=== PATIENT | female | born 1945 | race Caucasian/White ===

== ENCOUNTER 2016-04-02 16:22 | Observation (INO) | payer MEDICARE, OTHER ==
[~2016-04-02] VITALS: Ht 154.9 cm; Wt 44.5 kg
[~2016-04-02 16:22] MED LIST: AMOX1TAB11 PO; CALC600T4 PO; CHOL10003 PO; CHOL400T2 PO; EZET10TA3 PO; FOLI1TAB16 PO; MULT-460 PO; NADO40TA PO; OMEG100020 PO; OMEG500C3 PO; PANT40TA5 PO; POTA10TA31 PO; RIFA550T PO; SIMV40TA3 PO; UBID100C PO; [UNRECOGNIZED DRUG - CODE] PO
[2016-04-02 16:59] LABS: BILIRUBIN,URINE NEGATIVE (NEG); GLUCOSE,URINE NEGATIVE (NEG); NITRITE,URINE NEGATIVE (NEG); PH,URINE 7.5; PROTEIN,URINE NEGATIVE (NEG-TRACE); UROBILINOGEN,URINE 0.2 mg/dL (0.2 mg/dL)
[2016-04-02 17:17] LABS: BACTERIA,URINE 0 /HPF (0-FEW); RBC,URINE 0 /HPF (0-2); SQUAMOUS EPITHELIAL CELL,UR FEW /LPF; WBC,URINE 0 /HPF (0-4)
[2016-04-02 18:03] LABS: CALCIUM 9.1 mg/dL (8.5-10.1); CREATININE 0.8 mg/dL (0.6-1.0); GFR 70.5; POTASSIUM 5.2 mmol/L (3.5-5.1)
[2016-04-02 18:06] LABS: ALBUMIN 2.4 g/dL (3.4-5.0); DIRECT BILIRUBIN 0.8 mg/dL (0.0-0.2); TOTAL BILIRUBIN 2.2 mg/dL (0.2-1.0); TOTAL PROTEIN 8.1 g/dL (6.4-8.2)
[2016-04-02] MEDS ORDERED: ONDANSETRON PF 4 MG/2 ML VIAL. IV PRN (19:15)
[2016-04-02] MEDS ORDERED: MORPHINE SULFATE 2 MG/ML DISP.SYRIN. IV PRN (19:15)
--- NOTE | 2016-04-02 19:22 | PHYS DOC ---
Past Medical History Past Medical History: Alcoholism, COPD, High Cholesterol Additional Past Medical Histor: cirrhosis of liver Past Surgical History: Cholecystectomy, Other Additional Past Surgical Histo: ABD SURGERY, back surgery Alcohol Use: Heavy Drug Use: None Adult General Chief Complaint Chief Complaint: WEAKNESS/GENERALIZED HPI HPI 71-year-old female presenting to the emergency department today with generalized weakness vomiting and diarrhea this started around 10:30 today. She also reports general numbness in her fingertips of both hands. He also complains of pain in her thighs. The pain in her thighs is sharp mild intermittent and without alleviating factors. Review of Systems Review of Systems ROS negative for chest pain shortness of breath fevers chills. She denies abdominal pain. All other review of systems is negative unless otherwise noted in history of present illness. Current Medications Current Medications Current Medications Medications (Trade) Dose Ordered Sig/Sherri Start Time Stop Time Status Last Admin Dose Admin Morphine Sulfate 2 mg PRN Q2HR PRN 04/02/16 19:15 04/03/16 19:14 Ondansetron HCl (Zofran) 4 mg PRN Q8HRS PRN 04/02/16 19:15 04/03/16 19:14 Allergies Allergies Allergies Coded Allergies Type Severity Reaction Last Updated Verified No Known Drug Allergies 03/13/13 No Physical Exam Physical Exam Constitutional: Well developed, well nourished, no acute distress, non-toxic appearance. HENT: Normocephalic, atraumatic, bilateral external ears normal, oropharynx moist, no oral exudates, nose normal. Eyes: PERRLA, EOMI, conjunctiva normal, no discharge. [] Neck: Normal range of motion, no tenderness, supple, no stridor. Cardiovascular:Heart rate regular rhythm, no murmur [] Lungs & Thorax: Bilateral breath sounds clear to auscultation Abdomen: Soft nontender abdomen without rebound tenderness or guarding present. Negative McBurneys point. Negative Rincon sign. No ecchymosis present. Skin: Warm, dry, no erythema, no rash. [] Back: No tenderness, no CVA tenderness. Extremities: No tenderness, no cyanosis, no clubbing, ROM intact, no edema. [] Neurologic: Mental status: Awake oriented and alert x3 Cranial nerves: Extraocular movements intact, eyebrows anita bilaterally smile symmetric, uvula elevation, shoulder shrug intact, tongue protrusion normal DTRs: 2+ Sensation: equal and normal in all extremities Strength: 5/5 in upper and lower extremities bilaterally Psychologic: Affect normal, judgement normal, mood normal. Current Patient Data Vital Signs Vital Signs Date Time Temp Pulse Resp B/P Pulse Ox O2 Delivery O2 Flow Rate FiO2 04/02/16 17:30 56 20 134/65 97 04/02/16 17:01 97.7 Room Air 97.7 Lab Values Laboratory Tests Test 04/02/16 16:50 04/02/16 17:25 04/02/16 18:20 Urine Collection Type Unknown Urine Color Irma Urine Clarity Cloudy Urine pH 7.5 Urine Specific Posey 1.015 Urine Protein Negativemg/dL (NEG-TRACE) Urine Glucose (UA) Negativemg/dL (NEG) Urine Ketones (Stick) Negativemg/dL (NEG) Urine Blood Negative (NEG) Urine Nitrite Negative (NEG) Urine Bilirubin Negative (NEG) Urine Urobilinogen Dipstick 0.2mg/dL (0.2 mg/dL) Urine Leukocyte Esterase Negative (NEG) Urine RBC 0/HPF (0-2) Urine WBC 0/HPF (0-4) Urine Squamous Epithelial Cells Few/LPF Urine Renal Epithelial Cells Occ/LPF Urine Bacteria 0/HPF (0-FEW) Urine Hyaline Casts Many/HPF Urine Granular Casts Few/HPF Urine Mucus Mod/LPF Prothrombin Time 17.0SEC (11.7-14.0) H Prothrombin Time INR 1.5 (0.8-1.1) H PTT 48SEC (24-38) H Sodium Level 134mmol/L (136-145) L Potassium Level 5.2mmol/L (3.5-5.1) H Chloride Level 100mmol/L (98-107) Carbon Dioxide Level 21mmol/L (21-32) Anion Gap 13 (6-14) Blood Urea Nitrogen 11mg/dL (7-20) Creatinine 0.8mg/dL (0.6-1.0) Estimated GFR (Cockcroft-Gault) 70.5 Glucose Level 102mg/dL (70-99) H Calcium Level 9.1mg/dL (8.5-10.1) Total Bilirubin 2.2mg/dL (0.2-1.0) H Direct Bilirubin 0.8mg/dL (0.0-0.2) H Aspartate Amino Transferase (AST) 170U/L (15-37) H Alanine Aminotransferase (ALT) 35U/L (14-59) Alkaline Phosphatase 232U/L (46-116) H Troponin I Quantitative < 0.017ng/mL (0.000-0.055) BJ-Yly-J-Type Natriuretic Peptide 298pg/mL (0-124) H Total Protein 8.1g/dL (6.4-8.2) Albumin 2.4g/dL (3.4-5.0) L Lipase 76U/L (73-393) White Blood Count 6.7x10^3/uL (4.0-11.0) Red Blood Count 2.83x10^6/uL (3.50-5.40) L Hemoglobin 9.9g/dL (12.0-15.5) L Hematocrit 28.1% (36.0-47.0) L Mean Corpuscular Volume 99fL (79-100) Mean Corpuscular Hemoglobin 35pg (25-35) Mean Corpuscular Hemoglobin Concent 35g/dL (31-37) Red Cell Distribution Width 19.0% (11.5-14.5) H Platelet Count 63x10^3/uL (140-400) L Neutrophils (%) (Auto) 66% (31-73) Lymphocytes (%) (Auto) 21% (24-48) L Monocytes (%) (Auto) 11% (0-9) H Eosinophils (%) (Auto) 2% (0-3) Basophils (%) (Auto) 1% (0-3) Neutrophils # (Auto) 4.4x10^3uL (1.8-7.7) Lymphocytes # (Auto) 1.4x10^3/uL (1.0-4.8) Monocytes # (Auto) 0.7x10^3/uL (0.0-1.1) Eosinophils # (Auto) 0.1x10^3/uL (0.0-0.7) Basophils # (Auto) 0.1x10^3/uL (0.0-0.2) Laboratory Tests 04/02/16 18:20 Laboratory Tests 04/02/16 17:25 EKG EKG [] EKG shows sinus rhythm with a regular rate. [place] is leftward. Intervals are within normal limits. ST segments are congruent. Patient has increased amplitude in the T waves in lead 1 and aVL. Course & Med Decision Making Course & Med Decision Making Pertinent Labs and Imaging studies reviewed. (See chart for details) 71 yo F presenting to the ED with generalized weakness today. Vital signs were unremarkable. Physical exam showed 5/5 strength in upper and lower extremities with a nonfocal neuro exam. labs obtained which showed elevated bili and transaminases with prolonged INR suggestive of liver disease. Pt reports hx of liver biopsy that was "unremarkable." CBC sent but lab had to run multiple times for unknown reason. Blood smear sent. Pt was then admitted to her PCP for further evaluation workup and care. GI consult placed. Dragon Disclaimer Dragon Disclaimer This electronic medical record was generated, in whole or in part, using a voice recognition dictation system. Departure Departure Impression: Primary Impression: Generalized weakness Disposition: ADMITTED INPATIENT Admitting Physician: Micaela Crow Condition: STABLE Referrals: JEMIMA EMERY MD (PCP) BRITTNEY TATUM MD Apr 02, 2016 19:22
[2016-04-02 19:57] LABS: INR 1.5 (0.8-1.1)
[2016-04-02 21:12] LABS: BASO # 0.1 x10^3/uL (0.0-0.2); BASO % 1 % (0-3); EOS % 2 % (0-3); HEMATOCRIT 28.1 % (36.0-47.0); HEMOGLOBIN 9.9 g/dL (12.0-15.5); LYMPH # 1.4 x10^3/uL (1.0-4.8); LYMPH % 21 % (24-48); MEAN CORPUSCULAR HEMOGLOBIN 35 pg (25-35); MEAN CORPUSCULAR HGB CONC 35 g/dL (31-37); MEAN CORPUSCULAR VOLUME 99 fL (79-100); MONO % 11 % (0-9); NEUT % 66 % (31-73); PLATELET COUNT 63 x10^3/uL (140-400); RED BLOOD COUNT 2.83 x10^6/uL (3.50-5.40); WHITE BLOOD COUNT 6.7 x10^3/uL (4.0-11.0)
--- NOTE | 2016-04-02 21:28 | EKG ---
[facility] [address] [place] [address] Test Date: 2016-04-02 Test Time: 17:15:09 Pat Name: JAMES BARR Department: Room: 508 1 Gender: Female Cargo Mate: : [id number] Requested By: BRITTNEY TATUM Order Number: [id number] Reading MD: Josselyn Mancini Measurements Intervals [place] Rate: 60 P: -90 MS: 166 QRS: -15 QRSD: 80 T: 2 QT: 418 QTc: 418 Interpretive Statements SINUS RHYTHM LEFTWARD AXIS QRS(T) CONTOUR ABNORMALITY CONSISTENT WITH INFERIOR INFARCT AGE UNDETERMINED T ABNORMALITY IN ANTEROSEPTAL LEADS ABNORMAL ECG Electronically Signed On 04-05-2016 23:27:25 [employer] TEAM MEMBER by Josselyn Mancini
[2016-04-02 21:45] VITALS: BP 124/69
--- NOTE | 2016-04-02 22:37 | ACF ---
Admission Forms Criteria GENERAL ADMISSION CRITERIA (Place 'X' for any and all applicable criteria): Admission is indicated for ANY ONE of the following: [ ]I. Hemodynamic instability as indicated by ANY ONE of the following(1)(2) (3)(4)(5): [ ]a) Vital sign abnormality not readily corrected by appropriate treatment within 12 to 24 hours indicated by ANY ONE of the following: [ ]i) Hypotension [ ]ii) Symptomatic Tachycardia unresponsive to treatment (eg , analgesia, fluids, sedation as indicated) [ ]iii) Orthostatic vital sign changes unresponsive to treatment (eg, fluids) [ ]b) Vital sign abnormality that is severe indicated by ANY ONE of the following: [ ]i) Inadequate perfusion indicated by ANY ONE of the following: [ ]1) Lactic acidosis (greater than 2 mmol/L) [ ]2) New abnormal capillary refill (greater than 3 seconds) [ ]3) Other metabolic acidosis (arterial pH less than 7.35) not otherwise explained [ ]4) Reduced urine output [ ]5) Altered mental status [ ]6) Myocardial Ischemia [ ]v) Mean arterial pressure[A] less than 60 mm Hg [ ]vi) Mean arterial pressure[A] less than 70 mm Hg after 30 minutes of appropriate treatment (eg, fluid resuscitation) [ ]vii) IV inotropic or vasopressor medication required to maintain adequate blood pressure or perfusion [ ]viii) Sustained heart rate greater than 120 beats per minute in adult or child 6 years or older[B]] [ ]II. Hypertension requiring inpatient treatment as indicated by ANY ONE of the following(6)(7)(8): [ ]a) SBP greater than 220 mm Hg or DBP greater than 120 mm Hg despite treatment [ ]b) SBP greater than 140 mm Hg or DBP greater than 100 mm Hg with evidence of acute end organ damage as indicated by ANY ONE of the following: [ ]i) Encephalopathy [ ]ii) Acute renal failure as indicated by new onset of ANY ONE of the following(9)(10)(11)(12)(13): [ ]1) A 3-fold rise in serum creatinine from baseline [ ]2) Serum creatinine greater than 4 mg/dL ( 354 micromoles/L) with acute rise greater than 0.5 mg/dL (44.2 micromoles/L) [ ]3) Reduction of more than 75% in estimated glomerular filtration rate from baseline [ ]4) Estimated glomerular filtration rate less than 35 mL/min/1.73m2 (0.59 mL/sec/1.73m2) in child up to 18 years of age [ ]5) Cessation of urine output indicated by ALL of the following: [ ]A. Adequate volume status [ ]B. Inadequate urine output as indicated by ANY ONE of the following: [ ]a. Urine output less than 0.3 mL/kg/hr for 24 hours [ ]b. Anuria (urine output less than 0.1 mL/kg/hr) for 12 hours [ ]iii) Aortic dissection [ ]iv) Myocardial ischemia [ ]v) Left ventricular heart failure [ ]vi) Retinal hemorrhage [ ]vii) Other significant finding [ ]c) Hypertension in child requiring inpatient treatment as indicated by ALL of the following(14)(15)(16): [ ]i) Outpatient treatment not effective, not available, or not appropriate [ ]ii) SBP or DBP greater than 95th percentile for age [ ]iii) Evidence of acute end organ damage as indicated by ANY ONE of the following: [ ]1) Altered mental status [ ]2) Acute renal failure as indicated by new onset of ANY ONE of the following(9)(10)(11)(12)(13): [ ]A. A 3-fold rise in serum creatinine from baseline [ ]B. Serum creatinine greater than 4 mg/dL (354 micromoles/L) with acute rise greater than 0.5 mg/dL (44.2 micromoles/L) [ ]C. Reduction of more than 75% in estimated glomerular filtration rate from baseline [ ]D. Estimated glomerular filtration rate less than 35 mL/min/1.73m2 (0.59 mL/sec/1.73m2)in child up to 18 years of age [ ]E. Cessation of urine output indicated by ALL of the following: [ ]a. Adequate volume status [ ]b. Inadequate urine output as indicated by ANY ONE of the following: [ ]1) Urine output less than 0.3 mL/kg/hr for 24 hours [ ]2) Anuria (urine output less than 0.1 mL/kg/hr) for 12 hours [ ]3) Severe headache [ ]4) Visual disturbance [ ]5) Retinal hemorrhage [ ]6) Other significant finding [ ]III. Acute cardiac or peripheral ischemia as indicated by ANY ONE of the following: [ ]a) Acute coronary syndrome(17)(18) [ ]b) Acute peripheral ischemia (eg, pulseless, cool, mottled, or cyanotic extremity)(19) [ ]IV. Cardiac arrhythmias or findings of immediate concern indicated by ANY ONE of the following(20)(21): [ ]a) Heart rhythms that are inherently dangerous or unstable indicated by ANY ONE of the following(22)(23)(24): [ ]i) Resuscitated ventricular fibrillation or cardiac arrest [ ]ii) Ventricular escape rhythm [ ]iii) Sustained ventricular tachycardia (30 seconds or more of ventricular rhythm at greater than 100 beats per minute) [ ]iv) Nonsustained ventricular tachycardia and ANY ONE of the following: [ ]1) Suspected cardiac ischemia as cause or consequence of ventricular tachycardia [ ]2) In setting of acute myocarditis [ ]b) Unstable cardiac conduction defects indicated by ANY ONE of the following(24)(25)(26): [ ]i) Type II second-degree atrioventricular block [ ]ii) Third-degree atrioventricular block [ ]iii) New-onset left bundle branch block with suspected myocardial ischemia [ ]c) Any heart rhythm and ANY ONE of the following(22)(23)(27)(28)( 29): [ ] i) Continuous long-term ECG monitoring needed (eg, initiation of drug requiring monitoring for more than 24 hours) [ ] ii) Patient has automatic implanted cardioverter defibrillator that is repeatedly firing, malfunctioning, or in need of immediate adjustment of settings beyond the scope of ambulatory or observation care. [ ]d) Heart rhythms of concern due to ANY ONE of the following: [ ]i) Hypotension [ ]ii) Respiratory distress [ ]iii) Association with other significant symptoms (eg, bradycardia with syncope or ongoing dizziness, supraventricular tachycardia with chest pain) (27)(28) (30) [ ] V. Severe heart failure as indicated by ANY ONE of the following ( 31)(32): [ ]a) Respiratory distress [ ]b) Hypotension [ ]c) Anasarca (refractory to outpatient therapy) [ ]d) Cardiac arrhythmias of immediate concern [ ]e) Myocardial ischemia [ ]. Respiratory abnormalities, including ANY ONE of the following(33)(34) (35)(36): [ ]a) Respiratory rate greater than 30 breaths per minute unresponsive to treatment [A] [ ]b) New saturation of arterial oxygen less than 90% [ ]c) New partial pressure of carbon dioxide greater than 44 mm Hg ( 5.9 kPa) [ ]d) Supplemental oxygen or respiratory treatments needed that are new or not performable at other levels of care [ ]e) New-onset cyanosis [ ]f) Inability to protect airway [ ]g) Chronic lung disease with severe deterioration (not responsive to emergency and observation care treatment as appropriate) as indicated by ANY ONE of the following(34)(36 ): [ ]i) SaO2 5% below baseline in patient with chronic hypoxemia [ ]ii) New requirement for supplemental oxygen to keep SaO2 at baseline or acceptable level [ ]iii) Required supplemental oxygen performable only in acute inpatient setting [ ]iv) Severe airflow or ventilation abnormalities [ ]v) Previously mobile patient unable to walk between rooms [ ]vi Inability to eat or sleep due to dyspnea [ ]vii) Rapid rate of exacerbation onset [ ]viii) Altered mental status ]VII. Severe airflow or ventilation abnormalities (not responsive to emergency and observation care treatment as appropriate) as indicated by ANY ONE of the following(33)(34)(35)(37): [ ]a) PCO2 greater than 42 mm Hg (5.6 kPa) and pH less than 7.35 (new ) [ ]b) Documented PCO2 increased more than 5 mm Hg (0.7 kPa) from disease baseline [ ]c) Airflow measurements [B] less than 60% of previous best or predicted (eg, peak expiratory flow rate less than 300 L/minute) despite intensive emergent treatment [C] [ ]d) Required respiratory treatments that are performable only in acute inpatient setting [ ]VIII. Impending or actual respiratory arrest ( Also use Respiratory Failure GRG for severe respiratory disease and long-term mechanical ventilation patients) [ ]IX. Neurologic abnormalities, including ANY ONE of the following: [ ]a) New findings that suggest ANY ONE of the following: [ ]i) [employer] infection(38) [ ]ii) Cerebral bleeding, ischemia, or vasospasm(39)(40) [ ]iii) Increased intracranial pressure, hydrocephalus, or cerebral edema(41)(42)(43) [ ]iv) Spinal cord injury(44) [ ]b) Uncontrolled seizures(45) [ ]c) New-onset coma (eg, Meyers Chuck coma scale score less than 9) or unexplained abnormal mental status (eg, Juliana coma scale score less than 14) [D](41)(46)(47) [ ]X. New-onset severe neurologic findings requiring inpatient care; examples include(42)(48)(49): [ ]a) Papilledema [ ]b) Cerebral edema [ ]c) Mass effect on CT scan [ ]XI. Suspected acute intra-abdominal process with peritoneal signs, abdominal mass, or similar findings (50)(51)(52) [ ]XII. Severe physiologic disorder remaining after emergency or observation level care (as appropriate) as indicated by ANY ONE of the following (53): [ ]a) Significant dehydration [ ]b) Diabetic ketoacidosis [ ]c) Hyperglycemic hyperosmolar state (eg, osmolality greater than 320 mOsm/kg (mmol/kg) [ ]d) Hypoglycemia [ ]e) Other (new) acid-base disorder with pH less than 7.35 or greater than 7.5(54) [ ]f) Thyroid storm (55) [ ]g) Myxedema coma (55) [ ]XIII. Abdominal abnormalities with ANY ONE of the following(56)(57): [ ]a) Absent bowel sounds with complete ileus [ ]b) Signs of intestinal obstruction or peritonitis [E] [ ]c) Nausea and vomiting that cannot be controlled with outpatient or observation care [ ]XIV. Acute renal failure as indicated by new onset of ANY ONE of the following(9)(10)(11)(12)(13): [ ]a) A 3-fold rise in serum creatinine from baseline [ ]b) Serum creatinine greater than 4 mg/dL (354 micromoles/L) with acute rise greater than 0.5 mg/dL (44.2 micromoles/L) [ ]c) Reduction of more than 75% in estimated glomerular filtration rate from baseline [ ]d) Estimated glomerular filtration rate less than 35 mL/min/ 1.73m2 (0.59 mL/sec/1.73m2) in child up to 18 years of age [ ]e) Cessation of urine output indicated by ALL of the following: [ ]i) Adequate volume status [ ]ii) Inadequate urine output as indicated by ANY ONE of the following: [ ]1) Urine output less than 0.3 mL/kg/hr for 24 hours [ ]2) Anuria (urine output less than 0.1 mL/kg/hr) for 12 hours [ ]XV. Significant uremic complications as indicated by ANY ONE of the following(58)(59)(60): [ ]a) Outpatient therapy is ineffective or not feasible for ANY ONE of the following: [ ]i) Severe heart failure [ ]ii) Severehypertension [ ]iii) Pleural effusion [ ]iv) Pericarditis or pericardial effusion [ ]b) Cardiac arrhythmias of immediate concern [ ]c) Intractable nausea or vomiting [ ]d) Recurrent seizures [ ]e) Encephalopathy [ ]f) Bleeding abnormalities (eg, platelet dysfunction) with active (eg, gastrointestinal) bleeding [ ]g) Dialysis indicated before long-term access or ambulatory arrangements can be made [ ]h) Significant metabolic or electrolyte abnormalities (eg, severe acidosis or hyperkalemia) [ ]XVI. High fever or other high-risk infection situation as indicated by ANY ONE of the following(61)(62)(63)(64): [ ]a) Outpatient and observation care antimicrobial treatment unavailable, not effective, or not appropriate [ ]b) Documented bacteremia [ ]c) Temperature greater than 40.5 degrees C (104.9 degrees F) ( oral) [ ]d) Temperature greater than 39.5 degrees C (103.1 degrees F) ( oral) or less than 36 degrees C (96.8 degrees F) (rectal) that does not respond to e treatment and observation care [ ] XVII. Temperature less than 95 degrees F (35 degrees C)(rectal)(65) [ ] XVIII. Severe nutritional abnormalities as indicated by ALL of the following (66)(67): [ ]a) Inability to tolerate or establish sufficient oral or other enteral nutrition in outpatient setting [ ]b) Parenteral nutrition regimen need that must be implemented on inpatient basis [X ] XIX. Severe electrolyte abnormalities indicated by ALL of the following(68 )(69)(70): [X ]a) Electrolytes and associated findings are not as expected for patient baseline or acceptable treatment effects. [X ]b) Severe abnormalities indicated by ANY ONE of the following: [ ]i) Sodium less than 130 mEq/L (mmol/L) (new) [ ]ii)Sodium less than 135 mEq/L (mmol/L) with ANY ONE of the following: [ ]1) Uncorrectable (to near normal or chronic baseline) after trial of outpatient and emergency treatment [ ]2) Altered mental status [ ]3) Seizures [ ]4) Severe medical etiology requiring inpatient management (eg, heart failure, hypovolemia) [ ]iii) Sodium greater than 155 mEq/L (mmol/L) [ ]iv) Sodium greater than 150 mEq/L (mmol/L) with ANY ONE of the following: [ ]1) Uncorrectable (to near normal or chronic baseline) with outpatient and emergency treatment [ ]2) Altered mental status [ ]3) Seizures [ ]4) Severe medical etiology (eg, hypovolemia, diabetes insipidus) [ ]v) Potassium less than 2.5 mEq/L (mmol/L) despite outpatient and emergency treatment [ ]vi) Potassium less than 3 mEq/L (mmol/L) with ANY ONE of the following: [ ]1) Weakness [ ]2) Cardiac abnormality (eg, arrhythmia, conduction disturbance) [ ]3) Cardiac ischemia [ ]4) Ileus [ ]5) Ongoing medical cause requiring inpatient management (eg, acute renal wasting or SIADH) [ ]6) Other severe symptoms [ ]vii) Potassium greater than 6.5 mEq/L (mmol/L) [ X]viii) Potassium greater than 5 mEq/L (mmol/L) with ANY ONE of the following: [ ]1) Uncorrectable (to near normal or chronic baseline) with outpatient and emergency treatment [ ]2) Severe ECG findings [F] [ ]3) Acute worsening of renal failure (creatinine greater than 2.5 mg/dL (221 micromoles/L) or significant elevation for age and size) [X ]4) Severe weakness [ ]5) Severe medical etiology (eg, hemolysis, infection, drug overdose) [ ]ix) Calcium less than 7 mg/dL (1.75 mmol/L) despite outpatient and emergency treatment (72) [ ]x) Calcium less than 8 mg/dL (2 mmol/L) with significant symptoms or findings; examples include(72): [ ]1) Altered mental status [ ]2) Muscle spasms [ ]3) Seizures [ ]4) Breathing difficulty [ ]5) Cardiac abnormality (eg, arrhythmia or conduction disturbance) [ ]xi) Calcium greater than 14 mg/dL (3.5 mmol/L)(72) [ ]xii) Calcium greater than 12 mg/dL (3 mmol/L) with ANY ONE of the following(72): [ ]1) Uncorrectable (to near normal or chronic baseline) with outpatient and emergency treatment [ ]2) Significant dehydration or hypovolemia as indicated by ALL of the following(70)(73)(74): [ ]A. Not resolved with initial treatments [ ]B. Clinically significant dehydration as indicated by ANY ONE of the following: [ ]a. Vomiting refractory to outpatient treatment (ie, precluding oral rehydration) [ ]b. Inability to drink [ ]c. Hypernatremia or other electrolyte abnormality unable to be corrected with outpatient and emergency treatment [ ]d. Failure to remain hydrated with outpatient therapy [ ]e. Reduced urine output [ ]f. Hypotension [ ]g. Serious cause for dehydration requiring acute hospitalization (eg, bowel obstruction, increased intracranial pressure, infectious cause) [ ]h. Child with ANY ONE of the following(75): [ ]1) Severe abdominal tenderness [ ]2) Adequate care not available at home [ ]3) Severe dehydration ( greater than 9% loss of body weight) [ ]4) Significant symptoms or findings; examples include: [ ]A. Altered mental status [ ]B. Cardiac abnormality (eg, arrhythmia, conduction disturbance) [ ]C. Malignant etiology requiring inpatient treatment [ ]xiii) Phosphorus less than 1 mg/dL (0.32 mmol/L) [ ]xiv) Phosphorus less than 1.5 mg/dL (0.48 mmol/L) with ANY ONE of the following: [ ]1) Patient unresponsive to outpatient and emergency treatment [ ]2) Significant symptoms or findings; examples include: [ ]A. Weakness [ ]B. Altered mental status [ ]C. Breathing difficulty [ ]D. Seizures [ ]E. Rhabdomyolysis [ ]xv) Phosphorus greater than 10 mg/dL (3.2 mmol/L) [ ]xvi) Phosphorus greater than 4.5 mg/dL (1.45 mmol/L) (new) with ANY ONE of the following: [ ]1) Severe medical etiology (eg, crush injury, acute renal failure) [ ]2) Associated hypocalcemia with significant findings; examples include: [ ]A. Neurologic symptoms [ ]B. Altered mental status [ ]C. Muscle spasms [ ]D. Seizures [ ]E. Breathing difficulty [ ]F. Cardiac abnormality (eg, arrhythmia, conduction disturbance) [ ]xvii) Magnesium less than 1 mg/dL (0.41 mmol/L) [ ]xviii) Magnesium less than 1.5 mg/dL (0.62 mmol/L) with ANY ONE of the following: [ ]1) Patient unresponsive to outpatient and emergency treatment [ ]2) Associated hypocalcemia with significant findings; examples include: [ ]A. Altered mental status [ ]B. Muscle spasms [ ]C. Seizures [ ]D. Breathing difficulty [ ]E. Cardiac abnormality (eg, arrhythmia , conduction disturbance) [ ]3) Associated hypokalemia (potassium less than 3 mEq/L (mmol/L)) with risk of arrhythmia [ ]xix) Magnesium greater than 4 mEq/L (2 mmol/L) [ ]xx) Magnesium greater than 2.5 mEq/L (1.25 mmol/L) with significant symptoms or findings; examples include: [ ]1) Weakness [ ]2) Altered mental status [ ]3) Cardiac abnormality (eg, arrhythmia, conduction disturbance) [ ]4) Breathing difficulty [ ]5) Severe medical etiology (eg, renal failure, hypovolemia) [ ]xxi) Uric acid greater than 20 mg/dL (1190 micromoles/L)(76) [ ]xxii) Uric acid greater than 8 mg/dL (476 micromoles/L) with significant symptoms or findings of tumor lysis syndrome; examples include(76): [ ]1) Creatinine greater than 1.5 times upper limit of normal [ ]2) Cardiac abnormality (eg, arrhythmia, conduction disturbance) [ ]3) Seizure [ ]XX. Acute blood loss causing significant abnormality as indicated by ANY ONE of the following(77)(78): [ ]a) Hemoglobin less than 10 g/dL (100 g/L) (not baseline) [ ]b) Hematocrit less than 30% (0.30) (not baseline) [ ]c) Repeat hematocrit decreased more than 2% (0.02) [ ]d) Uncontrolled bleeding [ ]XXI. Severe anemia indicated by ANY ONE of the following(78)(79): [ ]a) Altered mental status [ ]b) Chest pain [ ]c) Exertional dyspnea [ ]d) Syncope [ ]e) Other findings suggesting inadequate perfusion [ ]f) Treatment with transfusion or volume replacement is ineffective at resolving ANY ONE of the following [G]: [ ]i) Tachycardia for age [ ]ii) Orthostatic vital sign changes as indicated by ANY ONE of the following(80): [ ]1) Fall in SBP of 20 mm Hg or more 1 to 3 minutes after patient sits or stands from recumbent position [ ]2) Fall in DBP of 10 mm Hg or more 1 to 3 minutes after patient sits or stands from recumbent position [ ]XXII. High-risk low platelet count as indicated by ANY ONE of the following( 81)(82): [ ]a) Severe or life-threatening bleeding (eg, intracranial, major gastrointestinal, or extensive mucosal bleeding), with any reduced platelet count [ ]b) Platelet count less than 20,000/mm3 (20 x109/L) with any active bleeding [ ]c) Platelet count less than 10,000/mm3 (10 x109/L) with minor purpura or petechiae [ ]d) Platelet count less than 5000/mm3 (5 x109/L) [ ]e) Low platelet count with hemolytic anemia [ ]XXIII. Disseminated intravascular coagulation(77)(83) [ ]XXIV. Severe adverse drug or systemic toxin reaction requiring inpatient treatment; examples include(84)(85): [ ]a) Serotonin syndrome(86) [ ]b) Neuroleptic malignant syndrome(86) [ ]c) Cholinergic syndrome with severe symptoms (eg, bronchorrhea, weakness, mental status changes, seizures) [ ]d) Sympathetic syndrome with severe symptoms (eg, seizures, mental status changes, cardiac dysrhythmias) [ ]e) Anticholinergic syndrome [ ]XXV. Severe pain requiring acute inpatient management as indicated by ALL of the following (87)(88)(89): [ ]a) Continuous or frequent (eg, every 2 to 4 hours) parenteral analgesics required [H] [ ]b) Rapid improvement expected from treatment or acute intervention (eg, surgery, anesthesia procedure) [ ]XXVI.Severe behavioral health issues judged unmanageable at a lower level of care (eg, residential) in a patient who is ANY ONE of the following(91) [ ]a) Acutely suicidal [ ]b) A danger to self (eg, self-mutilating or suicidal behavior) [ ]c) A danger to others (eg, assaultive or homicidal behavior) [ ]d) Incapacitated because of grave disability (eg, inability to provide for self at lower level of care) (92) [ ]XXVII. Inpatient monitoring needed; examples include(1)(3)(87)(93)(94)(95)(96 ): [ ]a) Vital signs, neurologic signs, or vascular checks more frequently than every 4 hours [ ]b) Cardiac or respiratory monitoring beyond the scope (eg, over 24 hours) of observation care [ ]c) Pulmonary artery catheter monitoring [ ]d) Suspected compartment syndrome(97) (98) [ ]e) Cerebral bleeding, hydrocephalus, or vasospasm monitoring [ ]f) Increased intracranial pressure or cerebral edema monitoring [ ]g) monitoring [ ]XXVIII. Treatment requiring inpatient care; examples include: [ ]a) IV fluid to replace significant ongoing losses (greater than 3 L/m2 per day)(53) [ ]b) High concentration oxygen (greater than 40%)(33)(99)(100) [ ]c) Frequent respiratory therapy (more frequently than every 4 hours) to maintain airflow rates greater than 60% of baseline(33)(99)(100) [ ]d) Epidural analgesia(87) [ ]e) IV anticoagulation, vasoactive, or antiarrhythmic medication(19 )(23) [ ]f) Acute thrombolytics (generally require 24 hours of observation )(101)(102) [ ]XXIX. Emergency procedures needed; examples include: [ ]a) Emergency inpatient surgery [ ]b) Temporary pacemaker placement(103) [ ]c) Chest tube placement with active evacuation (eg, suction, drainage)(104) [ ]d) Emergent cardioversion(105) [ ]e) Emergent cardiac or vascular procedures (eg, cardiac catheterization, angioplasty) (17)(18) [ ]f) Emergent dialysis access placement and institution(10)(106) [ ]g) Emergent pericardiocentesis(107) [ ]h) Emergent plasmapheresis or leukapheresis(83) [ ]i) Emergent tracheostomy The original [employer] content created by [employer] has been revised. The portions of the content which have been revised are identified through the use of italic text or in bold, and [employer] has neither reviewed nor approved the modified material. All other unmodified content is copyright [employer]. Please see references footnoted in the original [employer] edition 2016 Admission Criteria Met?: Yes WINTER ANGUIANO Apr 02, 2016 22:37
[2016-04-02 23:00] VITALS: BP 124/69
[2016-04-02] MEDS ORDERED: MAGN400T22 PO (23:28)
[2016-04-02] MEDS ORDERED: SPIR50TA2 PO (23:30)
[2016-04-02] MEDS ORDERED: NEOM500T PO (23:30)
[2016-04-03 02:57] VITALS: BP 102/59
[2016-04-03 05:45] LABS: CALCIUM 8.7 mg/dL (8.5-10.1); CREATININE 0.8 mg/dL (0.6-1.0); GFR 70.5; POTASSIUM 4.4 mmol/L (3.5-5.1)
[2016-04-03 05:47] LABS: BASO # 0.1 x10^3/uL (0.0-0.2); BASO % 1 % (0-3); EOS % 4 % (0-3); HEMATOCRIT 28.3 % (36.0-47.0); HEMOGLOBIN 9.8 g/dL (12.0-15.5); LYMPH # 1.6 x10^3/uL (1.0-4.8); LYMPH % 22 % (24-48); MEAN CORPUSCULAR HEMOGLOBIN 35 pg (25-35); MEAN CORPUSCULAR HGB CONC 35 g/dL (31-37); MEAN CORPUSCULAR VOLUME 102 fL (79-100); MONO % 13 % (0-9); NEUT % 61 % (31-73); PLATELET COUNT 58 x10^3/uL (140-400); RED BLOOD COUNT 2.78 x10^6/uL (3.50-5.40); RED CELL DISTRIBUTION WIDTH 18.5 % (11.5-14.5); WHITE BLOOD COUNT 7.2 x10^3/uL (4.0-11.0)
[2016-04-03 07:00] VITALS: BP 96/55
--- NOTE | 2016-04-03 08:41 | RAD ---
Indication fatigue. Shortness of breath. A single view of the chest was obtained. Note is made of a previous examination just over 2 months earlier. The heart and pulmonary vessels are within normal limits. A focal infiltrate is not seen. Volume loss seen previously at the left lung base has cleared. IMPRESSION: No acute finding apparent in the chest
--- NOTE | 2016-04-03 09:37 | PDOC2 ---
GI CONSULT Reason For Consult: Cirrhosis HPI: HPI: 71 y/o female previously evaluation by GI/Dr. Jackson in Dec-Jan 2016. 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 She says she has been sober since 01/19/16. EGD for ?GI bleed in 12/2015 showed Billroth II anatomy, normal esophagus, and nonerosive gastritis. CT in 01/2016 showed nodular liver c/w cirrhosis. She reports having a previous liver biopsy (unsure where). She is on PPI and spironolactone at home. On this occasion, she was admitted through the ER overnight; she was evaluated for weakness ("I felt shaky, unsteady, and anxious"), vomiting, and diarrhea which apparently began yesterday w/o precipitating events. ER note also mentions numbness in her fingertips and thigh pain. She hasn't had much of an appetite lately and might have lost about 5 pounds or so. She drinks Boost at home. She denies heartburn, abdominal pain, hematemesis, hematochezia, and melena. No NSAID use. She lives alone; her daughter lives in the area but is sick with a cold. Labs show WBC 7.2, Hgb 9.8 (was 8.4 in 01/2016), plt 58 (was 137 in 01/2016), MCV 102, INR 1.5, INR 1.5, bili 2.2, AST 170, ALT 35, Alk Phos 232. C Diff and ammonia have been ordered. This morning, she feels okay GI-lopez except she barely touched her breakfast. No recurrence of vomiting or diarrhea since admission. She says she is too weak to get to the commode. PMH: PMH: alcoholic cirrhosis, HTN, HLD, COPD, pancreatitis, GERD, cholecystectomy, appendectomy, back surgery, liver biopsy, Billroth II FH: Family History: No pertinent hx Social History: Smoke: <1 pack per day ALCOHOL: heavy (says sober since 01/19/16) Drugs: None ROS: GEN: Denies fevers, chills, sweats HEENT: Denies blurred vision, sore throat CV: Denies chest pain RESP: Denies shortness of air, cough GI: Per HPI : Denies hematuria, dysuria ENDO: weight loss NEURO/PSYCH: anxiety MSK: weakness SKIN: Denies jaundice, pruritus VItals: Vitals: Vital Signs Date Time Temp Pulse Resp B/P Pulse Ox O2 Delivery O2 Flow Rate FiO2 04/03/16 07:00 97.9 62 18 96/55 96 Room Air 97.9 Labs: Labs: Laboratory Tests Test 04/02/16 16:50 04/02/16 17:25 04/02/16 18:20 04/03/16 05:00 Urine Collection Type Unknown Urine Color Irma Urine Clarity Cloudy Urine pH 7.5 Urine Specific [place] 1.015 Urine Protein Negativemg/dL (NEG-TRACE) Urine Glucose (UA) Negativemg/dL (NEG) Urine Ketones (Stick) Negativemg/dL (NEG) Urine Blood Negative (NEG) Urine Nitrite Negative (NEG) Urine Bilirubin Negative (NEG) Urine Urobilinogen Dipstick 0.2mg/dL (0.2 mg/dL) Urine Leukocyte Esterase Negative (NEG) Urine RBC 0/HPF (0-2) Urine WBC 0/HPF (0-4) Urine Squamous Epithelial Cells Few/LPF Urine Renal Epithelial Cells Occ/LPF Urine Bacteria 0/HPF (0-FEW) Urine Hyaline Casts Many/HPF Urine Granular Casts Few/HPF Urine Mucus Mod/LPF Prothrombin Time 17.0SEC (11.7-14.0) Prothromb Time International Ratio 1.5 (0.8-1.1) Activated Partial Thromboplast Time 48SEC (24-38) Sodium Level 134mmol/L (136-145) 136mmol/L (136-145) Potassium Level 5.2mmol/L (3.5-5.1) 4.4mmol/L (3.5-5.1) Chloride Level 100mmol/L (98-107) 100mmol/L (98-107) Carbon Dioxide Level 21mmol/L (21-32) 21mmol/L (21-32) Anion Gap 13 (6-14) 15 (6-14) Blood Urea Nitrogen 11mg/dL (7-20) 13mg/dL (7-20) Creatinine 0.8mg/dL (0.6-1.0) 0.8mg/dL (0.6-1.0) Estimated GFR (Cockcroft-Gault) 70.5 70.5 Glucose Level 102mg/dL (70-99) 62mg/dL (70-99) Calcium Level 9.1mg/dL (8.5-10.1) 8.7mg/dL (8.5-10.1) Total Bilirubin 2.2mg/dL (0.2-1.0) Direct Bilirubin 0.8mg/dL (0.0-0.2) Aspartate Amino Transf (AST/SGOT) 170U/L (15-37) Alanine Aminotransferase (ALT/SGPT) 35U/L (14-59) Alkaline Phosphatase 232U/L (46-116) Troponin I Quantitative < 0.017ng/mL (0.000-0.055) JR-Dmb-C-Type Natriuretic Peptide 298pg/mL (0-124) Total Protein 8.1g/dL (6.4-8.2) Albumin 2.4g/dL (3.4-5.0) Lipase 76U/L (73-393) White Blood Count 6.7x10^3/uL (4.0-11.0) 7.2x10^3/uL (4.0-11.0) Red Blood Count 2.83x10^6/uL (3.50-5.40) 2.78x10^6/uL (3.50-5.40) Hemoglobin 9.9g/dL (12.0-15.5) 9.8g/dL (12.0-15.5) Hematocrit 28.1% (36.0-47.0) 28.3% (36.0-47.0) Mean Corpuscular Volume 99fL (79-100) 102fL (79-100) Mean Corpuscular Hemoglobin 35pg (25-35) 35pg (25-35) Mean Corpuscular Hemoglobin Concent 35g/dL (31-37) 35g/dL (31-37) Red Cell Distribution Width 19.0% (11.5-14.5) 18.5% (11.5-14.5) Platelet Count 63x10^3/uL (140-400) 58x10^3/uL (140-400) Neutrophils (%) (Auto) 66% (31-73) 61% (31-73) Lymphocytes (%) (Auto) 21% (24-48) 22% (24-48) Monocytes (%) (Auto) 11% (0-9) 13% (0-9) Eosinophils (%) (Auto) 2% (0-3) 4% (0-3) Basophils (%) (Auto) 1% (0-3) 1% (0-3) Neutrophils # (Auto) 4.4x10^3uL (1.8-7.7) 4.4x10^3uL (1.8-7.7) Lymphocytes # (Auto) 1.4x10^3/uL (1.0-4.8) 1.6x10^3/uL (1.0-4.8) Monocytes # (Auto) 0.7x10^3/uL (0.0-1.1) 0.9x10^3/uL (0.0-1.1) Eosinophils # (Auto) 0.1x10^3/uL (0.0-0.7) 0.3x10^3/uL (0.0-0.7) Basophils # (Auto) 0.1x10^3/uL (0.0-0.2) 0.1x10^3/uL (0.0-0.2) Allergies: Coded Allergies: No Known Drug Allergies (Unverified , 03/13/13) Medications: Please see EMR. Imaging: Imaging: CXR 04/03/16 IMPRESSION: No acute finding apparent in the chest. PE: GEN: NAD HEENT: Atraumatic, PERRL LUNGS: CTAB HEART: RRR +murm ABD: NABS, S/ND/NT EXTREMITY: No edema SKIN: No rashes, no jaundice NEURO/PSYCH: A & O 3, rather flat A/P: A/P: Alcoholic cirrhosis -says sober since 01/19/16 -CT in 01/2016 showed nodular liver (cirrhosis) -on spironolactone at home Anorexia - ongoing Vomiting, diarrhea - improved Weakness Elevated LFTs H/o Billroth II -last EGD 12/2015 GERD -on PPI -- ?still drinking Will review w/ Dr. Wynne, but seems vomiting and diarrhea are improved for now. IVY BETH Apr 03, 2016 09:37
[2016-04-03] MEDS: PANTOPRAZOLE 40 MG TABLET. PO SCH (10:00)
[2016-04-03 11:00] VITALS: BP 110/61
[2016-04-03] MEDS: NEOMYCIN SULFATE 500 MG TABLET PO SCH ×2 (11:17→21:47)
[2016-04-03] MEDS: SPIRONOLACTONE 25 MG TABLET PO SCH (11:17)
[2016-04-03] MEDS ORDERED: PHYTONADIONE 5 MG TABLET PO ONE (11:30)
[2016-04-03] MEDS ORDERED: PANTOPRAZOLE 40 MG TABLET. PO SCH (11:30)
[2016-04-03 15:28] VITALS: BP 121/62
--- NOTE | 2016-04-03 17:52 | PDOC ---
OBJECTIVE Vital Signs Vital Signs Date Time Temp Pulse Resp B/P Pulse Ox O2 Delivery O2 Flow Rate FiO2 04/03/16 15:28 98.1 64 18 121/62 98 Room Air 98.1 04/03/16 11:00 98.0 64 19 110/61 96 Room Air 98.0 04/03/16 07:00 97.9 62 18 96/55 96 Room Air 97.9 04/03/16 02:57 98.2 66 18 102/59 94 Room Air 98.2 04/02/16 23:00 98.1 65 18 124/69 95 Room Air 98.1 04/02/16 21:45 98.1 65 18 124/69 95 Room Air 98.1 04/02/16 21:00 61 18 122/62 97 I & O Intake and Output 04/03/16 07:00 Intake Total 200 ml Output Total 0 ml Balance 200 ml Intake Oral 200 ml Output Urine Total 0 ml ASSESSMENT/PLAN Assessment/Plan [id number] H&P dictated Problems: COMMENT Lab Laboratory Tests Test 04/02/16 18:20 04/03/16 05:00 04/03/16 09:30 White Blood Count 6.7x10^3/uL (4.0-11.0) 7.2x10^3/uL (4.0-11.0) Red Blood Count 2.83x10^6/uL (3.50-5.40) 2.78x10^6/uL (3.50-5.40) Hemoglobin 9.9g/dL (12.0-15.5) 9.8g/dL (12.0-15.5) Hematocrit 28.1% (36.0-47.0) 28.3% (36.0-47.0) Mean Corpuscular Volume 99fL (79-100) 102fL (79-100) Mean Corpuscular Hemoglobin 35pg (25-35) 35pg (25-35) Mean Corpuscular Hemoglobin Concent 35g/dL (31-37) 35g/dL (31-37) Red Cell Distribution Width 19.0% (11.5-14.5) 18.5% (11.5-14.5) Platelet Count 63x10^3/uL (140-400) 58x10^3/uL (140-400) Neutrophils (%) (Auto) 66% (31-73) 61% (31-73) Lymphocytes (%) (Auto) 21% (24-48) 22% (24-48) Monocytes (%) (Auto) 11% (0-9) 13% (0-9) Eosinophils (%) (Auto) 2% (0-3) 4% (0-3) Basophils (%) (Auto) 1% (0-3) 1% (0-3) Neutrophils # (Auto) 4.4x10^3uL (1.8-7.7) 4.4x10^3uL (1.8-7.7) Lymphocytes # (Auto) 1.4x10^3/uL (1.0-4.8) 1.6x10^3/uL (1.0-4.8) Monocytes # (Auto) 0.7x10^3/uL (0.0-1.1) 0.9x10^3/uL (0.0-1.1) Eosinophils # (Auto) 0.1x10^3/uL (0.0-0.7) 0.3x10^3/uL (0.0-0.7) Basophils # (Auto) 0.1x10^3/uL (0.0-0.2) 0.1x10^3/uL (0.0-0.2) Sodium Level 136mmol/L (136-145) Potassium Level 4.4mmol/L (3.5-5.1) Chloride Level 100mmol/L (98-107) Carbon Dioxide Level 21mmol/L (21-32) Anion Gap 15 (6-14) Blood Urea Nitrogen 13mg/dL (7-20) Creatinine 0.8mg/dL (0.6-1.0) Estimated GFR (Cockcroft-Gault) 70.5 Glucose Level 62mg/dL (70-99) Calcium Level 8.7mg/dL (8.5-10.1) Ammonia 40mcmol/L (11-34) JENSEN OSBORN MD Apr 03, 2016 17:52
[2016-04-03 19:02] LABS: % SAT IRON 46 % (15-34); IRON,SERUM 196 ug/dL (50-170)
--- NOTE | 2016-04-03 19:33 | PREOP HP ---
DATE OF SERVICE: HISTORY OF PRESENT ILLNESS: The patient is a 71-year-old lady who presented to the Emergency Room complaining of fatigue and generalized weakness. She also was having decrease in her appetite, nausea, mild vomiting and had diarrhea starting the morning of her presentation. She reported numbness in her fingers and pain in her thighs, feeling weak and fatigued and not feeling good in general. She is known to have history of alcoholic liver cirrhosis. She does state that she has been sober since December, which is a couple of months ago. She had an EGD in December 2015 showed Billroth II anatomy, a normal esophagus and nonerosive gastritis. She stated that she has been taking her medications regularly and denies drinking alcohol over the holidays. She denies hematemesis, hematochezia, or melena. She does live alone. PAST MEDICAL HISTORY: Significant for COPD, hypertension, hyperlipidemia, previous history of pancreatitis, Billroth II surgery, history of appendectomy, cholecystectomy, osteoarthritis, alcoholic liver cirrhosis, and borderline diabetes. FAMILY HISTORY: Positive for hypertension and coronary artery disease. SOCIAL HISTORY: She does smoke, but she smoked moderately less than a pack per day. Alcohol, she used to be a heavy alcoholic, but has been sober since 01/19/2016. Denies use of drugs. REVIEW OF SYSTEMS: GENERAL: Denies fever, chills, or sweats. Denies weight loss except that she has lost about 5 pounds over the last month or so due to decreased appetite. HEENT: Denies blurry vision, sore throat. CARDIOVASCULAR: Denies chest pain. RESPIRATORY: Denies shortness of breath. GASTROINTESTINAL: See HPI. GENITOURINARY: Denies hematuria or dysuria. NEUROLOGY: She does report anxiety. Denies focal weakness or headache. MUSCULOSKELETAL: She does have general weakness. SKIN: Denies jaundice, pruritus or rashes. PHYSICAL EXAMINATION: GENERAL: She is alert at the time I saw her, oriented and cooperative. HEENT: Her tympanic membranes clear. Pharynx clear. Mucous membranes clear. NECK: Supple. LUNGS: Fairly clear to auscultation. HEART: Regular rate and rhythm. ABDOMEN: Soft, nontender. No organomegaly, no masses, no bruits, no ascites. EXTREMITIES: No edema, clubbing, or cyanosis. IMPRESSION: 1. Generalized weakness. 2. Alcoholic cirrhosis. 3. Anorexia. 4. Vomiting and diarrhea, improved. 5. Elevated LFTs due to cirrhosis. 6. History of Billroth II, last EGD is December 2015. 7. Gastroesophageal reflux disease, on PPI. JENSEN OSBORN MD DR: JESS/egrda JOB#: [id number] / [id number]
[2016-04-03 19:57] VITALS: BP 126/69
[2016-04-03] MEDS: MAGNESIUM OXIDE 400 MG TABLET PO SCH (21:47)
[2016-04-03 23:30] VITALS: BP 99/56
[2016-04-04 02:33] VITALS: BP 134/75
[2016-04-04] MEDS: PANTOPRAZOLE 40 MG TABLET. PO SCH (06:41)
[2016-04-04 07:00] VITALS: BP 128/71
[2016-04-04] MEDS: SPIRONOLACTONE 25 MG TABLET PO SCH (08:29)
[2016-04-04] MEDS: MAGNESIUM OXIDE 400 MG TABLET PO SCH (08:29)
[2016-04-04] MEDS: NEOMYCIN SULFATE 500 MG TABLET PO SCH (08:29)
--- NOTE | 2016-04-04 09:36 | PDOC ---
G I PROGRESS NOTE Subjective Asleep. Did not awaken. Physical Exam No PE. Review of Relevant I have reviewed the following items amy (where applicable) has been applied. Labs Laboratory Tests Test 04/02/16 16:50 04/02/16 17:25 04/02/16 18:20 04/03/16 05:00 Urine Collection Type Unknown Urine Color Irma Urine Clarity Cloudy Urine pH 7.5 Urine Specific [place] 1.015 Urine Protein Negativemg/dL (NEG-TRACE) Urine Glucose (UA) Negativemg/dL (NEG) Urine Ketones (Stick) Negativemg/dL (NEG) Urine Blood Negative (NEG) Urine Nitrite Negative (NEG) Urine Bilirubin Negative (NEG) Urine Urobilinogen Dipstick 0.2mg/dL (0.2 mg/dL) Urine Leukocyte Esterase Negative (NEG) Urine RBC 0/HPF (0-2) Urine WBC 0/HPF (0-4) Urine Squamous Epithelial Cells Few/LPF Urine Renal Epithelial Cells Occ/LPF Urine Bacteria 0/HPF (0-FEW) Urine Hyaline Casts Many/HPF Urine Granular Casts Few/HPF Urine Mucus Mod/LPF Prothrombin Time 17.0SEC (11.7-14.0) Prothromb Time International Ratio 1.5 (0.8-1.1) Activated Partial Thromboplast Time 48SEC (24-38) Sodium Level 134mmol/L (136-145) 136mmol/L (136-145) Potassium Level 5.2mmol/L (3.5-5.1) 4.4mmol/L (3.5-5.1) Chloride Level 100mmol/L (98-107) 100mmol/L (98-107) Carbon Dioxide Level 21mmol/L (21-32) 21mmol/L (21-32) Anion Gap 13 (6-14) 15 (6-14) Blood Urea Nitrogen 11mg/dL (7-20) 13mg/dL (7-20) Creatinine 0.8mg/dL (0.6-1.0) 0.8mg/dL (0.6-1.0) Estimated GFR (Cockcroft-Gault) 70.5 70.5 Glucose Level 102mg/dL (70-99) 62mg/dL (70-99) Calcium Level 9.1mg/dL (8.5-10.1) 8.7mg/dL (8.5-10.1) Total Bilirubin 2.2mg/dL (0.2-1.0) Direct Bilirubin 0.8mg/dL (0.0-0.2) Aspartate Amino Transf (AST/SGOT) 170U/L (15-37) Alanine Aminotransferase (ALT/SGPT) 35U/L (14-59) Alkaline Phosphatase 232U/L (46-116) Troponin I Quantitative < 0.017ng/mL (0.000-0.055) CX-Ald-T-Type Natriuretic Peptide 298pg/mL (0-124) Total Protein 8.1g/dL (6.4-8.2) Albumin 2.4g/dL (3.4-5.0) Lipase 76U/L (73-393) White Blood Count 6.7x10^3/uL (4.0-11.0) 7.2x10^3/uL (4.0-11.0) Red Blood Count 2.83x10^6/uL (3.50-5.40) 2.78x10^6/uL (3.50-5.40) Hemoglobin 9.9g/dL (12.0-15.5) 9.8g/dL (12.0-15.5) Hematocrit 28.1% (36.0-47.0) 28.3% (36.0-47.0) Mean Corpuscular Volume 99fL (79-100) 102fL (79-100) Mean Corpuscular Hemoglobin 35pg (25-35) 35pg (25-35) Mean Corpuscular Hemoglobin Concent 35g/dL (31-37) 35g/dL (31-37) Red Cell Distribution Width 19.0% (11.5-14.5) 18.5% (11.5-14.5) Platelet Count 63x10^3/uL (140-400) 58x10^3/uL (140-400) Neutrophils (%) (Auto) 66% (31-73) 61% (31-73) Lymphocytes (%) (Auto) 21% (24-48) 22% (24-48) Monocytes (%) (Auto) 11% (0-9) 13% (0-9) Eosinophils (%) (Auto) 2% (0-3) 4% (0-3) Basophils (%) (Auto) 1% (0-3) 1% (0-3) Neutrophils # (Auto) 4.4x10^3uL (1.8-7.7) 4.4x10^3uL (1.8-7.7) Lymphocytes # (Auto) 1.4x10^3/uL (1.0-4.8) 1.6x10^3/uL (1.0-4.8) Monocytes # (Auto) 0.7x10^3/uL (0.0-1.1) 0.9x10^3/uL (0.0-1.1) Eosinophils # (Auto) 0.1x10^3/uL (0.0-0.7) 0.3x10^3/uL (0.0-0.7) Basophils # (Auto) 0.1x10^3/uL (0.0-0.2) 0.1x10^3/uL (0.0-0.2) Test 04/03/16 09:30 04/03/16 18:00 Ammonia 40mcmol/L (11-34) Iron Level 196ug/dL (50-170) Total Iron Binding Capacity 430ug/dL (250-450) Iron Saturation 46% (15-34) Laboratory Tests Test 04/03/16 18:00 Iron Level 196ug/dL (50-170) Total Iron Binding Capacity 430ug/dL (250-450) Iron Saturation 46% (15-34) Iron studies normal. Medications Current Medications Ondansetron HCl (Zofran) 4 mg PRN Q8HRS PRN IV NAUSEA/VOMITING; Start 04/02/16 at 19:15; Stop 04/03/16 at 19:14; Status DC Morphine Sulfate 2 mg PRN Q2HR PRN IV PAIN; Start 04/02/16 at 19:15; Stop at 19:14; Status DC Pantoprazole Sodium (Protonix) 40 mg DAILYAC PO Last administered on 04/04/16 06:41; Start 04/03/16 at 10:00 Magnesium Oxide (Magnesium Oxide) 400 mg BID PO Last administered on 1/7/17at 08:29; Start 04/03/16 at 21:00 Neomycin Sulfate (Neomycin Sulfate) 500 mg BID PO Last administered on 08:29; Start 04/03/16 at 11:30 Pantoprazole Sodium (Protonix) 40 mg DAILYAC PO ; Start 04/03/16 at 11:30; Status UNV Spironolactone (Aldactone) 50 mg DAILY PO Last administered on 04/04/16 08:29; Start 04/03/16 at 11:30 Phytonadione (Mephyton) 10 mg 1X ONCE PO Last administered on 04/03/16 11:17; Start 04/03/16 at 11:30; Stop 04/03/16 at 11:31; Status DC Active Scripts Active Pantoprazole Sodium 40 Mg Tablet.dr 40 Mg PO DAILYAC 30 Days Reported Neomycin Sulfate 500 Mg Tablet 1 Tab PO BID Spironolactone 50 Mg Tablet 1 Tab PO DAILY Mag-Oxide (Magnesium Oxide) 400 Mg Tablet 2 Tab PO BID Vitamin D3 (Cholecalciferol (Vitamin D3)) 400 Unit Tablet 400 Unit PO BID Fish Oil Conc 1,000 mg Softgel ([place]-3/Dha/Epa/Fish Oil) 1,000 Mg Capsule 3, 000 Mg PO DAILY Multiple Vitamin (Multivitamin With Minerals) 1 Each Tablet 1 Each PO Corzide 40-5 Tablet (Nadolol/Bendroflumethiazide) 1 Each Tablet 0.5 Tab PO DAILY Coenzyme Q10 (Ubidecarenone) 100 Mg Capsule 100 Mg PO DAILY Calcium (Calcium Carbonate) 600 Mg Tablet 600 Mg PO BID Vitals/I & O Vital Sign - Last 24 Hours 04/03/16 04/03/16 04/03/16 04/03/16 11:00 15:28 19:57 23:30 Temp 98.0 98.1 97.8 98.2 98.0 98.1 97.8 98.2 Pulse 64 64 60 67 Resp 19 18 16 16 B/P 110/61 121/62 126/69 99/56 Pulse Ox 96 98 98 94 O2 Delivery Room Air Room Air Room Air Room Air 04/04/16 02:33 Temp 98.0 98.0 Pulse 67 Resp 16 B/P 134/75 Pulse Ox 94 O2 Delivery Room Air Intake and Output 1/6/17 1/6/17 1/7/17 15:00 23:00 07:00 Intake Total 300 ml Output Total 1 ml Balance -1 ml 300 ml Problem List Problems Medical Problems: (1) Generalized weakness Status: Acute (2) Weakness generalized Status: Acute Assessment Cirrhosis, likely superimposed alcoholic hepatitis--may still be residual from before as takes some time to resolve. Plan of Care: Continue current Tx, Mgmt ISH PACKER MD Apr 04, 2016 09:36
[2016-04-04 11:00] VITALS: BP 107/68
--- NOTE | 2016-04-04 11:50 | PDOC ---
SUBJECTIVE Subjective feels ok , reports no problem , state feels stronger, RN reports diarrhea, stool sent for c. diff OBJECTIVE Vital Signs Vital Signs Date Time Temp Pulse Resp B/P Pulse Ox O2 Delivery O2 Flow Rate FiO2 04/04/16 08:15 Room Air 04/04/16 02:33 98.0 67 16 134/75 94 Room Air 98.0 04/03/16 23:30 98.2 67 16 99/56 94 Room Air 98.2 04/03/16 19:57 97.8 60 16 126/69 98 Room Air 97.8 04/03/16 15:28 98.1 64 18 121/62 98 Room Air 98.1 I & O Intake and Output 04/04/16 07:00 Intake Total 300 ml Output Total 1 ml Balance 299 ml Intake Oral 300 ml Urine/Stool Mix 1 ml # Voids 2 PHYSICAL EXAM Physical Exam lungs clear heart RRR abd soft ext no edema ASSESSMENT/PLAN Assessment/Plan feels better but diarrhea reprted by RN, if C.Diff neg plan to discharge home later today Problems: COMMENT Lab Laboratory Tests Test 04/03/16 18:00 Iron Level 196ug/dL (50-170) Total Iron Binding Capacity 430ug/dL (250-450) Iron Saturation 46% (15-34) JENSEN OSBORN MD Apr 04, 2016 11:49
--- NOTE | 2016-04-04 11:55 | PDOC3 ---
Discharge Summary* Date of Admission: Apr 02, 2016 Date of Discharge: Apr 04, 2016 Admitting Diagnosis Problems Medical Problems: (1) Generalized weakness Status: Acute (2) Weakness generalized Status: Acute Final Diagnosis 1. Generalized weakness. 2. Alcoholic cirrhosis. 3. Anorexia. 4. Vomiting and diarrhea, improved. 5. Elevated LFTs due to cirrhosis. 6. History of Billroth II, last EGD is December 2015. 7. Gastroesophageal reflux disease, on PPI. Problems Medical Problems: (1) Generalized weakness Status: Acute (2) Weakness generalized Status: Acute CONSULTS GI Dr. Wynne Brief Hospital Course Ms. Hernández is a 71 old [sex] who presented with [ ] Disposition/Orders: D/C to Home CONDITION AT DISCHARGE: Improved Diet: 2 gr sodium, Cardiac Scheduled Calcium Carbonate (Calcium) 600 MG PO BID (Reported) Cholecalciferol (Vitamin D3) (Vitamin D3) 400 UNIT PO BID (Reported) Magnesium Oxide (Mag-Oxide) 2 TAB PO BID (Reported) Nadolol/Bendroflumethiazide (Corzide 40-5 Tablet) 0.5 TAB PO DAILY (Reported) Neomycin Sulfate (Neomycin Sulfate) 1 TAB PO BID (Reported) [place]-3/Dha/Epa/Fish Oil (Fish Oil Conc 1,000 mg Softgel) 3,000 MG PO DAILY ( Reported) Pantoprazole Sodium (Pantoprazole Sodium) 40 MG PO DAILYAC Spironolactone (Spironolactone) 1 TAB PO DAILY (Reported) Ubidecarenone (Coenzyme Q10) 100 MG PO DAILY (Reported) Miscellaneous Medications Multivitamin With Minerals (Multiple Vitamin) 1 EACH PO (Reported) FOLLOW UP APPOINTMENT: [address] Richardson Time Spent Total time spent with patient [] minutes for coordination of care, counseling, and education. JENSEN OSBORN MD Apr 04, 2016 11:55
== END 2016-04-04 16:04 | disposition home or self-care (01) ==
LOC: ER 16:22 → 5 NORTH 19:19
PROVIDERS: ADMIT Family Medicine; ATTEND Family Medicine
DX: R53.1 Weakness (principal); K70.30 Alcoholic cirrhosis of liver without ascites; R63.0 Anorexia; R11.11 Vomiting without nausea; R19.7 Diarrhea, unspecified; K21.9 Gastro-esophageal reflux disease without esophagitis
CPT/HCPCS: 36415; 71010; 80048; 80076; 81001; 82140; 83540; 83550; 83690; 83880; 84484; 85027; 85610; 85730; 93005; 97116; 97162; 97166; 99285; G0378; G0379

== ENCOUNTER 2016-05-28 14:16 | Inpatient (IN) | payer MEDICARE, OTHER ==
[~2016-05-28] VITALS: Ht 152.4 cm; Wt 56.3 kg
[~2016-05-28 14:16] MED LIST changes: +MAGN400T22 PO; +NEOM500T PO; +SPIR50TA2 PO
--- NOTE | 2016-05-28 15:18 | EKG ---
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
[2016-05-28] MEDS ORDERED: IV NORMAL SALINE 1000ML BAG 1,000 ML IV ONE (15:45)
[2016-05-28 15:58] LABS: CALCIUM 9.6 mg/dL (8.5-10.1); CREATININE 4.3 mg/dL (0.6-1.0); GFR 10.1; POTASSIUM 4.1 mmol/L (3.5-5.1)
[2016-05-28 16:04] LABS: ALBUMIN 2.5 g/dL (3.4-5.0); ALBUMIN/GLOBULIN RATIO 0.4 (1.0-1.7); TOTAL BILIRUBIN 2.2 mg/dL (0.2-1.0); TOTAL PROTEIN 8.4 g/dL (6.4-8.2)
--- NOTE | 2016-05-28 16:05 | RAD ---
CT of the head without contrast, 05/28/2016: History: Altered mental status Comparison is made to a study from 01/19/2016. There is moderate cerebral atrophy. The ventricles are within normal limits in size. There is no shift of the midline structures. There is no evidence of acute intracranial hemorrhage or mass effect. IMPRESSION: No acute intracranial abnormality is detected. PQRS Compliance Statement: One or more of the following individualized dose reduction techniques were utilized for this examination: 1. Automated exposure control 2. Adjustment of the mA and/or kV according to patient size 3. Use of iterative reconstruction technique
--- NOTE | 2016-05-28 16:19 | RAD ---
Portable chest, 05/28/2016: History: Chest pain and weakness Comparison is made to a study from 04/02/2016. The heart size and pulmonary vascularity are normal. No pulmonary infiltrate is seen. There is no evidence of pleural fluid. There is a mild thoracic scoliosis with associated degenerative change. IMPRESSION: No acute cardiopulmonary abnormality is detected.
[2016-05-28 16:33] LABS: BASO # 0.1 x10^3/uL (0.0-0.2); BASO % 1 % (0-3); EOS % 1 % (0-3); HEMATOCRIT 27.5 % (36.0-47.0); HEMOGLOBIN 9.7 g/dL (12.0-15.5); LYMPH # 0.9 x10^3/uL (1.0-4.8); LYMPH % 13 % (24-48); MEAN CORPUSCULAR HEMOGLOBIN 37 pg (25-35); MEAN CORPUSCULAR HGB CONC 35 g/dL (31-37); MEAN CORPUSCULAR VOLUME 103 fL (79-100); MONO % 18 % (0-9); NEUT % 67 % (31-73); PLATELET COUNT 105 x10^3/uL (140-400); RED BLOOD COUNT 2.66 x10^6/uL (3.50-5.40)
[2016-05-28] MEDS ORDERED: IV NORMAL SALINE 1000ML BAG 1,000 ML IV SCH (17:07)
[2016-05-28] MEDS ORDERED: ONDANSETRON PF 4 MG/2 ML VIAL. IV PRN ×2 (17:15→19:00)
[2016-05-28 17:33] LABS: BILIRUBIN,URINE NEGATIVE (NEG); GLUCOSE,URINE NEGATIVE (NEG); NITRITE,URINE NEGATIVE (NEG); PROTEIN,URINE 30 mg/dL (NEG-TRACE); UROBILINOGEN,URINE 0.2 mg/dL (0.2 mg/dL)
[2016-05-28 17:42] LABS: BACTERIA,URINE 0 /HPF (0-FEW); SQUAMOUS EPITHELIAL CELL,UR OCC /LPF; WBC,URINE OCC /HPF (0-4)
--- NOTE | 2016-05-28 18:35 | PHYS DOC ---
Past Medical History Past Medical History: Alcoholism, Anxiety, COPD, GERD, High Cholesterol Additional Past Medical Histor: cirrhosis of liver Past Surgical History: Cholecystectomy, Other Additional Past Surgical Histo: ABD SURGERY, back surgery Alcohol Use: Heavy Additional Information: ems found cup of etoh next to pt. Drug Use: None Adult General Chief Complaint Chief Complaint: ALTERED MENTAL STATUS HPI HPI 71-year-old female who has known history of alcoholic cirrhosis as well as mild COPD who presents with acute altered mental status. Per daughter at bedside the patient lives alone and usually has a home health nurse that comes and that she was not making her appointments today for rehabilitation. She was not answering phone calls. When EMS arrived the patient was negative and acutely confused in her home. There are no obvious signs of trauma. Patient is able to answer my questions but appears confused on my exam. She can follow basic commands. The daughter at bedside states this is not her normal self. The patient is without any specific complaints. She denies any abdominal pain or chest pain. She denies any trouble breathing. The daughter stated her concern that the patient is abusing alcohol at home. Review of Systems Review of Systems Constitutional: Denies fever or chills [] Eyes: Denies change in visual acuity, redness, or eye pain [] HENT: Denies nasal congestion or sore throat [] Respiratory: Denies cough or shortness of breath [] Cardiovascular: No additional information not addressed in HPI [] GI: Denies abdominal pain, nausea, vomiting, bloody stools or diarrhea [] : Denies dysuria or hematuria [] Musculoskeletal: Denies back pain or joint pain [] Integument: Denies rash or skin lesions [] Neurologic: Denies headache, focal weakness or sensory changes [] Endocrine: Denies polyuria or polydipsia [] Current Medications Current Medications Current Medications Medications (Trade) Dose Ordered Sig/Sherri Start Time Stop Time Status Last Admin Dose Admin Sodium Chloride (Iv Sodium Chloride 0.9% 1000ml Bag) 1,000 ml @ 1,000 mls/hr 1X ONCE 05/28/16 15:45 05/28/16 16:44 DC 05/28/16 16:07 1,000 MLS/HR Allergies Allergies Allergies Coded Allergies Type Severity Reaction Last Updated Verified No Known Drug Allergies 03/13/13 No Physical Exam Physical Exam Constitutional: Well developed, well nourished, no acute distress, non-toxic appearance. [] HENT: Normocephalic, atraumatic, bilateral external ears normal, oropharynx moist, no oral exudates, nose normal. [] Eyes: PERRLA, EOMI, conjunctiva normal, no discharge. [] Neck: Normal range of motion, no tenderness, supple, no stridor. [] Cardiovascular:Heart rate regular rhythm, no murmur [] Lungs & Thorax: Bilateral breath sounds clear to auscultation [] Abdomen: Bowel sounds normal, soft, no tenderness, no masses, no pulsatile masses. [] Skin: Warm, dry, no erythema, no rash. [] Back: No tenderness, no CVA tenderness. [] Extremities: No tenderness, no cyanosis, no clubbing, ROM intact, no edema. [] Neurologic: Alert and oriented X 2, normal motor function, normal sensory function, no focal deficits noted. [] Psychologic: Affect normal, judgement normal, mood normal. [] Current Patient Data Vital Signs Vital Signs Date Time Temp Pulse Resp B/P Pulse Ox O2 Delivery O2 Flow Rate FiO2 05/28/16 16:00 78 144/77 Room Air 05/28/16 14:16 97.8 14 98 97.8 Lab Values Laboratory Tests Test 05/28/16 14:35 05/28/16 16:20 White Blood Count 7.0x10^3/uL (4.0-11.0) Red Blood Count 2.66x10^6/uL (3.50-5.40) L Hemoglobin 9.7g/dL (12.0-15.5) L Hematocrit 27.5% (36.0-47.0) L Mean Corpuscular Volume 103fL (79-100) H Mean Corpuscular Hemoglobin 37pg (25-35) H Mean Corpuscular Hemoglobin Concent 35g/dL (31-37) Red Cell Distribution Width 19.0% (11.5-14.5) H Platelet Count 105x10^3/uL (140-400) L Neutrophils (%) (Auto) 67% (31-73) Lymphocytes (%) (Auto) 13% (24-48) L Monocytes (%) (Auto) 18% (0-9) H Eosinophils (%) (Auto) 1% (0-3) Basophils (%) (Auto) 1% (0-3) Neutrophils # (Auto) 4.7x10^3uL (1.8-7.7) Lymphocytes # (Auto) 0.9x10^3/uL (1.0-4.8) L Monocytes # (Auto) 1.2x10^3/uL (0.0-1.1) H Eosinophils # (Auto) 0.1x10^3/uL (0.0-0.7) Basophils # (Auto) 0.1x10^3/uL (0.0-0.2) Sodium Level 144mmol/L (136-145) Potassium Level 4.1mmol/L (3.5-5.1) Chloride Level 106mmol/L (98-107) Carbon Dioxide Level 20mmol/L (21-32) L Anion Gap 18 (6-14) H Blood Urea Nitrogen 40mg/dL (7-20) H Creatinine 4.3mg/dL (0.6-1.0) H Estimated GFR (Cockcroft-Gault) 10.1 BUN/Creatinine Ratio 9 (6-20) Glucose Level 130mg/dL (70-99) H Calcium Level 9.6mg/dL (8.5-10.1) Total Bilirubin 2.2mg/dL (0.2-1.0) H Aspartate Amino Transferase (AST) 73U/L (15-37) H Alanine Aminotransferase (ALT) 20U/L (14-59) Alkaline Phosphatase 189U/L (46-116) H Troponin I Quantitative < 0.017ng/mL (0.000-0.055) Total Protein 8.4g/dL (6.4-8.2) H Albumin 2.5g/dL (3.4-5.0) L Albumin/Globulin Ratio 0.4 (1.0-1.7) L Ammonia 81mcmol/L (11-34) H Laboratory Tests 05/28/16 14:35 Laboratory Tests 05/28/16 14:35 EKG EKG EKG as internal by me demonstrates a sinus rhythm with a rate of 84 bpm. There is a leftward axis. QTc is slightly prolonged at 474 ms. I do not see any obvious ischemic findings. Radiology/Procedures Radiology/Procedures CT of her head did not reveal any acute intracranial process. One view of her chest did not demonstrate any acute abnormalities Course & Med Decision Making Course & Med Decision Making Pertinent Labs and Imaging studies reviewed. (See chart for details) 71-year-old female who has likely a metabolic acidosis as well as mild hepatic encephalopathy secondary to an elevated ammonia likely due to her ongoing alcoholic cirrhosis. CT of her head was negative. A urinalysis was unable to be obtained while the department. There does not appear to be any focal infection at this time. I discussed the need to admit the patient with the hospitalist, Dr. Huddleston, who agreed to admit with GI consult. EKG and chest x-ray were unremarkable. She was admitted without incident. Dragon Disclaimer Dragon Disclaimer This electronic medical record was generated, in whole or in part, using a voice recognition dictation system. Departure Departure Impression: Primary Impression: Altered mental status Additional Impression: Hyperammonemia Disposition: ADMITTED INPATIENT Admitting Physician: Christiano Huddleston Condition: STABLE Referrals: JEMIMA EMERY MD (PCP) Problem Qualifiers DANELLE BERRY DO May 28, 2016 18:35
--- NOTE | 2016-05-28 18:43 | PDOC1 ---
History and Physical Past Medical History Cardiovascular: HTN, Hyperlipidemia Past Surgical History Past Surgical History: Appendectomy, Cholecystectomy Family History Family History: Other Social History ALCOHOL: heavy Drugs: None Current Problem List Problem List Problems Medical Problems: (1) Altered mental status Status: Acute (2) Hyperammonemia Status: Acute Current Medications Current Medications Current Medications Medications (Trade) Dose Ordered Sig/Sherri Start Time Stop Time Status Last Admin Dose Admin Lactulose 20 gm 20 gm PRN BID PRN 05/28/16 18:45 Ondansetron HCl (Zofran) 4 mg PRN Q8HRS PRN 05/28/16 17:15 05/29/16 17:14 Sodium Chloride (Iv Sodium Chloride 0.9% 1000ml Bag) 1,000 ml @ 75 mls/hr [id number] 05/28/16 19:00 Allergies Allergies Allergies Coded Allergies Type Severity Reaction Last Updated Verified No Known Drug Allergies 03/13/13 No ROS Review of System CONFUSED, NOT ABLE TO GET HX, DAUGHTER AT BEDSIDE PROVIDED HX. Physical Exam Physical Exam GEN.: confused, HEENT: Head is normocephalic, atraumatic NECK: Supple. No JVD LUNGS: Decreased bilateral BS HEART: RRR, S1, S2 present. Peripheral pulses intact ABDOMEN: Soft, nontender. Positive bowel sounds. mild distention EXTREMITIES: Without any cyanosis. NEUROLOGIC: Normal speech, per daughter PSYCHIATRIC: confused. SKIN: dry Vitals Vitals Vital Signs Date Time Temp Pulse Resp B/P Pulse Ox O2 Delivery O2 Flow Rate FiO2 05/28/16 14:16 97.8 84 14 148/62 98 Room Air 97.8 Labs Labs Laboratory Tests Test 05/28/16 14:35 05/28/16 16:20 05/28/16 17:20 White Blood Count 7.0x10^3/uL (4.0-11.0) Red Blood Count 2.66x10^6/uL (3.50-5.40) Hemoglobin 9.7g/dL (12.0-15.5) Hematocrit 27.5% (36.0-47.0) Mean Corpuscular Volume 103fL (79-100) Mean Corpuscular Hemoglobin 37pg (25-35) Mean Corpuscular Hemoglobin Concent 35g/dL (31-37) Red Cell Distribution Width 19.0% (11.5-14.5) Platelet Count 105x10^3/uL (140-400) Neutrophils (%) (Auto) 67% (31-73) Lymphocytes (%) (Auto) 13% (24-48) Monocytes (%) (Auto) 18% (0-9) Eosinophils (%) (Auto) 1% (0-3) Basophils (%) (Auto) 1% (0-3) Neutrophils # (Auto) 4.7x10^3uL (1.8-7.7) Lymphocytes # (Auto) 0.9x10^3/uL (1.0-4.8) Monocytes # (Auto) 1.2x10^3/uL (0.0-1.1) Eosinophils # (Auto) 0.1x10^3/uL (0.0-0.7) Basophils # (Auto) 0.1x10^3/uL (0.0-0.2) Sodium Level 144mmol/L (136-145) Potassium Level 4.1mmol/L (3.5-5.1) Chloride Level 106mmol/L (98-107) Carbon Dioxide Level 20mmol/L (21-32) Anion Gap 18 (6-14) Blood Urea Nitrogen 40mg/dL (7-20) Creatinine 4.3mg/dL (0.6-1.0) Estimated GFR (Cockcroft-Gault) 10.1 BUN/Creatinine Ratio 9 (6-20) Glucose Level 130mg/dL (70-99) Calcium Level 9.6mg/dL (8.5-10.1) Total Bilirubin 2.2mg/dL (0.2-1.0) Aspartate Amino Transf (AST/SGOT) 73U/L (15-37) Alanine Aminotransferase (ALT/SGPT) 20U/L (14-59) Alkaline Phosphatase 189U/L (46-116) Troponin I Quantitative < 0.017ng/mL (0.000-0.055) Total Protein 8.4g/dL (6.4-8.2) Albumin 2.5g/dL (3.4-5.0) Albumin/Globulin Ratio 0.4 (1.0-1.7) Ammonia 81mcmol/L (11-34) Urine Collection Type U cath Urine Color Yellow Urine Clarity Clear Urine pH 6.0 Urine Specific [place] 1.015 Urine Protein 30mg/dL (NEG-TRACE) Urine Glucose (UA) Negativemg/dL (NEG) Urine Ketones (Stick) Negativemg/dL (NEG) Urine Blood Small (NEG) Urine Nitrite Negative (NEG) Urine Bilirubin Negative (NEG) Urine Urobilinogen Dipstick 0.2mg/dL (0.2 mg/dL) Urine Leukocyte Esterase Negative (NEG) Urine RBC 3-5/HPF (0-2) Urine WBC Occ/HPF (0-4) Urine Squamous Epithelial Cells Occ/LPF Urine Amorphous Sediment Present/HPF Urine Bacteria 0/HPF (0-FEW) Urine Granular Casts Few/HPF Laboratory Tests Test 05/28/16 14:35 05/28/16 16:20 05/28/16 17:20 White Blood Count 7.0x10^3/uL (4.0-11.0) Red Blood Count 2.66x10^6/uL (3.50-5.40) Hemoglobin 9.7g/dL (12.0-15.5) Hematocrit 27.5% (36.0-47.0) Mean Corpuscular Volume 103fL (79-100) Mean Corpuscular Hemoglobin 37pg (25-35) Mean Corpuscular Hemoglobin Concent 35g/dL (31-37) Red Cell Distribution Width 19.0% (11.5-14.5) Platelet Count 105x10^3/uL (140-400) Neutrophils (%) (Auto) 67% (31-73) Lymphocytes (%) (Auto) 13% (24-48) Monocytes (%) (Auto) 18% (0-9) Eosinophils (%) (Auto) 1% (0-3) Basophils (%) (Auto) 1% (0-3) Neutrophils # (Auto) 4.7x10^3uL (1.8-7.7) Lymphocytes # (Auto) 0.9x10^3/uL (1.0-4.8) Monocytes # (Auto) 1.2x10^3/uL (0.0-1.1) Eosinophils # (Auto) 0.1x10^3/uL (0.0-0.7) Basophils # (Auto) 0.1x10^3/uL (0.0-0.2) Sodium Level 144mmol/L (136-145) Potassium Level 4.1mmol/L (3.5-5.1) Chloride Level 106mmol/L (98-107) Carbon Dioxide Level 20mmol/L (21-32) Anion Gap 18 (6-14) Blood Urea Nitrogen 40mg/dL (7-20) Creatinine 4.3mg/dL (0.6-1.0) Estimated GFR (Cockcroft-Gault) 10.1 BUN/Creatinine Ratio 9 (6-20) Glucose Level 130mg/dL (70-99) Calcium Level 9.6mg/dL (8.5-10.1) Total Bilirubin 2.2mg/dL (0.2-1.0) Aspartate Amino Transf (AST/SGOT) 73U/L (15-37) Alanine Aminotransferase (ALT/SGPT) 20U/L (14-59) Alkaline Phosphatase 189U/L (46-116) Troponin I Quantitative < 0.017ng/mL (0.000-0.055) Total Protein 8.4g/dL (6.4-8.2) Albumin 2.5g/dL (3.4-5.0) Albumin/Globulin Ratio 0.4 (1.0-1.7) Ammonia 81mcmol/L (11-34) Urine Collection Type U cath Urine Color Yellow Urine Clarity Clear Urine pH 6.0 Urine Specific [place] 1.015 Urine Protein 30mg/dL (NEG-TRACE) Urine Glucose (UA) Negativemg/dL (NEG) Urine Ketones (Stick) Negativemg/dL (NEG) Urine Blood Small (NEG) Urine Nitrite Negative (NEG) Urine Bilirubin Negative (NEG) Urine Urobilinogen Dipstick 0.2mg/dL (0.2 mg/dL) Urine Leukocyte Esterase Negative (NEG) Urine RBC 3-5/HPF (0-2) Urine WBC Occ/HPF (0-4) Urine Squamous Epithelial Cells Occ/LPF Urine Amorphous Sediment Present/HPF Urine Bacteria 0/HPF (0-FEW) Urine Granular Casts Few/HPF VTE Prophylaxis Ordered VTE Prophylaxis Devices: Contraindicated VTE Pharmacological Prophylaxi: Contraindicated KATY CARREON MD May 28, 2016 18:43
[2016-05-28] MEDS ORDERED: LACTULOSE 20 GM/30 ML SOLUTION. PO PRN (18:45)
[2016-05-28] MEDS ORDERED: ALBUTEROL SULFATE 2.5 MG/3 ML NEBU. NEB PRN (19:00)
[2016-05-28] MEDS ORDERED: hydrALAZINE 20 MG/ML VIAL. IVP PRN (19:00)
[2016-05-28] MEDS: IV NORMAL SALINE 1000ML BAG 1,000 ML IV SCH (19:48)
[2016-05-28] MEDS: HYDROCODONE/APAP 5/325MG TABLET. PO PRN (19:50)
[2016-05-28 19:59] VITALS: BP 138/76
[2016-05-28 21:05] LABS: INR 1.6 (0.8-1.1)
--- NOTE | 2016-05-28 22:10 | ACF ---
Admission Forms Criteria MENTAL STATUS CHANGE Clinical Indications for Inpatient Care (Place 'X' for any and all applicable criteria): Ongoing inpatient care may be needed for ANY ONE of the following(1)(2)(3)(5)(6) : [X]I. Suspected serious etiology (eg, medical disorder, HEALTH SCIENCES MANAGER event) of mental status change [ ]II. Danger to self or others not manageable at lower level of care [ ]III. Grave disability (eg, inability to perform self care necessary at lower level of care) [ ]IV. Agitation or inappropriate behavior interfering with care for primary condition (eg, attempting to discontinue lines or drains prematurely, unable to cooperate with respiratory care) [ ]V. Delirium [A] [D][E] as described by ANY ONE of the following(26): [ ]a) Delirium due to alcohol or sedative [F] withdrawal [ ]b) Delirium of uncertain etiology that has not responded to appropriate empiric treatment [ ]c) Delirium that prevents performance of a life-sustaining function (eg, feeding or hydrating oneself) [ ]. General contraindications and/or Inappropriate clinical situations for Observational Care in patients with Mental Status Change, when ANY ONE of the following is required: [ ]a) Prediction of prolongation of LOS based on ANY ONE of the following may be considered as a contraindication for observational care 2, 3, 4, 5, 6, 7, 8, 9, 10, 11 [ ]i) Age > 65 yrs. [ ]ii) Patient arriving by ambulance [ ]iii) Patient with high acuity [ ]iv) Patient requiring vital sign monitoring [ ]v) Patient on IV medication [ ]b) Systolic blood pressures 180mmHg 3,12 [ ]c) Patient with altered mental status including delirium and other alteration of consciousness, (3) [ ]d) Patient whose discharge disposition will be to a snf home or rehabilitation home should not be managed in Emergency Department Observation Unit. CMS rule requires 3 days hospital stay before such placement.3,13 [ ]e) Patient with failure to thrive due to broad array of etiologies 3,16,17 [ ]f) Inability to ambulate 3,14 Extended stay beyond goal length of stay for the primary condition may be needed until ALL of the following are present(3)(5): [ ]a) Underlying medical etiology of mental status change is absent, or has been established and adequately treated [ ]b) Danger to self or others is absent or manageable at lower level of care. [ ]c) Behavior crisis management, including physical or chemical restraints, is not required or available at lower level of car [ ]d) Substance or alcohol withdrawal is absent or manageable at lower level of care. [ ]e) Behavioral symptoms (eg, agitation, somnolence, inappropriate behavior) are absent, or are manageable at lower level of care. The [facility] content created by [facility] has been revised. The portions of the content which have been revised are identified through the use of italic text or in bold, and [facility] has neither reviewed nor approved the modified material. All other unmodified content is copyright [facility]. Please see references footnoted in the original [facility] edition 2016 Admission Criteria Met?: Yes PA MOY May 28, 2016 22:10
[2016-05-28 23:05] VITALS: BP 113/67
[2016-05-29 03:21] VITALS: BP 120/75
--- NOTE | 2016-05-29 05:05 | HP ---
ADMIT DATE: 05/28/2016 CHIEF COMPLAINT: Altered mental status. HISTORY OF PRESENT ILLNESS: A 71-year-old female patient with history of COPD and cirrhosis, alcoholic, brought to the ER with altered mental status. Most of the history obtained from the notes and daughter at bedside. Reportedly, the patient was found to be naked and without any cloths, confused, which is not her baseline and as per the EMS report, they found some alcohol next to her. She had history of alcoholic hepatic encephalopathy and at the time of admission, her ammonia levels were elevated to 81. As per the daughter, she was looking okay 2 days ago; however, at this time, she is completely confused, able to answer questions, but which are not appropriate. Daughter denies any fever, chills or trauma. She lives independently, but her labs showed severe dehydration and encephalopathy. PAST MEDICAL HISTORY: COPD, alcoholic hepatic encephalopathy, hypertension, hyperlipidemia, pancreatitis, appendectomy, cholecystectomy. FAMILY HISTORY: Possible hypertension. PERSONAL HISTORY: Nicotine use present and heavy alcoholic, diagnosed with hepatic encephalopathy. ALLERGIES: NKDA. REVIEW OF SYSTEMS: Please see my electronic H and P. PHYSICAL EXAMINATION: Please see my electronic H and P. LABORATORY DATA: WBC 7000, hemoglobin 9.7, MCV is 103 and platelets 105. Chemistry: Sodium is 144, potassium is 4.1, chloride is 106, anion gap is 18, carbon dioxide is 20. Creatinine is 4.3, GFR is 10.1, total bilirubin is 2.2. Ammonia is 81. Urine specific gravity 1.015, glucose is negative, ketones negative, nitrites negative, bilirubin negative. IMAGING STUDIES: Chest x-ray: No acute cardiopulmonary process seen. Head CT: No acute intracranial process seen. ASSESSMENT AND PLAN: 1. Encephalopathy, possible metabolic, hepatic. 2. Acute kidney injury. 3. Metabolic acidosis. 4. Thrombocytopenia. 5. Anemia, chronic. 6. Hyperbilirubinemia. 7. Alcoholism. PLAN: 1. The patient has been admitted to the step-down unit. I will administer lactulose p.r.n. Monitor her ammonia. 2. We will consult Gastroenterology. 3. Continue IV hydration at least 125 mL per hour and I will repeat ABGs. 4. Her baseline creatinine is less than 1. 5. One-to-one sitter as patient is confused and moving all around the bed. 6. Home medications. I will review and reconcile. 7. Overall prognosis guarded. 8. Plan explained to the patient's daughter at bedside. Monitor her platelets. KATY CARREON MD DR: NASREEN/gerda JOB#: [id number] / [id number]
[2016-05-29 05:55] LABS: CALCIUM 8.9 mg/dL (8.5-10.1); CREATININE 4.2 mg/dL (0.6-1.0); GFR 10.4; POTASSIUM 3.9 mmol/L (3.5-5.1)
[2016-05-29 07:17] VITALS: BP 117/65
[2016-05-29 09:18] LABS: BASO # 0.1 x10^3/uL (0.0-0.2); BASO % 2 % (0-3); EOS % 2 % (0-3); HEMATOCRIT 22.5 % (36.0-47.0); HEMOGLOBIN 7.8 g/dL (12.0-15.5); LYMPH % 15 % (24-48); MEAN CORPUSCULAR HEMOGLOBIN 35 pg (25-35); MEAN CORPUSCULAR HGB CONC 35 g/dL (31-37); MEAN CORPUSCULAR VOLUME 101 fL (79-100); MONO % 20 % (0-9); NEUT % 61 % (31-73); PLATELET COUNT 81 x10^3/uL (140-400); RED BLOOD COUNT 2.23 x10^6/uL (3.50-5.40); RED CELL DISTRIBUTION WIDTH 19.2 % (11.5-14.5); WHITE BLOOD COUNT 6.6 x10^3/uL (4.0-11.0)
--- NOTE | 2016-05-29 09:22 | PDOC2 ---
GI CONSULT Reason For Consult: Hyperammonemia HPI: HPI: 71 y/o female known to GI w/ significant history for alcoholic cirrhosis and Billroth II surgery. Recent workup: EGD for ?GI bleed in 12/2015 showed Billroth II anatomy, normal esophagus, and nonerosive gastritis. CT in 01/2016 showed nodular liver c/w cirrhosis. On pantoprazole and spironolactone at home. Evaluated in ER for AMS, pt says she's been feeling weak. No specific GI complaints although not much of an appetite (which is not new for her). Perhaps had some vomiting last week. Denies bleeding, abd pain, nausea, diarrhea, constipation. GI consult on this occasion for elevated ammonia (81). Additional labs: Hgb 9.7 (stable from last admission in 03/2016), plt 105, INR 1.6, bili 2.2, Alk Phos 189. Also note BUN 41, Cr 4.2. In 03/2015, iron and TIBC were elevated. PMH: PMH: alcoholic cirrhosis, HTN, HLD, COPD, pancreatitis, GERD, cholecystectomy, appendectomy, back surgery, Billroth II FH: Family History: No pertinent hx Social History: ALCOHOL: other (previous heavy use, sober since late 2015) Drugs: None ROS: GEN: Denies fevers, chills, sweats HEENT: Denies blurred vision, sore throat CV: Denies chest pain RESP: Denies shortness of air, cough GI: Per HPI : Denies hematuria, dysuria ENDO: Denies weight changes NEURO: +confusion MSK: +weakness SKIN: Denies jaundice, pruritus VItals: Vitals: Vital Signs Date Time Temp Pulse Resp B/P Pulse Ox O2 Delivery O2 Flow Rate FiO2 05/29/16 07:40 Room Air 05/29/16 07:17 97.6 79 18 117/65 94 97.6 Labs: Labs: Laboratory Tests Test 05/28/16 14:35 05/28/16 16:20 05/28/16 17:20 05/28/16 20:40 White Blood Count 7.0x10^3/uL (4.0-11.0) Red Blood Count 2.66x10^6/uL (3.50-5.40) Hemoglobin 9.7g/dL (12.0-15.5) Hematocrit 27.5% (36.0-47.0) Mean Corpuscular Volume 103fL (79-100) Mean Corpuscular Hemoglobin 37pg (25-35) Mean Corpuscular Hemoglobin Concent 35g/dL (31-37) Red Cell Distribution Width 19.0% (11.5-14.5) Platelet Count 105x10^3/uL (140-400) Neutrophils (%) (Auto) 67% (31-73) Lymphocytes (%) (Auto) 13% (24-48) Monocytes (%) (Auto) 18% (0-9) Eosinophils (%) (Auto) 1% (0-3) Basophils (%) (Auto) 1% (0-3) Neutrophils # (Auto) 4.7x10^3uL (1.8-7.7) Lymphocytes # (Auto) 0.9x10^3/uL (1.0-4.8) Monocytes # (Auto) 1.2x10^3/uL (0.0-1.1) Eosinophils # (Auto) 0.1x10^3/uL (0.0-0.7) Basophils # (Auto) 0.1x10^3/uL (0.0-0.2) Sodium Level 144mmol/L (136-145) Potassium Level 4.1mmol/L (3.5-5.1) Chloride Level 106mmol/L (98-107) Carbon Dioxide Level 20mmol/L (21-32) Anion Gap 18 (6-14) Blood Urea Nitrogen 40mg/dL (7-20) Creatinine 4.3mg/dL (0.6-1.0) Estimated GFR (Cockcroft-Gault) 10.1 BUN/Creatinine Ratio 9 (6-20) Glucose Level 130mg/dL (70-99) Calcium Level 9.6mg/dL (8.5-10.1) Total Bilirubin 2.2mg/dL (0.2-1.0) Aspartate Amino Transf (AST/SGOT) 73U/L (15-37) Alanine Aminotransferase (ALT/SGPT) 20U/L (14-59) Alkaline Phosphatase 189U/L (46-116) Troponin I Quantitative < 0.017ng/mL (0.000-0.055) Total Protein 8.4g/dL (6.4-8.2) Albumin 2.5g/dL (3.4-5.0) Albumin/Globulin Ratio 0.4 (1.0-1.7) Ammonia 81mcmol/L (11-34) Urine Collection Type U cath Urine Color Yellow Urine Clarity Clear Urine pH 6.0 Urine Specific [place] 1.015 Urine Protein 30mg/dL (NEG-TRACE) Urine Glucose (UA) Negativemg/dL (NEG) Urine Ketones (Stick) Negativemg/dL (NEG) Urine Blood Small (NEG) Urine Nitrite Negative (NEG) Urine Bilirubin Negative (NEG) Urine Urobilinogen Dipstick 0.2mg/dL (0.2 mg/dL) Urine Leukocyte Esterase Negative (NEG) Urine RBC 3-5/HPF (0-2) Urine WBC Occ/HPF (0-4) Urine Squamous Epithelial Cells Occ/LPF Urine Amorphous Sediment Present/HPF Urine Bacteria 0/HPF (0-FEW) Urine Granular Casts Few/HPF Prothrombin Time 18.0SEC (11.7-14.0) Prothromb Time International Ratio 1.6 (0.8-1.1) Test 05/29/16 02:30 Sodium Level 147mmol/L (136-145) Potassium Level 3.9mmol/L (3.5-5.1) Chloride Level 112mmol/L (98-107) Carbon Dioxide Level 18mmol/L (21-32) Anion Gap 17 (6-14) Blood Urea Nitrogen 41mg/dL (7-20) Creatinine 4.2mg/dL (0.6-1.0) Estimated GFR (Cockcroft-Gault) 10.4 Glucose Level 88mg/dL (70-99) Calcium Level 8.9mg/dL (8.5-10.1) Allergies: Coded Allergies: No Known Drug Allergies (Unverified , 03/13/13) Medications: Current Medications Medications (Trade) Dose Ordered Sig/Sherri Route PRN Reason Start Time Stop Time Status Last Admin Dose Admin Sodium Chloride 1,000 ml @ 1,000 mls/hr 1X ONCE IV 05/28/16 15:45 05/28/16 16:44 DC 05/28/16 16:07 Sodium Chloride (Iv Sodium Chloride 0.9% 1000ml Bag) 1,000 ml @ 75 mls/hr [id number] IV 05/28/16 19:00 05/28/16 19:48 Acetaminophen/ Hydrocodone Bitart (Lortab 5/325) 1 tab PRN Q6HRS PRN PO MODERATE TO SEVERE PAIN 05/28/16 19:00 05/28/16 19:50 Imaging: Imaging: CXR 05/28/16 IMPRESSION: No acute cardiopulmonary abnormality is detected. CT Head 05/28/16 IMPRESSION: No acute intracranial abnormality is detected. PE: GEN: NAD HEENT: Atraumatic, PERRL LUNGS: clear anteriorly HEART: S1S2 ABD: NABS, S/ND/NT EXTREMITY: No edema SKIN: No rashes, no jaundice NEURO/PSYCH: able to tell me her birthday, where she is, and the month - cannot recall the year or who's president A/P: A/P: Alcoholic cirrhosis, hyperammonemia, confusion -says sober since 01/19/16, CT in 01/2016 showed nodular liver (cirrhosis) -on spironolactone at home Anorexia - ongoing H/o Billroth II, GERD -last EGD 12/2015, on PPI at home Elevated Cr -- Note lactulose ordered but not given as listed PRN. Will start BID scheduled and also add PPI for her GERD. ?renal consult IVY BETH May 29, 2016 09:22
[2016-05-29] MEDS: IV NORMAL SALINE 1000ML BAG 1,000 ML IV SCH ×2 (09:33→23:59)
[2016-05-29] MEDS: PANTOPRAZOLE 40 MG TABLET. PO SCH (09:33)
[2016-05-29] MEDS: LACTULOSE 20 GM/30 ML SOLUTION. PO SCH ×2 (09:33→20:55)
[2016-05-29 11:14] VITALS: BP 138/67
--- NOTE | 2016-05-29 11:16 | PDOC ---
PROGRESS NOTES Chief Complaint Chief Complaint Altered mental status, hyperammonemia 1. Encephalopathy, possible metabolic, hepatic. 2. Acute kidney injury. 3. Metabolic acidosis. 4. Thrombocytopenia. 5. Anemia, chronic. 6. Hyperbilirubinemia. 7. Alcoholism. History of Present Illness History of Present Illness Patient lying in bed when evaluated this AM. 1:1 sitter at bedside as pt has been confused and a danger to self when attempting to move around. Pt confused at the present, and thus a poor historian. Pt states that she has had alcohol issues in the past, but claims to have not had a drink in 2 months. Vitals Vitals Vital Signs Date Time Temp Pulse Resp B/P Pulse Ox O2 Delivery O2 Flow Rate FiO2 05/29/16 09:59 96 Room Air 05/29/16 07:17 97.6 79 18 117/65 97.6 Physical Exam General: No acute distress, Other (confused, not oriented to time) Heart: Regular rate, Normal S1, No murmurs Lungs: Clear Abdomen: Soft, No tenderness, Other (no ascites) Extremities: No edema Skin: No significant lesion Labs LABS Laboratory Tests Test 05/28/16 14:35 05/28/16 16:20 05/28/16 17:20 05/28/16 20:40 White Blood Count 7.0x10^3/uL (4.0-11.0) Red Blood Count 2.66x10^6/uL (3.50-5.40) Hemoglobin 9.7g/dL (12.0-15.5) Hematocrit 27.5% (36.0-47.0) Mean Corpuscular Volume 103fL (79-100) Mean Corpuscular Hemoglobin 37pg (25-35) Mean Corpuscular Hemoglobin Concent 35g/dL (31-37) Red Cell Distribution Width 19.0% (11.5-14.5) Platelet Count 105x10^3/uL (140-400) Neutrophils (%) (Auto) 67% (31-73) Lymphocytes (%) (Auto) 13% (24-48) Monocytes (%) (Auto) 18% (0-9) Eosinophils (%) (Auto) 1% (0-3) Basophils (%) (Auto) 1% (0-3) Neutrophils # (Auto) 4.7x10^3uL (1.8-7.7) Lymphocytes # (Auto) 0.9x10^3/uL (1.0-4.8) Monocytes # (Auto) 1.2x10^3/uL (0.0-1.1) Eosinophils # (Auto) 0.1x10^3/uL (0.0-0.7) Basophils # (Auto) 0.1x10^3/uL (0.0-0.2) Sodium Level 144mmol/L (136-145) Potassium Level 4.1mmol/L (3.5-5.1) Chloride Level 106mmol/L (98-107) Carbon Dioxide Level 20mmol/L (21-32) Anion Gap 18 (6-14) Blood Urea Nitrogen 40mg/dL (7-20) Creatinine 4.3mg/dL (0.6-1.0) Estimated GFR (Cockcroft-Gault) 10.1 BUN/Creatinine Ratio 9 (6-20) Glucose Level 130mg/dL (70-99) Calcium Level 9.6mg/dL (8.5-10.1) Total Bilirubin 2.2mg/dL (0.2-1.0) Aspartate Amino Transf (AST/SGOT) 73U/L (15-37) Alanine Aminotransferase (ALT/SGPT) 20U/L (14-59) Alkaline Phosphatase 189U/L (46-116) Troponin I Quantitative < 0.017ng/mL (0.000-0.055) Total Protein 8.4g/dL (6.4-8.2) Albumin 2.5g/dL (3.4-5.0) Albumin/Globulin Ratio 0.4 (1.0-1.7) Ammonia 81mcmol/L (11-34) Urine Collection Type U cath Urine Color Yellow Urine Clarity Clear Urine pH 6.0 Urine Specific [place] 1.015 Urine Protein 30mg/dL (NEG-TRACE) Urine Glucose (UA) Negativemg/dL (NEG) Urine Ketones (Stick) Negativemg/dL (NEG) Urine Blood Small (NEG) Urine Nitrite Negative (NEG) Urine Bilirubin Negative (NEG) Urine Urobilinogen Dipstick 0.2mg/dL (0.2 mg/dL) Urine Leukocyte Esterase Negative (NEG) Urine RBC 3-5/HPF (0-2) Urine WBC Occ/HPF (0-4) Urine Squamous Epithelial Cells Occ/LPF Urine Amorphous Sediment Present/HPF Urine Bacteria 0/HPF (0-FEW) Urine Granular Casts Few/HPF Prothrombin Time 18.0SEC (11.7-14.0) Prothromb Time International Ratio 1.6 (0.8-1.1) Test 05/29/16 02:30 White Blood Count 6.6x10^3/uL (4.0-11.0) Red Blood Count 2.23x10^6/uL (3.50-5.40) Hemoglobin 7.8g/dL (12.0-15.5) Hematocrit 22.5% (36.0-47.0) Mean Corpuscular Volume 101fL (79-100) Mean Corpuscular Hemoglobin 35pg (25-35) Mean Corpuscular Hemoglobin Concent 35g/dL (31-37) Red Cell Distribution Width 19.2% (11.5-14.5) Platelet Count 81x10^3/uL (140-400) Neutrophils (%) (Auto) 61% (31-73) Lymphocytes (%) (Auto) 15% (24-48) Monocytes (%) (Auto) 20% (0-9) Eosinophils (%) (Auto) 2% (0-3) Basophils (%) (Auto) 2% (0-3) Neutrophils # (Auto) 4.1x10^3uL (1.8-7.7) Lymphocytes # (Auto) 1.0x10^3/uL (1.0-4.8) Monocytes # (Auto) 1.4x10^3/uL (0.0-1.1) Eosinophils # (Auto) 0.1x10^3/uL (0.0-0.7) Basophils # (Auto) 0.1x10^3/uL (0.0-0.2) Sodium Level 147mmol/L (136-145) Potassium Level 3.9mmol/L (3.5-5.1) Chloride Level 112mmol/L (98-107) Carbon Dioxide Level 18mmol/L (21-32) Anion Gap 17 (6-14) Blood Urea Nitrogen 41mg/dL (7-20) Creatinine 4.2mg/dL (0.6-1.0) Estimated GFR (Cockcroft-Gault) 10.4 Glucose Level 88mg/dL (70-99) Calcium Level 8.9mg/dL (8.5-10.1) Review of Systems Review of Systems confused, poor historian- limits ROS denies fever, chills Assessment and Plan Assessmemt and Plan ASSESSMENT: - Altered mental status, hyperammonemia - Encephalopathy, possible metabolic, hepatic. - Acute kidney injury. - Metabolic acidosis. - Thrombocytopenia. - Anemia, chronic. - Hyperbilirubinemia. - Alcoholism. PLAN: - consult delinquency prevention social worker for SNU eval - cont prn lactulose - cont to monitor ammonia. - appreciate GI input - cont 1:1 observation for confusion Problems: Comment Review of Relevant I have reviewed the following items amy (where applicable) has been applied. Labs Laboratory Tests Test 05/28/16 14:35 05/28/16 16:20 05/28/16 17:20 05/28/16 20:40 White Blood Count 7.0x10^3/uL (4.0-11.0) Red Blood Count 2.66x10^6/uL (3.50-5.40) Hemoglobin 9.7g/dL (12.0-15.5) Hematocrit 27.5% (36.0-47.0) Mean Corpuscular Volume 103fL (79-100) Mean Corpuscular Hemoglobin 37pg (25-35) Mean Corpuscular Hemoglobin Concent 35g/dL (31-37) Red Cell Distribution Width 19.0% (11.5-14.5) Platelet Count 105x10^3/uL (140-400) Neutrophils (%) (Auto) 67% (31-73) Lymphocytes (%) (Auto) 13% (24-48) Monocytes (%) (Auto) 18% (0-9) Eosinophils (%) (Auto) 1% (0-3) Basophils (%) (Auto) 1% (0-3) Neutrophils # (Auto) 4.7x10^3uL (1.8-7.7) Lymphocytes # (Auto) 0.9x10^3/uL (1.0-4.8) Monocytes # (Auto) 1.2x10^3/uL (0.0-1.1) Eosinophils # (Auto) 0.1x10^3/uL (0.0-0.7) Basophils # (Auto) 0.1x10^3/uL (0.0-0.2) Sodium Level 144mmol/L (136-145) Potassium Level 4.1mmol/L (3.5-5.1) Chloride Level 106mmol/L (98-107) Carbon Dioxide Level 20mmol/L (21-32) Anion Gap 18 (6-14) Blood Urea Nitrogen 40mg/dL (7-20) Creatinine 4.3mg/dL (0.6-1.0) Estimated GFR (Cockcroft-Gault) 10.1 BUN/Creatinine Ratio 9 (6-20) Glucose Level 130mg/dL (70-99) Calcium Level 9.6mg/dL (8.5-10.1) Total Bilirubin 2.2mg/dL (0.2-1.0) Aspartate Amino Transf (AST/SGOT) 73U/L (15-37) Alanine Aminotransferase (ALT/SGPT) 20U/L (14-59) Alkaline Phosphatase 189U/L (46-116) Troponin I Quantitative < 0.017ng/mL (0.000-0.055) Total Protein 8.4g/dL (6.4-8.2) Albumin 2.5g/dL (3.4-5.0) Albumin/Globulin Ratio 0.4 (1.0-1.7) Ammonia 81mcmol/L (11-34) Urine Collection Type U cath Urine Color Yellow Urine Clarity Clear Urine pH 6.0 Urine Specific [place] 1.015 Urine Protein 30mg/dL (NEG-TRACE) Urine Glucose (UA) Negativemg/dL (NEG) Urine Ketones (Stick) Negativemg/dL (NEG) Urine Blood Small (NEG) Urine Nitrite Negative (NEG) Urine Bilirubin Negative (NEG) Urine Urobilinogen Dipstick 0.2mg/dL (0.2 mg/dL) Urine Leukocyte Esterase Negative (NEG) Urine RBC 3-5/HPF (0-2) Urine WBC Occ/HPF (0-4) Urine Squamous Epithelial Cells Occ/LPF Urine Amorphous Sediment Present/HPF Urine Bacteria 0/HPF (0-FEW) Urine Granular Casts Few/HPF Prothrombin Time 18.0SEC (11.7-14.0) Prothromb Time International Ratio 1.6 (0.8-1.1) Test 05/29/16 02:30 White Blood Count 6.6x10^3/uL (4.0-11.0) Red Blood Count 2.23x10^6/uL (3.50-5.40) Hemoglobin 7.8g/dL (12.0-15.5) Hematocrit 22.5% (36.0-47.0) Mean Corpuscular Volume 101fL (79-100) Mean Corpuscular Hemoglobin 35pg (25-35) Mean Corpuscular Hemoglobin Concent 35g/dL (31-37) Red Cell Distribution Width 19.2% (11.5-14.5) Platelet Count 81x10^3/uL (140-400) Neutrophils (%) (Auto) 61% (31-73) Lymphocytes (%) (Auto) 15% (24-48) Monocytes (%) (Auto) 20% (0-9) Eosinophils (%) (Auto) 2% (0-3) Basophils (%) (Auto) 2% (0-3) Neutrophils # (Auto) 4.1x10^3uL (1.8-7.7) Lymphocytes # (Auto) 1.0x10^3/uL (1.0-4.8) Monocytes # (Auto) 1.4x10^3/uL (0.0-1.1) Eosinophils # (Auto) 0.1x10^3/uL (0.0-0.7) Basophils # (Auto) 0.1x10^3/uL (0.0-0.2) Sodium Level 147mmol/L (136-145) Potassium Level 3.9mmol/L (3.5-5.1) Chloride Level 112mmol/L (98-107) Carbon Dioxide Level 18mmol/L (21-32) Anion Gap 17 (6-14) Blood Urea Nitrogen 41mg/dL (7-20) Creatinine 4.2mg/dL (0.6-1.0) Estimated GFR (Cockcroft-Gault) 10.4 Glucose Level 88mg/dL (70-99) Calcium Level 8.9mg/dL (8.5-10.1) Laboratory Tests Test 05/28/16 14:35 05/28/16 16:20 05/28/16 17:20 05/28/16 20:40 White Blood Count 7.0x10^3/uL (4.0-11.0) Red Blood Count 2.66x10^6/uL (3.50-5.40) Hemoglobin 9.7g/dL (12.0-15.5) Hematocrit 27.5% (36.0-47.0) Mean Corpuscular Volume 103fL (79-100) Mean Corpuscular Hemoglobin 37pg (25-35) Mean Corpuscular Hemoglobin Concent 35g/dL (31-37) Red Cell Distribution Width 19.0% (11.5-14.5) Platelet Count 105x10^3/uL (140-400) Neutrophils (%) (Auto) 67% (31-73) Lymphocytes (%) (Auto) 13% (24-48) Monocytes (%) (Auto) 18% (0-9) Eosinophils (%) (Auto) 1% (0-3) Basophils (%) (Auto) 1% (0-3) Neutrophils # (Auto) 4.7x10^3uL (1.8-7.7) Lymphocytes # (Auto) 0.9x10^3/uL (1.0-4.8) Monocytes # (Auto) 1.2x10^3/uL (0.0-1.1) Eosinophils # (Auto) 0.1x10^3/uL (0.0-0.7) Basophils # (Auto) 0.1x10^3/uL (0.0-0.2) Sodium Level 144mmol/L (136-145) Potassium Level 4.1mmol/L (3.5-5.1) Chloride Level 106mmol/L (98-107) Carbon Dioxide Level 20mmol/L (21-32) Anion Gap 18 (6-14) Blood Urea Nitrogen 40mg/dL (7-20) Creatinine 4.3mg/dL (0.6-1.0) Estimated GFR (Cockcroft-Gault) 10.1 BUN/Creatinine Ratio 9 (6-20) Glucose Level 130mg/dL (70-99) Calcium Level 9.6mg/dL (8.5-10.1) Total Bilirubin 2.2mg/dL (0.2-1.0) Aspartate Amino Transf (AST/SGOT) 73U/L (15-37) Alanine Aminotransferase (ALT/SGPT) 20U/L (14-59) Alkaline Phosphatase 189U/L (46-116) Troponin I Quantitative < 0.017ng/mL (0.000-0.055) Total Protein 8.4g/dL (6.4-8.2) Albumin 2.5g/dL (3.4-5.0) Albumin/Globulin Ratio 0.4 (1.0-1.7) Ammonia 81mcmol/L (11-34) Urine Collection Type U cath Urine Color Yellow Urine Clarity Clear Urine pH 6.0 Urine Specific [place] 1.015 Urine Protein 30mg/dL (NEG-TRACE) Urine Glucose (UA) Negativemg/dL (NEG) Urine Ketones (Stick) Negativemg/dL (NEG) Urine Blood Small (NEG) Urine Nitrite Negative (NEG) Urine Bilirubin Negative (NEG) Urine Urobilinogen Dipstick 0.2mg/dL (0.2 mg/dL) Urine Leukocyte Esterase Negative (NEG) Urine RBC 3-5/HPF (0-2) Urine WBC Occ/HPF (0-4) Urine Squamous Epithelial Cells Occ/LPF Urine Amorphous Sediment Present/HPF Urine Bacteria 0/HPF (0-FEW) Urine Granular Casts Few/HPF Prothrombin Time 18.0SEC (11.7-14.0) Prothromb Time International Ratio 1.6 (0.8-1.1) Test 05/29/16 02:30 White Blood Count 6.6x10^3/uL (4.0-11.0) Red Blood Count 2.23x10^6/uL (3.50-5.40) Hemoglobin 7.8g/dL (12.0-15.5) Hematocrit 22.5% (36.0-47.0) Mean Corpuscular Volume 101fL (79-100) Mean Corpuscular Hemoglobin 35pg (25-35) Mean Corpuscular Hemoglobin Concent 35g/dL (31-37) Red Cell Distribution Width 19.2% (11.5-14.5) Platelet Count 81x10^3/uL (140-400) Neutrophils (%) (Auto) 61% (31-73) Lymphocytes (%) (Auto) 15% (24-48) Monocytes (%) (Auto) 20% (0-9) Eosinophils (%) (Auto) 2% (0-3) Basophils (%) (Auto) 2% (0-3) Neutrophils # (Auto) 4.1x10^3uL (1.8-7.7) Lymphocytes # (Auto) 1.0x10^3/uL (1.0-4.8) Monocytes # (Auto) 1.4x10^3/uL (0.0-1.1) Eosinophils # (Auto) 0.1x10^3/uL (0.0-0.7) Basophils # (Auto) 0.1x10^3/uL (0.0-0.2) Sodium Level 147mmol/L (136-145) Potassium Level 3.9mmol/L (3.5-5.1) Chloride Level 112mmol/L (98-107) Carbon Dioxide Level 18mmol/L (21-32) Anion Gap 17 (6-14) Blood Urea Nitrogen 41mg/dL (7-20) Creatinine 4.2mg/dL (0.6-1.0) Estimated GFR (Cockcroft-Gault) 10.4 Glucose Level 88mg/dL (70-99) Calcium Level 8.9mg/dL (8.5-10.1) Medications Current Medications Sodium Chloride (Iv Sodium Chloride 0.9% 1000ml Bag) 1,000 ml @ 1,000 mls/hr 1X ONCE IV Last administered on 05/28/16t 16:07; Start 05/28/16 at 15:45; Stop 05/28/16 at 16:44; Status DC Ondansetron HCl 4 mg 4 mg PRN Q8HRS PRN IV NAUSEA/VOMITING; Start 05/28/16 at 17 :15; Stop 05/29/16 at 09:22; Status DC Sodium Chloride (Iv Sodium Chloride 0.9% 1000ml Bag) 1,000 ml @ 125 mls/hr Q8H IV ; Start 05/28/16 at 17:07; Stop 05/28/16 at 18:38; Status DC Lactulose 20 gm 20 gm PRN BID PRN PO CONSTIPATION; Start 05/28/16 at 18:45; Stop 05/29/16 at 10:00; Status DC Sodium Chloride (Iv Sodium Chloride 0.9% 1000ml Bag) 1,000 ml @ 75 mls/hr [id number] IV Last administered on 05/29/16 09:33; Start 05/28/16 at 19:00 Acetaminophen (Tylenol) 325 mg PRN Q6HRS PRN PO MILD PAIN / TEMP; Start at 19:00 Acetaminophen/ Hydrocodone Bitart (Lortab 5/325) 1 tab PRN Q6HRS PRN PO MODERATE TO SEVERE PAIN Last administered on 05/28/16 19:50; Start 05/28/16 at 19 :00 Hydralazine HCl (Apresoline) 10 mg PRN Q4HRS PRN IVP ELEVATED BP, SEE COMMENTS ; Start 05/28/16 at 19:00 Ondansetron HCl (Zofran) 4 mg PRN Q8HRS PRN IV NAUSEA/VOMITING; Start 05/28/16 at 19:00 Albuterol Sulfate (Ventolin Neb Soln) 2.5 mg PRN Q4HRS PRN NEB SHORTNESS OF BREATH; Start 05/28/16 at 19:00 Lactulose 20 gm BID PO Last administered on 05/29/16 09:33; Start 05/29/16 at 10 :00 Pantoprazole Sodium (Protonix) 40 mg DAILYAC PO Last administered on 05/29/16 09:33; Start 05/29/16 at 10:00 Active Scripts Active Pantoprazole Sodium 40 Mg Tablet.dr 40 Mg PO DAILYAC 30 Days Reported Neomycin Sulfate 500 Mg Tablet 1 Tab PO BID Spironolactone 50 Mg Tablet 1 Tab PO DAILY Mag-Oxide (Magnesium Oxide) 400 Mg Tablet 2 Tab PO BID Vitamin D3 (Cholecalciferol (Vitamin D3)) 400 Unit Tablet 400 Unit PO BID Fish Oil Conc 1,000 mg Softgel ([place]-3/Dha/Epa/Fish Oil) 1,000 Mg Capsule 3, 000 Mg PO DAILY Multiple Vitamin (Multivitamin With Minerals) 1 Each Tablet 1 Each PO Corzide 40-5 Tablet (Nadolol/Bendroflumethiazide) 1 Each Tablet 0.5 Tab PO DAILY Coenzyme Q10 (Ubidecarenone) 100 Mg Capsule 100 Mg PO DAILY Calcium (Calcium Carbonate) 600 Mg Tablet 600 Mg PO BID Vitals/I & O Vital Sign - Last 24 Hours 3/205/28/16 05/28/16 05/28/16 14:16 15:00 16:00 17:00 Temp 97.8 97.8 Pulse 84 77 78 70 Resp 14 B/P 148/62 130/75 144/77 130/70 Pulse Ox 98 O2 Delivery Room Air Room Air Room Air Room Air 05/28/16 05/28/16 05/28/16 05/28/16 18:00 19:24 19:32 19:50 Pulse 62 Resp 15 B/P 133/82 Pulse Ox 99 O2 Delivery Room Air Room Air Room Air Room Air 05/28/16 05/28/16 05/29/16 05/29/16 19:59 23:05 03:21 07:17 Temp 97.9 98.0 98.2 97.6 97.9 98.0 98.2 97.6 Pulse 89 80 85 79 Resp 15 16 16 18 B/P 138/76 113/67 120/75 117/65 Pulse Ox 99 90 97 94 O2 Delivery Room Air Room Air Room Air Room Air 05/29/16 05/29/16 07:40 09:59 Pulse Ox 96 O2 Delivery Room Air Room Air Intake and Output 05/28/16 05/28/16 05/29/16 15:00 23:00 07:00 Intake Total 200 ml Output Total 500 ml Balance -300 ml MARCEL ENGLISH III DO May 29, 2016 11:16
[2016-05-29 13:36] LABS: % BASOS 1 % (0-3); % EOS 2 % (0-5); ANISOCYTOSIS SLIGHT; PLT ESTIMATE DECREASED (ADEQUATE)
[2016-05-29 13:40] LABS: ROULEAUX PRESENT
[2016-05-29] MEDS: HYDROCODONE/APAP 5/325MG TABLET. PO PRN ×2 (14:26→20:56)
[2016-05-29 15:09] VITALS: BP 145/65
--- NOTE | 2016-05-29 15:23 | RAD ---
Deep Doppler hepatic ultrasound, 05/29/2016: History: Cirrhosis, portal hypertension The portal vein is patent and demonstrates a normal direction of flow. Patent hepatic veins are evident. Hepatic arterial blood flow is evident. Incidental note is made of a small volume of ascites. IMPRESSION: The hepatic vasculature is unremarkable.
[2016-05-29 19:00] VITALS: BP 134/76
[2016-05-29 23:01] VITALS: BP 104/76
[2016-05-30 03:00] VITALS: BP 133/94
[2016-05-30 05:46] LABS: CALCIUM 8.8 mg/dL (8.5-10.1); CREATININE 4.1 mg/dL (0.6-1.0); GFR 10.7; POTASSIUM 3.9 mmol/L (3.5-5.1)
[2016-05-30 06:24] LABS: BASO # 0.1 x10^3/uL (0.0-0.2); BASO % 1 % (0-3); EOS % 5 % (0-3); HEMATOCRIT 23.4 % (36.0-47.0); HEMOGLOBIN 7.8 g/dL (12.0-15.5); LYMPH # 1.3 x10^3/uL (1.0-4.8); LYMPH % 20 % (24-48); MEAN CORPUSCULAR HEMOGLOBIN 33 pg (25-35); MEAN CORPUSCULAR HGB CONC 33 g/dL (31-37); MEAN CORPUSCULAR VOLUME 98 fL (79-100); MONO % 19 % (0-9); NEUT % 55 % (31-73); PLATELET COUNT 83 x10^3/uL (140-400); RED BLOOD COUNT 2.39 x10^6/uL (3.50-5.40); RED CELL DISTRIBUTION WIDTH 18.9 % (11.5-14.5); WHITE BLOOD COUNT 6.6 x10^3/uL (4.0-11.0)
[2016-05-30 07:11] VITALS: BP 150/81
[2016-05-30] MEDS: PANTOPRAZOLE 40 MG TABLET. PO SCH (08:29)
[2016-05-30] MEDS: LACTULOSE 20 GM/30 ML SOLUTION. PO SCH ×3 (08:29→20:32)
[2016-05-30 11:06] VITALS: BP 137/82
[2016-05-30] MEDS: IV NORMAL SALINE 1000ML BAG 1,000 ML IV SCH ×2 (12:31→23:58)
--- NOTE | 2016-05-30 12:59 | PDOC ---
PROGRESS NOTES Chief Complaint Chief Complaint Altered mental status, hyperammonemia 1. Encephalopathy, possible metabolic, hepatic. 2. Acute kidney injury. 3. Metabolic acidosis. 4. Thrombocytopenia. 5. Anemia, chronic. 6. Hyperbilirubinemia. 7. Alcoholism. History of Present Illness History of Present Illness Patient lying in bed when evaluated this AM. 1:1 sitter at bedside as pt continues to be confused and a danger to self when attempting to move around. SW reporting that pt is followed by [facility] and will resume upon discharge. 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 Colunga, hematology/oncology, will be consulted. Ammonia is improving. Hepatic US showed unremarkable hepatic vasculature. Vitals Vitals Vital Signs Date Time Temp Pulse Resp B/P Pulse Ox O2 Delivery O2 Flow Rate FiO2 05/30/16 11:06 97.1 89 20 137/82 97 Room Air 97.1 Physical Exam General: No acute distress, Other (confused, not oriented to time) Heart: Regular rate, Normal S1, No murmurs Lungs: Clear Abdomen: Soft, No tenderness, Other (no ascites) Extremities: No edema Skin: No significant lesion Labs LABS Laboratory Tests Test 05/30/16 04:50 05/30/16 11:15 White Blood Count 6.6x10^3/uL (4.0-11.0) Red Blood Count 2.39x10^6/uL (3.50-5.40) Hemoglobin 7.8g/dL (12.0-15.5) Hematocrit 23.4% (36.0-47.0) Mean Corpuscular Volume 98fL (79-100) Mean Corpuscular Hemoglobin 33pg (25-35) Mean Corpuscular Hemoglobin Concent 33g/dL (31-37) Red Cell Distribution Width 18.9% (11.5-14.5) Platelet Count 83x10^3/uL (140-400) Neutrophils (%) (Auto) 55% (31-73) Lymphocytes (%) (Auto) 20% (24-48) Monocytes (%) (Auto) 19% (0-9) Eosinophils (%) (Auto) 5% (0-3) Basophils (%) (Auto) 1% (0-3) Neutrophils # (Auto) 3.6x10^3uL (1.8-7.7) Lymphocytes # (Auto) 1.3x10^3/uL (1.0-4.8) Monocytes # (Auto) 1.2x10^3/uL (0.0-1.1) Eosinophils # (Auto) 0.4x10^3/uL (0.0-0.7) Basophils # (Auto) 0.1x10^3/uL (0.0-0.2) Sodium Level 141mmol/L (136-145) Potassium Level 3.9mmol/L (3.5-5.1) Chloride Level 109mmol/L (98-107) Carbon Dioxide Level 16mmol/L (21-32) Anion Gap 16 (6-14) Blood Urea Nitrogen 36mg/dL (7-20) Creatinine 4.1mg/dL (0.6-1.0) Estimated GFR (Cockcroft-Gault) 10.7 Glucose Level 103mg/dL (70-99) Calcium Level 8.8mg/dL (8.5-10.1) Ammonia 112mcmol/L (11-34) Review of Systems Review of Systems confused, poor historian- limits ROS denies fever, chills Assessment and Plan Assessmemt and Plan ASSESSMENT: - Altered mental status, hyperammonemia - Encephalopathy, possible metabolic, hepatic. - Acute kidney injury. - Metabolic acidosis. - Thrombocytopenia. - Anemia, chronic. - Hyperbilirubinemia. - Alcoholism - Abnormal peripheral smear PLAN: - reporting that pt will resume [facility] when discharged. - consulting hematology/oncology for abnormal peripheral smear and anemia (+ rouleaux formations, anisocytosis; Hgb 7.8) - cont prn lactulose - cont to monitor ammonia. (60 improved from 81) - appreciate subspecialty input - cont 1:1 observation for confusion/ OOB injury risk - discharge disposition pending. Problems: Comment Review of Relevant I have reviewed the following items amy (where applicable) has been applied. Labs Laboratory Tests Test 05/28/16 14:35 05/28/16 16:20 05/28/16 17:20 05/28/16 20:40 White Blood Count 7.0x10^3/uL (4.0-11.0) Red Blood Count 2.66x10^6/uL (3.50-5.40) Hemoglobin 9.7g/dL (12.0-15.5) Hematocrit 27.5% (36.0-47.0) Mean Corpuscular Volume 103fL (79-100) Mean Corpuscular Hemoglobin 37pg (25-35) Mean Corpuscular Hemoglobin Concent 35g/dL (31-37) Red Cell Distribution Width 19.0% (11.5-14.5) Platelet Count 105x10^3/uL (140-400) Neutrophils (%) (Auto) 67% (31-73) Lymphocytes (%) (Auto) 13% (24-48) Monocytes (%) (Auto) 18% (0-9) Eosinophils (%) (Auto) 1% (0-3) Basophils (%) (Auto) 1% (0-3) Neutrophils # (Auto) 4.7x10^3uL (1.8-7.7) Lymphocytes # (Auto) 0.9x10^3/uL (1.0-4.8) Monocytes # (Auto) 1.2x10^3/uL (0.0-1.1) Eosinophils # (Auto) 0.1x10^3/uL (0.0-0.7) Basophils # (Auto) 0.1x10^3/uL (0.0-0.2) Sodium Level 144mmol/L (136-145) Potassium Level 4.1mmol/L (3.5-5.1) Chloride Level 106mmol/L (98-107) Carbon Dioxide Level 20mmol/L (21-32) Anion Gap 18 (6-14) Blood Urea Nitrogen 40mg/dL (7-20) Creatinine 4.3mg/dL (0.6-1.0) Estimated GFR (Cockcroft-Gault) 10.1 BUN/Creatinine Ratio 9 (6-20) Glucose Level 130mg/dL (70-99) Calcium Level 9.6mg/dL (8.5-10.1) Total Bilirubin 2.2mg/dL (0.2-1.0) Aspartate Amino Transf (AST/SGOT) 73U/L (15-37) Alanine Aminotransferase (ALT/SGPT) 20U/L (14-59) Alkaline Phosphatase 189U/L (46-116) Troponin I Quantitative < 0.017ng/mL (0.000-0.055) Total Protein 8.4g/dL (6.4-8.2) Albumin 2.5g/dL (3.4-5.0) Albumin/Globulin Ratio 0.4 (1.0-1.7) Ammonia 81mcmol/L (11-34) Urine Collection Type U cath Urine Color Yellow Urine Clarity Clear Urine pH 6.0 Urine Specific [place] 1.015 Urine Protein 30mg/dL (NEG-TRACE) Urine Glucose (UA) Negativemg/dL (NEG) Urine Ketones (Stick) Negativemg/dL (NEG) Urine Blood Small (NEG) Urine Nitrite Negative (NEG) Urine Bilirubin Negative (NEG) Urine Urobilinogen Dipstick 0.2mg/dL (0.2 mg/dL) Urine Leukocyte Esterase Negative (NEG) Urine RBC 3-5/HPF (0-2) Urine WBC Occ/HPF (0-4) Urine Squamous Epithelial Cells Occ/LPF Urine Amorphous Sediment Present/HPF Urine Bacteria 0/HPF (0-FEW) Urine Granular Casts Few/HPF Prothrombin Time 18.0SEC (11.7-14.0) Prothromb Time International Ratio 1.6 (0.8-1.1) Test 05/29/16 02:30 05/29/16 12:08 05/30/16 04:50 05/30/16 11:15 White Blood Count 6.6x10^3/uL (4.0-11.0) 6.6x10^3/uL (4.0-11.0) Red Blood Count 2.23x10^6/uL (3.50-5.40) 2.39x10^6/uL (3.50-5.40) Hemoglobin 7.8g/dL (12.0-15.5) 7.8g/dL (12.0-15.5) Hematocrit 22.5% (36.0-47.0) 23.4% (36.0-47.0) Mean Corpuscular Volume 101fL (79-100) 98fL (79-100) Mean Corpuscular Hemoglobin 35pg (25-35) 33pg (25-35) Mean Corpuscular Hemoglobin Concent 35g/dL (31-37) 33g/dL (31-37) Red Cell Distribution Width 19.2% (11.5-14.5) 18.9% (11.5-14.5) Platelet Count 81x10^3/uL (140-400) 83x10^3/uL (140-400) Neutrophils (%) (Auto) 61% (31-73) 55% (31-73) Lymphocytes (%) (Auto) 15% (24-48) 20% (24-48) Monocytes (%) (Auto) 20% (0-9) 19% (0-9) Eosinophils (%) (Auto) 2% (0-3) 5% (0-3) Basophils (%) (Auto) 2% (0-3) 1% (0-3) Neutrophils # (Auto) 4.1x10^3uL (1.8-7.7) 3.6x10^3uL (1.8-7.7) Lymphocytes # (Auto) 1.0x10^3/uL (1.0-4.8) 1.3x10^3/uL (1.0-4.8) Monocytes # (Auto) 1.4x10^3/uL (0.0-1.1) 1.2x10^3/uL (0.0-1.1) Eosinophils # (Auto) 0.1x10^3/uL (0.0-0.7) 0.4x10^3/uL (0.0-0.7) Basophils # (Auto) 0.1x10^3/uL (0.0-0.2) 0.1x10^3/uL (0.0-0.2) Segmented Neutrophils % 55% (35-66) Lymphocytes % 21% (24-48) Monocytes % 21% (0-10) Eosinophils % 2% (0-5) Basophils % 1% (0-3) Platelet Estimate Decreased (ADEQUATE) Anisocytosis Slight Rouleau Present Sodium Level 147mmol/L (136-145) 141mmol/L (136-145) Potassium Level 3.9mmol/L (3.5-5.1) 3.9mmol/L (3.5-5.1) Chloride Level 112mmol/L (98-107) 109mmol/L (98-107) Carbon Dioxide Level 18mmol/L (21-32) 16mmol/L (21-32) Anion Gap 17 (6-14) 16 (6-14) Blood Urea Nitrogen 41mg/dL (7-20) 36mg/dL (7-20) Creatinine 4.2mg/dL (0.6-1.0) 4.1mg/dL (0.6-1.0) Estimated GFR (Cockcroft-Gault) 10.4 10.7 Glucose Level 88mg/dL (70-99) 103mg/dL (70-99) Calcium Level 8.9mg/dL (8.5-10.1) 8.8mg/dL (8.5-10.1) Ammonia 60mcmol/L (11-34) 112mcmol/L (11-34) Tumor Marker Alpha Fetoprotein 3.2ng/mL (0.0-8.3) Laboratory Tests Test 05/30/16 04:50 05/30/16 11:15 White Blood Count 6.6x10^3/uL (4.0-11.0) Red Blood Count 2.39x10^6/uL (3.50-5.40) Hemoglobin 7.8g/dL (12.0-15.5) Hematocrit 23.4% (36.0-47.0) Mean Corpuscular Volume 98fL (79-100) Mean Corpuscular Hemoglobin 33pg (25-35) Mean Corpuscular Hemoglobin Concent 33g/dL (31-37) Red Cell Distribution Width 18.9% (11.5-14.5) Platelet Count 83x10^3/uL (140-400) Neutrophils (%) (Auto) 55% (31-73) Lymphocytes (%) (Auto) 20% (24-48) Monocytes (%) (Auto) 19% (0-9) Eosinophils (%) (Auto) 5% (0-3) Basophils (%) (Auto) 1% (0-3) Neutrophils # (Auto) 3.6x10^3uL (1.8-7.7) Lymphocytes # (Auto) 1.3x10^3/uL (1.0-4.8) Monocytes # (Auto) 1.2x10^3/uL (0.0-1.1) Eosinophils # (Auto) 0.4x10^3/uL (0.0-0.7) Basophils # (Auto) 0.1x10^3/uL (0.0-0.2) Sodium Level 141mmol/L (136-145) Potassium Level 3.9mmol/L (3.5-5.1) Chloride Level 109mmol/L (98-107) Carbon Dioxide Level 16mmol/L (21-32) Anion Gap 16 (6-14) Blood Urea Nitrogen 36mg/dL (7-20) Creatinine 4.1mg/dL (0.6-1.0) Estimated GFR (Cockcroft-Gault) 10.7 Glucose Level 103mg/dL (70-99) Calcium Level 8.8mg/dL (8.5-10.1) Ammonia 112mcmol/L (11-34) Microbiology 05/28/16 Blood Culture - Preliminary, Resulted NO GROWTH AFTER 1 DAY Medications Current Medications Sodium Chloride (Iv Sodium Chloride 0.9% 1000ml Bag) 1,000 ml @ 1,000 mls/hr 1X ONCE IV Last administered on 05/28/16 16:07; Start 05/28/16 at 15:45; Stop 05/28/16 at 16:44; Status DC Ondansetron HCl 4 mg 4 mg PRN Q8HRS PRN IV NAUSEA/VOMITING; Start 05/28/16 at 17 :15; Stop 05/29/16 at 09:22; Status DC Sodium Chloride (Iv Sodium Chloride 0.9% 1000ml Bag) 1,000 ml @ 125 mls/hr Q8H IV ; Start 05/28/16 at 17:07; Stop 05/28/16 at 18:38; Status DC Lactulose 20 gm 20 gm PRN BID PRN PO CONSTIPATION; Start 05/28/16 at 18:45; Stop 05/29/16 at 10:00; Status DC Sodium Chloride (Iv Sodium Chloride 0.9% 1000ml Bag) 1,000 ml @ 75 mls/hr [id number] IV Last administered on 05/30/16 12:31; Start 05/28/16 at 19:00 Acetaminophen (Tylenol) 325 mg PRN Q6HRS PRN PO MILD PAIN / TEMP; Start at 19:00 Acetaminophen/ Hydrocodone Bitart (Lortab 5/325) 1 tab PRN Q6HRS PRN PO MODERATE TO SEVERE PAIN Last administered on 05/29/16 20:56; Start 05/28/16 at 19 :00 Hydralazine HCl (Apresoline) 10 mg PRN Q4HRS PRN IVP ELEVATED BP, SEE COMMENTS ; Start 05/28/16 at 19:00 Ondansetron HCl (Zofran) 4 mg PRN Q8HRS PRN IV NAUSEA/VOMITING Last administered on 05/30/16 03:36; Start 05/28/16 at 19:00 Albuterol Sulfate (Ventolin Neb Soln) 2.5 mg PRN Q4HRS PRN NEB SHORTNESS OF BREATH; Start 05/28/16 at 19:00 Lactulose 20 gm BID PO Last administered on 05/30/16 08:29; Start 05/29/16 at 10 :00 Pantoprazole Sodium (Protonix) 40 mg DAILYAC PO Last administered on 05/30/16 08:29; Start 05/29/16 at 10:00 Active Scripts Active Pantoprazole Sodium 40 Mg Tablet.dr 40 Mg PO DAILYAC 30 Days Reported Neomycin Sulfate 500 Mg Tablet 1 Tab PO BID Spironolactone 50 Mg Tablet 1 Tab PO DAILY Mag-Oxide (Magnesium Oxide) 400 Mg Tablet 2 Tab PO BID Vitamin D3 (Cholecalciferol (Vitamin D3)) 400 Unit Tablet 400 Unit PO BID Fish Oil Conc 1,000 mg Softgel ([place]-3/Dha/Epa/Fish Oil) 1,000 Mg Capsule 3, 000 Mg PO DAILY Multiple Vitamin (Multivitamin With Minerals) 1 Each Tablet 1 Each PO Corzide 40-5 Tablet (Nadolol/Bendroflumethiazide) 1 Each Tablet 0.5 Tab PO DAILY Coenzyme Q10 (Ubidecarenone) 100 Mg Capsule 100 Mg PO DAILY Calcium (Calcium Carbonate) 600 Mg Tablet 600 Mg PO BID Vitals/I & O Vital Sign - Last 24 Hours 05/29/16 05/29/16 05/29/16 05/29/16 14:26 15:09 19:00 20:56 Temp 97.5 98.3 97.5 98.3 Pulse 84 87 Resp 18 20 20 B/P 145/65 134/76 Pulse Ox 97 94 O2 Delivery Room Air Room Air Room Air Room Air 05/29/16 05/29/16 05/29/16 05/30/16 20:56 22:00 23:01 03:00 Temp 98.1 97.8 98.1 97.8 Pulse 84 80 Resp 20 18 20 B/P 104/76 133/94 Pulse Ox 94 93 O2 Delivery Room Air Room Air Room Air Room Air 05/30/16 05/30/16 05/30/16 07:11 08:00 11:06 Temp 97.3 97.1 97.3 97.1 Pulse 99 89 Resp 21 20 B/P 150/81 137/82 Pulse Ox 94 97 O2 Delivery Room Air Room Air Room Air Intake and Output 05/29/16 05/29/16 05/30/16 15:00 23:00 07:00 Intake Total 600 ml 740 ml 3196 ml Balance 600 ml 740 ml 3196 ml MARCEL ENGLISH III DO May 30, 2016 12:59
[2016-05-30 15:00] VITALS: BP 140/76
[2016-05-30] MEDS: RIFAXIMIN 550 MG TABLET PO SCH ×2 (15:16→20:32)
[2016-05-30] MEDS: HYDROCODONE/APAP 5/325MG TABLET. PO PRN (16:17)
[2016-05-30 19:00] VITALS: BP 151/85
[2016-05-30 23:00] VITALS: BP 148/81
[2016-05-31 03:00] VITALS: BP 145/82
[2016-05-31 05:15] LABS: POTASSIUM 3.5 mmol/L (3.5-5.1)
[2016-05-31 05:28] LABS: BASO # 0.1 x10^3/uL (0.0-0.2); BASO % 1 % (0-3); EOS % 7 % (0-3); HEMATOCRIT 23.8 % (36.0-47.0); HEMOGLOBIN 8.1 g/dL (12.0-15.5); LYMPH # 1.4 x10^3/uL (1.0-4.8); LYMPH % 20 % (24-48); MEAN CORPUSCULAR HEMOGLOBIN 33 pg (25-35); MEAN CORPUSCULAR HGB CONC 34 g/dL (31-37); MEAN CORPUSCULAR VOLUME 98 fL (79-100); MONO % 19 % (0-9); NEUT % 54 % (31-73); PLATELET COUNT 92 x10^3/uL (140-400); RED BLOOD COUNT 2.44 x10^6/uL (3.50-5.40)
[2016-05-31] MEDS: PANTOPRAZOLE 40 MG TABLET. PO SCH (06:14)
[2016-05-31 07:00] VITALS: BP 147/86
[2016-05-31] MEDS: LACTULOSE 20 GM/30 ML SOLUTION. PO SCH ×2 (08:33→14:59)
[2016-05-31] MEDS: RIFAXIMIN 550 MG TABLET PO SCH ×2 (08:33→20:32)
[2016-05-31] MEDS ORDERED: LACTULOSE 20 GM/30 ML SOLUTION. PO SCH (09:00)
--- NOTE | 2016-05-31 09:43 | PDOC ---
G I PROGRESS NOTE Subjective Called yesterday re: dramatic "bump" in ammonia level. Lactulose increased to TID and added Xifaxan BID. Multiple stools overnight. I don't know baseline, but fairly oriented this AM. Says not daytime sleepiness, though slept poorly last noc. Physical Exam Lungs clear. RRR Abdomen soft, not tender nor distended. DTR's maybe slightly increased; faint asterixis. Review of Relevant I have reviewed the following items amy (where applicable) has been applied. Labs Laboratory Tests Test 05/29/16 12:08 05/30/16 04:50 05/30/16 11:15 05/31/16 04:10 Ammonia 60mcmol/L (11-34) 112mcmol/L (11-34) Tumor Marker Alpha Fetoprotein 3.2ng/mL (0.0-8.3) White Blood Count 6.6x10^3/uL (4.0-11.0) 7.0x10^3/uL (4.0-11.0) Red Blood Count 2.39x10^6/uL (3.50-5.40) 2.44x10^6/uL (3.50-5.40) Hemoglobin 7.8g/dL (12.0-15.5) 8.1g/dL (12.0-15.5) Hematocrit 23.4% (36.0-47.0) 23.8% (36.0-47.0) Mean Corpuscular Volume 98fL (79-100) 98fL (79-100) Mean Corpuscular Hemoglobin 33pg (25-35) 33pg (25-35) Mean Corpuscular Hemoglobin Concent 33g/dL (31-37) 34g/dL (31-37) Red Cell Distribution Width 18.9% (11.5-14.5) 19.0% (11.5-14.5) Platelet Count 83x10^3/uL (140-400) 92x10^3/uL (140-400) Neutrophils (%) (Auto) 55% (31-73) 54% (31-73) Lymphocytes (%) (Auto) 20% (24-48) 20% (24-48) Monocytes (%) (Auto) 19% (0-9) 19% (0-9) Eosinophils (%) (Auto) 5% (0-3) 7% (0-3) Basophils (%) (Auto) 1% (0-3) 1% (0-3) Neutrophils # (Auto) 3.6x10^3uL (1.8-7.7) 3.8x10^3uL (1.8-7.7) Lymphocytes # (Auto) 1.3x10^3/uL (1.0-4.8) 1.4x10^3/uL (1.0-4.8) Monocytes # (Auto) 1.2x10^3/uL (0.0-1.1) 1.3x10^3/uL (0.0-1.1) Eosinophils # (Auto) 0.4x10^3/uL (0.0-0.7) 0.5x10^3/uL (0.0-0.7) Basophils # (Auto) 0.1x10^3/uL (0.0-0.2) 0.1x10^3/uL (0.0-0.2) Sodium Level 141mmol/L (136-145) 142mmol/L (136-145) Potassium Level 3.9mmol/L (3.5-5.1) 3.5mmol/L (3.5-5.1) Chloride Level 109mmol/L (98-107) 110mmol/L (98-107) Carbon Dioxide Level 16mmol/L (21-32) 16mmol/L (21-32) Anion Gap 16 (6-14) 16 (6-14) Blood Urea Nitrogen 36mg/dL (7-20) 30mg/dL (7-20) Creatinine 4.1mg/dL (0.6-1.0) 4.0mg/dL (0.6-1.0) Estimated GFR (Cockcroft-Gault) 10.7 11.0 Glucose Level 103mg/dL (70-99) 90mg/dL (70-99) Calcium Level 8.8mg/dL (8.5-10.1) 9.0mg/dL (8.5-10.1) Test 05/31/16 08:00 Ammonia 51mcmol/L (11-34) Laboratory Tests Test 3/4/17 11:15 05/31/16 04:10 05/31/16 08:00 Ammonia 112mcmol/L (11-34) 51mcmol/L (11-34) White Blood Count 7.0x10^3/uL (4.0-11.0) Red Blood Count 2.44x10^6/uL (3.50-5.40) Hemoglobin 8.1g/dL (12.0-15.5) Hematocrit 23.8% (36.0-47.0) Mean Corpuscular Volume 98fL (79-100) Mean Corpuscular Hemoglobin 33pg (25-35) Mean Corpuscular Hemoglobin Concent 34g/dL (31-37) Red Cell Distribution Width 19.0% (11.5-14.5) Platelet Count 92x10^3/uL (140-400) Neutrophils (%) (Auto) 54% (31-73) Lymphocytes (%) (Auto) 20% (24-48) Monocytes (%) (Auto) 19% (0-9) Eosinophils (%) (Auto) 7% (0-3) Basophils (%) (Auto) 1% (0-3) Neutrophils # (Auto) 3.8x10^3uL (1.8-7.7) Lymphocytes # (Auto) 1.4x10^3/uL (1.0-4.8) Monocytes # (Auto) 1.3x10^3/uL (0.0-1.1) Eosinophils # (Auto) 0.5x10^3/uL (0.0-0.7) Basophils # (Auto) 0.1x10^3/uL (0.0-0.2) Sodium Level 142mmol/L (136-145) Potassium Level 3.5mmol/L (3.5-5.1) Chloride Level 110mmol/L (98-107) Carbon Dioxide Level 16mmol/L (21-32) Anion Gap 16 (6-14) Blood Urea Nitrogen 30mg/dL (7-20) Creatinine 4.0mg/dL (0.6-1.0) Estimated GFR (Cockcroft-Gault) 11.0 Glucose Level 90mg/dL (70-99) Calcium Level 9.0mg/dL (8.5-10.1) Microbiology 05/28/16 Blood Culture - Preliminary, Resulted NO GROWTH AFTER 2 DAYS --ammonia down this am. Medications Current Medications Sodium Chloride (Iv Sodium Chloride 0.9% 1000ml Bag) 1,000 ml @ 1,000 mls/hr 1X ONCE IV Last administered on 05/28/16 16:07; Start 05/28/16 at 15:45; Stop 05/28/16 at 16:44; Status DC Ondansetron HCl 4 mg 4 mg PRN Q8HRS PRN IV NAUSEA/VOMITING; Start 05/28/16 at 17 :15; Stop 05/29/16 at 09:22; Status DC Sodium Chloride (Iv Sodium Chloride 0.9% 1000ml Bag) 1,000 ml @ 125 mls/hr Q8H IV ; Start 05/28/16 at 17:07; Stop 05/28/16 at 18:38; Status DC Lactulose 20 gm 20 gm PRN BID PRN PO CONSTIPATION; Start 05/28/16 at 18:45; Stop 05/29/16 at 10:00; Status DC Sodium Chloride (Iv Sodium Chloride 0.9% 1000ml Bag) 1,000 ml @ 75 mls/hr [id number] IV Last administered on 05/30/16 23:58; Start 05/28/16 at 19:00 Acetaminophen (Tylenol) 325 mg PRN Q6HRS PRN PO MILD PAIN / TEMP; Start at 19:00 Acetaminophen/ Hydrocodone Bitart (Lortab 5/325) 1 tab PRN Q6HRS PRN PO MODERATE TO SEVERE PAIN Last administered on 05/30/16 16:17; Start 05/28/16 at 19 :00 Hydralazine HCl (Apresoline) 10 mg PRN Q4HRS PRN IVP ELEVATED BP, SEE COMMENTS ; Start 05/28/16 at 19:00 Ondansetron HCl (Zofran) 4 mg PRN Q8HRS PRN IV NAUSEA/VOMITING Last administered on 05/30/16 03:36; Start 05/28/16 at 19:00 Albuterol Sulfate (Ventolin Neb Soln) 2.5 mg PRN Q4HRS PRN NEB SHORTNESS OF BREATH; Start 05/28/16 at 19:00 Lactulose 20 gm BID PO Last administered on 05/30/16 08:29; Start 05/29/16 at 10 :00; Stop 05/30/16 at 14:43; Status DC Pantoprazole Sodium (Protonix) 40 mg DAILYAC PO Last administered on 05/31/16 06:14; Start 05/29/16 at 10:00 Lactulose 20 gm TID PO ; Start 05/31/16 at 09:00; Stop 05/31/16 at 09:00; Status DC Lactulose 20 gm TID PO Last administered on 05/31/16 08:33; Start 05/30/16 at 14 :45 Rifaximin (Xifaxan) 550 mg Q12HR PO Last administered on 05/31/16 08:33; Start 05/30/16 at 15:00 Active Scripts Active Pantoprazole Sodium 40 Mg Tablet.dr 40 Mg PO DAILYAC 30 Days Reported Neomycin Sulfate 500 Mg Tablet 1 Tab PO BID Spironolactone 50 Mg Tablet 1 Tab PO DAILY Mag-Oxide (Magnesium Oxide) 400 Mg Tablet 2 Tab PO BID Vitamin D3 (Cholecalciferol (Vitamin D3)) 400 Unit Tablet 400 Unit PO BID Fish Oil Conc 1,000 mg Softgel ([place]-3/Dha/Epa/Fish Oil) 1,000 Mg Capsule 3, 000 Mg PO DAILY Multiple Vitamin (Multivitamin With Minerals) 1 Each Tablet 1 Each PO Corzide 40-5 Tablet (Nadolol/Bendroflumethiazide) 1 Each Tablet 0.5 Tab PO DAILY Coenzyme Q10 (Ubidecarenone) 100 Mg Capsule 100 Mg PO DAILY Calcium (Calcium Carbonate) 600 Mg Tablet 600 Mg PO BID Vitals/I & O Vital Sign - Last 24 Hours 05/30/16 05/30/16 05/30/16 05/30/16 11:06 15:00 16:17 17:17 Temp 97.1 97.9 97.1 97.9 Pulse 89 82 Resp 20 18 B/P 137/82 140/76 Pulse Ox 97 98 98 98 O2 Delivery Room Air Room Air Room Air Room Air 05/30/16 05/30/16 05/30/16 05/31/16 19:00 20:00 23:00 03:00 Temp 98.1 97.9 97.5 98.1 97.9 97.5 Pulse 104 93 92 Resp 18 18 18 B/P 151/85 148/81 145/82 Pulse Ox 95 96 97 O2 Delivery Room Air Room Air Room Air Room Air 05/31/16 07:00 Temp 97.7 97.7 Pulse 78 B/P 147/86 Pulse Ox 98 O2 Delivery Room Air Intake and Output 05/30/16 05/30/16 05/31/16 15:00 23:00 07:00 Intake Total 360 ml 360 ml 1180 ml Output Total 400 ml 700 ml 600 ml Balance -40 ml -340 ml 580 ml Problem List Problems Medical Problems: (1) Altered mental status Status: Acute (2) Hyperammonemia Status: Acute Assessment PSE, baseline unclear to me but not flagrant today. Diarrhea from lactulose. Plan of Care Note Continue Xifaxan; note Neomycin listed as home med. If effective, this would be cheaper alternative. Decrease lactulose. ISH PACKER MD May 31, 2016 09:43
--- NOTE | 2016-05-31 10:13 | PDOC2 ---
Consultation Consultation Date and Time DATE: 05/31/16 TIME: 10:02 Consulting Physician: INGRID CONNER MD Speciality: Hematology Comments: for abnormal peripheral smear and anemia Date of Admission Date of Admission: May 28, 2016 at 16:51 Reason for Visit: altered mental status Source: patient Age Age: 71 Sex: Female History of Present Illness HPI 71 yo F c presumed EtOH cirrhosis who presented with altered mental status on 05/28/16. She was noted to be confused, with bili 2.2, albumin 2.5, hyperammonemia, new onset renal failure and stable anemia. GI was consulted 05/29/16 and recommended lactulose/rifaximin for hepatic encephalopathy We were asked to see her due to anemia with abnormal peripheral smear (rouleaux noted on CBC 05/30/16) . She states she is using the bathroom frequently due to the aforementioned meds. Vitals Vital Signs Vital Signs Date Time Temp Pulse Resp B/P Pulse Ox O2 Delivery O2 Flow Rate FiO2 05/31/16 08:00 Room Air 05/31/16 07:00 97.7 78 147/86 98 97.7 05/31/16 03:00 18 Past Medical History Cardiovascular: HTN, Hyperlipidemia GI: GERD, Other (pancreatitis, cirrhoses) Hepatobiliary: Cirrhosis Renal/: Acute renal failure Past Surgical History Past Surgical History: Appendectomy, Cholecystectomy Family History Family History: No pertinent hx Social History ALCOHOL: other (previous heavy use, sober since late 2015) Drugs: None Medicacation Home Meds Active Scripts Pantoprazole Sodium 40 Mg Tablet.dr40 Mg PO DAILYAC 30 Days Prov:ALOK JACKMAN MD 01/23/16 Reported Medications Neomycin Sulfate 500 Mg Tablet1 Tab PO BID #28 TAB 04/02/16 Spironolactone 50 Mg Tablet1 Tab PO DAILY #30 TAB Ref 5 04/02/16 Magnesium Oxide (Mag-Oxide)400 Mg Tablet2 Tab PO BID #60 TAB Ref 5 04/02/16 Cholecalciferol (Vitamin D3) (Vitamin D3)400 Unit [id number] Unit PO BID 09/04/15 [place]uddy-3/Dha/Epa/Fish Oil (Fish Oil Conc 1,000 mg Softgel)1,000 Mg Capsule3,000 Mg PO DAILY 09/04/15 Multivitamin With Minerals (Multiple Vitamin)1 Each Tablet1 Each PO 09/04/15 Nadolol/Bendroflumethiazide (Corzide 40-5 Tablet)1 Each Tablet0.5 Tab PO DAILY 09/04/15 Ubidecarenone (Coenzyme Q10)100 Mg [id number] Mg PO DAILY 03/13/13 Calcium Carbonate (Calcium)600 Mg [id number] Mg PO BID 03/13/13 Allergies Allergies: Coded Allergies: No Known Drug Allergies (Unverified , 03/13/13) Radiology Ultra-Sound 05/28/16 abdominal US shows no acute issue. no portal vein thrombus Laboratory Lab Results Sarabjit noted on CBC from 05/30/16 Review of LFTs from 05/28/16 (admit) show bili 2.2, albumin 2.5 with t prot 8.4, ast 73, alt 20, alk phos 189, INR 1.6 Laboratory Tests Test 05/30/16 11:15 05/31/16 04:10 05/31/16 08:00 Ammonia 112mcmol/L 51mcmol/L White Blood Count 7.0x10^3/uL Red Blood Count 2.44x10^6/uL Hemoglobin 8.1g/dL Hematocrit 23.8% Mean Corpuscular Volume 98fL Mean Corpuscular Hemoglobin 33pg Mean Corpuscular Hemoglobin Concent 34g/dL Red Cell Distribution Width 19.0% Platelet Count 92x10^3/uL Neutrophils (%) (Auto) 54% Lymphocytes (%) (Auto) 20% Monocytes (%) (Auto) 19% Eosinophils (%) (Auto) 7% Basophils (%) (Auto) 1% Neutrophils # (Auto) 3.8x10^3uL Lymphocytes # (Auto) 1.4x10^3/uL Monocytes # (Auto) 1.3x10^3/uL Eosinophils # (Auto) 0.5x10^3/uL Basophils # (Auto) 0.1x10^3/uL Sodium Level 142mmol/L Potassium Level 3.5mmol/L Chloride Level 110mmol/L Carbon Dioxide Level 16mmol/L Anion Gap 16 Blood Urea Nitrogen 30mg/dL Creatinine 4.0mg/dL Estimated GFR (Cockcroft-Gault) 11.0 Glucose Level 90mg/dL Calcium Level 9.0mg/dL Current Medications Medications (Trade) Dose Ordered Sig/Sherri Route PRN Reason Start Time Stop Time Status Last Admin Dose Admin Sodium Chloride (Iv Sodium Chloride 0.9% 1000ml Bag) 1,000 ml @ 1,000 mls/hr 1X ONCE IV 05/28/16 15:45 05/28/16 16:44 DC 05/28/16 16:07 Ondansetron HCl 4 mg 4 mg PRN Q8HRS PRN IV NAUSEA/VOMITING 05/28/16 17:15 05/29/16 09:22 DC Sodium Chloride (Iv Sodium Chloride 0.9% 1000ml Bag) 1,000 ml @ 125 mls/hr Q8H IV 05/28/16 17:07 05/28/16 18:38 DC Lactulose 20 gm 20 gm PRN BID PRN PO CONSTIPATION 05/28/16 18:45 05/29/16 10:00 DC Sodium Chloride (Iv Sodium Chloride 0.9% 1000ml Bag) 1,000 ml @ 75 mls/hr [id number] IV 05/28/16 19:00 05/30/16 23:58 Acetaminophen (Tylenol) 325 mg PRN Q6HRS PRN PO MILD PAIN / TEMP 05/28/16 19:00 Acetaminophen/ Hydrocodone Bitart (Lortab 5/325) 1 tab PRN Q6HRS PRN PO MODERATE TO SEVERE PAIN 05/28/16 19:00 05/30/16 16:17 Hydralazine HCl (Apresoline) 10 mg PRN Q4HRS PRN IVP ELEVATED BP, SEE COMMENTS 05/28/16 19:00 Ondansetron HCl (Zofran) 4 mg PRN Q8HRS PRN IV NAUSEA/VOMITING 05/28/16 19:00 05/30/16 03:36 Albuterol Sulfate (Ventolin Neb Soln) 2.5 mg PRN Q4HRS PRN NEB SHORTNESS OF BREATH 05/28/16 19:00 Lactulose 20 gm BID PO 05/29/16 10:00 05/30/16 14:43 DC 05/30/16 08:29 Pantoprazole Sodium (Protonix) 40 mg DAILYAC PO 05/29/16 10:00 05/31/16 06:14 Lactulose 20 gm TID PO 05/31/16 09:00 05/31/16 09:00 DC Lactulose 20 gm TID PO 05/30/16 14:45 05/31/16 09:45 DC 05/31/16 08:33 Rifaximin (Xifaxan) 550 mg Q12HR PO 05/30/16 15:00 05/31/16 08:33 Lactulose 20 gm BID92 PO 05/31/16 14:00 Laboratory Tests Test 05/30/16 11:15 05/31/16 04:10 05/31/16 08:00 Ammonia 112mcmol/L (11-34) 51mcmol/L (11-34) White Blood Count 7.0x10^3/uL (4.0-11.0) Red Blood Count 2.44x10^6/uL (3.50-5.40) Hemoglobin 8.1g/dL (12.0-15.5) Hematocrit 23.8% (36.0-47.0) Mean Corpuscular Volume 98fL (79-100) Mean Corpuscular Hemoglobin 33pg (25-35) Mean Corpuscular Hemoglobin Concent 34g/dL (31-37) Red Cell Distribution Width 19.0% (11.5-14.5) Platelet Count 92x10^3/uL (140-400) Neutrophils (%) (Auto) 54% (31-73) Lymphocytes (%) (Auto) 20% (24-48) Monocytes (%) (Auto) 19% (0-9) Eosinophils (%) (Auto) 7% (0-3) Basophils (%) (Auto) 1% (0-3) Neutrophils # (Auto) 3.8x10^3uL (1.8-7.7) Lymphocytes # (Auto) 1.4x10^3/uL (1.0-4.8) Monocytes # (Auto) 1.3x10^3/uL (0.0-1.1) Eosinophils # (Auto) 0.5x10^3/uL (0.0-0.7) Basophils # (Auto) 0.1x10^3/uL (0.0-0.2) Sodium Level 142mmol/L (136-145) Potassium Level 3.5mmol/L (3.5-5.1) Chloride Level 110mmol/L (98-107) Carbon Dioxide Level 16mmol/L (21-32) Anion Gap 16 (6-14) Blood Urea Nitrogen 30mg/dL (7-20) Creatinine 4.0mg/dL (0.6-1.0) Estimated GFR (Cockcroft-Gault) 11.0 Glucose Level 90mg/dL (70-99) Calcium Level 9.0mg/dL (8.5-10.1) Microbiology 05/28/16 Blood Culture - Preliminary, Resulted NO GROWTH AFTER 2 DAYS Review of Systems Constitutional: YES Weakness Gastrointestinal: Yes Diarrhea Neurological: Yes Confusion Physical Exams General Appearance: no apparent distress, thin, other (disoriented to date, place and year) Head: normal inspection Neck Exam: normal inspection Respiratory: normal inspection, normal breath sounds Cardiovascular/Chest: normal inspection, regular rate, rhythm Abdominal Exam: normal inspection, non tender, soft Motor/Sensory: normal sensory function, other (no asterixis) Mental Status: alert, disoriented Appearance: appropriate appearance Eye contact: cooperative Skin Exam: normal inspection Assessment Comments 71 yo F c cirrhosis, acute renal failure with proteinuria, anemia and thrombocytopenia with Rouleaux noted on CBC yesterday, protein gap, metabolic acidosis, confusion (waxing and waning per nurse). Plan Comments Although I suspect this to be related to underlying liver disease (hepatorenal syndrome?), recommend checking myeloma and hemolysis lab work-up. I have ordered the following: spep, upep, kappa/lambda light chains, ig g, ig a, ig m, ldh, hapto, fibrinogen , repeat coags. I think it would be lopez to get nephrology team involved too, as her renal function is not improving, despite fluids. If this is underlying myeloma, not sure how much we would be able to offer her in her current state, due to altered mental health and deconditioning. INGRID CONNER MD May 31, 2016 10:13
[2016-05-31 11:00] VITALS: BP 141/87
[2016-05-31 11:10] LABS: INR 1.8 (0.8-1.1); PROTHROMBIN TIME PATIENT 19.7 SEC (11.7-14.0)
[2016-05-31] MEDS: IV NORMAL SALINE 1000ML BAG 1,000 ML IV SCH (13:40)
--- NOTE | 2016-05-31 13:58 | PDOC ---
PROGRESS NOTES Chief Complaint Chief Complaint Altered mental status, hyperammonemia 1. Encephalopathy, possible metabolic, hepatic. 2. Acute kidney injury. 3. Metabolic acidosis. 4. Thrombocytopenia. 5. Anemia, chronic. 6. Hyperbilirubinemia. 7. Alcoholism. History of Present Illness History of Present Illness Patient lying in bed when evaluated this AM. No longer assigned a 1:1 sitter, as pt has showed less restlessness. Had a spike in ammonia level yesterday 112. Lactulose was increased and ammonia level has come back down. Pt reported diarrhea 2/2 to lactulose increase. Per oncology note- pt's daughter confirms that patient has been drinking up until admission. Pt had previously claimed to having been a couple months sober. Vitals Vitals Vital Signs Date Time Temp Pulse Resp B/P Pulse Ox O2 Delivery O2 Flow Rate FiO2 05/31/16 11:00 97.4 90 20 141/87 96 Room Air 97.4 Physical Exam General: No acute distress, Other (confused, not oriented to time) Heart: Regular rate, Normal S1, No murmurs Lungs: Clear Abdomen: Soft, No tenderness, Other (no ascites) Extremities: No edema Skin: No significant lesion Labs LABS Laboratory Tests Test 05/31/16 04:10 05/31/16 08:00 05/31/16 10:50 White Blood Count 7.0x10^3/uL (4.0-11.0) Red Blood Count 2.44x10^6/uL (3.50-5.40) Hemoglobin 8.1g/dL (12.0-15.5) Hematocrit 23.8% (36.0-47.0) Mean Corpuscular Volume 98fL (79-100) Mean Corpuscular Hemoglobin 33pg (25-35) Mean Corpuscular Hemoglobin Concent 34g/dL (31-37) Red Cell Distribution Width 19.0% (11.5-14.5) Platelet Count 92x10^3/uL (140-400) Neutrophils (%) (Auto) 54% (31-73) Lymphocytes (%) (Auto) 20% (24-48) Monocytes (%) (Auto) 19% (0-9) Eosinophils (%) (Auto) 7% (0-3) Basophils (%) (Auto) 1% (0-3) Neutrophils # (Auto) 3.8x10^3uL (1.8-7.7) Lymphocytes # (Auto) 1.4x10^3/uL (1.0-4.8) Monocytes # (Auto) 1.3x10^3/uL (0.0-1.1) Eosinophils # (Auto) 0.5x10^3/uL (0.0-0.7) Basophils # (Auto) 0.1x10^3/uL (0.0-0.2) Sodium Level 142mmol/L (136-145) Potassium Level 3.5mmol/L (3.5-5.1) Chloride Level 110mmol/L (98-107) Carbon Dioxide Level 16mmol/L (21-32) Anion Gap 16 (6-14) Blood Urea Nitrogen 30mg/dL (7-20) Creatinine 4.0mg/dL (0.6-1.0) Estimated GFR (Cockcroft-Gault) 11.0 Glucose Level 90mg/dL (70-99) Calcium Level 9.0mg/dL (8.5-10.1) Ammonia 51mcmol/L (11-34) Prothrombin Time 19.7SEC (11.7-14.0) Prothromb Time International Ratio 1.8 (0.8-1.1) Activated Partial Thromboplast Time 50SEC (24-38) Fibrinogen 160mg/dL (200-440) Lactate Dehydrogenase 266U/L (81-234) Review of Systems Review of Systems confusion, intermittent; poor historian- limits ROS denies fever, chills Assessment and Plan Assessmemt and Plan ASSESSMENT: - Altered mental status, hyperammonemia - Encephalopathy, possible metabolic, hepatic. - Acute kidney injury. - Metabolic acidosis. - Thrombocytopenia. - Anemia, chronic. - Hyperbilirubinemia. - Alcoholism - Abnormal peripheral smear, ?Myeloma PLAN: - consulting Nephrology for acute renal failure - Hem/Onc workup in progress for abnormal peripheral smear and anemia (+ rouleaux formations, Hgb 8.1), appreciate input - GI following, appreciate input - SW reporting that pt will resume [facility] when discharged. - cont prn lactulose - cont to monitor ammonia. (51 improved from 112, with increase in lactulose dosing) - discontinued 1:1 observation - PTOT - cont IVF - discharge disposition pending. Problems: Comment Review of Relevant I have reviewed the following items amy (where applicable) has been applied. Labs Laboratory Tests Test 05/30/16 04:50 05/30/16 11:15 05/31/16 04:10 05/31/16 08:00 White Blood Count 6.6x10^3/uL (4.0-11.0) 7.0x10^3/uL (4.0-11.0) Red Blood Count 2.39x10^6/uL (3.50-5.40) 2.44x10^6/uL (3.50-5.40) Hemoglobin 7.8g/dL (12.0-15.5) 8.1g/dL (12.0-15.5) Hematocrit 23.4% (36.0-47.0) 23.8% (36.0-47.0) Mean Corpuscular Volume 98fL (79-100) 98fL (79-100) Mean Corpuscular Hemoglobin 33pg (25-35) 33pg (25-35) Mean Corpuscular Hemoglobin Concent 33g/dL (31-37) 34g/dL (31-37) Red Cell Distribution Width 18.9% (11.5-14.5) 19.0% (11.5-14.5) Platelet Count 83x10^3/uL (140-400) 92x10^3/uL (140-400) Neutrophils (%) (Auto) 55% (31-73) 54% (31-73) Lymphocytes (%) (Auto) 20% (24-48) 20% (24-48) Monocytes (%) (Auto) 19% (0-9) 19% (0-9) Eosinophils (%) (Auto) 5% (0-3) 7% (0-3) Basophils (%) (Auto) 1% (0-3) 1% (0-3) Neutrophils # (Auto) 3.6x10^3uL (1.8-7.7) 3.8x10^3uL (1.8-7.7) Lymphocytes # (Auto) 1.3x10^3/uL (1.0-4.8) 1.4x10^3/uL (1.0-4.8) Monocytes # (Auto) 1.2x10^3/uL (0.0-1.1) 1.3x10^3/uL (0.0-1.1) Eosinophils # (Auto) 0.4x10^3/uL (0.0-0.7) 0.5x10^3/uL (0.0-0.7) Basophils # (Auto) 0.1x10^3/uL (0.0-0.2) 0.1x10^3/uL (0.0-0.2) Sodium Level 141mmol/L (136-145) 142mmol/L (136-145) Potassium Level 3.9mmol/L (3.5-5.1) 3.5mmol/L (3.5-5.1) Chloride Level 109mmol/L (98-107) 110mmol/L (98-107) Carbon Dioxide Level 16mmol/L (21-32) 16mmol/L (21-32) Anion Gap 16 (6-14) 16 (6-14) Blood Urea Nitrogen 36mg/dL (7-20) 30mg/dL (7-20) Creatinine 4.1mg/dL (0.6-1.0) 4.0mg/dL (0.6-1.0) Estimated GFR (Cockcroft-Gault) 10.7 11.0 Glucose Level 103mg/dL (70-99) 90mg/dL (70-99) Calcium Level 8.8mg/dL (8.5-10.1) 9.0mg/dL (8.5-10.1) Ammonia 112mcmol/L (11-34) 51mcmol/L (11-34) Test 05/31/16 10:50 Prothrombin Time 19.7SEC (11.7-14.0) Prothromb Time International Ratio 1.8 (0.8-1.1) Activated Partial Thromboplast Time 50SEC (24-38) Fibrinogen 160mg/dL (200-440) Lactate Dehydrogenase 266U/L (81-234) Laboratory Tests Test 05/31/16 04:10 05/31/16 08:00 05/31/16 10:50 White Blood Count 7.0x10^3/uL (4.0-11.0) Red Blood Count 2.44x10^6/uL (3.50-5.40) Hemoglobin 8.1g/dL (12.0-15.5) Hematocrit 23.8% (36.0-47.0) Mean Corpuscular Volume 98fL (79-100) Mean Corpuscular Hemoglobin 33pg (25-35) Mean Corpuscular Hemoglobin Concent 34g/dL (31-37) Red Cell Distribution Width 19.0% (11.5-14.5) Platelet Count 92x10^3/uL (140-400) Neutrophils (%) (Auto) 54% (31-73) Lymphocytes (%) (Auto) 20% (24-48) Monocytes (%) (Auto) 19% (0-9) Eosinophils (%) (Auto) 7% (0-3) Basophils (%) (Auto) 1% (0-3) Neutrophils # (Auto) 3.8x10^3uL (1.8-7.7) Lymphocytes # (Auto) 1.4x10^3/uL (1.0-4.8) Monocytes # (Auto) 1.3x10^3/uL (0.0-1.1) Eosinophils # (Auto) 0.5x10^3/uL (0.0-0.7) Basophils # (Auto) 0.1x10^3/uL (0.0-0.2) Sodium Level 142mmol/L (136-145) Potassium Level 3.5mmol/L (3.5-5.1) Chloride Level 110mmol/L (98-107) Carbon Dioxide Level 16mmol/L (21-32) Anion Gap 16 (6-14) Blood Urea Nitrogen 30mg/dL (7-20) Creatinine 4.0mg/dL (0.6-1.0) Estimated GFR (Cockcroft-Gault) 11.0 Glucose Level 90mg/dL (70-99) Calcium Level 9.0mg/dL (8.5-10.1) Ammonia 51mcmol/L (11-34) Prothrombin Time 19.7SEC (11.7-14.0) Prothromb Time International Ratio 1.8 (0.8-1.1) Activated Partial Thromboplast Time 50SEC (24-38) Fibrinogen 160mg/dL (200-440) Lactate Dehydrogenase 266U/L (81-234) Microbiology 05/28/16 Blood Culture - Preliminary, Resulted NO GROWTH AFTER 2 DAYS Medications Current Medications Sodium Chloride (Iv Sodium Chloride 0.9% 1000ml Bag) 1,000 ml @ 1,000 mls/hr 1X ONCE IV Last administered on 05/28/16 16:07; Start 05/28/16 at 15:45; Stop 05/28/16 at 16:44; Status DC Ondansetron HCl 4 mg 4 mg PRN Q8HRS PRN IV NAUSEA/VOMITING; Start 05/28/16 at 17 :15; Stop 05/29/16 at 09:22; Status DC Sodium Chloride (Iv Sodium Chloride 0.9% 1000ml Bag) 1,000 ml @ 125 mls/hr Q8H IV ; Start 05/28/16 at 17:07; Stop 05/28/16 at 18:38; Status DC Lactulose 20 gm 20 gm PRN BID PRN PO CONSTIPATION; Start 05/28/16 at 18:45; Stop 05/29/16 at 10:00; Status DC Sodium Chloride (Iv Sodium Chloride 0.9% 1000ml Bag) 1,000 ml @ 75 mls/hr [id number] IV Last administered on 05/30/16 23:58; Start 05/28/16 at 19:00 Acetaminophen (Tylenol) 325 mg PRN Q6HRS PRN PO MILD PAIN / TEMP; Start at 19:00 Acetaminophen/ Hydrocodone Bitart (Lortab 5/325) 1 tab PRN Q6HRS PRN PO MODERATE TO SEVERE PAIN Last administered on 05/30/16 16:17; Start 05/28/16 at 19 :00 Hydralazine HCl (Apresoline) 10 mg PRN Q4HRS PRN IVP ELEVATED BP, SEE COMMENTS ; Start 05/28/16 at 19:00 Ondansetron HCl (Zofran) 4 mg PRN Q8HRS PRN IV NAUSEA/VOMITING Last administered on 05/30/16 03:36; Start 05/28/16 at 19:00 Albuterol Sulfate (Ventolin Neb Soln) 2.5 mg PRN Q4HRS PRN NEB SHORTNESS OF BREATH; Start 05/28/16 at 19:00 Lactulose 20 gm BID PO Last administered on 05/30/16 08:29; Start 05/29/16 at 10 :00; Stop 05/30/16 at 14:43; Status DC Pantoprazole Sodium (Protonix) 40 mg DAILYAC PO Last administered on 05/31/16 06:14; Start 05/29/16 at 10:00 Lactulose 20 gm TID PO ; Start 05/31/16 at 09:00; Stop 05/31/16 at 09:00; Status DC Lactulose 20 gm TID PO Last administered on 05/31/16 08:33; Start 05/30/16 at 14 :45; Stop 05/31/16 at 09:45; Status DC Rifaximin (Xifaxan) 550 mg Q12HR PO Last administered on 05/31/16 08:33; Start 05/30/16 at 15:00 Lactulose 20 gm BID92 PO ; Start 05/31/16 at 14:00 Active Scripts Active Pantoprazole Sodium 40 Mg Tablet.dr 40 Mg PO DAILYAC 30 Days Reported Neomycin Sulfate 500 Mg Tablet 1 Tab PO BID Spironolactone 50 Mg Tablet 1 Tab PO DAILY Mag-Oxide (Magnesium Oxide) 400 Mg Tablet 2 Tab PO BID Vitamin D3 (Cholecalciferol (Vitamin D3)) 400 Unit Tablet 400 Unit PO BID Fish Oil Conc 1,000 mg Softgel ([place]-3/Dha/Epa/Fish Oil) 1,000 Mg Capsule 3, 000 Mg PO DAILY Multiple Vitamin (Multivitamin With Minerals) 1 Each Tablet 1 Each PO Corzide 40-5 Tablet (Nadolol/Bendroflumethiazide) 1 Each Tablet 0.5 Tab PO DAILY Coenzyme Q10 (Ubidecarenone) 100 Mg Capsule 100 Mg PO DAILY Calcium (Calcium Carbonate) 600 Mg Tablet 600 Mg PO BID Vitals/I & O Vital Sign - Last 24 Hours 05/30/16 05/30/16 05/30/16 05/30/16 15:00 16:17 17:17 19:00 Temp 97.9 98.1 97.9 98.1 Pulse 82 104 Resp 18 18 B/P 140/76 151/85 Pulse Ox 98 98 98 95 O2 Delivery Room Air Room Air Room Air Room Air 05/30/16 05/30/16 05/31/16 05/31/16 20:00 23:00 03:00 07:00 Temp 97.9 97.5 97.7 97.9 97.5 97.7 Pulse 93 92 78 Resp 18 18 B/P 148/81 145/82 147/86 Pulse Ox 96 97 98 O2 Delivery Room Air Room Air Room Air Room Air 05/31/16 05/31/16 08:00 11:00 Temp 97.4 97.4 Pulse 90 Resp 20 B/P 141/87 Pulse Ox 96 O2 Delivery Room Air Room Air Intake and Output 05/30/16 05/30/16 05/31/16 15:00 23:00 07:00 Intake Total 360 ml 360 ml 1180 ml Output Total 400 ml 700 ml 600 ml Balance -40 ml -340 ml 580 ml MARCEL ENGLISH III DO May 31, 2016 13:58
[2016-05-31] MEDS: HYDROCODONE/APAP 5/325MG TABLET. PO PRN ×2 (14:59→20:32)
[2016-05-31 15:00] VITALS: BP 136/89
[2016-05-31 19:00] VITALS: BP 143/80
[2016-05-31 23:00] VITALS: BP 148/78
[2016-05-31 23:13] LABS: HAPTOGLOBIN 29 mg/dL (34-200)
[2016-06-01] MEDS: IV NORMAL SALINE 1000ML BAG 1,000 ML IV SCH (01:26)
[2016-06-01 03:00] VITALS: BP 123/72
[2016-06-01 06:35] LABS: CALCIUM 8.7 mg/dL (8.5-10.1); CREATININE 3.9 mg/dL (0.6-1.0); GFR 11.3; POTASSIUM 3.5 mmol/L (3.5-5.1)
[2016-06-01 06:41] LABS: BASO # 0.1 x10^3/uL (0.0-0.2); BASO % 1 % (0-3); EOS % 5 % (0-3); HEMATOCRIT 22.7 % (36.0-47.0); HEMOGLOBIN 7.8 g/dL (12.0-15.5); LYMPH # 1.4 x10^3/uL (1.0-4.8); LYMPH % 18 % (24-48); MEAN CORPUSCULAR HEMOGLOBIN 33 pg (25-35); MEAN CORPUSCULAR HGB CONC 34 g/dL (31-37); MEAN CORPUSCULAR VOLUME 97 fL (79-100); MONO % 15 % (0-9); NEUT % 62 % (31-73); PLATELET COUNT 93 x10^3/uL (140-400); RED BLOOD COUNT 2.33 x10^6/uL (3.50-5.40); WHITE BLOOD COUNT 8.1 x10^3/uL (4.0-11.0)
[2016-06-01 07:00] VITALS: BP 137/87
[2016-06-01 07:27] LABS: % SAT IRON 60 % (15-34); IRON,SERUM 81 ug/dL (50-170)
--- NOTE | 2016-06-01 07:34 | CONS ---
DATE OF CONSULTATION: REQUESTING PHYSICIAN: Hospitalist. REASON FOR CONSULTATION: Renal failure. HISTORY OF PRESENT ILLNESS: This is a 71-year-old female with history of alcoholic cirrhosis. She is currently admitted with progressive hepatic dysfunction with elevated ammonia level. She also was found to have renal failure. The patient has apparently been sober since late 2015. The patient denies difficulty urination, nephrolithiasis or gross hematuria. She rarely uses NSEDs prior to admission. She has no diabetes mellitus. She does have history of hypertension. PAST MEDICAL HISTORY: Alcoholism, pancreatitis, alcoholic cirrhosis, hypertension, hyperlipidemia, COPD, pancreatitis, gastroesophageal reflux disease, cholecystectomy, appendectomy, Billroth-II, back surgery. ALLERGIES: None. MEDICATIONS: Noted. FAMILY HISTORY: Noncontributory. SOCIAL HISTORY: The patient has attending family at the bedside. REVIEW OF SYSTEMS: No headaches, sinus problem, nasal drainage, epistaxis, change in vision or hearing, no difficulty swallowing. No fever, chills, cough, sputum production, or hemoptysis. No chest pain, shortness of breath, PND, orthopnea or dyspnea on exertion. No abdominal pain or upper or lower gastrointestinal blood loss. No nausea, vomiting, diarrhea, seizures or malignancies. She has weakness. PHYSICAL EXAMINATION: GENERAL: The patient awake, conversant. HEENT: Bitemporal wasting ____. NECK: No increased JVD. No thyromegaly or mass. LUNGS: Clear. CARDIAC: Without S3 or rub. ABDOMEN: Flat. Nontender. No ascites present. EXTREMITIES: Without edema. Diffuse muscle wasting. NEUROLOGIC: Nonfocal, no localizing. PSYCHIATRIC: Good attention to detail, appropriate affect. LABORATORY DATA: Hemoglobin 8.1, hematocrit 23.8, white count 7, platelets are 92. Sodium 142, potassium 3.5, chloride 110, CO2 of 16, BUN 30, creatinine 4, ____ 11, calcium 9, INR 1.8, PTT is 50, fibrinogen 160. IMPRESSION: 1. Renal failure -- acute versus chronic. ____ likely prerenal state with dehydration. We will need to follow urine output. If she is anuric, would be concern for hepatorenal syndrome 2. Metabolic acidosis. RECOMMENDATIONS: IV fluid administration, follow response as you are doing, further diagnostic studies. Pending results of the same. ISH SHAFFER MD DR: ARIN/gerda JOB#: [id number] / [id number]
[2016-06-01 07:45] LABS: DIRECT BILIRUBIN 0.8 mg/dL (0.0-0.2); TOTAL BILIRUBIN 1.8 mg/dL (0.2-1.0); TOTAL PROTEIN 6.2 g/dL (6.4-8.2)
[2016-06-01] MEDS: HYDROCODONE/APAP 5/325MG TABLET. PO PRN ×3 (08:26→21:01)
[2016-06-01] MEDS: PANTOPRAZOLE 40 MG TABLET. PO SCH (08:27)
[2016-06-01] MEDS: RIFAXIMIN 550 MG TABLET PO SCH ×3 (08:28→21:02)
[2016-06-01] MEDS: LACTULOSE 20 GM/30 ML SOLUTION. PO SCH ×2 (09:00→14:00)
--- NOTE | 2016-06-01 09:31 | PDOC ---
Subjective: Subjective: Onc f/u- Anemia, thrombocytopenia Pt states again to me this AM that she has not had any EtOH for years. No abd pain, SOB, chest pain. No new changes. Seems alert this AM. Objective: Vital Signs: Vital Signs Date Time Temp Pulse Resp B/P Pulse Ox O2 Delivery O2 Flow Rate FiO2 06/01/16 08:26 94 Room Air 06/01/16 07:00 96.6 103 19 137/87 96.6 Physical Exam: Heart: Regular rate Extremities: No edema General: Alert, Oriented X3, Cooperative, No acute distress Lungs: Clear to auscultation, Normal air movement Psych/Mental Status: Mental status NL, Mood NL Skin: Other (no bruising) Labs/Imaging: CBC stable hapto 29 SPEP, SIFE, SLFC ratio pending Iron labs ordered- WNL B12, folate, hepatitis pending Assessment/Plan A/P: 71 yo F with: 1. Anemia, initial macrocytic now normocytic- Stable. Rouleaux formation initially on smear. 2. Thrombocytopenia, plt ~ 90- stable 3. Mildly low haptoglobin- Likely due to liver d/f from alcohol. No evidence of hemolysis. 4. Acute vs chronic kidney disease 5. Ho alcohol abuse up to admission per daughter; pt denies 6. Initial altered mental status with increased ammonia level- Improved Plan: - F/u renal recs - F/u pending SPEP, SIFE, SFLC ratio - F/u B12, folate, hepatitis panel, Epo - Suspect cytopenias related to alcohol abuse; continue to monitor and hold on further eval unless counts continue to drop. NAVEED SEPULVEDA DO Jun 01, 2016 09:31
[2016-06-01 10:24] LABS: FOLATE 13.22 ng/ml (3.2-20.0)
[2016-06-01 10:45] VITALS: BP 139/80
--- NOTE | 2016-06-01 11:34 | PDOC ---
Subjective: Subjective: No GI complaints other than "too many stools." Objective: Objective: Per RN - refused lactulose this morning. Leakage of stool. Vital Signs: Vital Signs Date Time Temp Pulse Resp B/P Pulse Ox O2 Delivery O2 Flow Rate FiO2 06/01/16 10:45 97.7 82 19 139/80 95 Room Air 97.7 Labs: Laboratory Tests Test 05/31/16 17:12 06/01/16 05:20 Glucose (Fingerstick) 107mg/dL White Blood Count 8.1x10^3/uL Red Blood Count 2.33x10^6/uL Hemoglobin 7.8g/dL Hematocrit 22.7% Mean Corpuscular Volume 97fL Mean Corpuscular Hemoglobin 33pg Mean Corpuscular Hemoglobin Concent 34g/dL Red Cell Distribution Width 19.0% Platelet Count 93x10^3/uL Neutrophils (%) (Auto) 62% Lymphocytes (%) (Auto) 18% Monocytes (%) (Auto) 15% Eosinophils (%) (Auto) 5% Basophils (%) (Auto) 1% Neutrophils # (Auto) 5.0x10^3uL Lymphocytes # (Auto) 1.4x10^3/uL Monocytes # (Auto) 1.2x10^3/uL Eosinophils # (Auto) 0.4x10^3/uL Basophils # (Auto) 0.1x10^3/uL Sodium Level 141mmol/L Potassium Level 3.5mmol/L Chloride Level 110mmol/L Carbon Dioxide Level 16mmol/L Anion Gap 15 Blood Urea Nitrogen 29mg/dL Creatinine 3.9mg/dL Estimated GFR (Cockcroft-Gault) 11.3 Glucose Level 88mg/dL Calcium Level 8.7mg/dL Iron Level 81ug/dL Total Iron Binding Capacity 136ug/dL Iron Saturation 60% Ferritin 303ng/mL Total Bilirubin 1.8mg/dL Direct Bilirubin 0.8mg/dL Aspartate Amino Transf (AST/SGOT) 63U/L Alanine Aminotransferase (ALT/SGPT) 20U/L Alkaline Phosphatase 146U/L Total Protein 6.2g/dL Albumin 2.0g/dL Vitamin B12 Level 1273pg/mL Serum Folate 13.22ng/ml Imaging: Doppler US 05/29/16 IMPRESSION: The hepatic vasculature is unremarkable. PE: GEN: NAD LUNGS: CTAB HEART: RRR ABD: NABS, S/ND/NT NEURO/PSYCH: tells me correct month, incorrect year, still can't recall President A/P: Hyperammonemia - improved -alcoholic cirrhosis - pt reports sobriety, family apparently says otherwise -CT in 01/2016 showed nodular liver (cirrhosis), Doppler 05/2016 unrevealing, AFP WNL -on lactulose and Xifaxin BID, multiple loose stools -still confused H/o Billroth II, GERD -last EGD 12/2015, on PPI Anemia/thrombocytopenia -Dr. Lindsey following -no obvious bleeding -- Continue same per GI. IVY BETH Jun 01, 2016 11:34
--- NOTE | 2016-06-01 13:15 | PDOC ---
PROGRESS NOTES Chief Complaint Chief Complaint Altered mental status, hyperammonemia 1. Encephalopathy, possible metabolic, hepatic. 2. Acute kidney injury. 3. Metabolic acidosis. 4. Thrombocytopenia 2/2 cirrhosis likely 5. Anemia, chronic. 6. Hyperbilirubinemia. 7. Alcoholism. 8. high INR 2/2 CIrrohsis likely plan 1. fu with renal, onco 2. fu with labs ordered for onco 3. ivf 4. monitor Cr PTOT SW, may need snf cont rifaxin, cont lactulose to keep BM 2-3 times a day History of Present Illness History of Present Illness Patient lying in bed when evaluated this AM. No longer assigned a 1:1 sitter, as pt has showed less restlessness. Had a spike in ammonia level yesterday 112. Lactulose was increased and ammonia level has come back down. Pt reported diarrhea 2/2 to lactulose increase. Per oncology note- pt's daughter confirms that patient has been drinking up until admission. Pt had previously claimed to having been a couple months sober. Vitals Vitals Vital Signs Date Time Temp Pulse Resp B/P Pulse Ox O2 Delivery O2 Flow Rate FiO2 06/01/16 10:45 97.7 82 19 139/80 95 Room Air 97.7 Physical Exam General: Alert, Oriented X3, Cooperative, No acute distress Heart: Regular rate Lungs: Clear Abdomen: Soft, No tenderness, Other (no ascites) Extremities: No edema Skin: Other (no bruising) Labs LABS Laboratory Tests Test 05/31/16 17:12 06/01/16 05:20 Glucose (Fingerstick) 107mg/dL (70-99) White Blood Count 8.1x10^3/uL (4.0-11.0) Red Blood Count 2.33x10^6/uL (3.50-5.40) Hemoglobin 7.8g/dL (12.0-15.5) Hematocrit 22.7% (36.0-47.0) Mean Corpuscular Volume 97fL (79-100) Mean Corpuscular Hemoglobin 33pg (25-35) Mean Corpuscular Hemoglobin Concent 34g/dL (31-37) Red Cell Distribution Width 19.0% (11.5-14.5) Platelet Count 93x10^3/uL (140-400) Neutrophils (%) (Auto) 62% (31-73) Lymphocytes (%) (Auto) 18% (24-48) Monocytes (%) (Auto) 15% (0-9) Eosinophils (%) (Auto) 5% (0-3) Basophils (%) (Auto) 1% (0-3) Neutrophils # (Auto) 5.0x10^3uL (1.8-7.7) Lymphocytes # (Auto) 1.4x10^3/uL (1.0-4.8) Monocytes # (Auto) 1.2x10^3/uL (0.0-1.1) Eosinophils # (Auto) 0.4x10^3/uL (0.0-0.7) Basophils # (Auto) 0.1x10^3/uL (0.0-0.2) Sodium Level 141mmol/L (136-145) Potassium Level 3.5mmol/L (3.5-5.1) Chloride Level 110mmol/L (98-107) Carbon Dioxide Level 16mmol/L (21-32) Anion Gap 15 (6-14) Blood Urea Nitrogen 29mg/dL (7-20) Creatinine 3.9mg/dL (0.6-1.0) Estimated GFR (Cockcroft-Gault) 11.3 Glucose Level 88mg/dL (70-99) Calcium Level 8.7mg/dL (8.5-10.1) Iron Level 81ug/dL (50-170) Total Iron Binding Capacity 136ug/dL (250-450) Iron Saturation 60% (15-34) Ferritin 303ng/mL (8-252) Total Bilirubin 1.8mg/dL (0.2-1.0) Direct Bilirubin 0.8mg/dL (0.0-0.2) Aspartate Amino Transf (AST/SGOT) 63U/L (15-37) Alanine Aminotransferase (ALT/SGPT) 20U/L (14-59) Alkaline Phosphatase 146U/L (46-116) Total Protein 6.2g/dL (6.4-8.2) Albumin 2.0g/dL (3.4-5.0) Vitamin B12 Level 1273pg/mL (247-911) Serum Folate 13.22ng/ml (3.2-20.0) Review of Systems Review of Systems no fever, chills, sob or chest pain Assessment and Plan Assessmemt and Plan Problems Medical Problems: (1) Altered mental status Status: Acute (2) Hyperammonemia Status: Acute Problems: Comment Review of Relevant I have reviewed the following items amy (where applicable) has been applied. Labs Laboratory Tests Test 05/31/16 04:10 05/31/16 08:00 05/31/16 10:50 05/31/16 17:12 White Blood Count 7.0x10^3/uL (4.0-11.0) Red Blood Count 2.44x10^6/uL (3.50-5.40) Hemoglobin 8.1g/dL (12.0-15.5) Hematocrit 23.8% (36.0-47.0) Mean Corpuscular Volume 98fL (79-100) Mean Corpuscular Hemoglobin 33pg (25-35) Mean Corpuscular Hemoglobin Concent 34g/dL (31-37) Red Cell Distribution Width 19.0% (11.5-14.5) Platelet Count 92x10^3/uL (140-400) Neutrophils (%) (Auto) 54% (31-73) Lymphocytes (%) (Auto) 20% (24-48) Monocytes (%) (Auto) 19% (0-9) Eosinophils (%) (Auto) 7% (0-3) Basophils (%) (Auto) 1% (0-3) Neutrophils # (Auto) 3.8x10^3uL (1.8-7.7) Lymphocytes # (Auto) 1.4x10^3/uL (1.0-4.8) Monocytes # (Auto) 1.3x10^3/uL (0.0-1.1) Eosinophils # (Auto) 0.5x10^3/uL (0.0-0.7) Basophils # (Auto) 0.1x10^3/uL (0.0-0.2) Sodium Level 142mmol/L (136-145) Potassium Level 3.5mmol/L (3.5-5.1) Chloride Level 110mmol/L (98-107) Carbon Dioxide Level 16mmol/L (21-32) Anion Gap 16 (6-14) Blood Urea Nitrogen 30mg/dL (7-20) Creatinine 4.0mg/dL (0.6-1.0) Estimated GFR (Cockcroft-Gault) 11.0 Glucose Level 90mg/dL (70-99) Calcium Level 9.0mg/dL (8.5-10.1) Ammonia 51mcmol/L (11-34) Haptoglobin 29mg/dL (34-200) Prothrombin Time 19.7SEC (11.7-14.0) Prothromb Time International Ratio 1.8 (0.8-1.1) Activated Partial Thromboplast Time 50SEC (24-38) Fibrinogen 160mg/dL (200-440) Lactate Dehydrogenase 266U/L (81-234) Glucose (Fingerstick) 107mg/dL (70-99) Test 06/01/16 05:20 White Blood Count 8.1x10^3/uL (4.0-11.0) Red Blood Count 2.33x10^6/uL (3.50-5.40) Hemoglobin 7.8g/dL (12.0-15.5) Hematocrit 22.7% (36.0-47.0) Mean Corpuscular Volume 97fL (79-100) Mean Corpuscular Hemoglobin 33pg (25-35) Mean Corpuscular Hemoglobin Concent 34g/dL (31-37) Red Cell Distribution Width 19.0% (11.5-14.5) Platelet Count 93x10^3/uL (140-400) Neutrophils (%) (Auto) 62% (31-73) Lymphocytes (%) (Auto) 18% (24-48) Monocytes (%) (Auto) 15% (0-9) Eosinophils (%) (Auto) 5% (0-3) Basophils (%) (Auto) 1% (0-3) Neutrophils # (Auto) 5.0x10^3uL (1.8-7.7) Lymphocytes # (Auto) 1.4x10^3/uL (1.0-4.8) Monocytes # (Auto) 1.2x10^3/uL (0.0-1.1) Eosinophils # (Auto) 0.4x10^3/uL (0.0-0.7) Basophils # (Auto) 0.1x10^3/uL (0.0-0.2) Sodium Level 141mmol/L (136-145) Potassium Level 3.5mmol/L (3.5-5.1) Chloride Level 110mmol/L (98-107) Carbon Dioxide Level 16mmol/L (21-32) Anion Gap 15 (6-14) Blood Urea Nitrogen 29mg/dL (7-20) Creatinine 3.9mg/dL (0.6-1.0) Estimated GFR (Cockcroft-Gault) 11.3 Glucose Level 88mg/dL (70-99) Calcium Level 8.7mg/dL (8.5-10.1) Iron Level 81ug/dL (50-170) Total Iron Binding Capacity 136ug/dL (250-450) Iron Saturation 60% (15-34) Ferritin 303ng/mL (8-252) Total Bilirubin 1.8mg/dL (0.2-1.0) Direct Bilirubin 0.8mg/dL (0.0-0.2) Aspartate Amino Transf (AST/SGOT) 63U/L (15-37) Alanine Aminotransferase (ALT/SGPT) 20U/L (14-59) Alkaline Phosphatase 146U/L (46-116) Total Protein 6.2g/dL (6.4-8.2) Albumin 2.0g/dL (3.4-5.0) Vitamin B12 Level 1273pg/mL (247-911) Serum Folate 13.22ng/ml (3.2-20.0) Laboratory Tests Test 05/31/16 17:12 06/01/16 05:20 Glucose (Fingerstick) 107mg/dL (70-99) White Blood Count 8.1x10^3/uL (4.0-11.0) Red Blood Count 2.33x10^6/uL (3.50-5.40) Hemoglobin 7.8g/dL (12.0-15.5) Hematocrit 22.7% (36.0-47.0) Mean Corpuscular Volume 97fL (79-100) Mean Corpuscular Hemoglobin 33pg (25-35) Mean Corpuscular Hemoglobin Concent 34g/dL (31-37) Red Cell Distribution Width 19.0% (11.5-14.5) Platelet Count 93x10^3/uL (140-400) Neutrophils (%) (Auto) 62% (31-73) Lymphocytes (%) (Auto) 18% (24-48) Monocytes (%) (Auto) 15% (0-9) Eosinophils (%) (Auto) 5% (0-3) Basophils (%) (Auto) 1% (0-3) Neutrophils # (Auto) 5.0x10^3uL (1.8-7.7) Lymphocytes # (Auto) 1.4x10^3/uL (1.0-4.8) Monocytes # (Auto) 1.2x10^3/uL (0.0-1.1) Eosinophils # (Auto) 0.4x10^3/uL (0.0-0.7) Basophils # (Auto) 0.1x10^3/uL (0.0-0.2) Sodium Level 141mmol/L (136-145) Potassium Level 3.5mmol/L (3.5-5.1) Chloride Level 110mmol/L (98-107) Carbon Dioxide Level 16mmol/L (21-32) Anion Gap 15 (6-14) Blood Urea Nitrogen 29mg/dL (7-20) Creatinine 3.9mg/dL (0.6-1.0) Estimated GFR (Cockcroft-Gault) 11.3 Glucose Level 88mg/dL (70-99) Calcium Level 8.7mg/dL (8.5-10.1) Iron Level 81ug/dL (50-170) Total Iron Binding Capacity 136ug/dL (250-450) Iron Saturation 60% (15-34) Ferritin 303ng/mL (8-252) Total Bilirubin 1.8mg/dL (0.2-1.0) Direct Bilirubin 0.8mg/dL (0.0-0.2) Aspartate Amino Transf (AST/SGOT) 63U/L (15-37) Alanine Aminotransferase (ALT/SGPT) 20U/L (14-59) Alkaline Phosphatase 146U/L (46-116) Total Protein 6.2g/dL (6.4-8.2) Albumin 2.0g/dL (3.4-5.0) Vitamin B12 Level 1273pg/mL (247-911) Serum Folate 13.22ng/ml (3.2-20.0) Microbiology 05/28/16 Blood Culture - Preliminary, Resulted NO GROWTH AFTER 3 DAYS Medications Current Medications Sodium Chloride (Iv Sodium Chloride 0.9% 1000ml Bag) 1,000 ml @ 1,000 mls/hr 1X ONCE IV Last administered on 05/28/16 16:07; Start 05/28/16 at 15:45; Stop 05/28/16 at 16:44; Status DC Ondansetron HCl 4 mg 4 mg PRN Q8HRS PRN IV NAUSEA/VOMITING; Start 05/28/16 at 17 :15; Stop 05/29/16 at 09:22; Status DC Sodium Chloride (Iv Sodium Chloride 0.9% 1000ml Bag) 1,000 ml @ 125 mls/hr Q8H IV ; Start 05/28/16 at 17:07; Stop 05/28/16 at 18:38; Status DC Lactulose 20 gm 20 gm PRN BID PRN PO CONSTIPATION; Start 05/28/16 at 18:45; Stop 05/29/16 at 10:00; Status DC Sodium Chloride (Iv Sodium Chloride 0.9% 1000ml Bag) 1,000 ml @ 75 mls/hr [id number] IV Last administered on 06/01/16 01:26; Start 05/28/16 at 19:00 Acetaminophen (Tylenol) 325 mg PRN Q6HRS PRN PO MILD PAIN / TEMP; Start at 19:00 Acetaminophen/ Hydrocodone Bitart (Lortab 5/325) 1 tab PRN Q6HRS PRN PO MODERATE TO SEVERE PAIN Last administered on 06/01/16 08:26; Start 05/28/16 at 19 :00 Hydralazine HCl (Apresoline) 10 mg PRN Q4HRS PRN IVP ELEVATED BP, SEE COMMENTS ; Start 05/28/16 at 19:00 Ondansetron HCl (Zofran) 4 mg PRN Q8HRS PRN IV NAUSEA/VOMITING Last administered on 05/30/16 03:36; Start 05/28/16 at 19:00 Albuterol Sulfate (Ventolin Neb Soln) 2.5 mg PRN Q4HRS PRN NEB SHORTNESS OF BREATH; Start 05/28/16 at 19:00 Lactulose 20 gm BID PO Last administered on 05/30/16 08:29; Start 05/29/16 at 10 :00; Stop 05/30/16 at 14:43; Status DC Pantoprazole Sodium (Protonix) 40 mg DAILYAC PO Last administered on 06/01/16 08:27; Start 05/29/16 at 10:00 Lactulose 20 gm TID PO ; Start 05/31/16 at 09:00; Stop 05/31/16 at 09:00; Status DC Lactulose 20 gm TID PO Last administered on 05/31/16 08:33; Start 05/30/16 at 14 :45; Stop 05/31/16 at 09:45; Status DC Rifaximin (Xifaxan) 550 mg Q12HR PO Last administered on 06/01/16 08:28; Start 05/30/16 at 15:00 Lactulose 20 gm [id number] PO Last administered on 05/31/16 14:59; Start 05/31/16 at 14:00 Active Scripts Active Pantoprazole Sodium 40 Mg Tablet.dr 40 Mg PO DAILYAC 30 Days Reported Neomycin Sulfate 500 Mg Tablet 1 Tab PO BID Spironolactone 50 Mg Tablet 1 Tab PO DAILY Mag-Oxide (Magnesium Oxide) 400 Mg Tablet 2 Tab PO BID Vitamin D3 (Cholecalciferol (Vitamin D3)) 400 Unit Tablet 400 Unit PO BID Fish Oil Conc 1,000 mg Softgel ([place]-3/Dha/Epa/Fish Oil) 1,000 Mg Capsule 3, 000 Mg PO DAILY Multiple Vitamin (Multivitamin With Minerals) 1 Each Tablet 1 Each PO Corzide 40-5 Tablet (Nadolol/Bendroflumethiazide) 1 Each Tablet 0.5 Tab PO DAILY Coenzyme Q10 (Ubidecarenone) 100 Mg Capsule 100 Mg PO DAILY Calcium (Calcium Carbonate) 600 Mg Tablet 600 Mg PO BID Vitals/I & O Vital Sign - Last 24 Hours 05/31/16 05/31/16 05/31/16 05/31/16 14:59 15:00 19:00 20:32 Temp 98.0 98.6 98.0 98.6 Pulse 89 83 Resp 22 20 20 B/P 136/89 143/80 Pulse Ox 96 98 97 O2 Delivery Room Air Room Air Room Air Room Air 05/31/16 05/31/16 05/31/16 06/01/16 20:36 21:40 23:00 03:00 Temp 97.9 97.9 97.9 97.9 Pulse 82 90 Resp 20 20 20 B/P 148/78 123/72 Pulse Ox 96 94 O2 Delivery Room Air Room Air Room Air 06/01/16 06/01/16 06/01/16 06/01/16 07:00 08:00 08:26 09:26 Temp 96.6 96.6 Pulse 103 Resp 19 B/P 137/87 Pulse Ox 95 94 94 O2 Delivery Room Air Room Air Room Air Room Air 06/01/16 10:45 Temp 97.7 97.7 Pulse 82 Resp 19 B/P 139/80 Pulse Ox 95 O2 Delivery Room Air Intake and Output 05/31/16 05/31/16 06/01/16 15:00 23:00 07:00 Intake Total 360 ml 1667 ml Output Total 500 ml Balance 360 ml 1167 ml ALOK JACKMAN MD Jun 01, 2016 13:15
[2016-06-01 15:00] VITALS: BP 146/87
[2016-06-01 15:23] LABS: KAPPA LAMBDA RATIO 1.55 (0.26-1.65)
[2016-06-01] MEDS ORDERED: MAGNESIUM SULFATE 2GM 50 ML IV PRN (15:30)
--- NOTE | 2016-06-01 15:44 | PDOC ---
SUBJECTIVE ROS KVNG/ ATN ? Doing and feeling well CVS: no Orthopnea, no CP RESP: no SOB, no SALINAS GI: no Nausea, no Vomiting : no Dysuria, no Urgency OBJECTIVE Vital Signs Vital Signs Date Time Temp Pulse Resp B/P Pulse Ox O2 Delivery O2 Flow Rate FiO2 06/01/16 10:45 97.7 82 19 139/80 95 Room Air 97.7 I & 0 Intake and Output 06/01/16 07:00 Intake Total 2027 ml Output Total 500 ml Balance 1527 ml Intake Oral 360 ml IV Total 1667 ml Output Urine Total 500 ml # Bowel Movements 2 PHYSICAL EXAM Physical Exam GEN: Awake, Oriented x 2, In no distress EYES: Vision Unchanged, Conjunctiva Normal EN: No EN Drainage, Mucous Membranes moist NECK: no JVD, min JVP, Supple, no Thyromegaly CVS: S1S2, + Murmur, No Gallop, No Rub,no Edema RESP: no Rales, no Rhonchi,no Acc. Muscle Use GI: BS + ve, NO Bruit, Non Tender, Non Distended : no CVA tenderness, no Suprapubic Tenderness DIAGNOSIS/ASSESSMENT Assessment & Plan KVNG/ ATN - ? HRS - check [place]. Current fluid and E-lyte status does not necessitate emergent need for dialysis. Will re-evaluate for dialysis in the am. ? R/o paraproteinemia too; Renal US ordered Met Acidosis - IVF with Bicarb ANEMIA; defer WQ/up and Mx to Heme/ onc; ^ed Fe Sats noted HTN: Current BP meds as reviewed. See orders for changes. Discussed Plan of Care with family (daughter) at bedside Problems: COMMENT/RELEVANT DATA Meds Current Medications Medications (Trade) Dose Ordered Sig/Sherri Start Time Stop Time Status Last Admin Dose Admin Acetaminophen (Tylenol) 325 mg PRN Q6HRS PRN 05/28/16 19:00 Acetaminophen/ Hydrocodone Bitart (Lortab 5/325) 1 tab PRN Q6HRS PRN 05/28/16 19:00 06/01/16 08:26 1 TAB Albuterol Sulfate (Ventolin Neb Soln) 2.5 mg PRN Q4HRS PRN 05/28/16 19:00 Hydralazine HCl (Apresoline) 10 mg PRN Q4HRS PRN 05/28/16 19:00 Lactulose 20 gm [id number] 05/31/16 14:00 05/31/16 14:59 20 GM Lactulose 20 gm 20 gm PRN BID PRN 05/28/16 18:45 05/29/16 10:00 DC Ondansetron HCl (Zofran) 4 mg PRN Q8HRS PRN 05/28/16 19:00 05/30/16 03:36 4 MG Pantoprazole Sodium (Protonix) 40 mg DAILYAC 05/29/16 10:00 06/01/16 08:27 40 MG Rifaximin (Xifaxan) 550 mg Q12HR 05/30/16 15:00 06/01/16 08:28 550 MG Sodium Chloride (Iv Sodium Chloride 0.9% 1000ml Bag) 1,000 ml @ 100 mls/hr Q10H 05/28/16 19:00 06/01/16 01:26 75 MLS/HR Lab Laboratory Tests Test 05/31/16 17:12 06/01/16 05:20 Glucose (Fingerstick) 107mg/dL (70-99) White Blood Count 8.1x10^3/uL (4.0-11.0) Red Blood Count 2.33x10^6/uL (3.50-5.40) Hemoglobin 7.8g/dL (12.0-15.5) Hematocrit 22.7% (36.0-47.0) Mean Corpuscular Volume 97fL (79-100) Mean Corpuscular Hemoglobin 33pg (25-35) Mean Corpuscular Hemoglobin Concent 34g/dL (31-37) Red Cell Distribution Width 19.0% (11.5-14.5) Platelet Count 93x10^3/uL (140-400) Neutrophils (%) (Auto) 62% (31-73) Lymphocytes (%) (Auto) 18% (24-48) Monocytes (%) (Auto) 15% (0-9) Eosinophils (%) (Auto) 5% (0-3) Basophils (%) (Auto) 1% (0-3) Neutrophils # (Auto) 5.0x10^3uL (1.8-7.7) Lymphocytes # (Auto) 1.4x10^3/uL (1.0-4.8) Monocytes # (Auto) 1.2x10^3/uL (0.0-1.1) Eosinophils # (Auto) 0.4x10^3/uL (0.0-0.7) Basophils # (Auto) 0.1x10^3/uL (0.0-0.2) Sodium Level 141mmol/L (136-145) Potassium Level 3.5mmol/L (3.5-5.1) Chloride Level 110mmol/L (98-107) Carbon Dioxide Level 16mmol/L (21-32) Anion Gap 15 (6-14) Blood Urea Nitrogen 29mg/dL (7-20) Creatinine 3.9mg/dL (0.6-1.0) Estimated GFR (Cockcroft-Gault) 11.3 Glucose Level 88mg/dL (70-99) Calcium Level 8.7mg/dL (8.5-10.1) Iron Level 81ug/dL (50-170) Total Iron Binding Capacity 136ug/dL (250-450) Iron Saturation 60% (15-34) Ferritin 303ng/mL (8-252) Total Bilirubin 1.8mg/dL (0.2-1.0) Direct Bilirubin 0.8mg/dL (0.0-0.2) Aspartate Amino Transf (AST/SGOT) 63U/L (15-37) Alanine Aminotransferase (ALT/SGPT) 20U/L (14-59) Alkaline Phosphatase 146U/L (46-116) Total Protein 6.2g/dL (6.4-8.2) Albumin 2.0g/dL (3.4-5.0) Vitamin B12 Level 1273pg/mL (247-911) Serum Folate 13.22ng/ml (3.2-20.0) WIL GRANDE MD Jun 01, 2016 15:44
[2016-06-01] MEDS: SODIUM BICARBONATE VIAL 75 MEQ in IV 1/2 NORMAL SALINE 1,000 ML IV SCH (16:06)
[2016-06-01 19:00] VITALS: BP 145/85
[2016-06-01 23:00] VITALS: BP 141/72
[2016-06-02] MEDS: SODIUM BICARBONATE VIAL 75 MEQ in IV 1/2 NORMAL SALINE 1,000 ML IV SCH ×2 (02:51→11:51)
[2016-06-02 03:00] VITALS: BP 123/70
[2016-06-02 03:24] LABS: ALBUMIN 1.9 g/dL (3.4-5.0); CALCIUM 8.3 mg/dL (8.5-10.1); CREATININE 3.6 mg/dL (0.6-1.0); GFR 12.4; PHOSPHORUS 3.8 mg/dL (2.6-4.7); POTASSIUM 3.3 mmol/L (3.5-5.1)
[2016-06-02 03:51] LABS: BASO # 0.1 x10^3/uL (0.0-0.2); BASO % 1 % (0-3); EOS % 7 % (0-3); HEMATOCRIT 22.5 % (36.0-47.0); HEMOGLOBIN 7.8 g/dL (12.0-15.5); LYMPH # 1.4 x10^3/uL (1.0-4.8); LYMPH % 20 % (24-48); MEAN CORPUSCULAR HEMOGLOBIN 35 pg (25-35); MEAN CORPUSCULAR HGB CONC 35 g/dL (31-37); MEAN CORPUSCULAR VOLUME 100 fL (79-100); MONO % 18 % (0-9); NEUT % 55 % (31-73); PLATELET COUNT 90 x10^3/uL (140-400); RED BLOOD COUNT 2.24 x10^6/uL (3.50-5.40); RED CELL DISTRIBUTION WIDTH 18.6 % (11.5-14.5); WHITE BLOOD COUNT 7.3 x10^3/uL (4.0-11.0)
--- NOTE | 2016-06-02 07:24 | RAD ---
EXAM: Renal/retroperitonal ultrasound HISTORY: Acute renal injury. COMPARISON: 01/28/2016. FINDINGS: Ultrasound of the kidneys, bladder and retroperitoneum was performed. The right kidney measures 8.8 cm. Cortical thickness is preserved but echogenicity is increased. There is no hydronephrosis. The left kidney measures 9.1 cm. Cortical thickness is preserved. Echogenicity is not clearly increased on the left. There is no hydronephrosis. The bladder is partially decompressed but demonstrates wall thickening. Hepatic surface nodularity indicate cirrhotic change. There is moderate ascites in the upper abdomen. IMPRESSION: 1. At least mild bilateral renal atrophy. Increased renal cortical echogenicity is consistent with intrinsic renal disease. 2. Hepatic surface nodularity is consistent with cirrhotic change. 3. Moderate ascites. 4. Diffuse bladder wall thickening indicates chronic outlet obstruction or inflammation. Correlate with urinalysis.
[2016-06-02 07:25] VITALS: BP 124/72
[2016-06-02] MEDS: RIFAXIMIN 550 MG TABLET PO SCH ×2 (08:36→21:04)
[2016-06-02] MEDS: PANTOPRAZOLE 40 MG TABLET. PO SCH (08:36)
[2016-06-02] MEDS: LACTULOSE 20 GM/30 ML SOLUTION. PO SCH ×3 (08:36→21:00)
[2016-06-02] MEDS ORDERED: POTASSIUM CHLORIDE 20 MEQ TABLET.ER. PO ONE (09:00)
--- NOTE | 2016-06-02 09:09 | PDOC ---
Subjective: Subjective: Onc f/u- Anemia, thrombocytopenia, likely due to EtOH Pt with no changes. No SOB, CP, Abd pain. Eating well. Objective: Vital Signs: Vital Signs Date Time Temp Pulse Resp B/P Pulse Ox O2 Delivery O2 Flow Rate FiO2 06/02/16 03:00 97.5 96 20 123/70 93 Room Air 97.5 Physical Exam: Heart: Regular rate Extremities: No edema General: Alert, Oriented X3, Cooperative, No acute distress Lungs: Other (no resp distress) Psych/Mental Status: Mental status NL, Mood NL Labs/Imaging: CBC stable SFLC ratio normal Iron, b12, folate WNL SPEP, hepatitis panel pending Renal, GI notes reviewed Assessment/Plan A/P: 71 yo F with: 1. Anemia, initial macrocytic now normocytic- Stable. Rouleaux formation initially on smear. Serum free light chain ratio WNL, SPEP pending. Doubt MM. 2. Thrombocytopenia, plt ~ 90- stable 3. Mildly low haptoglobin- Likely due to liver d/f from alcohol. No evidence of hemolysis. 4. Acute vs chronic kidney disease 5. Ho alcohol abuse up to admission per daughter; pt denies. Plan: - F/u pending SPEP, SIFE - F/u hepatitis panel, Epo - Suspect cytopenias related to alcohol abuse; continue to monitor and hold on further eval unless counts continue to drop. Alcohol cessation again encouraged with pt. NAVEED SEPULVEDA DO Jun 02, 2016 09:08
[2016-06-02 10:30] VITALS: BP 124/73
--- NOTE | 2016-06-02 11:28 | PDOC ---
Subjective: Subjective: Doing better. No stools today. Objective: Objective: Per RN - refusing lactulose, A & O x 4 today. Vital Signs: Vital Signs Date Time Temp Pulse Resp B/P Pulse Ox O2 Delivery O2 Flow Rate FiO2 06/02/16 10:30 96.8 93 18 124/73 92 Room Air 96.8 Labs: Laboratory Tests Test 06/02/16 02:53 White Blood Count 7.3x10^3/uL Red Blood Count 2.24x10^6/uL Hemoglobin 7.8g/dL Hematocrit 22.5% Mean Corpuscular Volume 100fL Mean Corpuscular Hemoglobin 35pg Mean Corpuscular Hemoglobin Concent 35g/dL Red Cell Distribution Width 18.6% Platelet Count 90x10^3/uL Neutrophils (%) (Auto) 55% Lymphocytes (%) (Auto) 20% Monocytes (%) (Auto) 18% Eosinophils (%) (Auto) 7% Basophils (%) (Auto) 1% Neutrophils # (Auto) 4.1x10^3uL Lymphocytes # (Auto) 1.4x10^3/uL Monocytes # (Auto) 1.3x10^3/uL Eosinophils # (Auto) 0.5x10^3/uL Basophils # (Auto) 0.1x10^3/uL Sodium Level 141mmol/L Potassium Level 3.3mmol/L Chloride Level 109mmol/L Carbon Dioxide Level 19mmol/L Anion Gap 13 Blood Urea Nitrogen 25mg/dL Creatinine 3.6mg/dL Estimated GFR (Cockcroft-Gault) 12.4 Glucose Level 97mg/dL Calcium Level 8.3mg/dL Phosphorus Level 3.8mg/dL Magnesium Level 1.0mg/dL Ammonia 116mcmol/L Albumin 1.9g/dL Imaging: Renal US 06/01/16 IMPRESSION: 1. At least mild bilateral renal atrophy. Increased renal cortical echogenicity is consistent with intrinsic renal disease. 2. Hepatic surface nodularity is consistent with cirrhotic change. 3. Moderate ascites. 4. Diffuse bladder wall thickening indicates chronic outlet obstruction or inflammation. Correlate with urinalysis. PE: GEN: NAD OTHER: up w/ PT, walker, in restroom sponging neck NEURO/PSYCH: A & O 3 A/P: Hyperammonemia -alcoholic cirrhosis - apparently was still drinking prior to this admission -CT in 01/2016 showed nodular liver (cirrhosis), Doppler 05/2016 unrevealing, AFP WNL -on Xifaxin BID, refusing lactulose w/ loose stools H/o Billroth II, GERD -last EGD 12/2015, on PPI Anemia/thrombocytopenia KVNG -- Ammonia increased again today - encouraged/explained need for lactulose. Again changed from PRN to scheduled. IVY BETH Jun 02, 2016 11:28
[2016-06-02] MEDS: HYDROCODONE/APAP 5/325MG TABLET. PO PRN (11:50)
--- NOTE | 2016-06-02 11:53 | PDOC ---
PROGRESS NOTES Chief Complaint Chief Complaint Altered mental status, hyperammonemia 1. Encephalopathy, possible metabolic, hepatic. 2. Acute kidney injury, ATN 3. Metabolic acidosis. 4. Thrombocytopenia 2/2 cirrhosis likely 5. Anemia, chronic. 6. Hyperbilirubinemia. 7. Alcoholism. 8. high INR 2/2 CIrrhosis likely 9, LEFT thigh pain, 2/2 OA? plan 1. fu with renal, onco 2. fu with labs ordered for onco 3. ivf with bicarb 4. monitor Cr PTOT SW, will do HH cont rifaxin, cont lactulose to keep BM 2-3 times a day check left hip xr, dr. James consult History of Present Illness History of Present Illness Patient lying in bed when evaluated this AM. No longer assigned a 1:1 sitter, as pt has showed less restlessness. Had a spike in ammonia level yesterday 112. Lactulose was increased and ammonia level has come back down. Pt reported diarrhea 2/2 to lactulose increase. Per oncology note- pt's daughter confirms that patient has been drinking up until admission. Pt had previously claimed to having been a couple months sober. pt refused lactulose yesterday, ammonia level high again today. altho i explained to her many times has to keep BM 2-3 times perday, only one time BM yesterday and today Cr better with ivf , still high left hip pain for a couple of weeks, ok to ambulate Vitals Vitals Vital Signs Date Time Temp Pulse Resp B/P Pulse Ox O2 Delivery O2 Flow Rate FiO2 06/02/16 10:30 96.8 93 18 124/73 92 Room Air 96.8 Physical Exam General: Alert, Oriented X3, Cooperative, No acute distress Heart: Regular rate Lungs: Clear Abdomen: Soft, No tenderness, Other (no ascites) Extremities: No edema Skin: Other (no bruising) Labs LABS Laboratory Tests Test 06/02/16 02:53 White Blood Count 7.3x10^3/uL (4.0-11.0) Red Blood Count 2.24x10^6/uL (3.50-5.40) Hemoglobin 7.8g/dL (12.0-15.5) Hematocrit 22.5% (36.0-47.0) Mean Corpuscular Volume 100fL (79-100) Mean Corpuscular Hemoglobin 35pg (25-35) Mean Corpuscular Hemoglobin Concent 35g/dL (31-37) Red Cell Distribution Width 18.6% (11.5-14.5) Platelet Count 90x10^3/uL (140-400) Neutrophils (%) (Auto) 55% (31-73) Lymphocytes (%) (Auto) 20% (24-48) Monocytes (%) (Auto) 18% (0-9) Eosinophils (%) (Auto) 7% (0-3) Basophils (%) (Auto) 1% (0-3) Neutrophils # (Auto) 4.1x10^3uL (1.8-7.7) Lymphocytes # (Auto) 1.4x10^3/uL (1.0-4.8) Monocytes # (Auto) 1.3x10^3/uL (0.0-1.1) Eosinophils # (Auto) 0.5x10^3/uL (0.0-0.7) Basophils # (Auto) 0.1x10^3/uL (0.0-0.2) Sodium Level 141mmol/L (136-145) Potassium Level 3.3mmol/L (3.5-5.1) Chloride Level 109mmol/L (98-107) Carbon Dioxide Level 19mmol/L (21-32) Anion Gap 13 (6-14) Blood Urea Nitrogen 25mg/dL (7-20) Creatinine 3.6mg/dL (0.6-1.0) Estimated GFR (Cockcroft-Gault) 12.4 Glucose Level 97mg/dL (70-99) Calcium Level 8.3mg/dL (8.5-10.1) Phosphorus Level 3.8mg/dL (2.6-4.7) Magnesium Level 1.0mg/dL (1.8-2.4) Ammonia 116mcmol/L (11-34) Albumin 1.9g/dL (3.4-5.0) Review of Systems Review of Systems no fever, chills, sob or chest pain Assessment and Plan Assessmemt and Plan Problems Medical Problems: (1) Altered mental status Status: Acute (2) Hyperammonemia Status: Acute Problems: Comment Review of Relevant I have reviewed the following items amy (where applicable) has been applied. Labs Laboratory Tests Test 05/31/16 17:12 3/6/17 05:20 06/02/16 02:53 Glucose (Fingerstick) 107mg/dL (70-99) White Blood Count 8.1x10^3/uL (4.0-11.0) 7.3x10^3/uL (4.0-11.0) Red Blood Count 2.33x10^6/uL (3.50-5.40) 2.24x10^6/uL (3.50-5.40) Hemoglobin 7.8g/dL (12.0-15.5) 7.8g/dL (12.0-15.5) Hematocrit 22.7% (36.0-47.0) 22.5% (36.0-47.0) Mean Corpuscular Volume 97fL (79-100) 100fL (79-100) Mean Corpuscular Hemoglobin 33pg (25-35) 35pg (25-35) Mean Corpuscular Hemoglobin Concent 34g/dL (31-37) 35g/dL (31-37) Red Cell Distribution Width 19.0% (11.5-14.5) 18.6% (11.5-14.5) Platelet Count 93x10^3/uL (140-400) 90x10^3/uL (140-400) Neutrophils (%) (Auto) 62% (31-73) 55% (31-73) Lymphocytes (%) (Auto) 18% (24-48) 20% (24-48) Monocytes (%) (Auto) 15% (0-9) 18% (0-9) Eosinophils (%) (Auto) 5% (0-3) 7% (0-3) Basophils (%) (Auto) 1% (0-3) 1% (0-3) Neutrophils # (Auto) 5.0x10^3uL (1.8-7.7) 4.1x10^3uL (1.8-7.7) Lymphocytes # (Auto) 1.4x10^3/uL (1.0-4.8) 1.4x10^3/uL (1.0-4.8) Monocytes # (Auto) 1.2x10^3/uL (0.0-1.1) 1.3x10^3/uL (0.0-1.1) Eosinophils # (Auto) 0.4x10^3/uL (0.0-0.7) 0.5x10^3/uL (0.0-0.7) Basophils # (Auto) 0.1x10^3/uL (0.0-0.2) 0.1x10^3/uL (0.0-0.2) Sodium Level 141mmol/L (136-145) 141mmol/L (136-145) Potassium Level 3.5mmol/L (3.5-5.1) 3.3mmol/L (3.5-5.1) Chloride Level 110mmol/L (98-107) 109mmol/L (98-107) Carbon Dioxide Level 16mmol/L (21-32) 19mmol/L (21-32) Anion Gap 15 (6-14) 13 (6-14) Blood Urea Nitrogen 29mg/dL (7-20) 25mg/dL (7-20) Creatinine 3.9mg/dL (0.6-1.0) 3.6mg/dL (0.6-1.0) Estimated GFR (Cockcroft-Gault) 11.3 12.4 Glucose Level 88mg/dL (70-99) 97mg/dL (70-99) Calcium Level 8.7mg/dL (8.5-10.1) 8.3mg/dL (8.5-10.1) Iron Level 81ug/dL (50-170) Total Iron Binding Capacity 136ug/dL (250-450) Iron Saturation 60% (15-34) Ferritin 303ng/mL (8-252) Total Bilirubin 1.8mg/dL (0.2-1.0) Direct Bilirubin 0.8mg/dL (0.0-0.2) Aspartate Amino Transf (AST/SGOT) 63U/L (15-37) Alanine Aminotransferase (ALT/SGPT) 20U/L (14-59) Alkaline Phosphatase 146U/L (46-116) Total Protein 6.2g/dL (6.4-8.2) Albumin 2.0g/dL (3.4-5.0) 1.9g/dL (3.4-5.0) Vitamin B12 Level 1273pg/mL (247-911) Serum Folate 13.22ng/ml (3.2-20.0) Phosphorus Level 3.8mg/dL (2.6-4.7) Magnesium Level 1.0mg/dL (1.8-2.4) Ammonia 116mcmol/L (11-34) Laboratory Tests Test 06/02/16 02:53 White Blood Count 7.3x10^3/uL (4.0-11.0) Red Blood Count 2.24x10^6/uL (3.50-5.40) Hemoglobin 7.8g/dL (12.0-15.5) Hematocrit 22.5% (36.0-47.0) Mean Corpuscular Volume 100fL (79-100) Mean Corpuscular Hemoglobin 35pg (25-35) Mean Corpuscular Hemoglobin Concent 35g/dL (31-37) Red Cell Distribution Width 18.6% (11.5-14.5) Platelet Count 90x10^3/uL (140-400) Neutrophils (%) (Auto) 55% (31-73) Lymphocytes (%) (Auto) 20% (24-48) Monocytes (%) (Auto) 18% (0-9) Eosinophils (%) (Auto) 7% (0-3) Basophils (%) (Auto) 1% (0-3) Neutrophils # (Auto) 4.1x10^3uL (1.8-7.7) Lymphocytes # (Auto) 1.4x10^3/uL (1.0-4.8) Monocytes # (Auto) 1.3x10^3/uL (0.0-1.1) Eosinophils # (Auto) 0.5x10^3/uL (0.0-0.7) Basophils # (Auto) 0.1x10^3/uL (0.0-0.2) Sodium Level 141mmol/L (136-145) Potassium Level 3.3mmol/L (3.5-5.1) Chloride Level 109mmol/L (98-107) Carbon Dioxide Level 19mmol/L (21-32) Anion Gap 13 (6-14) Blood Urea Nitrogen 25mg/dL (7-20) Creatinine 3.6mg/dL (0.6-1.0) Estimated GFR (Cockcroft-Gault) 12.4 Glucose Level 97mg/dL (70-99) Calcium Level 8.3mg/dL (8.5-10.1) Phosphorus Level 3.8mg/dL (2.6-4.7) Magnesium Level 1.0mg/dL (1.8-2.4) Ammonia 116mcmol/L (11-34) Albumin 1.9g/dL (3.4-5.0) Microbiology 05/28/16 Blood Culture - Preliminary, Resulted NO GROWTH AFTER 4 DAYS Medications Current Medications Sodium Chloride (Iv Sodium Chloride 0.9% 1000ml Bag) 1,000 ml @ 1,000 mls/hr 1X ONCE IV Last administered on 05/28/16 16:07; Start 05/28/16 at 15:45; Stop 05/28/16 at 16:44; Status DC Ondansetron HCl 4 mg 4 mg PRN Q8HRS PRN IV NAUSEA/VOMITING; Start 05/28/16 at 17 :15; Stop 05/29/16 at 09:22; Status DC Sodium Chloride (Iv Sodium Chloride 0.9% 1000ml Bag) 1,000 ml @ 125 mls/hr Q8H IV ; Start 05/28/16 at 17:07; Stop 05/28/16 at 18:38; Status DC Lactulose 20 gm 20 gm PRN BID PRN PO CONSTIPATION; Start 05/28/16 at 18:45; Stop 05/29/16 at 10:00; Status DC Sodium Chloride (Iv Sodium Chloride 0.9% 1000ml Bag) 1,000 ml @ 100 mls/hr Q10H IV Last administered on 06/01/16 01:26; Start 05/28/16 at 19:00; Stop at 15:33; Status DC Acetaminophen (Tylenol) 325 mg PRN Q6HRS PRN PO MILD PAIN / TEMP; Start at 19:00 Acetaminophen/ Hydrocodone Bitart (Lortab 5/325) 1 tab PRN Q6HRS PRN PO MODERATE TO SEVERE PAIN Last administered on 06/01/16 21:01; Start 05/28/16 at 19 :00 Hydralazine HCl (Apresoline) 10 mg PRN Q4HRS PRN IVP ELEVATED BP, SEE COMMENTS ; Start 05/28/16 at 19:00 Ondansetron HCl (Zofran) 4 mg PRN Q8HRS PRN IV NAUSEA/VOMITING Last administered on 05/30/16 03:36; Start 05/28/16 at 19:00 Albuterol Sulfate (Ventolin Neb Soln) 2.5 mg PRN Q4HRS PRN NEB SHORTNESS OF BREATH; Start 05/28/16 at 19:00 Lactulose 20 gm BID PO Last administered on 05/30/16 08:29; Start 05/29/16 at 10 :00; Stop 05/30/16 at 14:43; Status DC Pantoprazole Sodium (Protonix) 40 mg DAILYAC PO Last administered on 06/02/16 08:36; Start 05/29/16 at 10:00 Lactulose 20 gm TID PO ; Start 05/31/16 at 09:00; Stop 05/31/16 at 09:00; Status DC Lactulose 20 gm TID PO Last administered on 05/31/16 08:33; Start 05/30/16 at 14 :45; Stop 05/31/16 at 09:45; Status DC Rifaximin (Xifaxan) 550 mg Q12HR PO Last administered on 06/02/16 08:36; Start 05/30/16 at 15:00 Lactulose 20 gm 20 gm [id number] PO Last administered on 05/31/16 14:59; Start at 14:00; Stop 06/02/16 at 10:11; Status DC Magnesium Sulfate/ Dextrose 50 ml @ 25 mls/hr PRN DAILY PRN IV for Mag < 1.7 on am labs; Start 06/01/16 at 15:30 Sodium Bicarbonate/ Sodium Chloride (Iv Sodium Chloride 0.45%) 1,075 ml @ 100 mls/hr [id number] IV Last administered on 06/02/16 02:51; Start 06/01/16 at 15:45 Potassium Chloride (Klor-Con) 40 meq 1X ONCE PO Last administered on 06/02/16 08:39; Start 06/02/16 at 09:00; Stop 06/02/16 at 09:01; Status DC Lactulose 20 gm PRN BID PRN PO CONSTIPATION; Start 06/03/16 at 09:00; Stop at 12:00 Lactulose 20 gm BID PO ; Start 06/02/16 at 12:00 Active Scripts Active Pantoprazole Sodium 40 Mg Tablet.dr 40 Mg PO DAILYAC 30 Days Reported Neomycin Sulfate 500 Mg Tablet 1 Tab PO BID Spironolactone 50 Mg Tablet 1 Tab PO DAILY Mag-Oxide (Magnesium Oxide) 400 Mg Tablet 2 Tab PO BID Vitamin D3 (Cholecalciferol (Vitamin D3)) 400 Unit Tablet 400 Unit PO BID Fish Oil Conc 1,000 mg Softgel ([place]-3/Dha/Epa/Fish Oil) 1,000 Mg Capsule 3, 000 Mg PO DAILY Multiple Vitamin (Multivitamin With Minerals) 1 Each Tablet 1 Each PO Corzide 40-5 Tablet (Nadolol/Bendroflumethiazide) 1 Each Tablet 0.5 Tab PO DAILY Coenzyme Q10 (Ubidecarenone) 100 Mg Capsule 100 Mg PO DAILY Calcium (Calcium Carbonate) 600 Mg Tablet 600 Mg PO BID Vitals/I & O Vital Sign - Last 24 Hours 06/01/16 06/01/16 06/01/16 06/01/16 15:00 19:00 20:00 21:01 Temp 97.9 98.1 97.9 98.1 Pulse 95 89 Resp 19 20 B/P 146/87 145/85 Pulse Ox 98 94 O2 Delivery Room Air Room Air Room Air Room Air 06/01/16 06/01/16 06/02/16 06/02/16 22:01 23:00 03:00 07:25 Temp 98.1 97.5 97.9 98.1 97.5 97.9 Pulse 97 96 89 Resp 20 20 18 B/P 141/72 123/70 124/72 Pulse Ox 93 93 93 O2 Delivery Room Air Room Air Room Air Room Air 06/02/16 06/02/16 08:00 10:30 Temp 96.8 96.8 Pulse 93 Resp 18 B/P 124/73 Pulse Ox 92 O2 Delivery Room Air Room Air Intake and Output 06/01/16 06/01/16 06/02/16 15:00 23:00 07:00 Intake Total 250 ml 800 ml 950 ml Output Total 650 ml Balance 250 ml 150 ml 950 ml ALOK JACKMAN MD Jun 02, 2016 11:53
[2016-06-02 14:35] VITALS: BP 124/80
[2016-06-02 16:20] LABS: ALPHA 1 0.2 g/dL (0.0-0.4); ALPHA 2 0.4 g/dL (0.4-1.0); BETA 0.8 g/dL (0.7-1.3); GAMMA 2.2 g/dL (0.4-1.8); M-SPIKE Note: g/dL (Not Observed); PROTEIN TOTAL 5.9 g/dL (6.0-8.5)
--- NOTE | 2016-06-02 16:22 | RAD ---
EXAM: Left hip 2 views. HISTORY: Left hip pain. COMPARISON: None. FINDINGS: Osteopenia is moderate to severe. Sensitivity for nondisplaced fractures is decreased in this setting, but none are seen. The joint spaces and alignment of the left hip are maintained. There are moderate degenerative changes of the pubic symphysis. 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 IMPRESSION: 1. Moderate to severe osteopenia limits sensitivity. MRI could further assess for nondisplaced fracture or stress/insufficiency lesions if there is persistent concern.
[2016-06-02] MEDS ORDERED: BUPIVACAINE MPF 0.25% 10 ML VIAL. IJ ONE (16:30)
[2016-06-02] MEDS ORDERED: methylPREDNISolone ACETATE 40 MG/ML VIAL. IM ONE ×2 (16:30→16:45)
--- NOTE | 2016-06-02 18:12 | PDOC ---
SUBJECTIVE ROS CVS: [] Orthopnea, [] CP RESP: [] SOB, [] SALINAS GI: [] Nausea, [] Vomiting : [] Dysuria, [] Urgency OBJECTIVE Vital Signs Vital Signs Date Time Temp Pulse Resp B/P Pulse Ox O2 Delivery O2 Flow Rate FiO2 06/02/16 12:38 16 Room Air 06/02/16 10:30 96.8 93 124/73 92 96.8 I & 0 Intake and Output 06/02/16 07:00 Intake Total 2000 ml Output Total 650 ml Balance 1350 ml Intake Oral 1050 ml IV Total 950 ml Output Urine Total 650 ml # Voids 2 PHYSICAL EXAM Physical Exam GEN: Awake, Oriented x [], In [] distress EYES: Vision Unchanged, Conjunctiva Normal EN: No EN Drainage, Mucous Membranes [] NECK: [] JVD, [] JVP, Supple, [] Thyromegaly CVS: S1S2, [] Murmur, No Gallop, No Rub,[] Edema RESP: [] Rales, [] Rhonchi,[] Acc. Muscle Use GI: BS + ve, NO Bruit, Non Tender, Non Distended : [] CVA tenderness, [] Suprapubic Tenderness DIAGNOSIS/ASSESSMENT Assessment & Plan ESRD/ARF: Current fluid and E-lyte status does not necessitate emergent need for dialysis. Will re-evaluate for dialysis in the am and continue on [] schedule. ANEMIA; [] Aranap as ordered, [] Transfuse [] with next HD as needed HTN: Current BP meds as reviewed. See orders for changes. BONE & MINERAL: [] Discussed Plan of Care with family [] at bedside [] over the phone Problems: COMMENT/RELEVANT DATA Meds Current Medications Medications (Trade) Dose Ordered Sig/Sherri Start Time Stop Time Status Last Admin Dose Admin Acetaminophen (Tylenol) 325 mg PRN Q6HRS PRN 05/28/16 19:00 Acetaminophen/ Hydrocodone Bitart (Lortab 5/325) 1 tab PRN Q6HRS PRN 05/28/16 19:00 06/02/16 11:50 1 TAB Albuterol Sulfate (Ventolin Neb Soln) 2.5 mg PRN Q4HRS PRN 05/28/16 19:00 Bupivacaine HCl (Sensorcaine-Mpf 0.25%) 10 ml 1X ONCE 06/02/16 16:30 06/02/16 16:31 DC 06/02/16 16:46 10 ML Hydralazine HCl (Apresoline) 10 mg PRN Q4HRS PRN 05/28/16 19:00 Lactulose 20 gm BID 06/02/16 12:00 06/02/16 11:49 20 GM Lactulose 20 gm 20 gm [id number] 05/31/16 14:00 06/02/16 10:11 DC 05/31/16 14:59 20 GM Magnesium Sulfate/ Dextrose 50 ml @ 25 mls/hr PRN DAILY PRN 06/01/16 15:30 Methylprednisolone Acetate (Depo-Medrol 40mg Vial) 40 mg 1X ONCE 06/02/16 16:45 06/02/16 16:46 DC 06/02/16 16:45 40 MG Ondansetron HCl (Zofran) 4 mg PRN Q8HRS PRN 05/28/16 19:00 05/30/16 03:36 4 MG Ondansetron HCl 4 mg 4 mg PRN Q8HRS PRN 05/28/16 17:15 05/29/16 09:22 DC Pantoprazole Sodium (Protonix) 40 mg DAILYAC 05/29/16 10:00 06/02/16 08:36 40 MG Potassium Chloride (Klor-Con) 40 meq 1X ONCE 06/02/16 09:00 06/02/16 09:01 DC 06/02/16 08:39 40 MEQ Rifaximin (Xifaxan) 550 mg Q12HR 05/30/16 15:00 06/02/16 08:36 550 MG Sodium Bicarbonate/ Sodium Chloride (Iv Sodium Chloride 0.45%) 1,075 ml @ 100 mls/hr [id number] 06/01/16 15:45 06/02/16 11:51 100 MLS/HR Sodium Chloride (Iv Sodium Chloride 0.9% 1000ml Bag) 1,000 ml @ 100 mls/hr Q10H 05/28/16 19:00 06/01/16 15:33 DC 06/01/16 01:26 75 MLS/HR Lab Laboratory Tests Test 06/01/16 19:55 06/02/16 02:53 Urine Random Sodium 102mmol/L (Not Estab.) White Blood Count 7.3x10^3/uL (4.0-11.0) Red Blood Count 2.24x10^6/uL (3.50-5.40) Hemoglobin 7.8g/dL (12.0-15.5) Hematocrit 22.5% (36.0-47.0) Mean Corpuscular Volume 100fL (79-100) Mean Corpuscular Hemoglobin 35pg (25-35) Mean Corpuscular Hemoglobin Concent 35g/dL (31-37) Red Cell Distribution Width 18.6% (11.5-14.5) Platelet Count 90x10^3/uL (140-400) Neutrophils (%) (Auto) 55% (31-73) Lymphocytes (%) (Auto) 20% (24-48) Monocytes (%) (Auto) 18% (0-9) Eosinophils (%) (Auto) 7% (0-3) Basophils (%) (Auto) 1% (0-3) Neutrophils # (Auto) 4.1x10^3uL (1.8-7.7) Lymphocytes # (Auto) 1.4x10^3/uL (1.0-4.8) Monocytes # (Auto) 1.3x10^3/uL (0.0-1.1) Eosinophils # (Auto) 0.5x10^3/uL (0.0-0.7) Basophils # (Auto) 0.1x10^3/uL (0.0-0.2) Sodium Level 141mmol/L (136-145) Potassium Level 3.3mmol/L (3.5-5.1) Chloride Level 109mmol/L (98-107) Carbon Dioxide Level 19mmol/L (21-32) Anion Gap 13 (6-14) Blood Urea Nitrogen 25mg/dL (7-20) Creatinine 3.6mg/dL (0.6-1.0) Estimated GFR (Cockcroft-Gault) 12.4 Glucose Level 97mg/dL (70-99) Calcium Level 8.3mg/dL (8.5-10.1) Phosphorus Level 3.8mg/dL (2.6-4.7) Magnesium Level 1.0mg/dL (1.8-2.4) Ammonia 116mcmol/L (11-34) Albumin 1.9g/dL (3.4-5.0) Other IMPRESSION: 1. At least mild bilateral renal atrophy. Increased renal cortical echogenicity is consistent with intrinsic renal disease. 2. Hepatic surface nodularity is consistent with cirrhotic change. 3. Moderate ascites. 4. Diffuse bladder wall thickening indicates chronic outlet obstruction or inflammation. Correlate with urinalysis. WIL GRANDE MD Jun 02, 2016 18:12
[2016-06-02 18:13] LABS: IMMUNOGLOBULIN A 632 mg/dL (64-422); IMMUNOGLOBULIN G 1503 mg/dL (700-1600); IMMUNOGLOBULIN M 1083 mg/dL (26-217)
[2016-06-02] MEDS ORDERED: POTASSIUM CHLORIDE 20 MEQ TABLET.ER. PO PRN (18:15)
--- NOTE | 2016-06-02 18:16 | PDOC ---
SUBJECTIVE ROS KVNG Doing OK overall CVS: no Orthopnea, no CP RESP: no SOB, no SALINAS GI: no Nausea, no Vomiting : no Dysuria, no Urgency OBJECTIVE Vital Signs Vital Signs Date Time Temp Pulse Resp B/P Pulse Ox O2 Delivery O2 Flow Rate FiO2 06/02/16 12:38 16 Room Air 06/02/16 10:30 96.8 93 124/73 92 96.8 I & 0 Intake and Output 06/02/16 07:00 Intake Total 2000 ml Output Total 650 ml Balance 1350 ml Intake Oral 1050 ml IV Total 950 ml Output Urine Total 650 ml # Voids 2 PHYSICAL EXAM Physical Exam GEN: Awake, Oriented x 2, In no distress EYES: Vision Unchanged, Conjunctiva Normal EN: No EN Drainage, Mucous Membranes moist NECK: no JVD, min JVP, Supple, no Thyromegaly CVS: S1S2, + Murmur, No Gallop, No Rub,no Edema RESP: no Rales, no Rhonchi,no Acc. Muscle Use GI: BS + ve, NO Bruit, Non Tender, Non Distended : no CVA tenderness, no Suprapubic Tenderness DIAGNOSIS/ASSESSMENT Assessment & Plan KVNG/ ATN - ? HRS - check [place]. Current fluid and E-lyte status does not necessitate emergent need for dialysis. Will re-evaluate for dialysis in the am. ? R/o paraproteinemia too; Renal US ordered Met Acidosis - IVF with Bicarb ANEMIA; defer WQ/up and Mx to Heme/ onc; ^ed Fe Sats noted HTN: Current BP meds as reviewed. See orders for changes. 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 - will ct IVf for now and defer further eval mangement to Hematology Discussed Plan of Care with family (daughter) at bedside COMMENT/RELEVANT DATA Meds Current Medications Medications (Trade) Dose Ordered Sig/Sherri Start Time Stop Time Status Last Admin Dose Admin Acetaminophen (Tylenol) 325 mg PRN Q6HRS PRN 05/28/16 19:00 Acetaminophen/ Hydrocodone Bitart (Lortab 5/325) 1 tab PRN Q6HRS PRN 05/28/16 19:00 06/02/16 11:50 1 TAB Albuterol Sulfate (Ventolin Neb Soln) 2.5 mg PRN Q4HRS PRN 05/28/16 19:00 Bupivacaine HCl (Sensorcaine-Mpf 0.25%) 10 ml 1X ONCE 06/02/16 16:30 06/02/16 16:31 DC 06/02/16 16:46 10 ML Hydralazine HCl (Apresoline) 10 mg PRN Q4HRS PRN 05/28/16 19:00 Lactulose 20 gm BID 06/02/16 12:00 06/02/16 11:49 20 GM Lactulose 20 gm 20 gm [id number] 05/31/16 14:00 06/02/16 10:11 DC 05/31/16 14:59 20 GM Magnesium Sulfate/ Dextrose 50 ml @ 25 mls/hr PRN DAILY PRN 06/01/16 15:30 Methylprednisolone Acetate (Depo-Medrol 40mg Vial) 40 mg 1X ONCE 06/02/16 16:45 06/02/16 16:46 DC 06/02/16 16:45 40 MG Ondansetron HCl (Zofran) 4 mg PRN Q8HRS PRN 05/28/16 19:00 05/30/16 03:36 4 MG Ondansetron HCl 4 mg 4 mg PRN Q8HRS PRN 05/28/16 17:15 05/29/16 09:22 DC Pantoprazole Sodium (Protonix) 40 mg DAILYAC 05/29/16 10:00 06/02/16 08:36 40 MG Potassium Chloride (Klor-Con) 40 meq 1X ONCE 06/02/16 09:00 06/02/16 09:01 DC 06/02/16 08:39 40 MEQ Rifaximin (Xifaxan) 550 mg Q12HR 05/30/16 15:00 06/02/16 08:36 550 MG Sodium Bicarbonate/ Sodium Chloride (Iv Sodium Chloride 0.45%) 1,075 ml @ 100 mls/hr [id number] 06/01/16 15:45 06/02/16 11:51 100 MLS/HR Sodium Chloride (Iv Sodium Chloride 0.9% 1000ml Bag) 1,000 ml @ 100 mls/hr Q10H 05/28/16 19:00 06/01/16 15:33 DC 06/01/16 01:26 75 MLS/HR Lab Laboratory Tests Test 06/01/16 19:55 06/02/16 02:53 Urine Random Sodium 102mmol/L (Not Estab.) White Blood Count 7.3x10^3/uL (4.0-11.0) Red Blood Count 2.24x10^6/uL (3.50-5.40) Hemoglobin 7.8g/dL (12.0-15.5) Hematocrit 22.5% (36.0-47.0) Mean Corpuscular Volume 100fL (79-100) Mean Corpuscular Hemoglobin 35pg (25-35) Mean Corpuscular Hemoglobin Concent 35g/dL (31-37) Red Cell Distribution Width 18.6% (11.5-14.5) Platelet Count 90x10^3/uL (140-400) Neutrophils (%) (Auto) 55% (31-73) Lymphocytes (%) (Auto) 20% (24-48) Monocytes (%) (Auto) 18% (0-9) Eosinophils (%) (Auto) 7% (0-3) Basophils (%) (Auto) 1% (0-3) Neutrophils # (Auto) 4.1x10^3uL (1.8-7.7) Lymphocytes # (Auto) 1.4x10^3/uL (1.0-4.8) Monocytes # (Auto) 1.3x10^3/uL (0.0-1.1) Eosinophils # (Auto) 0.5x10^3/uL (0.0-0.7) Basophils # (Auto) 0.1x10^3/uL (0.0-0.2) Sodium Level 141mmol/L (136-145) Potassium Level 3.3mmol/L (3.5-5.1) Chloride Level 109mmol/L (98-107) Carbon Dioxide Level 19mmol/L (21-32) Anion Gap 13 (6-14) Blood Urea Nitrogen 25mg/dL (7-20) Creatinine 3.6mg/dL (0.6-1.0) Estimated GFR (Cockcroft-Gault) 12.4 Glucose Level 97mg/dL (70-99) Calcium Level 8.3mg/dL (8.5-10.1) Phosphorus Level 3.8mg/dL (2.6-4.7) Magnesium Level 1.0mg/dL (1.8-2.4) Ammonia 116mcmol/L (11-34) Albumin 1.9g/dL (3.4-5.0) WIL GRANDE MD Jun 02, 2016 18:16
[2016-06-02] MEDS ORDERED: POTASSIUM CHLORIDE IV SCH (18:30)
[2016-06-02] MEDS ORDERED: SODIUM BICARBONATE IV SCH (18:30)
[2016-06-02] MEDS ORDERED: [UNRECOGNIZED DRUG - OTHER] IV SCH (18:30)
[2016-06-02 19:00] VITALS: BP 132/74
[2016-06-02 23:00] VITALS: BP 123/70
[2016-06-03] VITALS (16 sets, daily range): BP systolic 111–149; BP diastolic 71–85
[2016-06-03 04:03] LABS: CALCIUM 8.5 mg/dL (8.5-10.1); CREATININE 3.6 mg/dL (0.6-1.0); GFR 12.4
[2016-06-03 04:33] LABS: BASO % 0 % (0-3); EOS % 0 % (0-3); HEMATOCRIT 23.6 % (36.0-47.0); HEMOGLOBIN 8.4 g/dL (12.0-15.5); LYMPH # 0.6 x10^3/uL (1.0-4.8); LYMPH % 12 % (24-48); MEAN CORPUSCULAR HEMOGLOBIN 35 pg (25-35); MEAN CORPUSCULAR HGB CONC 36 g/dL (31-37); MEAN CORPUSCULAR VOLUME 98 fL (79-100); MONO % 2 % (0-9); NEUT % 86 % (31-73); PLATELET COUNT 91 x10^3/uL (140-400); WHITE BLOOD COUNT 5.2 x10^3/uL (4.0-11.0)
--- NOTE | 2016-06-03 08:49 | PDOC ---
Subjective: Subjective: Onc f/u- Anemia, thrombocytopenia Pt with no change. No confusion. Objective: Vital Signs: Vital Signs Date Time Temp Pulse Resp B/P Pulse Ox O2 Delivery O2 Flow Rate FiO2 06/03/16 07:20 99.0 103 18 132/76 93 Room Air 99.0 Physical Exam: Extremities: No edema General: Alert, Oriented X3, Cooperative, No acute distress Psych/Mental Status: Mental status NL, Mood NL Labs/Imaging: CBC unchanged Immunofixation- IgG lambda monoclonal protein However, SPEP with 2 spikes, not monoclonal, and IgG levels not elevated while IgM and IgA are elevated. Cr 3.6 down from 4.3 Assessment/Plan A/P: 71 yo F with: 1. Anemia, Rouleaux formation initially on smear. 2. Thrombocytopenia, plt ~ 90- stable 3. Mildly low haptoglobin- Likely due to liver d/f from alcohol. No evidence of hemolysis. 4. Acute vs chronic kidney disease 5. Ho alcohol abuse up to admission per daughter; pt denies. Myeloma w/u with conflicting results. Immunofixation revealed an IgG lambda monoclonal protein but SPEP had 2 spikes, not monoclonal. Furthermore confusing is that IgG levels not elevated while IgM and IgA are elevated. Both kappa and lambda chains are elevated causing a very near normal ratio, which generally indicates an origin outside of the bone marrow, not Myeloma. Plan: - Bone marrow biopsy - Skeletal survey - Suspect cytopenias related to alcohol abuse; continue to monitor and hold on further eval unless counts continue to drop. Alcohol cessation again encouraged with pt. - Will set up f/u late next week to review path results. Ok to DC from onc standpoint. D/W Daughter and Dr. Rivas. NAVEED SEPULVEDA DO Jun 03, 2016 08:49
[2016-06-03] MEDS: LACTULOSE 20 GM/30 ML SOLUTION. PO SCH (09:00)
[2016-06-03] MEDS: MAGNESIUM OXIDE 400 MG TABLET PO SCH (09:00)
[2016-06-03] MEDS ORDERED: MAGNESIUM SULFATE 4GM 100 ML IV ONE (09:00)
[2016-06-03] MEDS ORDERED: LACTULOSE 20 GM/30 ML SOLUTION. PO PRN (09:00)
--- NOTE | 2016-06-03 09:04 | RAD ---
EXAM: Knees bilateral standing. HISTORY: Bilateral knee pain. COMPARISON: 09/21/2010. FINDINGS: There is chondrocalcinosis of the menisci bilaterally, worse on the left than right. Joint spaces are maintained bilaterally. There are tiny osteophytes along the medial and lateral compartments on the left greater than right. Alignment is maintained. Osteopenia is at least mild. No fractures are identified. IMPRESSION: 1. 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 2. Chondrocalcinosis of the menisci is usually a senescent finding, but also correlate to exclude deposition diseases such as CPPD.
[2016-06-03] MEDS: ACETAMINOPHEN 325 MG TABLET. PO PRN ×2 (10:10→20:18)
[2016-06-03] MEDS: RIFAXIMIN 550 MG TABLET PO SCH ×2 (10:10→20:18)
[2016-06-03] MEDS: PANTOPRAZOLE 40 MG TABLET. PO SCH (10:10)
[2016-06-03] MEDS: SODIUM BICARBONATE VIAL 75 MEQ in IV 1/2 NORMAL SALINE 1,000 ML IV SCH ×2 (10:11→16:28)
[2016-06-03] MEDS ORDERED: LIDOCAINE 1% / SOD BICARB 8.4% 20 ML VIAL. IJ ONE ×2 (10:23→10:45)
[2016-06-03] MEDS ORDERED: FENTANYL PF 250 MCG/5 ML VIAL. ONE (10:24)
[2016-06-03] MEDS ORDERED: MIDAZOLAM HCL/PF 5 MG/5 ML VIAL ONE (10:24)
--- NOTE | 2016-06-03 10:26 | PDOC ---
PROGRESS NOTES Subjective Subjective She denies any knee or hip pain. Objective Objective Vital Signs Date Time Temp Pulse Resp B/P Pulse Ox O2 Delivery O2 Flow Rate FiO2 06/03/16 07:20 99.0 103 18 132/76 93 Room Air 99.0 Intake and Output 06/03/16 07:00 Intake Total 1824 ml Output Total 550 ml Balance 1274 ml Intake Oral 320 ml IV Total 1504 ml Output Urine Total 550 ml # Voids 2 # Bowel Movements 6 Physical Exam Physical Exam She is alert and comfortable and x-rays revealed DJD and chondrocalcinosis of menisci. Assessment Assessment Problems Medical Problems: (1) Altered mental status Status: Acute (2) Hyperammonemia Status: Acute Plan Plan of Care To home with family when medically stable. Comment Review of Relevant I have reviewed the following items amy (where applicable) has been applied. Labs Laboratory Tests Test 06/01/16 19:55 06/02/16 02:53 06/02/16 18:35 06/03/16 02:55 Urine Random Sodium 102mmol/L (Not Estab.) White Blood Count 7.3x10^3/uL (4.0-11.0) 5.2x10^3/uL (4.0-11.0) Red Blood Count 2.24x10^6/uL (3.50-5.40) 2.40x10^6/uL (3.50-5.40) Hemoglobin 7.8g/dL (12.0-15.5) 8.4g/dL (12.0-15.5) Hematocrit 22.5% (36.0-47.0) 23.6% (36.0-47.0) Mean Corpuscular Volume 100fL (79-100) 98fL (79-100) Mean Corpuscular Hemoglobin 35pg (25-35) 35pg (25-35) Mean Corpuscular Hemoglobin Concent 35g/dL (31-37) 36g/dL (31-37) Red Cell Distribution Width 18.6% (11.5-14.5) 19.0% (11.5-14.5) Platelet Count 90x10^3/uL (140-400) 91x10^3/uL (140-400) Neutrophils (%) (Auto) 55% (31-73) 86% (31-73) Lymphocytes (%) (Auto) 20% (24-48) 12% (24-48) Monocytes (%) (Auto) 18% (0-9) 2% (0-9) Eosinophils (%) (Auto) 7% (0-3) 0% (0-3) Basophils (%) (Auto) 1% (0-3) 0% (0-3) Neutrophils # (Auto) 4.1x10^3uL (1.8-7.7) 4.5x10^3uL (1.8-7.7) Lymphocytes # (Auto) 1.4x10^3/uL (1.0-4.8) 0.6x10^3/uL (1.0-4.8) Monocytes # (Auto) 1.3x10^3/uL (0.0-1.1) 0.1x10^3/uL (0.0-1.1) Eosinophils # (Auto) 0.5x10^3/uL (0.0-0.7) 0.0x10^3/uL (0.0-0.7) Basophils # (Auto) 0.1x10^3/uL (0.0-0.2) 0.0x10^3/uL (0.0-0.2) Sodium Level 141mmol/L (136-145) 139mmol/L (136-145) Potassium Level 3.3mmol/L (3.5-5.1) 4.0mmol/L (3.5-5.1) 5.0mmol/L (3.5-5.1) Chloride Level 109mmol/L (98-107) 107mmol/L (98-107) Carbon Dioxide Level 19mmol/L (21-32) 20mmol/L (21-32) Anion Gap 13 (6-14) 12 (6-14) Blood Urea Nitrogen 25mg/dL (7-20) 27mg/dL (7-20) Creatinine 3.6mg/dL (0.6-1.0) 3.6mg/dL (0.6-1.0) Estimated GFR (Cockcroft-Gault) 12.4 12.4 Glucose Level 97mg/dL (70-99) 153mg/dL (70-99) Calcium Level 8.3mg/dL (8.5-10.1) 8.5mg/dL (8.5-10.1) Phosphorus Level 3.8mg/dL (2.6-4.7) 4.0mg/dL (2.6-4.7) Magnesium Level 1.0mg/dL (1.8-2.4) 1.1mg/dL (1.8-2.4) Ammonia 116mcmol/L (11-34) Albumin 1.9g/dL (3.4-5.0) 2.0g/dL (3.4-5.0) Laboratory Tests Test 06/02/16 18:35 06/03/16 02:55 Potassium Level 4.0mmol/L (3.5-5.1) 5.0mmol/L (3.5-5.1) White Blood Count 5.2x10^3/uL (4.0-11.0) Red Blood Count 2.40x10^6/uL (3.50-5.40) Hemoglobin 8.4g/dL (12.0-15.5) Hematocrit 23.6% (36.0-47.0) Mean Corpuscular Volume 98fL (79-100) Mean Corpuscular Hemoglobin 35pg (25-35) Mean Corpuscular Hemoglobin Concent 36g/dL (31-37) Red Cell Distribution Width 19.0% (11.5-14.5) Platelet Count 91x10^3/uL (140-400) Neutrophils (%) (Auto) 86% (31-73) Lymphocytes (%) (Auto) 12% (24-48) Monocytes (%) (Auto) 2% (0-9) Eosinophils (%) (Auto) 0% (0-3) Basophils (%) (Auto) 0% (0-3) Neutrophils # (Auto) 4.5x10^3uL (1.8-7.7) Lymphocytes # (Auto) 0.6x10^3/uL (1.0-4.8) Monocytes # (Auto) 0.1x10^3/uL (0.0-1.1) Eosinophils # (Auto) 0.0x10^3/uL (0.0-0.7) Basophils # (Auto) 0.0x10^3/uL (0.0-0.2) Sodium Level 139mmol/L (136-145) Chloride Level 107mmol/L (98-107) Carbon Dioxide Level 20mmol/L (21-32) Anion Gap 12 (6-14) Blood Urea Nitrogen 27mg/dL (7-20) Creatinine 3.6mg/dL (0.6-1.0) Estimated GFR (Cockcroft-Gault) 12.4 Glucose Level 153mg/dL (70-99) Calcium Level 8.5mg/dL (8.5-10.1) Phosphorus Level 4.0mg/dL (2.6-4.7) Magnesium Level 1.1mg/dL (1.8-2.4) Albumin 2.0g/dL (3.4-5.0) Microbiology 05/28/16 Blood Culture - Final, Complete NO GROWTH AFTER 5 DAYS Medications Current Medications Sodium Chloride (Iv Sodium Chloride 0.9% 1000ml Bag) 1,000 ml @ 1,000 mls/hr 1X ONCE IV Last administered on 05/28/16 16:07; Start 05/28/16 at 15:45; Stop 05/28/16 at 16:44; Status DC Ondansetron HCl 4 mg 4 mg PRN Q8HRS PRN IV NAUSEA/VOMITING; Start 05/28/16 at 17 :15; Stop 05/29/16 at 09:22; Status DC Sodium Chloride (Iv Sodium Chloride 0.9% 1000ml Bag) 1,000 ml @ 125 mls/hr Q8H IV ; Start 05/28/16 at 17:07; Stop 05/28/16 at 18:38; Status DC Lactulose 20 gm 20 gm PRN BID PRN PO CONSTIPATION; Start 05/28/16 at 18:45; Stop 05/29/16 at 10:00; Status DC Sodium Chloride (Iv Sodium Chloride 0.9% 1000ml Bag) 1,000 ml @ 100 mls/hr Q10H IV Last administered on 06/01/16 01:26; Start 05/28/16 at 19:00; Stop at 15:33; Status DC Acetaminophen (Tylenol) 325 mg PRN Q6HRS PRN PO MILD PAIN / TEMP Last administered on 06/03/16 10:10; Start 05/28/16 at 19:00 Acetaminophen/ Hydrocodone Bitart (Lortab 5/325) 1 tab PRN Q6HRS PRN PO MODERATE TO SEVERE PAIN Last administered on 06/02/16 11:50; Start 05/28/16 at 19 :00 Hydralazine HCl (Apresoline) 10 mg PRN Q4HRS PRN IVP ELEVATED BP, SEE COMMENTS ; Start 05/28/16 at 19:00 Ondansetron HCl (Zofran) 4 mg PRN Q8HRS PRN IV NAUSEA/VOMITING Last administered on 05/30/16 03:36; Start 05/28/16 at 19:00 Albuterol Sulfate (Ventolin Neb Soln) 2.5 mg PRN Q4HRS PRN NEB SHORTNESS OF BREATH; Start 05/28/16 at 19:00 Lactulose 20 gm BID PO Last administered on 05/30/16 08:29; Start 05/29/16 at 10 :00; Stop 05/30/16 at 14:43; Status DC Pantoprazole Sodium (Protonix) 40 mg DAILYAC PO Last administered on 06/03/16 10:10; Start 05/29/16 at 10:00 Lactulose 20 gm TID PO ; Start 05/31/16 at 09:00; Stop 05/31/16 at 09:00; Status DC Lactulose 20 gm TID PO Last administered on 05/31/16 08:33; Start 05/30/16 at 14 :45; Stop 05/31/16 at 09:45; Status DC Rifaximin (Xifaxan) 550 mg Q12HR PO Last administered on 06/03/16 10:10; Start 05/30/16 at 15:00 Lactulose 20 gm 20 gm [id number] PO Last administered on 05/31/16 14:59; Start at 14:00; Stop 06/02/16 at 10:11; Status DC Magnesium Sulfate/ Dextrose 50 ml @ 25 mls/hr PRN DAILY PRN IV for Mag < 1.7 on am labs; Start 06/01/16 at 15:30 Sodium Bicarbonate/ Sodium Chloride (Iv Sodium Chloride 0.45%) 1,075 ml @ 100 mls/hr [id number] IV Last administered on 06/02/16 11:51; Start 06/01/16 at 15:45; Stop 06/02/16 at 18:18; Status DC Potassium Chloride (Klor-Con) 40 meq 1X ONCE PO Last administered on 06/02/16 08:39; Start 06/02/16 at 09:00; Stop 06/02/16 at 09:01; Status DC Lactulose 20 gm PRN BID PRN PO CONSTIPATION; Start 06/03/16 at 09:00; Stop at 12:00 Lactulose 20 gm BID PO Last administered on 06/02/16 11:49; Start 06/02/16 at 12 :00 Methylprednisolone Acetate (Depo-Medrol 40mg Vial) 40 mg 1X ONCE IM Last administered on 06/02/16 16:46; Start 06/02/16 at 16:30; Stop 06/02/16 at 16:31; Status DC Bupivacaine HCl (Sensorcaine-Mpf 0.25%) 10 ml 1X ONCE IJ Last administered on 06/02/16 16:46; Start 06/02/16 at 16:30; Stop 06/02/16 at 16:31; Status DC Methylprednisolone Acetate 40 mg 40 mg 1X ONCE IM Last administered on 16:45; Start 06/02/16 at 16:45; Stop 06/02/16 at 16:46; Status DC Sodium Bicarbonate/ Potassium Chloride/Sodium Chloride (Iv Sodium Chloride 0.45% ) 1,095 ml @ 100 mls/hr [id number] IV Last administered on 06/02/16 21:05; Start 06/02/16 at 18:30; Stop 06/03/16 at 05:26; Status DC Potassium Chloride 40 meq 40 meq 1X PRN PRN PO if repeat K < 3.7; Start at 18:15; Stop 06/03/16 at 05:00; Status DC Sodium Bicarbonate 75 meq/Sodium Chloride 1,075 ml @ 100 mls/hr [id number] IV Last administered on 06/03/16 10:11; Start 06/03/16 at 06:00 Magnesium Sulfate/ Dextrose (Magnesium Sulfate PREMIX 4GM) 100 ml @ 25 mls/hr 1X ONCE IV Last administered on 3/8/17at 10:10; Start 06/03/16 at 09:00; Stop 06/03/16 at 12:59 Magnesium Oxide (Magnesium Oxide) 400 mg DAILY PO ; Start 06/03/16 at 09:00 Active Scripts Active Pantoprazole Sodium 40 Mg Tablet.dr 40 Mg PO DAILYAC 30 Days Reported Neomycin Sulfate 500 Mg Tablet 1 Tab PO BID Spironolactone 50 Mg Tablet 1 Tab PO DAILY Mag-Oxide (Magnesium Oxide) 400 Mg Tablet 2 Tab PO BID Vitamin D3 (Cholecalciferol (Vitamin D3)) 400 Unit Tablet 400 Unit PO BID Fish Oil Conc 1,000 mg Softgel ([place]-3/Dha/Epa/Fish Oil) 1,000 Mg Capsule 3, 000 Mg PO DAILY Multiple Vitamin (Multivitamin With Minerals) 1 Each Tablet 1 Each PO Corzide 40-5 Tablet (Nadolol/Bendroflumethiazide) 1 Each Tablet 0.5 Tab PO DAILY Coenzyme Q10 (Ubidecarenone) 100 Mg Capsule 100 Mg PO DAILY Calcium (Calcium Carbonate) 600 Mg Tablet 600 Mg PO BID Vitals/I & O Vital Sign - Last 24 Hours 06/02/16 06/02/16 06/02/16 06/02/16 10:30 11:50 12:38 14:35 Temp 96.8 97.0 96.8 97.0 Pulse 93 89 Resp 18 16 16 18 B/P 124/73 124/80 Pulse Ox 92 92 O2 Delivery Room Air Room Air Room Air Room Air 06/02/16 06/02/16 06/02/16 06/03/16 19:00 20:00 23:00 03:00 Temp 97.6 98.6 97.9 97.6 98.6 97.9 Pulse 90 99 90 Resp 18 18 18 B/P 132/74 123/70 130/75 Pulse Ox 92 91 94 O2 Delivery Room Air Room Air Room Air Room Air 06/03/16 07:20 Temp 99.0 99.0 Pulse 103 Resp 18 B/P 132/76 Pulse Ox 93 O2 Delivery Room Air Intake and Output 06/02/16 06/02/16 06/03/16 15:00 23:00 07:00 Intake Total 230 ml 499 ml 1095 ml Output Total 300 ml 250 ml Balance -70 ml 249 ml 1095 ml CESARIO ABARCA MD Jun 03, 2016 10:26
[2016-06-03] MEDS ORDERED: MIDAZOLAM HCL/PF 5 MG/5 ML VIAL IV ONE (10:45)
[2016-06-03] MEDS ORDERED: FENTANYL PF 250 MCG/5 ML VIAL. IV ONE (10:45)
--- NOTE | 2016-06-03 11:01 | PDOC ---
Subjective: Subjective: Out for bone marrow biopsy. Objective: Objective: Per RN - still confused, refusing lactulose. Vital Signs: Vital Signs Date Time Temp Pulse Resp B/P Pulse Ox O2 Delivery O2 Flow Rate FiO2 06/03/16 10:54 113 14 99 Nasal Cannula 2.0 06/03/16 07:20 99.0 132/76 99.0 Labs: Laboratory Tests Test 06/02/16 18:35 06/03/16 02:55 Potassium Level 4.0mmol/L 5.0mmol/L White Blood Count 5.2x10^3/uL Red Blood Count 2.40x10^6/uL Hemoglobin 8.4g/dL Hematocrit 23.6% Mean Corpuscular Volume 98fL Mean Corpuscular Hemoglobin 35pg Mean Corpuscular Hemoglobin Concent 36g/dL Red Cell Distribution Width 19.0% Platelet Count 91x10^3/uL Neutrophils (%) (Auto) 86% Lymphocytes (%) (Auto) 12% Monocytes (%) (Auto) 2% Eosinophils (%) (Auto) 0% Basophils (%) (Auto) 0% Neutrophils # (Auto) 4.5x10^3uL Lymphocytes # (Auto) 0.6x10^3/uL Monocytes # (Auto) 0.1x10^3/uL Eosinophils # (Auto) 0.0x10^3/uL Basophils # (Auto) 0.0x10^3/uL Sodium Level 139mmol/L Chloride Level 107mmol/L Carbon Dioxide Level 20mmol/L Anion Gap 12 Blood Urea Nitrogen 27mg/dL Creatinine 3.6mg/dL Estimated GFR (Cockcroft-Gault) 12.4 Glucose Level 153mg/dL Calcium Level 8.5mg/dL Phosphorus Level 4.0mg/dL Magnesium Level 1.1mg/dL Albumin 2.0g/dL PE: no exam A/P: Alcoholic cirrhosis, hyperammonemia -CT in 01/2016 showed nodular liver (cirrhosis), Doppler 05/2016 unrevealing, AFP WNL -on Xifaxin BID, refuses lactulose, 6 stools charted / H/o Billroth II, GERD -last EGD 12/2015, on PPI Anemia/thrombocytopenia -heme/onc following KVNG -renal following -- Bone marrow biopsy today. Ammonia to be rechecked. IVY BETH Jun 03, 2016 11:01
--- NOTE | 2016-06-03 11:12 | PDOC ---
MODERATE SEDATION ASSESSMENT RISKS/ALTERNATIVES Risks/Alternatives Risks and alternatives of this type of sedation and procedure discussed with: RISK/ALTERNATIVES: Patient H & P ON CHART H & P H & P on chart and reviewed for co-morbid conditions and appropriate labs. H&P ON CHART: Yes STATUS PREG STATUS ASSESSED: N/A MEDS/ALLERGIES REVIEWED Meds/Allergies Reviewed Medications and Allergies including time and route of recently administered narcotics and sedatives. MEDS/ALLERGIES REVIEWED: Yes ASA RATING ASA RATING: II AIRWAY ASSESSMENT Airway Assessment Airway patency, oral function limitations, presence of caps, crowns, dentures, partials, and ability to extend neck assessed. AIRWAY ASSESSMENT: Yes MALLAMPATI SCORE MALLAMPATI SCORE: II PRE-SEDATION ASSESSMENT PRE-SEDATION ASSESSMENT: Yes SHILA FLORES MD Jun 03, 2016 11:12
--- NOTE | 2016-06-03 11:17 | PDOC ---
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 No apparent complication. Disposition Disposition From IR/CT return to [facility] for recovery. F/u with Dr Lindsey. Full report to follow. SHILA FLORES MD Jun 03, 2016 11:17
--- NOTE | 2016-06-03 11:59 | PDOC ---
SUBJECTIVE ROS KVNG/ ? CKD III DOing OK overall CVS: no Orthopnea, no CP RESP: no SOB, no SALINAS GI: no Nausea, no Vomiting : no Dysuria, no Urgency OBJECTIVE Vital Signs Vital Signs Date Time Temp Pulse Resp B/P Pulse Ox O2 Delivery O2 Flow Rate FiO2 06/03/16 10:58 14 99 Nasal Cannula 2.0 06/03/16 10:54 113 06/03/16 07:20 99.0 132/76 99.0 I & 0 Intake and Output 06/03/16 07:00 Intake Total 1824 ml Output Total 550 ml Balance 1274 ml Intake Oral 320 ml IV Total 1504 ml Output Urine Total 550 ml # Voids 2 # Bowel Movements 6 PHYSICAL EXAM Physical Exam GEN: Awake, Oriented x 2, In no distress EYES: Vision Unchanged, Conjunctiva Normal EN: No EN Drainage, Mucous Membranes moist NECK: no JVD, min JVP, Supple, no Thyromegaly CVS: S1S2, + Murmur, No Gallop, No Rub,no Edema RESP: no Rales, no Rhonchi,no Acc. 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 Current fluid and E-lyte status does not necessitate emergent need for dialysis. Will re-evaluate for dialysis in the am. Met Acidosis - Ct IVF with Bicarb ANEMIA; defer WQ/up and Mx to Heme/ onc; ^ed Fe Sats noted HTN: Current BP meds as reviewed. See orders for changes. 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 - will ct IVf for now and defer further eval mangement to Hematology (once BMBx is avail) Low Mag - IV Mag as ordered COMMENT/RELEVANT DATA Meds Current Medications Medications (Trade) Dose Ordered Sig/Sherri Start Time Stop Time Status Last Admin Dose Admin Acetaminophen (Tylenol) 325 mg PRN Q6HRS PRN 05/28/16 19:00 06/03/16 10:10 325 MG Acetaminophen/ Hydrocodone Bitart (Lortab 5/325) 1 tab PRN Q6HRS PRN 05/28/16 19:00 06/02/16 11:50 1 TAB Albuterol Sulfate (Ventolin Neb Soln) 2.5 mg PRN Q4HRS PRN 05/28/16 19:00 Bupivacaine HCl (Sensorcaine-Mpf 0.25%) 10 ml 1X ONCE 06/02/16 16:30 06/02/16 16:31 DC 06/02/16 16:46 10 ML Fentanyl Citrate (Fentanyl 5ml Vial) 150 mcg 1X ONCE 06/03/16 10:45 06/03/16 10:46 DC 06/03/16 10:58 125 MCG Hydralazine HCl (Apresoline) 10 mg PRN Q4HRS PRN 05/28/16 19:00 Lactulose 20 gm DAILY 06/04/16 09:00 Lactulose 20 gm 20 gm [id number] 05/31/16 14:00 06/02/16 10:11 DC 05/31/16 14:59 20 GM Lidocaine/Sodium Bicarbonate (Buffered Lidocaine 1%) 20 ml 1X ONCE 06/03/16 10:45 06/03/16 10:46 DC 06/03/16 10:57 7 ML Magnesium Oxide (Magnesium Oxide) 400 mg DAILY 06/03/16 09:00 Magnesium Sulfate/ Dextrose (Magnesium Sulfate PREMIX 4GM) 100 ml @ 25 mls/hr 1X ONCE 06/03/16 09:00 06/03/16 12:59 06/03/16 10:10 25 MLS/HR Methylprednisolone Acetate (Depo-Medrol 40mg Vial) 40 mg 1X ONCE 06/02/16 16:30 06/02/16 16:31 DC 06/02/16 16:46 40 MG Methylprednisolone Acetate 40 mg 40 mg 1X ONCE 06/02/16 16:45 06/02/16 16:46 DC 06/02/16 16:45 40 MG Midazolam HCl (Versed) 3 mg 1X ONCE 06/03/16 10:45 06/03/16 10:46 DC 06/03/16 10:58 2.5 MG Ondansetron HCl (Zofran) 4 mg PRN Q8HRS PRN 05/28/16 19:00 05/30/16 03:36 4 MG Ondansetron HCl 4 mg 4 mg PRN Q8HRS PRN 05/28/16 17:15 05/29/16 09:22 DC Pantoprazole Sodium (Protonix) 40 mg DAILYAC 05/29/16 10:00 06/03/16 10:10 40 MG Potassium Chloride 40 meq 40 meq 1X PRN PRN 06/02/16 18:15 06/03/16 05:00 DC Potassium Chloride (Klor-Con) 40 meq 1X ONCE 06/02/16 09:00 06/02/16 09:01 DC 06/02/16 08:39 40 MEQ Rifaximin (Xifaxan) 550 mg Q12HR 05/30/16 15:00 06/03/16 10:10 550 MG Sodium Bicarbonate 75 meq/Sodium Chloride 1,075 ml @ 100 mls/hr [id number] 06/03/16 06:00 06/03/16 10:11 100 MLS/HR Sodium Bicarbonate/ Potassium Chloride/Sodium Chloride (Iv Sodium Chloride 0.45%) 1,095 ml @ 100 mls/hr [id number] 06/02/16 18:30 06/03/16 05:26 DC 06/02/16 21:05 100 MLS/HR Sodium Bicarbonate/ Sodium Chloride (Iv Sodium Chloride 0.45%) 1,075 ml @ 100 mls/hr [id number] 06/01/16 15:45 06/02/16 18:18 DC 06/02/16 11:51 100 MLS/HR Sodium Chloride (Iv Sodium Chloride 0.9% 1000ml Bag) 1,000 ml @ 100 mls/hr Q10H 05/28/16 19:00 06/01/16 15:33 DC 06/01/16 01:26 75 MLS/HR Lab Laboratory Tests Test 06/02/16 18:35 06/03/16 02:55 Potassium Level 4.0mmol/L (3.5-5.1) 5.0mmol/L (3.5-5.1) White Blood Count 5.2x10^3/uL (4.0-11.0) Red Blood Count 2.40x10^6/uL (3.50-5.40) Hemoglobin 8.4g/dL (12.0-15.5) Hematocrit 23.6% (36.0-47.0) Mean Corpuscular Volume 98fL (79-100) Mean Corpuscular Hemoglobin 35pg (25-35) Mean Corpuscular Hemoglobin Concent 36g/dL (31-37) Red Cell Distribution Width 19.0% (11.5-14.5) Platelet Count 91x10^3/uL (140-400) Neutrophils (%) (Auto) 86% (31-73) Lymphocytes (%) (Auto) 12% (24-48) Monocytes (%) (Auto) 2% (0-9) Eosinophils (%) (Auto) 0% (0-3) Basophils (%) (Auto) 0% (0-3) Neutrophils # (Auto) 4.5x10^3uL (1.8-7.7) Lymphocytes # (Auto) 0.6x10^3/uL (1.0-4.8) Monocytes # (Auto) 0.1x10^3/uL (0.0-1.1) Eosinophils # (Auto) 0.0x10^3/uL (0.0-0.7) Basophils # (Auto) 0.0x10^3/uL (0.0-0.2) Sodium Level 139mmol/L (136-145) Chloride Level 107mmol/L (98-107) Carbon Dioxide Level 20mmol/L (21-32) Anion Gap 12 (6-14) Blood Urea Nitrogen 27mg/dL (7-20) Creatinine 3.6mg/dL (0.6-1.0) Estimated GFR (Cockcroft-Gault) 12.4 Glucose Level 153mg/dL (70-99) Calcium Level 8.5mg/dL (8.5-10.1) Phosphorus Level 4.0mg/dL (2.6-4.7) Magnesium Level 1.1mg/dL (1.8-2.4) Albumin 2.0g/dL (3.4-5.0) WIL GRANDE MD Jun 03, 2016 11:59
--- NOTE | 2016-06-03 13:55 | PDOC ---
PROGRESS NOTES Chief Complaint Chief Complaint Altered mental status, hyperammonemia 1. Encephalopathy, possible metabolic, hepatic. 2. Acute kidney injury, ATN 3. Metabolic acidosis. 4. Thrombocytopenia 2/2 cirrhosis likely 5. Anemia, chronic. 6. Hyperbilirubinemia. 7. Alcoholism. 8. high INR 2/2 CIrrhosis likely 9, LEFT thigh pain, 2/2 OA? 10. hypomagnesemia plan 1. fu with renal, onco 2. fu with labs ordered for onco 3. ivf with bicarb 4. monitor Cr PTOT SW, will do HH cont rifaxin, cont lactulose to keep BM 2-3 times a day check left hip xr, dr. James consulted, got left knee steroid injection, better now BM bx today as per onco replete Mag 4g History of Present Illness History of Present Illness Patient lying in bed when evaluated this AM. No longer assigned a 1:1 sitter, as pt has showed less restlessness. Had a spike in ammonia level yesterday 112. Lactulose was increased and ammonia level has come back down. Pt reported diarrhea 2/2 to lactulose increase. Per oncology note- pt's daughter confirms that patient has been drinking up until admission. Pt had previously claimed to having been a couple months sober. pt refused lactulose yesterday, ammonia level high again today. altho i explained to her many times has to keep BM 2-3 times perday, only one time BM yesterday and today Cr better with ivf , still high left hip pain for a couple of weeks, ok to ambulate 6 BM yesterday, today ammonia is normal Vitals Vitals Vital Signs Date Time Temp Pulse Resp B/P Pulse Ox O2 Delivery O2 Flow Rate FiO2 06/03/16 10:58 14 99 Nasal Cannula 2.0 06/03/16 10:54 113 06/03/16 07:20 99.0 132/76 99.0 Physical Exam General: Alert, Oriented X3, Cooperative, No acute distress Heart: Regular rate Lungs: Clear Abdomen: Soft, No tenderness, Other (no ascites) Extremities: No edema Skin: Other (no bruising) Labs LABS Laboratory Tests Test 06/02/16 18:35 06/03/16 02:55 06/03/16 12:30 Potassium Level 4.0mmol/L (3.5-5.1) 5.0mmol/L (3.5-5.1) White Blood Count 5.2x10^3/uL (4.0-11.0) Red Blood Count 2.40x10^6/uL (3.50-5.40) Hemoglobin 8.4g/dL (12.0-15.5) Hematocrit 23.6% (36.0-47.0) Mean Corpuscular Volume 98fL (79-100) Mean Corpuscular Hemoglobin 35pg (25-35) Mean Corpuscular Hemoglobin Concent 36g/dL (31-37) Red Cell Distribution Width 19.0% (11.5-14.5) Platelet Count 91x10^3/uL (140-400) Neutrophils (%) (Auto) 86% (31-73) Lymphocytes (%) (Auto) 12% (24-48) Monocytes (%) (Auto) 2% (0-9) Eosinophils (%) (Auto) 0% (0-3) Basophils (%) (Auto) 0% (0-3) Neutrophils # (Auto) 4.5x10^3uL (1.8-7.7) Lymphocytes # (Auto) 0.6x10^3/uL (1.0-4.8) Monocytes # (Auto) 0.1x10^3/uL (0.0-1.1) Eosinophils # (Auto) 0.0x10^3/uL (0.0-0.7) Basophils # (Auto) 0.0x10^3/uL (0.0-0.2) Sodium Level 139mmol/L (136-145) Chloride Level 107mmol/L (98-107) Carbon Dioxide Level 20mmol/L (21-32) Anion Gap 12 (6-14) Blood Urea Nitrogen 27mg/dL (7-20) Creatinine 3.6mg/dL (0.6-1.0) Estimated GFR (Cockcroft-Gault) 12.4 Glucose Level 153mg/dL (70-99) Calcium Level 8.5mg/dL (8.5-10.1) Phosphorus Level 4.0mg/dL (2.6-4.7) Magnesium Level 1.1mg/dL (1.8-2.4) Albumin 2.0g/dL (3.4-5.0) Ammonia 29mcmol/L (11-34) Review of Systems Review of Systems no fever, chills, sob or chest pain Assessment and Plan Assessmemt and Plan Problems Medical Problems: (1) Altered mental status Status: Acute (2) Hyperammonemia Status: Acute Problems: Comment Review of Relevant I have reviewed the following items amy (where applicable) has been applied. Labs Laboratory Tests Test 06/01/16 19:55 06/02/16 02:53 06/02/16 18:35 06/03/16 02:55 Urine Random Sodium 102mmol/L (Not Estab.) White Blood Count 7.3x10^3/uL (4.0-11.0) 5.2x10^3/uL (4.0-11.0) Red Blood Count 2.24x10^6/uL (3.50-5.40) 2.40x10^6/uL (3.50-5.40) Hemoglobin 7.8g/dL (12.0-15.5) 8.4g/dL (12.0-15.5) Hematocrit 22.5% (36.0-47.0) 23.6% (36.0-47.0) Mean Corpuscular Volume 100fL (79-100) 98fL (79-100) Mean Corpuscular Hemoglobin 35pg (25-35) 35pg (25-35) Mean Corpuscular Hemoglobin Concent 35g/dL (31-37) 36g/dL (31-37) Red Cell Distribution Width 18.6% (11.5-14.5) 19.0% (11.5-14.5) Platelet Count 90x10^3/uL (140-400) 91x10^3/uL (140-400) Neutrophils (%) (Auto) 55% (31-73) 86% (31-73) Lymphocytes (%) (Auto) 20% (24-48) 12% (24-48) Monocytes (%) (Auto) 18% (0-9) 2% (0-9) Eosinophils (%) (Auto) 7% (0-3) 0% (0-3) Basophils (%) (Auto) 1% (0-3) 0% (0-3) Neutrophils # (Auto) 4.1x10^3uL (1.8-7.7) 4.5x10^3uL (1.8-7.7) Lymphocytes # (Auto) 1.4x10^3/uL (1.0-4.8) 0.6x10^3/uL (1.0-4.8) Monocytes # (Auto) 1.3x10^3/uL (0.0-1.1) 0.1x10^3/uL (0.0-1.1) Eosinophils # (Auto) 0.5x10^3/uL (0.0-0.7) 0.0x10^3/uL (0.0-0.7) Basophils # (Auto) 0.1x10^3/uL (0.0-0.2) 0.0x10^3/uL (0.0-0.2) Sodium Level 141mmol/L (136-145) 139mmol/L (136-145) Potassium Level 3.3mmol/L (3.5-5.1) 4.0mmol/L (3.5-5.1) 5.0mmol/L (3.5-5.1) Chloride Level 109mmol/L (98-107) 107mmol/L (98-107) Carbon Dioxide Level 19mmol/L (21-32) 20mmol/L (21-32) Anion Gap 13 (6-14) 12 (6-14) Blood Urea Nitrogen 25mg/dL (7-20) 27mg/dL (7-20) Creatinine 3.6mg/dL (0.6-1.0) 3.6mg/dL (0.6-1.0) Estimated GFR (Cockcroft-Gault) 12.4 12.4 Glucose Level 97mg/dL (70-99) 153mg/dL (70-99) Calcium Level 8.3mg/dL (8.5-10.1) 8.5mg/dL (8.5-10.1) Phosphorus Level 3.8mg/dL (2.6-4.7) 4.0mg/dL (2.6-4.7) Magnesium Level 1.0mg/dL (1.8-2.4) 1.1mg/dL (1.8-2.4) Ammonia 116mcmol/L (11-34) Albumin 1.9g/dL (3.4-5.0) 2.0g/dL (3.4-5.0) Test 06/03/16 12:30 Ammonia 29mcmol/L (11-34) Laboratory Tests Test 06/02/16 18:35 06/03/16 02:55 06/03/16 12:30 Potassium Level 4.0mmol/L (3.5-5.1) 5.0mmol/L (3.5-5.1) White Blood Count 5.2x10^3/uL (4.0-11.0) Red Blood Count 2.40x10^6/uL (3.50-5.40) Hemoglobin 8.4g/dL (12.0-15.5) Hematocrit 23.6% (36.0-47.0) Mean Corpuscular Volume 98fL (79-100) Mean Corpuscular Hemoglobin 35pg (25-35) Mean Corpuscular Hemoglobin Concent 36g/dL (31-37) Red Cell Distribution Width 19.0% (11.5-14.5) Platelet Count 91x10^3/uL (140-400) Neutrophils (%) (Auto) 86% (31-73) Lymphocytes (%) (Auto) 12% (24-48) Monocytes (%) (Auto) 2% (0-9) Eosinophils (%) (Auto) 0% (0-3) Basophils (%) (Auto) 0% (0-3) Neutrophils # (Auto) 4.5x10^3uL (1.8-7.7) Lymphocytes # (Auto) 0.6x10^3/uL (1.0-4.8) Monocytes # (Auto) 0.1x10^3/uL (0.0-1.1) Eosinophils # (Auto) 0.0x10^3/uL (0.0-0.7) Basophils # (Auto) 0.0x10^3/uL (0.0-0.2) Sodium Level 139mmol/L (136-145) Chloride Level 107mmol/L (98-107) Carbon Dioxide Level 20mmol/L (21-32) Anion Gap 12 (6-14) Blood Urea Nitrogen 27mg/dL (7-20) Creatinine 3.6mg/dL (0.6-1.0) Estimated GFR (Cockcroft-Gault) 12.4 Glucose Level 153mg/dL (70-99) Calcium Level 8.5mg/dL (8.5-10.1) Phosphorus Level 4.0mg/dL (2.6-4.7) Magnesium Level 1.1mg/dL (1.8-2.4) Albumin 2.0g/dL (3.4-5.0) Ammonia 29mcmol/L (11-34) Microbiology 05/28/16 Blood Culture - Final, Complete NO GROWTH AFTER 5 DAYS Medications Current Medications Sodium Chloride (Iv Sodium Chloride 0.9% 1000ml Bag) 1,000 ml @ 1,000 mls/hr 1X ONCE IV Last administered on 05/28/16 16:07; Start 05/28/16 at 15:45; Stop 05/28/16 at 16:44; Status DC Ondansetron HCl 4 mg 4 mg PRN Q8HRS PRN IV NAUSEA/VOMITING; Start 05/28/16 at 17 :15; Stop 05/29/16 at 09:22; Status DC Sodium Chloride (Iv Sodium Chloride 0.9% 1000ml Bag) 1,000 ml @ 125 mls/hr Q8H IV ; Start 05/28/16 at 17:07; Stop 05/28/16 at 18:38; Status DC Lactulose 20 gm 20 gm PRN BID PRN PO CONSTIPATION; Start 05/28/16 at 18:45; Stop 05/29/16 at 10:00; Status DC Sodium Chloride (Iv Sodium Chloride 0.9% 1000ml Bag) 1,000 ml @ 100 mls/hr Q10H IV Last administered on 06/01/16 01:26; Start 05/28/16 at 19:00; Stop at 15:33; Status DC Acetaminophen (Tylenol) 325 mg PRN Q6HRS PRN PO MILD PAIN / TEMP Last administered on 06/03/16 10:10; Start 05/28/16 at 19:00 Acetaminophen/ Hydrocodone Bitart (Lortab 5/325) 1 tab PRN Q6HRS PRN PO MODERATE TO SEVERE PAIN Last administered on 06/02/16 11:50; Start 05/28/16 at 19 :00 Hydralazine HCl (Apresoline) 10 mg PRN Q4HRS PRN IVP ELEVATED BP, SEE COMMENTS ; Start 05/28/16 at 19:00 Ondansetron HCl (Zofran) 4 mg PRN Q8HRS PRN IV NAUSEA/VOMITING Last administered on 05/30/16 03:36; Start 05/28/16 at 19:00 Albuterol Sulfate (Ventolin Neb Soln) 2.5 mg PRN Q4HRS PRN NEB SHORTNESS OF BREATH; Start 05/28/16 at 19:00 Lactulose 20 gm BID PO Last administered on 05/30/16 08:29; Start 05/29/16 at 10 :00; Stop 05/30/16 at 14:43; Status DC Pantoprazole Sodium (Protonix) 40 mg DAILYAC PO Last administered on 06/03/16 10:10; Start 05/29/16 at 10:00 Lactulose 20 gm TID PO ; Start 05/31/16 at 09:00; Stop 05/31/16 at 09:00; Status DC Lactulose 20 gm TID PO Last administered on 05/31/16 08:33; Start 05/30/16 at 14 :45; Stop 05/31/16 at 09:45; Status DC Rifaximin (Xifaxan) 550 mg Q12HR PO Last administered on 06/03/16 10:10; Start 05/30/16 at 15:00 Lactulose 20 gm 20 gm [id number] PO Last administered on 05/31/16 14:59; Start at 14:00; Stop 06/02/16 at 10:11; Status DC Magnesium Sulfate/ Dextrose 50 ml @ 25 mls/hr PRN DAILY PRN IV for Mag < 1.7 on am labs; Start 06/01/16 at 15:30 Sodium Bicarbonate/ Sodium Chloride (Iv Sodium Chloride 0.45%) 1,075 ml @ 100 mls/hr [id number] IV Last administered on 06/02/16 11:51; Start 06/01/16 at 15:45; Stop 06/02/16 at 18:18; Status DC Potassium Chloride (Klor-Con) 40 meq 1X ONCE PO Last administered on 06/02/16 08:39; Start 06/02/16 at 09:00; Stop 06/02/16 at 09:01; Status DC Lactulose 20 gm PRN BID PRN PO CONSTIPATION; Start 06/03/16 at 09:00; Stop at 12:00; Status DC Lactulose 20 gm BID PO Last administered on 06/02/16 11:49; Start 06/02/16 at 12 :00; Stop 06/03/16 at 10:38; Status DC Methylprednisolone Acetate (Depo-Medrol 40mg Vial) 40 mg 1X ONCE IM Last administered on 06/02/16 16:46; Start 06/02/16 at 16:30; Stop 06/02/16 at 16:31; Status DC Bupivacaine HCl (Sensorcaine-Mpf 0.25%) 10 ml 1X ONCE IJ Last administered on 06/02/16 16:46; Start 06/02/16 at 16:30; Stop 06/02/16 at 16:31; Status DC Methylprednisolone Acetate 40 mg 40 mg 1X ONCE IM Last administered on 16:45; Start 06/02/16 at 16:45; Stop 06/02/16 at 16:46; Status DC Sodium Bicarbonate/ Potassium Chloride/Sodium Chloride (Iv Sodium Chloride 0.45% ) 1,095 ml @ 100 mls/hr [id number] IV Last administered on 06/02/16 21:05; Start 06/02/16 at 18:30; Stop 06/03/16 at 05:26; Status DC Potassium Chloride 40 meq 40 meq 1X PRN PRN PO if repeat K < 3.7; Start at 18:15; Stop 06/03/16 at 05:00; Status DC Sodium Bicarbonate 75 meq/Sodium Chloride 1,075 ml @ 100 mls/hr [id number] IV Last administered on 06/03/16 10:11; Start 06/03/16 at 06:00 Magnesium Sulfate/ Dextrose (Magnesium Sulfate PREMIX 4GM) 100 ml @ 25 mls/hr 1X ONCE IV Last administered on 06/03/16 10:10; Start 06/03/16 at 09:00; Stop 06/03/16 at 12:59; Status DC Magnesium Oxide (Magnesium Oxide) 400 mg DAILY PO Last administered on 09:00; Start 06/03/16 at 09:00 Lidocaine/Sodium Bicarbonate (Buffered Lidocaine 1%) 20 ml STK-MED ONCE IJ ; Start 06/03/16 at 10:23; Stop 06/03/16 at 10:24; Status DC Midazolam HCl (Versed) 5 mg STK-MED ONCE .ROUTE ; Start 06/03/16 at 10:24; Stop 06/03/16 at 10:25; Status DC Fentanyl Citrate (Fentanyl 5ml Vial) 250 mcg STK-MED ONCE .ROUTE ; Start at 10:24; Stop 06/03/16 at 10:25; Status DC Lidocaine/Sodium Bicarbonate (Buffered Lidocaine 1%) 20 ml 1X ONCE IJ Last administered on 06/03/16 10:57; Start 06/03/16 at 10:45; Stop 06/03/16 at 10:46; Status DC Midazolam HCl (Versed) 3 mg 1X ONCE IV Last administered on 06/03/16 10:58; Start 06/03/16 at 10:45; Stop 06/03/16 at 10:46; Status DC Fentanyl Citrate (Fentanyl 5ml Vial) 150 mcg 1X ONCE IV Last administered on 10:58; Start 06/03/16 at 10:45; Stop 06/03/16 at 10:46; Status DC Lactulose 20 gm DAILY PO ; Start 06/04/16 at 09:00 Active Scripts Active Pantoprazole Sodium 40 Mg Tablet.dr 40 Mg PO DAILYAC 30 Days Reported Neomycin Sulfate 500 Mg Tablet 1 Tab PO BID Spironolactone 50 Mg Tablet 1 Tab PO DAILY Mag-Oxide (Magnesium Oxide) 400 Mg Tablet 2 Tab PO BID Vitamin D3 (Cholecalciferol (Vitamin D3)) 400 Unit Tablet 400 Unit PO BID Fish Oil Conc 1,000 mg Softgel ([place]-3/Dha/Epa/Fish Oil) 1,000 Mg Capsule 3, 000 Mg PO DAILY Multiple Vitamin (Multivitamin With Minerals) 1 Each Tablet 1 Each PO Corzide 40-5 Tablet (Nadolol/Bendroflumethiazide) 1 Each Tablet 0.5 Tab PO DAILY Coenzyme Q10 (Ubidecarenone) 100 Mg Capsule 100 Mg PO DAILY Calcium (Calcium Carbonate) 600 Mg Tablet 600 Mg PO BID Vitals/I & O Vital Sign - Last 24 Hours 06/02/16 06/02/16 06/02/16 06/02/16 14:35 19:00 20:00 23:00 Temp 97.0 97.6 98.6 97.0 97.6 98.6 Pulse 89 90 99 Resp 18 B/P 124/80 132/74 123/70 Pulse Ox 92 92 91 O2 Delivery Room Air Room Air Room Air Room Air 06/03/16 06/03/16 06/03/16 06/03/16 03:00 07:20 08:00 10:44 Temp 97.9 99.0 97.9 99.0 Pulse 90 103 103 Resp 22 B/P 130/75 132/76 Pulse Ox 94 93 99 O2 Delivery Room Air Room Air Room Air Nasal Cannula O2 Flow Rate 2.0 06/03/16 06/03/16 06/03/16 06/03/16 10:47 10:50 10:54 10:58 Pulse 103 105 113 Resp 21 21 14 14 Pulse Ox 98 98 99 99 O2 Delivery Nasal Cannula Nasal Cannula Nasal Cannula Nasal Cannula O2 Flow Rate 2.0 2.0 2.0 2.0 Intake and Output 06/02/16 06/02/16 06/03/16 15:00 23:00 07:00 Intake Total 230 ml 499 ml 1095 ml Output Total 300 ml 250 ml Balance -70 ml 249 ml 1095 ml ALOK JACKMAN MD Jun 03, 2016 13:55
--- NOTE | 2016-06-03 15:26 | RAD ---
EXAM: Complete osseous survey. HISTORY: Multiple myeloma. COMPARISON: 01/28/2016. FINDINGS: A frontal view of the chest is obtained. There are small pleural effusions on the left greater than right with associated atelectasis. There is no pneumothorax. The heart is not enlarged. There are surgical clips in the upper abdomen. There are no clear lytic lesions. Frontal and lateral views of the cervical, thoracic and lumbar spine are obtained. Degenerative disc disease is moderate to severe from C3 through C7. There is mild cervical dextrocurvature. No clear lytic lesions are seen. Carotid atherosclerotic calcifications are noted. Degenerative disc disease is moderate to severe in the mid thoracic spine. There are no clear fractures or lytic lesions. There is a mild to moderate upper thoracic levocurvature with a mild lower thoracic dextrocurvature. There is slight grade 1 anterolisthesis at L4-5. Degenerative disc disease is moderate to severe at L2-3, moderate at L3-4 and mild elsewhere. There are no clear lytic lesions. Calcifications in the left upper quadrant correspond with splenic granulomas on prior CT. A lateral view of the skull is obtained. There are no clear lytic lesions. Frontal views of both arms and forearms are obtained. There are no clear lytic lesions. There is mild glenohumeral osteoarthritis on the right. A frontal view of the pelvis is obtained. There are no clear lytic lesions. Frontal views of the femurs and legs are obtained. There are no clear lytic lesions. Chondrocalcinosis of the menisci is noted at both knees. There is mild medial compartmental osteoarthritis on the right. IMPRESSION: 1. No clear lytic lesions by radiographs. 2. Small bilateral pleural effusions. 3. Degenerative changes as above.
[2016-06-03] MEDS: HYDROCODONE/APAP 5/325MG TABLET. PO PRN (15:53)
--- NOTE | 2016-06-03 16:13 | RAD ---
CT-guided power drill assisted bone marrow aspiration and biopsy Indication: 71-year-old female with anemia, thrombocytopenia, and abnormal serum protein electrophoresis. Image guided bone marrow evaluation has been requested by hematology-oncology. Anesthesia: 19 minutes moderate sedation was provided utilizing a total of 2.5 mg Versed and 125 mcg been no, IV. The patient was appropriately monitored by a qualified independent observer throughout the time of moderate sedation. Procedure: Informed consent was obtained from the patient. She was placed prone on the CT scanner. Preliminary noncontrast CT images were obtained through pelvis. A right posterior skin site suitable for CT-guided bone marrow aspirate/biopsy from posterior right iliac bone was selected and marked. That area was prepped and draped in the usual sterile fashion. Conscious sedation was provided with IV Versed and fentanyl. Using aseptic technique, local anesthesia, and CT guidance, and the [employer] power mixer driver, successful percutaneous entry was achieved through posterior cortex of right iliac bone. Approximately 6 cc of bone marrow was promptly aspirated, and was submitted to hematology personnel in the CT suite. Using CT guidance, the [employer] power mixer driver was then utilized to obtain a single, 11-gauge core biopsy sample from marrow cavity of right iliac bone. The biopsy sample was submitted to pathology in formalin. A sterile dressing was applied over the biopsy skin puncture site. Patient tolerated the procedure well without apparent complication. Impression: Successful, uneventful CT-guided bone marrow aspirate and biopsy, utilizing the [employer] power mixer driver biopsy system, as described. PQRS compliance statement: One or more of the following individualized dose reduction techniques were utilized for this CT procedure: 1. Automated exposure control. 2. Adjustment of MA and/or KV according to patient size. 3. Iterative reconstruction technique.
[2016-06-03] MEDS: IPRATRPIUM/ALBUTEROL 0.5/2.5MG 3 ML NEBU. NEB SCH (20:43)
[2016-06-04] VITALS (7 sets, daily range): BP systolic 114–148; BP diastolic 66–75
[2016-06-04] MEDS: SODIUM BICARBONATE VIAL 75 MEQ in IV 1/2 NORMAL SALINE 1,000 ML IV SCH (03:30)
[2016-06-04 04:06] LABS: ALBUMIN 2.2 g/dL (3.4-5.0); CALCIUM 8.8 mg/dL (8.5-10.1); CREATININE 3.8 mg/dL (0.6-1.0); GFR 11.7; PHOSPHORUS 4.2 mg/dL (2.6-4.7); POTASSIUM 4.7 mmol/L (3.5-5.1)
[2016-06-04 04:36] LABS: BASO % 0 % (0-3); EOS % 0 % (0-3); HEMATOCRIT 21.8 % (36.0-47.0); HEMOGLOBIN 7.7 g/dL (12.0-15.5); LYMPH # 1.5 x10^3/uL (1.0-4.8); LYMPH % 12 % (24-48); MEAN CORPUSCULAR HEMOGLOBIN 35 pg (25-35); MEAN CORPUSCULAR HGB CONC 35 g/dL (31-37); MEAN CORPUSCULAR VOLUME 100 fL (79-100); MONO % 11 % (0-9); NEUT % 77 % (31-73); PLATELET COUNT 123 x10^3/uL (140-400); RED BLOOD COUNT 2.19 x10^6/uL (3.50-5.40); RED CELL DISTRIBUTION WIDTH 19.8 % (11.5-14.5); WHITE BLOOD COUNT 12.9 x10^3/uL (4.0-11.0)
--- NOTE | 2016-06-04 07:20 | RAD ---
Portable chest, 06/03/2016, 7:20 PM: History: Cough and fever Comparison is made to a study from earlier the same day. The heart size and pulmonary vascularity are within normal limits. There is a persistent left basilar opacity compatible with pleural fluid and underlying atelectasis. There is a suggestion of a small amount of right-sided pleural fluid. The findings are unchanged since earlier in the day. The upper lung painter are clear. There is a mild thoracic scoliosis with moderate multilevel degenerative change. IMPRESSION: Unchanged small pleural effusions, left greater than right.
[2016-06-04] MEDS: IPRATRPIUM/ALBUTEROL 0.5/2.5MG 3 ML NEBU. NEB SCH ×4 (07:40→19:23)
[2016-06-04] MEDS ORDERED: LACTULOSE 20 GM/30 ML SOLUTION. PO SCH (09:00)
[2016-06-04] MEDS: PANTOPRAZOLE 40 MG TABLET. PO SCH (09:02)
[2016-06-04] MEDS: RIFAXIMIN 550 MG TABLET PO SCH ×2 (09:03→21:05)
[2016-06-04] MEDS: MAGNESIUM OXIDE 400 MG TABLET PO SCH (09:03)
--- NOTE | 2016-06-04 09:33 | CONS ---
DATE OF CONSULTATION: 06/02/2016 REQUESTING PHYSICIAN: ____. 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 The patient lives alone, had a few steps to manage and she is with known chronic obstructive pulmonary disease, alcoholic, hepatitic encephalopathy, hypertension, hyperlipidemia, pancreatitis, appendectomy, cholecystectomy and family history of hypertension. She still uses nicotine and alcohol. The patient is not known to be allergic to any medication. The patient was admitted through the Emergency Room on 05/28/2016, after she was found with altered mental status. She was noted by her family, naked without any clothes, confused, which is not her baseline and she was found with alcohol next to her. She was noted with serum ammonia level of 81 at the time of admission. She is apparently doing alright about 2 days prior when her family saw her. She lives alone and uses a quad cane or roller walker to get around. She was found at the time of admission with severe dehydration and encephalopathy. Since admission, the patient was evaluated for the above problem. The patient was noted with acute versus chronic renal failure, probably from dehydration, also with metabolic acidosis. ____ noted her with alcoholic cirrhosis, hyperammonemia, and confusion. The patient apparently states that she had been sober since 01/18/2017. CT scan of the abdomen in 01/2016 revealed nodular liver compatible with cirrhosis, anorexia and also she had history of Billroth II stomach surgery. Last EGD done on 12/2015 showed gastroesophageal reflux disease. ALLERGIES: She has no known allergies to any medication. She complains of pain in her knees, left side more than the right side. She had x-rays of her left hip which failed to reveal any acute abnormalities, maybe minimal degenerative changes. Physical therapy noted her walking with a roller walker without any difficulty and she is not steady without the walker and they are concerned about her living by herself secondary to her confusion. PHYSICAL EXAMINATION: Today revealed an elderly female, she is alert, oriented to place and person, follows commands appropriately, moves all 4 extremities voluntarily where she had 4+/5 grade muscle strength. Deep tendon reflexes are decreased overall and she had equal perception of touch and pinprick sensation bilaterally. She had a crepitus on range of motion of both knee joints with mild knee joint effusion. She had pain free range of motion of her lumbar spine and both hips. She has some edema of her feet and legs. The patient had maybe about 5 degrees short of full extension in both knees. She seemed to have equal perception of touch and pinprick sensation bilaterally. I have not tested her ambulation skills at this time. ASSESSMENT: An elderly female with history of alcoholic cirrhosis of liver, acute renal failure with proteinuria, anemia, thrombocytopenia, metabolic acidosis and degenerative joint disease of both knees with pain. RECOMMENDATION: To obtain x-rays of her knees and to inject her knees with a Depo-Medrol to help ease her pain and to consider knee bracing if the pain persists. . ____, I appreciate asking me to participate in care of this interesting patient. I will be glad to follow her with you as needed for her rehabilitation. CESARIO ABARCA MD DR: DIAZ/gerad JOB#: [id number] / [id number]
[2016-06-04] MEDS: HYDROCODONE/APAP 5/325MG TABLET. PO PRN (10:06)
[2016-06-04] MEDS ORDERED: HALOPERIDOL LACT 5 MG/ML VIAL. IVP PRN (10:15)
[2016-06-04] MEDS: ALPRAZOLAM 0.25 MG TABLET PO PRN ×2 (10:35→21:05)
--- NOTE | 2016-06-04 11:38 | PDOC ---
SUBJECTIVE ROS KVNG Daughter reports that she is really confused today Pt says she is OK OBJECTIVE Vital Signs Vital Signs Date Time Temp Pulse Resp B/P Pulse Ox O2 Delivery O2 Flow Rate FiO2 06/04/16 10:06 20 92 Room Air 06/04/16 03:20 97.7 99 114/66 97.7 06/03/16 20:00 2.0 I & 0 Intake and Output 06/04/16 07:00 Intake Total 1530 ml Output Total 50 ml Balance 1480 ml Intake Oral 530 ml IV Total 1000 ml Output Urine Total 50 ml # Voids 6 # Bowel Movements 1 PHYSICAL EXAM Physical Exam GEN: Awake, Oriented x 1, In no distress; Reportedly confused EYES: Vision Unchanged as best assessible with AMS. Conjunctiva Normal EN: No EN Drainage, Mucous Membranes moist NECK: no JVD, min JVP, Supple, no Thyromegaly CVS: S1S2, + Murmur, No Gallop, No Rub,+ Edema RESP: no Rales, no Rhonchi,no Acc. Muscle Use GI: BS + ve, NO Bruit, Non Tender, ? 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 Given AMS we will proceed with HD later today or in am. Not sure if AMS is due to ^ NH3 or Uremia. Daughter at bedside reports that pt was somewhat confused yest after noon too and NH3 was 29 ARF: (Cannot R/o ESRD pending Myeloma eval and Rx) Dialysis as below F 180 NR 3.0 Hrs 3 K 2.5 Ca 140 Na 35 HC03 Qb 350 + Qd 500+ Heparin 0 Units Uf 1-2 Kgs or to dry weight as tolerated May give 25-50 gms of 25% Albumin if needed to maintain Hemodynamic stability Treatment plan reviewed and discussed with floor hand Met Acidosis - Correct with HD later today; ? 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 See orders for changes. 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 Low Mag - better now COMMENT/RELEVANT DATA Meds Current Medications Medications (Trade) Dose Ordered Sig/Sherri Start Time Stop Time Status Last Admin Dose Admin Acetaminophen (Tylenol) 325 mg PRN Q6HRS PRN 05/28/16 19:00 06/03/16 20:18 325 MG Acetaminophen/ Hydrocodone Bitart (Lortab 5/325) 1 tab PRN Q6HRS PRN 05/28/16 19:00 06/04/16 10:06 1 TAB Albuterol Sulfate (Ventolin Neb Soln) 2.5 mg PRN Q4HRS PRN 05/28/16 19:00 Albuterol/ Ipratropium (Duoneb) 3 ml RTQID 06/03/16 20:00 06/04/16 07:40 3 ML Alprazolam (Xanax) 0.25 mg PRN Q8HRS PRN 06/04/16 10:15 06/04/16 10:35 0.25 MG Bupivacaine HCl (Sensorcaine-Mpf 0.25%) 10 ml 1X ONCE 06/02/16 16:30 06/02/16 16:31 DC 06/02/16 16:46 10 ML Fentanyl Citrate (Fentanyl 5ml Vial) 150 mcg 1X ONCE 06/03/16 10:45 06/03/16 10:46 DC 06/03/16 10:58 125 MCG Haloperidol Lactate (Haldol) 0.5 mg PRN Q6HRS PRN 06/04/16 10:15 Hydralazine HCl (Apresoline) 10 mg PRN Q4HRS PRN 05/28/16 19:00 Lactulose 20 gm DAILY 06/04/16 09:00 06/04/16 09:02 20 GM Lactulose 20 gm 20 gm [id number] 05/31/16 14:00 06/02/16 10:11 DC 05/31/16 14:59 20 GM Lidocaine/Sodium Bicarbonate (Buffered Lidocaine 1%) 20 ml 1X ONCE 06/03/16 10:45 06/03/16 10:46 DC 06/03/16 10:57 7 ML Magnesium Oxide (Magnesium Oxide) 400 mg DAILY 06/03/16 09:00 06/04/16 09:03 400 MG Magnesium Sulfate/ Dextrose (Magnesium Sulfate PREMIX 4GM) 100 ml @ 25 mls/hr 1X ONCE 06/03/16 09:00 06/03/16 12:59 DC 06/03/16 10:10 25 MLS/HR Methylprednisolone Acetate (Depo-Medrol 40mg Vial) 40 mg 1X ONCE 06/02/16 16:30 06/02/16 16:31 DC 06/02/16 16:46 40 MG Methylprednisolone Acetate 40 mg 40 mg 1X ONCE 06/02/16 16:45 06/02/16 16:46 DC 06/02/16 16:45 40 MG Midazolam HCl (Versed) 3 mg 1X ONCE 06/03/16 10:45 06/03/16 10:46 DC 06/03/16 10:58 2.5 MG Ondansetron HCl (Zofran) 4 mg PRN Q8HRS PRN 05/28/16 19:00 05/30/16 03:36 4 MG Ondansetron HCl 4 mg 4 mg PRN Q8HRS PRN 05/28/16 17:15 05/29/16 09:22 DC Pantoprazole Sodium (Protonix) 40 mg DAILYAC 05/29/16 10:00 06/04/16 09:02 40 MG Potassium Chloride 40 meq 40 meq 1X PRN PRN 06/02/16 18:15 06/03/16 05:00 DC Potassium Chloride (Klor-Con) 40 meq 1X ONCE 06/02/16 09:00 06/02/16 09:01 DC 06/02/16 08:39 40 MEQ Rifaximin (Xifaxan) 550 mg Q12HR 05/30/16 15:00 06/04/16 09:03 550 MG Sodium Bicarbonate 75 meq/Sodium Chloride 1,075 ml @ 100 mls/hr [id number] 06/03/16 06:00 06/04/16 03:30 100 MLS/HR Sodium Bicarbonate/ Potassium Chloride/Sodium Chloride (Iv Sodium Chloride 0.45%) 1,095 ml @ 100 mls/hr [id number] 06/02/16 18:30 06/03/16 05:26 DC 06/02/16 21:05 100 MLS/HR Sodium Bicarbonate/ Sodium Chloride (Iv Sodium Chloride 0.45%) 1,075 ml @ 100 mls/hr [id number] 06/01/16 15:45 06/02/16 18:18 DC 06/02/16 11:51 100 MLS/HR Sodium Chloride (Iv Sodium Chloride 0.9% 1000ml Bag) 1,000 ml @ 100 mls/hr Q10H 05/28/16 19:00 06/01/16 15:33 DC 06/01/16 01:26 75 MLS/HR Lab Laboratory Tests Test 06/03/16 12:30 06/04/16 03:27 Ammonia 29mcmol/L (11-34) 186mcmol/L (11-34) White Blood Count 12.9x10^3/uL (4.0-11.0) Red Blood Count 2.19x10^6/uL (3.50-5.40) Hemoglobin 7.7g/dL (12.0-15.5) Hematocrit 21.8% (36.0-47.0) Mean Corpuscular Volume 100fL (79-100) Mean Corpuscular Hemoglobin 35pg (25-35) Mean Corpuscular Hemoglobin Concent 35g/dL (31-37) Red Cell Distribution Width 19.8% (11.5-14.5) Platelet Count 123x10^3/uL (140-400) Neutrophils (%) (Auto) 77% (31-73) Lymphocytes (%) (Auto) 12% (24-48) Monocytes (%) (Auto) 11% (0-9) Eosinophils (%) (Auto) 0% (0-3) Basophils (%) (Auto) 0% (0-3) Neutrophils # (Auto) 10.0x10^3uL (1.8-7.7) Lymphocytes # (Auto) 1.5x10^3/uL (1.0-4.8) Monocytes # (Auto) 1.4x10^3/uL (0.0-1.1) Eosinophils # (Auto) 0.0x10^3/uL (0.0-0.7) Basophils # (Auto) 0.0x10^3/uL (0.0-0.2) Sodium Level 136mmol/L (136-145) Potassium Level 4.7mmol/L (3.5-5.1) Chloride Level 103mmol/L (98-107) Carbon Dioxide Level 20mmol/L (21-32) Anion Gap 13 (6-14) Blood Urea Nitrogen 33mg/dL (7-20) Creatinine 3.8mg/dL (0.6-1.0) Estimated GFR (Cockcroft-Gault) 11.7 Glucose Level 145mg/dL (70-99) Calcium Level 8.8mg/dL (8.5-10.1) Phosphorus Level 4.2mg/dL (2.6-4.7) Magnesium Level 2.6mg/dL (1.8-2.4) Albumin 2.2g/dL (3.4-5.0) WIL GRANDE MD Jun 04, 2016 11:38
--- NOTE | 2016-06-04 11:52 | PDOC ---
Subjective: Subjective: Not much from pt. Objective: Objective: Per RN - didn't eat much breakfast, getting dialysis cath today, refused lactulose yesterday. Vital Signs: Vital Signs Date Time Temp Pulse Resp B/P Pulse Ox O2 Delivery O2 Flow Rate FiO2 06/04/16 11:06 20 92 Room Air 06/04/16 03:20 97.7 99 114/66 97.7 06/03/16 20:00 2.0 Labs: Laboratory Tests Test 06/03/16 12:30 06/04/16 03:27 Ammonia 29mcmol/L 186mcmol/L White Blood Count 12.9x10^3/uL Red Blood Count 2.19x10^6/uL Hemoglobin 7.7g/dL Hematocrit 21.8% Mean Corpuscular Volume 100fL Mean Corpuscular Hemoglobin 35pg Mean Corpuscular Hemoglobin Concent 35g/dL Red Cell Distribution Width 19.8% Platelet Count 123x10^3/uL Neutrophils (%) (Auto) 77% Lymphocytes (%) (Auto) 12% Monocytes (%) (Auto) 11% Eosinophils (%) (Auto) 0% Basophils (%) (Auto) 0% Neutrophils # (Auto) 10.0x10^3uL Lymphocytes # (Auto) 1.5x10^3/uL Monocytes # (Auto) 1.4x10^3/uL Eosinophils # (Auto) 0.0x10^3/uL Basophils # (Auto) 0.0x10^3/uL Sodium Level 136mmol/L Potassium Level 4.7mmol/L Chloride Level 103mmol/L Carbon Dioxide Level 20mmol/L Anion Gap 13 Blood Urea Nitrogen 33mg/dL Creatinine 3.8mg/dL Estimated GFR (Cockcroft-Gault) 11.7 Glucose Level 145mg/dL Calcium Level 8.8mg/dL Phosphorus Level 4.2mg/dL Magnesium Level 2.6mg/dL Albumin 2.2g/dL PE: GEN: NAD, sitting on edge of bed LUNGS: CTAB HEART: RRR ABD: S/ND/NT NEURO/PSYCH: confused A/P: Alcoholic cirrhosis, hyperammonemia, encephalopathy -CT in 01/2016 showed nodular liver (cirrhosis), Doppler 05/2016 unrevealing, AFP WNL -on Xifaxin BID, lactulose dosing has varied - has tried BID, QD, PRN - refused again yesterday but took this a.m. -ammonia from 29 to 186 Anemia/thrombocytopenia -heme/onc following, bone marrow bx 06/03 KVNG -renal following, dialysis catheter to be placed today -- Ammonia and confusion worse today. Discussed lactulose w/ pt, RN, daughter, Nathalie - will adjust orders. IVY BETH Jun 04, 2016 11:52
--- NOTE | 2016-06-04 11:53 | PDOC ---
PROGRESS NOTES Chief Complaint Chief Complaint Altered mental status, hyperammonemia 1. Encephalopathy, possible metabolic, hepatic. 2. Acute kidney injury, ATN,myeloma? 3. Metabolic acidosis. 4. Thrombocytopenia 2/2 cirrhosis likely 5. Anemia, chronic. 6. Hyperbilirubinemia. 7. Alcoholism. 8. high INR 2/2 CIrrhosis likely 9, LEFT thigh pain, 2/2 OA? 10. hypomagnesemia plan 1. fu with renal, onco 2. fu with labs ordered for onco 3. ivf with bicarb 4. monitor Cr PTOT SW, will do HH as per PT, but SNF is better cont rifaxin, cont lactulose to keep BM 2-3 times a day. UNFOrtunately, pt always refuse sometimes. check left hip xr, dr. James consulted, got left knee steroid injection, better now BM bx 06/03 as per onco replete Mag 4g HD start 06/04 as per renal haldol, xanax prn History of Present Illness History of Present Illness t refused lactulose yesterday, ammonia level high again today. altho i explained to her many times has to keep BM 2-3 times perday, only one time BM yesterday and today Cr still high left hip pain for a couple of weeks, ok to ambulate 6 BM yesterday, today ammonia is high again more confusion 06/04 Vitals Vitals Vital Signs Date Time Temp Pulse Resp B/P Pulse Ox O2 Delivery O2 Flow Rate FiO2 06/04/16 11:06 20 92 Room Air 06/04/16 03:20 97.7 99 114/66 97.7 06/03/16 20:00 2.0 Physical Exam Physical Exam aaox1 to person only General: Alert, Cooperative, No acute distress Heart: Regular rate Lungs: Clear Abdomen: Soft, No tenderness, Other (no ascites) Extremities: No edema Skin: Other (no bruising) Labs LABS Laboratory Tests Test 06/03/16 12:30 06/04/16 03:27 Ammonia 29mcmol/L (11-34) 186mcmol/L (11-34) White Blood Count 12.9x10^3/uL (4.0-11.0) Red Blood Count 2.19x10^6/uL (3.50-5.40) Hemoglobin 7.7g/dL (12.0-15.5) Hematocrit 21.8% (36.0-47.0) Mean Corpuscular Volume 100fL (79-100) Mean Corpuscular Hemoglobin 35pg (25-35) Mean Corpuscular Hemoglobin Concent 35g/dL (31-37) Red Cell Distribution Width 19.8% (11.5-14.5) Platelet Count 123x10^3/uL (140-400) Neutrophils (%) (Auto) 77% (31-73) Lymphocytes (%) (Auto) 12% (24-48) Monocytes (%) (Auto) 11% (0-9) Eosinophils (%) (Auto) 0% (0-3) Basophils (%) (Auto) 0% (0-3) Neutrophils # (Auto) 10.0x10^3uL (1.8-7.7) Lymphocytes # (Auto) 1.5x10^3/uL (1.0-4.8) Monocytes # (Auto) 1.4x10^3/uL (0.0-1.1) Eosinophils # (Auto) 0.0x10^3/uL (0.0-0.7) Basophils # (Auto) 0.0x10^3/uL (0.0-0.2) Sodium Level 136mmol/L (136-145) Potassium Level 4.7mmol/L (3.5-5.1) Chloride Level 103mmol/L (98-107) Carbon Dioxide Level 20mmol/L (21-32) Anion Gap 13 (6-14) Blood Urea Nitrogen 33mg/dL (7-20) Creatinine 3.8mg/dL (0.6-1.0) Estimated GFR (Cockcroft-Gault) 11.7 Glucose Level 145mg/dL (70-99) Calcium Level 8.8mg/dL (8.5-10.1) Phosphorus Level 4.2mg/dL (2.6-4.7) Magnesium Level 2.6mg/dL (1.8-2.4) Albumin 2.2g/dL (3.4-5.0) Review of Systems Review of Systems no fever, chills, sob or chest pain Assessment and Plan Assessmemt and Plan Problems Medical Problems: (1) Altered mental status Status: Acute (2) Hyperammonemia Status: Acute Problems: Comment Review of Relevant I have reviewed the following items amy (where applicable) has been applied. Labs Laboratory Tests Test 06/02/16 18:35 06/03/16 02:55 06/03/16 12:30 06/04/16 03:27 Potassium Level 4.0mmol/L (3.5-5.1) 5.0mmol/L (3.5-5.1) 4.7mmol/L (3.5-5.1) White Blood Count 5.2x10^3/uL (4.0-11.0) 12.9x10^3/uL (4.0-11.0) Red Blood Count 2.40x10^6/uL (3.50-5.40) 2.19x10^6/uL (3.50-5.40) Hemoglobin 8.4g/dL (12.0-15.5) 7.7g/dL (12.0-15.5) Hematocrit 23.6% (36.0-47.0) 21.8% (36.0-47.0) Mean Corpuscular Volume 98fL (79-100) 100fL (79-100) Mean Corpuscular Hemoglobin 35pg (25-35) 35pg (25-35) Mean Corpuscular Hemoglobin Concent 36g/dL (31-37) 35g/dL (31-37) Red Cell Distribution Width 19.0% (11.5-14.5) 19.8% (11.5-14.5) Platelet Count 91x10^3/uL (140-400) 123x10^3/uL (140-400) Neutrophils (%) (Auto) 86% (31-73) 77% (31-73) Lymphocytes (%) (Auto) 12% (24-48) 12% (24-48) Monocytes (%) (Auto) 2% (0-9) 11% (0-9) Eosinophils (%) (Auto) 0% (0-3) 0% (0-3) Basophils (%) (Auto) 0% (0-3) 0% (0-3) Neutrophils # (Auto) 4.5x10^3uL (1.8-7.7) 10.0x10^3uL (1.8-7.7) Lymphocytes # (Auto) 0.6x10^3/uL (1.0-4.8) 1.5x10^3/uL (1.0-4.8) Monocytes # (Auto) 0.1x10^3/uL (0.0-1.1) 1.4x10^3/uL (0.0-1.1) Eosinophils # (Auto) 0.0x10^3/uL (0.0-0.7) 0.0x10^3/uL (0.0-0.7) Basophils # (Auto) 0.0x10^3/uL (0.0-0.2) 0.0x10^3/uL (0.0-0.2) Sodium Level 139mmol/L (136-145) 136mmol/L (136-145) Chloride Level 107mmol/L (98-107) 103mmol/L (98-107) Carbon Dioxide Level 20mmol/L (21-32) 20mmol/L (21-32) Anion Gap 12 (6-14) 13 (6-14) Blood Urea Nitrogen 27mg/dL (7-20) 33mg/dL (7-20) Creatinine 3.6mg/dL (0.6-1.0) 3.8mg/dL (0.6-1.0) Estimated GFR (Cockcroft-Gault) 12.4 11.7 Glucose Level 153mg/dL (70-99) 145mg/dL (70-99) Calcium Level 8.5mg/dL (8.5-10.1) 8.8mg/dL (8.5-10.1) Phosphorus Level 4.0mg/dL (2.6-4.7) 4.2mg/dL (2.6-4.7) Magnesium Level 1.1mg/dL (1.8-2.4) 2.6mg/dL (1.8-2.4) Albumin 2.0g/dL (3.4-5.0) 2.2g/dL (3.4-5.0) Ammonia 29mcmol/L (11-34) 186mcmol/L (11-34) Laboratory Tests Test 06/03/16 12:30 06/04/16 03:27 Ammonia 29mcmol/L (11-34) 186mcmol/L (11-34) White Blood Count 12.9x10^3/uL (4.0-11.0) Red Blood Count 2.19x10^6/uL (3.50-5.40) Hemoglobin 7.7g/dL (12.0-15.5) Hematocrit 21.8% (36.0-47.0) Mean Corpuscular Volume 100fL (79-100) Mean Corpuscular Hemoglobin 35pg (25-35) Mean Corpuscular Hemoglobin Concent 35g/dL (31-37) Red Cell Distribution Width 19.8% (11.5-14.5) Platelet Count 123x10^3/uL (140-400) Neutrophils (%) (Auto) 77% (31-73) Lymphocytes (%) (Auto) 12% (24-48) Monocytes (%) (Auto) 11% (0-9) Eosinophils (%) (Auto) 0% (0-3) Basophils (%) (Auto) 0% (0-3) Neutrophils # (Auto) 10.0x10^3uL (1.8-7.7) Lymphocytes # (Auto) 1.5x10^3/uL (1.0-4.8) Monocytes # (Auto) 1.4x10^3/uL (0.0-1.1) Eosinophils # (Auto) 0.0x10^3/uL (0.0-0.7) Basophils # (Auto) 0.0x10^3/uL (0.0-0.2) Sodium Level 136mmol/L (136-145) Potassium Level 4.7mmol/L (3.5-5.1) Chloride Level 103mmol/L (98-107) Carbon Dioxide Level 20mmol/L (21-32) Anion Gap 13 (6-14) Blood Urea Nitrogen 33mg/dL (7-20) Creatinine 3.8mg/dL (0.6-1.0) Estimated GFR (Cockcroft-Gault) 11.7 Glucose Level 145mg/dL (70-99) Calcium Level 8.8mg/dL (8.5-10.1) Phosphorus Level 4.2mg/dL (2.6-4.7) Magnesium Level 2.6mg/dL (1.8-2.4) Albumin 2.2g/dL (3.4-5.0) Microbiology 05/28/16 Blood Culture - Final, Complete NO GROWTH AFTER 5 DAYS Medications Current Medications Sodium Chloride (Iv Sodium Chloride 0.9% 1000ml Bag) 1,000 ml @ 1,000 mls/hr 1X ONCE IV Last administered on 05/28/16 16:07; Start 05/28/16 at 15:45; Stop 05/28/16 at 16:44; Status DC Ondansetron HCl 4 mg 4 mg PRN Q8HRS PRN IV NAUSEA/VOMITING; Start 05/28/16 at 17 :15; Stop 05/29/16 at 09:22; Status DC Sodium Chloride (Iv Sodium Chloride 0.9% 1000ml Bag) 1,000 ml @ 125 mls/hr Q8H IV ; Start 05/28/16 at 17:07; Stop 05/28/16 at 18:38; Status DC Lactulose 20 gm 20 gm PRN BID PRN PO CONSTIPATION; Start 05/28/16 at 18:45; Stop 05/29/16 at 10:00; Status DC Sodium Chloride (Iv Sodium Chloride 0.9% 1000ml Bag) 1,000 ml @ 100 mls/hr Q10H IV Last administered on 06/01/16 01:26; Start 05/28/16 at 19:00; Stop at 15:33; Status DC Acetaminophen (Tylenol) 325 mg PRN Q6HRS PRN PO MILD PAIN / TEMP Last administered on 06/03/16 20:18; Start 05/28/16 at 19:00 Acetaminophen/ Hydrocodone Bitart (Lortab 5/325) 1 tab PRN Q6HRS PRN PO MODERATE TO SEVERE PAIN Last administered on 06/04/16 10:06; Start 05/28/16 at 19 :00 Hydralazine HCl (Apresoline) 10 mg PRN Q4HRS PRN IVP ELEVATED BP, SEE COMMENTS ; Start 05/28/16 at 19:00 Ondansetron HCl (Zofran) 4 mg PRN Q8HRS PRN IV NAUSEA/VOMITING Last administered on 05/30/16 03:36; Start 05/28/16 at 19:00 Albuterol Sulfate (Ventolin Neb Soln) 2.5 mg PRN Q4HRS PRN NEB SHORTNESS OF BREATH; Start 05/28/16 at 19:00 Lactulose 20 gm BID PO Last administered on 05/30/16 08:29; Start 05/29/16 at 10 :00; Stop 05/30/16 at 14:43; Status DC Pantoprazole Sodium (Protonix) 40 mg DAILYAC PO Last administered on 06/04/16 09:02; Start 05/29/16 at 10:00 Lactulose 20 gm TID PO ; Start 05/31/16 at 09:00; Stop 05/31/16 at 09:00; Status DC Lactulose 20 gm TID PO Last administered on 05/31/16 08:33; Start 05/30/16 at 14 :45; Stop 05/31/16 at 09:45; Status DC Rifaximin (Xifaxan) 550 mg Q12HR PO Last administered on 06/04/16 09:03; Start 05/30/16 at 15:00 Lactulose 20 gm 20 gm [id number] PO Last administered on 05/31/16 14:59; Start at 14:00; Stop 06/02/16 at 10:11; Status DC Magnesium Sulfate/ Dextrose 50 ml @ 25 mls/hr PRN DAILY PRN IV for Mag < 1.7 on am labs; Start 06/01/16 at 15:30 Sodium Bicarbonate/ Sodium Chloride (Iv Sodium Chloride 0.45%) 1,075 ml @ 100 mls/hr [id number] IV Last administered on 06/02/16 11:51; Start 06/01/16 at 15:45; Stop 06/02/16 at 18:18; Status DC Potassium Chloride (Klor-Con) 40 meq 1X ONCE PO Last administered on 06/02/16 08:39; Start 06/02/16 at 09:00; Stop 06/02/16 at 09:01; Status DC Lactulose 20 gm PRN BID PRN PO CONSTIPATION; Start 06/03/16 at 09:00; Stop at 12:00; Status DC Lactulose 20 gm BID PO Last administered on 06/02/16 11:49; Start 06/02/16 at 12 :00; Stop 06/03/16 at 10:38; Status DC Methylprednisolone Acetate (Depo-Medrol 40mg Vial) 40 mg 1X ONCE IM Last administered on 06/02/16 16:46; Start 06/02/16 at 16:30; Stop 06/02/16 at 16:31; Status DC Bupivacaine HCl (Sensorcaine-Mpf 0.25%) 10 ml 1X ONCE IJ Last administered on 06/02/16 16:46; Start 06/02/16 at 16:30; Stop 06/02/16 at 16:31; Status DC Methylprednisolone Acetate 40 mg 40 mg 1X ONCE IM Last administered on 16:45; Start 06/02/16 at 16:45; Stop 06/02/16 at 16:46; Status DC Sodium Bicarbonate/ Potassium Chloride/Sodium Chloride (Iv Sodium Chloride 0.45% ) 1,095 ml @ 100 mls/hr [id number] IV Last administered on 06/02/16 21:05; Start 06/02/16 at 18:30; Stop 06/03/16 at 05:26; Status DC Potassium Chloride 40 meq 40 meq 1X PRN PRN PO if repeat K < 3.7; Start at 18:15; Stop 06/03/16 at 05:00; Status DC Sodium Bicarbonate 75 meq/Sodium Chloride 1,075 ml @ 100 mls/hr [id number] IV Last administered on 06/04/16 03:30; Start 06/03/16 at 06:00; Stop 06/04/16 at 11: 39; Status DC Magnesium Sulfate/ Dextrose (Magnesium Sulfate PREMIX 4GM) 100 ml @ 25 mls/hr 1X ONCE IV Last administered on 06/03/16 10:10; Start 06/03/16 at 09:00; Stop 06/03/16 at 12:59; Status DC Magnesium Oxide (Magnesium Oxide) 400 mg DAILY PO Last administered on 09:03; Start 06/03/16 at 09:00 Lidocaine/Sodium Bicarbonate (Buffered Lidocaine 1%) 20 ml STK-MED ONCE IJ ; Start 06/03/16 at 10:23; Stop 06/03/16 at 10:24; Status DC Midazolam HCl (Versed) 5 mg STK-MED ONCE .ROUTE ; Start 06/03/16 at 10:24; Stop 06/03/16 at 10:25; Status DC Fentanyl Citrate (Fentanyl 5ml Vial) 250 mcg STK-MED ONCE .ROUTE ; Start at 10:24; Stop 06/03/16 at 10:25; Status DC Lidocaine/Sodium Bicarbonate (Buffered Lidocaine 1%) 20 ml 1X ONCE IJ Last administered on 06/03/16 10:57; Start 06/03/16 at 10:45; Stop 06/03/16 at 10:46; Status DC Midazolam HCl (Versed) 3 mg 1X ONCE IV Last administered on 06/03/16 10:58; Start 06/03/16 at 10:45; Stop 06/03/16 at 10:46; Status DC Fentanyl Citrate (Fentanyl 5ml Vial) 150 mcg 1X ONCE IV Last administered on 10:58; Start 06/03/16 at 10:45; Stop 06/03/16 at 10:46; Status DC Lactulose 20 gm DAILY PO Last administered on 06/04/16 09:02; Start 06/04/16 at 09:00 Albuterol/ Ipratropium (Duoneb) 3 ml RTQID NEB Last administered on 06/04/16 07 :40; Start 06/03/16 at 20:00 Alprazolam (Xanax) 0.25 mg PRN Q8HRS PRN PO ANXIETY / AGITATION Last administered on 06/04/16 10:35; Start 06/04/16 at 10:15 Haloperidol Lactate (Haldol) 0.5 mg PRN Q6HRS PRN IVP AGITATION, 2ND CHOICE; Start 06/04/16 at 10:15 Active Scripts Active Pantoprazole Sodium 40 Mg Tablet.dr 40 Mg PO DAILYAC 30 Days Reported Neomycin Sulfate 500 Mg Tablet 1 Tab PO BID Spironolactone 50 Mg Tablet 1 Tab PO DAILY Mag-Oxide (Magnesium Oxide) 400 Mg Tablet 2 Tab PO BID Vitamin D3 (Cholecalciferol (Vitamin D3)) 400 Unit Tablet 400 Unit PO BID Fish Oil Conc 1,000 mg Softgel ([place]-3/Dha/Epa/Fish Oil) 1,000 Mg Capsule 3, 000 Mg PO DAILY Multiple Vitamin (Multivitamin With Minerals) 1 Each Tablet 1 Each PO Corzide 40-5 Tablet (Nadolol/Bendroflumethiazide) 1 Each Tablet 0.5 Tab PO DAILY Coenzyme Q10 (Ubidecarenone) 100 Mg Capsule 100 Mg PO DAILY Calcium (Calcium Carbonate) 600 Mg Tablet 600 Mg PO BID Vitals/I & O Vital Sign - Last 24 Hours 06/03/16 06/03/16 06/03/16 06/03/16 11:55 12:25 12:55 13:55 Pulse 92 95 91 88 B/P 132/80 133/73 131/73 126/80 06/03/16 06/03/16 06/03/16 06/03/16 14:55 15:53 16:53 19:00 Temp 96.7 96.9 96.7 96.9 Pulse 89 66 Resp 18 18 20 B/P 141/84 140/79 Pulse Ox 96 96 95 O2 Delivery Room Air Room Air Room Air O2 Flow Rate 2.0 2.0 06/03/16 06/03/16 06/03/16 06/04/16 20:00 20:43 23:00 03:20 Temp 95.7 97.7 95.7 97.7 Pulse 101 99 Resp 20 20 B/P 149/85 114/66 Pulse Ox 97 93 92 O2 Delivery Room Air Room Air Room Air Room Air O2 Flow Rate 2.0 06/04/16 06/04/16 06/04/16 07:41 10:06 11:06 Resp 20 20 Pulse Ox 95 92 92 O2 Delivery Room Air Room Air Room Air Intake and Output 06/03/16 06/03/16 06/04/16 15:00 23:00 07:00 Intake Total 180 ml 350 ml 1000 ml Output Total 50 ml Balance 130 ml 350 ml 1000 ml ALOK JACKMAN MD Jun 04, 2016 11:53
[2016-06-04] MEDS ORDERED: CEFAZOLIN 1GM IVPB FOR OMNI 50 ML IV ONE ×2 (12:35→13:15)
[2016-06-04] MEDS ORDERED: FENTANYL PF 100 MCG/2 ML VIAL. ONE (12:35)
[2016-06-04] MEDS ORDERED: MIDAZOLAM HCL 2 MG/2 ML VIAL. ONE (12:35)
[2016-06-04] MEDS ORDERED: LIDOCAINE 1%/EPI 1:100,000 20 ML VIAL. ONE (12:37)
[2016-06-04] MEDS ORDERED: HEPARIN for IV BOLUS 10,000 UNIT/10 ML VIAL. ONE (12:37)
[2016-06-04] MEDS ORDERED: FENTANYL PF 100 MCG/2 ML VIAL. IV ONE (13:15)
[2016-06-04] MEDS ORDERED: LIDOCAINE 1%/EPI 1:100,000 20 ML VIAL. IJ ONE (13:15)
[2016-06-04] MEDS ORDERED: MIDAZOLAM HCL 2 MG/2 ML VIAL. IV ONE (13:15)
--- NOTE | 2016-06-04 13:21 | PDOC ---
MODERATE SEDATION ASSESSMENT RISKS/ALTERNATIVES Risks/Alternatives Risks and alternatives of this type of sedation and procedure discussed with: RISK/ALTERNATIVES: Patient H & P ON CHART H & P H & P on chart and reviewed for co-morbid conditions and appropriate labs. H&P ON CHART: Yes STATUS PREG STATUS ASSESSED: N/A MEDS/ALLERGIES REVIEWED Meds/Allergies Reviewed Medications and Allergies including time and route of recently administered narcotics and sedatives. MEDS/ALLERGIES REVIEWED: Yes ASA RATING ASA RATING: III AIRWAY ASSESSMENT Airway Assessment Airway patency, oral function limitations, presence of caps, crowns, dentures, partials, and ability to extend neck assessed. AIRWAY ASSESSMENT: Yes MALLAMPATI SCORE MALLAMPATI SCORE: II PRE-SEDATION ASSESSMENT PRE-SEDATION ASSESSMENT: Yes SHILA FLORES MD Jun 04, 2016 13:21
--- NOTE | 2016-06-04 13:26 | PDOC ---
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 No apparent complication. Disposition Disposition From IR to 506 for recovery. F/u with Renal. OK to use tunneled HDC. Full report to follow. SHILA FLORES MD Jun 04, 2016 13:26
[2016-06-04] MEDS ORDERED: IV NORMAL SALINE 1000ML BAG 1,000 ML IV PRN (18:12)
[2016-06-04] MEDS ORDERED: DIALYSIS PATIENT. MC PRN ×2 (18:15)
[2016-06-04] MEDS ORDERED: 0.9 % SODIUM CHLORIDE 10 ML DISP.SYRIN. IV PRN ×2 (18:15)
[2016-06-04 19:14] LABS: GAMMA UR 32.2 % (.); M-SPIKE, % Not Observed % (Not Observed); PROTEIN 24 UR 125.3 mg/24 hr (30.0-150.0); PROTEIN UR 17.9 mg/dL (Not Estab.)
[2016-06-04] MEDS: LACTULOSE 20 GM/30 ML SOLUTION. PO SCH (21:05)
[2016-06-05] VITALS (7 sets, daily range): BP systolic 122–140; BP diastolic 71–82
[2016-06-05] MEDS ORDERED: IPRATRPIUM/ALBUTEROL 0.5/2.5MG 3 ML NEBU. NEB ONE (00:15)
[2016-06-05 05:31] LABS: CALCIUM 8.6 mg/dL (8.5-10.1); CREATININE 2.1 mg/dL (0.6-1.0); GFR 23.2; POTASSIUM 3.6 mmol/L (3.5-5.1)
[2016-06-05 05:44] LABS: ALBUMIN 2.1 g/dL (3.4-5.0); PHOSPHORUS 3.1 mg/dL (2.6-4.7)
[2016-06-05 06:34] LABS: BASO % 0 % (0-3); EOS % 1 % (0-3); LYMPH # 1.5 x10^3/uL (1.0-4.8); LYMPH % 19 % (24-48); MEAN CORPUSCULAR HEMOGLOBIN 36 pg (25-35); MEAN CORPUSCULAR HGB CONC 35 g/dL (31-37); MEAN CORPUSCULAR VOLUME 103 fL (79-100); MONO % 13 % (0-9); NEUT % 67 % (31-73); PLATELET COUNT 88 x10^3/uL (140-400); RED BLOOD COUNT 1.88 x10^6/uL (3.50-5.40); RED CELL DISTRIBUTION WIDTH 19.6 % (11.5-14.5)
[2016-06-05 06:38] LABS: HEMOGLOBIN 6.8 g/dL (12.0-15.5)
[2016-06-05 06:39] LABS: HEMATOCRIT 19.3 % (36.0-47.0)
[2016-06-05] MEDS: IPRATRPIUM/ALBUTEROL 0.5/2.5MG 3 ML NEBU. NEB SCH ×4 (07:47→19:28)
--- NOTE | 2016-06-05 07:55 | RAD ---
Ultrasound and fluoro guided placement of right IJ tunneled hemodialysis catheter Indication: 71-year-old female with acute kidney injury and metabolic acidosis. Tunneled dialysis catheter insertion has been requested by renal. Fluoro time: 1.1 minutes Kerma-Area Product: 2 Gycm2 Moderate sedation: 22 minutes moderate sedation was provided utilizing a total of 2 mg Versed and 100 mcg fentanyl, IV. The patient was appropriately monitored by a qualified independent observer throughout the time of moderate sedation. Antibiotic: A single dose of Ancef was administered within 1 hour of the procedure start time. Sterility: All elements of maximal sterile barrier technique, including the use of a cap, mask, sterile gown, sterile gloves, large sterile sheet, appropriate hand hygiene, and 2% chlorhexidine for cutaneous antisepsis (or acceptable alternative antiseptic per current guidelines) were utilized. Procedure: Informed consent was obtained from the patient's power of attorney at law. She was placed supine on the angiography table. Preliminary ultrasound examination of right neck revealed wide patency of right internal jugular vein, which was documented with a hard copy ultrasound image. Right neck and upper chest were then prepped and draped in the usual sterile fashion, utilizing all elements of maximal sterile barrier technique, as described above. Moderate sedation was provided with IV Versed and Fentanyl. 1 gram Ancef was given IV, prophylactically. Using aseptic technique and local anesthesia, a small skin incision was made lateral to right internal jugular vein, just above clavicle. Using aseptic technique, local anesthesia, and direct ultrasound guidance, a micropuncture needle was successfully introduced into right internal jugular vein. The micropuncture needle was then exchanged over a microguidewire for a micropuncture sheath, through which an Amplatz wire was advanced into IVC, under fluoroscopic control. A second small skin incision was then made along upper anterior aspect of right chest. A subcutaneous tunnel was then fashioned between the right chest and supraclavicular incisions. A 15.5 F 24 cm Dura Max dialysis catheter was pulled through the subcutaneous tunnel from inferior to superior, utilizing the tunneling device provided. The right IJ venostomy tract was then sequentially dilated and the 15.5 Dominican dialysis catheter was easily advanced centrally through a 16 Dominican peel-away sheath, and was positioned with its tip at the level of upper right atrium utilizing fluoroscopic guidance. This catheter was demonstrated to flush and aspirate normally, was packed, and was secured at the right chest exit site utilizing 2-0 Prolene and sterile dressing. The small supraclavicular incision was closed with 4-0 Vicryl, Steri-Strips, and sterile dressing. Patient tolerated the procedure well without apparent complication. Satisfactory position of the dialysis catheter was confirmed with a single fluoroscopic spot image. Impression: Successful, uneventful ultrasound and fluoro guided placement of right IJ 15.5 F 24 cm Dura Max tunneled hemodialysis catheter, as described.
--- NOTE | 2016-06-05 08:59 | PDOC ---
Subjective: Subjective: Onc f/u- Anemia, thrombocytopenia Pt started HD yesterday with increased confusion, ammonia level rising. No new changes today, no complaints. Objective: Vital Signs: Vital Signs Date Time Temp Pulse Resp B/P Pulse Ox O2 Delivery O2 Flow Rate FiO2 06/05/16 07:48 94 Room Air 06/04/16 23:00 97.3 83 18 148/75 97.3 06/04/16 20:00 2.0 Physical Exam: Heart: Regular rate General: Alert, Other Lungs: Other (no resp distress) Psych/Mental Status: Other (mild confusion, memory difficulty this AM) Labs/Imaging: Bmbx pending Skeletal survey neg Assessment/Plan A/P: 71 yo F with: 1. Anemia- stable 2. Thrombocytopenia, plt ~ 90- stable 3. Acute vs chronic kidney disease- renal following 4. Ho alcohol abuse up to admission per daughter; pt denies. 5. Elevated ammonia, refuses meds at times, confusion- GI following Myeloma w/u with conflicting results. Serum immunofixation revealed an IgG lambda monoclonal protein but SPEP had 2 spikes, not monoclonal. Furthermore confusing is that IgG levels not elevated while IgM and IgA are elevated. Both kappa and lambda chains are elevated causing a very near normal ratio, which generally indicates an origin outside of the bone marrow, not Myeloma. Skeletal survey negative Plan: - Await path from Bone marrow biopsy 06/03 - Likely remaining admitted with potential need for HD; I will return Wednesday if path results return, otherwise can f/u as outpt on path results. Dr. Rivera is covering this weekend if any acute issues arise. D/W Dr. Zelaya. NAVEED SEPULVEDA DO Jun 05, 2016 08:59
[2016-06-05] MEDS: PANTOPRAZOLE 40 MG TABLET. PO SCH (09:09)
[2016-06-05] MEDS: RIFAXIMIN 550 MG TABLET PO SCH ×2 (09:10→20:39)
[2016-06-05] MEDS: LACTULOSE 20 GM/30 ML SOLUTION. PO SCH ×2 (09:10→20:40)
[2016-06-05] MEDS: MAGNESIUM OXIDE 400 MG TABLET PO SCH (09:10)
--- NOTE | 2016-06-05 09:24 | PDOC ---
Subjective: Subjective: Feeling okay, no specific complaints. Says took lactulose and had 2-3 stools. Doesn't like lactulose. Objective: Objective: 3 stools charted. Vital Signs: Vital Signs Date Time Temp Pulse Resp B/P Pulse Ox O2 Delivery O2 Flow Rate FiO2 06/05/16 07:48 94 Room Air 06/05/16 07:00 96.9 100 18 131/81 96.9 06/04/16 20:00 2.0 Labs: Laboratory Tests Test 06/05/16 04:05 White Blood Count 8.0x10^3/uL Red Blood Count 1.88x10^6/uL Hemoglobin 6.8g/dL Hematocrit 19.3% Mean Corpuscular Volume 103fL Mean Corpuscular Hemoglobin 36pg Mean Corpuscular Hemoglobin Concent 35g/dL Red Cell Distribution Width 19.6% Platelet Count 88x10^3/uL Neutrophils (%) (Auto) 67% Lymphocytes (%) (Auto) 19% Monocytes (%) (Auto) 13% Eosinophils (%) (Auto) 1% Basophils (%) (Auto) 0% Neutrophils # (Auto) 5.4x10^3uL Lymphocytes # (Auto) 1.5x10^3/uL Monocytes # (Auto) 1.1x10^3/uL Eosinophils # (Auto) 0.1x10^3/uL Basophils # (Auto) 0.0x10^3/uL Sodium Level 140mmol/L Potassium Level 3.6mmol/L Chloride Level 103mmol/L Carbon Dioxide Level 27mmol/L Anion Gap 10 Blood Urea Nitrogen 20mg/dL Creatinine 2.1mg/dL Estimated GFR (Cockcroft-Gault) 23.2 Glucose Level 105mg/dL Calcium Level 8.6mg/dL Phosphorus Level 3.1mg/dL Magnesium Level 2.0mg/dL Albumin 2.1g/dL PE: GEN: NAD, sitting up in bed w/ breakfast tray LUNGS: CTAB HEART: RRR ABD: S/ND/NT NEURO/PSYCH: probably confused, talks some - better than yesterday A/P: Alcoholic cirrhosis, hyperammonemia, encephalopathy -CT in 01/2016 showed nodular liver (cirrhosis), Doppler 05/2016 unrevealing, AFP WNL -on Xifaxin BID, lactulose dosing has varied - has tried BID, QD, PRN - sometimes pt refuses -ammonia from 29 to 186 yesterday - repeat pending this morning Anemia/thrombocytopenia -heme/onc following, bone marrow bx 06/03 w/ pending results -Hgb from 7.7 to 6.8, transfusion planned (during dialysis today) - no obvious bleeding -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 Confirmed w/ RN - no obvious bleeding w/ drop in Hgb. Continue lactulose for 2-3 BMs daily, continue Xifaxan. IVY BETH Jun 05, 2016 09:24
--- NOTE | 2016-06-05 10:24 | PDOC ---
PROGRESS NOTES Subjective Subjective No new complaints. Objective Objective Vital Signs Date Time Temp Pulse Resp B/P Pulse Ox O2 Delivery O2 Flow Rate FiO2 06/05/16 07:48 94 Room Air 06/05/16 07:00 96.9 100 18 131/81 96.9 06/04/16 20:00 2.0 Intake and Output 06/05/16 07:00 Intake Total 0 ml Output Total 300 ml Balance -300 ml Intake Oral 0 ml Output Urine Total 300 ml # Voids 4 # Bowel Movements 3 Physical Exam Physical Exam She is awake and talking,supine in bed and does not seem to be in any distress. Assessment Assessment Problems Medical Problems: (1) Altered mental status Status: Acute (2) Hyperammonemia Status: Acute Plan Plan of Care To SNF when medically stable. Comment Review of Relevant I have reviewed the following items amy (where applicable) has been applied. Labs Laboratory Tests Test 06/03/16 12:30 06/04/16 03:27 06/05/16 04:05 Ammonia 29mcmol/L (11-34) 186mcmol/L (11-34) White Blood Count 12.9x10^3/uL (4.0-11.0) 8.0x10^3/uL (4.0-11.0) Red Blood Count 2.19x10^6/uL (3.50-5.40) 1.88x10^6/uL (3.50-5.40) Hemoglobin 7.7g/dL (12.0-15.5) 6.8g/dL (12.0-15.5) Hematocrit 21.8% (36.0-47.0) 19.3% (36.0-47.0) Mean Corpuscular Volume 100fL (79-100) 103fL (79-100) Mean Corpuscular Hemoglobin 35pg (25-35) 36pg (25-35) Mean Corpuscular Hemoglobin Concent 35g/dL (31-37) 35g/dL (31-37) Red Cell Distribution Width 19.8% (11.5-14.5) 19.6% (11.5-14.5) Platelet Count 123x10^3/uL (140-400) 88x10^3/uL (140-400) Neutrophils (%) (Auto) 77% (31-73) 67% (31-73) Lymphocytes (%) (Auto) 12% (24-48) 19% (24-48) Monocytes (%) (Auto) 11% (0-9) 13% (0-9) Eosinophils (%) (Auto) 0% (0-3) 1% (0-3) Basophils (%) (Auto) 0% (0-3) 0% (0-3) Neutrophils # (Auto) 10.0x10^3uL (1.8-7.7) 5.4x10^3uL (1.8-7.7) Lymphocytes # (Auto) 1.5x10^3/uL (1.0-4.8) 1.5x10^3/uL (1.0-4.8) Monocytes # (Auto) 1.4x10^3/uL (0.0-1.1) 1.1x10^3/uL (0.0-1.1) Eosinophils # (Auto) 0.0x10^3/uL (0.0-0.7) 0.1x10^3/uL (0.0-0.7) Basophils # (Auto) 0.0x10^3/uL (0.0-0.2) 0.0x10^3/uL (0.0-0.2) Sodium Level 136mmol/L (136-145) 140mmol/L (136-145) Potassium Level 4.7mmol/L (3.5-5.1) 3.6mmol/L (3.5-5.1) Chloride Level 103mmol/L (98-107) 103mmol/L (98-107) Carbon Dioxide Level 20mmol/L (21-32) 27mmol/L (21-32) Anion Gap 13 (6-14) 10 (6-14) Blood Urea Nitrogen 33mg/dL (7-20) 20mg/dL (7-20) Creatinine 3.8mg/dL (0.6-1.0) 2.1mg/dL (0.6-1.0) Estimated GFR (Cockcroft-Gault) 11.7 23.2 Glucose Level 145mg/dL (70-99) 105mg/dL (70-99) Calcium Level 8.8mg/dL (8.5-10.1) 8.6mg/dL (8.5-10.1) Phosphorus Level 4.2mg/dL (2.6-4.7) 3.1mg/dL (2.6-4.7) Magnesium Level 2.6mg/dL (1.8-2.4) 2.0mg/dL (1.8-2.4) Albumin 2.2g/dL (3.4-5.0) 2.1g/dL (3.4-5.0) Laboratory Tests Test 06/05/16 04:05 White Blood Count 8.0x10^3/uL (4.0-11.0) Red Blood Count 1.88x10^6/uL (3.50-5.40) Hemoglobin 6.8g/dL (12.0-15.5) Hematocrit 19.3% (36.0-47.0) Mean Corpuscular Volume 103fL (79-100) Mean Corpuscular Hemoglobin 36pg (25-35) Mean Corpuscular Hemoglobin Concent 35g/dL (31-37) Red Cell Distribution Width 19.6% (11.5-14.5) Platelet Count 88x10^3/uL (140-400) Neutrophils (%) (Auto) 67% (31-73) Lymphocytes (%) (Auto) 19% (24-48) Monocytes (%) (Auto) 13% (0-9) Eosinophils (%) (Auto) 1% (0-3) Basophils (%) (Auto) 0% (0-3) Neutrophils # (Auto) 5.4x10^3uL (1.8-7.7) Lymphocytes # (Auto) 1.5x10^3/uL (1.0-4.8) Monocytes # (Auto) 1.1x10^3/uL (0.0-1.1) Eosinophils # (Auto) 0.1x10^3/uL (0.0-0.7) Basophils # (Auto) 0.0x10^3/uL (0.0-0.2) Sodium Level 140mmol/L (136-145) Potassium Level 3.6mmol/L (3.5-5.1) Chloride Level 103mmol/L (98-107) Carbon Dioxide Level 27mmol/L (21-32) Anion Gap 10 (6-14) Blood Urea Nitrogen 20mg/dL (7-20) Creatinine 2.1mg/dL (0.6-1.0) Estimated GFR (Cockcroft-Gault) 23.2 Glucose Level 105mg/dL (70-99) Calcium Level 8.6mg/dL (8.5-10.1) Phosphorus Level 3.1mg/dL (2.6-4.7) Magnesium Level 2.0mg/dL (1.8-2.4) Albumin 2.1g/dL (3.4-5.0) Microbiology 05/28/16 Blood Culture - Final, Complete NO GROWTH AFTER 5 DAYS Medications Current Medications Sodium Chloride (Iv Sodium Chloride 0.9% 1000ml Bag) 1,000 ml @ 1,000 mls/hr 1X ONCE IV Last administered on 05/28/16 16:07; Start 05/28/16 at 15:45; Stop 05/28/16 at 16:44; Status DC Ondansetron HCl 4 mg 4 mg PRN Q8HRS PRN IV NAUSEA/VOMITING; Start 05/28/16 at 17 :15; Stop 05/29/16 at 09:22; Status DC Sodium Chloride (Iv Sodium Chloride 0.9% 1000ml Bag) 1,000 ml @ 125 mls/hr Q8H IV ; Start 05/28/16 at 17:07; Stop 05/28/16 at 18:38; Status DC Lactulose 20 gm 20 gm PRN BID PRN PO CONSTIPATION; Start 05/28/16 at 18:45; Stop 05/29/16 at 10:00; Status DC Sodium Chloride (Iv Sodium Chloride 0.9% 1000ml Bag) 1,000 ml @ 100 mls/hr Q10H IV Last administered on 06/01/16 01:26; Start 05/28/16 at 19:00; Stop at 15:33; Status DC Acetaminophen (Tylenol) 325 mg PRN Q6HRS PRN PO MILD PAIN / TEMP Last administered on 06/03/16 20:18; Start 05/28/16 at 19:00 Acetaminophen/ Hydrocodone Bitart (Lortab 5/325) 1 tab PRN Q6HRS PRN PO MODERATE TO SEVERE PAIN Last administered on 06/04/16 10:06; Start 05/28/16 at 19 :00 Hydralazine HCl (Apresoline) 10 mg PRN Q4HRS PRN IVP ELEVATED BP, SEE COMMENTS ; Start 05/28/16 at 19:00 Ondansetron HCl (Zofran) 4 mg PRN Q8HRS PRN IV NAUSEA/VOMITING Last administered on 05/30/16 03:36; Start 05/28/16 at 19:00 Albuterol Sulfate (Ventolin Neb Soln) 2.5 mg PRN Q4HRS PRN NEB SHORTNESS OF BREATH; Start 05/28/16 at 19:00 Lactulose 20 gm BID PO Last administered on 05/30/16 08:29; Start 05/29/16 at 10 :00; Stop 05/30/16 at 14:43; Status DC Pantoprazole Sodium (Protonix) 40 mg DAILYAC PO Last administered on 06/05/16 09:09; Start 05/29/16 at 10:00 Lactulose 20 gm TID PO ; Start 05/31/16 at 09:00; Stop 05/31/16 at 09:00; Status DC Lactulose 20 gm TID PO Last administered on 05/31/16 08:33; Start 05/30/16 at 14 :45; Stop 05/31/16 at 09:45; Status DC Rifaximin (Xifaxan) 550 mg Q12HR PO Last administered on 06/05/16 09:10; Start 05/30/16 at 15:00 Lactulose 20 gm 20 gm [id number] PO Last administered on 05/31/16 14:59; Start at 14:00; Stop 06/02/16 at 10:11; Status DC Magnesium Sulfate/ Dextrose 50 ml @ 25 mls/hr PRN DAILY PRN IV for Mag < 1.7 on am labs; Start 06/01/16 at 15:30 Sodium Bicarbonate/ Sodium Chloride (Iv Sodium Chloride 0.45%) 1,075 ml @ 100 mls/hr [id number] IV Last administered on 06/02/16 11:51; Start 06/01/16 at 15:45; Stop 06/02/16 at 18:18; Status DC Potassium Chloride (Klor-Con) 40 meq 1X ONCE PO Last administered on 06/02/16 08:39; Start 06/02/16 at 09:00; Stop 06/02/16 at 09:01; Status DC Lactulose 20 gm PRN BID PRN PO CONSTIPATION; Start 06/03/16 at 09:00; Stop at 12:00; Status DC Lactulose 20 gm BID PO Last administered on 06/02/16 11:49; Start 06/02/16 at 12 :00; Stop 06/03/16 at 10:38; Status DC Methylprednisolone Acetate (Depo-Medrol 40mg Vial) 40 mg 1X ONCE IM Last administered on 06/02/16 16:46; Start 06/02/16 at 16:30; Stop 06/02/16 at 16:31; Status DC Bupivacaine HCl (Sensorcaine-Mpf 0.25%) 10 ml 1X ONCE IJ Last administered on 06/02/16 16:46; Start 06/02/16 at 16:30; Stop 06/02/16 at 16:31; Status DC Methylprednisolone Acetate 40 mg 40 mg 1X ONCE IM Last administered on 16:45; Start 06/02/16 at 16:45; Stop 06/02/16 at 16:46; Status DC Sodium Bicarbonate/ Potassium Chloride/Sodium Chloride (Iv Sodium Chloride 0.45% ) 1,095 ml @ 100 mls/hr [id number] IV Last administered on 06/02/16 21:05; Start 06/02/16 at 18:30; Stop 06/03/16 at 05:26; Status DC Potassium Chloride 40 meq 40 meq 1X PRN PRN PO if repeat K < 3.7; Start at 18:15; Stop 06/03/16 at 05:00; Status DC Sodium Bicarbonate 75 meq/Sodium Chloride 1,075 ml @ 100 mls/hr [id number] IV Last administered on 06/04/16 03:30; Start 06/03/16 at 06:00; Stop 06/04/16 at 11: 39; Status DC Magnesium Sulfate/ Dextrose (Magnesium Sulfate PREMIX 4GM) 100 ml @ 25 mls/hr 1X ONCE IV Last administered on 06/03/16 10:10; Start 06/03/16 at 09:00; Stop 06/03/16 at 12:59; Status DC Magnesium Oxide (Magnesium Oxide) 400 mg DAILY PO Last administered on 09:10; Start 06/03/16 at 09:00 Lidocaine/Sodium Bicarbonate (Buffered Lidocaine 1%) 20 ml STK-MED ONCE IJ ; Start 06/03/16 at 10:23; Stop 06/03/16 at 10:24; Status DC Midazolam HCl (Versed) 5 mg STK-MED ONCE .ROUTE ; Start 06/03/16 at 10:24; Stop 06/03/16 at 10:25; Status DC Fentanyl Citrate (Fentanyl 5ml Vial) 250 mcg STK-MED ONCE .ROUTE ; Start at 10:24; Stop 06/03/16 at 10:25; Status DC Lidocaine/Sodium Bicarbonate (Buffered Lidocaine 1%) 20 ml 1X ONCE IJ Last administered on 06/03/16 10:57; Start 06/03/16 at 10:45; Stop 06/03/16 at 10:46; Status DC Midazolam HCl (Versed) 3 mg 1X ONCE IV Last administered on 06/03/16 10:58; Start 06/03/16 at 10:45; Stop 06/03/16 at 10:46; Status DC Fentanyl Citrate (Fentanyl 5ml Vial) 150 mcg 1X ONCE IV Last administered on 10:58; Start 06/03/16 at 10:45; Stop 06/03/16 at 10:46; Status DC Lactulose 20 gm DAILY PO Last administered on 06/04/16 09:02; Start 06/04/16 at 09:00; Stop 06/04/16 at 12:32; Status DC Albuterol/ Ipratropium (Duoneb) 3 ml RTQID NEB Last administered on 06/05/16 07:47; Start 06/03/16 at 20:00 Alprazolam (Xanax) 0.25 mg PRN Q8HRS PRN PO ANXIETY / AGITATION Last administered on 06/04/16 21:05; Start 06/04/16 at 10:15 Haloperidol Lactate (Haldol) 0.5 mg PRN Q6HRS PRN IVP AGITATION, 2ND CHOICE; Start 06/04/16 at 10:15 Lactulose 20 gm BID PO Last administered on 06/05/16 09:10; Start 06/04/16 at 21:00 Midazolam HCl (Versed) 2 mg STK-MED ONCE .ROUTE ; Start 06/04/16 at 12:35; Stop 06/04/16 at 12:36; Status DC Fentanyl Citrate 100 mcg 100 mcg STK-MED ONCE .ROUTE ; Start 06/04/16 at 12:35; Stop 06/04/16 at 12:36; Status DC Cefazolin Sodium (Ancef 1gm Ivpb For Omni) 50 ml @ As Directed STK-MED ONCE IV ; Start 06/04/16 at 12:35; Stop 06/04/16 at 12:36; Status DC Heparin Sodium (Porcine) 10,000 unit STK-MED ONCE .ROUTE ; Start 06/04/16 at 12: 37; Stop 06/04/16 at 12:38; Status DC Lidocaine/ Epinephrine 20 ml 20 ml STK-MED ONCE .ROUTE ; Start 06/04/16 at 12:37 ; Stop 06/04/16 at 12:38; Status DC Heparin Sodium/ Sodium Chloride 500 ml @ As Directed STK-MED ONCE .ROUTE ; Start 06/04/16 at 12:37; Stop 06/04/16 at 12:38; Status DC Heparin Sodium/ Sodium Chloride 1,000 unit 1X ONCE IART Last administered on 13:09; Start 06/04/16 at 13:15; Stop 06/04/16 at 13:16; Status DC Midazolam HCl (Versed) 2 mg 1X ONCE IV Last administered on 06/04/16 13:12; Start 06/04/16 at 13:15; Stop 06/04/16 at 13:16; Status DC Fentanyl Citrate 100 mcg 100 mcg 1X ONCE IV Last administered on 06/04/16 13: 12; Start 06/04/16 at 13:15; Stop 06/04/16 at 13:16; Status DC Cefazolin Sodium (Ancef 1gm Ivpb For Omni) 50 ml @ 100 mls/hr 1X ONCE IV Last administered on 06/04/16 13:13; Start 06/04/16 at 13:15; Stop 06/04/16 at 13: 44; Status DC Heparin Sodium (Porcine) 2,600 unit 1X ONCE INT CAT Last administered on 13:10; Start 06/04/16 at 13:15; Stop 06/04/16 at 13:16; Status DC Lidocaine/ Epinephrine 20 ml 20 ml 1X ONCE IJ Last administered on 06/04/16 13 :11; Start 06/04/16 at 13:15; Stop 06/04/16 at 13:16; Status DC Sodium Chloride (Iv Sodium Chloride 0.9% 1000ml Bag) 1,000 ml @ 1,000 mls/hr Q1H PRN IV hypotension; Start 06/04/16 at 18:12; Stop 06/05/16 at 00:11; Status DC Sodium Chloride (Normal Saline Flush) 10 ml 1X PRN PRN IV AP catheter pack; Start 06/04/16 at 18:15; Stop 06/05/16 at 18:14 Sodium Chloride (Normal Saline Flush) 10 ml 1X PRN PRN IV STAFF ASSISTANT catheter pack; Start 06/04/16 at 18:15; Stop 06/05/16 at 18:14 Info (PHARMACY MONITORING -- do not chart) 1 each PRN DAILY PRN MC SEE COMMENTS ; Start 06/04/16 at 18:15; Status UNV Info (PHARMACY MONITORING -- do not chart) 1 each PRN DAILY PRN MC SEE COMMENTS ; Start 06/04/16 at 18:15 Albuterol/ Ipratropium (Duoneb) 3 ml 1X ONCE NEB Last administered on 00:29; Start 06/05/16 at 00:15; Stop 06/05/16 at 00:16; Status DC Active Scripts Active Pantoprazole Sodium 40 Mg Tablet.dr 40 Mg PO DAILYAC 30 Days Reported Neomycin Sulfate 500 Mg Tablet 1 Tab PO BID Spironolactone 50 Mg Tablet 1 Tab PO DAILY Mag-Oxide (Magnesium Oxide) 400 Mg Tablet 2 Tab PO BID Vitamin D3 (Cholecalciferol (Vitamin D3)) 400 Unit Tablet 400 Unit PO BID Fish Oil Conc 1,000 mg Softgel ([place]-3/Dha/Epa/Fish Oil) 1,000 Mg Capsule 3, 000 Mg PO DAILY Multiple Vitamin (Multivitamin With Minerals) 1 Each Tablet 1 Each PO Corzide 40-5 Tablet (Nadolol/Bendroflumethiazide) 1 Each Tablet 0.5 Tab PO DAILY Coenzyme Q10 (Ubidecarenone) 100 Mg Capsule 100 Mg PO DAILY Calcium (Calcium Carbonate) 600 Mg Tablet 600 Mg PO BID Vitals/I & O Vital Sign - Last 24 Hours 06/04/16 06/04/16 06/04/16 06/04/16 11:00 11:06 12:38 13:12 Temp 97.9 97.9 Pulse 70 Resp 17 20 16 B/P 123/66 Pulse Ox 95 92 95 O2 Delivery Room Air Room Air Room Air Nasal Cannula O2 Flow Rate 2.0 06/04/16 06/04/16 06/04/16 06/04/16 13:16 13:44 15:36 19:00 Temp 97.3 95.7 97.3 95.7 Pulse 79 75 102 Resp 16 20 B/P 125/70 125/72 Pulse Ox 98 93 90 O2 Delivery Nasal Cannula Room Air Room Air Room Air O2 Flow Rate 2.0 06/04/16 06/04/16 06/04/16 06/05/16 19:25 20:00 23:00 00:31 Temp 97.3 97.3 Pulse 83 Resp 18 B/P 148/75 Pulse Ox 97 92 95 O2 Delivery Room Air Room Air Room Air Room Air O2 Flow Rate 2.0 06/05/16 06/05/16 07:00 07:48 Temp 96.9 96.9 Pulse 100 Resp 18 B/P 131/81 Pulse Ox 93 94 O2 Delivery Room Air Room Air Intake and Output 06/04/16 06/04/16 06/05/16 15:00 23:00 07:00 Intake Total 0 ml Output Total 300 ml Balance 0 ml -300 ml CESARIO ABARCA MD Jun 05, 2016 10:24
--- NOTE | 2016-06-05 11:08 | PDOC ---
SUBJECTIVE ROS KVNG doing and looking much better today CVS: no Orthopnea, no CP RESP: no SOB, no SALINAS GI: no Nausea, no Vomiting : no Dysuria, no Urgency OBJECTIVE Vital Signs Vital Signs Date Time Temp Pulse Resp B/P Pulse Ox O2 Delivery O2 Flow Rate FiO2 06/05/16 07:48 94 Room Air 06/05/16 07:00 96.9 100 18 131/81 96.9 06/04/16 20:00 2.0 I & 0 Intake and Output 06/05/16 07:00 Intake Total 0 ml Output Total 300 ml Balance -300 ml Intake Oral 0 ml Output Urine Total 300 ml # Voids 4 # Bowel Movements 3 PHYSICAL EXAM Physical Exam GEN: Awake, Oriented x 1, In no distress; Reportedly and appears more alert and oriented EYES: Vision Unchanged as best assessable with AMS. Conjunctiva Normal EN: No EN Drainage, Mucous Membranes moist NECK: no JVD, min JVP, Supple, no Thyromegaly CVS: S1S2, + Murmur, No Gallop, No Rub,+ Edema RESP: no Rales, no Rhonchi,no Acc. Muscle Use GI: BS + ve, NO Bruit, Non Tender, ? min Distended : no CVA tenderness, no Suprapubic Tenderness DIAGNOSIS/ASSESSMENT ARF: (Cannot R/o ESRD pending Myeloma eval and Rx) Dialysis as below F 180 NR 3.0 Hrs 3 K 2.5 Ca 140 Na 35 HC03 Qb 350 + Qd 500+ Heparin 0 Units Uf 1-2 Kgs or to dry weight as tolerated May give 25-50 gms of 25% Albumin if needed to maintain Hemodynamic stability Treatment plan reviewed and discussed with iuss analyst Met Acidosis - better after HD x 1; ? RTA from paraprotein ANEMIA; defer WQ/up and Mx to Heme/ onc; Pans for BT onted HTN: Current BP meds as reviewed. See orders for changes. Paraproteinemia - s/p BmBx await Path. If -ve for mul. 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 Low Mag - better now COMMENT/RELEVANT DATA Meds Current Medications Medications (Trade) Dose Ordered Sig/Sherri Start Time Stop Time Status Last Admin Dose Admin Acetaminophen (Tylenol) 325 mg PRN Q6HRS PRN 05/28/16 19:00 06/03/16 20:18 325 MG Acetaminophen/ Hydrocodone Bitart (Lortab 5/325) 1 tab PRN Q6HRS PRN 05/28/16 19:00 06/04/16 10:06 1 TAB Albuterol Sulfate (Ventolin Neb Soln) 2.5 mg PRN Q4HRS PRN 05/28/16 19:00 Albuterol/ Ipratropium (Duoneb) 3 ml 1X ONCE 06/05/16 00:15 06/05/16 00:16 DC 06/05/16 00:29 3 ML Alprazolam (Xanax) 0.25 mg PRN Q8HRS PRN 06/04/16 10:15 06/04/16 21:05 0.25 MG Bupivacaine HCl (Sensorcaine-Mpf 0.25%) 10 ml 1X ONCE 06/02/16 16:30 06/02/16 16:31 DC 06/02/16 16:46 10 ML Cefazolin Sodium (Ancef 1gm Ivpb For Omni) 50 ml @ 100 mls/hr 1X ONCE 06/04/16 13:15 06/04/16 13:44 DC 06/04/16 13:13 100 MLS/HR Fentanyl Citrate (Fentanyl 2ml Vial) 100 mcg STK-MED ONCE 06/04/16 12:35 06/04/16 12:36 DC Fentanyl Citrate (Fentanyl 5ml Vial) 150 mcg 1X ONCE 06/03/16 10:45 06/03/16 10:46 DC 06/03/16 10:58 125 MCG Fentanyl Citrate 100 mcg 100 mcg 1X ONCE 06/04/16 13:15 06/04/16 13:16 DC 06/04/16 13:12 100 MCG Haloperidol Lactate (Haldol) 0.5 mg PRN Q6HRS PRN 06/04/16 10:15 Heparin Sodium (Porcine) 2,600 unit 1X ONCE 06/04/16 13:15 06/04/16 13:16 DC 06/04/16 13:10 4,000 UNIT Heparin Sodium/ Sodium Chloride 1,000 unit 1X ONCE 06/04/16 13:15 06/04/16 13:16 DC 06/04/16 13:09 1,000 UNIT Hydralazine HCl (Apresoline) 10 mg PRN Q4HRS PRN 05/28/16 19:00 Info (PHARMACY MONITORING -- do not chart) 1 each PRN DAILY PRN 06/04/16 18:15 Lactulose 20 gm BID 06/04/16 21:00 06/05/16 09:10 20 GM Lactulose 20 gm 20 gm [id number] 05/31/16 14:00 06/02/16 10:11 DC 05/31/16 14:59 20 GM Lidocaine/ Epinephrine (Xylocaine 1%-Epi 1:100,000) 20 ml STK-MED ONCE 06/04/16 12:37 06/04/16 12:38 DC Lidocaine/ Epinephrine 20 ml 20 ml 1X ONCE 06/04/16 13:15 06/04/16 13:16 DC 06/04/16 13:11 6 ML Lidocaine/Sodium Bicarbonate (Buffered Lidocaine 1%) 20 ml 1X ONCE 06/03/16 10:45 06/03/16 10:46 DC 06/03/16 10:57 7 ML Magnesium Oxide (Magnesium Oxide) 400 mg DAILY 06/03/16 09:00 06/05/16 09:10 400 MG Magnesium Sulfate/ Dextrose (Magnesium Sulfate PREMIX 4GM) 100 ml @ 25 mls/hr 1X ONCE 06/03/16 09:00 06/03/16 12:59 DC 06/03/16 10:10 25 MLS/HR Methylprednisolone Acetate (Depo-Medrol 40mg Vial) 40 mg 1X ONCE 06/02/16 16:30 06/02/16 16:31 DC 06/02/16 16:46 40 MG Methylprednisolone Acetate 40 mg 40 mg 1X ONCE 06/02/16 16:45 06/02/16 16:46 DC 06/02/16 16:45 40 MG Midazolam HCl (Versed) 2 mg 1X ONCE 06/04/16 13:15 06/04/16 13:16 DC 06/04/16 13:12 2 MG Ondansetron HCl (Zofran) 4 mg PRN Q8HRS PRN 05/28/16 19:00 05/30/16 03:36 4 MG Pantoprazole Sodium (Protonix) 40 mg DAILYAC 05/29/16 10:00 06/05/16 09:09 40 MG Potassium Chloride 40 meq 40 meq 1X PRN PRN 06/02/16 18:15 06/03/16 05:00 DC Potassium Chloride (Klor-Con) 40 meq 1X ONCE 06/02/16 09:00 06/02/16 09:01 DC 06/02/16 08:39 40 MEQ Rifaximin (Xifaxan) 550 mg Q12HR 05/30/16 15:00 06/05/16 09:10 550 MG Sodium Bicarbonate 75 meq/Sodium Chloride 1,075 ml @ 100 mls/hr [id number] 06/03/16 06:00 06/04/16 11:39 DC 06/04/16 03:30 100 MLS/HR Sodium Bicarbonate/ Potassium Chloride/Sodium Chloride (Iv Sodium Chloride 0.45%) 1,095 ml @ 100 mls/hr [id number] 06/02/16 18:30 06/03/16 05:26 DC 06/02/16 21:05 100 MLS/HR Sodium Bicarbonate/ Sodium Chloride (Iv Sodium Chloride 0.45%) 1,075 ml @ 100 mls/hr [id number] 06/01/16 15:45 06/02/16 18:18 DC 06/02/16 11:51 100 MLS/HR Sodium Chloride (Iv Sodium Chloride 0.9% 1000ml Bag) 1,000 ml @ 1,000 mls/hr Q1H PRN 06/04/16 18:12 06/05/16 00:11 DC Sodium Chloride (Normal Saline Flush) 10 ml 1X PRN PRN 06/04/16 18:15 06/05/16 18:14 Lab Laboratory Tests Test 06/05/16 04:05 White Blood Count 8.0x10^3/uL (4.0-11.0) Red Blood Count 1.88x10^6/uL (3.50-5.40) Hemoglobin 6.8g/dL (12.0-15.5) Hematocrit 19.3% (36.0-47.0) Mean Corpuscular Volume 103fL (79-100) Mean Corpuscular Hemoglobin 36pg (25-35) Mean Corpuscular Hemoglobin Concent 35g/dL (31-37) Red Cell Distribution Width 19.6% (11.5-14.5) Platelet Count 88x10^3/uL (140-400) Neutrophils (%) (Auto) 67% (31-73) Lymphocytes (%) (Auto) 19% (24-48) Monocytes (%) (Auto) 13% (0-9) Eosinophils (%) (Auto) 1% (0-3) Basophils (%) (Auto) 0% (0-3) Neutrophils # (Auto) 5.4x10^3uL (1.8-7.7) Lymphocytes # (Auto) 1.5x10^3/uL (1.0-4.8) Monocytes # (Auto) 1.1x10^3/uL (0.0-1.1) Eosinophils # (Auto) 0.1x10^3/uL (0.0-0.7) Basophils # (Auto) 0.0x10^3/uL (0.0-0.2) Sodium Level 140mmol/L (136-145) Potassium Level 3.6mmol/L (3.5-5.1) Chloride Level 103mmol/L (98-107) Carbon Dioxide Level 27mmol/L (21-32) Anion Gap 10 (6-14) Blood Urea Nitrogen 20mg/dL (7-20) Creatinine 2.1mg/dL (0.6-1.0) Estimated GFR (Cockcroft-Gault) 23.2 Glucose Level 105mg/dL (70-99) Calcium Level 8.6mg/dL (8.5-10.1) Phosphorus Level 3.1mg/dL (2.6-4.7) Magnesium Level 2.0mg/dL (1.8-2.4) Albumin 2.1g/dL (3.4-5.0) WIL GRANDE MD Jun 05, 2016 11:08
[2016-06-05] MEDS ORDERED: IV NORMAL SALINE 1000ML BAG 1,000 ML IV PRN (11:56)
[2016-06-05] MEDS ORDERED: 0.9 % SODIUM CHLORIDE 10 ML DISP.SYRIN. IV PRN ×2 (12:00)
[2016-06-05] MEDS ORDERED: DIALYSIS PATIENT. MC PRN (12:00)
[2016-06-05] MEDS ORDERED: ALBUMIN HUMAN 25% 200 ML IV PRN (12:00)
[2016-06-05] MEDS ORDERED: ACETAMINOPHEN 500 MG TABLET PO PRN (12:00)
[2016-06-05] MEDS ORDERED: DIPHENHYDRAMINE 50 MG/ML VIAL IV PRN ×2 (12:00)
--- NOTE | 2016-06-05 13:33 | PDOC ---
PROGRESS NOTES Chief Complaint Chief Complaint Altered mental status, hyperammonemia 1. Encephalopathy, possible metabolic, hepatic. 2. Acute kidney injury, ATN,myeloma? 3. Metabolic acidosis. 4. Thrombocytopenia 2/2 cirrhosis likely 5. Anemia, chronic. 6. Hyperbilirubinemia. 7. Alcoholism. 8. high INR 2/2 CIrrhosis likely 9, LEFT thigh pain, 2/2 OA? 10. hypomagnesemia plan 1. fu with renal, onco 2. fu with labs ordered for onco 3. ivf with bicarb 4. monitor Cr PTOT SW, will do HH as per PT, but SNF is better cont rifaxin, cont lactulose to keep BM 2-3 times a day. UNFOrtunately, pt always refuse sometimes. check left hip xr, dr. James consulted, got left knee steroid injection, better now BM bx 06/03 as per onco, result pending replete Mag 4g HD start 06/04 as per renal haldol, xanax prn 1u PRBC 06/05 History of Present Illness History of Present Illness t refused lactulose from time to time. ammonia level up and down related to BM or now. altho i explained to her many times has to keep BM 2-3 times perday Cr better with HD from 06/04 knee pain better post steroid injection more confusion 06/04, better 06/05 Vitals Vitals Vital Signs Date Time Temp Pulse Resp B/P Pulse Ox O2 Delivery O2 Flow Rate FiO2 06/05/16 11:53 Room Air 06/05/16 11:00 95.9 98 18 127/72 91 95.9 06/04/16 20:00 2.0 Physical Exam Physical Exam aaox2 to person and place only General: Alert, Other Heart: Regular rate Lungs: Clear Abdomen: Soft, No tenderness, Other (no ascites) Extremities: No edema Skin: Other (no bruising) Labs LABS Laboratory Tests Test 06/05/16 04:05 06/05/16 10:05 White Blood Count 8.0x10^3/uL (4.0-11.0) Red Blood Count 1.88x10^6/uL (3.50-5.40) Hemoglobin 6.8g/dL (12.0-15.5) Hematocrit 19.3% (36.0-47.0) Mean Corpuscular Volume 103fL (79-100) Mean Corpuscular Hemoglobin 36pg (25-35) Mean Corpuscular Hemoglobin Concent 35g/dL (31-37) Red Cell Distribution Width 19.6% (11.5-14.5) Platelet Count 88x10^3/uL (140-400) Neutrophils (%) (Auto) 67% (31-73) Lymphocytes (%) (Auto) 19% (24-48) Monocytes (%) (Auto) 13% (0-9) Eosinophils (%) (Auto) 1% (0-3) Basophils (%) (Auto) 0% (0-3) Neutrophils # (Auto) 5.4x10^3uL (1.8-7.7) Lymphocytes # (Auto) 1.5x10^3/uL (1.0-4.8) Monocytes # (Auto) 1.1x10^3/uL (0.0-1.1) Eosinophils # (Auto) 0.1x10^3/uL (0.0-0.7) Basophils # (Auto) 0.0x10^3/uL (0.0-0.2) Sodium Level 140mmol/L (136-145) Potassium Level 3.6mmol/L (3.5-5.1) Chloride Level 103mmol/L (98-107) Carbon Dioxide Level 27mmol/L (21-32) Anion Gap 10 (6-14) Blood Urea Nitrogen 20mg/dL (7-20) Creatinine 2.1mg/dL (0.6-1.0) Estimated GFR (Cockcroft-Gault) 23.2 Glucose Level 105mg/dL (70-99) Calcium Level 8.6mg/dL (8.5-10.1) Phosphorus Level 3.1mg/dL (2.6-4.7) Magnesium Level 2.0mg/dL (1.8-2.4) Albumin 2.1g/dL (3.4-5.0) Ammonia 33mcmol/L (11-34) Review of Systems Review of Systems no fever, chills, sob or chest pain Assessment and Plan Assessmemt and Plan Problems Medical Problems: (1) Altered mental status Status: Acute (2) Hyperammonemia Status: Acute Problems: Comment Review of Relevant I have reviewed the following items amy (where applicable) has been applied. Labs Laboratory Tests Test 06/04/16 03:27 06/05/16 04:05 06/05/16 10:05 White Blood Count 12.9x10^3/uL (4.0-11.0) 8.0x10^3/uL (4.0-11.0) Red Blood Count 2.19x10^6/uL (3.50-5.40) 1.88x10^6/uL (3.50-5.40) Hemoglobin 7.7g/dL (12.0-15.5) 6.8g/dL (12.0-15.5) Hematocrit 21.8% (36.0-47.0) 19.3% (36.0-47.0) Mean Corpuscular Volume 100fL (79-100) 103fL (79-100) Mean Corpuscular Hemoglobin 35pg (25-35) 36pg (25-35) Mean Corpuscular Hemoglobin Concent 35g/dL (31-37) 35g/dL (31-37) Red Cell Distribution Width 19.8% (11.5-14.5) 19.6% (11.5-14.5) Platelet Count 123x10^3/uL (140-400) 88x10^3/uL (140-400) Neutrophils (%) (Auto) 77% (31-73) 67% (31-73) Lymphocytes (%) (Auto) 12% (24-48) 19% (24-48) Monocytes (%) (Auto) 11% (0-9) 13% (0-9) Eosinophils (%) (Auto) 0% (0-3) 1% (0-3) Basophils (%) (Auto) 0% (0-3) 0% (0-3) Neutrophils # (Auto) 10.0x10^3uL (1.8-7.7) 5.4x10^3uL (1.8-7.7) Lymphocytes # (Auto) 1.5x10^3/uL (1.0-4.8) 1.5x10^3/uL (1.0-4.8) Monocytes # (Auto) 1.4x10^3/uL (0.0-1.1) 1.1x10^3/uL (0.0-1.1) Eosinophils # (Auto) 0.0x10^3/uL (0.0-0.7) 0.1x10^3/uL (0.0-0.7) Basophils # (Auto) 0.0x10^3/uL (0.0-0.2) 0.0x10^3/uL (0.0-0.2) Sodium Level 136mmol/L (136-145) 140mmol/L (136-145) Potassium Level 4.7mmol/L (3.5-5.1) 3.6mmol/L (3.5-5.1) Chloride Level 103mmol/L (98-107) 103mmol/L (98-107) Carbon Dioxide Level 20mmol/L (21-32) 27mmol/L (21-32) Anion Gap 13 (6-14) 10 (6-14) Blood Urea Nitrogen 33mg/dL (7-20) 20mg/dL (7-20) Creatinine 3.8mg/dL (0.6-1.0) 2.1mg/dL (0.6-1.0) Estimated GFR (Cockcroft-Gault) 11.7 23.2 Glucose Level 145mg/dL (70-99) 105mg/dL (70-99) Calcium Level 8.8mg/dL (8.5-10.1) 8.6mg/dL (8.5-10.1) Phosphorus Level 4.2mg/dL (2.6-4.7) 3.1mg/dL (2.6-4.7) Magnesium Level 2.6mg/dL (1.8-2.4) 2.0mg/dL (1.8-2.4) Ammonia 186mcmol/L (11-34) 33mcmol/L (11-34) Albumin 2.2g/dL (3.4-5.0) 2.1g/dL (3.4-5.0) Laboratory Tests Test 06/05/16 04:05 06/05/16 10:05 White Blood Count 8.0x10^3/uL (4.0-11.0) Red Blood Count 1.88x10^6/uL (3.50-5.40) Hemoglobin 6.8g/dL (12.0-15.5) Hematocrit 19.3% (36.0-47.0) Mean Corpuscular Volume 103fL (79-100) Mean Corpuscular Hemoglobin 36pg (25-35) Mean Corpuscular Hemoglobin Concent 35g/dL (31-37) Red Cell Distribution Width 19.6% (11.5-14.5) Platelet Count 88x10^3/uL (140-400) Neutrophils (%) (Auto) 67% (31-73) Lymphocytes (%) (Auto) 19% (24-48) Monocytes (%) (Auto) 13% (0-9) Eosinophils (%) (Auto) 1% (0-3) Basophils (%) (Auto) 0% (0-3) Neutrophils # (Auto) 5.4x10^3uL (1.8-7.7) Lymphocytes # (Auto) 1.5x10^3/uL (1.0-4.8) Monocytes # (Auto) 1.1x10^3/uL (0.0-1.1) Eosinophils # (Auto) 0.1x10^3/uL (0.0-0.7) Basophils # (Auto) 0.0x10^3/uL (0.0-0.2) Sodium Level 140mmol/L (136-145) Potassium Level 3.6mmol/L (3.5-5.1) Chloride Level 103mmol/L (98-107) Carbon Dioxide Level 27mmol/L (21-32) Anion Gap 10 (6-14) Blood Urea Nitrogen 20mg/dL (7-20) Creatinine 2.1mg/dL (0.6-1.0) Estimated GFR (Cockcroft-Gault) 23.2 Glucose Level 105mg/dL (70-99) Calcium Level 8.6mg/dL (8.5-10.1) Phosphorus Level 3.1mg/dL (2.6-4.7) Magnesium Level 2.0mg/dL (1.8-2.4) Albumin 2.1g/dL (3.4-5.0) Ammonia 33mcmol/L (11-34) Microbiology 05/28/16 Blood Culture - Final, Complete NO GROWTH AFTER 5 DAYS Medications Current Medications Sodium Chloride (Iv Sodium Chloride 0.9% 1000ml Bag) 1,000 ml @ 1,000 mls/hr 1X ONCE IV Last administered on 05/28/16 16:07; Start 05/28/16 at 15:45; Stop 05/28/16 at 16:44; Status DC Ondansetron HCl 4 mg 4 mg PRN Q8HRS PRN IV NAUSEA/VOMITING; Start 05/28/16 at 17 :15; Stop 05/29/16 at 09:22; Status DC Sodium Chloride (Iv Sodium Chloride 0.9% 1000ml Bag) 1,000 ml @ 125 mls/hr Q8H IV ; Start 05/28/16 at 17:07; Stop 05/28/16 at 18:38; Status DC Lactulose 20 gm 20 gm PRN BID PRN PO CONSTIPATION; Start 05/28/16 at 18:45; Stop 05/29/16 at 10:00; Status DC Sodium Chloride (Iv Sodium Chloride 0.9% 1000ml Bag) 1,000 ml @ 100 mls/hr Q10H IV Last administered on 06/01/16 01:26; Start 05/28/16 at 19:00; Stop at 15:33; Status DC Acetaminophen (Tylenol) 325 mg PRN Q6HRS PRN PO MILD PAIN / TEMP Last administered on 06/03/16 20:18; Start 05/28/16 at 19:00 Acetaminophen/ Hydrocodone Bitart (Lortab 5/325) 1 tab PRN Q6HRS PRN PO MODERATE TO SEVERE PAIN Last administered on 06/04/16 10:06; Start 05/28/16 at 19 :00 Hydralazine HCl (Apresoline) 10 mg PRN Q4HRS PRN IVP ELEVATED BP, SEE COMMENTS ; Start 05/28/16 at 19:00 Ondansetron HCl (Zofran) 4 mg PRN Q8HRS PRN IV NAUSEA/VOMITING Last administered on 05/30/16 03:36; Start 05/28/16 at 19:00 Albuterol Sulfate (Ventolin Neb Soln) 2.5 mg PRN Q4HRS PRN NEB SHORTNESS OF BREATH; Start 05/28/16 at 19:00 Lactulose 20 gm BID PO Last administered on 05/30/16 08:29; Start 05/29/16 at 10 :00; Stop 05/30/16 at 14:43; Status DC Pantoprazole Sodium (Protonix) 40 mg DAILYAC PO Last administered on 06/05/16 09:09; Start 05/29/16 at 10:00 Lactulose 20 gm TID PO ; Start 05/31/16 at 09:00; Stop 05/31/16 at 09:00; Status DC Lactulose 20 gm TID PO Last administered on 05/31/16 08:33; Start 05/30/16 at 14 :45; Stop 05/31/16 at 09:45; Status DC Rifaximin (Xifaxan) 550 mg Q12HR PO Last administered on 06/05/16 09:10; Start 05/30/16 at 15:00 Lactulose 20 gm 20 gm [id number] PO Last administered on 05/31/16 14:59; Start at 14:00; Stop 06/02/16 at 10:11; Status DC Magnesium Sulfate/ Dextrose 50 ml @ 25 mls/hr PRN DAILY PRN IV for Mag < 1.7 on am labs; Start 06/01/16 at 15:30 Sodium Bicarbonate/ Sodium Chloride (Iv Sodium Chloride 0.45%) 1,075 ml @ 100 mls/hr [id number] IV Last administered on 06/02/16 11:51; Start 06/01/16 at 15:45; Stop 06/02/16 at 18:18; Status DC Potassium Chloride (Klor-Con) 40 meq 1X ONCE PO Last administered on 06/02/16 08:39; Start 06/02/16 at 09:00; Stop 06/02/16 at 09:01; Status DC Lactulose 20 gm PRN BID PRN PO CONSTIPATION; Start 06/03/16 at 09:00; Stop at 12:00; Status DC Lactulose 20 gm BID PO Last administered on 06/02/16 11:49; Start 06/02/16 at 12 :00; Stop 06/03/16 at 10:38; Status DC Methylprednisolone Acetate (Depo-Medrol 40mg Vial) 40 mg 1X ONCE IM Last administered on 06/02/16 16:46; Start 06/02/16 at 16:30; Stop 06/02/16 at 16:31; Status DC Bupivacaine HCl (Sensorcaine-Mpf 0.25%) 10 ml 1X ONCE IJ Last administered on 06/02/16 16:46; Start 06/02/16 at 16:30; Stop 06/02/16 at 16:31; Status DC Methylprednisolone Acetate 40 mg 40 mg 1X ONCE IM Last administered on 16:45; Start 06/02/16 at 16:45; Stop 06/02/16 at 16:46; Status DC Sodium Bicarbonate/ Potassium Chloride/Sodium Chloride (Iv Sodium Chloride 0.45% ) 1,095 ml @ 100 mls/hr [id number] IV Last administered on 06/02/16 21:05; Start 06/02/16 at 18:30; Stop 06/03/16 at 05:26; Status DC Potassium Chloride 40 meq 40 meq 1X PRN PRN PO if repeat K < 3.7; Start at 18:15; Stop 06/03/16 at 05:00; Status DC Sodium Bicarbonate 75 meq/Sodium Chloride 1,075 ml @ 100 mls/hr [id number] IV Last administered on 06/04/16 03:30; Start 06/03/16 at 06:00; Stop 06/04/16 at 11: 39; Status DC Magnesium Sulfate/ Dextrose (Magnesium Sulfate PREMIX 4GM) 100 ml @ 25 mls/hr 1X ONCE IV Last administered on 06/03/16 10:10; Start 06/03/16 at 09:00; Stop 06/03/16 at 12:59; Status DC Magnesium Oxide (Magnesium Oxide) 400 mg DAILY PO Last administered on 09:10; Start 06/03/16 at 09:00 Lidocaine/Sodium Bicarbonate (Buffered Lidocaine 1%) 20 ml STK-MED ONCE IJ ; Start 06/03/16 at 10:23; Stop 06/03/16 at 10:24; Status DC Midazolam HCl (Versed) 5 mg STK-MED ONCE .ROUTE ; Start 06/03/16 at 10:24; Stop 06/03/16 at 10:25; Status DC Fentanyl Citrate (Fentanyl 5ml Vial) 250 mcg STK-MED ONCE .ROUTE ; Start at 10:24; Stop 06/03/16 at 10:25; Status DC Lidocaine/Sodium Bicarbonate (Buffered Lidocaine 1%) 20 ml 1X ONCE IJ Last administered on 06/03/16 10:57; Start 06/03/16 at 10:45; Stop 06/03/16 at 10:46; Status DC Midazolam HCl (Versed) 3 mg 1X ONCE IV Last administered on 06/03/16 10:58; Start 06/03/16 at 10:45; Stop 06/03/16 at 10:46; Status DC Fentanyl Citrate (Fentanyl 5ml Vial) 150 mcg 1X ONCE IV Last administered on 10:58; Start 06/03/16 at 10:45; Stop 06/03/16 at 10:46; Status DC Lactulose 20 gm DAILY PO Last administered on 06/04/16 09:02; Start 06/04/16 at 09:00; Stop 06/04/16 at 12:32; Status DC Albuterol/ Ipratropium (Duoneb) 3 ml RTQID NEB Last administered on 06/05/16 11:52; Start 06/03/16 at 20:00 Alprazolam (Xanax) 0.25 mg PRN Q8HRS PRN PO ANXIETY / AGITATION Last administered on 06/04/16 21:05; Start 06/04/16 at 10:15 Haloperidol Lactate (Haldol) 0.5 mg PRN Q6HRS PRN IVP AGITATION, 2ND CHOICE; Start 06/04/16 at 10:15 Lactulose 20 gm BID PO Last administered on 06/05/16 09:10; Start 06/04/16 at 21:00 Midazolam HCl (Versed) 2 mg STK-MED ONCE .ROUTE ; Start 06/04/16 at 12:35; Stop 06/04/16 at 12:36; Status DC Fentanyl Citrate 100 mcg 100 mcg STK-MED ONCE .ROUTE ; Start 06/04/16 at 12:35; Stop 06/04/16 at 12:36; Status DC Cefazolin Sodium (Ancef 1gm Ivpb For Omni) 50 ml @ As Directed STK-MED ONCE IV ; Start 06/04/16 at 12:35; Stop 06/04/16 at 12:36; Status DC Heparin Sodium (Porcine) 10,000 unit STK-MED ONCE .ROUTE ; Start 06/04/16 at 12: 37; Stop 06/04/16 at 12:38; Status DC Lidocaine/ Epinephrine 20 ml 20 ml STK-MED ONCE .ROUTE ; Start 06/04/16 at 12:37 ; Stop 06/04/16 at 12:38; Status DC Heparin Sodium/ Sodium Chloride 500 ml @ As Directed STK-MED ONCE .ROUTE ; Start 06/04/16 at 12:37; Stop 06/04/16 at 12:38; Status DC Heparin Sodium/ Sodium Chloride 1,000 unit 1X ONCE IART Last administered on 13:09; Start 06/04/16 at 13:15; Stop 06/04/16 at 13:16; Status DC Midazolam HCl (Versed) 2 mg 1X ONCE IV Last administered on 06/04/16 13:12; Start 06/04/16 at 13:15; Stop 06/04/16 at 13:16; Status DC Fentanyl Citrate 100 mcg 100 mcg 1X ONCE IV Last administered on 06/04/16 13: 12; Start 06/04/16 at 13:15; Stop 06/04/16 at 13:16; Status DC Cefazolin Sodium (Ancef 1gm Ivpb For Omni) 50 ml @ 100 mls/hr 1X ONCE IV Last administered on 06/04/16 13:13; Start 06/04/16 at 13:15; Stop 06/04/16 at 13: 44; Status DC Heparin Sodium (Porcine) 2,600 unit 1X ONCE INT CAT Last administered on 13:10; Start 06/04/16 at 13:15; Stop 06/04/16 at 13:16; Status DC Lidocaine/ Epinephrine 20 ml 20 ml 1X ONCE IJ Last administered on 06/04/16 13 :11; Start 06/04/16 at 13:15; Stop 06/04/16 at 13:16; Status DC Sodium Chloride (Iv Sodium Chloride 0.9% 1000ml Bag) 1,000 ml @ 1,000 mls/hr Q1H PRN IV hypotension; Start 06/04/16 at 18:12; Stop 06/05/16 at 00:11; Status DC Sodium Chloride (Normal Saline Flush) 10 ml 1X PRN PRN IV AP catheter pack; Start 06/04/16 at 18:15; Stop 06/05/16 at 18:14 Sodium Chloride (Normal Saline Flush) 10 ml 1X PRN PRN IV CIRCUS ARTIST catheter pack; Start 06/04/16 at 18:15; Stop 06/05/16 at 18:14 Info (PHARMACY MONITORING -- do not chart) 1 each PRN DAILY PRN MC SEE COMMENTS ; Start 06/04/16 at 18:15; Status UNV Info (PHARMACY MONITORING -- do not chart) 1 each PRN DAILY PRN MC SEE COMMENTS ; Start 06/04/16 at 18:15 Albuterol/ Ipratropium 3 ml 3 ml 1X ONCE NEB Last administered on 06/05/16t 00 :29; Start 06/05/16 at 00:15; Stop 06/05/16 at 00:16; Status DC Sodium Chloride 1,000 ml @ 1,000 mls/hr Q1H PRN IV hypotension; Start 06/05/16 at 11:56; Stop 06/05/16 at 17:55 Albumin Human (Albuminar) 200 ml @ 200 mls/hr 1X PRN PRN IV Hypotension; Start 06/05/16 at 12:00; Stop 06/05/16 at 17:59 Acetaminophen (Tylenol) 500 mg 1X PRN PRN PO MILD PAIN / TEMP; Start 06/05/16 at 12:00; Stop 06/06/16 at 11:59 Diphenhydramine HCl (Benadryl) 25 mg 1X PRN PRN IV ITCHING; Start 06/05/16 at 12:00; Stop 06/06/16 at 11:59 Diphenhydramine HCl (Benadryl) 25 mg 1X PRN PRN IV ITCHING; Start 06/05/16 at 12:00; Stop 06/06/16 at 11:59 Sodium Chloride (Normal Saline Flush) 10 ml 1X PRN PRN IV AP catheter pack; Start 06/05/16 at 12:00; Stop 06/06/16 at 11:59 Sodium Chloride (Normal Saline Flush) 10 ml 1X PRN PRN IV CIRCUS ARTIST catheter pack; Start 06/05/16 at 12:00; Stop 06/06/16 at 11:59 Info (PHARMACY MONITORING -- do not chart) 1 each PRN DAILY PRN MC SEE COMMENTS ; Start 06/05/16 at 12:00; Status UNV Active Scripts Active Pantoprazole Sodium 40 Mg Tablet.dr 40 Mg PO DAILYAC 30 Days Reported Neomycin Sulfate 500 Mg Tablet 1 Tab PO BID Spironolactone 50 Mg Tablet 1 Tab PO DAILY Mag-Oxide (Magnesium Oxide) 400 Mg Tablet 2 Tab PO BID Vitamin D3 (Cholecalciferol (Vitamin D3)) 400 Unit Tablet 400 Unit PO BID Fish Oil Conc 1,000 mg Softgel ([place]-3/Dha/Epa/Fish Oil) 1,000 Mg Capsule 3, 000 Mg PO DAILY Multiple Vitamin (Multivitamin With Minerals) 1 Each Tablet 1 Each PO Corzide 40-5 Tablet (Nadolol/Bendroflumethiazide) 1 Each Tablet 0.5 Tab PO DAILY Coenzyme Q10 (Ubidecarenone) 100 Mg Capsule 100 Mg PO DAILY Calcium (Calcium Carbonate) 600 Mg Tablet 600 Mg PO BID Vitals/I & O Vital Sign - Last 24 Hours 06/04/16 06/04/16 06/04/16 06/04/16 13:44 15:36 19:00 19:25 Temp 97.3 95.7 97.3 95.7 Pulse 75 102 Resp 16 20 B/P 125/70 125/72 Pulse Ox 93 90 97 O2 Delivery Room Air Room Air Room Air Room Air 06/04/16 06/04/16 06/05/16 06/05/16 20:00 23:00 00:31 07:00 Temp 97.3 96.9 97.3 96.9 Pulse 83 100 Resp 18 18 B/P 148/75 131/81 Pulse Ox 92 95 93 O2 Delivery Room Air Room Air Room Air Room Air O2 Flow Rate 2.0 06/05/16 06/05/16 06/05/16 07:48 11:00 11:53 Temp 95.9 95.9 Pulse 98 Resp 18 B/P 127/72 Pulse Ox 94 91 O2 Delivery Room Air Room Air Room Air Intake and Output 06/04/16 06/04/16 06/05/16 15:00 23:00 07:00 Intake Total 0 ml Output Total 300 ml Balance 0 ml -300 ml ALOK JACKMAN MD Jun 05, 2016 13:33
[2016-06-05] MEDS: ACETAMINOPHEN 325 MG TABLET. PO PRN (17:40)
[2016-06-05 19:17] LABS: HEP B SURFACE ABDY Non Reactive (.)
[2016-06-05] MEDS: HYDROCODONE/APAP 5/325MG TABLET. PO PRN (20:39)
[2016-06-06 03:00] VITALS: BP 144/82
[2016-06-06 05:53] LABS: ALBUMIN 1.9 g/dL (3.4-5.0); CALCIUM 8.2 mg/dL (8.5-10.1); CREATININE 1.7 mg/dL (0.6-1.0); GFR 29.5; PHOSPHORUS 2.2 mg/dL (2.6-4.7); POTASSIUM 3.5 mmol/L (3.5-5.1)
[2016-06-06] MEDS ORDERED: MAGNESIUM SULFATE 2GM 50 ML IV ONE (06:45)
[2016-06-06 06:53] LABS: BASO % 0 % (0-3); EOS % 3 % (0-3); HEMATOCRIT 23.4 % (36.0-47.0); LYMPH # 1.4 x10^3/uL (1.0-4.8); LYMPH % 21 % (24-48); MEAN CORPUSCULAR HEMOGLOBIN 32 pg (25-35); MEAN CORPUSCULAR HGB CONC 34 g/dL (31-37); MEAN CORPUSCULAR VOLUME 95 fL (79-100); MONO % 15 % (0-9); NEUT % 60 % (31-73); PLATELET COUNT 46 x10^3/uL (140-400); RED BLOOD COUNT 2.46 x10^6/uL (3.50-5.40); RED CELL DISTRIBUTION WIDTH 19.4 % (11.5-14.5); WHITE BLOOD COUNT 6.8 x10^3/uL (4.0-11.0)
[2016-06-06] MEDS: IPRATRPIUM/ALBUTEROL 0.5/2.5MG 3 ML NEBU. NEB SCH ×4 (07:16→20:13)
[2016-06-06 07:20] VITALS: BP 147/72
[2016-06-06] MEDS: PANTOPRAZOLE 40 MG TABLET. PO SCH (07:56)
[2016-06-06] MEDS: LACTULOSE 20 GM/30 ML SOLUTION. PO SCH ×2 (08:58→20:34)
[2016-06-06] MEDS: RIFAXIMIN 550 MG TABLET PO SCH ×2 (08:58→20:34)
[2016-06-06] MEDS: MAGNESIUM OXIDE 400 MG TABLET PO SCH (08:58)
[2016-06-06 10:25] VITALS: BP 118/71
--- NOTE | 2016-06-06 12:30 | PDOC ---
PROGRESS NOTES Subjective Subjective No new complaints. Objective Objective Vital Signs Date Time Temp Pulse Resp B/P Pulse Ox O2 Delivery O2 Flow Rate FiO2 06/06/16 10:55 91 Room Air 06/06/16 10:25 96.4 95 18 118/71 96.4 06/04/16 20:00 2.0 Intake and Output 06/06/16 07:00 Intake Total 1290 ml Output Total 1003 ml Balance 287 ml Intake Oral 940 ml Blood Product IV Normal Saline Flush 350 ml Output Urine Total 1000 ml Stool Total 3 ml # Voids 3 Physical Exam Physical Exam She is supine in bed and seems to be comfortable. Assessment Assessment Problems Medical Problems: (1) Altered mental status Status: Acute (2) Hyperammonemia Status: Acute Plan Plan of Care To get her up as tolerated and to SNF when medically stable. Comment Review of Relevant I have reviewed the following items amy (where applicable) has been applied. Labs Laboratory Tests Test 06/04/16 18:00 06/05/16 04:05 06/05/16 10:05 06/06/16 05:00 Hepatitis B Surface Antigen Negative (Negative) Hepatitis B Surface Antibody Non reactive (.) Hepatitis B Core IgM Antibody Negative (Negative) White Blood Count 8.0x10^3/uL (4.0-11.0) 6.8x10^3/uL (4.0-11.0) Red Blood Count 1.88x10^6/uL (3.50-5.40) 2.46x10^6/uL (3.50-5.40) Hemoglobin 6.8g/dL (12.0-15.5) 8.0g/dL (12.0-15.5) Hematocrit 19.3% (36.0-47.0) 23.4% (36.0-47.0) Mean Corpuscular Volume 103fL (79-100) 95fL (79-100) Mean Corpuscular Hemoglobin 36pg (25-35) 32pg (25-35) Mean Corpuscular Hemoglobin Concent 35g/dL (31-37) 34g/dL (31-37) Red Cell Distribution Width 19.6% (11.5-14.5) 19.4% (11.5-14.5) Platelet Count 88x10^3/uL (140-400) 46x10^3/uL (140-400) Neutrophils (%) (Auto) 67% (31-73) 60% (31-73) Lymphocytes (%) (Auto) 19% (24-48) 21% (24-48) Monocytes (%) (Auto) 13% (0-9) 15% (0-9) Eosinophils (%) (Auto) 1% (0-3) 3% (0-3) Basophils (%) (Auto) 0% (0-3) 0% (0-3) Neutrophils # (Auto) 5.4x10^3uL (1.8-7.7) 4.1x10^3uL (1.8-7.7) Lymphocytes # (Auto) 1.5x10^3/uL (1.0-4.8) 1.4x10^3/uL (1.0-4.8) Monocytes # (Auto) 1.1x10^3/uL (0.0-1.1) 1.0x10^3/uL (0.0-1.1) Eosinophils # (Auto) 0.1x10^3/uL (0.0-0.7) 0.2x10^3/uL (0.0-0.7) Basophils # (Auto) 0.0x10^3/uL (0.0-0.2) 0.0x10^3/uL (0.0-0.2) Sodium Level 140mmol/L (136-145) 139mmol/L (136-145) Potassium Level 3.6mmol/L (3.5-5.1) 3.5mmol/L (3.5-5.1) Chloride Level 103mmol/L (98-107) 101mmol/L (98-107) Carbon Dioxide Level 27mmol/L (21-32) 30mmol/L (21-32) Anion Gap 10 (6-14) 8 (6-14) Blood Urea Nitrogen 20mg/dL (7-20) 10mg/dL (7-20) Creatinine 2.1mg/dL (0.6-1.0) 1.7mg/dL (0.6-1.0) Estimated GFR (Cockcroft-Gault) 23.2 29.5 Glucose Level 105mg/dL (70-99) 90mg/dL (70-99) Calcium Level 8.6mg/dL (8.5-10.1) 8.2mg/dL (8.5-10.1) Phosphorus Level 3.1mg/dL (2.6-4.7) 2.2mg/dL (2.6-4.7) Magnesium Level 2.0mg/dL (1.8-2.4) 1.4mg/dL (1.8-2.4) Albumin 2.1g/dL (3.4-5.0) 1.9g/dL (3.4-5.0) Ammonia 33mcmol/L (11-34) Laboratory Tests Test 06/06/16 05:00 White Blood Count 6.8x10^3/uL (4.0-11.0) Red Blood Count 2.46x10^6/uL (3.50-5.40) Hemoglobin 8.0g/dL (12.0-15.5) Hematocrit 23.4% (36.0-47.0) Mean Corpuscular Volume 95fL (79-100) Mean Corpuscular Hemoglobin 32pg (25-35) Mean Corpuscular Hemoglobin Concent 34g/dL (31-37) Red Cell Distribution Width 19.4% (11.5-14.5) Platelet Count 46x10^3/uL (140-400) Neutrophils (%) (Auto) 60% (31-73) Lymphocytes (%) (Auto) 21% (24-48) Monocytes (%) (Auto) 15% (0-9) Eosinophils (%) (Auto) 3% (0-3) Basophils (%) (Auto) 0% (0-3) Neutrophils # (Auto) 4.1x10^3uL (1.8-7.7) Lymphocytes # (Auto) 1.4x10^3/uL (1.0-4.8) Monocytes # (Auto) 1.0x10^3/uL (0.0-1.1) Eosinophils # (Auto) 0.2x10^3/uL (0.0-0.7) Basophils # (Auto) 0.0x10^3/uL (0.0-0.2) Sodium Level 139mmol/L (136-145) Potassium Level 3.5mmol/L (3.5-5.1) Chloride Level 101mmol/L (98-107) Carbon Dioxide Level 30mmol/L (21-32) Anion Gap 8 (6-14) Blood Urea Nitrogen 10mg/dL (7-20) Creatinine 1.7mg/dL (0.6-1.0) Estimated GFR (Cockcroft-Gault) 29.5 Glucose Level 90mg/dL (70-99) Calcium Level 8.2mg/dL (8.5-10.1) Phosphorus Level 2.2mg/dL (2.6-4.7) Magnesium Level 1.4mg/dL (1.8-2.4) Albumin 1.9g/dL (3.4-5.0) Microbiology 05/28/16 Blood Culture - Final, Complete NO GROWTH AFTER 5 DAYS Medications Current Medications Sodium Chloride (Iv Sodium Chloride 0.9% 1000ml Bag) 1,000 ml @ 1,000 mls/hr 1X ONCE IV Last administered on 05/28/16 16:07; Start 05/28/16 at 15:45; Stop 05/28/16 at 16:44; Status DC Ondansetron HCl 4 mg 4 mg PRN Q8HRS PRN IV NAUSEA/VOMITING; Start 05/28/16 at 17 :15; Stop 05/29/16 at 09:22; Status DC Sodium Chloride (Iv Sodium Chloride 0.9% 1000ml Bag) 1,000 ml @ 125 mls/hr Q8H IV ; Start 05/28/16 at 17:07; Stop 05/28/16 at 18:38; Status DC Lactulose 20 gm 20 gm PRN BID PRN PO CONSTIPATION; Start 05/28/16 at 18:45; Stop 05/29/16 at 10:00; Status DC Sodium Chloride (Iv Sodium Chloride 0.9% 1000ml Bag) 1,000 ml @ 100 mls/hr Q10H IV Last administered on 06/01/16 01:26; Start 05/28/16 at 19:00; Stop at 15:33; Status DC Acetaminophen (Tylenol) 325 mg PRN Q6HRS PRN PO MILD PAIN / TEMP Last administered on 06/05/16 17:40; Start 05/28/16 at 19:00 Acetaminophen/ Hydrocodone Bitart (Lortab 5/325) 1 tab PRN Q6HRS PRN PO MODERATE TO SEVERE PAIN Last administered on 06/05/16 20:39; Start 05/28/16 at 19:00 Hydralazine HCl (Apresoline) 10 mg PRN Q4HRS PRN IVP ELEVATED BP, SEE COMMENTS ; Start 05/28/16 at 19:00 Ondansetron HCl (Zofran) 4 mg PRN Q8HRS PRN IV NAUSEA/VOMITING Last administered on 05/30/16 03:36; Start 05/28/16 at 19:00 Albuterol Sulfate (Ventolin Neb Soln) 2.5 mg PRN Q4HRS PRN NEB SHORTNESS OF BREATH; Start 05/28/16 at 19:00 Lactulose 20 gm BID PO Last administered on 05/30/16 08:29; Start 05/29/16 at 10 :00; Stop 05/30/16 at 14:43; Status DC Pantoprazole Sodium (Protonix) 40 mg DAILYAC PO Last administered on 06/06/16 07:56; Start 05/29/16 at 10:00 Lactulose 20 gm TID PO ; Start 05/31/16 at 09:00; Stop 05/31/16 at 09:00; Status DC Lactulose 20 gm TID PO Last administered on 05/31/16 08:33; Start 05/30/16 at 14 :45; Stop 05/31/16 at 09:45; Status DC Rifaximin (Xifaxan) 550 mg Q12HR PO Last administered on 06/06/16 08:58; Start 05/30/16 at 15:00 Lactulose 20 gm 20 gm [id number] PO Last administered on 05/31/16 14:59; Start at 14:00; Stop 06/02/16 at 10:11; Status DC Magnesium Sulfate/ Dextrose 50 ml @ 25 mls/hr PRN DAILY PRN IV for Mag < 1.7 on am labs; Start 06/01/16 at 15:30 Sodium Bicarbonate/ Sodium Chloride (Iv Sodium Chloride 0.45%) 1,075 ml @ 100 mls/hr [id number] IV Last administered on 06/02/16 11:51; Start 06/01/16 at 15:45; Stop 06/02/16 at 18:18; Status DC Potassium Chloride (Klor-Con) 40 meq 1X ONCE PO Last administered on 06/02/16 08:39; Start 06/02/16 at 09:00; Stop 06/02/16 at 09:01; Status DC Lactulose 20 gm PRN BID PRN PO CONSTIPATION; Start 06/03/16 at 09:00; Stop at 12:00; Status DC Lactulose 20 gm BID PO Last administered on 06/02/16 11:49; Start 06/02/16 at 12 :00; Stop 06/03/16 at 10:38; Status DC Methylprednisolone Acetate (Depo-Medrol 40mg Vial) 40 mg 1X ONCE IM Last administered on 06/02/16 16:46; Start 06/02/16 at 16:30; Stop 06/02/16 at 16:31; Status DC Bupivacaine HCl (Sensorcaine-Mpf 0.25%) 10 ml 1X ONCE IJ Last administered on 06/02/16 16:46; Start 06/02/16 at 16:30; Stop 06/02/16 at 16:31; Status DC Methylprednisolone Acetate 40 mg 40 mg 1X ONCE IM Last administered on 16:45; Start 06/02/16 at 16:45; Stop 06/02/16 at 16:46; Status DC Sodium Bicarbonate/ Potassium Chloride/Sodium Chloride (Iv Sodium Chloride 0.45% ) 1,095 ml @ 100 mls/hr [id number] IV Last administered on 06/02/16 21:05; Start 06/02/16 at 18:30; Stop 06/03/16 at 05:26; Status DC Potassium Chloride 40 meq 40 meq 1X PRN PRN PO if repeat K < 3.7; Start at 18:15; Stop 06/03/16 at 05:00; Status DC Sodium Bicarbonate 75 meq/Sodium Chloride 1,075 ml @ 100 mls/hr [id number] IV Last administered on 06/04/16 03:30; Start 06/03/16 at 06:00; Stop 06/04/16 at 11: 39; Status DC Magnesium Sulfate/ Dextrose (Magnesium Sulfate PREMIX 4GM) 100 ml @ 25 mls/hr 1X ONCE IV Last administered on 06/03/16 10:10; Start 06/03/16 at 09:00; Stop 06/03/16 at 12:59; Status DC Magnesium Oxide (Magnesium Oxide) 400 mg DAILY PO Last administered on 08:58; Start 06/03/16 at 09:00 Lidocaine/Sodium Bicarbonate (Buffered Lidocaine 1%) 20 ml STK-MED ONCE IJ ; Start 06/03/16 at 10:23; Stop 06/03/16 at 10:24; Status DC Midazolam HCl (Versed) 5 mg STK-MED ONCE .ROUTE ; Start 06/03/16 at 10:24; Stop 06/03/16 at 10:25; Status DC Fentanyl Citrate (Fentanyl 5ml Vial) 250 mcg STK-MED ONCE .ROUTE ; Start at 10:24; Stop 06/03/16 at 10:25; Status DC Lidocaine/Sodium Bicarbonate (Buffered Lidocaine 1%) 20 ml 1X ONCE IJ Last administered on 06/03/16 10:57; Start 06/03/16 at 10:45; Stop 06/03/16 at 10:46; Status DC Midazolam HCl (Versed) 3 mg 1X ONCE IV Last administered on 06/03/16 10:58; Start 06/03/16 at 10:45; Stop 06/03/16 at 10:46; Status DC Fentanyl Citrate (Fentanyl 5ml Vial) 150 mcg 1X ONCE IV Last administered on 10:58; Start 06/03/16 at 10:45; Stop 06/03/16 at 10:46; Status DC Lactulose 20 gm DAILY PO Last administered on 06/04/16 09:02; Start 06/04/16 at 09:00; Stop 06/04/16 at 12:32; Status DC Albuterol/ Ipratropium (Duoneb) 3 ml RTQID NEB Last administered on 06/06/16 10:55; Start 06/03/16 at 20:00 Alprazolam (Xanax) 0.25 mg PRN Q8HRS PRN PO ANXIETY / AGITATION Last administered on 06/04/16 21:05; Start 06/04/16 at 10:15 Haloperidol Lactate (Haldol) 0.5 mg PRN Q6HRS PRN IVP AGITATION, 2ND CHOICE; Start 06/04/16 at 10:15 Lactulose 20 gm BID PO Last administered on 06/06/16 08:58; Start 06/04/16 at 21:00 Midazolam HCl (Versed) 2 mg STK-MED ONCE .ROUTE ; Start 06/04/16 at 12:35; Stop 06/04/16 at 12:36; Status DC Fentanyl Citrate 100 mcg 100 mcg STK-MED ONCE .ROUTE ; Start 06/04/16 at 12:35; Stop 06/04/16 at 12:36; Status DC Cefazolin Sodium (Ancef 1gm Ivpb For Omni) 50 ml @ As Directed STK-MED ONCE IV ; Start 06/04/16 at 12:35; Stop 06/04/16 at 12:36; Status DC Heparin Sodium (Porcine) 10,000 unit STK-MED ONCE .ROUTE ; Start 06/04/16 at 12: 37; Stop 06/04/16 at 12:38; Status DC Lidocaine/ Epinephrine 20 ml 20 ml STK-MED ONCE .ROUTE ; Start 06/04/16 at 12:37 ; Stop 06/04/16 at 12:38; Status DC Heparin Sodium/ Sodium Chloride 500 ml @ As Directed STK-MED ONCE .ROUTE ; Start 06/04/16 at 12:37; Stop 06/04/16 at 12:38; Status DC Heparin Sodium/ Sodium Chloride 1,000 unit 1X ONCE IART Last administered on 13:09; Start 06/04/16 at 13:15; Stop 06/04/16 at 13:16; Status DC Midazolam HCl (Versed) 2 mg 1X ONCE IV Last administered on 06/04/16 13:12; Start 06/04/16 at 13:15; Stop 06/04/16 at 13:16; Status DC Fentanyl Citrate 100 mcg 100 mcg 1X ONCE IV Last administered on 06/04/16 13: 12; Start 06/04/16 at 13:15; Stop 06/04/16 at 13:16; Status DC Cefazolin Sodium (Ancef 1gm Ivpb For Omni) 50 ml @ 100 mls/hr 1X ONCE IV Last administered on 06/04/16 13:13; Start 06/04/16 at 13:15; Stop 06/04/16 at 13: 44; Status DC Heparin Sodium (Porcine) 2,600 unit 1X ONCE INT CAT Last administered on 13:10; Start 06/04/16 at 13:15; Stop 06/04/16 at 13:16; Status DC Lidocaine/ Epinephrine 20 ml 20 ml 1X ONCE IJ Last administered on 06/04/16 13 :11; Start 06/04/16 at 13:15; Stop 06/04/16 at 13:16; Status DC Sodium Chloride (Iv Sodium Chloride 0.9% 1000ml Bag) 1,000 ml @ 1,000 mls/hr Q1H PRN IV hypotension; Start 06/04/16 at 18:12; Stop 06/05/16 at 00:11; Status DC Sodium Chloride (Normal Saline Flush) 10 ml 1X PRN PRN IV AP catheter pack; Start 06/04/16 at 18:15; Stop 06/05/16 at 18:14; Status Cancel Sodium Chloride (Normal Saline Flush) 10 ml 1X PRN PRN IV JAVA LEAD catheter pack; Start 06/04/16 at 18:15; Stop 06/05/16 at 18:14; Status Cancel Info (PHARMACY MONITORING -- do not chart) 1 each PRN DAILY PRN MC SEE COMMENTS ; Start 06/04/16 at 18:15; Status UNV Info (PHARMACY MONITORING -- do not chart) 1 each PRN DAILY PRN MC SEE COMMENTS ; Start 06/04/16 at 18:15 Albuterol/ Ipratropium 3 ml 3 ml 1X ONCE NEB Last administered on 06/05/16 00 :29; Start 06/05/16 at 00:15; Stop 06/05/16 at 00:16; Status DC Sodium Chloride 1,000 ml @ 1,000 mls/hr Q1H PRN IV hypotension; Start 06/05/16 at 11:56; Stop 06/05/16 at 17:55; Status DC Albumin Human (Albuminar) 200 ml @ 200 mls/hr 1X PRN PRN IV Hypotension; Start 06/05/16 at 12:00; Stop 06/05/16 at 17:59; Status DC Acetaminophen (Tylenol) 500 mg 1X PRN PRN PO MILD PAIN / TEMP; Start 06/05/16 at 12:00; Stop 06/06/16 at 11:59; Status DC Diphenhydramine HCl (Benadryl) 25 mg 1X PRN PRN IV ITCHING; Start 06/05/16 at 12:00; Stop 06/06/16 at 11:59; Status DC Diphenhydramine HCl (Benadryl) 25 mg 1X PRN PRN IV ITCHING; Start 06/05/16 at 12:00; Stop 06/06/16 at 11:59; Status DC Sodium Chloride (Normal Saline Flush) 10 ml 1X PRN PRN IV AP catheter pack; Start 06/05/16 at 12:00; Stop 06/06/16 at 11:59; Status DC Sodium Chloride (Normal Saline Flush) 10 ml 1X PRN PRN IV JAVA LEAD catheter pack; Start 06/05/16 at 12:00; Stop 06/06/16 at 11:59; Status DC Info 1 each 1 each PRN DAILY PRN MC SEE COMMENTS; Start 06/05/16 at 12:00; Status UNV Magnesium Sulfate/ Dextrose (Magnesium Sulfate PREMIX 2GM) 50 ml @ 25 mls/hr 1X ONCE IV Last administered on 06/06/16t 07:56; Start 06/06/16 at 06:45; Stop 06/06/16 at 08:44; Status DC Active Scripts Active Pantoprazole Sodium 40 Mg Tablet.dr 40 Mg PO DAILYAC 30 Days Reported Neomycin Sulfate 500 Mg Tablet 1 Tab PO BID Spironolactone 50 Mg Tablet 1 Tab PO DAILY Mag-Oxide (Magnesium Oxide) 400 Mg Tablet 2 Tab PO BID Vitamin D3 (Cholecalciferol (Vitamin D3)) 400 Unit Tablet 400 Unit PO BID Fish Oil Conc 1,000 mg Softgel ([place]-3/Dha/Epa/Fish Oil) 1,000 Mg Capsule 3, 000 Mg PO DAILY Multiple Vitamin (Multivitamin With Minerals) 1 Each Tablet 1 Each PO Corzide 40-5 Tablet (Nadolol/Bendroflumethiazide) 1 Each Tablet 0.5 Tab PO DAILY Coenzyme Q10 (Ubidecarenone) 100 Mg Capsule 100 Mg PO DAILY Calcium (Calcium Carbonate) 600 Mg Tablet 600 Mg PO BID Vitals/I & O Vital Sign - Last 24 Hours 06/05/16 06/05/16 06/05/16 06/05/16 13:29 13:44 13:50 15:00 Temp 97.1 96.7 96.9 97.1 96.7 96.9 Pulse 99 85 85 Resp 20 16 16 B/P 122/76 128/80 129/82 O2 Delivery Off Unit 06/05/16 06/05/16 06/05/16 06/05/16 19:00 19:28 20:39 20:48 Temp 97.5 97.5 Pulse 89 Resp 18 18 B/P 140/71 Pulse Ox 95 97 O2 Delivery Room Air Room Air Room Air Room Air 06/05/16 06/05/16 06/06/16 06/06/16 21:40 23:00 03:00 07:17 Temp 98.0 98.2 98.0 98.2 Pulse 94 92 Resp 18 18 18 B/P 130/76 144/82 Pulse Ox 99 93 91 O2 Delivery Room Air Room Air Room Air Room Air 06/06/16 06/06/16 06/06/16 06/06/16 07:20 07:45 10:25 10:55 Temp 97.5 96.4 97.5 96.4 Pulse 95 95 Resp 18 18 B/P 147/72 118/71 Pulse Ox 94 93 91 O2 Delivery Room Air Room Air Room Air Room Air Intake and Output 06/05/16 06/05/16 06/06/16 15:00 23:00 07:00 Intake Total 720 ml 470 ml 100 ml Output Total 3 ml 1000 ml Balance 720 ml 467 ml -900 ml CESARIO ABARCA MD Jun 06, 2016 12:30
--- NOTE | 2016-06-06 13:37 | PDOC ---
PROGRESS NOTES Chief Complaint Chief Complaint Altered mental status, hyperammonemia 1. Encephalopathy, possible metabolic, hepatic. 2. Acute kidney injury, ATN,myeloma? 3. Metabolic acidosis. 4. Thrombocytopenia 2/2 cirrhosis likely 5. Anemia, chronic. 6. Hyperbilirubinemia. 7. Alcoholism. 8. high INR 2/2 CIrrhosis likely 9, LEFT thigh pain, 2/2 OA? 10. hypomagnesemia plan 1. fu with renal, onco 2. fu with labs ordered for onco 3. dced bicarb 4. PTOT SW, will do HH as per PT, but SNF is better cont rifaxin, cont lactulose to keep BM 2-3 times a day. UNFOrtunately, pt always refuse sometimes. check left hip xr, dr. James consulted, got left knee steroid injection, better now BM bx 06/03 as per onco, result pending replete Mag HD start 06/04 as per renal haldol, xanax prn 1u PRBC 06/05 History of Present Illness History of Present Illness t refused lactulose from time to time. ammonia level up and down related to BM or now. altho i explained to her many times has to keep BM 2-3 times perday Cr better with HD from 06/04, 06/05 knee pain better post steroid injection more confusion 06/04, better 06/05 STILL moderate confusion, aaox2 to person and place only, calm Vitals Vitals Vital Signs Date Time Temp Pulse Resp B/P Pulse Ox O2 Delivery O2 Flow Rate FiO2 06/06/16 10:55 91 Room Air 06/06/16 10:25 96.4 95 18 118/71 96.4 Physical Exam Physical Exam aaox2 to person and place only General: Alert, Other Heart: Regular rate Lungs: Clear Abdomen: Soft, No tenderness, Other (no ascites) Extremities: No edema Skin: Other (no bruising) Labs LABS Laboratory Tests Test 06/06/16 05:00 White Blood Count 6.8x10^3/uL (4.0-11.0) Red Blood Count 2.46x10^6/uL (3.50-5.40) Hemoglobin 8.0g/dL (12.0-15.5) Hematocrit 23.4% (36.0-47.0) Mean Corpuscular Volume 95fL (79-100) Mean Corpuscular Hemoglobin 32pg (25-35) Mean Corpuscular Hemoglobin Concent 34g/dL (31-37) Red Cell Distribution Width 19.4% (11.5-14.5) Platelet Count 46x10^3/uL (140-400) Neutrophils (%) (Auto) 60% (31-73) Lymphocytes (%) (Auto) 21% (24-48) Monocytes (%) (Auto) 15% (0-9) Eosinophils (%) (Auto) 3% (0-3) Basophils (%) (Auto) 0% (0-3) Neutrophils # (Auto) 4.1x10^3uL (1.8-7.7) Lymphocytes # (Auto) 1.4x10^3/uL (1.0-4.8) Monocytes # (Auto) 1.0x10^3/uL (0.0-1.1) Eosinophils # (Auto) 0.2x10^3/uL (0.0-0.7) Basophils # (Auto) 0.0x10^3/uL (0.0-0.2) Sodium Level 139mmol/L (136-145) Potassium Level 3.5mmol/L (3.5-5.1) Chloride Level 101mmol/L (98-107) Carbon Dioxide Level 30mmol/L (21-32) Anion Gap 8 (6-14) Blood Urea Nitrogen 10mg/dL (7-20) Creatinine 1.7mg/dL (0.6-1.0) Estimated GFR (Cockcroft-Gault) 29.5 Glucose Level 90mg/dL (70-99) Calcium Level 8.2mg/dL (8.5-10.1) Phosphorus Level 2.2mg/dL (2.6-4.7) Magnesium Level 1.4mg/dL (1.8-2.4) Albumin 1.9g/dL (3.4-5.0) Review of Systems Review of Systems no fever, chills, sob or chest pain Assessment and Plan Assessmemt and Plan Problems Medical Problems: (1) Altered mental status Status: Acute (2) Hyperammonemia Status: Acute Problems: Comment Review of Relevant I have reviewed the following items amy (where applicable) has been applied. Labs Laboratory Tests Test 06/04/16 18:00 06/05/16 04:05 06/05/16 10:05 06/06/16 05:00 Hepatitis B Surface Antigen Negative (Negative) Hepatitis B Surface Antibody Non reactive (.) Hepatitis B Core IgM Antibody Negative (Negative) White Blood Count 8.0x10^3/uL (4.0-11.0) 6.8x10^3/uL (4.0-11.0) Red Blood Count 1.88x10^6/uL (3.50-5.40) 2.46x10^6/uL (3.50-5.40) Hemoglobin 6.8g/dL (12.0-15.5) 8.0g/dL (12.0-15.5) Hematocrit 19.3% (36.0-47.0) 23.4% (36.0-47.0) Mean Corpuscular Volume 103fL (79-100) 95fL (79-100) Mean Corpuscular Hemoglobin 36pg (25-35) 32pg (25-35) Mean Corpuscular Hemoglobin Concent 35g/dL (31-37) 34g/dL (31-37) Red Cell Distribution Width 19.6% (11.5-14.5) 19.4% (11.5-14.5) Platelet Count 88x10^3/uL (140-400) 46x10^3/uL (140-400) Neutrophils (%) (Auto) 67% (31-73) 60% (31-73) Lymphocytes (%) (Auto) 19% (24-48) 21% (24-48) Monocytes (%) (Auto) 13% (0-9) 15% (0-9) Eosinophils (%) (Auto) 1% (0-3) 3% (0-3) Basophils (%) (Auto) 0% (0-3) 0% (0-3) Neutrophils # (Auto) 5.4x10^3uL (1.8-7.7) 4.1x10^3uL (1.8-7.7) Lymphocytes # (Auto) 1.5x10^3/uL (1.0-4.8) 1.4x10^3/uL (1.0-4.8) Monocytes # (Auto) 1.1x10^3/uL (0.0-1.1) 1.0x10^3/uL (0.0-1.1) Eosinophils # (Auto) 0.1x10^3/uL (0.0-0.7) 0.2x10^3/uL (0.0-0.7) Basophils # (Auto) 0.0x10^3/uL (0.0-0.2) 0.0x10^3/uL (0.0-0.2) Sodium Level 140mmol/L (136-145) 139mmol/L (136-145) Potassium Level 3.6mmol/L (3.5-5.1) 3.5mmol/L (3.5-5.1) Chloride Level 103mmol/L (98-107) 101mmol/L (98-107) Carbon Dioxide Level 27mmol/L (21-32) 30mmol/L (21-32) Anion Gap 10 (6-14) 8 (6-14) Blood Urea Nitrogen 20mg/dL (7-20) 10mg/dL (7-20) Creatinine 2.1mg/dL (0.6-1.0) 1.7mg/dL (0.6-1.0) Estimated GFR (Cockcroft-Gault) 23.2 29.5 Glucose Level 105mg/dL (70-99) 90mg/dL (70-99) Calcium Level 8.6mg/dL (8.5-10.1) 8.2mg/dL (8.5-10.1) Phosphorus Level 3.1mg/dL (2.6-4.7) 2.2mg/dL (2.6-4.7) Magnesium Level 2.0mg/dL (1.8-2.4) 1.4mg/dL (1.8-2.4) Albumin 2.1g/dL (3.4-5.0) 1.9g/dL (3.4-5.0) Ammonia 33mcmol/L (11-34) Laboratory Tests Test 06/06/16 05:00 White Blood Count 6.8x10^3/uL (4.0-11.0) Red Blood Count 2.46x10^6/uL (3.50-5.40) Hemoglobin 8.0g/dL (12.0-15.5) Hematocrit 23.4% (36.0-47.0) Mean Corpuscular Volume 95fL (79-100) Mean Corpuscular Hemoglobin 32pg (25-35) Mean Corpuscular Hemoglobin Concent 34g/dL (31-37) Red Cell Distribution Width 19.4% (11.5-14.5) Platelet Count 46x10^3/uL (140-400) Neutrophils (%) (Auto) 60% (31-73) Lymphocytes (%) (Auto) 21% (24-48) Monocytes (%) (Auto) 15% (0-9) Eosinophils (%) (Auto) 3% (0-3) Basophils (%) (Auto) 0% (0-3) Neutrophils # (Auto) 4.1x10^3uL (1.8-7.7) Lymphocytes # (Auto) 1.4x10^3/uL (1.0-4.8) Monocytes # (Auto) 1.0x10^3/uL (0.0-1.1) Eosinophils # (Auto) 0.2x10^3/uL (0.0-0.7) Basophils # (Auto) 0.0x10^3/uL (0.0-0.2) Sodium Level 139mmol/L (136-145) Potassium Level 3.5mmol/L (3.5-5.1) Chloride Level 101mmol/L (98-107) Carbon Dioxide Level 30mmol/L (21-32) Anion Gap 8 (6-14) Blood Urea Nitrogen 10mg/dL (7-20) Creatinine 1.7mg/dL (0.6-1.0) Estimated GFR (Cockcroft-Gault) 29.5 Glucose Level 90mg/dL (70-99) Calcium Level 8.2mg/dL (8.5-10.1) Phosphorus Level 2.2mg/dL (2.6-4.7) Magnesium Level 1.4mg/dL (1.8-2.4) Albumin 1.9g/dL (3.4-5.0) Microbiology 05/28/16 Blood Culture - Final, Complete NO GROWTH AFTER 5 DAYS Medications Current Medications Sodium Chloride (Iv Sodium Chloride 0.9% 1000ml Bag) 1,000 ml @ 1,000 mls/hr 1X ONCE IV Last administered on 05/28/16 16:07; Start 05/28/16 at 15:45; Stop 05/28/16 at 16:44; Status DC Ondansetron HCl 4 mg 4 mg PRN Q8HRS PRN IV NAUSEA/VOMITING; Start 05/28/16 at 17 :15; Stop 05/29/16 at 09:22; Status DC Sodium Chloride (Iv Sodium Chloride 0.9% 1000ml Bag) 1,000 ml @ 125 mls/hr Q8H IV ; Start 05/28/16 at 17:07; Stop 05/28/16 at 18:38; Status DC Lactulose 20 gm 20 gm PRN BID PRN PO CONSTIPATION; Start 05/28/16 at 18:45; Stop 05/29/16 at 10:00; Status DC Sodium Chloride (Iv Sodium Chloride 0.9% 1000ml Bag) 1,000 ml @ 100 mls/hr Q10H IV Last administered on 06/01/16 01:26; Start 05/28/16 at 19:00; Stop at 15:33; Status DC Acetaminophen (Tylenol) 325 mg PRN Q6HRS PRN PO MILD PAIN / TEMP Last administered on 06/05/16 17:40; Start 05/28/16 at 19:00 Acetaminophen/ Hydrocodone Bitart (Lortab 5/325) 1 tab PRN Q6HRS PRN PO MODERATE TO SEVERE PAIN Last administered on 06/05/16 20:39; Start 05/28/16 at 19:00 Hydralazine HCl (Apresoline) 10 mg PRN Q4HRS PRN IVP ELEVATED BP, SEE COMMENTS ; Start 05/28/16 at 19:00 Ondansetron HCl (Zofran) 4 mg PRN Q8HRS PRN IV NAUSEA/VOMITING Last administered on 05/30/16 03:36; Start 05/28/16 at 19:00 Albuterol Sulfate (Ventolin Neb Soln) 2.5 mg PRN Q4HRS PRN NEB SHORTNESS OF BREATH; Start 05/28/16 at 19:00 Lactulose 20 gm BID PO Last administered on 05/30/16 08:29; Start 05/29/16 at 10 :00; Stop 05/30/16 at 14:43; Status DC Pantoprazole Sodium (Protonix) 40 mg DAILYAC PO Last administered on 06/06/16 07:56; Start 05/29/16 at 10:00 Lactulose 20 gm TID PO ; Start 05/31/16 at 09:00; Stop 05/31/16 at 09:00; Status DC Lactulose 20 gm TID PO Last administered on 05/31/16 08:33; Start 05/30/16 at 14 :45; Stop 05/31/16 at 09:45; Status DC Rifaximin (Xifaxan) 550 mg Q12HR PO Last administered on 06/06/16 08:58; Start 05/30/16 at 15:00 Lactulose 20 gm 20 gm [id number] PO Last administered on 05/31/16 14:59; Start at 14:00; Stop 06/02/16 at 10:11; Status DC Magnesium Sulfate/ Dextrose 50 ml @ 25 mls/hr PRN DAILY PRN IV for Mag < 1.7 on am labs; Start 06/01/16 at 15:30 Sodium Bicarbonate/ Sodium Chloride (Iv Sodium Chloride 0.45%) 1,075 ml @ 100 mls/hr [id number] IV Last administered on 06/02/16 11:51; Start 06/01/16 at 15:45; Stop 06/02/16 at 18:18; Status DC Potassium Chloride (Klor-Con) 40 meq 1X ONCE PO Last administered on 06/02/16 08:39; Start 06/02/16 at 09:00; Stop 06/02/16 at 09:01; Status DC Lactulose 20 gm PRN BID PRN PO CONSTIPATION; Start 06/03/16 at 09:00; Stop at 12:00; Status DC Lactulose 20 gm BID PO Last administered on 06/02/16 11:49; Start 06/02/16 at 12 :00; Stop 06/03/16 at 10:38; Status DC Methylprednisolone Acetate (Depo-Medrol 40mg Vial) 40 mg 1X ONCE IM Last administered on 06/02/16 16:46; Start 06/02/16 at 16:30; Stop 06/02/16 at 16:31; Status DC Bupivacaine HCl (Sensorcaine-Mpf 0.25%) 10 ml 1X ONCE IJ Last administered on 06/02/16 16:46; Start 06/02/16 at 16:30; Stop 06/02/16 at 16:31; Status DC Methylprednisolone Acetate 40 mg 40 mg 1X ONCE IM Last administered on 16:45; Start 06/02/16 at 16:45; Stop 06/02/16 at 16:46; Status DC Sodium Bicarbonate/ Potassium Chloride/Sodium Chloride (Iv Sodium Chloride 0.45% ) 1,095 ml @ 100 mls/hr [id number] IV Last administered on 06/02/16 21:05; Start 06/02/16 at 18:30; Stop 06/03/16 at 05:26; Status DC Potassium Chloride 40 meq 40 meq 1X PRN PRN PO if repeat K < 3.7; Start at 18:15; Stop 06/03/16 at 05:00; Status DC Sodium Bicarbonate 75 meq/Sodium Chloride 1,075 ml @ 100 mls/hr [id number] IV Last administered on 06/04/16 03:30; Start 06/03/16 at 06:00; Stop 06/04/16 at 11: 39; Status DC Magnesium Sulfate/ Dextrose (Magnesium Sulfate PREMIX 4GM) 100 ml @ 25 mls/hr 1X ONCE IV Last administered on 06/03/16 10:10; Start 06/03/16 at 09:00; Stop 06/03/16 at 12:59; Status DC Magnesium Oxide (Magnesium Oxide) 400 mg DAILY PO Last administered on 08:58; Start 06/03/16 at 09:00 Lidocaine/Sodium Bicarbonate (Buffered Lidocaine 1%) 20 ml STK-MED ONCE IJ ; Start 06/03/16 at 10:23; Stop 06/03/16 at 10:24; Status DC Midazolam HCl (Versed) 5 mg STK-MED ONCE .ROUTE ; Start 06/03/16 at 10:24; Stop 06/03/16 at 10:25; Status DC Fentanyl Citrate (Fentanyl 5ml Vial) 250 mcg STK-MED ONCE .ROUTE ; Start at 10:24; Stop 06/03/16 at 10:25; Status DC Lidocaine/Sodium Bicarbonate (Buffered Lidocaine 1%) 20 ml 1X ONCE IJ Last administered on 06/03/16 10:57; Start 06/03/16 at 10:45; Stop 06/03/16 at 10:46; Status DC Midazolam HCl (Versed) 3 mg 1X ONCE IV Last administered on 06/03/16 10:58; Start 06/03/16 at 10:45; Stop 06/03/16 at 10:46; Status DC Fentanyl Citrate (Fentanyl 5ml Vial) 150 mcg 1X ONCE IV Last administered on 10:58; Start 06/03/16 at 10:45; Stop 06/03/16 at 10:46; Status DC Lactulose 20 gm DAILY PO Last administered on 06/04/16 09:02; Start 06/04/16 at 09:00; Stop 06/04/16 at 12:32; Status DC Albuterol/ Ipratropium (Duoneb) 3 ml RTQID NEB Last administered on 06/06/16 10:55; Start 06/03/16 at 20:00 Alprazolam (Xanax) 0.25 mg PRN Q8HRS PRN PO ANXIETY / AGITATION Last administered on 06/04/16 21:05; Start 06/04/16 at 10:15 Haloperidol Lactate (Haldol) 0.5 mg PRN Q6HRS PRN IVP AGITATION, 2ND CHOICE; Start 06/04/16 at 10:15 Lactulose 20 gm BID PO Last administered on 06/06/16 08:58; Start 06/04/16 at 21:00 Midazolam HCl (Versed) 2 mg STK-MED ONCE .ROUTE ; Start 06/04/16 at 12:35; Stop 06/04/16 at 12:36; Status DC Fentanyl Citrate 100 mcg 100 mcg STK-MED ONCE .ROUTE ; Start 06/04/16 at 12:35; Stop 06/04/16 at 12:36; Status DC Cefazolin Sodium (Ancef 1gm Ivpb For Omni) 50 ml @ As Directed STK-MED ONCE IV ; Start 06/04/16 at 12:35; Stop 06/04/16 at 12:36; Status DC Heparin Sodium (Porcine) 10,000 unit STK-MED ONCE .ROUTE ; Start 06/04/16 at 12: 37; Stop 06/04/16 at 12:38; Status DC Lidocaine/ Epinephrine 20 ml 20 ml STK-MED ONCE .ROUTE ; Start 06/04/16 at 12:37 ; Stop 06/04/16 at 12:38; Status DC Heparin Sodium/ Sodium Chloride 500 ml @ As Directed STK-MED ONCE .ROUTE ; Start 06/04/16 at 12:37; Stop 06/04/16 at 12:38; Status DC Heparin Sodium/ Sodium Chloride 1,000 unit 1X ONCE IART Last administered on 13:09; Start 06/04/16 at 13:15; Stop 06/04/16 at 13:16; Status DC Midazolam HCl (Versed) 2 mg 1X ONCE IV Last administered on 06/04/16 13:12; Start 06/04/16 at 13:15; Stop 06/04/16 at 13:16; Status DC Fentanyl Citrate 100 mcg 100 mcg 1X ONCE IV Last administered on 06/04/16 13: 12; Start 06/04/16 at 13:15; Stop 06/04/16 at 13:16; Status DC Cefazolin Sodium (Ancef 1gm Ivpb For Omni) 50 ml @ 100 mls/hr 1X ONCE IV Last administered on 06/04/16 13:13; Start 06/04/16 at 13:15; Stop 06/04/16 at 13: 44; Status DC Heparin Sodium (Porcine) 2,600 unit 1X ONCE INT CAT Last administered on 13:10; Start 06/04/16 at 13:15; Stop 06/04/16 at 13:16; Status DC Lidocaine/ Epinephrine 20 ml 20 ml 1X ONCE IJ Last administered on 06/04/16 13 :11; Start 06/04/16 at 13:15; Stop 06/04/16 at 13:16; Status DC Sodium Chloride (Iv Sodium Chloride 0.9% 1000ml Bag) 1,000 ml @ 1,000 mls/hr Q1H PRN IV hypotension; Start 06/04/16 at 18:12; Stop 06/05/16 at 00:11; Status DC Sodium Chloride (Normal Saline Flush) 10 ml 1X PRN PRN IV AP catheter pack; Start 06/04/16 at 18:15; Stop 06/05/16 at 18:14; Status Cancel Sodium Chloride (Normal Saline Flush) 10 ml 1X PRN PRN IV CHARRER catheter pack; Start 06/04/16 at 18:15; Stop 06/05/16 at 18:14; Status Cancel Info (PHARMACY MONITORING -- do not chart) 1 each PRN DAILY PRN MC SEE COMMENTS ; Start 06/04/16 at 18:15; Status UNV Info (PHARMACY MONITORING -- do not chart) 1 each PRN DAILY PRN MC SEE COMMENTS ; Start 06/04/16 at 18:15 Albuterol/ Ipratropium 3 ml 3 ml 1X ONCE NEB Last administered on 06/05/16t 00 :29; Start 06/05/16 at 00:15; Stop 06/05/16 at 00:16; Status DC Sodium Chloride 1,000 ml @ 1,000 mls/hr Q1H PRN IV hypotension; Start 06/05/16 at 11:56; Stop 06/05/16 at 17:55; Status DC Albumin Human (Albuminar) 200 ml @ 200 mls/hr 1X PRN PRN IV Hypotension; Start 06/05/16 at 12:00; Stop 06/05/16 at 17:59; Status DC Acetaminophen (Tylenol) 500 mg 1X PRN PRN PO MILD PAIN / TEMP; Start 06/05/16 at 12:00; Stop 06/06/16 at 11:59; Status DC Diphenhydramine HCl (Benadryl) 25 mg 1X PRN PRN IV ITCHING; Start 06/05/16 at 12:00; Stop 06/06/16 at 11:59; Status DC Diphenhydramine HCl (Benadryl) 25 mg 1X PRN PRN IV ITCHING; Start 06/05/16 at 12:00; Stop 06/06/16 at 11:59; Status DC Sodium Chloride (Normal Saline Flush) 10 ml 1X PRN PRN IV AP catheter pack; Start 06/05/16 at 12:00; Stop 06/06/16 at 11:59; Status DC Sodium Chloride (Normal Saline Flush) 10 ml 1X PRN PRN IV CHARRER catheter pack; Start 06/05/16 at 12:00; Stop 06/06/16 at 11:59; Status DC Info 1 each 1 each PRN DAILY PRN MC SEE COMMENTS; Start 06/05/16 at 12:00; Status UNV Magnesium Sulfate/ Dextrose (Magnesium Sulfate PREMIX 2GM) 50 ml @ 25 mls/hr 1X ONCE IV Last administered on 06/06/16t 07:56; Start 06/06/16 at 06:45; Stop 06/06/16 at 08:44; Status DC Active Scripts Active Pantoprazole Sodium 40 Mg Tablet.dr 40 Mg PO DAILYAC 30 Days Reported Neomycin Sulfate 500 Mg Tablet 1 Tab PO BID Spironolactone 50 Mg Tablet 1 Tab PO DAILY Mag-Oxide (Magnesium Oxide) 400 Mg Tablet 2 Tab PO BID Vitamin D3 (Cholecalciferol (Vitamin D3)) 400 Unit Tablet 400 Unit PO BID Fish Oil Conc 1,000 mg Softgel (Bison-3/Dha/Epa/Fish Oil) 1,000 Mg Capsule 3, 000 Mg PO DAILY Multiple Vitamin (Multivitamin With Minerals) 1 Each Tablet 1 Each PO Corzide 40-5 Tablet (Nadolol/Bendroflumethiazide) 1 Each Tablet 0.5 Tab PO DAILY Coenzyme Q10 (Ubidecarenone) 100 Mg Capsule 100 Mg PO DAILY Calcium (Calcium Carbonate) 600 Mg Tablet 600 Mg PO BID Vitals/I & O Vital Sign - Last 24 Hours 06/05/16 06/05/16 06/05/16 06/05/16 13:44 13:50 15:00 19:00 Temp 96.7 96.9 97.5 96.7 96.9 97.5 Pulse 85 85 89 Resp 16 16 18 B/P 128/80 129/82 140/71 Pulse Ox 95 O2 Delivery Off Unit Room Air 06/05/16 06/05/16 06/05/16 06/05/16 19:28 20:39 20:48 21:40 Resp 18 18 Pulse Ox 97 O2 Delivery Room Air Room Air Room Air Room Air 06/05/16 06/06/16 06/06/16 06/06/16 23:00 03:00 07:17 07:20 Temp 98.0 98.2 97.5 98.0 98.2 97.5 Pulse 94 92 95 Resp 18 18 18 B/P 130/76 144/82 147/72 Pulse Ox 99 93 91 94 O2 Delivery Room Air Room Air Room Air Room Air 06/06/16 06/06/16 06/06/16 07:45 10:25 10:55 Temp 96.4 96.4 Pulse 95 Resp 18 B/P 118/71 Pulse Ox 93 91 O2 Delivery Room Air Room Air Room Air Intake and Output 06/05/16 06/05/16 06/06/16 15:00 23:00 07:00 Intake Total 720 ml 470 ml 100 ml Output Total 3 ml 1000 ml Balance 720 ml 467 ml -900 ml ALOK JACKMAN MD Jun 06, 2016 13:36
[2016-06-06 14:40] VITALS: BP 133/77
[2016-06-06] MEDS: HYDROCODONE/APAP 5/325MG TABLET. PO PRN (16:04)
[2016-06-06 19:00] VITALS: BP 130/80
--- NOTE | 2016-06-06 22:54 | PDOC ---
Provider Note Provider Note RENAL F/U : SENAIT S : Doing better. Weak and frail. No active CP. O : VSS Afebrile. Alert. Neck : Supple Lungs : Non labored. Decreased bases. CVS : RRR Abd : Benign appearance. Ext : No CCE 1 + edema. Neuro : Grossly intact. Labs reviewed. ARF/ATN CKD PROTEINURIA ANEMIA Doing OK refuded HD Awaits myeloma w.u. Follow I/Os Supportive care. Pina Sapp M.D. PINA SAPP MD Jun 06, 2016 22:54
[2016-06-06 23:00] VITALS: BP 128/80
[2016-06-07 03:30] VITALS: BP 146/84
[2016-06-07 05:14] LABS: ALBUMIN 2.1 g/dL (3.4-5.0); CALCIUM 8.9 mg/dL (8.5-10.1); CREATININE 2.4 mg/dL (0.6-1.0); GFR 19.8; PHOSPHORUS 2.9 mg/dL (2.6-4.7); POTASSIUM 3.3 mmol/L (3.5-5.1)
[2016-06-07 07:15] VITALS: BP 131/77
[2016-06-07] MEDS: IPRATRPIUM/ALBUTEROL 0.5/2.5MG 3 ML NEBU. NEB SCH ×4 (07:44→19:35)
[2016-06-07] MEDS ORDERED: POTASSIUM CHLORIDE 20 MEQ TABLET.ER. PO ONE (08:45)
[2016-06-07] MEDS: LACTULOSE 20 GM/30 ML SOLUTION. PO SCH ×2 (09:00→20:29)
[2016-06-07 09:01] LABS: BASO % 0 % (0-3); EOS % 5 % (0-3); HEMATOCRIT 24.7 % (36.0-47.0); HEMOGLOBIN 8.2 g/dL (12.0-15.5); LYMPH # 1.7 x10^3/uL (1.0-4.8); LYMPH % 23 % (24-48); MEAN CORPUSCULAR HEMOGLOBIN 32 pg (25-35); MEAN CORPUSCULAR HGB CONC 33 g/dL (31-37); MEAN CORPUSCULAR VOLUME 97 fL (79-100); MONO % 14 % (0-9); NEUT % 58 % (31-73); PLATELET COUNT 45 x10^3/uL (140-400); RED BLOOD COUNT 2.55 x10^6/uL (3.50-5.40); RED CELL DISTRIBUTION WIDTH 19.6 % (11.5-14.5); WHITE BLOOD COUNT 7.2 x10^3/uL (4.0-11.0)
[2016-06-07] MEDS: MAGNESIUM OXIDE 400 MG TABLET PO SCH (09:30)
[2016-06-07] MEDS: PANTOPRAZOLE 40 MG TABLET. PO SCH (09:30)
[2016-06-07] MEDS: RIFAXIMIN 550 MG TABLET PO SCH ×2 (09:30→20:29)
[2016-06-07 10:30] VITALS: BP 144/80
--- NOTE | 2016-06-07 12:35 | PDOC ---
PROGRESS NOTES Chief Complaint Chief Complaint Altered mental status, hyperammonemia 1. Encephalopathy, possible metabolic, hepatic. 2. Acute kidney injury, ATN,myeloma? 3. Metabolic acidosis. 4. Thrombocytopenia 2/2 cirrhosis likely 5. Anemia, chronic. 6. Hyperbilirubinemia. 7. Alcoholism. 8. high INR 2/2 CIrrhosis likely 9, LEFT thigh pain, 2/2 OA? 10. hypomagnesemia plan 1. fu with renal, onco 2. fu with labs ordered for onco 3. dced bicarb 4. PTOT SW, will do HH as per PT, but SNF is better cont rifaxin, cont lactulose to keep BM 2-3 times a day. UNFOrtunately, pt always refuse sometimes. check left hip xr, dr. James consulted, got left knee steroid injection, better now BM bx 06/03 as per onco, result pending replete Mag , K HD start 06/04 as per renal haldol, xanax prn 1u PRBC 06/05 fu with onco for bone marrow bx, fu with renal for HD. need to take lactulose, monitor ammonia. need SNF for encephalopathy. History of Present Illness History of Present Illness t refused lactulose from time to time. ammonia level up and down related to BM or now. altho i explained to her many times has to keep BM 2-3 times perday Cr better with HD from 06/04, 06/05 knee pain better post steroid injection more confusion 06/04, better 06/05 STILL moderate confusion, aaox2 to person and place only, calm Vitals Vitals Vital Signs Date Time Temp Pulse Resp B/P Pulse Ox O2 Delivery O2 Flow Rate FiO2 06/07/16 11:26 Room Air 06/07/16 10:30 97.5 94 18 144/80 92 97.5 Physical Exam Physical Exam aaox2 to person and place only General: Alert, Other Heart: Regular rate Lungs: Clear Abdomen: Soft, No tenderness, Other (no ascites) Extremities: No edema Skin: Other (no bruising) Labs LABS Laboratory Tests Test 06/07/16 04:13 06/07/16 09:10 White Blood Count 7.2x10^3/uL (4.0-11.0) Red Blood Count 2.55x10^6/uL (3.50-5.40) Hemoglobin 8.2g/dL (12.0-15.5) Hematocrit 24.7% (36.0-47.0) Mean Corpuscular Volume 97fL (79-100) Mean Corpuscular Hemoglobin 32pg (25-35) Mean Corpuscular Hemoglobin Concent 33g/dL (31-37) Red Cell Distribution Width 19.6% (11.5-14.5) Platelet Count 45x10^3/uL (140-400) Neutrophils (%) (Auto) 58% (31-73) Lymphocytes (%) (Auto) 23% (24-48) Monocytes (%) (Auto) 14% (0-9) Eosinophils (%) (Auto) 5% (0-3) Basophils (%) (Auto) 0% (0-3) Neutrophils # (Auto) 4.2x10^3uL (1.8-7.7) Lymphocytes # (Auto) 1.7x10^3/uL (1.0-4.8) Monocytes # (Auto) 1.0x10^3/uL (0.0-1.1) Eosinophils # (Auto) 0.3x10^3/uL (0.0-0.7) Basophils # (Auto) 0.0x10^3/uL (0.0-0.2) Sodium Level 136mmol/L (136-145) Potassium Level 3.3mmol/L (3.5-5.1) Chloride Level 100mmol/L (98-107) Carbon Dioxide Level 27mmol/L (21-32) Anion Gap 9 (6-14) Blood Urea Nitrogen 13mg/dL (7-20) Creatinine 2.4mg/dL (0.6-1.0) Estimated GFR (Cockcroft-Gault) 19.8 Glucose Level 93mg/dL (70-99) Calcium Level 8.9mg/dL (8.5-10.1) Phosphorus Level 2.9mg/dL (2.6-4.7) Magnesium Level 2.3mg/dL (1.8-2.4) Albumin 2.1g/dL (3.4-5.0) Ammonia 53mcmol/L (11-34) Review of Systems Review of Systems no fever, chills, sob or chest pain Assessment and Plan Assessmemt and Plan Problems Medical Problems: (1) Altered mental status Status: Acute (2) Hyperammonemia Status: Acute Problems: Comment Review of Relevant I have reviewed the following items amy (where applicable) has been applied. Labs Laboratory Tests Test 06/06/16 05:00 06/07/16 04:13 06/07/16 09:10 White Blood Count 6.8x10^3/uL (4.0-11.0) 7.2x10^3/uL (4.0-11.0) Red Blood Count 2.46x10^6/uL (3.50-5.40) 2.55x10^6/uL (3.50-5.40) Hemoglobin 8.0g/dL (12.0-15.5) 8.2g/dL (12.0-15.5) Hematocrit 23.4% (36.0-47.0) 24.7% (36.0-47.0) Mean Corpuscular Volume 95fL (79-100) 97fL (79-100) Mean Corpuscular Hemoglobin 32pg (25-35) 32pg (25-35) Mean Corpuscular Hemoglobin Concent 34g/dL (31-37) 33g/dL (31-37) Red Cell Distribution Width 19.4% (11.5-14.5) 19.6% (11.5-14.5) Platelet Count 46x10^3/uL (140-400) 45x10^3/uL (140-400) Neutrophils (%) (Auto) 60% (31-73) 58% (31-73) Lymphocytes (%) (Auto) 21% (24-48) 23% (24-48) Monocytes (%) (Auto) 15% (0-9) 14% (0-9) Eosinophils (%) (Auto) 3% (0-3) 5% (0-3) Basophils (%) (Auto) 0% (0-3) 0% (0-3) Neutrophils # (Auto) 4.1x10^3uL (1.8-7.7) 4.2x10^3uL (1.8-7.7) Lymphocytes # (Auto) 1.4x10^3/uL (1.0-4.8) 1.7x10^3/uL (1.0-4.8) Monocytes # (Auto) 1.0x10^3/uL (0.0-1.1) 1.0x10^3/uL (0.0-1.1) Eosinophils # (Auto) 0.2x10^3/uL (0.0-0.7) 0.3x10^3/uL (0.0-0.7) Basophils # (Auto) 0.0x10^3/uL (0.0-0.2) 0.0x10^3/uL (0.0-0.2) Sodium Level 139mmol/L (136-145) 136mmol/L (136-145) Potassium Level 3.5mmol/L (3.5-5.1) 3.3mmol/L (3.5-5.1) Chloride Level 101mmol/L (98-107) 100mmol/L (98-107) Carbon Dioxide Level 30mmol/L (21-32) 27mmol/L (21-32) Anion Gap 8 (6-14) 9 (6-14) Blood Urea Nitrogen 10mg/dL (7-20) 13mg/dL (7-20) Creatinine 1.7mg/dL (0.6-1.0) 2.4mg/dL (0.6-1.0) Estimated GFR (Cockcroft-Gault) 29.5 19.8 Glucose Level 90mg/dL (70-99) 93mg/dL (70-99) Calcium Level 8.2mg/dL (8.5-10.1) 8.9mg/dL (8.5-10.1) Phosphorus Level 2.2mg/dL (2.6-4.7) 2.9mg/dL (2.6-4.7) Magnesium Level 1.4mg/dL (1.8-2.4) 2.3mg/dL (1.8-2.4) Albumin 1.9g/dL (3.4-5.0) 2.1g/dL (3.4-5.0) Ammonia 53mcmol/L (11-34) Laboratory Tests Test 06/07/16 04:13 06/07/16 09:10 White Blood Count 7.2x10^3/uL (4.0-11.0) Red Blood Count 2.55x10^6/uL (3.50-5.40) Hemoglobin 8.2g/dL (12.0-15.5) Hematocrit 24.7% (36.0-47.0) Mean Corpuscular Volume 97fL (79-100) Mean Corpuscular Hemoglobin 32pg (25-35) Mean Corpuscular Hemoglobin Concent 33g/dL (31-37) Red Cell Distribution Width 19.6% (11.5-14.5) Platelet Count 45x10^3/uL (140-400) Neutrophils (%) (Auto) 58% (31-73) Lymphocytes (%) (Auto) 23% (24-48) Monocytes (%) (Auto) 14% (0-9) Eosinophils (%) (Auto) 5% (0-3) Basophils (%) (Auto) 0% (0-3) Neutrophils # (Auto) 4.2x10^3uL (1.8-7.7) Lymphocytes # (Auto) 1.7x10^3/uL (1.0-4.8) Monocytes # (Auto) 1.0x10^3/uL (0.0-1.1) Eosinophils # (Auto) 0.3x10^3/uL (0.0-0.7) Basophils # (Auto) 0.0x10^3/uL (0.0-0.2) Sodium Level 136mmol/L (136-145) Potassium Level 3.3mmol/L (3.5-5.1) Chloride Level 100mmol/L (98-107) Carbon Dioxide Level 27mmol/L (21-32) Anion Gap 9 (6-14) Blood Urea Nitrogen 13mg/dL (7-20) Creatinine 2.4mg/dL (0.6-1.0) Estimated GFR (Cockcroft-Gault) 19.8 Glucose Level 93mg/dL (70-99) Calcium Level 8.9mg/dL (8.5-10.1) Phosphorus Level 2.9mg/dL (2.6-4.7) Magnesium Level 2.3mg/dL (1.8-2.4) Albumin 2.1g/dL (3.4-5.0) Ammonia 53mcmol/L (11-34) Microbiology 05/28/16 Blood Culture - Final, Complete NO GROWTH AFTER 5 DAYS Medications Current Medications Sodium Chloride (Iv Sodium Chloride 0.9% 1000ml Bag) 1,000 ml @ 1,000 mls/hr 1X ONCE IV Last administered on 05/28/16 16:07; Start 05/28/16 at 15:45; Stop 05/28/16 at 16:44; Status DC Ondansetron HCl 4 mg 4 mg PRN Q8HRS PRN IV NAUSEA/VOMITING; Start 05/28/16 at 17 :15; Stop 05/29/16 at 09:22; Status DC Sodium Chloride (Iv Sodium Chloride 0.9% 1000ml Bag) 1,000 ml @ 125 mls/hr Q8H IV ; Start 05/28/16 at 17:07; Stop 05/28/16 at 18:38; Status DC Lactulose 20 gm 20 gm PRN BID PRN PO CONSTIPATION; Start 05/28/16 at 18:45; Stop 05/29/16 at 10:00; Status DC Sodium Chloride (Iv Sodium Chloride 0.9% 1000ml Bag) 1,000 ml @ 100 mls/hr Q10H IV Last administered on 06/01/16 01:26; Start 05/28/16 at 19:00; Stop at 15:33; Status DC Acetaminophen (Tylenol) 325 mg PRN Q6HRS PRN PO MILD PAIN / TEMP Last administered on 06/05/16 17:40; Start 05/28/16 at 19:00 Acetaminophen/ Hydrocodone Bitart (Lortab 5/325) 1 tab PRN Q6HRS PRN PO MODERATE TO SEVERE PAIN Last administered on 06/06/16 16:04; Start 05/28/16 at 19:00 Hydralazine HCl (Apresoline) 10 mg PRN Q4HRS PRN IVP ELEVATED BP, SEE COMMENTS ; Start 05/28/16 at 19:00 Ondansetron HCl (Zofran) 4 mg PRN Q8HRS PRN IV NAUSEA/VOMITING Last administered on 05/30/16 03:36; Start 05/28/16 at 19:00 Albuterol Sulfate (Ventolin Neb Soln) 2.5 mg PRN Q4HRS PRN NEB SHORTNESS OF BREATH; Start 05/28/16 at 19:00 Lactulose 20 gm BID PO Last administered on 05/30/16 08:29; Start 05/29/16 at 10 :00; Stop 05/30/16 at 14:43; Status DC Pantoprazole Sodium (Protonix) 40 mg DAILYAC PO Last administered on 06/07/16 09:30; Start 05/29/16 at 10:00 Lactulose 20 gm TID PO ; Start 05/31/16 at 09:00; Stop 05/31/16 at 09:00; Status DC Lactulose 20 gm TID PO Last administered on 05/31/16 08:33; Start 05/30/16 at 14 :45; Stop 05/31/16 at 09:45; Status DC Rifaximin (Xifaxan) 550 mg Q12HR PO Last administered on 06/07/16 09:30; Start 05/30/16 at 15:00 Lactulose 20 gm 20 gm [id number] PO Last administered on 05/31/16 14:59; Start at 14:00; Stop 06/02/16 at 10:11; Status DC Magnesium Sulfate/ Dextrose 50 ml @ 25 mls/hr PRN DAILY PRN IV for Mag < 1.7 on am labs; Start 06/01/16 at 15:30 Sodium Bicarbonate/ Sodium Chloride (Iv Sodium Chloride 0.45%) 1,075 ml @ 100 mls/hr [id number] IV Last administered on 06/02/16 11:51; Start 06/01/16 at 15:45; Stop 06/02/16 at 18:18; Status DC Potassium Chloride (Klor-Con) 40 meq 1X ONCE PO Last administered on 06/02/16 08:39; Start 06/02/16 at 09:00; Stop 06/02/16 at 09:01; Status DC Lactulose 20 gm PRN BID PRN PO CONSTIPATION; Start 06/03/16 at 09:00; Stop at 12:00; Status DC Lactulose 20 gm BID PO Last administered on 06/02/16 11:49; Start 06/02/16 at 12 :00; Stop 06/03/16 at 10:38; Status DC Methylprednisolone Acetate (Depo-Medrol 40mg Vial) 40 mg 1X ONCE IM Last administered on 06/02/16 16:46; Start 06/02/16 at 16:30; Stop 06/02/16 at 16:31; Status DC Bupivacaine HCl (Sensorcaine-Mpf 0.25%) 10 ml 1X ONCE IJ Last administered on 06/02/16 16:46; Start 06/02/16 at 16:30; Stop 06/02/16 at 16:31; Status DC Methylprednisolone Acetate 40 mg 40 mg 1X ONCE IM Last administered on 16:45; Start 06/02/16 at 16:45; Stop 06/02/16 at 16:46; Status DC Sodium Bicarbonate/ Potassium Chloride/Sodium Chloride (Iv Sodium Chloride 0.45% ) 1,095 ml @ 100 mls/hr [id number] IV Last administered on 06/02/16 21:05; Start 06/02/16 at 18:30; Stop 06/03/16 at 05:26; Status DC Potassium Chloride 40 meq 40 meq 1X PRN PRN PO if repeat K < 3.7; Start at 18:15; Stop 06/03/16 at 05:00; Status DC Sodium Bicarbonate 75 meq/Sodium Chloride 1,075 ml @ 100 mls/hr [id number] IV Last administered on 06/04/16 03:30; Start 06/03/16 at 06:00; Stop 06/04/16 at 11: 39; Status DC Magnesium Sulfate/ Dextrose (Magnesium Sulfate PREMIX 4GM) 100 ml @ 25 mls/hr 1X ONCE IV Last administered on 06/03/16 10:10; Start 06/03/16 at 09:00; Stop 06/03/16 at 12:59; Status DC Magnesium Oxide (Magnesium Oxide) 400 mg DAILY PO Last administered on 09:30; Start 06/03/16 at 09:00 Lidocaine/Sodium Bicarbonate (Buffered Lidocaine 1%) 20 ml STK-MED ONCE IJ ; Start 06/03/16 at 10:23; Stop 06/03/16 at 10:24; Status DC Midazolam HCl (Versed) 5 mg STK-MED ONCE .ROUTE ; Start 06/03/16 at 10:24; Stop 06/03/16 at 10:25; Status DC Fentanyl Citrate (Fentanyl 5ml Vial) 250 mcg STK-MED ONCE .ROUTE ; Start at 10:24; Stop 06/03/16 at 10:25; Status DC Lidocaine/Sodium Bicarbonate (Buffered Lidocaine 1%) 20 ml 1X ONCE IJ Last administered on 06/03/16 10:57; Start 06/03/16 at 10:45; Stop 06/03/16 at 10:46; Status DC Midazolam HCl (Versed) 3 mg 1X ONCE IV Last administered on 06/03/16 10:58; Start 06/03/16 at 10:45; Stop 06/03/16 at 10:46; Status DC Fentanyl Citrate (Fentanyl 5ml Vial) 150 mcg 1X ONCE IV Last administered on 10:58; Start 06/03/16 at 10:45; Stop 06/03/16 at 10:46; Status DC Lactulose 20 gm DAILY PO Last administered on 06/04/16 09:02; Start 06/04/16 at 09:00; Stop 06/04/16 at 12:32; Status DC Albuterol/ Ipratropium (Duoneb) 3 ml RTQID NEB Last administered on 06/07/16 11:26; Start 06/03/16 at 20:00 Alprazolam (Xanax) 0.25 mg PRN Q8HRS PRN PO ANXIETY / AGITATION Last administered on 06/04/16 21:05; Start 06/04/16 at 10:15 Haloperidol Lactate (Haldol) 0.5 mg PRN Q6HRS PRN IVP AGITATION, 2ND CHOICE; Start 06/04/16 at 10:15 Lactulose 20 gm BID PO Last administered on 06/06/16 20:34; Start 06/04/16 at 21:00 Midazolam HCl (Versed) 2 mg STK-MED ONCE .ROUTE ; Start 06/04/16 at 12:35; Stop 06/04/16 at 12:36; Status DC Fentanyl Citrate 100 mcg 100 mcg STK-MED ONCE .ROUTE ; Start 06/04/16 at 12:35; Stop 06/04/16 at 12:36; Status DC Cefazolin Sodium (Ancef 1gm Ivpb For Omni) 50 ml @ As Directed STK-MED ONCE IV ; Start 06/04/16 at 12:35; Stop 06/04/16 at 12:36; Status DC Heparin Sodium (Porcine) 10,000 unit STK-MED ONCE .ROUTE ; Start 06/04/16 at 12: 37; Stop 06/04/16 at 12:38; Status DC Lidocaine/ Epinephrine 20 ml 20 ml STK-MED ONCE .ROUTE ; Start 06/04/16 at 12:37 ; Stop 06/04/16 at 12:38; Status DC Heparin Sodium/ Sodium Chloride 500 ml @ As Directed STK-MED ONCE .ROUTE ; Start 06/04/16 at 12:37; Stop 06/04/16 at 12:38; Status DC Heparin Sodium/ Sodium Chloride 1,000 unit 1X ONCE IART Last administered on 13:09; Start 06/04/16 at 13:15; Stop 06/04/16 at 13:16; Status DC Midazolam HCl (Versed) 2 mg 1X ONCE IV Last administered on 06/04/16 13:12; Start 06/04/16 at 13:15; Stop 06/04/16 at 13:16; Status DC Fentanyl Citrate 100 mcg 100 mcg 1X ONCE IV Last administered on 06/04/16 13: 12; Start 06/04/16 at 13:15; Stop 06/04/16 at 13:16; Status DC Cefazolin Sodium (Ancef 1gm Ivpb For Omni) 50 ml @ 100 mls/hr 1X ONCE IV Last administered on 06/04/16 13:13; Start 06/04/16 at 13:15; Stop 06/04/16 at 13: 44; Status DC Heparin Sodium (Porcine) 2,600 unit 1X ONCE INT CAT Last administered on 13:10; Start 06/04/16 at 13:15; Stop 06/04/16 at 13:16; Status DC Lidocaine/ Epinephrine 20 ml 20 ml 1X ONCE IJ Last administered on 06/04/16 13 :11; Start 06/04/16 at 13:15; Stop 06/04/16 at 13:16; Status DC Sodium Chloride (Iv Sodium Chloride 0.9% 1000ml Bag) 1,000 ml @ 1,000 mls/hr Q1H PRN IV hypotension; Start 06/04/16 at 18:12; Stop 06/05/16 at 00:11; Status DC Sodium Chloride (Normal Saline Flush) 10 ml 1X PRN PRN IV AP catheter pack; Start 06/04/16 at 18:15; Stop 06/05/16 at 18:14; Status Cancel Sodium Chloride (Normal Saline Flush) 10 ml 1X PRN PRN IV [employer]IST catheter pack; Start 06/04/16 at 18:15; Stop 06/05/16 at 18:14; Status Cancel Info (PHARMACY MONITORING -- do not chart) 1 each PRN DAILY PRN MC SEE COMMENTS ; Start 06/04/16 at 18:15; Status UNV Info (PHARMACY MONITORING -- do not chart) 1 each PRN DAILY PRN MC SEE COMMENTS ; Start 06/04/16 at 18:15 Albuterol/ Ipratropium 3 ml 3 ml 1X ONCE NEB Last administered on 06/05/16t 00 :29; Start 06/05/16 at 00:15; Stop 06/05/16 at 00:16; Status DC Sodium Chloride 1,000 ml @ 1,000 mls/hr Q1H PRN IV hypotension; Start 06/05/16 at 11:56; Stop 06/05/16 at 17:55; Status DC Albumin Human (Albuminar) 200 ml @ 200 mls/hr 1X PRN PRN IV Hypotension; Start 06/05/16 at 12:00; Stop 06/05/16 at 17:59; Status DC Acetaminophen (Tylenol) 500 mg 1X PRN PRN PO MILD PAIN / TEMP; Start 06/05/16 at 12:00; Stop 06/06/16 at 11:59; Status DC Diphenhydramine HCl (Benadryl) 25 mg 1X PRN PRN IV ITCHING; Start 06/05/16 at 12:00; Stop 06/06/16 at 11:59; Status DC Diphenhydramine HCl (Benadryl) 25 mg 1X PRN PRN IV ITCHING; Start 06/05/16 at 12:00; Stop 06/06/16 at 11:59; Status DC Sodium Chloride (Normal Saline Flush) 10 ml 1X PRN PRN IV AP catheter pack; Start 06/05/16 at 12:00; Stop 06/06/16 at 11:59; Status DC Sodium Chloride (Normal Saline Flush) 10 ml 1X PRN PRN IV WOOD TECHNOLOGIST catheter pack; Start 06/05/16 at 12:00; Stop 06/06/16 at 11:59; Status DC Info 1 each 1 each PRN DAILY PRN MC SEE COMMENTS; Start 06/05/16 at 12:00; Status UNV Magnesium Sulfate/ Dextrose (Magnesium Sulfate PREMIX 2GM) 50 ml @ 25 mls/hr 1X ONCE IV Last administered on 06/06/16 07:56; Start 06/06/16 at 06:45; Stop 06/06/16 at 08:44; Status DC Potassium Chloride (Klor-Con) 40 meq 1X ONCE PO Last administered on 09:31; Start 06/07/16 at 08:45; Stop 06/07/16 at 08:46; Status DC Active Scripts Active Pantoprazole Sodium 40 Mg Tablet.dr 40 Mg PO DAILYAC 30 Days Reported Neomycin Sulfate 500 Mg Tablet 1 Tab PO BID Spironolactone 50 Mg Tablet 1 Tab PO DAILY Mag-Oxide (Magnesium Oxide) 400 Mg Tablet 2 Tab PO BID Vitamin D3 (Cholecalciferol (Vitamin D3)) 400 Unit Tablet 400 Unit PO BID Fish Oil Conc 1,000 mg Softgel ([place]-3/Dha/Epa/Fish Oil) 1,000 Mg Capsule 3, 000 Mg PO DAILY Multiple Vitamin (Multivitamin With Minerals) 1 Each Tablet 1 Each PO Corzide 40-5 Tablet (Nadolol/Bendroflumethiazide) 1 Each Tablet 0.5 Tab PO DAILY Coenzyme Q10 (Ubidecarenone) 100 Mg Capsule 100 Mg PO DAILY Calcium (Calcium Carbonate) 600 Mg Tablet 600 Mg PO BID Vitals/I & O Vital Sign - Last 24 Hours 06/06/16 06/06/16 06/06/16 06/06/16 14:40 15:28 16:04 17:30 Temp 97.5 97.5 Pulse 91 Resp 18 B/P 133/77 Pulse Ox 93 93 O2 Delivery Room Air Room Air Room Air Room Air 06/06/16 06/06/16 06/06/16 06/06/16 19:00 19:10 20:13 23:00 Temp 97.7 97.6 97.7 97.6 Pulse 104 103 Resp 20 20 B/P 130/80 128/80 Pulse Ox 91 92 91 O2 Delivery Room Air Room Air Room Air Room Air 06/07/16 06/07/16 06/07/16/12/17 03:30 07:15 07:44 08:01 Temp 98.1 97.9 98.1 97.9 Pulse 99 88 Resp 20 18 B/P 146/84 131/77 Pulse Ox 91 92 94 O2 Delivery Room Air Room Air Room Air Room Air 06/07/16 06/07/16 10:30 11:26 Temp 97.5 97.5 Pulse 94 Resp 18 B/P 144/80 Pulse Ox 92 O2 Delivery Room Air Room Air Intake and Output 06/06/16 06/06/16 06/07/16 15:00 23:00 07:00 Intake Total 480 ml 300 ml 720 ml Output Total 100 ml Balance 380 ml 300 ml 720 ml ALOK JACKMAN MD Jun 07, 2016 12:35
[2016-06-07 14:35] VITALS: BP 126/81
--- NOTE | 2016-06-07 17:18 | PDOC ---
Provider Note Provider Note RENAL F/U : SENAIT S : Doing better. Weak and frail. No active CP. O : VSS Afebrile. Alert. Neck : Supple Lungs : Non labored. Decreased bases. CVS : RRR Abd : Benign appearance. Ext : No CCE 1 + edema. Neuro : Grossly intact. Labs reviewed. ARF/ATN HYPOKALMIA : Replace Po PROTEINURIA ANEMIA Doing OK HD in am? May need renal biopsy Follow I/Os Supportive care. PINA SAPP MD Jun 07, 2016 17:18
[2016-06-07 19:00] VITALS: BP 147/83
[2016-06-07] MEDS: HYDROCODONE/APAP 5/325MG TABLET. PO PRN (20:30)
[2016-06-07 22:58] VITALS: BP 136/84
[2016-06-08 02:34] VITALS: BP 131/79
[2016-06-08 04:47] LABS: INR 1.4 (0.8-1.1); PROTHROMBIN TIME PATIENT 16.4 SEC (11.7-14.0)
[2016-06-08 05:05] LABS: ALBUMIN 2.1 g/dL (3.4-5.0); CALCIUM 8.9 mg/dL (8.5-10.1); CREATININE 2.9 mg/dL (0.6-1.0); PHOSPHORUS 3.2 mg/dL (2.6-4.7); POTASSIUM 4.1 mmol/L (3.5-5.1)
[2016-06-08 05:39] LABS: BASO % 1 % (0-3); EOS % 5 % (0-3); HEMOGLOBIN 8.4 g/dL (12.0-15.5); LYMPH # 1.3 x10^3/uL (1.0-4.8); LYMPH % 19 % (24-48); MEAN CORPUSCULAR HEMOGLOBIN 32 pg (25-35); MEAN CORPUSCULAR HGB CONC 34 g/dL (31-37); MEAN CORPUSCULAR VOLUME 96 fL (79-100); MONO % 17 % (0-9); NEUT % 59 % (31-73); PLATELET COUNT 50 x10^3/uL (140-400); RED CELL DISTRIBUTION WIDTH 19.2 % (11.5-14.5)
[2016-06-08 07:00] VITALS: BP 145/81
[2016-06-08] MEDS: MAGNESIUM OXIDE 400 MG TABLET PO SCH (07:26)
[2016-06-08] MEDS: RIFAXIMIN 550 MG TABLET PO SCH ×2 (07:26→20:37)
[2016-06-08] MEDS: PANTOPRAZOLE 40 MG TABLET. PO SCH (07:26)
[2016-06-08] MEDS: IPRATRPIUM/ALBUTEROL 0.5/2.5MG 3 ML NEBU. NEB SCH ×4 (07:49→20:27)
[2016-06-08] MEDS: LACTULOSE 20 GM/30 ML SOLUTION. PO SCH ×2 (08:19→19:04)
--- NOTE | 2016-06-08 09:43 | PDOC ---
Subjective: Subjective: Onc f/u- Cytopenias, cold agglutinins Pt eager to DC, frustrated she is still here. Mentation ok. Denies pain, SOB, CP , abd pain. Objective: Vital Signs: Vital Signs Date Time Temp Pulse Resp B/P Pulse Ox O2 Delivery O2 Flow Rate FiO2 06/08/16 08:00 Room Air 2.0 06/08/16 07:52 97 06/08/16 07:00 98.4 88 145/81 98.4 06/08/16 02:34 19 Physical Exam: Extremities: No edema General: Alert, Oriented X3, Cooperative, No acute distress Lungs: Other (no resp distress) Psych/Mental Status: Mental status NL, Mood NL Skin: No rashes Labs/Imaging: Plt dropped rom 90- 123- 50's now Hgb stable s/p transfusion 06/05 Renal stable D/w Dr. Arias bmbx- no increased plasma cells but cold agglutinins everywhere, no acute leuk Assessment/Plan A/P: 71 yo F with: 1. Anemia- stable s/p transfusion 06/05. Bmbx neg for increase plasma cells, acute leuk, but lots of agglutinins. 2. Thrombocytopenia, plt now near 50 from 90 on admit 3. Acute vs chronic kidney disease- renal following. Renal bx today. 4. Ho alcohol abuse up to admission per daughter; pt denies. Alcohol found on table prior to admit. 5. 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 Steroids not particularly helpful with cold agglutination. - Pt eager to DC. I can f/u as outpt as well but daughter states pt unlikely to come. D/W Dr. Ortiz, [place], and her daughter/ DPOA. NAVEED SEPULVEDA DO Jun 08, 2016 09:43
--- NOTE | 2016-06-08 09:50 | PDOC ---
Subjective: Subjective: Doing okay. Stooling w/ lactulose. Objective: Objective: Per RN - still confused, 1 BM today so far, has taken last two doses of lactulose. Renal biopsy today. Vital Signs: Vital Signs Date Time Temp Pulse Resp B/P Pulse Ox O2 Delivery O2 Flow Rate FiO2 06/08/16 08:00 Room Air 2.0 06/08/16 07:52 97 06/08/16 07:00 98.4 88 145/81 98.4 06/08/16 02:34 19 Labs: Laboratory Tests Test 06/08/16 04:05 White Blood Count 7.0x10^3/uL Red Blood Count 2.60x10^6/uL Hemoglobin 8.4g/dL Hematocrit 25.0% Mean Corpuscular Volume 96fL Mean Corpuscular Hemoglobin 32pg Mean Corpuscular Hemoglobin Concent 34g/dL Red Cell Distribution Width 19.2% Platelet Count 50x10^3/uL Neutrophils (%) (Auto) 59% Lymphocytes (%) (Auto) 19% Monocytes (%) (Auto) 17% Eosinophils (%) (Auto) 5% Basophils (%) (Auto) 1% Neutrophils # (Auto) 4.2x10^3uL Lymphocytes # (Auto) 1.3x10^3/uL Monocytes # (Auto) 1.2x10^3/uL Eosinophils # (Auto) 0.3x10^3/uL Basophils # (Auto) 0.0x10^3/uL Prothrombin Time 16.4SEC Prothromb Time International Ratio 1.4 Sodium Level 135mmol/L Potassium Level 4.1mmol/L Chloride Level 100mmol/L Carbon Dioxide Level 25mmol/L Anion Gap 10 Blood Urea Nitrogen 15mg/dL Creatinine 2.9mg/dL Estimated GFR (Cockcroft-Gault) 16.0 Glucose Level 107mg/dL Calcium Level 8.9mg/dL Phosphorus Level 3.2mg/dL Ammonia 36mcmol/L Albumin 2.1g/dL PE: GEN: NAD LUNGS: CTAB HEART: RRR ABD: NABS, S/ND/NT NEURO/PSYCH: probably a little confused A/P: Alcoholic cirrhosis -hyperammonemia, encephalopathy -CT in 01/2016 showed nodular liver (cirrhosis), Doppler 05/2016 unrevealing, AFP WNL -on Xifaxin BID, lactulose dosing varies (sometimes refuses) as do ammonia levels (36 today) Anemia/thrombocytopenia -heme/onc following, s/p bone marrow bx 06/03, to have renal bx today, additional labs ordered (Mycoplasma, [place]) along w/ chest CT (screen for lymphoma) -Hgb stable -EGD 12/2015: [place] II anatomy, normal esophagus, and nonerosive gastritis - on PO PPI QD KVNG/CKD -has been dialyzed this admission -- Continue lactulose for 2-3 BMs daily, continue Xifaxan. IVY BETH Jun 08, 2016 09:50
--- NOTE | 2016-06-08 10:35 | PDOC ---
PROGRESS NOTES Subjective Subjective She had no new complaints. Objective Objective Vital Signs Date Time Temp Pulse Resp B/P Pulse Ox O2 Delivery O2 Flow Rate FiO2 06/08/16 08:00 Room Air 2.0 06/08/16 07:52 97 06/08/16 07:00 98.4 88 145/81 98.4 06/08/16 02:34 19 Intake and Output 06/08/16 07:00 Intake Total 930 ml Balance 930 ml Intake Oral 930 ml # Voids 4 # Bowel Movements 4 Physical Exam Physical Exam She is supine in bed and awake and getting up with roller walker under supervision. Assessment Assessment Problems Medical Problems: (1) Altered mental status Status: Acute (2) Hyperammonemia Status: Acute Plan Plan of Care To SNF or assisted living facility when medically stable. Comment Review of Relevant I have reviewed the following items amy (where applicable) has been applied. Labs Laboratory Tests Test 06/07/16 04:13 06/07/16 09:10 06/08/16 04:05 White Blood Count 7.2x10^3/uL (4.0-11.0) 7.0x10^3/uL (4.0-11.0) Red Blood Count 2.55x10^6/uL (3.50-5.40) 2.60x10^6/uL (3.50-5.40) Hemoglobin 8.2g/dL (12.0-15.5) 8.4g/dL (12.0-15.5) Hematocrit 24.7% (36.0-47.0) 25.0% (36.0-47.0) Mean Corpuscular Volume 97fL (79-100) 96fL (79-100) Mean Corpuscular Hemoglobin 32pg (25-35) 32pg (25-35) Mean Corpuscular Hemoglobin Concent 33g/dL (31-37) 34g/dL (31-37) Red Cell Distribution Width 19.6% (11.5-14.5) 19.2% (11.5-14.5) Platelet Count 45x10^3/uL (140-400) 50x10^3/uL (140-400) Neutrophils (%) (Auto) 58% (31-73) 59% (31-73) Lymphocytes (%) (Auto) 23% (24-48) 19% (24-48) Monocytes (%) (Auto) 14% (0-9) 17% (0-9) Eosinophils (%) (Auto) 5% (0-3) 5% (0-3) Basophils (%) (Auto) 0% (0-3) 1% (0-3) Neutrophils # (Auto) 4.2x10^3uL (1.8-7.7) 4.2x10^3uL (1.8-7.7) Lymphocytes # (Auto) 1.7x10^3/uL (1.0-4.8) 1.3x10^3/uL (1.0-4.8) Monocytes # (Auto) 1.0x10^3/uL (0.0-1.1) 1.2x10^3/uL (0.0-1.1) Eosinophils # (Auto) 0.3x10^3/uL (0.0-0.7) 0.3x10^3/uL (0.0-0.7) Basophils # (Auto) 0.0x10^3/uL (0.0-0.2) 0.0x10^3/uL (0.0-0.2) Sodium Level 136mmol/L (136-145) 135mmol/L (136-145) Potassium Level 3.3mmol/L (3.5-5.1) 4.1mmol/L (3.5-5.1) Chloride Level 100mmol/L (98-107) 100mmol/L (98-107) Carbon Dioxide Level 27mmol/L (21-32) 25mmol/L (21-32) Anion Gap 9 (6-14) 10 (6-14) Blood Urea Nitrogen 13mg/dL (7-20) 15mg/dL (7-20) Creatinine 2.4mg/dL (0.6-1.0) 2.9mg/dL (0.6-1.0) Estimated GFR (Cockcroft-Gault) 19.8 16.0 Glucose Level 93mg/dL (70-99) 107mg/dL (70-99) Calcium Level 8.9mg/dL (8.5-10.1) 8.9mg/dL (8.5-10.1) Phosphorus Level 2.9mg/dL (2.6-4.7) 3.2mg/dL (2.6-4.7) Magnesium Level 2.3mg/dL (1.8-2.4) Albumin 2.1g/dL (3.4-5.0) 2.1g/dL (3.4-5.0) Ammonia 53mcmol/L (11-34) 36mcmol/L (11-34) Prothrombin Time 16.4SEC (11.7-14.0) Prothromb Time International Ratio 1.4 (0.8-1.1) Laboratory Tests Test 06/08/16 04:05 White Blood Count 7.0x10^3/uL (4.0-11.0) Red Blood Count 2.60x10^6/uL (3.50-5.40) Hemoglobin 8.4g/dL (12.0-15.5) Hematocrit 25.0% (36.0-47.0) Mean Corpuscular Volume 96fL (79-100) Mean Corpuscular Hemoglobin 32pg (25-35) Mean Corpuscular Hemoglobin Concent 34g/dL (31-37) Red Cell Distribution Width 19.2% (11.5-14.5) Platelet Count 50x10^3/uL (140-400) Neutrophils (%) (Auto) 59% (31-73) Lymphocytes (%) (Auto) 19% (24-48) Monocytes (%) (Auto) 17% (0-9) Eosinophils (%) (Auto) 5% (0-3) Basophils (%) (Auto) 1% (0-3) Neutrophils # (Auto) 4.2x10^3uL (1.8-7.7) Lymphocytes # (Auto) 1.3x10^3/uL (1.0-4.8) Monocytes # (Auto) 1.2x10^3/uL (0.0-1.1) Eosinophils # (Auto) 0.3x10^3/uL (0.0-0.7) Basophils # (Auto) 0.0x10^3/uL (0.0-0.2) Prothrombin Time 16.4SEC (11.7-14.0) Prothromb Time International Ratio 1.4 (0.8-1.1) Sodium Level 135mmol/L (136-145) Potassium Level 4.1mmol/L (3.5-5.1) Chloride Level 100mmol/L (98-107) Carbon Dioxide Level 25mmol/L (21-32) Anion Gap 10 (6-14) Blood Urea Nitrogen 15mg/dL (7-20) Creatinine 2.9mg/dL (0.6-1.0) Estimated GFR (Cockcroft-Gault) 16.0 Glucose Level 107mg/dL (70-99) Calcium Level 8.9mg/dL (8.5-10.1) Phosphorus Level 3.2mg/dL (2.6-4.7) Ammonia 36mcmol/L (11-34) Albumin 2.1g/dL (3.4-5.0) Microbiology 05/28/16 Blood Culture - Final, Complete NO GROWTH AFTER 5 DAYS Medications Current Medications Sodium Chloride (Iv Sodium Chloride 0.9% 1000ml Bag) 1,000 ml @ 1,000 mls/hr 1X ONCE IV Last administered on 05/28/16 16:07; Start 05/28/16 at 15:45; Stop 05/28/16 at 16:44; Status DC Ondansetron HCl 4 mg 4 mg PRN Q8HRS PRN IV NAUSEA/VOMITING; Start 05/28/16 at 17 :15; Stop 05/29/16 at 09:22; Status DC Sodium Chloride (Iv Sodium Chloride 0.9% 1000ml Bag) 1,000 ml @ 125 mls/hr Q8H IV ; Start 05/28/16 at 17:07; Stop 05/28/16 at 18:38; Status DC Lactulose 20 gm 20 gm PRN BID PRN PO CONSTIPATION; Start 05/28/16 at 18:45; Stop 05/29/16 at 10:00; Status DC Sodium Chloride (Iv Sodium Chloride 0.9% 1000ml Bag) 1,000 ml @ 100 mls/hr Q10H IV Last administered on 06/01/16 01:26; Start 05/28/16 at 19:00; Stop at 15:33; Status DC Acetaminophen (Tylenol) 325 mg PRN Q6HRS PRN PO MILD PAIN / TEMP Last administered on 06/05/16 17:40; Start 05/28/16 at 19:00 Acetaminophen/ Hydrocodone Bitart (Lortab 5/325) 1 tab PRN Q6HRS PRN PO MODERATE TO SEVERE PAIN Last administered on 06/07/16 20:30; Start 05/28/16 at 19:00 Hydralazine HCl (Apresoline) 10 mg PRN Q4HRS PRN IVP ELEVATED BP, SEE COMMENTS ; Start 05/28/16 at 19:00 Ondansetron HCl (Zofran) 4 mg PRN Q8HRS PRN IV NAUSEA/VOMITING Last administered on 05/30/16 03:36; Start 05/28/16 at 19:00 Albuterol Sulfate (Ventolin Neb Soln) 2.5 mg PRN Q4HRS PRN NEB SHORTNESS OF BREATH; Start 05/28/16 at 19:00 Lactulose 20 gm BID PO Last administered on 05/30/16 08:29; Start 05/29/16 at 10 :00; Stop 05/30/16 at 14:43; Status DC Pantoprazole Sodium (Protonix) 40 mg DAILYAC PO Last administered on 06/07/16 09:30; Start 05/29/16 at 10:00 Lactulose 20 gm TID PO ; Start 05/31/16 at 09:00; Stop 05/31/16 at 09:00; Status DC Lactulose 20 gm TID PO Last administered on 05/31/16 08:33; Start 05/30/16 at 14 :45; Stop 05/31/16 at 09:45; Status DC Rifaximin (Xifaxan) 550 mg Q12HR PO Last administered on 06/07/16 20:29; Start 05/30/16 at 15:00 Lactulose 20 gm 20 gm [id number] PO Last administered on 05/31/16 14:59; Start at 14:00; Stop 06/02/16 at 10:11; Status DC Magnesium Sulfate/ Dextrose 50 ml @ 25 mls/hr PRN DAILY PRN IV for Mag < 1.7 on am labs; Start 06/01/16 at 15:30 Sodium Bicarbonate/ Sodium Chloride (Iv Sodium Chloride 0.45%) 1,075 ml @ 100 mls/hr [id number] IV Last administered on 06/02/16 11:51; Start 06/01/16 at 15:45; Stop 06/02/16 at 18:18; Status DC Potassium Chloride (Klor-Con) 40 meq 1X ONCE PO Last administered on 06/02/16 08:39; Start 06/02/16 at 09:00; Stop 06/02/16 at 09:01; Status DC Lactulose 20 gm PRN BID PRN PO CONSTIPATION; Start 06/03/16 at 09:00; Stop at 12:00; Status DC Lactulose 20 gm BID PO Last administered on 06/02/16 11:49; Start 06/02/16 at 12 :00; Stop 06/03/16 at 10:38; Status DC Methylprednisolone Acetate (Depo-Medrol 40mg Vial) 40 mg 1X ONCE IM Last administered on 06/02/16 16:46; Start 06/02/16 at 16:30; Stop 06/02/16 at 16:31; Status DC Bupivacaine HCl (Sensorcaine-Mpf 0.25%) 10 ml 1X ONCE IJ Last administered on 06/02/16 16:46; Start 06/02/16 at 16:30; Stop 06/02/16 at 16:31; Status DC Methylprednisolone Acetate 40 mg 40 mg 1X ONCE IM Last administered on 16:45; Start 06/02/16 at 16:45; Stop 06/02/16 at 16:46; Status DC Sodium Bicarbonate/ Potassium Chloride/Sodium Chloride (Iv Sodium Chloride 0.45% ) 1,095 ml @ 100 mls/hr [id number] IV Last administered on 06/02/16 21:05; Start 06/02/16 at 18:30; Stop 06/03/16 at 05:26; Status DC Potassium Chloride 40 meq 40 meq 1X PRN PRN PO if repeat K < 3.7; Start at 18:15; Stop 06/03/16 at 05:00; Status DC Sodium Bicarbonate 75 meq/Sodium Chloride 1,075 ml @ 100 mls/hr [id number] IV Last administered on 06/04/16 03:30; Start 06/03/16 at 06:00; Stop 06/04/16 at 11: 39; Status DC Magnesium Sulfate/ Dextrose (Magnesium Sulfate PREMIX 4GM) 100 ml @ 25 mls/hr 1X ONCE IV Last administered on 06/03/16 10:10; Start 06/03/16 at 09:00; Stop 06/03/16 at 12:59; Status DC Magnesium Oxide (Magnesium Oxide) 400 mg DAILY PO Last administered on 09:30; Start 06/03/16 at 09:00 Lidocaine/Sodium Bicarbonate (Buffered Lidocaine 1%) 20 ml STK-MED ONCE IJ ; Start 06/03/16 at 10:23; Stop 06/03/16 at 10:24; Status DC Midazolam HCl (Versed) 5 mg STK-MED ONCE .ROUTE ; Start 06/03/16 at 10:24; Stop 06/03/16 at 10:25; Status DC Fentanyl Citrate (Fentanyl 5ml Vial) 250 mcg STK-MED ONCE .ROUTE ; Start at 10:24; Stop 06/03/16 at 10:25; Status DC Lidocaine/Sodium Bicarbonate (Buffered Lidocaine 1%) 20 ml 1X ONCE IJ Last administered on 06/03/16 10:57; Start 06/03/16 at 10:45; Stop 06/03/16 at 10:46; Status DC Midazolam HCl (Versed) 3 mg 1X ONCE IV Last administered on 06/03/16 10:58; Start 06/03/16 at 10:45; Stop 06/03/16 at 10:46; Status DC Fentanyl Citrate (Fentanyl 5ml Vial) 150 mcg 1X ONCE IV Last administered on 10:58; Start 06/03/16 at 10:45; Stop 06/03/16 at 10:46; Status DC Lactulose 20 gm DAILY PO Last administered on 06/04/16 09:02; Start 06/04/16 at 09:00; Stop 06/04/16 at 12:32; Status DC Albuterol/ Ipratropium (Duoneb) 3 ml RTQID NEB Last administered on 06/08/16 07:49; Start 06/03/16 at 20:00 Alprazolam (Xanax) 0.25 mg PRN Q8HRS PRN PO ANXIETY / AGITATION Last administered on 06/04/16 21:05; Start 06/04/16 at 10:15 Haloperidol Lactate (Haldol) 0.5 mg PRN Q6HRS PRN IVP AGITATION, 2ND CHOICE; Start 06/04/16 at 10:15 Lactulose 20 gm BID PO Last administered on 06/08/16 08:19; Start 06/04/16 at 21:00 Midazolam HCl (Versed) 2 mg STK-MED ONCE .ROUTE ; Start 06/04/16 at 12:35; Stop 06/04/16 at 12:36; Status DC Fentanyl Citrate 100 mcg 100 mcg STK-MED ONCE .ROUTE ; Start 06/04/16 at 12:35; Stop 06/04/16 at 12:36; Status DC Cefazolin Sodium (Ancef 1gm Ivpb For Omni) 50 ml @ As Directed STK-MED ONCE IV ; Start 06/04/16 at 12:35; Stop 06/04/16 at 12:36; Status DC Heparin Sodium (Porcine) 10,000 unit STK-MED ONCE .ROUTE ; Start 06/04/16 at 12: 37; Stop 06/04/16 at 12:38; Status DC Lidocaine/ Epinephrine 20 ml 20 ml STK-MED ONCE .ROUTE ; Start 06/04/16 at 12:37 ; Stop 06/04/16 at 12:38; Status DC Heparin Sodium/ Sodium Chloride 500 ml @ As Directed STK-MED ONCE .ROUTE ; Start 06/04/16 at 12:37; Stop 06/04/16 at 12:38; Status DC Heparin Sodium/ Sodium Chloride 1,000 unit 1X ONCE IART Last administered on 13:09; Start 06/04/16 at 13:15; Stop 06/04/16 at 13:16; Status DC Midazolam HCl (Versed) 2 mg 1X ONCE IV Last administered on 06/04/16 13:12; Start 06/04/16 at 13:15; Stop 06/04/16 at 13:16; Status DC Fentanyl Citrate 100 mcg 100 mcg 1X ONCE IV Last administered on 06/04/16 13: 12; Start 06/04/16 at 13:15; Stop 06/04/16 at 13:16; Status DC Cefazolin Sodium (Ancef 1gm Ivpb For Omni) 50 ml @ 100 mls/hr 1X ONCE IV Last administered on 06/04/16 13:13; Start 06/04/16 at 13:15; Stop 06/04/16 at 13: 44; Status DC Heparin Sodium (Porcine) 2,600 unit 1X ONCE INT CAT Last administered on 13:10; Start 06/04/16 at 13:15; Stop 06/04/16 at 13:16; Status DC Lidocaine/ Epinephrine 20 ml 20 ml 1X ONCE IJ Last administered on 06/04/16 13 :11; Start 06/04/16 at 13:15; Stop 06/04/16 at 13:16; Status DC Sodium Chloride (Iv Sodium Chloride 0.9% 1000ml Bag) 1,000 ml @ 1,000 mls/hr Q1H PRN IV hypotension; Start 06/04/16 at 18:12; Stop 06/05/16 at 00:11; Status DC Sodium Chloride (Normal Saline Flush) 10 ml 1X PRN PRN IV AP catheter pack; Start 06/04/16 at 18:15; Stop 06/05/16 at 18:14; Status Cancel Sodium Chloride (Normal Saline Flush) 10 ml 1X PRN PRN IV 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; Start 06/04/16 at 18:15; Stop 06/05/16 at 18:14; Status Cancel Info (PHARMACY MONITORING -- do not chart) 1 each PRN DAILY PRN MC SEE COMMENTS ; Start 06/04/16 at 18:15; Status UNV Info (PHARMACY MONITORING -- do not chart) 1 each PRN DAILY PRN MC SEE COMMENTS ; Start 06/04/16 at 18:15 Albuterol/ Ipratropium 3 ml 3 ml 1X ONCE NEB Last administered on 06/05/16 00 :29; Start 06/05/16 at 00:15; Stop 06/05/16 at 00:16; Status DC Sodium Chloride 1,000 ml @ 1,000 mls/hr Q1H PRN IV hypotension; Start 06/05/16 at 11:56; Stop 06/05/16 at 17:55; Status DC Albumin Human (Albuminar) 200 ml @ 200 mls/hr 1X PRN PRN IV Hypotension; Start 06/05/16 at 12:00; Stop 06/05/16 at 17:59; Status DC Acetaminophen (Tylenol) 500 mg 1X PRN PRN PO MILD PAIN / TEMP; Start 06/05/16 at 12:00; Stop 06/06/16 at 11:59; Status DC Diphenhydramine HCl (Benadryl) 25 mg 1X PRN PRN IV ITCHING; Start 06/05/16 at 12:00; Stop 06/06/16 at 11:59; Status DC Diphenhydramine HCl (Benadryl) 25 mg 1X PRN PRN IV ITCHING; Start 06/05/16 at 12:00; Stop 06/06/16 at 11:59; Status DC Sodium Chloride (Normal Saline Flush) 10 ml 1X PRN PRN IV AP catheter pack; Start 06/05/16 at 12:00; Stop 06/06/16 at 11:59; Status DC Sodium Chloride (Normal Saline Flush) 10 ml 1X PRN PRN IV 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; Start 06/05/16 at 12:00; Stop 06/06/16 at 11:59; Status DC Info 1 each 1 each PRN DAILY PRN MC SEE COMMENTS; Start 06/05/16 at 12:00; Status UNV Magnesium Sulfate/ Dextrose (Magnesium Sulfate PREMIX 2GM) 50 ml @ 25 mls/hr 1X ONCE IV Last administered on 06/06/16 07:56; Start 06/06/16 at 06:45; Stop 06/06/16 at 08:44; Status DC Potassium Chloride (Klor-Con) 40 meq 1X ONCE PO Last administered on 09:31; Start 06/07/16 at 08:45; Stop 06/07/16 at 08:46; Status DC Active Scripts Active Pantoprazole Sodium 40 Mg Tablet.dr 40 Mg PO DAILYAC 30 Days Reported Neomycin Sulfate 500 Mg Tablet 1 Tab PO BID Spironolactone 50 Mg Tablet 1 Tab PO DAILY Mag-Oxide (Magnesium Oxide) 400 Mg Tablet 2 Tab PO BID Vitamin D3 (Cholecalciferol (Vitamin D3)) 400 Unit Tablet 400 Unit PO BID Fish Oil Conc 1,000 mg Softgel (Holmen-3/Dha/Epa/Fish Oil) 1,000 Mg Capsule 3, 000 Mg PO DAILY Multiple Vitamin (Multivitamin With Minerals) 1 Each Tablet 1 Each PO Corzide 40-5 Tablet (Nadolol/Bendroflumethiazide) 1 Each Tablet 0.5 Tab PO DAILY Coenzyme Q10 (Ubidecarenone) 100 Mg Capsule 100 Mg PO DAILY Calcium (Calcium Carbonate) 600 Mg Tablet 600 Mg PO BID Vitals/I & O Vital Sign - Last 24 Hours 06/07/16 06/07/16 06/07/16 06/07/16 11:26 14:35 15:17 19:00 Temp 97.7 98.0 97.7 98.0 Pulse 102 99 Resp 18 16 B/P 126/81 147/83 Pulse Ox 92 93 O2 Delivery Room Air Room Air Room Air Room Air 06/07/16 06/07/16 06/07/16 06/07/16 19:05 19:36 20:30 21:28 Resp 16 Pulse Ox 95 95 95 O2 Delivery Room Air Room Air Room Air Room Air 06/07/16 06/08/16 06/08/16 06/08/16 22:58 02:34 07:00 07:52 Temp 98.2 97.6 98.4 98.2 97.6 98.4 Pulse 109 98 88 Resp 16 19 B/P 136/84 131/79 145/81 Pulse Ox 94 93 97 97 O2 Delivery Room Air Room Air Room Air Room Air 06/08/16 08:00 O2 Delivery Room Air O2 Flow Rate 2.0 Intake and Output 06/07/16 06/07/16 06/08/16 15:00 23:00 07:00 Intake Total 390 ml 180 ml 360 ml Balance 390 ml 180 ml 360 ml CESARIO ABARCA MD Jun 08, 2016 10:35
[2016-06-08] MEDS ORDERED: IV NORMAL SALINE 1000ML BAG 1,000 ML IV PRN ×2 (10:39)
[2016-06-08] MEDS ORDERED: DIALYSIS PATIENT. MC PRN (10:45)
[2016-06-08 11:00] VITALS: BP 130/77
[2016-06-08 11:05] LABS: NEGATIVE OBC MONO NEG; POSITIVE OBC MONO POS
[2016-06-08 11:14] LABS: NEGATIVE OBC MYCO NEG; POSITIVE OBC MYCO POS
--- NOTE | 2016-06-08 11:35 | PDOC ---
Renal-Progress Notes Subjective Notes Notes NO COMPLAINTS History of Present Illness Hx of present illness STABLE Vitals Vitals Vital Signs Date Time Temp Pulse Resp B/P Pulse Ox O2 Delivery O2 Flow Rate FiO2 06/08/16 08:00 Room Air 2.0 06/08/16 07:52 97 06/08/16 07:00 98.4 88 145/81 98.4 06/08/16 02:34 19 Weight Weight [ ] I.O. Intake and Output Intake and Output 06/08/16 07:00 Intake Total 930 ml Balance 930 ml Intake Oral 930 ml # Voids 4 # Bowel Movements 4 Labs Labs Laboratory Tests Test 06/08/16 04:05 White Blood Count 7.0x10^3/uL (4.0-11.0) Red Blood Count 2.60x10^6/uL (3.50-5.40) Hemoglobin 8.4g/dL (12.0-15.5) Hematocrit 25.0% (36.0-47.0) Mean Corpuscular Volume 96fL (79-100) Mean Corpuscular Hemoglobin 32pg (25-35) Mean Corpuscular Hemoglobin Concent 34g/dL (31-37) Red Cell Distribution Width 19.2% (11.5-14.5) Platelet Count 50x10^3/uL (140-400) Neutrophils (%) (Auto) 59% (31-73) Lymphocytes (%) (Auto) 19% (24-48) Monocytes (%) (Auto) 17% (0-9) Eosinophils (%) (Auto) 5% (0-3) Basophils (%) (Auto) 1% (0-3) Neutrophils # (Auto) 4.2x10^3uL (1.8-7.7) Lymphocytes # (Auto) 1.3x10^3/uL (1.0-4.8) Monocytes # (Auto) 1.2x10^3/uL (0.0-1.1) Eosinophils # (Auto) 0.3x10^3/uL (0.0-0.7) Basophils # (Auto) 0.0x10^3/uL (0.0-0.2) Prothrombin Time 16.4SEC (11.7-14.0) Prothromb Time International Ratio 1.4 (0.8-1.1) Sodium Level 135mmol/L (136-145) Potassium Level 4.1mmol/L (3.5-5.1) Chloride Level 100mmol/L (98-107) Carbon Dioxide Level 25mmol/L (21-32) Anion Gap 10 (6-14) Blood Urea Nitrogen 15mg/dL (7-20) Creatinine 2.9mg/dL (0.6-1.0) Estimated GFR (Cockcroft-Gault) 16.0 Glucose Level 107mg/dL (70-99) Calcium Level 8.9mg/dL (8.5-10.1) Phosphorus Level 3.2mg/dL (2.6-4.7) Ammonia 36mcmol/L (11-34) Albumin 2.1g/dL (3.4-5.0) Heterophil Agglutinins Negative (NEGATIVE) Mycoplasma Serology (LAB) Negative (NEGATIVE) Micro Micro Microbiology 05/28/16 Blood Culture - Final, Complete NO GROWTH AFTER 5 DAYS Review of Systems Constitutional: yes: alert, weakness Physical Exam General Appearance: no apparent distress, thin, other Respiratory: bilateral CTA Heart: S1S2 Abdomen: soft, bowel sounds present Neurology: alert Assessment Assessment IMP KVNG-OLIGURIC MET ENCEPHALOPATHY-BETTER CYTOPENIA PLAN RENAL BX TOMORROW D/W IR HD TODAY UF MINIMAL IVF'S WILL FOLLOW WILLIAM JORGE MD Jun 08, 2016 11:35
[2016-06-08] MEDS: IV NORMAL SALINE 1000ML BAG 1,000 ML IV SCH (11:45)
--- NOTE | 2016-06-08 11:46 | PDOC ---
PROGRESS NOTES Chief Complaint Chief Complaint CC- Altered mental status, hyperammonemia 1. Encephalopathy, possible metabolic, hepatic. 2. Acute kidney injury, ATN,myeloma? 3. Metabolic acidosis. 4. Thrombocytopenia 2/2 cirrhosis likely 5. Anemia, chronic. 6. Hyperbilirubinemia. 7. Alcoholism. 8. high INR 2/2 CIrrhosis likely 9, LEFT thigh pain, 2/2 OA? 10. hypomagnesemia History of Present Illness History of Present Illness Patient was awake, alert and discussing about her discharge plan, she is still on lactulose, confusion is on and off, knee pain better after steroid injection by Dr. James, plan of care discussed with pt. and RN. Vitals Vitals Vital Signs Date Time Temp Pulse Resp B/P Pulse Ox O2 Delivery O2 Flow Rate FiO2 06/08/16 08:00 Room Air 2.0 06/08/16 07:52 97 06/08/16 07:00 98.4 88 145/81 98.4 06/08/16 02:34 19 Physical Exam Physical Exam aaox2 to person and place only General: Alert, Cooperative, No acute distress Heart: Regular rate Lungs: Clear Abdomen: Soft, No tenderness, Other (no ascites) Extremities: No edema Skin: No rashes Labs LABS Laboratory Tests Test 06/08/16 04:05 White Blood Count 7.0x10^3/uL (4.0-11.0) Red Blood Count 2.60x10^6/uL (3.50-5.40) Hemoglobin 8.4g/dL (12.0-15.5) Hematocrit 25.0% (36.0-47.0) Mean Corpuscular Volume 96fL (79-100) Mean Corpuscular Hemoglobin 32pg (25-35) Mean Corpuscular Hemoglobin Concent 34g/dL (31-37) Red Cell Distribution Width 19.2% (11.5-14.5) Platelet Count 50x10^3/uL (140-400) Neutrophils (%) (Auto) 59% (31-73) Lymphocytes (%) (Auto) 19% (24-48) Monocytes (%) (Auto) 17% (0-9) Eosinophils (%) (Auto) 5% (0-3) Basophils (%) (Auto) 1% (0-3) Neutrophils # (Auto) 4.2x10^3uL (1.8-7.7) Lymphocytes # (Auto) 1.3x10^3/uL (1.0-4.8) Monocytes # (Auto) 1.2x10^3/uL (0.0-1.1) Eosinophils # (Auto) 0.3x10^3/uL (0.0-0.7) Basophils # (Auto) 0.0x10^3/uL (0.0-0.2) Prothrombin Time 16.4SEC (11.7-14.0) Prothromb Time International Ratio 1.4 (0.8-1.1) Sodium Level 135mmol/L (136-145) Potassium Level 4.1mmol/L (3.5-5.1) Chloride Level 100mmol/L (98-107) Carbon Dioxide Level 25mmol/L (21-32) Anion Gap 10 (6-14) Blood Urea Nitrogen 15mg/dL (7-20) Creatinine 2.9mg/dL (0.6-1.0) Estimated GFR (Cockcroft-Gault) 16.0 Glucose Level 107mg/dL (70-99) Calcium Level 8.9mg/dL (8.5-10.1) Phosphorus Level 3.2mg/dL (2.6-4.7) Ammonia 36mcmol/L (11-34) Albumin 2.1g/dL (3.4-5.0) Heterophil Agglutinins Negative (NEGATIVE) Mycoplasma Serology (LAB) Negative (NEGATIVE) Review of Systems Review of Systems No ascites, no cough, no SOB, no CP, awake, alert, not confused at the time of evaluation but has intermittent confusion episodes, Assessment and Plan Assessmemt and Plan Assessment: 1. Encephalopathy, possible metabolic, hepatic. 2. Acute kidney injury, ATN,myeloma? 3. Metabolic acidosis. 4. Thrombocytopenia 2/2 cirrhosis likely 5. Anemia, chronic. 6. Hyperbilirubinemia. 7. Alcoholism. 8. high INR 2/2 CIrrhosis likely 9, LEFT thigh pain, 2/2 OA? 10. 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 - Recheck routine labs and ammonia level in AM - PT/OT - Discussed with RN and pt. - Appreciate subspecialities inputs and recommendation - Need SNF discharge for encephalopathy Problems: Comment Review of Relevant I have reviewed the following items amy (where applicable) has been applied. Labs Laboratory Tests Test 06/07/16 04:13 06/07/16 09:10 06/08/16 04:05 White Blood Count 7.2x10^3/uL (4.0-11.0) 7.0x10^3/uL (4.0-11.0) Red Blood Count 2.55x10^6/uL (3.50-5.40) 2.60x10^6/uL (3.50-5.40) Hemoglobin 8.2g/dL (12.0-15.5) 8.4g/dL (12.0-15.5) Hematocrit 24.7% (36.0-47.0) 25.0% (36.0-47.0) Mean Corpuscular Volume 97fL (79-100) 96fL (79-100) Mean Corpuscular Hemoglobin 32pg (25-35) 32pg (25-35) Mean Corpuscular Hemoglobin Concent 33g/dL (31-37) 34g/dL (31-37) Red Cell Distribution Width 19.6% (11.5-14.5) 19.2% (11.5-14.5) Platelet Count 45x10^3/uL (140-400) 50x10^3/uL (140-400) Neutrophils (%) (Auto) 58% (31-73) 59% (31-73) Lymphocytes (%) (Auto) 23% (24-48) 19% (24-48) Monocytes (%) (Auto) 14% (0-9) 17% (0-9) Eosinophils (%) (Auto) 5% (0-3) 5% (0-3) Basophils (%) (Auto) 0% (0-3) 1% (0-3) Neutrophils # (Auto) 4.2x10^3uL (1.8-7.7) 4.2x10^3uL (1.8-7.7) Lymphocytes # (Auto) 1.7x10^3/uL (1.0-4.8) 1.3x10^3/uL (1.0-4.8) Monocytes # (Auto) 1.0x10^3/uL (0.0-1.1) 1.2x10^3/uL (0.0-1.1) Eosinophils # (Auto) 0.3x10^3/uL (0.0-0.7) 0.3x10^3/uL (0.0-0.7) Basophils # (Auto) 0.0x10^3/uL (0.0-0.2) 0.0x10^3/uL (0.0-0.2) Sodium Level 136mmol/L (136-145) 135mmol/L (136-145) Potassium Level 3.3mmol/L (3.5-5.1) 4.1mmol/L (3.5-5.1) Chloride Level 100mmol/L (98-107) 100mmol/L (98-107) Carbon Dioxide Level 27mmol/L (21-32) 25mmol/L (21-32) Anion Gap 9 (6-14) 10 (6-14) Blood Urea Nitrogen 13mg/dL (7-20) 15mg/dL (7-20) Creatinine 2.4mg/dL (0.6-1.0) 2.9mg/dL (0.6-1.0) Estimated GFR (Cockcroft-Gault) 19.8 16.0 Glucose Level 93mg/dL (70-99) 107mg/dL (70-99) Calcium Level 8.9mg/dL (8.5-10.1) 8.9mg/dL (8.5-10.1) Phosphorus Level 2.9mg/dL (2.6-4.7) 3.2mg/dL (2.6-4.7) Magnesium Level 2.3mg/dL (1.8-2.4) Albumin 2.1g/dL (3.4-5.0) 2.1g/dL (3.4-5.0) Ammonia 53mcmol/L (11-34) 36mcmol/L (11-34) Prothrombin Time 16.4SEC (11.7-14.0) Prothromb Time International Ratio 1.4 (0.8-1.1) Heterophil Agglutinins Negative (NEGATIVE) Mycoplasma Serology (LAB) Negative (NEGATIVE) Laboratory Tests Test 06/08/16 04:05 White Blood Count 7.0x10^3/uL (4.0-11.0) Red Blood Count 2.60x10^6/uL (3.50-5.40) Hemoglobin 8.4g/dL (12.0-15.5) Hematocrit 25.0% (36.0-47.0) Mean Corpuscular Volume 96fL (79-100) Mean Corpuscular Hemoglobin 32pg (25-35) Mean Corpuscular Hemoglobin Concent 34g/dL (31-37) Red Cell Distribution Width 19.2% (11.5-14.5) Platelet Count 50x10^3/uL (140-400) Neutrophils (%) (Auto) 59% (31-73) Lymphocytes (%) (Auto) 19% (24-48) Monocytes (%) (Auto) 17% (0-9) Eosinophils (%) (Auto) 5% (0-3) Basophils (%) (Auto) 1% (0-3) Neutrophils # (Auto) 4.2x10^3uL (1.8-7.7) Lymphocytes # (Auto) 1.3x10^3/uL (1.0-4.8) Monocytes # (Auto) 1.2x10^3/uL (0.0-1.1) Eosinophils # (Auto) 0.3x10^3/uL (0.0-0.7) Basophils # (Auto) 0.0x10^3/uL (0.0-0.2) Prothrombin Time 16.4SEC (11.7-14.0) Prothromb Time International Ratio 1.4 (0.8-1.1) Sodium Level 135mmol/L (136-145) Potassium Level 4.1mmol/L (3.5-5.1) Chloride Level 100mmol/L (98-107) Carbon Dioxide Level 25mmol/L (21-32) Anion Gap 10 (6-14) Blood Urea Nitrogen 15mg/dL (7-20) Creatinine 2.9mg/dL (0.6-1.0) Estimated GFR (Cockcroft-Gault) 16.0 Glucose Level 107mg/dL (70-99) Calcium Level 8.9mg/dL (8.5-10.1) Phosphorus Level 3.2mg/dL (2.6-4.7) Ammonia 36mcmol/L (11-34) Albumin 2.1g/dL (3.4-5.0) Heterophil Agglutinins Negative (NEGATIVE) Mycoplasma Serology (LAB) Negative (NEGATIVE) Microbiology 05/28/16 Blood Culture - Final, Complete NO GROWTH AFTER 5 DAYS Medications Current Medications Sodium Chloride (Iv Sodium Chloride 0.9% 1000ml Bag) 1,000 ml @ 1,000 mls/hr 1X ONCE IV Last administered on 05/28/16 16:07; Start 05/28/16 at 15:45; Stop 05/28/16 at 16:44; Status DC Ondansetron HCl 4 mg 4 mg PRN Q8HRS PRN IV NAUSEA/VOMITING; Start 05/28/16 at 17 :15; Stop 05/29/16 at 09:22; Status DC Sodium Chloride (Iv Sodium Chloride 0.9% 1000ml Bag) 1,000 ml @ 125 mls/hr Q8H IV ; Start 05/28/16 at 17:07; Stop 05/28/16 at 18:38; Status DC Lactulose 20 gm 20 gm PRN BID PRN PO CONSTIPATION; Start 05/28/16 at 18:45; Stop 05/29/16 at 10:00; Status DC Sodium Chloride (Iv Sodium Chloride 0.9% 1000ml Bag) 1,000 ml @ 100 mls/hr Q10H IV Last administered on 06/01/16 01:26; Start 05/28/16 at 19:00; Stop at 15:33; Status DC Acetaminophen (Tylenol) 325 mg PRN Q6HRS PRN PO MILD PAIN / TEMP Last administered on 06/05/16 17:40; Start 05/28/16 at 19:00 Acetaminophen/ Hydrocodone Bitart (Lortab 5/325) 1 tab PRN Q6HRS PRN PO MODERATE TO SEVERE PAIN Last administered on 06/07/16 20:30; Start 05/28/16 at 19:00 Hydralazine HCl (Apresoline) 10 mg PRN Q4HRS PRN IVP ELEVATED BP, SEE COMMENTS ; Start 05/28/16 at 19:00 Ondansetron HCl (Zofran) 4 mg PRN Q8HRS PRN IV NAUSEA/VOMITING Last administered on 05/30/16 03:36; Start 05/28/16 at 19:00 Albuterol Sulfate (Ventolin Neb Soln) 2.5 mg PRN Q4HRS PRN NEB SHORTNESS OF BREATH; Start 05/28/16 at 19:00 Lactulose 20 gm BID PO Last administered on 05/30/16 08:29; Start 05/29/16 at 10 :00; Stop 05/30/16 at 14:43; Status DC Pantoprazole Sodium (Protonix) 40 mg DAILYAC PO Last administered on 06/07/16 09:30; Start 05/29/16 at 10:00 Lactulose 20 gm TID PO ; Start 05/31/16 at 09:00; Stop 05/31/16 at 09:00; Status DC Lactulose 20 gm TID PO Last administered on 05/31/16 08:33; Start 05/30/16 at 14 :45; Stop 05/31/16 at 09:45; Status DC Rifaximin (Xifaxan) 550 mg Q12HR PO Last administered on 06/07/16 20:29; Start 05/30/16 at 15:00 Lactulose 20 gm 20 gm [id number] PO Last administered on 05/31/16 14:59; Start at 14:00; Stop 06/02/16 at 10:11; Status DC Magnesium Sulfate/ Dextrose 50 ml @ 25 mls/hr PRN DAILY PRN IV for Mag < 1.7 on am labs; Start 06/01/16 at 15:30 Sodium Bicarbonate/ Sodium Chloride (Iv Sodium Chloride 0.45%) 1,075 ml @ 100 mls/hr [id number] IV Last administered on 06/02/16 11:51; Start 06/01/16 at 15:45; Stop 06/02/16 at 18:18; Status DC Potassium Chloride (Klor-Con) 40 meq 1X ONCE PO Last administered on 06/02/16 08:39; Start 06/02/16 at 09:00; Stop 06/02/16 at 09:01; Status DC Lactulose 20 gm PRN BID PRN PO CONSTIPATION; Start 06/03/16 at 09:00; Stop at 12:00; Status DC Lactulose 20 gm BID PO Last administered on 06/02/16 11:49; Start 06/02/16 at 12 :00; Stop 06/03/16 at 10:38; Status DC Methylprednisolone Acetate (Depo-Medrol 40mg Vial) 40 mg 1X ONCE IM Last administered on 06/02/16 16:46; Start 06/02/16 at 16:30; Stop 06/02/16 at 16:31; Status DC Bupivacaine HCl (Sensorcaine-Mpf 0.25%) 10 ml 1X ONCE IJ Last administered on 06/02/16 16:46; Start 06/02/16 at 16:30; Stop 06/02/16 at 16:31; Status DC Methylprednisolone Acetate 40 mg 40 mg 1X ONCE IM Last administered on 16:45; Start 06/02/16 at 16:45; Stop 06/02/16 at 16:46; Status DC Sodium Bicarbonate/ Potassium Chloride/Sodium Chloride (Iv Sodium Chloride 0.45% ) 1,095 ml @ 100 mls/hr [id number] IV Last administered on 06/02/16 21:05; Start 06/02/16 at 18:30; Stop 06/03/16 at 05:26; Status DC Potassium Chloride 40 meq 40 meq 1X PRN PRN PO if repeat K < 3.7; Start at 18:15; Stop 06/03/16 at 05:00; Status DC Sodium Bicarbonate 75 meq/Sodium Chloride 1,075 ml @ 100 mls/hr [id number] IV Last administered on 06/04/16 03:30; Start 06/03/16 at 06:00; Stop 06/04/16 at 11: 39; Status DC Magnesium Sulfate/ Dextrose (Magnesium Sulfate PREMIX 4GM) 100 ml @ 25 mls/hr 1X ONCE IV Last administered on 06/03/16 10:10; Start 06/03/16 at 09:00; Stop 06/03/16 at 12:59; Status DC Magnesium Oxide (Magnesium Oxide) 400 mg DAILY PO Last administered on 09:30; Start 06/03/16 at 09:00 Lidocaine/Sodium Bicarbonate (Buffered Lidocaine 1%) 20 ml [place]-MED ONCE IJ ; Start 06/03/16 at 10:23; Stop 06/03/16 at 10:24; Status DC Midazolam HCl (Versed) 5 mg STK-MED ONCE .ROUTE ; Start 06/03/16 at 10:24; Stop 06/03/16 at 10:25; Status DC Fentanyl Citrate (Fentanyl 5ml Vial) 250 mcg STK-MED ONCE .ROUTE ; Start at 10:24; Stop 06/03/16 at 10:25; Status DC Lidocaine/Sodium Bicarbonate (Buffered Lidocaine 1%) 20 ml 1X ONCE IJ Last administered on 06/03/16 10:57; Start 06/03/16 at 10:45; Stop 06/03/16 at 10:46; Status DC Midazolam HCl (Versed) 3 mg 1X ONCE IV Last administered on 06/03/16 10:58; Start 06/03/16 at 10:45; Stop 06/03/16 at 10:46; Status DC Fentanyl Citrate (Fentanyl 5ml Vial) 150 mcg 1X ONCE IV Last administered on 10:58; Start 06/03/16 at 10:45; Stop 06/03/16 at 10:46; Status DC Lactulose 20 gm DAILY PO Last administered on 06/04/16 09:02; Start 06/04/16 at 09:00; Stop 06/04/16 at 12:32; Status DC Albuterol/ Ipratropium (Duoneb) 3 ml RTQID NEB Last administered on 06/08/16 07:49; Start 06/03/16 at 20:00 Alprazolam (Xanax) 0.25 mg PRN Q8HRS PRN PO ANXIETY / AGITATION Last administered on 06/04/16 21:05; Start 06/04/16 at 10:15 Haloperidol Lactate (Haldol) 0.5 mg PRN Q6HRS PRN IVP AGITATION, 2ND CHOICE; Start 06/04/16 at 10:15 Lactulose 20 gm BID PO Last administered on 06/08/16 08:19; Start 06/04/16 at 21:00 Midazolam HCl (Versed) 2 mg STK-MED ONCE .ROUTE ; Start 06/04/16 at 12:35; Stop 06/04/16 at 12:36; Status DC Fentanyl Citrate 100 mcg 100 mcg STK-MED ONCE .ROUTE ; Start 06/04/16 at 12:35; Stop 06/04/16 at 12:36; Status DC Cefazolin Sodium (Ancef 1gm Ivpb For Omni) 50 ml @ As Directed STK-MED ONCE IV ; Start 06/04/16 at 12:35; Stop 06/04/16 at 12:36; Status DC Heparin Sodium (Porcine) 10,000 unit STK-MED ONCE .ROUTE ; Start 06/04/16 at 12: 37; Stop 06/04/16 at 12:38; Status DC Lidocaine/ Epinephrine 20 ml 20 ml STK-MED ONCE .ROUTE ; Start 06/04/16 at 12:37 ; Stop 06/04/16 at 12:38; Status DC Heparin Sodium/ Sodium Chloride 500 ml @ As Directed STK-MED ONCE .ROUTE ; Start 06/04/16 at 12:37; Stop 06/04/16 at 12:38; Status DC Heparin Sodium/ Sodium Chloride 1,000 unit 1X ONCE IART Last administered on 13:09; Start 06/04/16 at 13:15; Stop 06/04/16 at 13:16; Status DC Midazolam HCl (Versed) 2 mg 1X ONCE IV Last administered on 06/04/16 13:12; Start 06/04/16 at 13:15; Stop 06/04/16 at 13:16; Status DC Fentanyl Citrate 100 mcg 100 mcg 1X ONCE IV Last administered on 06/04/16 13: 12; Start 06/04/16 at 13:15; Stop 06/04/16 at 13:16; Status DC Cefazolin Sodium (Ancef 1gm Ivpb For Omni) 50 ml @ 100 mls/hr 1X ONCE IV Last administered on 06/04/16 13:13; Start 06/04/16 at 13:15; Stop 06/04/16 at 13: 44; Status DC Heparin Sodium (Porcine) 2,600 unit 1X ONCE INT CAT Last administered on 13:10; Start 06/04/16 at 13:15; Stop 06/04/16 at 13:16; Status DC Lidocaine/ Epinephrine 20 ml 20 ml 1X ONCE IJ Last administered on 06/04/16 13 :11; Start 06/04/16 at 13:15; Stop 06/04/16 at 13:16; Status DC Sodium Chloride (Iv Sodium Chloride 0.9% 1000ml Bag) 1,000 ml @ 1,000 mls/hr Q1H PRN IV hypotension; Start 06/04/16 at 18:12; Stop 06/05/16 at 00:11; Status DC Sodium Chloride (Normal Saline Flush) 10 ml 1X PRN PRN IV AP catheter pack; Start 06/04/16 at 18:15; Stop 06/05/16 at 18:14; Status Cancel Sodium Chloride (Normal Saline Flush) 10 ml 1X PRN PRN IV [employer] catheter pack; Start 06/04/16 at 18:15; Stop 06/05/16 at 18:14; Status Cancel Info (PHARMACY MONITORING -- do not chart) 1 each PRN DAILY PRN MC SEE COMMENTS ; Start 06/04/16 at 18:15; Status UNV Info (PHARMACY MONITORING -- do not chart) 1 each PRN DAILY PRN MC SEE COMMENTS ; Start 06/04/16 at 18:15 Albuterol/ Ipratropium 3 ml 3 ml 1X ONCE NEB Last administered on 06/05/16t 00 :29; Start 06/05/16 at 00:15; Stop 06/05/16 at 00:16; Status DC Sodium Chloride 1,000 ml @ 1,000 mls/hr Q1H PRN IV hypotension; Start 06/05/16 at 11:56; Stop 06/05/16 at 17:55; Status DC Albumin Human (Albuminar) 200 ml @ 200 mls/hr 1X PRN PRN IV Hypotension; Start 06/05/16 at 12:00; Stop 06/05/16 at 17:59; Status DC Acetaminophen (Tylenol) 500 mg 1X PRN PRN PO MILD PAIN / TEMP; Start 06/05/16 at 12:00; Stop 06/06/16 at 11:59; Status DC Diphenhydramine HCl (Benadryl) 25 mg 1X PRN PRN IV ITCHING; Start 06/05/16 at 12:00; Stop 06/06/16 at 11:59; Status DC Diphenhydramine HCl (Benadryl) 25 mg 1X PRN PRN IV ITCHING; Start 06/05/16 at 12:00; Stop 06/06/16 at 11:59; Status DC Sodium Chloride (Normal Saline Flush) 10 ml 1X PRN PRN IV AP catheter pack; Start 06/05/16 at 12:00; Stop 06/06/16 at 11:59; Status DC Sodium Chloride (Normal Saline Flush) 10 ml 1X PRN PRN IV [employer] catheter pack; Start 06/05/16 at 12:00; Stop 06/06/16 at 11:59; Status DC Info 1 each 1 each PRN DAILY PRN MC SEE COMMENTS; Start 06/05/16 at 12:00; Status UNV Magnesium Sulfate/ Dextrose (Magnesium Sulfate PREMIX 2GM) 50 ml @ 25 mls/hr 1X ONCE IV Last administered on 06/06/16t 07:56; Start 06/06/16 at 06:45; Stop 06/06/16 at 08:44; Status DC Potassium Chloride 40 meq 40 meq 1X ONCE PO Last administered on 06/07/16 09: 31; Start 06/07/16 at 08:45; Stop 06/07/16 at 08:46; Status DC Sodium Chloride 1,000 ml @ 1,000 mls/hr Q1H PRN IV hypotension; Start 06/08/16 at 10:39; Stop 06/08/16 at 16:38 Sodium Chloride (Iv Sodium Chloride 0.9% 1000ml Bag) 1,000 ml @ 400 mls/hr Q2H30M PRN IV PATENCY; Start 06/08/16 at 10:39; Stop 06/08/16 at 22:38 Info (PHARMACY MONITORING -- do not chart) 1 each PRN DAILY PRN MC SEE COMMENTS ; Start 06/08/16 at 10:45 Active Scripts Active Pantoprazole Sodium 40 Mg Tablet.dr 40 Mg PO DAILYAC 30 Days Reported Neomycin Sulfate 500 Mg Tablet 1 Tab PO BID Spironolactone 50 Mg Tablet 1 Tab PO DAILY Mag-Oxide (Magnesium Oxide) 400 Mg Tablet 2 Tab PO BID Vitamin D3 (Cholecalciferol (Vitamin D3)) 400 Unit Tablet 400 Unit PO BID Fish Oil Conc 1,000 mg Softgel (Mcdonough-3/Dha/Epa/Fish Oil) 1,000 Mg Capsule 3, 000 Mg PO DAILY Multiple Vitamin (Multivitamin With Minerals) 1 Each Tablet 1 Each PO Corzide 40-5 Tablet (Nadolol/Bendroflumethiazide) 1 Each Tablet 0.5 Tab PO DAILY Coenzyme Q10 (Ubidecarenone) 100 Mg Capsule 100 Mg PO DAILY Calcium (Calcium Carbonate) 600 Mg Tablet 600 Mg PO BID Vitals/I & O Vital Sign - Last 24 Hours 06/07/16 06/07/16 06/07/16 06/07/16 14:35 15:17 19:00 19:05 Temp 97.7 98.0 97.7 98.0 Pulse 102 99 Resp 18 16 B/P 126/81 147/83 Pulse Ox 92 93 O2 Delivery Room Air Room Air Room Air Room Air 06/07/16 06/07/16 06/07/16 06/07/16 19:36 20:30 21:28 22:58 Temp 98.2 98.2 Pulse 109 Resp 16 B/P 136/84 Pulse Ox 95 95 95 94 O2 Delivery Room Air Room Air Room Air Room Air 06/08/16 06/08/16 06/08/16 06/08/16 02:34 07:00 07:52 08:00 Temp 97.6 98.4 97.6 98.4 Pulse 98 88 Resp 19 B/P 131/79 145/81 Pulse Ox 93 97 97 O2 Delivery Room Air Room Air Room Air Room Air O2 Flow Rate 2.0 Intake and Output 06/07/16 06/07/16 06/08/16 15:00 23:00 07:00 Intake Total 390 ml 180 ml 360 ml Balance 390 ml 180 ml 360 ml MARCEL ENGLISH III DO Jun 08, 2016 11:46
[2016-06-08 15:00] VITALS: BP 107/72
[2016-06-08] MEDS ORDERED: IOHEXOL 240 MG/ML 50ML VIAL. PO ONE (15:15)
[2016-06-08] MEDS: HYDROCODONE/APAP 5/325MG TABLET. PO PRN (17:27)
[2016-06-08 19:00] VITALS: BP 126/79
[2016-06-08 23:00] VITALS: BP 123/79
[2016-06-09] VITALS (20 sets, daily range): BP systolic 104–143; BP diastolic 58–85
[2016-06-09] MEDS: IV NORMAL SALINE 1000ML BAG 1,000 ML IV SCH ×2 (01:05→20:11)
[2016-06-09 04:52] LABS: CALCIUM 8.4 mg/dL (8.5-10.1); CREATININE 1.9 mg/dL (0.6-1.0); POTASSIUM 3.5 mmol/L (3.5-5.1)
[2016-06-09 05:51] LABS: BASO # 0.1 x10^3/uL (0.0-0.2); BASO % 1 % (0-3); EOS % 4 % (0-3); HEMATOCRIT 23.8 % (36.0-47.0); HEMOGLOBIN 8.1 g/dL (12.0-15.5); LYMPH # 1.6 x10^3/uL (1.0-4.8); LYMPH % 18 % (24-48); MEAN CORPUSCULAR HEMOGLOBIN 32 pg (25-35); MEAN CORPUSCULAR HGB CONC 34 g/dL (31-37); MEAN CORPUSCULAR VOLUME 95 fL (79-100); MONO % 21 % (0-9); NEUT % 57 % (31-73); PLATELET COUNT 50 x10^3/uL (140-400); RED CELL DISTRIBUTION WIDTH 19.5 % (11.5-14.5); WHITE BLOOD COUNT 8.9 x10^3/uL (4.0-11.0)
[2016-06-09] MEDS: IPRATRPIUM/ALBUTEROL 0.5/2.5MG 3 ML NEBU. NEB SCH ×4 (07:12→21:10)
[2016-06-09] MEDS: PANTOPRAZOLE 40 MG TABLET. PO SCH (07:30)
--- NOTE | 2016-06-09 08:54 | RAD ---
CT of the chest, abdomen and pelvis without contrast, 06/08/2016: History: Possible lymphoma, cytopenia, renal failure Multidetector CT imaging was performed without IV contrast in this patient with known renal insufficiency. Oral contrast material was given for GI tract opacification. There is moderate calcific plaquing of the thoracic aorta without evidence of aneurysm. Coronary artery calcifications are present. The heart is not enlarged. No mediastinal adenopathy is seen. There is a small left pleural effusion with moderate atelectasis in the left base. There is a tiny right pleural effusion with minimal right basilar atelectasis. There are linear infiltrate patchy groundglass opacities in the periphery of both lungs suggesting mild fibrosis. In the lateral lingular region on the left there is a cluster of small nodular opacities the largest of which measures approximately 6 mm. The hepatic contour is irregular compatible with the history of cirrhosis. No hepatic mass is evident. The gallbladder is surgically absent. There is a moderate volume of ascites in the abdomen and pelvis. There is generalized streaky edema/congestion in the mesentery. No pancreatic abnormality is detected. The spleen is not enlarged. The kidneys show no evidence of obstruction. Moderate aortoiliac calcific plaquing is present without evidence of aneurysm. No abdominal or pelvic adenopathy is seen. The uterus is unremarkable. The bowel loops are not dilated. No free air is evident in the abdomen or pelvis. There is moderate streaky increased density in the subcutaneous soft tissues, most severe in the flank and hip regions. Moderate scattered multilevel hypertrophic degenerative changes are present in the spine. IMPRESSION: 1. Hepatic cirrhosis with mesenteric congestion and a moderate volume of ascites. Similar findings were present on the study of 01/28/2016. 2. Small bilateral pleural effusions and basilar atelectasis, left greater than right. 3. Mild peripheral opacities in the lungs, probably due to fibrosis. 4. Tiny nodular opacities in the lateral lingular region on the left may be due to active inflammation or scarring. A neoplastic etiology cannot be excluded. 5. Coronary artery disease. 6. Anasarca PQRS Compliance Statement: One or more of the following individualized dose reduction techniques were utilized for this examination: 1. Automated exposure control 2. Adjustment of the mA and/or kV according to patient size 3. Use of iterative reconstruction technique
[2016-06-09] MEDS: RIFAXIMIN 550 MG TABLET PO SCH ×2 (09:00→20:08)
[2016-06-09] MEDS: LACTULOSE 20 GM/30 ML SOLUTION. PO SCH ×2 (09:00→20:09)
[2016-06-09] MEDS: MAGNESIUM OXIDE 400 MG TABLET PO SCH (09:00)
[2016-06-09] MEDS ORDERED: LIDOCAINE 1% / SOD BICARB 8.4% 20 ML VIAL. IJ ONE ×2 (09:54→15:15)
--- NOTE | 2016-06-09 10:11 | PDOC ---
Subjective: Subjective: Onc f/u- Cold agglutinins, anemia, thrombocytopenia Pt has noted bruising over her left abdomen. No pain. Bruising over port as well. No SOB, CP, abd pain. Objective: Vital Signs: Vital Signs Date Time Temp Pulse Resp B/P Pulse Ox O2 Delivery O2 Flow Rate FiO2 06/09/16 07:12 Room Air 06/09/16 07:00 97.9 98 19 118/76 94 97.9 06/08/16 18:13 2.0 Physical Exam: Heart: Regular rate Extremities: No edema General: Alert, Oriented X3, Cooperative, No acute distress Lungs: Other (no resp distress) Psych/Mental Status: Mental status NL, Mood NL Skin: Other (bruising on left flank, over HD catheter) Labs/Imaging: CBC stable Hapto now < 10 Heterophile and mycoplasma neg Daren + Assessment/Plan A/P: 71 yo F with: 1. 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 Bmbx neg for increase plasma cells, acute leuk, but lots of agglutinins. 2. Thrombocytopenia, plt now near 50 from 90 on admit with bruising on abdomen/ HD catheter site 3. Acute vs chronic kidney disease- renal following. Renal bx today. 4. Ho alcohol abuse up to admission per daughter; pt denies. Alcohol found on table prior to admit. 5. 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 Cirrhosis Cirrhosis certainly contributing to some cytopenias. CT scans neg for obvious malinancy/ lymphoma. Other infectious etiologies such as Mycoplasma and Mononucleosis neg. Consider underlying undiagnosed autoimmune disease as cause such as SLE. Steroids usually not helpful for cold agglutinin disease, immunosuppressants such as Rituxan/ cyclosporine sometimes used. Plan: - F/u pending final path from bmbx - F/u renal bx planned today - As clinically stable prefer to hold off on tx (Rituxan) for cold agglutination until official dx can be obtained, unless further worsening of anemia develops. NAVEED SEPULVEDA DO Jun 09, 2016 10:11
--- NOTE | 2016-06-09 10:28 | PDOC ---
PROGRESS NOTES Subjective Subjective No new complaints. Objective Objective Vital Signs Date Time Temp Pulse Resp B/P Pulse Ox O2 Delivery O2 Flow Rate FiO2 06/09/16 07:12 Room Air 06/09/16 07:00 97.9 98 19 118/76 94 97.9 06/08/16 18:13 2.0 Intake and Output 06/09/16 07:00 Intake Total 1440 ml Balance 1440 ml Intake Oral 480 ml IV Total 960 ml # Voids 8 # Bowel Movements 8 Physical Exam Physical Exam She is awake and she is getting up and walking with roller walker under supervision. Assessment Assessment Problems Medical Problems: (1) Altered mental status Status: Acute (2) Hyperammonemia Status: Acute Plan Plan of Care To SNF or assisted living facility when medically stable. Comment Review of Relevant I have reviewed the following items amy (where applicable) has been applied. Labs Laboratory Tests Test 06/08/16 04:05 06/09/16 04:05 White Blood Count 7.0x10^3/uL (4.0-11.0) 8.9x10^3/uL (4.0-11.0) Red Blood Count 2.60x10^6/uL (3.50-5.40) 2.50x10^6/uL (3.50-5.40) Hemoglobin 8.4g/dL (12.0-15.5) 8.1g/dL (12.0-15.5) Hematocrit 25.0% (36.0-47.0) 23.8% (36.0-47.0) Mean Corpuscular Volume 96fL (79-100) 95fL (79-100) Mean Corpuscular Hemoglobin 32pg (25-35) 32pg (25-35) Mean Corpuscular Hemoglobin Concent 34g/dL (31-37) 34g/dL (31-37) Red Cell Distribution Width 19.2% (11.5-14.5) 19.5% (11.5-14.5) Platelet Count 50x10^3/uL (140-400) 50x10^3/uL (140-400) Neutrophils (%) (Auto) 59% (31-73) 57% (31-73) Lymphocytes (%) (Auto) 19% (24-48) 18% (24-48) Monocytes (%) (Auto) 17% (0-9) 21% (0-9) Eosinophils (%) (Auto) 5% (0-3) 4% (0-3) Basophils (%) (Auto) 1% (0-3) 1% (0-3) Neutrophils # (Auto) 4.2x10^3uL (1.8-7.7) 5.1x10^3uL (1.8-7.7) Lymphocytes # (Auto) 1.3x10^3/uL (1.0-4.8) 1.6x10^3/uL (1.0-4.8) Monocytes # (Auto) 1.2x10^3/uL (0.0-1.1) 1.9x10^3/uL (0.0-1.1) Eosinophils # (Auto) 0.3x10^3/uL (0.0-0.7) 0.4x10^3/uL (0.0-0.7) Basophils # (Auto) 0.0x10^3/uL (0.0-0.2) 0.1x10^3/uL (0.0-0.2) Haptoglobin <10mg/dL (34-200) Prothrombin Time 16.4SEC (11.7-14.0) Prothromb Time International Ratio 1.4 (0.8-1.1) Sodium Level 135mmol/L (136-145) 137mmol/L (136-145) Potassium Level 4.1mmol/L (3.5-5.1) 3.5mmol/L (3.5-5.1) Chloride Level 100mmol/L (98-107) 101mmol/L (98-107) Carbon Dioxide Level 25mmol/L (21-32) 28mmol/L (21-32) Anion Gap 10 (6-14) 8 (6-14) Blood Urea Nitrogen 15mg/dL (7-20) 6mg/dL (7-20) Creatinine 2.9mg/dL (0.6-1.0) 1.9mg/dL (0.6-1.0) Estimated GFR (Cockcroft-Gault) 16.0 26.0 Glucose Level 107mg/dL (70-99) 98mg/dL (70-99) Calcium Level 8.9mg/dL (8.5-10.1) 8.4mg/dL (8.5-10.1) Phosphorus Level 3.2mg/dL (2.6-4.7) Ammonia 36mcmol/L (11-34) 55mcmol/L (11-34) Albumin 2.1g/dL (3.4-5.0) Heterophil Agglutinins Negative (NEGATIVE) Mycoplasma Serology (LAB) Negative (NEGATIVE) Laboratory Tests Test 06/09/16 04:05 White Blood Count 8.9x10^3/uL (4.0-11.0) Red Blood Count 2.50x10^6/uL (3.50-5.40) Hemoglobin 8.1g/dL (12.0-15.5) Hematocrit 23.8% (36.0-47.0) Mean Corpuscular Volume 95fL (79-100) Mean Corpuscular Hemoglobin 32pg (25-35) Mean Corpuscular Hemoglobin Concent 34g/dL (31-37) Red Cell Distribution Width 19.5% (11.5-14.5) Platelet Count 50x10^3/uL (140-400) Neutrophils (%) (Auto) 57% (31-73) Lymphocytes (%) (Auto) 18% (24-48) Monocytes (%) (Auto) 21% (0-9) Eosinophils (%) (Auto) 4% (0-3) Basophils (%) (Auto) 1% (0-3) Neutrophils # (Auto) 5.1x10^3uL (1.8-7.7) Lymphocytes # (Auto) 1.6x10^3/uL (1.0-4.8) Monocytes # (Auto) 1.9x10^3/uL (0.0-1.1) Eosinophils # (Auto) 0.4x10^3/uL (0.0-0.7) Basophils # (Auto) 0.1x10^3/uL (0.0-0.2) Sodium Level 137mmol/L (136-145) Potassium Level 3.5mmol/L (3.5-5.1) Chloride Level 101mmol/L (98-107) Carbon Dioxide Level 28mmol/L (21-32) Anion Gap 8 (6-14) Blood Urea Nitrogen 6mg/dL (7-20) Creatinine 1.9mg/dL (0.6-1.0) Estimated GFR (Cockcroft-Gault) 26.0 Glucose Level 98mg/dL (70-99) Calcium Level 8.4mg/dL (8.5-10.1) Ammonia 55mcmol/L (11-34) Microbiology 05/28/16 Blood Culture - Final, Complete NO GROWTH AFTER 5 DAYS Medications Current Medications Sodium Chloride (Iv Sodium Chloride 0.9% 1000ml Bag) 1,000 ml @ 1,000 mls/hr 1X ONCE IV Last administered on 05/28/16 16:07; Start 05/28/16 at 15:45; Stop 05/28/16 at 16:44; Status DC Ondansetron HCl 4 mg 4 mg PRN Q8HRS PRN IV NAUSEA/VOMITING; Start 05/28/16 at 17 :15; Stop 05/29/16 at 09:22; Status DC Sodium Chloride (Iv Sodium Chloride 0.9% 1000ml Bag) 1,000 ml @ 125 mls/hr Q8H IV ; Start 05/28/16 at 17:07; Stop 05/28/16 at 18:38; Status DC Lactulose 20 gm 20 gm PRN BID PRN PO CONSTIPATION; Start 05/28/16 at 18:45; Stop 05/29/16 at 10:00; Status DC Sodium Chloride (Iv Sodium Chloride 0.9% 1000ml Bag) 1,000 ml @ 100 mls/hr Q10H IV Last administered on 06/01/16 01:26; Start 05/28/16 at 19:00; Stop at 15:33; Status DC Acetaminophen (Tylenol) 325 mg PRN Q6HRS PRN PO MILD PAIN / TEMP Last administered on 06/05/16 17:40; Start 05/28/16 at 19:00 Acetaminophen/ Hydrocodone Bitart (Lortab 5/325) 1 tab PRN Q6HRS PRN PO MODERATE TO SEVERE PAIN Last administered on 06/08/16 17:27; Start 05/28/16 at 19:00 Hydralazine HCl (Apresoline) 10 mg PRN Q4HRS PRN IVP ELEVATED BP, SEE COMMENTS ; Start 05/28/16 at 19:00 Ondansetron HCl (Zofran) 4 mg PRN Q8HRS PRN IV NAUSEA/VOMITING Last administered on 05/30/16 03:36; Start 05/28/16 at 19:00 Albuterol Sulfate (Ventolin Neb Soln) 2.5 mg PRN Q4HRS PRN NEB SHORTNESS OF BREATH; Start 05/28/16 at 19:00 Lactulose 20 gm BID PO Last administered on 05/30/16 08:29; Start 05/29/16 at 10 :00; Stop 05/30/16 at 14:43; Status DC Pantoprazole Sodium (Protonix) 40 mg DAILYAC PO Last administered on 06/07/16 09:30; Start 05/29/16 at 10:00 Lactulose 20 gm TID PO ; Start 05/31/16 at 09:00; Stop 05/31/16 at 09:00; Status DC Lactulose 20 gm TID PO Last administered on 05/31/16 08:33; Start 05/30/16 at 14 :45; Stop 05/31/16 at 09:45; Status DC Rifaximin (Xifaxan) 550 mg Q12HR PO Last administered on 06/08/16 20:37; Start 05/30/16 at 15:00 Lactulose 20 gm 20 gm [id number] PO Last administered on 05/31/16 14:59; Start at 14:00; Stop 06/02/16 at 10:11; Status DC Magnesium Sulfate/ Dextrose 50 ml @ 25 mls/hr PRN DAILY PRN IV for Mag < 1.7 on am labs; Start 06/01/16 at 15:30 Sodium Bicarbonate/ Sodium Chloride (Iv Sodium Chloride 0.45%) 1,075 ml @ 100 mls/hr [id number] IV Last administered on 06/02/16 11:51; Start 06/01/16 at 15:45; Stop 06/02/16 at 18:18; Status DC Potassium Chloride (Klor-Con) 40 meq 1X ONCE PO Last administered on 06/02/16 08:39; Start 06/02/16 at 09:00; Stop 06/02/16 at 09:01; Status DC Lactulose 20 gm PRN BID PRN PO CONSTIPATION; Start 06/03/16 at 09:00; Stop at 12:00; Status DC Lactulose 20 gm BID PO Last administered on 06/02/16 11:49; Start 06/02/16 at 12 :00; Stop 06/03/16 at 10:38; Status DC Methylprednisolone Acetate (Depo-Medrol 40mg Vial) 40 mg 1X ONCE IM Last administered on 06/02/16 16:46; Start 06/02/16 at 16:30; Stop 06/02/16 at 16:31; Status DC Bupivacaine HCl (Sensorcaine-Mpf 0.25%) 10 ml 1X ONCE IJ Last administered on 06/02/16 16:46; Start 06/02/16 at 16:30; Stop 06/02/16 at 16:31; Status DC Methylprednisolone Acetate 40 mg 40 mg 1X ONCE IM Last administered on 16:45; Start 06/02/16 at 16:45; Stop 06/02/16 at 16:46; Status DC Sodium Bicarbonate/ Potassium Chloride/Sodium Chloride (Iv Sodium Chloride 0.45% ) 1,095 ml @ 100 mls/hr [id number] IV Last administered on 06/02/16 21:05; Start 06/02/16 at 18:30; Stop 06/03/16 at 05:26; Status DC Potassium Chloride 40 meq 40 meq 1X PRN PRN PO if repeat K < 3.7; Start at 18:15; Stop 06/03/16 at 05:00; Status DC Sodium Bicarbonate 75 meq/Sodium Chloride 1,075 ml @ 100 mls/hr [id number] IV Last administered on 06/04/16 03:30; Start 06/03/16 at 06:00; Stop 06/04/16 at 11: 39; Status DC Magnesium Sulfate/ Dextrose (Magnesium Sulfate PREMIX 4GM) 100 ml @ 25 mls/hr 1X ONCE IV Last administered on 06/03/16 10:10; Start 06/03/16 at 09:00; Stop 06/03/16 at 12:59; Status DC Magnesium Oxide (Magnesium Oxide) 400 mg DAILY PO Last administered on 09:30; Start 06/03/16 at 09:00 Lidocaine/Sodium Bicarbonate (Buffered Lidocaine 1%) 20 ml STK-MED ONCE IJ ; Start 06/03/16 at 10:23; Stop 06/03/16 at 10:24; Status DC Midazolam HCl (Versed) 5 mg STK-MED ONCE .ROUTE ; Start 06/03/16 at 10:24; Stop 06/03/16 at 10:25; Status DC Fentanyl Citrate (Fentanyl 5ml Vial) 250 mcg STK-MED ONCE .ROUTE ; Start at 10:24; Stop 06/03/16 at 10:25; Status DC Lidocaine/Sodium Bicarbonate (Buffered Lidocaine 1%) 20 ml 1X ONCE IJ Last administered on 06/03/16 10:57; Start 06/03/16 at 10:45; Stop 06/03/16 at 10:46; Status DC Midazolam HCl (Versed) 3 mg 1X ONCE IV Last administered on 06/03/16 10:58; Start 06/03/16 at 10:45; Stop 06/03/16 at 10:46; Status DC Fentanyl Citrate (Fentanyl 5ml Vial) 150 mcg 1X ONCE IV Last administered on 10:58; Start 06/03/16 at 10:45; Stop 06/03/16 at 10:46; Status DC Lactulose 20 gm DAILY PO Last administered on 06/04/16 09:02; Start 06/04/16 at 09:00; Stop 06/04/16 at 12:32; Status DC Albuterol/ Ipratropium (Duoneb) 3 ml RTQID NEB Last administered on 06/09/16 07:12; Start 06/03/16 at 20:00 Alprazolam (Xanax) 0.25 mg PRN Q8HRS PRN PO ANXIETY / AGITATION Last administered on 06/04/16 21:05; Start 06/04/16 at 10:15 Haloperidol Lactate (Haldol) 0.5 mg PRN Q6HRS PRN IVP AGITATION, 2ND CHOICE; Start 06/04/16 at 10:15 Lactulose 20 gm BID PO Last administered on 06/08/16 08:19; Start 06/04/16 at 21:00 Midazolam HCl (Versed) 2 mg STK-MED ONCE .ROUTE ; Start 06/04/16 at 12:35; Stop 06/04/16 at 12:36; Status DC Fentanyl Citrate 100 mcg 100 mcg STK-MED ONCE .ROUTE ; Start 06/04/16 at 12:35; Stop 06/04/16 at 12:36; Status DC Cefazolin Sodium (Ancef 1gm Ivpb For Omni) 50 ml @ As Directed STK-MED ONCE IV ; Start 06/04/16 at 12:35; Stop 06/04/16 at 12:36; Status DC Heparin Sodium (Porcine) 10,000 unit STK-MED ONCE .ROUTE ; Start 06/04/16 at 12: 37; Stop 06/04/16 at 12:38; Status DC Lidocaine/ Epinephrine 20 ml 20 ml STK-MED ONCE .ROUTE ; Start 06/04/16 at 12:37 ; Stop 06/04/16 at 12:38; Status DC Heparin Sodium/ Sodium Chloride 500 ml @ As Directed STK-MED ONCE .ROUTE ; Start 06/04/16 at 12:37; Stop 06/04/16 at 12:38; Status DC Heparin Sodium/ Sodium Chloride 1,000 unit 1X ONCE IART Last administered on 13:09; Start 06/04/16 at 13:15; Stop 06/04/16 at 13:16; Status DC Midazolam HCl (Versed) 2 mg 1X ONCE IV Last administered on 06/04/16 13:12; Start 06/04/16 at 13:15; Stop 06/04/16 at 13:16; Status DC Fentanyl Citrate 100 mcg 100 mcg 1X ONCE IV Last administered on 06/04/16 13: 12; Start 06/04/16 at 13:15; Stop 06/04/16 at 13:16; Status DC Cefazolin Sodium (Ancef 1gm Ivpb For Omni) 50 ml @ 100 mls/hr 1X ONCE IV Last administered on 06/04/16 13:13; Start 06/04/16 at 13:15; Stop 06/04/16 at 13: 44; Status DC Heparin Sodium (Porcine) 2,600 unit 1X ONCE INT CAT Last administered on 13:10; Start 06/04/16 at 13:15; Stop 06/04/16 at 13:16; Status DC Lidocaine/ Epinephrine 20 ml 20 ml 1X ONCE IJ Last administered on 3/9/17at 13 :11; Start 06/04/16 at 13:15; Stop 06/04/16 at 13:16; Status DC Sodium Chloride (Iv Sodium Chloride 0.9% 1000ml Bag) 1,000 ml @ 1,000 mls/hr Q1H PRN IV hypotension; Start 06/04/16 at 18:12; Stop 06/05/16 at 00:11; Status DC Sodium Chloride (Normal Saline Flush) 10 ml 1X PRN PRN IV AP catheter pack; Start 06/04/16 at 18:15; Stop 06/05/16 at 18:14; Status Cancel Sodium Chloride (Normal Saline Flush) 10 ml 1X PRN PRN IV [employer] catheter pack; Start 06/04/16 at 18:15; Stop 06/05/16 at 18:14; Status Cancel Info (PHARMACY MONITORING -- do not chart) 1 each PRN DAILY PRN MC SEE COMMENTS ; Start 06/04/16 at 18:15; Status UNV Info (PHARMACY MONITORING -- do not chart) 1 each PRN DAILY PRN MC SEE COMMENTS ; Start 06/04/16 at 18:15; Stop 06/08/16 at 17:45; Status DC Albuterol/ Ipratropium 3 ml 3 ml 1X ONCE NEB Last administered on 06/05/16 00 :29; Start 06/05/16 at 00:15; Stop 06/05/16 at 00:16; Status DC Sodium Chloride 1,000 ml @ 1,000 mls/hr Q1H PRN IV hypotension; Start 06/05/16 at 11:56; Stop 06/05/16 at 17:55; Status DC Albumin Human (Albuminar) 200 ml @ 200 mls/hr 1X PRN PRN IV Hypotension; Start 06/05/16 at 12:00; Stop 06/05/16 at 17:59; Status DC Acetaminophen (Tylenol) 500 mg 1X PRN PRN PO MILD PAIN / TEMP; Start 06/05/16 at 12:00; Stop 06/06/16 at 11:59; Status DC Diphenhydramine HCl (Benadryl) 25 mg 1X PRN PRN IV ITCHING; Start 06/05/16 at 12:00; Stop 06/06/16 at 11:59; Status DC Diphenhydramine HCl (Benadryl) 25 mg 1X PRN PRN IV ITCHING; Start 06/05/16 at 12:00; Stop 06/06/16 at 11:59; Status DC Sodium Chloride (Normal Saline Flush) 10 ml 1X PRN PRN IV AP catheter pack; Start 06/05/16 at 12:00; Stop 06/06/16 at 11:59; Status DC Sodium Chloride (Normal Saline Flush) 10 ml 1X PRN PRN IV [employer] catheter pack; Start 06/05/16 at 12:00; Stop 06/06/16 at 11:59; Status DC Info 1 each 1 each PRN DAILY PRN MC SEE COMMENTS; Start 06/05/16 at 12:00; Status UNV Magnesium Sulfate/ Dextrose (Magnesium Sulfate PREMIX 2GM) 50 ml @ 25 mls/hr 1X ONCE IV Last administered on 06/06/16 07:56; Start 06/06/16 at 06:45; Stop 06/06/16 at 08:44; Status DC Potassium Chloride 40 meq 40 meq 1X ONCE PO Last administered on 06/07/16 09: 31; Start 06/07/16 at 08:45; Stop 06/07/16 at 08:46; Status DC Sodium Chloride 1,000 ml @ 1,000 mls/hr Q1H PRN IV hypotension; Start 06/08/16 at 10:39; Stop 06/08/16 at 16:38; Status DC Sodium Chloride (Iv Sodium Chloride 0.9% 1000ml Bag) 1,000 ml @ 400 mls/hr Q2H30M PRN IV PATENCY; Start 06/08/16 at 10:39; Stop 06/08/16 at 22:38; Status DC Info 1 each 1 each PRN DAILY PRN MC SEE COMMENTS; Start 06/08/16 at 10:45 Sodium Chloride (Iv Sodium Chloride 0.9% 1000ml Bag) 1,000 ml @ 75 mls/hr [id number] IV Last administered on 06/09/16 01:05; Start 06/08/16 at 11:45 Iohexol (Omnipaque 240 Mg/ml) 50 ml 1X ONCE PO Last administered on 06/08/16 15:15; Start 06/08/16 at 15:15; Stop 06/08/16 at 15:16; Status DC Lidocaine/Sodium Bicarbonate (Buffered Lidocaine 1%) 20 ml [facility] ONCE IJ ; Start 06/09/16 at 09:54; Stop 06/09/16 at 09:55; Status DC Active Scripts Active Pantoprazole Sodium 40 Mg Tablet.dr 40 Mg PO DAILYAC 30 Days Reported Neomycin Sulfate 500 Mg Tablet 1 Tab PO BID Spironolactone 50 Mg Tablet 1 Tab PO DAILY Mag-Oxide (Magnesium Oxide) 400 Mg Tablet 2 Tab PO BID Vitamin D3 (Cholecalciferol (Vitamin D3)) 400 Unit Tablet 400 Unit PO BID Fish Oil Conc 1,000 mg Softgel (Gary-3/Dha/Epa/Fish Oil) 1,000 Mg Capsule 3, 000 Mg PO DAILY Multiple Vitamin (Multivitamin With Minerals) 1 Each Tablet 1 Each PO Corzide 40-5 Tablet (Nadolol/Bendroflumethiazide) 1 Each Tablet 0.5 Tab PO DAILY Coenzyme Q10 (Ubidecarenone) 100 Mg Capsule 100 Mg PO DAILY Calcium (Calcium Carbonate) 600 Mg Tablet 600 Mg PO BID Vitals/I & O Vital Sign - Last 24 Hours 06/08/16 06/08/16 06/08/16 06/08/16 11:00 12:10 15:00 15:14 Temp 97.3 98.0 97.3 98.0 Pulse 84 92 Resp 16 16 B/P 130/77 107/72 Pulse Ox 93 92 O2 Delivery Room Air Room Air Room Air Room Air 06/08/16 06/08/16 06/08/16 06/08/16 17:27 18:13 19:00 19:00 Temp 98.2 98.2 Pulse 103 Resp 18 20 20 B/P 126/79 Pulse Ox 92 92 92 O2 Delivery Room Air Room Air Room Air Room Air O2 Flow Rate 2.0 2.0 06/08/16 06/08/16 06/09/16 06/09/16 20:28 23:00 03:21 07:00 Temp 98.5 98.4 97.9 98.5 98.4 97.9 Pulse 106 97 98 Resp 20 20 19 B/P 123/79 125/82 118/76 Pulse Ox 93 91 92 94 O2 Delivery Room Air Room Air Room Air Room Air 06/09/16 07:12 O2 Delivery Room Air Intake and Output 06/08/16 06/08/16 06/09/16 15:00 23:00 07:00 Intake Total 360 ml 1080 ml Balance 360 ml 1080 ml CESARIO ABARCA MD Jun 09, 2016 10:28
--- NOTE | 2016-06-09 11:20 | PDOC ---
Renal-Progress Notes Subjective Notes Notes NONE History of Present Illness Hx of present illness STABLE Vitals Vitals Vital Signs Date Time Temp Pulse Resp B/P Pulse Ox O2 Delivery O2 Flow Rate FiO2 06/09/16 11:05 Room Air 06/09/16 07:00 97.9 98 19 118/76 94 97.9 06/08/16 18:13 2.0 Weight Weight [ ] I.O. Intake and Output Intake and Output 06/09/16 07:00 Intake Total 1440 ml Balance 1440 ml Intake Oral 480 ml IV Total 960 ml # Voids 8 # Bowel Movements 8 Labs Labs Laboratory Tests Test 06/09/16 04:05 White Blood Count 8.9x10^3/uL (4.0-11.0) Red Blood Count 2.50x10^6/uL (3.50-5.40) Hemoglobin 8.1g/dL (12.0-15.5) Hematocrit 23.8% (36.0-47.0) Mean Corpuscular Volume 95fL (79-100) Mean Corpuscular Hemoglobin 32pg (25-35) Mean Corpuscular Hemoglobin Concent 34g/dL (31-37) Red Cell Distribution Width 19.5% (11.5-14.5) Platelet Count 50x10^3/uL (140-400) Neutrophils (%) (Auto) 57% (31-73) Lymphocytes (%) (Auto) 18% (24-48) Monocytes (%) (Auto) 21% (0-9) Eosinophils (%) (Auto) 4% (0-3) Basophils (%) (Auto) 1% (0-3) Neutrophils # (Auto) 5.1x10^3uL (1.8-7.7) Lymphocytes # (Auto) 1.6x10^3/uL (1.0-4.8) Monocytes # (Auto) 1.9x10^3/uL (0.0-1.1) Eosinophils # (Auto) 0.4x10^3/uL (0.0-0.7) Basophils # (Auto) 0.1x10^3/uL (0.0-0.2) Sodium Level 137mmol/L (136-145) Potassium Level 3.5mmol/L (3.5-5.1) Chloride Level 101mmol/L (98-107) Carbon Dioxide Level 28mmol/L (21-32) Anion Gap 8 (6-14) Blood Urea Nitrogen 6mg/dL (7-20) Creatinine 1.9mg/dL (0.6-1.0) Estimated GFR (Cockcroft-Gault) 26.0 Glucose Level 98mg/dL (70-99) Calcium Level 8.4mg/dL (8.5-10.1) Ammonia 55mcmol/L (11-34) Micro Micro Microbiology 05/28/16 Blood Culture - Final, Complete NO GROWTH AFTER 5 DAYS Review of Systems Constitutional: yes: alert, weakness Physical Exam General Appearance: no apparent distress, thin, other Respiratory: bilateral CTA Heart: S1S2 Abdomen: soft, bowel sounds present Neurology: alert Assessment Assessment IMP [id number] ATN RATHER THAN ANY NEPHRITIS MET ENCEPHALOPATHY-BETTER CYTOPENIA COLD AGGLUTININS PLAN RENAL BX TODAY D/W IR HD TOMORROW IVF'S WILL FOLLOW D/W ATTENDING WILLIAM JORGE MD Jun 09, 2016 11:20
--- NOTE | 2016-06-09 11:23 | PDOC ---
PROGRESS NOTES Chief Complaint Chief Complaint CC- Altered mental status, hyperammonemia 1. Encephalopathy, possible metabolic, hepatic. 2. Acute kidney injury, ATN,myeloma? 3. Metabolic acidosis. 4. Thrombocytopenia 2/2 cirrhosis likely 5. Anemia, chronic. 6. Hyperbilirubinemia. 7. Alcoholism. 8. high INR 2/2 CIrrhosis likely 9, LEFT thigh pain, 2/2 OA? 10. hypomagnesemia History of Present Illness History of Present Illness Patient was awake, alert and in the bed, she is still on lactulose, confusion is on and off, no knee pain complains, waiting for her renal biopsy procedure, Dr. Ortiz was in the room and plan of care discussed with him along with pt. Vitals Vitals Vital Signs Date Time Temp Pulse Resp B/P Pulse Ox O2 Delivery O2 Flow Rate FiO2 06/09/16 11:05 Room Air 06/09/16 07:00 97.9 98 19 118/76 94 97.9 06/08/16 18:13 2.0 Physical Exam Physical Exam aaox2 to person and place only General: Alert, Cooperative, No acute distress Heart: Regular rate Lungs: Clear Abdomen: Soft, No tenderness, Other (no ascites) Extremities: No edema Skin: Other (bruising on left flank, over HD catheter) Labs LABS Laboratory Tests Test 06/09/16 04:05 White Blood Count 8.9x10^3/uL (4.0-11.0) Red Blood Count 2.50x10^6/uL (3.50-5.40) Hemoglobin 8.1g/dL (12.0-15.5) Hematocrit 23.8% (36.0-47.0) Mean Corpuscular Volume 95fL (79-100) Mean Corpuscular Hemoglobin 32pg (25-35) Mean Corpuscular Hemoglobin Concent 34g/dL (31-37) Red Cell Distribution Width 19.5% (11.5-14.5) Platelet Count 50x10^3/uL (140-400) Neutrophils (%) (Auto) 57% (31-73) Lymphocytes (%) (Auto) 18% (24-48) Monocytes (%) (Auto) 21% (0-9) Eosinophils (%) (Auto) 4% (0-3) Basophils (%) (Auto) 1% (0-3) Neutrophils # (Auto) 5.1x10^3uL (1.8-7.7) Lymphocytes # (Auto) 1.6x10^3/uL (1.0-4.8) Monocytes # (Auto) 1.9x10^3/uL (0.0-1.1) Eosinophils # (Auto) 0.4x10^3/uL (0.0-0.7) Basophils # (Auto) 0.1x10^3/uL (0.0-0.2) Sodium Level 137mmol/L (136-145) Potassium Level 3.5mmol/L (3.5-5.1) Chloride Level 101mmol/L (98-107) Carbon Dioxide Level 28mmol/L (21-32) Anion Gap 8 (6-14) Blood Urea Nitrogen 6mg/dL (7-20) Creatinine 1.9mg/dL (0.6-1.0) Estimated GFR (Cockcroft-Gault) 26.0 Glucose Level 98mg/dL (70-99) Calcium Level 8.4mg/dL (8.5-10.1) Ammonia 55mcmol/L (11-34) Review of Systems Review of Systems Alert, awake, no SOB, no CP, no ascites, breathing at room air. Assessment and Plan Assessmemt and Plan Assessment: 1. Encephalopathy, possible metabolic, hepatic. 2. Acute kidney injury, ATN,myeloma? 3. Metabolic acidosis. 4. Thrombocytopenia 2/2 cirrhosis likely 5. Anemia, chronic. 6. Hyperbilirubinemia. 7. Alcoholism. 8. high INR 2/2 CIrrhosis likely 9, LEFT thigh pain, 2/2 OA? 10. hypomagnesemia Plan: - Agree with Renal and Heme onc plan of care - Renal biopsy probably today - Probable discharge home tomorrow after renal biopsy - Continue Rifaxin and lactulose to keep BM 2-3 times per day. - Recheck routine labs in AM - PT/OT - D/w Dr. Ortiz - Appreciate subspecialities inputs and recommendation Problems Medical Problems: (1) Altered mental status Status: Acute (2) Hyperammonemia Status: Acute Problems: Comment Review of Relevant I have reviewed the following items amy (where applicable) has been applied. Labs Laboratory Tests Test 06/08/16 04:05 06/09/16 04:05 White Blood Count 7.0x10^3/uL (4.0-11.0) 8.9x10^3/uL (4.0-11.0) Red Blood Count 2.60x10^6/uL (3.50-5.40) 2.50x10^6/uL (3.50-5.40) Hemoglobin 8.4g/dL (12.0-15.5) 8.1g/dL (12.0-15.5) Hematocrit 25.0% (36.0-47.0) 23.8% (36.0-47.0) Mean Corpuscular Volume 96fL (79-100) 95fL (79-100) Mean Corpuscular Hemoglobin 32pg (25-35) 32pg (25-35) Mean Corpuscular Hemoglobin Concent 34g/dL (31-37) 34g/dL (31-37) Red Cell Distribution Width 19.2% (11.5-14.5) 19.5% (11.5-14.5) Platelet Count 50x10^3/uL (140-400) 50x10^3/uL (140-400) Neutrophils (%) (Auto) 59% (31-73) 57% (31-73) Lymphocytes (%) (Auto) 19% (24-48) 18% (24-48) Monocytes (%) (Auto) 17% (0-9) 21% (0-9) Eosinophils (%) (Auto) 5% (0-3) 4% (0-3) Basophils (%) (Auto) 1% (0-3) 1% (0-3) Neutrophils # (Auto) 4.2x10^3uL (1.8-7.7) 5.1x10^3uL (1.8-7.7) Lymphocytes # (Auto) 1.3x10^3/uL (1.0-4.8) 1.6x10^3/uL (1.0-4.8) Monocytes # (Auto) 1.2x10^3/uL (0.0-1.1) 1.9x10^3/uL (0.0-1.1) Eosinophils # (Auto) 0.3x10^3/uL (0.0-0.7) 0.4x10^3/uL (0.0-0.7) Basophils # (Auto) 0.0x10^3/uL (0.0-0.2) 0.1x10^3/uL (0.0-0.2) Haptoglobin <10mg/dL (34-200) Prothrombin Time 16.4SEC (11.7-14.0) Prothromb Time International Ratio 1.4 (0.8-1.1) Sodium Level 135mmol/L (136-145) 137mmol/L (136-145) Potassium Level 4.1mmol/L (3.5-5.1) 3.5mmol/L (3.5-5.1) Chloride Level 100mmol/L (98-107) 101mmol/L (98-107) Carbon Dioxide Level 25mmol/L (21-32) 28mmol/L (21-32) Anion Gap 10 (6-14) 8 (6-14) Blood Urea Nitrogen 15mg/dL (7-20) 6mg/dL (7-20) Creatinine 2.9mg/dL (0.6-1.0) 1.9mg/dL (0.6-1.0) Estimated GFR (Cockcroft-Gault) 16.0 26.0 Glucose Level 107mg/dL (70-99) 98mg/dL (70-99) Calcium Level 8.9mg/dL (8.5-10.1) 8.4mg/dL (8.5-10.1) Phosphorus Level 3.2mg/dL (2.6-4.7) Ammonia 36mcmol/L (11-34) 55mcmol/L (11-34) Albumin 2.1g/dL (3.4-5.0) Heterophil Agglutinins Negative (NEGATIVE) Mycoplasma Serology (LAB) Negative (NEGATIVE) Laboratory Tests Test 06/09/16 04:05 White Blood Count 8.9x10^3/uL (4.0-11.0) Red Blood Count 2.50x10^6/uL (3.50-5.40) Hemoglobin 8.1g/dL (12.0-15.5) Hematocrit 23.8% (36.0-47.0) Mean Corpuscular Volume 95fL (79-100) Mean Corpuscular Hemoglobin 32pg (25-35) Mean Corpuscular Hemoglobin Concent 34g/dL (31-37) Red Cell Distribution Width 19.5% (11.5-14.5) Platelet Count 50x10^3/uL (140-400) Neutrophils (%) (Auto) 57% (31-73) Lymphocytes (%) (Auto) 18% (24-48) Monocytes (%) (Auto) 21% (0-9) Eosinophils (%) (Auto) 4% (0-3) Basophils (%) (Auto) 1% (0-3) Neutrophils # (Auto) 5.1x10^3uL (1.8-7.7) Lymphocytes # (Auto) 1.6x10^3/uL (1.0-4.8) Monocytes # (Auto) 1.9x10^3/uL (0.0-1.1) Eosinophils # (Auto) 0.4x10^3/uL (0.0-0.7) Basophils # (Auto) 0.1x10^3/uL (0.0-0.2) Sodium Level 137mmol/L (136-145) Potassium Level 3.5mmol/L (3.5-5.1) Chloride Level 101mmol/L (98-107) Carbon Dioxide Level 28mmol/L (21-32) Anion Gap 8 (6-14) Blood Urea Nitrogen 6mg/dL (7-20) Creatinine 1.9mg/dL (0.6-1.0) Estimated GFR (Cockcroft-Gault) 26.0 Glucose Level 98mg/dL (70-99) Calcium Level 8.4mg/dL (8.5-10.1) Ammonia 55mcmol/L (11-34) Microbiology 05/28/16 Blood Culture - Final, Complete NO GROWTH AFTER 5 DAYS Medications Current Medications Sodium Chloride (Iv Sodium Chloride 0.9% 1000ml Bag) 1,000 ml @ 1,000 mls/hr 1X ONCE IV Last administered on 05/28/16t 16:07; Start 05/28/16 at 15:45; Stop 05/28/16 at 16:44; Status DC Ondansetron HCl 4 mg 4 mg PRN Q8HRS PRN IV NAUSEA/VOMITING; Start 05/28/16 at 17 :15; Stop 05/29/16 at 09:22; Status DC Sodium Chloride (Iv Sodium Chloride 0.9% 1000ml Bag) 1,000 ml @ 125 mls/hr Q8H IV ; Start 05/28/16 at 17:07; Stop 05/28/16 at 18:38; Status DC Lactulose 20 gm 20 gm PRN BID PRN PO CONSTIPATION; Start 05/28/16 at 18:45; Stop 05/29/16 at 10:00; Status DC Sodium Chloride (Iv Sodium Chloride 0.9% 1000ml Bag) 1,000 ml @ 100 mls/hr Q10H IV Last administered on 06/01/16 01:26; Start 05/28/16 at 19:00; Stop at 15:33; Status DC Acetaminophen (Tylenol) 325 mg PRN Q6HRS PRN PO MILD PAIN / TEMP Last administered on 06/05/16 17:40; Start 05/28/16 at 19:00 Acetaminophen/ Hydrocodone Bitart (Lortab 5/325) 1 tab PRN Q6HRS PRN PO MODERATE TO SEVERE PAIN Last administered on 06/08/16 17:27; Start 05/28/16 at 19:00 Hydralazine HCl (Apresoline) 10 mg PRN Q4HRS PRN IVP ELEVATED BP, SEE COMMENTS ; Start 05/28/16 at 19:00 Ondansetron HCl (Zofran) 4 mg PRN Q8HRS PRN IV NAUSEA/VOMITING Last administered on 05/30/16 03:36; Start 05/28/16 at 19:00 Albuterol Sulfate (Ventolin Neb Soln) 2.5 mg PRN Q4HRS PRN NEB SHORTNESS OF BREATH; Start 05/28/16 at 19:00 Lactulose 20 gm BID PO Last administered on 05/30/16 08:29; Start 05/29/16 at 10 :00; Stop 05/30/16 at 14:43; Status DC Pantoprazole Sodium (Protonix) 40 mg DAILYAC PO Last administered on 06/07/16 09:30; Start 05/29/16 at 10:00 Lactulose 20 gm TID PO ; Start 05/31/16 at 09:00; Stop 05/31/16 at 09:00; Status DC Lactulose 20 gm TID PO Last administered on 05/31/16 08:33; Start 05/30/16 at 14 :45; Stop 05/31/16 at 09:45; Status DC Rifaximin (Xifaxan) 550 mg Q12HR PO Last administered on 06/08/16 20:37; Start 05/30/16 at 15:00 Lactulose 20 gm 20 gm [id number] PO Last administered on 05/31/16 14:59; Start at 14:00; Stop 06/02/16 at 10:11; Status DC Magnesium Sulfate/ Dextrose 50 ml @ 25 mls/hr PRN DAILY PRN IV for Mag < 1.7 on am labs; Start 06/01/16 at 15:30 Sodium Bicarbonate/ Sodium Chloride (Iv Sodium Chloride 0.45%) 1,075 ml @ 100 mls/hr [id number] IV Last administered on 06/02/16 11:51; Start 06/01/16 at 15:45; Stop 06/02/16 at 18:18; Status DC Potassium Chloride (Klor-Con) 40 meq 1X ONCE PO Last administered on 06/02/16 08:39; Start 06/02/16 at 09:00; Stop 06/02/16 at 09:01; Status DC Lactulose 20 gm PRN BID PRN PO CONSTIPATION; Start 06/03/16 at 09:00; Stop at 12:00; Status DC Lactulose 20 gm BID PO Last administered on 06/02/16 11:49; Start 06/02/16 at 12 :00; Stop 06/03/16 at 10:38; Status DC Methylprednisolone Acetate (Depo-Medrol 40mg Vial) 40 mg 1X ONCE IM Last administered on 06/02/16 16:46; Start 06/02/16 at 16:30; Stop 06/02/16 at 16:31; Status DC Bupivacaine HCl (Sensorcaine-Mpf 0.25%) 10 ml 1X ONCE IJ Last administered on 06/02/16 16:46; Start 06/02/16 at 16:30; Stop 06/02/16 at 16:31; Status DC Methylprednisolone Acetate 40 mg 40 mg 1X ONCE IM Last administered on 16:45; Start 06/02/16 at 16:45; Stop 06/02/16 at 16:46; Status DC Sodium Bicarbonate/ Potassium Chloride/Sodium Chloride (Iv Sodium Chloride 0.45% ) 1,095 ml @ 100 mls/hr [id number] IV Last administered on 06/02/16 21:05; Start 06/02/16 at 18:30; Stop 06/03/16 at 05:26; Status DC Potassium Chloride 40 meq 40 meq 1X PRN PRN PO if repeat K < 3.7; Start at 18:15; Stop 06/03/16 at 05:00; Status DC Sodium Bicarbonate 75 meq/Sodium Chloride 1,075 ml @ 100 mls/hr [id number] IV Last administered on 06/04/16 03:30; Start 06/03/16 at 06:00; Stop 06/04/16 at 11: 39; Status DC Magnesium Sulfate/ Dextrose (Magnesium Sulfate PREMIX 4GM) 100 ml @ 25 mls/hr 1X ONCE IV Last administered on 06/03/16 10:10; Start 06/03/16 at 09:00; Stop 06/03/16 at 12:59; Status DC Magnesium Oxide (Magnesium Oxide) 400 mg DAILY PO Last administered on 09:30; Start 06/03/16 at 09:00 Lidocaine/Sodium Bicarbonate (Buffered Lidocaine 1%) 20 ml STK-MED ONCE IJ ; Start 06/03/16 at 10:23; Stop 06/03/16 at 10:24; Status DC Midazolam HCl (Versed) 5 mg STK-MED ONCE .ROUTE ; Start 06/03/16 at 10:24; Stop 06/03/16 at 10:25; Status DC Fentanyl Citrate (Fentanyl 5ml Vial) 250 mcg STK-MED ONCE .ROUTE ; Start at 10:24; Stop 06/03/16 at 10:25; Status DC Lidocaine/Sodium Bicarbonate (Buffered Lidocaine 1%) 20 ml 1X ONCE IJ Last administered on 06/03/16 10:57; Start 06/03/16 at 10:45; Stop 06/03/16 at 10:46; Status DC Midazolam HCl (Versed) 3 mg 1X ONCE IV Last administered on 3/8/17at 10:58; Start 06/03/16 at 10:45; Stop 06/03/16 at 10:46; Status DC Fentanyl Citrate (Fentanyl 5ml Vial) 150 mcg 1X ONCE IV Last administered on 10:58; Start 06/03/16 at 10:45; Stop 06/03/16 at 10:46; Status DC Lactulose 20 gm DAILY PO Last administered on 06/04/16 09:02; Start 06/04/16 at 09:00; Stop 06/04/16 at 12:32; Status DC Albuterol/ Ipratropium (Duoneb) 3 ml RTQID NEB Last administered on 06/09/16 11:04; Start 06/03/16 at 20:00 Alprazolam (Xanax) 0.25 mg PRN Q8HRS PRN PO ANXIETY / AGITATION Last administered on 06/04/16 21:05; Start 06/04/16 at 10:15 Haloperidol Lactate (Haldol) 0.5 mg PRN Q6HRS PRN IVP AGITATION, 2ND CHOICE; Start 06/04/16 at 10:15 Lactulose 20 gm BID PO Last administered on 06/08/16 08:19; Start 06/04/16 at 21:00 Midazolam HCl (Versed) 2 mg STK-MED ONCE .ROUTE ; Start 06/04/16 at 12:35; Stop 06/04/16 at 12:36; Status DC Fentanyl Citrate 100 mcg 100 mcg STK-MED ONCE .ROUTE ; Start 06/04/16 at 12:35; Stop 06/04/16 at 12:36; Status DC Cefazolin Sodium (Ancef 1gm Ivpb For Omni) 50 ml @ As Directed STK-MED ONCE IV ; Start 06/04/16 at 12:35; Stop 06/04/16 at 12:36; Status DC Heparin Sodium (Porcine) 10,000 unit STK-MED ONCE .ROUTE ; Start 06/04/16 at 12: 37; Stop 06/04/16 at 12:38; Status DC Lidocaine/ Epinephrine 20 ml 20 ml STK-MED ONCE .ROUTE ; Start 06/04/16 at 12:37 ; Stop 06/04/16 at 12:38; Status DC Heparin Sodium/ Sodium Chloride 500 ml @ As Directed STK-MED ONCE .ROUTE ; Start 06/04/16 at 12:37; Stop 06/04/16 at 12:38; Status DC Heparin Sodium/ Sodium Chloride 1,000 unit 1X ONCE IART Last administered on 13:09; Start 06/04/16 at 13:15; Stop 06/04/16 at 13:16; Status DC Midazolam HCl (Versed) 2 mg 1X ONCE IV Last administered on 06/04/16 13:12; Start 06/04/16 at 13:15; Stop 06/04/16 at 13:16; Status DC Fentanyl Citrate 100 mcg 100 mcg 1X ONCE IV Last administered on 06/04/16 13: 12; Start 06/04/16 at 13:15; Stop 06/04/16 at 13:16; Status DC Cefazolin Sodium (Ancef 1gm Ivpb For Omni) 50 ml @ 100 mls/hr 1X ONCE IV Last administered on 06/04/16 13:13; Start 06/04/16 at 13:15; Stop 06/04/16 at 13: 44; Status DC Heparin Sodium (Porcine) 2,600 unit 1X ONCE INT CAT Last administered on 13:10; Start 06/04/16 at 13:15; Stop 06/04/16 at 13:16; Status DC Lidocaine/ Epinephrine 20 ml 20 ml 1X ONCE IJ Last administered on 06/04/16 13 :11; Start 06/04/16 at 13:15; Stop 06/04/16 at 13:16; Status DC Sodium Chloride (Iv Sodium Chloride 0.9% 1000ml Bag) 1,000 ml @ 1,000 mls/hr Q1H PRN IV hypotension; Start 06/04/16 at 18:12; Stop 06/05/16 at 00:11; Status DC Sodium Chloride (Normal Saline Flush) 10 ml 1X PRN PRN IV AP catheter pack; Start 06/04/16 at 18:15; Stop 06/05/16 at 18:14; Status Cancel Sodium Chloride (Normal Saline Flush) 10 ml 1X PRN PRN IV JOINT FILLER catheter pack; Start 06/04/16 at 18:15; Stop 06/05/16 at 18:14; Status Cancel Info (PHARMACY MONITORING -- do not chart) 1 each PRN DAILY PRN MC SEE COMMENTS ; Start 06/04/16 at 18:15; Status UNV Info (PHARMACY MONITORING -- do not chart) 1 each PRN DAILY PRN MC SEE COMMENTS ; Start 06/04/16 at 18:15; Stop 06/08/16 at 17:45; Status DC Albuterol/ Ipratropium 3 ml 3 ml 1X ONCE NEB Last administered on 06/05/16 00 :29; Start 06/05/16 at 00:15; Stop 06/05/16 at 00:16; Status DC Sodium Chloride 1,000 ml @ 1,000 mls/hr Q1H PRN IV hypotension; Start 06/05/16 at 11:56; Stop 06/05/16 at 17:55; Status DC Albumin Human (Albuminar) 200 ml @ 200 mls/hr 1X PRN PRN IV Hypotension; Start 06/05/16 at 12:00; Stop 06/05/16 at 17:59; Status DC Acetaminophen (Tylenol) 500 mg 1X PRN PRN PO MILD PAIN / TEMP; Start 06/05/16 at 12:00; Stop 06/06/16 at 11:59; Status DC Diphenhydramine HCl (Benadryl) 25 mg 1X PRN PRN IV ITCHING; Start 06/05/16 at 12:00; Stop 06/06/16 at 11:59; Status DC Diphenhydramine HCl (Benadryl) 25 mg 1X PRN PRN IV ITCHING; Start 06/05/16 at 12:00; Stop 06/06/16 at 11:59; Status DC Sodium Chloride (Normal Saline Flush) 10 ml 1X PRN PRN IV AP catheter pack; Start 06/05/16 at 12:00; Stop 06/06/16 at 11:59; Status DC Sodium Chloride (Normal Saline Flush) 10 ml 1X PRN PRN IV JOINT FILLER catheter pack; Start 06/05/16 at 12:00; Stop 06/06/16 at 11:59; Status DC Info 1 each 1 each PRN DAILY PRN MC SEE COMMENTS; Start 06/05/16 at 12:00; Status UNV Magnesium Sulfate/ Dextrose (Magnesium Sulfate PREMIX 2GM) 50 ml @ 25 mls/hr 1X ONCE IV Last administered on 06/06/16t 07:56; Start 06/06/16 at 06:45; Stop 06/06/16 at 08:44; Status DC Potassium Chloride 40 meq 40 meq 1X ONCE PO Last administered on 06/07/16 09: 31; Start 06/07/16 at 08:45; Stop 06/07/16 at 08:46; Status DC Sodium Chloride 1,000 ml @ 1,000 mls/hr Q1H PRN IV hypotension; Start 06/08/16 at 10:39; Stop 06/08/16 at 16:38; Status DC Sodium Chloride (Iv Sodium Chloride 0.9% 1000ml Bag) 1,000 ml @ 400 mls/hr Q2H30M PRN IV PATENCY; Start 06/08/16 at 10:39; Stop 06/08/16 at 22:38; Status DC Info 1 each 1 each PRN DAILY PRN MC SEE COMMENTS; Start 06/08/16 at 10:45 Sodium Chloride (Iv Sodium Chloride 0.9% 1000ml Bag) 1,000 ml @ 75 mls/hr [id number] IV Last administered on 06/09/16 01:05; Start 06/08/16 at 11:45 Iohexol (Omnipaque 240 Mg/ml) 50 ml 1X ONCE PO Last administered on 06/08/16 15:15; Start 06/08/16 at 15:15; Stop 06/08/16 at 15:16; Status DC Lidocaine/Sodium Bicarbonate (Buffered Lidocaine 1%) 20 ml STK-MED ONCE IJ ; Start 06/09/16 at 09:54; Stop 06/09/16 at 09:55; Status DC Active Scripts Active Pantoprazole Sodium 40 Mg Tablet.dr 40 Mg PO DAILYAC 30 Days Reported Neomycin Sulfate 500 Mg Tablet 1 Tab PO BID Spironolactone 50 Mg Tablet 1 Tab PO DAILY Mag-Oxide (Magnesium Oxide) 400 Mg Tablet 2 Tab PO BID Vitamin D3 (Cholecalciferol (Vitamin D3)) 400 Unit Tablet 400 Unit PO BID Fish Oil Conc 1,000 mg Softgel ([place]-3/Dha/Epa/Fish Oil) 1,000 Mg Capsule 3, 000 Mg PO DAILY Multiple Vitamin (Multivitamin With Minerals) 1 Each Tablet 1 Each PO Corzide 40-5 Tablet (Nadolol/Bendroflumethiazide) 1 Each Tablet 0.5 Tab PO DAILY Coenzyme Q10 (Ubidecarenone) 100 Mg Capsule 100 Mg PO DAILY Calcium (Calcium Carbonate) 600 Mg Tablet 600 Mg PO BID Vitals/I & O Vital Sign - Last 24 Hours 06/08/16 06/08/16 06/08/16 06/08/16 12:10 15:00 15:14 17:27 Temp 98.0 98.0 Pulse 92 Resp 16 18 B/P 107/72 Pulse Ox 92 92 O2 Delivery Room Air Room Air Room Air Room Air O2 Flow Rate 2.0 06/08/16 06/08/16 06/08/16 06/08/16 18:13 19:00 19:00 20:28 Temp 98.2 98.2 Pulse 103 Resp 20 20 B/P 126/79 Pulse Ox 92 92 93 O2 Delivery Room Air Room Air Room Air Room Air O2 Flow Rate 2.0 06/08/16 06/09/16 06/09/16 06/09/16 23:00 03:21 07:00 07:12 Temp 98.5 98.4 97.9 98.5 98.4 97.9 Pulse 106 97 98 Resp 19 B/P 123/79 125/82 118/76 Pulse Ox 91 92 94 O2 Delivery Room Air Room Air Room Air Room Air 06/09/16 11:05 O2 Delivery Room Air Intake and Output 06/08/16 06/08/16 06/09/16 15:00 23:00 07:00 Intake Total 360 ml 1080 ml Balance 360 ml 1080 ml MARCEL ENGLISH III DO Jun 09, 2016 11:23
--- NOTE | 2016-06-09 12:05 | PDOC ---
Subjective: Subjective: Pt - doing okay. No abd pain. Says 4 stools yesterday, 2 today. Objective: Objective: RN - 2 stools today. Vital Signs: Vital Signs Date Time Temp Pulse Resp B/P Pulse Ox O2 Delivery O2 Flow Rate FiO2 06/09/16 11:05 Room Air 06/09/16 11:00 97.6 89 19 123/82 96 97.6 06/08/16 18:13 2.0 Labs: Laboratory Tests Test 06/09/16 04:05 White Blood Count 8.9x10^3/uL Red Blood Count 2.50x10^6/uL Hemoglobin 8.1g/dL Hematocrit 23.8% Mean Corpuscular Volume 95fL Mean Corpuscular Hemoglobin 32pg Mean Corpuscular Hemoglobin Concent 34g/dL Red Cell Distribution Width 19.5% Platelet Count 50x10^3/uL Neutrophils (%) (Auto) 57% Lymphocytes (%) (Auto) 18% Monocytes (%) (Auto) 21% Eosinophils (%) (Auto) 4% Basophils (%) (Auto) 1% Neutrophils # (Auto) 5.1x10^3uL Lymphocytes # (Auto) 1.6x10^3/uL Monocytes # (Auto) 1.9x10^3/uL Eosinophils # (Auto) 0.4x10^3/uL Basophils # (Auto) 0.1x10^3/uL Sodium Level 137mmol/L Potassium Level 3.5mmol/L Chloride Level 101mmol/L Carbon Dioxide Level 28mmol/L Anion Gap 8 Blood Urea Nitrogen 6mg/dL Creatinine 1.9mg/dL Estimated GFR (Cockcroft-Gault) 26.0 Glucose Level 98mg/dL Calcium Level 8.4mg/dL Ammonia 55mcmol/L Imaging: CT C/A/P IMPRESSION: 1. Hepatic cirrhosis with mesenteric congestion and a moderate volume of ascites. Similar findings were present on the study of 01/28/2016. 2. Small bilateral pleural effusions and basilar atelectasis, left greater than right. 3. Mild peripheral opacities in the lungs, probably due to fibrosis. 4. Tiny nodular opacities in the lateral lingular region on the left may be due to active inflammation or scarring. A neoplastic etiology cannot be excluded. 5. Coronary artery disease. 6. Anasarca. PE: GEN: NAD LUNGS: CTAB HEART: RRR ABD: BS+, non-tender, some firmness upper abd NEURO/PSYCH: A & O 3 A/P: Alcoholic cirrhosis -CT as above: hepatic cirrhosis with mesenteric congestion and a moderate volume of ascites (similar 01/2016) - also note pleural effusions, anasarca -Doppler 05/2016 unrevealing, AFP WNL -on Xifaxan BID, lactulose dosing varies (sometimes refuses) -ammonia from 36 to 55 today Anemia/thrombocytopenia -heme/onc following, s/p bone marrow bx 06/03 (pending), to have renal bx today -Hgb stable w/ bruising around HD catheter -EGD 12/2015: [place]roth II anatomy, normal esophagus, and nonerosive gastritis - on PO PPI QD KVNG -on HD -- Will review CT w/ Dr. Jackson - seems stable. Continue lactulose, Xifaxan. IVY BETH Jun 09, 2016 12:05
[2016-06-09] MEDS ORDERED: FENTANYL PF 100 MCG/2 ML VIAL. ONE (15:03)
[2016-06-09] MEDS ORDERED: MIDAZOLAM HCL 2 MG/2 ML VIAL. ONE (15:03)
[2016-06-09] MEDS ORDERED: FENTANYL PF 100 MCG/2 ML VIAL. IV ONE (15:15)
[2016-06-09] MEDS ORDERED: MIDAZOLAM HCL 2 MG/2 ML VIAL. IV ONE (15:15)
[2016-06-09] MEDS ORDERED: DESMOPRESSIN 20 MCG in IV NORMAL SALINE 50ML 50 ML IV ONE (16:30)
--- NOTE | 2016-06-09 17:05 | PDOC ---
MODERATE SEDATION ASSESSMENT RISKS/ALTERNATIVES Risks/Alternatives Risks and alternatives of this type of sedation and procedure discussed with: RISK/ALTERNATIVES: Patient H & P ON CHART H & P H & P on chart and reviewed for co-morbid conditions and appropriate labs. H&P ON CHART: Yes STATUS PREG STATUS ASSESSED: N/A MEDS/ALLERGIES REVIEWED Meds/Allergies Reviewed Medications and Allergies including time and route of recently administered narcotics and sedatives. MEDS/ALLERGIES REVIEWED: Yes ASA RATING ASA RATING: III AIRWAY ASSESSMENT Airway Assessment Airway patency, oral function limitations, presence of caps, crowns, dentures, partials, and ability to extend neck assessed. AIRWAY ASSESSMENT: Yes MALLAMPATI SCORE MALLAMPATI SCORE: III PRE-SEDATION ASSESSMENT PRE-SEDATION ASSESSMENT: Yes SHILA FLORES MD Jun 09, 2016 17:04
--- NOTE | 2016-06-09 17:12 | PDOC ---
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 Image guided renal bx requested Nephrology Post-Procedure Diagnosis Post-Procedure Diagnosis Same Procedure Performed Procedure Performed CT guided bx lower pole rt kidney. Type of Anesthesia Type of Anesthesia Local + Mod sedation Estimated Blood Loss EBL: 25 cc Specimens Specimans 2 18G core bx to path in formalin 2 18G core bx to path in Christopher's fixative Condition of Patient Condition of Patient Stable. Procedure complicated by mild perinephric bleeding, controlled with autologous clot and coils delivered thru bx guided needle, plus 25 mcg DDAVP given IV Disposition Disposition From IR/CT to 506. Will require prolonged bed rest and frequent VS thruout night to exclude recurrent post bx bleeding. F/u with Renal. Full report to follow. SHILA FLORES MD Jun 09, 2016 17:12
[2016-06-09] MEDS: HYDROCODONE/APAP 5/325MG TABLET. PO PRN (20:09)
[2016-06-10] VITALS (9 sets, daily range): BP systolic 106–138; BP diastolic 56–80
[2016-06-10 03:46] LABS: CALCIUM 8.6 mg/dL (8.5-10.1); CREATININE 2.6 mg/dL (0.6-1.0); GFR 18.1; POTASSIUM 3.5 mmol/L (3.5-5.1)
[2016-06-10] MEDS: IV NORMAL SALINE 1000ML BAG 1,000 ML IV SCH ×2 (04:19→22:20)
[2016-06-10 05:05] LABS: BASO # 0.1 x10^3/uL (0.0-0.2); BASO % 1 % (0-3); EOS % 3 % (0-3); LYMPH # 1.3 x10^3/uL (1.0-4.8); LYMPH % 15 % (24-48); MEAN CORPUSCULAR HEMOGLOBIN 32 pg (25-35); MEAN CORPUSCULAR HGB CONC 34 g/dL (31-37); MEAN CORPUSCULAR VOLUME 95 fL (79-100); MONO % 19 % (0-9); NEUT % 62 % (31-73); PLATELET COUNT 45 x10^3/uL (140-400); RED BLOOD COUNT 2.15 x10^6/uL (3.50-5.40); RED CELL DISTRIBUTION WIDTH 19.4 % (11.5-14.5)
[2016-06-10 05:08] LABS: HEMATOCRIT 20.3 % (36.0-47.0); HEMOGLOBIN 6.9 g/dL (12.0-15.5)
[2016-06-10] MEDS: PANTOPRAZOLE 40 MG TABLET. PO SCH (06:30)
[2016-06-10 06:45] LABS: % EOS 4 % (0-5); PLT ESTIMATE DECREASED (ADEQUATE)
[2016-06-10 06:47] LABS: ANISOCYTOSIS SLIGHT; ROULEAUX PRESENT
--- NOTE | 2016-06-10 07:01 | RAD ---
CT-guided renal biopsy Indication: 71-year-old female with acute renal failure, proteinuria, hematuria, and cold agglutinins. Image guided renal biopsy has been requested by nephrology. Anesthesia: 70 minutes moderate sedation was provided utilizing a total of 1 mg percent and 50 mcg fentanyl, IV. The patient was appropriately monitored by a qualified independent observer throughout the time of moderate sedation. Consent: The procedure was explained in its entirety to the patient and/or the patient's designated employment program representative by a member of the treatment team. This included a discussion of risks and benefits and acceptable alternatives to the procedure, as well as expected consequences of no treatment at all. Discussion of risks included, but was not limited to, those that are most frequent and those that are rare, but possibly severe or life-threatening, as well as the possibility of unforeseen complications. Procedure: Informed consent was obtained from the patient. She was placed prone on the CT scanner. Preliminary noncontrast CT images were obtained through kidneys. A right posterior skin site suitable for CT-guided biopsy of lower pole of right kidney was selected and was marked. That area was prepped and draped in the usual sterile fashion. Moderate sedation was provided with IV Versed and fentanyl. Using aseptic technique, local anesthesia, and CT guidance, a 17-gauge guide needle was successfully introduced into lower pole parenchyma of right kidney. A total of 4 18-gauge core biopsy samples were then obtained. 2 biopsy samples were submitted in formalin to pathology. 2 biopsy samples were submitted in Christopher's solution to pathology. There was brisk bleeding through the biopsy guide needle following the renal biopsy. This was controlled with autologous clot and two 6 mm x 14 cm Kayla embolization coils, delivered through the biopsy guide needle. The needle was then removed and a sterile dressing was applied. Completion CT images revealed subcapsular and perinephric bleeding about lower pole of right kidney. In an attempt to improve platelet function, 25 mcg DDAVP was given IV. There was no significant change in postbiopsy bleeding on 30 minute follow-up CT images. Impression: CT-guided biopsy lower pole right kidney, as described. This was complicated by subcapsular/perinephric bleeding, which appears to be controlled with autologous clot and embolization coils introduced through the biopsy guide needle and with IV DDAVP. The patient will be closely monitored overnight for flank pain and for signs of recurrent bleeding. PQRS Compliance Statement: One or more of the following individualized dose reduction techniques was utilized for this procedure: 1. Automated exposure control. 2. Adjustment of MA and/or KV according to patient size. 3. Iterative reconstruction technique.
[2016-06-10] MEDS: IPRATRPIUM/ALBUTEROL 0.5/2.5MG 3 ML NEBU. NEB SCH ×4 (07:12→19:33)
[2016-06-10] MEDS ORDERED: IOHEXOL 350 MG/ML 100ML VIAL. IV ONE (07:30)
[2016-06-10] MEDS ORDERED: CONTRAST GIVEN MC PRN (07:30)
[2016-06-10] MEDS ORDERED: IV NORMAL SALINE 1000ML BAG 1,000 ML IV PRN ×2 (08:19)
[2016-06-10] MEDS ORDERED: LABETALOL 20 MG/4 ML DISP.SYRIN. IVP PRN (08:30)
[2016-06-10] MEDS ORDERED: DIPHENHYDRAMINE 50 MG/ML VIAL IV PRN ×2 (08:30)
[2016-06-10] MEDS ORDERED: 0.9 % SODIUM CHLORIDE 10 ML DISP.SYRIN. IV PRN ×2 (08:30)
[2016-06-10] MEDS ORDERED: ALBUMIN HUMAN 25% 200 ML IV PRN (08:30)
[2016-06-10] MEDS ORDERED: ACETAMINOPHEN 500 MG TABLET PO PRN (08:30)
[2016-06-10] MEDS ORDERED: DIALYSIS PATIENT. MC PRN (08:30)
--- NOTE | 2016-06-10 08:52 | RAD ---
Indication: Subcapsular hematoma post renal biopsy. Technique: Precontrast, arterial, and portal venous phase imaging is provided. Coronal and sagittal reformatted images are provided. Volume rendered imaging is provided. Patient received 90 mL of intravenous Omnipaque 350 without complication. Patient is scheduled for dialysis today. Comparison is made to a study from June 08 and procedural images from June 09. One or more of the following individualized dose reduction techniques were utilized for this examination: 1. Automated exposure control 2. Adjustment of the mA and/or kV according to patient size 3. Use of iterative reconstruction technique Findings: Right renal subcapsular hematoma is noted and may be slightly larger than on prior study, extends at least 6 cm craniocaudal and measures 5 cm transverse x 2.7 cm AP. It compresses the underlying renal parenchyma. However, no active blush of contrast is identified. Embolization coils are noted. Small amount of retroperitoneal hemorrhage appears similar to post procedure imaging. There is still symmetric perfusion of renal parenchyma. Nonobstructing calculus in the left kidney is redemonstrated. There is atelectasis in the lung bases. There is a small right and small to medium left pleural effusion. Heart is not enlarged. Coronary artery calcifications are noted. Central line is in place. Ascites is noted. Liver appears small and surface nodularity is present. Spleen is not enlarged. Benign calcifications are noted in the spleen. Pancreas is apparently atrophic, not well evaluated. There is no adrenal mass. Gallbladder is surgically absent. There is atheromatous disease in the abdominal aorta without aneurysm. There is moderate ascites. There may be mild small bowel mural thickening which may be related to the ascites, no dilated bowel loop. There is no free air. The included colon is unremarkable. There are degenerative changes in the spine. There is subcutaneous edema. Impression: 1. Right renal subcapsular hematoma again noted. No evidence of active extravasation. 2. Small amount of retroperitoneal hemorrhage on the right also stable. Case was discussed with Dr. Burgos.
--- NOTE | 2016-06-10 09:54 | PDOC ---
Subjective: Subjective: Onc f/u- Cold agglutinin hemolytic anemia unclear etiology, thrombocytopenia Pt in HD this AM. Denies worsening SOB, CP, abd pain, bruising. Objective: Vital Signs: Vital Signs Date Time Temp Pulse Resp B/P Pulse Ox O2 Delivery O2 Flow Rate FiO2 06/10/16 07:12 91 Room Air 06/10/16 07:00 98.4 100 20 131/68 98.4 06/09/16 15:57 2.0 Physical Exam: Extremities: No edema General: Alert, Oriented X3, Cooperative, No acute distress Lungs: Other (no resp distress) Psych/Mental Status: Mental status NL, Mood NL Labs/Imaging: Hgb down to 6.9, plt 45 Bmbx path still pending Renal bx yesterday, pending Assessment/Plan A/P: 71 yo F with: 1. 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 No lymphoma, infection. Consider autoimmune cause. Bmbx neg for increase plasma cells, acute leuk, but lots of agglutinins. Final path pending. Transfusing today for hgb 6.9. 2. Thrombocytopenia, likely more cirrhotic in nature vs autoimmune. 3. Acute vs chronic kidney disease- renal following. Renal bx yesterday. 4. Ho alcohol abuse up to admission per daughter; pt denies. Alcohol found on table prior to admit. 5. Cirrhosis Hgb with slight dip today, could be related to bx recently. Clinically still stable. Steroids usually not helpful for cold agglutinin disease, immunosuppressants such as Rituxan/ cyclosporine sometimes used. Plan: - F/u pending final path from bmbx and renal bx - Recheck CBC tomorrow. - As clinically stable prefer to hold off on tx (Rituxan) for cold agglutination until official dx can be obtained, unless further worsening of anemia develops, today it is likely multifactorial. NAVEED SEPULVEDA DO Jun 10, 2016 09:54
--- NOTE | 2016-06-10 10:04 | PDOC ---
PROGRESS NOTES Subjective Subjective No new complaints. 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 Assessment Assessment Problems Medical Problems: (1) Altered mental status Status: Acute (2) Hyperammonemia Status: Acute Plan Plan of Care To assisted living facility if financially feasible,otherwise to [place]. Comment Review of Relevant I have reviewed the following items amy (where applicable) has been applied. Labs Laboratory Tests Test 06/09/16 04:05 06/10/16 03:27 White Blood Count 8.9x10^3/uL (4.0-11.0) 9.0x10^3/uL (4.0-11.0) Red Blood Count 2.50x10^6/uL (3.50-5.40) 2.15x10^6/uL (3.50-5.40) Hemoglobin 8.1g/dL (12.0-15.5) 6.9g/dL (12.0-15.5) Hematocrit 23.8% (36.0-47.0) 20.3% (36.0-47.0) Mean Corpuscular Volume 95fL (79-100) 95fL (79-100) Mean Corpuscular Hemoglobin 32pg (25-35) 32pg (25-35) Mean Corpuscular Hemoglobin Concent 34g/dL (31-37) 34g/dL (31-37) Red Cell Distribution Width 19.5% (11.5-14.5) 19.4% (11.5-14.5) Platelet Count 50x10^3/uL (140-400) 45x10^3/uL (140-400) Neutrophils (%) (Auto) 57% (31-73) 62% (31-73) Lymphocytes (%) (Auto) 18% (24-48) 15% (24-48) Monocytes (%) (Auto) 21% (0-9) 19% (0-9) Eosinophils (%) (Auto) 4% (0-3) 3% (0-3) Basophils (%) (Auto) 1% (0-3) 1% (0-3) Neutrophils # (Auto) 5.1x10^3uL (1.8-7.7) 5.6x10^3uL (1.8-7.7) Lymphocytes # (Auto) 1.6x10^3/uL (1.0-4.8) 1.3x10^3/uL (1.0-4.8) Monocytes # (Auto) 1.9x10^3/uL (0.0-1.1) 1.7x10^3/uL (0.0-1.1) Eosinophils # (Auto) 0.4x10^3/uL (0.0-0.7) 0.3x10^3/uL (0.0-0.7) Basophils # (Auto) 0.1x10^3/uL (0.0-0.2) 0.1x10^3/uL (0.0-0.2) Sodium Level 137mmol/L (136-145) 138mmol/L (136-145) Potassium Level 3.5mmol/L (3.5-5.1) 3.5mmol/L (3.5-5.1) Chloride Level 101mmol/L (98-107) 102mmol/L (98-107) Carbon Dioxide Level 28mmol/L (21-32) 26mmol/L (21-32) Anion Gap 8 (6-14) 10 (6-14) Blood Urea Nitrogen 6mg/dL (7-20) 10mg/dL (7-20) Creatinine 1.9mg/dL (0.6-1.0) 2.6mg/dL (0.6-1.0) Estimated GFR (Cockcroft-Gault) 26.0 18.1 Glucose Level 98mg/dL (70-99) 132mg/dL (70-99) Calcium Level 8.4mg/dL (8.5-10.1) 8.6mg/dL (8.5-10.1) Ammonia 55mcmol/L (11-34) 55mcmol/L (11-34) Segmented Neutrophils % 65% (35-66) Lymphocytes % 14% (24-48) Monocytes % 17% (0-10) Eosinophils % 4% (0-5) Platelet Estimate Decreased (ADEQUATE) Anisocytosis Slight Rouleau Present Laboratory Tests Test 06/10/16 03:27 White Blood Count 9.0x10^3/uL (4.0-11.0) Red Blood Count 2.15x10^6/uL (3.50-5.40) Hemoglobin 6.9g/dL (12.0-15.5) Hematocrit 20.3% (36.0-47.0) Mean Corpuscular Volume 95fL (79-100) Mean Corpuscular Hemoglobin 32pg (25-35) Mean Corpuscular Hemoglobin Concent 34g/dL (31-37) Red Cell Distribution Width 19.4% (11.5-14.5) Platelet Count 45x10^3/uL (140-400) Neutrophils (%) (Auto) 62% (31-73) Lymphocytes (%) (Auto) 15% (24-48) Monocytes (%) (Auto) 19% (0-9) Eosinophils (%) (Auto) 3% (0-3) Basophils (%) (Auto) 1% (0-3) Neutrophils # (Auto) 5.6x10^3uL (1.8-7.7) Lymphocytes # (Auto) 1.3x10^3/uL (1.0-4.8) Monocytes # (Auto) 1.7x10^3/uL (0.0-1.1) Eosinophils # (Auto) 0.3x10^3/uL (0.0-0.7) Basophils # (Auto) 0.1x10^3/uL (0.0-0.2) Segmented Neutrophils % 65% (35-66) Lymphocytes % 14% (24-48) Monocytes % 17% (0-10) Eosinophils % 4% (0-5) Platelet Estimate Decreased (ADEQUATE) Anisocytosis Slight Rouleau Present Sodium Level 138mmol/L (136-145) Potassium Level 3.5mmol/L (3.5-5.1) Chloride Level 102mmol/L (98-107) Carbon Dioxide Level 26mmol/L (21-32) Anion Gap 10 (6-14) Blood Urea Nitrogen 10mg/dL (7-20) Creatinine 2.6mg/dL (0.6-1.0) Estimated GFR (Cockcroft-Gault) 18.1 Glucose Level 132mg/dL (70-99) Calcium Level 8.6mg/dL (8.5-10.1) Ammonia 55mcmol/L (11-34) Microbiology 05/28/16 Blood Culture - Final, Complete NO GROWTH AFTER 5 DAYS Medications Current Medications Sodium Chloride (Iv Sodium Chloride 0.9% 1000ml Bag) 1,000 ml @ 1,000 mls/hr 1X ONCE IV Last administered on 05/28/16 16:07; Start 05/28/16 at 15:45; Stop 05/28/16 at 16:44; Status DC Ondansetron HCl 4 mg 4 mg PRN Q8HRS PRN IV NAUSEA/VOMITING; Start 05/28/16 at 17 :15; Stop 05/29/16 at 09:22; Status DC Sodium Chloride (Iv Sodium Chloride 0.9% 1000ml Bag) 1,000 ml @ 125 mls/hr Q8H IV ; Start 05/28/16 at 17:07; Stop 05/28/16 at 18:38; Status DC Lactulose 20 gm 20 gm PRN BID PRN PO CONSTIPATION; Start 05/28/16 at 18:45; Stop 05/29/16 at 10:00; Status DC Sodium Chloride (Iv Sodium Chloride 0.9% 1000ml Bag) 1,000 ml @ 100 mls/hr Q10H IV Last administered on 06/01/16 01:26; Start 05/28/16 at 19:00; Stop at 15:33; Status DC Acetaminophen (Tylenol) 325 mg PRN Q6HRS PRN PO MILD PAIN / TEMP Last administered on 06/05/16 17:40; Start 05/28/16 at 19:00 Acetaminophen/ Hydrocodone Bitart (Lortab 5/325) 1 tab PRN Q6HRS PRN PO MODERATE TO SEVERE PAIN Last administered on 06/09/16 20:09; Start 05/28/16 at 19:00 Hydralazine HCl (Apresoline) 10 mg PRN Q4HRS PRN IVP ELEVATED BP, SEE COMMENTS ; Start 05/28/16 at 19:00 Ondansetron HCl (Zofran) 4 mg PRN Q8HRS PRN IV NAUSEA/VOMITING Last administered on 05/30/16 03:36; Start 05/28/16 at 19:00 Albuterol Sulfate (Ventolin Neb Soln) 2.5 mg PRN Q4HRS PRN NEB SHORTNESS OF BREATH; Start 05/28/16 at 19:00 Lactulose 20 gm BID PO Last administered on 05/30/16 08:29; Start 05/29/16 at 10 :00; Stop 05/30/16 at 14:43; Status DC Pantoprazole Sodium (Protonix) 40 mg DAILYAC PO Last administered on 06/10/16 06:30; Start 05/29/16 at 10:00 Lactulose 20 gm TID PO ; Start 05/31/16 at 09:00; Stop 05/31/16 at 09:00; Status DC Lactulose 20 gm TID PO Last administered on 05/31/16 08:33; Start 05/30/16 at 14 :45; Stop 05/31/16 at 09:45; Status DC Rifaximin (Xifaxan) 550 mg Q12HR PO Last administered on 06/09/16 20:08; Start 05/30/16 at 15:00 Lactulose 20 gm 20 gm [id number] PO Last administered on 05/31/16 14:59; Start at 14:00; Stop 06/02/16 at 10:11; Status DC Magnesium Sulfate/ Dextrose 50 ml @ 25 mls/hr PRN DAILY PRN IV for Mag < 1.7 on am labs; Start 06/01/16 at 15:30 Sodium Bicarbonate/ Sodium Chloride (Iv Sodium Chloride 0.45%) 1,075 ml @ 100 mls/hr [id number] IV Last administered on 06/02/16 11:51; Start 06/01/16 at 15:45; Stop 06/02/16 at 18:18; Status DC Potassium Chloride (Klor-Con) 40 meq 1X ONCE PO Last administered on 06/02/16 08:39; Start 06/02/16 at 09:00; Stop 06/02/16 at 09:01; Status DC Lactulose 20 gm PRN BID PRN PO CONSTIPATION; Start 06/03/16 at 09:00; Stop at 12:00; Status DC Lactulose 20 gm BID PO Last administered on 06/02/16 11:49; Start 06/02/16 at 12 :00; Stop 06/03/16 at 10:38; Status DC Methylprednisolone Acetate (Depo-Medrol 40mg Vial) 40 mg 1X ONCE IM Last administered on 06/02/16 16:46; Start 06/02/16 at 16:30; Stop 06/02/16 at 16:31; Status DC Bupivacaine HCl (Sensorcaine-Mpf 0.25%) 10 ml 1X ONCE IJ Last administered on 06/02/16 16:46; Start 06/02/16 at 16:30; Stop 06/02/16 at 16:31; Status DC Methylprednisolone Acetate 40 mg 40 mg 1X ONCE IM Last administered on 16:45; Start 06/02/16 at 16:45; Stop 06/02/16 at 16:46; Status DC Sodium Bicarbonate/ Potassium Chloride/Sodium Chloride (Iv Sodium Chloride 0.45% ) 1,095 ml @ 100 mls/hr [id number] IV Last administered on 06/02/16 21:05; Start 06/02/16 at 18:30; Stop 06/03/16 at 05:26; Status DC Potassium Chloride 40 meq 40 meq 1X PRN PRN PO if repeat K < 3.7; Start at 18:15; Stop 06/03/16 at 05:00; Status DC Sodium Bicarbonate 75 meq/Sodium Chloride 1,075 ml @ 100 mls/hr [id number] IV Last administered on 06/04/16 03:30; Start 06/03/16 at 06:00; Stop 06/04/16 at 11: 39; Status DC Magnesium Sulfate/ Dextrose (Magnesium Sulfate PREMIX 4GM) 100 ml @ 25 mls/hr 1X ONCE IV Last administered on 06/03/16 10:10; Start 06/03/16 at 09:00; Stop 06/03/16 at 12:59; Status DC Magnesium Oxide (Magnesium Oxide) 400 mg DAILY PO Last administered on 09:30; Start 06/03/16 at 09:00 Lidocaine/Sodium Bicarbonate (Buffered Lidocaine 1%) 20 ml STK-MED ONCE IJ ; Start 06/03/16 at 10:23; Stop 06/03/16 at 10:24; Status DC Midazolam HCl (Versed) 5 mg STK-MED ONCE .ROUTE ; Start 06/03/16 at 10:24; Stop 06/03/16 at 10:25; Status DC Fentanyl Citrate (Fentanyl 5ml Vial) 250 mcg STK-MED ONCE .ROUTE ; Start at 10:24; Stop 06/03/16 at 10:25; Status DC Lidocaine/Sodium Bicarbonate (Buffered Lidocaine 1%) 20 ml 1X ONCE IJ Last administered on 06/03/16 10:57; Start 06/03/16 at 10:45; Stop 06/03/16 at 10:46; Status DC Midazolam HCl (Versed) 3 mg 1X ONCE IV Last administered on 06/03/16 10:58; Start 06/03/16 at 10:45; Stop 06/03/16 at 10:46; Status DC Fentanyl Citrate (Fentanyl 5ml Vial) 150 mcg 1X ONCE IV Last administered on 10:58; Start 06/03/16 at 10:45; Stop 06/03/16 at 10:46; Status DC Lactulose 20 gm DAILY PO Last administered on 06/04/16 09:02; Start 06/04/16 at 09:00; Stop 06/04/16 at 12:32; Status DC Albuterol/ Ipratropium (Duoneb) 3 ml RTQID NEB Last administered on 06/10/16 07:12; Start 06/03/16 at 20:00 Alprazolam (Xanax) 0.25 mg PRN Q8HRS PRN PO ANXIETY / AGITATION Last administered on 06/04/16 21:05; Start 06/04/16 at 10:15 Haloperidol Lactate (Haldol) 0.5 mg PRN Q6HRS PRN IVP AGITATION, 2ND CHOICE; Start 06/04/16 at 10:15 Lactulose 20 gm BID PO Last administered on 06/09/16 20:09; Start 06/04/16 at 21:00 Midazolam HCl (Versed) 2 mg STK-MED ONCE .ROUTE ; Start 06/04/16 at 12:35; Stop 06/04/16 at 12:36; Status DC Fentanyl Citrate 100 mcg 100 mcg STK-MED ONCE .ROUTE ; Start 06/04/16 at 12:35; Stop 06/04/16 at 12:36; Status DC Cefazolin Sodium (Ancef 1gm Ivpb For Omni) 50 ml @ As Directed STK-MED ONCE IV ; Start 06/04/16 at 12:35; Stop 06/04/16 at 12:36; Status DC Heparin Sodium (Porcine) 10,000 unit STK-MED ONCE .ROUTE ; Start 06/04/16 at 12: 37; Stop 06/04/16 at 12:38; Status DC Lidocaine/ Epinephrine 20 ml 20 ml STK-MED ONCE .ROUTE ; Start 06/04/16 at 12:37 ; Stop 06/04/16 at 12:38; Status DC Heparin Sodium/ Sodium Chloride 500 ml @ As Directed STK-MED ONCE .ROUTE ; Start 06/04/16 at 12:37; Stop 06/04/16 at 12:38; Status DC Heparin Sodium/ Sodium Chloride 1,000 unit 1X ONCE IART Last administered on 13:09; Start 06/04/16 at 13:15; Stop 06/04/16 at 13:16; Status DC Midazolam HCl (Versed) 2 mg 1X ONCE IV Last administered on 06/04/16 13:12; Start 06/04/16 at 13:15; Stop 06/04/16 at 13:16; Status DC Fentanyl Citrate 100 mcg 100 mcg 1X ONCE IV Last administered on 06/04/16 13: 12; Start 06/04/16 at 13:15; Stop 06/04/16 at 13:16; Status DC Cefazolin Sodium (Ancef 1gm Ivpb For Omni) 50 ml @ 100 mls/hr 1X ONCE IV Last administered on 06/04/16 13:13; Start 06/04/16 at 13:15; Stop 06/04/16 at 13: 44; Status DC Heparin Sodium (Porcine) 2,600 unit 1X ONCE INT CAT Last administered on 13:10; Start 06/04/16 at 13:15; Stop 06/04/16 at 13:16; Status DC Lidocaine/ Epinephrine 20 ml 20 ml 1X ONCE IJ Last administered on 06/04/16 13 :11; Start 06/04/16 at 13:15; Stop 06/04/16 at 13:16; Status DC Sodium Chloride (Iv Sodium Chloride 0.9% 1000ml Bag) 1,000 ml @ 1,000 mls/hr Q1H PRN IV hypotension; Start 06/04/16 at 18:12; Stop 06/05/16 at 00:11; Status DC Sodium Chloride (Normal Saline Flush) 10 ml 1X PRN PRN IV AP catheter pack; Start 06/04/16 at 18:15; Stop 06/05/16 at 18:14; Status Cancel Sodium Chloride (Normal Saline Flush) 10 ml 1X PRN PRN IV 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; Start 06/04/16 at 18:15; Stop 06/05/16 at 18:14; Status Cancel Info (PHARMACY MONITORING -- do not chart) 1 each PRN DAILY PRN MC SEE COMMENTS ; Start 06/04/16 at 18:15; Status UNV Info (PHARMACY MONITORING -- do not chart) 1 each PRN DAILY PRN MC SEE COMMENTS ; Start 06/04/16 at 18:15; Stop 06/08/16 at 17:45; Status DC Albuterol/ Ipratropium 3 ml 3 ml 1X ONCE NEB Last administered on 06/05/16 00 :29; Start 06/05/16 at 00:15; Stop 06/05/16 at 00:16; Status DC Sodium Chloride 1,000 ml @ 1,000 mls/hr Q1H PRN IV hypotension; Start 06/05/16 at 11:56; Stop 06/05/16 at 17:55; Status DC Albumin Human (Albuminar) 200 ml @ 200 mls/hr 1X PRN PRN IV Hypotension; Start 06/05/16 at 12:00; Stop 06/05/16 at 17:59; Status DC Acetaminophen (Tylenol) 500 mg 1X PRN PRN PO MILD PAIN / TEMP; Start 06/05/16 at 12:00; Stop 06/06/16 at 11:59; Status DC Diphenhydramine HCl (Benadryl) 25 mg 1X PRN PRN IV ITCHING; Start 06/05/16 at 12:00; Stop 06/06/16 at 11:59; Status DC Diphenhydramine HCl (Benadryl) 25 mg 1X PRN PRN IV ITCHING; Start 06/05/16 at 12:00; Stop 06/06/16 at 11:59; Status DC Sodium Chloride (Normal Saline Flush) 10 ml 1X PRN PRN IV AP catheter pack; Start 06/05/16 at 12:00; Stop 06/06/16 at 11:59; Status DC Sodium Chloride (Normal Saline Flush) 10 ml 1X PRN PRN IV 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; Start 06/05/16 at 12:00; Stop 06/06/16 at 11:59; Status DC Info 1 each 1 each PRN DAILY PRN MC SEE COMMENTS; Start 06/05/16 at 12:00; Status UNV Magnesium Sulfate/ Dextrose (Magnesium Sulfate PREMIX 2GM) 50 ml @ 25 mls/hr 1X ONCE IV Last administered on 06/06/16 07:56; Start 06/06/16 at 06:45; Stop 06/06/16 at 08:44; Status DC Potassium Chloride 40 meq 40 meq 1X ONCE PO Last administered on 06/07/16 09: 31; Start 06/07/16 at 08:45; Stop 06/07/16 at 08:46; Status DC Sodium Chloride 1,000 ml @ 1,000 mls/hr Q1H PRN IV hypotension; Start 06/08/16 at 10:39; Stop 06/08/16 at 16:38; Status DC Sodium Chloride (Iv Sodium Chloride 0.9% 1000ml Bag) 1,000 ml @ 400 mls/hr Q2H30M PRN IV PATENCY; Start 06/08/16 at 10:39; Stop 06/08/16 at 22:38; Status DC Info 1 each 1 each PRN DAILY PRN MC SEE COMMENTS; Start 06/08/16 at 10:45 Sodium Chloride (Iv Sodium Chloride 0.9% 1000ml Bag) 1,000 ml @ 75 mls/hr [id number] IV Last administered on 06/10/16 04:19; Start 06/08/16 at 11:45 Iohexol (Omnipaque 240 Mg/ml) 50 ml 1X ONCE PO Last administered on 06/08/16 15:15; Start 06/08/16 at 15:15; Stop 06/08/16 at 15:16; Status DC Lidocaine/Sodium Bicarbonate (Buffered Lidocaine 1%) 20 ml STK-MED ONCE IJ ; Start 06/09/16 at 09:54; Stop 06/09/16 at 09:55; Status DC Midazolam HCl (Versed) 2 mg STK-MED ONCE .ROUTE ; Start 06/09/16 at 15:03; Stop 06/09/16 at 15:04; Status DC Fentanyl Citrate (Fentanyl 2ml Vial) 100 mcg STK-MED ONCE .ROUTE ; Start at 15:03; Stop 06/09/16 at 15:04; Status DC Lidocaine/Sodium Bicarbonate (Buffered Lidocaine 1%) 20 ml 1X ONCE IJ Last administered on 06/09/16 16:35; Start 06/09/16 at 15:15; Stop 06/09/16 at 15:17 ; Status DC Midazolam HCl (Versed) 2 mg 1X ONCE IV Last administered on 06/09/16 16:35; Start 06/09/16 at 15:15; Stop 06/09/16 at 15:17; Status DC Fentanyl Citrate 100 mcg 100 mcg 1X ONCE IV Last administered on 06/09/16 16: 35; Start 06/09/16 at 15:15; Stop 06/09/16 at 15:17; Status DC Desmopressin Acetate/Sodium Chloride (Ddavp/Iv Sodium Chloride 0.9% 50ml) 55 ml @ 110 mls/hr 1X ONCE IV Last administered on 06/09/16 16:34; Start 06/09/16 at 16:30; Stop 06/09/16 at 16:59; Status DC Iohexol (Omnipaque 350 Mg/ml) 90 ml 1X ONCE IV Last administered on 06/10/16 07:53; Start 06/10/16 at 07:30; Stop 06/10/16 at 07:31; Status DC Info 1 each 1 each PRN DAILY PRN MC SEE COMMENTS; Start 06/10/16 at 07:30; Stop 06/12/16 at 07:29 Sodium Chloride 1,000 ml @ 1,000 mls/hr Q1H PRN IV hypotension; Start 06/10/16 at 08:19; Stop 06/10/16 at 16:00 Albumin Human (Albuminar) 200 ml @ 200 mls/hr 1X PRN PRN IV Hypotension; Start 06/10/16 at 08:30; Stop 06/10/16 at 16:00 Acetaminophen (Tylenol) 500 mg 1X PRN PRN PO MILD PAIN / TEMP; Start 06/10/16 at 08:30; Stop 06/10/16 at 16:00 Diphenhydramine HCl (Benadryl) 25 mg 1X PRN PRN IV ITCHING; Start 06/10/16 at 08:30; Stop 06/10/16 at 16:00 Diphenhydramine HCl (Benadryl) 25 mg 1X PRN PRN IV ITCHING; Start 06/10/16 at 08:30; Stop 06/10/16 at 16:00 Sodium Chloride (Normal Saline Flush) 10 ml 1X PRN PRN IV AP catheter pack; Start 06/10/16 at 08:30; Stop 06/10/16 at 16:00 Sodium Chloride (Normal Saline Flush) 10 ml 1X PRN PRN IV 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; Start 06/10/16 at 08:30; Stop 06/10/16 at 16:00 Labetalol HCl 10 mg 10 mg PRN Q1HR PRN IVP SBP > 180; Start 06/10/16 at 08:30; Stop 06/10/16 at 16:00 Sodium Chloride (Iv Sodium Chloride 0.9% 1000ml Bag) 1,000 ml @ 400 mls/hr Q2H30M PRN IV PATENCY; Start 06/10/16 at 08:19; Stop 06/10/16 at 16:00 Info (PHARMACY MONITORING -- do not chart) 1 each PRN DAILY PRN MC SEE COMMENTS ; Start 06/10/16 at 08:30; Status UNV Active Scripts Active Pantoprazole Sodium 40 Mg Tablet.dr 40 Mg PO DAILYAC 30 Days Reported Neomycin Sulfate 500 Mg Tablet 1 Tab PO BID Spironolactone 50 Mg Tablet 1 Tab PO DAILY Mag-Oxide (Magnesium Oxide) 400 Mg Tablet 2 Tab PO BID Vitamin D3 (Cholecalciferol (Vitamin D3)) 400 Unit Tablet 400 Unit PO BID Fish Oil Conc 1,000 mg Softgel ([place]-3/Dha/Epa/Fish Oil) 1,000 Mg Capsule 3, 000 Mg PO DAILY Multiple Vitamin (Multivitamin With Minerals) 1 Each Tablet 1 Each PO Corzide 40-5 Tablet (Nadolol/Bendroflumethiazide) 1 Each Tablet 0.5 Tab PO DAILY Coenzyme Q10 (Ubidecarenone) 100 Mg Capsule 100 Mg PO DAILY Calcium (Calcium Carbonate) 600 Mg Tablet 600 Mg PO BID Vitals/I & O Vital Sign - Last 24 Hours 06/09/16 06/09/16 06/09/16 06/09/16 11:00 11:05 15:19 15:23 Temp 97.6 97.6 Pulse 89 107 107 Resp 19 18 18 B/P 123/82 Pulse Ox 96 98 98 O2 Delivery Room Air Room Air Nasal Cannula Nasal Cannula O2 Flow Rate 2.0 2.0 06/09/16 06/09/16 06/09/16 06/09/16 15:28 15:32 15:37 15:43 Pulse 107 107 109 109 Resp 18 18 18 18 Pulse Ox 98 98 98 98 O2 Delivery Nasal Cannula Nasal Cannula Nasal Cannula Nasal Cannula O2 Flow Rate 2.0 2.0 2.0 2.0 06/09/16 06/09/16 06/09/16 06/09/16 15:50 15:57 16:09 16:35 Pulse 109 109 107 Resp 18 18 14 16 Pulse Ox 98 94 92 92 O2 Delivery Nasal Cannula Room Air Room Air Room Air O2 Flow Rate 2.0 2.0 06/09/16 06/09/16 06/09/16 06/09/16 16:57 17:00 17:15 17:30 Temp 97.5 97.5 97.5 97.5 97.5 97.5 Pulse 112 116 126 Resp 19 19 19 B/P 126/74 113/70 118/68 Pulse Ox 92 91 92 O2 Delivery Room Air Room Air Room Air Room Air 06/09/16 06/09/16 06/09/16 06/09/16 20:00 20:00 20:09 20:30 Temp 97.5 97.5 Pulse 91 102 Resp 16 B/P 121/74 114/67 Pulse Ox 90 90 O2 Delivery Room Air Room Air Room Air Room Air 06/09/16 06/09/16 06/09/16 06/09/16 21:00 21:09 21:11 22:00 Pulse 97 102 B/P 113/67 107/64 Pulse Ox 90 91 93 O2 Delivery Room Air Room Air Room Air Room Air 06/09/16 06/10/16 06/10/16 06/10/16 23:00 03:07 07:00 07:12 Temp 98.1 98.1 98.4 98.1 98.1 98.4 Pulse 112 98 100 Resp 20 20 20 B/P 104/58 110/71 131/68 Pulse Ox 91 90 92 91 O2 Delivery Room Air Room Air Room Air Room Air Intake and Output 06/09/16 06/09/16 06/10/16 15:00 23:00 07:00 Intake Total 368 ml 50 ml Balance 368 ml 50 ml CESARIO ABARCA MD Jun 10, 2016 10:04
--- NOTE | 2016-06-10 11:06 | PDOC ---
Renal-Progress Notes Subjective Notes Notes TIRED History of Present Illness Hx of present illness NO CHANGE Vitals Vitals Vital Signs Date Time Temp Pulse Resp B/P Pulse Ox O2 Delivery O2 Flow Rate FiO2 06/10/16 08:00 Room Air 06/10/16 07:12 91 06/10/16 07:00 98.4 100 20 131/68 98.4 06/09/16 15:57 2.0 Weight Weight [ ] I.O. Intake and Output Intake and Output 06/10/16 07:00 Intake Total 418 ml Balance 418 ml Intake Oral 418 ml # Voids 4 # Bowel Movements 1 Labs Labs Laboratory Tests Test 06/10/16 03:27 White Blood Count 9.0x10^3/uL (4.0-11.0) Red Blood Count 2.15x10^6/uL (3.50-5.40) Hemoglobin 6.9g/dL (12.0-15.5) Hematocrit 20.3% (36.0-47.0) Mean Corpuscular Volume 95fL (79-100) Mean Corpuscular Hemoglobin 32pg (25-35) Mean Corpuscular Hemoglobin Concent 34g/dL (31-37) Red Cell Distribution Width 19.4% (11.5-14.5) Platelet Count 45x10^3/uL (140-400) Neutrophils (%) (Auto) 62% (31-73) Lymphocytes (%) (Auto) 15% (24-48) Monocytes (%) (Auto) 19% (0-9) Eosinophils (%) (Auto) 3% (0-3) Basophils (%) (Auto) 1% (0-3) Neutrophils # (Auto) 5.6x10^3uL (1.8-7.7) Lymphocytes # (Auto) 1.3x10^3/uL (1.0-4.8) Monocytes # (Auto) 1.7x10^3/uL (0.0-1.1) Eosinophils # (Auto) 0.3x10^3/uL (0.0-0.7) Basophils # (Auto) 0.1x10^3/uL (0.0-0.2) Segmented Neutrophils % 65% (35-66) Lymphocytes % 14% (24-48) Monocytes % 17% (0-10) Eosinophils % 4% (0-5) Platelet Estimate Decreased (ADEQUATE) Anisocytosis Slight Rouleau Present Sodium Level 138mmol/L (136-145) Potassium Level 3.5mmol/L (3.5-5.1) Chloride Level 102mmol/L (98-107) Carbon Dioxide Level 26mmol/L (21-32) Anion Gap 10 (6-14) Blood Urea Nitrogen 10mg/dL (7-20) Creatinine 2.6mg/dL (0.6-1.0) Estimated GFR (Cockcroft-Gault) 18.1 Glucose Level 132mg/dL (70-99) Calcium Level 8.6mg/dL (8.5-10.1) Ammonia 55mcmol/L (11-34) Micro Micro Microbiology 05/28/16 Blood Culture - Final, Complete NO GROWTH AFTER 5 DAYS Review of Systems Constitutional: yes: alert, weakness Physical Exam General Appearance: no apparent distress, thin, other Respiratory: bilateral CTA Heart: S1S2 Abdomen: soft, bowel sounds present Neurology: alert Assessment Assessment IMP EON-LUWKWKAR-ZLLW ATN RATHER THAN ANY NEPHRITIS MET ENCEPHALOPATHY-BETTER CYTOPENIA COLD AGGLUTININS S/P RENAL BX PLAN HD TODAY UF TO DW MAY NEED PRBC IVF'S ARANESP WILL FOLLOW WILLIAM JORGE MD Jun 10, 2016 11:06
[2016-06-10] MEDS: LACTULOSE 20 GM/30 ML SOLUTION. PO SCH ×2 (12:13→22:13)
[2016-06-10] MEDS: ALPRAZOLAM 0.25 MG TABLET PO PRN (12:13)
[2016-06-10] MEDS: RIFAXIMIN 550 MG TABLET PO SCH ×2 (12:13→22:14)
[2016-06-10] MEDS: MAGNESIUM OXIDE 400 MG TABLET PO SCH (12:13)
--- NOTE | 2016-06-10 12:56 | PDOC ---
Provider Note Provider Note IR Note: S/P right lower pole renal bx yesterday. VSS with no flank pain---however hgb down from 8.1 to 6.9. CTA this AM revealed essentially stable subcapsular and perinephric hematoma, without active arterial extravasation. No further IR intervention indicated at this time. Will follow. SHILA FLORES MD Jun 10, 2016 12:56
--- NOTE | 2016-06-10 13:24 | PDOC ---
Subjective: Subjective: Denies bleeding. +BMs Objective: Objective: Lunch tray untouched. Transfusing. Vital Signs: Vital Signs Date Time Temp Pulse Resp B/P Pulse Ox O2 Delivery O2 Flow Rate FiO2 06/10/16 13:05 97.7 110 18 108/58 97.7 06/10/16 08:00 Room Air 06/10/16 07:12 91 06/09/16 15:57 2.0 Labs: Laboratory Tests Test 06/10/16 03:27 White Blood Count 9.0x10^3/uL Red Blood Count 2.15x10^6/uL Hemoglobin 6.9g/dL Hematocrit 20.3% Mean Corpuscular Volume 95fL Mean Corpuscular Hemoglobin 32pg Mean Corpuscular Hemoglobin Concent 34g/dL Red Cell Distribution Width 19.4% Platelet Count 45x10^3/uL Neutrophils (%) (Auto) 62% Lymphocytes (%) (Auto) 15% Monocytes (%) (Auto) 19% Eosinophils (%) (Auto) 3% Basophils (%) (Auto) 1% Neutrophils # (Auto) 5.6x10^3uL Lymphocytes # (Auto) 1.3x10^3/uL Monocytes # (Auto) 1.7x10^3/uL Eosinophils # (Auto) 0.3x10^3/uL Basophils # (Auto) 0.1x10^3/uL Segmented Neutrophils % 65% Lymphocytes % 14% Monocytes % 17% Eosinophils % 4% Platelet Estimate Decreased Anisocytosis Slight Rouleau Present Sodium Level 138mmol/L Potassium Level 3.5mmol/L Chloride Level 102mmol/L Carbon Dioxide Level 26mmol/L Anion Gap 10 Blood Urea Nitrogen 10mg/dL Creatinine 2.6mg/dL Estimated GFR (Cockcroft-Gault) 18.1 Glucose Level 132mg/dL Calcium Level 8.6mg/dL Ammonia 55mcmol/L Imaging: CTA abd 06/10/16 Findings: Right renal subcapsular hematoma is noted and may be slightly larger than on prior study, extends at least 6 cm craniocaudal and measures 5 cm transverse x 2.7 cm AP. It compresses the underlying renal parenchyma. However, no active blush of contrast is identified. Embolization coils are noted. Small amount of retroperitoneal hemorrhage appears similar to post procedure imaging. There is still symmetric perfusion of renal parenchyma. Nonobstructing calculus in the left kidney is redemonstrated. There is atelectasis in the lung bases. There is a small right and small to medium left pleural effusion. Heart is not enlarged. Coronary artery calcifications are noted. Central line is in place. Ascites is noted. Liver appears small and surface nodularity is present. Spleen is not enlarged. Benign calcifications are noted in the spleen. Pancreas is apparently atrophic, not well evaluated. There is no adrenal mass. Gallbladder is surgically absent. There is atheromatous disease in the abdominal aorta without aneurysm. There is moderate ascites. There may be mild small bowel mural thickening which may be related to the ascites, no dilated bowel loop. There is no free air. The included colon is unremarkable. There are degenerative changes in the spine. There is subcutaneous edema. Impression: 1. Right renal subcapsular hematoma again noted. No evidence of active extravasation. 2. Small amount of retroperitoneal hemorrhage on the right also stable. 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 IVY BETH Jun 10, 2016 13:24
--- NOTE | 2016-06-10 13:25 | PDOC ---
PROGRESS NOTES Chief Complaint Chief Complaint CC- Altered mental status, hyperammonemia 1. Encephalopathy, possible metabolic, hepatic. 2. Acute kidney injury, ATN,myeloma? 3. Metabolic acidosis. 4. Thrombocytopenia 2/2 cirrhosis likely 5. Anemia, chronic. 6. Hyperbilirubinemia. 7. Alcoholism. 8. high INR 2/2 CIrrhosis likely 9, LEFT thigh pain, 2/2 OA? 10. hypomagnesemia History of Present Illness History of Present Illness Patient was awake, alert and in the bed, she had blood transfusion this AM as her Hgb dropped from 8.1 to 6.9, CT of abdomen showed no abnormality, she had renal biopsy yesterday. Will discharge her home tomorrow if stable and subspecialities will agree. At the time of evaluation pt. was in no acute distress and had no new complains. Vitals Vitals Vital Signs Date Time Temp Pulse Resp B/P Pulse Ox O2 Delivery O2 Flow Rate FiO2 06/10/16 13:05 97.7 110 18 108/58 97.7 06/10/16 08:00 Room Air 06/10/16 07:12 91 06/09/16 15:57 2.0 Physical Exam Physical Exam aaox2 to person and place only General: Alert, Oriented X3, Cooperative, No acute distress Heart: Regular rate Lungs: Clear Abdomen: Soft, No tenderness, Other (no ascites) Extremities: No edema Skin: Other (bruising on left flank, over HD catheter) Labs LABS Laboratory Tests Test 06/10/16 03:27 White Blood Count 9.0x10^3/uL (4.0-11.0) Red Blood Count 2.15x10^6/uL (3.50-5.40) Hemoglobin 6.9g/dL (12.0-15.5) Hematocrit 20.3% (36.0-47.0) Mean Corpuscular Volume 95fL (79-100) Mean Corpuscular Hemoglobin 32pg (25-35) Mean Corpuscular Hemoglobin Concent 34g/dL (31-37) Red Cell Distribution Width 19.4% (11.5-14.5) Platelet Count 45x10^3/uL (140-400) Neutrophils (%) (Auto) 62% (31-73) Lymphocytes (%) (Auto) 15% (24-48) Monocytes (%) (Auto) 19% (0-9) Eosinophils (%) (Auto) 3% (0-3) Basophils (%) (Auto) 1% (0-3) Neutrophils # (Auto) 5.6x10^3uL (1.8-7.7) Lymphocytes # (Auto) 1.3x10^3/uL (1.0-4.8) Monocytes # (Auto) 1.7x10^3/uL (0.0-1.1) Eosinophils # (Auto) 0.3x10^3/uL (0.0-0.7) Basophils # (Auto) 0.1x10^3/uL (0.0-0.2) Segmented Neutrophils % 65% (35-66) Lymphocytes % 14% (24-48) Monocytes % 17% (0-10) Eosinophils % 4% (0-5) Platelet Estimate Decreased (ADEQUATE) Anisocytosis Slight Rouleau Present Sodium Level 138mmol/L (136-145) Potassium Level 3.5mmol/L (3.5-5.1) Chloride Level 102mmol/L (98-107) Carbon Dioxide Level 26mmol/L (21-32) Anion Gap 10 (6-14) Blood Urea Nitrogen 10mg/dL (7-20) Creatinine 2.6mg/dL (0.6-1.0) Estimated GFR (Cockcroft-Gault) 18.1 Glucose Level 132mg/dL (70-99) Calcium Level 8.6mg/dL (8.5-10.1) Ammonia 55mcmol/L (11-34) Review of Systems Review of Systems Denies fever, chills Denies SOB, CP no ascites noticed alert, awake, oriented Assessment and Plan Assessmemt and Plan Assessment: 1. Encephalopathy, possible metabolic, hepatic. 2. Acute kidney injury, ATN,myeloma? 3. Metabolic acidosis. 4. Thrombocytopenia 2/2 cirrhosis likely 5. Anemia, chronic. 6. Hyperbilirubinemia. 7. Alcoholism. 8. high INR 2/2 CIrrhosis likely 9, LEFT thigh pain, 2/2 OA? 10. hypomagnesemia Plan: - Agree with Renal and Heme onc plan of care - Probable discharge home tomorrow if stable and subspecialities agree - Continue lactulose to keep BM 2-3 times per day. - Recheck labs in AM - PT/OT - Appreciate subspecialities inputs and recommendation Problems Medical Problems: (1) Altered mental status Status: Acute (2) Hyperammonemia Status: Acute Problems: Comment Review of Relevant I have reviewed the following items amy (where applicable) has been applied. Labs Laboratory Tests Test 06/09/16 04:05 06/10/16 03:27 White Blood Count 8.9x10^3/uL (4.0-11.0) 9.0x10^3/uL (4.0-11.0) Red Blood Count 2.50x10^6/uL (3.50-5.40) 2.15x10^6/uL (3.50-5.40) Hemoglobin 8.1g/dL (12.0-15.5) 6.9g/dL (12.0-15.5) Hematocrit 23.8% (36.0-47.0) 20.3% (36.0-47.0) Mean Corpuscular Volume 95fL (79-100) 95fL (79-100) Mean Corpuscular Hemoglobin 32pg (25-35) 32pg (25-35) Mean Corpuscular Hemoglobin Concent 34g/dL (31-37) 34g/dL (31-37) Red Cell Distribution Width 19.5% (11.5-14.5) 19.4% (11.5-14.5) Platelet Count 50x10^3/uL (140-400) 45x10^3/uL (140-400) Neutrophils (%) (Auto) 57% (31-73) 62% (31-73) Lymphocytes (%) (Auto) 18% (24-48) 15% (24-48) Monocytes (%) (Auto) 21% (0-9) 19% (0-9) Eosinophils (%) (Auto) 4% (0-3) 3% (0-3) Basophils (%) (Auto) 1% (0-3) 1% (0-3) Neutrophils # (Auto) 5.1x10^3uL (1.8-7.7) 5.6x10^3uL (1.8-7.7) Lymphocytes # (Auto) 1.6x10^3/uL (1.0-4.8) 1.3x10^3/uL (1.0-4.8) Monocytes # (Auto) 1.9x10^3/uL (0.0-1.1) 1.7x10^3/uL (0.0-1.1) Eosinophils # (Auto) 0.4x10^3/uL (0.0-0.7) 0.3x10^3/uL (0.0-0.7) Basophils # (Auto) 0.1x10^3/uL (0.0-0.2) 0.1x10^3/uL (0.0-0.2) Sodium Level 137mmol/L (136-145) 138mmol/L (136-145) Potassium Level 3.5mmol/L (3.5-5.1) 3.5mmol/L (3.5-5.1) Chloride Level 101mmol/L (98-107) 102mmol/L (98-107) Carbon Dioxide Level 28mmol/L (21-32) 26mmol/L (21-32) Anion Gap 8 (6-14) 10 (6-14) Blood Urea Nitrogen 6mg/dL (7-20) 10mg/dL (7-20) Creatinine 1.9mg/dL (0.6-1.0) 2.6mg/dL (0.6-1.0) Estimated GFR (Cockcroft-Gault) 26.0 18.1 Glucose Level 98mg/dL (70-99) 132mg/dL (70-99) Calcium Level 8.4mg/dL (8.5-10.1) 8.6mg/dL (8.5-10.1) Ammonia 55mcmol/L (11-34) 55mcmol/L (11-34) Segmented Neutrophils % 65% (35-66) Lymphocytes % 14% (24-48) Monocytes % 17% (0-10) Eosinophils % 4% (0-5) Platelet Estimate Decreased (ADEQUATE) Anisocytosis Slight Rouleau Present Laboratory Tests Test 06/10/16 03:27 White Blood Count 9.0x10^3/uL (4.0-11.0) Red Blood Count 2.15x10^6/uL (3.50-5.40) Hemoglobin 6.9g/dL (12.0-15.5) Hematocrit 20.3% (36.0-47.0) Mean Corpuscular Volume 95fL (79-100) Mean Corpuscular Hemoglobin 32pg (25-35) Mean Corpuscular Hemoglobin Concent 34g/dL (31-37) Red Cell Distribution Width 19.4% (11.5-14.5) Platelet Count 45x10^3/uL (140-400) Neutrophils (%) (Auto) 62% (31-73) Lymphocytes (%) (Auto) 15% (24-48) Monocytes (%) (Auto) 19% (0-9) Eosinophils (%) (Auto) 3% (0-3) Basophils (%) (Auto) 1% (0-3) Neutrophils # (Auto) 5.6x10^3uL (1.8-7.7) Lymphocytes # (Auto) 1.3x10^3/uL (1.0-4.8) Monocytes # (Auto) 1.7x10^3/uL (0.0-1.1) Eosinophils # (Auto) 0.3x10^3/uL (0.0-0.7) Basophils # (Auto) 0.1x10^3/uL (0.0-0.2) Segmented Neutrophils % 65% (35-66) Lymphocytes % 14% (24-48) Monocytes % 17% (0-10) Eosinophils % 4% (0-5) Platelet Estimate Decreased (ADEQUATE) Anisocytosis Slight Rouleau Present Sodium Level 138mmol/L (136-145) Potassium Level 3.5mmol/L (3.5-5.1) Chloride Level 102mmol/L (98-107) Carbon Dioxide Level 26mmol/L (21-32) Anion Gap 10 (6-14) Blood Urea Nitrogen 10mg/dL (7-20) Creatinine 2.6mg/dL (0.6-1.0) Estimated GFR (Cockcroft-Gault) 18.1 Glucose Level 132mg/dL (70-99) Calcium Level 8.6mg/dL (8.5-10.1) Ammonia 55mcmol/L (11-34) Microbiology 05/28/16 Blood Culture - Final, Complete NO GROWTH AFTER 5 DAYS Medications Current Medications Sodium Chloride (Iv Sodium Chloride 0.9% 1000ml Bag) 1,000 ml @ 1,000 mls/hr 1X ONCE IV Last administered on 05/28/16 16:07; Start 05/28/16 at 15:45; Stop 05/28/16 at 16:44; Status DC Ondansetron HCl 4 mg 4 mg PRN Q8HRS PRN IV NAUSEA/VOMITING; Start 05/28/16 at 17 :15; Stop 05/29/16 at 09:22; Status DC Sodium Chloride (Iv Sodium Chloride 0.9% 1000ml Bag) 1,000 ml @ 125 mls/hr Q8H IV ; Start 05/28/16 at 17:07; Stop 05/28/16 at 18:38; Status DC Lactulose 20 gm 20 gm PRN BID PRN PO CONSTIPATION; Start 05/28/16 at 18:45; Stop 05/29/16 at 10:00; Status DC Sodium Chloride (Iv Sodium Chloride 0.9% 1000ml Bag) 1,000 ml @ 100 mls/hr Q10H IV Last administered on 06/01/16 01:26; Start 05/28/16 at 19:00; Stop at 15:33; Status DC Acetaminophen (Tylenol) 325 mg PRN Q6HRS PRN PO MILD PAIN / TEMP Last administered on 06/05/16 17:40; Start 05/28/16 at 19:00 Acetaminophen/ Hydrocodone Bitart (Lortab 5/325) 1 tab PRN Q6HRS PRN PO MODERATE TO SEVERE PAIN Last administered on 06/09/16 20:09; Start 05/28/16 at 19:00 Hydralazine HCl (Apresoline) 10 mg PRN Q4HRS PRN IVP ELEVATED BP, SEE COMMENTS ; Start 05/28/16 at 19:00 Ondansetron HCl (Zofran) 4 mg PRN Q8HRS PRN IV NAUSEA/VOMITING Last administered on 05/30/16 03:36; Start 05/28/16 at 19:00 Albuterol Sulfate (Ventolin Neb Soln) 2.5 mg PRN Q4HRS PRN NEB SHORTNESS OF BREATH; Start 05/28/16 at 19:00 Lactulose 20 gm BID PO Last administered on 05/30/16 08:29; Start 05/29/16 at 10 :00; Stop 05/30/16 at 14:43; Status DC Pantoprazole Sodium (Protonix) 40 mg DAILYAC PO Last administered on 06/10/16 06:30; Start 05/29/16 at 10:00 Lactulose 20 gm TID PO ; Start 05/31/16 at 09:00; Stop 05/31/16 at 09:00; Status DC Lactulose 20 gm TID PO Last administered on 05/31/16 08:33; Start 05/30/16 at 14 :45; Stop 05/31/16 at 09:45; Status DC Rifaximin (Xifaxan) 550 mg Q12HR PO Last administered on 06/10/16 12:13; Start 05/30/16 at 15:00 Lactulose 20 gm 20 gm [id number] PO Last administered on 05/31/16 14:59; Start at 14:00; Stop 06/02/16 at 10:11; Status DC Magnesium Sulfate/ Dextrose 50 ml @ 25 mls/hr PRN DAILY PRN IV for Mag < 1.7 on am labs; Start 06/01/16 at 15:30 Sodium Bicarbonate/ Sodium Chloride (Iv Sodium Chloride 0.45%) 1,075 ml @ 100 mls/hr [id number] IV Last administered on 06/02/16 11:51; Start 06/01/16 at 15:45; Stop 06/02/16 at 18:18; Status DC Potassium Chloride (Klor-Con) 40 meq 1X ONCE PO Last administered on 06/02/16 08:39; Start 06/02/16 at 09:00; Stop 06/02/16 at 09:01; Status DC Lactulose 20 gm PRN BID PRN PO CONSTIPATION; Start 06/03/16 at 09:00; Stop at 12:00; Status DC Lactulose 20 gm BID PO Last administered on 06/02/16 11:49; Start 06/02/16 at 12 :00; Stop 06/03/16 at 10:38; Status DC Methylprednisolone Acetate (Depo-Medrol 40mg Vial) 40 mg 1X ONCE IM Last administered on 06/02/16 16:46; Start 06/02/16 at 16:30; Stop 06/02/16 at 16:31; Status DC Bupivacaine HCl (Sensorcaine-Mpf 0.25%) 10 ml 1X ONCE IJ Last administered on 06/02/16 16:46; Start 06/02/16 at 16:30; Stop 06/02/16 at 16:31; Status DC Methylprednisolone Acetate 40 mg 40 mg 1X ONCE IM Last administered on 16:45; Start 06/02/16 at 16:45; Stop 06/02/16 at 16:46; Status DC Sodium Bicarbonate/ Potassium Chloride/Sodium Chloride (Iv Sodium Chloride 0.45% ) 1,095 ml @ 100 mls/hr [id number] IV Last administered on 06/02/16 21:05; Start 06/02/16 at 18:30; Stop 06/03/16 at 05:26; Status DC Potassium Chloride 40 meq 40 meq 1X PRN PRN PO if repeat K < 3.7; Start at 18:15; Stop 06/03/16 at 05:00; Status DC Sodium Bicarbonate 75 meq/Sodium Chloride 1,075 ml @ 100 mls/hr [id number] IV Last administered on 06/04/16 03:30; Start 06/03/16 at 06:00; Stop 06/04/16 at 11: 39; Status DC Magnesium Sulfate/ Dextrose (Magnesium Sulfate PREMIX 4GM) 100 ml @ 25 mls/hr 1X ONCE IV Last administered on 06/03/16 10:10; Start 06/03/16 at 09:00; Stop 06/03/16 at 12:59; Status DC Magnesium Oxide (Magnesium Oxide) 400 mg DAILY PO Last administered on 12:13; Start 06/03/16 at 09:00 Lidocaine/Sodium Bicarbonate (Buffered Lidocaine 1%) 20 ml STK-MED ONCE IJ ; Start 06/03/16 at 10:23; Stop 06/03/16 at 10:24; Status DC Midazolam HCl (Versed) 5 mg STK-MED ONCE .ROUTE ; Start 06/03/16 at 10:24; Stop 06/03/16 at 10:25; Status DC Fentanyl Citrate (Fentanyl 5ml Vial) 250 mcg STK-MED ONCE .ROUTE ; Start at 10:24; Stop 06/03/16 at 10:25; Status DC Lidocaine/Sodium Bicarbonate (Buffered Lidocaine 1%) 20 ml 1X ONCE IJ Last administered on 06/03/16 10:57; Start 06/03/16 at 10:45; Stop 06/03/16 at 10:46; Status DC Midazolam HCl (Versed) 3 mg 1X ONCE IV Last administered on 06/03/16 10:58; Start 06/03/16 at 10:45; Stop 06/03/16 at 10:46; Status DC Fentanyl Citrate (Fentanyl 5ml Vial) 150 mcg 1X ONCE IV Last administered on 10:58; Start 06/03/16 at 10:45; Stop 06/03/16 at 10:46; Status DC Lactulose 20 gm DAILY PO Last administered on 06/04/16 09:02; Start 06/04/16 at 09:00; Stop 06/04/16 at 12:32; Status DC Albuterol/ Ipratropium (Duoneb) 3 ml RTQID NEB Last administered on 06/10/16 12:02; Start 06/03/16 at 20:00 Alprazolam (Xanax) 0.25 mg PRN Q8HRS PRN PO ANXIETY / AGITATION Last administered on 06/10/16 12:13; Start 06/04/16 at 10:15 Haloperidol Lactate (Haldol) 0.5 mg PRN Q6HRS PRN IVP AGITATION, 2ND CHOICE; Start 06/04/16 at 10:15 Lactulose 20 gm BID PO Last administered on 06/10/16 12:13; Start 06/04/16 at 21:00 Midazolam HCl (Versed) 2 mg STK-MED ONCE .ROUTE ; Start 06/04/16 at 12:35; Stop 06/04/16 at 12:36; Status DC Fentanyl Citrate 100 mcg 100 mcg STK-MED ONCE .ROUTE ; Start 06/04/16 at 12:35; Stop 06/04/16 at 12:36; Status DC Cefazolin Sodium (Ancef 1gm Ivpb For Omni) 50 ml @ As Directed STK-MED ONCE IV ; Start 06/04/16 at 12:35; Stop 06/04/16 at 12:36; Status DC Heparin Sodium (Porcine) 10,000 unit STK-MED ONCE .ROUTE ; Start 06/04/16 at 12: 37; Stop 06/04/16 at 12:38; Status DC Lidocaine/ Epinephrine 20 ml 20 ml STK-MED ONCE .ROUTE ; Start 06/04/16 at 12:37 ; Stop 06/04/16 at 12:38; Status DC Heparin Sodium/ Sodium Chloride 500 ml @ As Directed STK-MED ONCE .ROUTE ; Start 06/04/16 at 12:37; Stop 06/04/16 at 12:38; Status DC Heparin Sodium/ Sodium Chloride 1,000 unit 1X ONCE IART Last administered on 13:09; Start 06/04/16 at 13:15; Stop 06/04/16 at 13:16; Status DC Midazolam HCl (Versed) 2 mg 1X ONCE IV Last administered on 06/04/16 13:12; Start 06/04/16 at 13:15; Stop 06/04/16 at 13:16; Status DC Fentanyl Citrate 100 mcg 100 mcg 1X ONCE IV Last administered on 06/04/16 13: 12; Start 06/04/16 at 13:15; Stop 06/04/16 at 13:16; Status DC Cefazolin Sodium (Ancef 1gm Ivpb For Omni) 50 ml @ 100 mls/hr 1X ONCE IV Last administered on 06/04/16 13:13; Start 06/04/16 at 13:15; Stop 06/04/16 at 13: 44; Status DC Heparin Sodium (Porcine) 2,600 unit 1X ONCE INT CAT Last administered on 13:10; Start 06/04/16 at 13:15; Stop 06/04/16 at 13:16; Status DC Lidocaine/ Epinephrine 20 ml 20 ml 1X ONCE IJ Last administered on 06/04/16 13 :11; Start 06/04/16 at 13:15; Stop 06/04/16 at 13:16; Status DC Sodium Chloride (Iv Sodium Chloride 0.9% 1000ml Bag) 1,000 ml @ 1,000 mls/hr Q1H PRN IV hypotension; Start 06/04/16 at 18:12; Stop 06/05/16 at 00:11; Status DC Sodium Chloride (Normal Saline Flush) 10 ml 1X PRN PRN IV AP catheter pack; Start 06/04/16 at 18:15; Stop 06/05/16 at 18:14; Status Cancel Sodium Chloride (Normal Saline Flush) 10 ml 1X PRN PRN IV [employer] catheter pack; Start 06/04/16 at 18:15; Stop 06/05/16 at 18:14; Status Cancel Info (PHARMACY MONITORING -- do not chart) 1 each PRN DAILY PRN MC SEE COMMENTS ; Start 06/04/16 at 18:15; Status UNV Info (PHARMACY MONITORING -- do not chart) 1 each PRN DAILY PRN MC SEE COMMENTS ; Start 06/04/16 at 18:15; Stop 06/08/16 at 17:45; Status DC Albuterol/ Ipratropium 3 ml 3 ml 1X ONCE NEB Last administered on 06/05/16t 00 :29; Start 06/05/16 at 00:15; Stop 06/05/16 at 00:16; Status DC Sodium Chloride 1,000 ml @ 1,000 mls/hr Q1H PRN IV hypotension; Start 06/05/16 at 11:56; Stop 06/05/16 at 17:55; Status DC Albumin Human (Albuminar) 200 ml @ 200 mls/hr 1X PRN PRN IV Hypotension; Start 06/05/16 at 12:00; Stop 06/05/16 at 17:59; Status DC Acetaminophen (Tylenol) 500 mg 1X PRN PRN PO MILD PAIN / TEMP; Start 06/05/16 at 12:00; Stop 06/06/16 at 11:59; Status DC Diphenhydramine HCl (Benadryl) 25 mg 1X PRN PRN IV ITCHING; Start 06/05/16 at 12:00; Stop 06/06/16 at 11:59; Status DC Diphenhydramine HCl (Benadryl) 25 mg 1X PRN PRN IV ITCHING; Start 06/05/16 at 12:00; Stop 06/06/16 at 11:59; Status DC Sodium Chloride (Normal Saline Flush) 10 ml 1X PRN PRN IV AP catheter pack; Start 06/05/16 at 12:00; Stop 06/06/16 at 11:59; Status DC Sodium Chloride (Normal Saline Flush) 10 ml 1X PRN PRN IV BANK OFFICER catheter pack; Start 06/05/16 at 12:00; Stop 06/06/16 at 11:59; Status DC Info 1 each 1 each PRN DAILY PRN MC SEE COMMENTS; Start 06/05/16 at 12:00; Status UNV Magnesium Sulfate/ Dextrose (Magnesium Sulfate PREMIX 2GM) 50 ml @ 25 mls/hr 1X ONCE IV Last administered on 06/06/16 07:56; Start 06/06/16 at 06:45; Stop 06/06/16 at 08:44; Status DC Potassium Chloride 40 meq 40 meq 1X ONCE PO Last administered on 06/07/16 09: 31; Start 06/07/16 at 08:45; Stop 06/07/16 at 08:46; Status DC Sodium Chloride 1,000 ml @ 1,000 mls/hr Q1H PRN IV hypotension; Start 06/08/16 at 10:39; Stop 06/08/16 at 16:38; Status DC Sodium Chloride (Iv Sodium Chloride 0.9% 1000ml Bag) 1,000 ml @ 400 mls/hr Q2H30M PRN IV PATENCY; Start 06/08/16 at 10:39; Stop 06/08/16 at 22:38; Status DC Info 1 each 1 each PRN DAILY PRN MC SEE COMMENTS; Start 06/08/16 at 10:45 Sodium Chloride (Iv Sodium Chloride 0.9% 1000ml Bag) 1,000 ml @ 75 mls/hr [id number] IV Last administered on 06/10/16 04:19; Start 06/08/16 at 11:45 Iohexol (Omnipaque 240 Mg/ml) 50 ml 1X ONCE PO Last administered on 06/08/16 15:15; Start 06/08/16 at 15:15; Stop 06/08/16 at 15:16; Status DC Lidocaine/Sodium Bicarbonate (Buffered Lidocaine 1%) 20 ml STK-MED ONCE IJ ; Start 06/09/16 at 09:54; Stop 06/09/16 at 09:55; Status DC Midazolam HCl (Versed) 2 mg STK-MED ONCE .ROUTE ; Start 06/09/16 at 15:03; Stop 06/09/16 at 15:04; Status DC Fentanyl Citrate (Fentanyl 2ml Vial) 100 mcg STK-MED ONCE .ROUTE ; Start at 15:03; Stop 06/09/16 at 15:04; Status DC Lidocaine/Sodium Bicarbonate (Buffered Lidocaine 1%) 20 ml 1X ONCE IJ Last administered on 06/09/16 16:35; Start 06/09/16 at 15:15; Stop 06/09/16 at 15:17 ; Status DC Midazolam HCl (Versed) 2 mg 1X ONCE IV Last administered on 06/09/16 16:35; Start 06/09/16 at 15:15; Stop 06/09/16 at 15:17; Status DC Fentanyl Citrate 100 mcg 100 mcg 1X ONCE IV Last administered on 06/09/16 16: 35; Start 06/09/16 at 15:15; Stop 06/09/16 at 15:17; Status DC Desmopressin Acetate/Sodium Chloride (Ddavp/Iv Sodium Chloride 0.9% 50ml) 55 ml @ 110 mls/hr 1X ONCE IV Last administered on 06/09/16 16:34; Start 06/09/16 at 16:30; Stop 06/09/16 at 16:59; Status DC Iohexol (Omnipaque 350 Mg/ml) 90 ml 1X ONCE IV Last administered on 06/10/16 07:53; Start 06/10/16 at 07:30; Stop 06/10/16 at 07:31; Status DC Info 1 each 1 each PRN DAILY PRN MC SEE COMMENTS; Start 06/10/16 at 07:30; Stop 06/12/16 at 07:29 Sodium Chloride 1,000 ml @ 1,000 mls/hr Q1H PRN IV hypotension; Start 06/10/16 at 08:19; Stop 06/10/16 at 16:00 Albumin Human (Albuminar) 200 ml @ 200 mls/hr 1X PRN PRN IV Hypotension; Start 06/10/16 at 08:30; Stop 06/10/16 at 16:00 Acetaminophen (Tylenol) 500 mg 1X PRN PRN PO MILD PAIN / TEMP; Start 06/10/16 at 08:30; Stop 06/10/16 at 16:00 Diphenhydramine HCl (Benadryl) 25 mg 1X PRN PRN IV ITCHING; Start 06/10/16 at 08:30; Stop 06/10/16 at 16:00 Diphenhydramine HCl (Benadryl) 25 mg 1X PRN PRN IV ITCHING; Start 06/10/16 at 08:30; Stop 06/10/16 at 16:00 Sodium Chloride (Normal Saline Flush) 10 ml 1X PRN PRN IV AP catheter pack; Start 06/10/16 at 08:30; Stop 06/10/16 at 16:00 Sodium Chloride (Normal Saline Flush) 10 ml 1X PRN PRN IV [employer] OFFICER catheter pack; Start 06/10/16 at 08:30; Stop 06/10/16 at 16:00 Labetalol HCl 10 mg 10 mg PRN Q1HR PRN IVP SBP > 180; Start 06/10/16 at 08:30; Stop 06/10/16 at 16:00 Sodium Chloride (Iv Sodium Chloride 0.9% 1000ml Bag) 1,000 ml @ 400 mls/hr Q2H30M PRN IV PATENCY; Start 06/10/16 at 08:19; Stop 06/10/16 at 16:00 Info (PHARMACY MONITORING -- do not chart) 1 each PRN DAILY PRN MC SEE COMMENTS ; Start 06/10/16 at 08:30; Status UNV Darbepoetin Ankit (Aranesp) 60 mcg [id number] SQ ; Start 06/10/16 at 21:00 Active Scripts Active Pantoprazole Sodium 40 Mg Tablet.dr 40 Mg PO DAILYAC 30 Days Reported Neomycin Sulfate 500 Mg Tablet 1 Tab PO BID Spironolactone 50 Mg Tablet 1 Tab PO DAILY Mag-Oxide (Magnesium Oxide) 400 Mg Tablet 2 Tab PO BID Vitamin D3 (Cholecalciferol (Vitamin D3)) 400 Unit Tablet 400 Unit PO BID Fish Oil Conc 1,000 mg Softgel ([place]-3/Dha/Epa/Fish Oil) 1,000 Mg Capsule 3, 000 Mg PO DAILY Multiple Vitamin (Multivitamin With Minerals) 1 Each Tablet 1 Each PO Corzide 40-5 Tablet (Nadolol/Bendroflumethiazide) 1 Each Tablet 0.5 Tab PO DAILY Coenzyme Q10 (Ubidecarenone) 100 Mg Capsule 100 Mg PO DAILY Calcium (Calcium Carbonate) 600 Mg Tablet 600 Mg PO BID Vitals/I & O Vital Sign - Last 24 Hours 06/09/16 06/09/16 06/09/16 06/09/16 15:19 15:23 15:28 15:32 Pulse 107 107 107 107 Resp 18 18 18 18 Pulse Ox 98 98 98 98 O2 Delivery Nasal Cannula Nasal Cannula Nasal Cannula Nasal Cannula O2 Flow Rate 2.0 2.0 2.0 2.0 06/09/16 06/09/16 06/09/16 06/09/16 15:37 15:43 15:50 15:57 Pulse 109 109 109 109 Resp 18 18 18 18 Pulse Ox 98 98 98 94 O2 Delivery Nasal Cannula Nasal Cannula Nasal Cannula Room Air O2 Flow Rate 2.0 2.0 2.0 2.0 06/09/16 06/09/16 06/09/16 06/09/16 16:09 16:35 16:57 17:00 Temp 97.5 97.5 Pulse 107 112 Resp 19 B/P 126/74 Pulse Ox 92 92 92 O2 Delivery Room Air Room Air Room Air Room Air 06/09/16 06/09/16 06/09/16 06/09/16 17:15 17:30 20:00 20:00 Temp 97.5 97.5 97.5 97.5 97.5 97.5 Pulse 116 126 91 Resp 16 B/P 113/70 118/68 121/74 Pulse Ox 91 92 90 O2 Delivery Room Air Room Air Room Air Room Air 06/09/16 06/09/16 06/09/16 06/09/16 20:09 20:30 21:00 21:09 Pulse 102 97 B/P 114/67 113/67 Pulse Ox 90 90 O2 Delivery Room Air Room Air Room Air Room Air 06/09/16 06/09/16 06/09/16 06/10/16 21:11 22:00 23:00 03:07 Temp 98.1 98.1 98.1 98.1 Pulse 102 112 98 Resp 20 B/P 107/64 104/58 110/71 Pulse Ox 91 93 91 90 O2 Delivery Room Air Room Air Room Air Room Air 06/10/16 06/10/16 06/10/16 06/10/16 07:00 07:12 08:00 12:50 Temp 98.4 97.7 98.4 97.7 Pulse 100 109 Resp 18 B/P 131/68 106/56 Pulse Ox 92 91 O2 Delivery Room Air Room Air Room Air 06/10/16 13:05 Temp 97.7 97.7 Pulse 110 Resp 18 B/P 108/58 Intake and Output 06/09/16 06/09/16 06/10/16 15:00 23:00 07:00 Intake Total 368 ml 50 ml Balance 368 ml 50 ml MARCEL ENGLISH III DO Jun 10, 2016 13:25
[2016-06-10] MEDS ORDERED: DARBEPOETIN ALFA 60 MCG/0.3 ML DISP.SYRIN. SQ SCH (21:00)
[2016-06-10] MEDS: HYDROCODONE/APAP 5/325MG TABLET. PO PRN (22:14)
[2016-06-11] VITALS (7 sets, daily range): BP systolic 120–222; BP diastolic 65–127
[2016-06-11 04:13] LABS: CALCIUM 8.3 mg/dL (8.5-10.1); CREATININE 1.8 mg/dL (0.6-1.0); GFR 27.7; POTASSIUM 3.3 mmol/L (3.5-5.1)
[2016-06-11 04:49] LABS: HEMOGLOBIN 8.4 g/dL (12.0-15.5); RED BLOOD COUNT 2.7 x10^6/uL (3.50-5.40); RED CELL DISTRIBUTION WIDTH 18.5 % (11.5-14.5); WHITE BLOOD COUNT 8.4 x10^3/uL (4.0-11.0)
[2016-06-11] MEDS: IPRATRPIUM/ALBUTEROL 0.5/2.5MG 3 ML NEBU. NEB SCH ×3 (06:43→19:42)
[2016-06-11] MEDS: PANTOPRAZOLE 40 MG TABLET. PO SCH (08:28)
[2016-06-11] MEDS: LACTULOSE 20 GM/30 ML SOLUTION. PO SCH ×2 (08:28→21:00)
[2016-06-11] MEDS: RIFAXIMIN 550 MG TABLET PO SCH ×2 (08:28→22:00)
[2016-06-11] MEDS: MAGNESIUM OXIDE 400 MG TABLET PO SCH (08:29)
--- NOTE | 2016-06-11 10:36 | PDOC ---
PROGRESS NOTES Subjective Subjective No new complaints. Objective Objective Vital Signs Date Time Temp Pulse Resp B/P Pulse Ox O2 Delivery O2 Flow Rate FiO2 06/11/16 06:43 91 Room Air 06/11/16 03:00 97.9 98 20 144/69 97.9 06/09/16 15:57 2.0 Intake and Output 06/11/16 07:00 Intake Total 1350 ml Output Total 550 ml Balance 800 ml Intake Oral 850 ml Blood Product IV Normal Saline Flush 500 ml Output Urine Total 550 ml # Voids 2 # Bowel Movements 2 Physical Exam Physical Exam She is sitting up in bedside recliner and continues with cognitive deficits but walking with roller walker. Assessment Assessment Problems Medical Problems: (1) Altered mental status Status: Acute (2) Hyperammonemia Status: Acute Plan Plan of Care To assisted living facility or home with family when medically stable. Comment Review of Relevant I have reviewed the following items amy (where applicable) has been applied. Labs Laboratory Tests Test 06/10/16 03:27 06/11/16 03:17 White Blood Count 9.0x10^3/uL (4.0-11.0) 8.4x10^3/uL (4.0-11.0) Red Blood Count 2.15x10^6/uL (3.50-5.40) 2.70x10^6/uL (3.50-5.40) Hemoglobin 6.9g/dL (12.0-15.5) 8.4g/dL (12.0-15.5) Hematocrit 20.3% (36.0-47.0) 25.0% (36.0-47.0) Mean Corpuscular Volume 95fL (79-100) 93fL (79-100) Mean Corpuscular Hemoglobin 32pg (25-35) 31pg (25-35) Mean Corpuscular Hemoglobin Concent 34g/dL (31-37) 34g/dL (31-37) Red Cell Distribution Width 19.4% (11.5-14.5) 18.5% (11.5-14.5) Platelet Count 45x10^3/uL (140-400) 51x10^3/uL (140-400) Neutrophils (%) (Auto) 62% (31-73) Lymphocytes (%) (Auto) 15% (24-48) Monocytes (%) (Auto) 19% (0-9) Eosinophils (%) (Auto) 3% (0-3) Basophils (%) (Auto) 1% (0-3) Neutrophils # (Auto) 5.6x10^3uL (1.8-7.7) Lymphocytes # (Auto) 1.3x10^3/uL (1.0-4.8) Monocytes # (Auto) 1.7x10^3/uL (0.0-1.1) Eosinophils # (Auto) 0.3x10^3/uL (0.0-0.7) Basophils # (Auto) 0.1x10^3/uL (0.0-0.2) Segmented Neutrophils % 65% (35-66) Lymphocytes % 14% (24-48) Monocytes % 17% (0-10) Eosinophils % 4% (0-5) Platelet Estimate Decreased (ADEQUATE) Anisocytosis Slight Rouleau Present Sodium Level 138mmol/L (136-145) 140mmol/L (136-145) Potassium Level 3.5mmol/L (3.5-5.1) 3.3mmol/L (3.5-5.1) Chloride Level 102mmol/L (98-107) 104mmol/L (98-107) Carbon Dioxide Level 26mmol/L (21-32) 27mmol/L (21-32) Anion Gap 10 (6-14) 9 (6-14) Blood Urea Nitrogen 10mg/dL (7-20) 5mg/dL (7-20) Creatinine 2.6mg/dL (0.6-1.0) 1.8mg/dL (0.6-1.0) Estimated GFR (Cockcroft-Gault) 18.1 27.7 Glucose Level 132mg/dL (70-99) 92mg/dL (70-99) Calcium Level 8.6mg/dL (8.5-10.1) 8.3mg/dL (8.5-10.1) Ammonia 55mcmol/L (11-34) Laboratory Tests Test 06/11/16 03:17 White Blood Count 8.4x10^3/uL (4.0-11.0) Red Blood Count 2.70x10^6/uL (3.50-5.40) Hemoglobin 8.4g/dL (12.0-15.5) Hematocrit 25.0% (36.0-47.0) Mean Corpuscular Volume 93fL (79-100) Mean Corpuscular Hemoglobin 31pg (25-35) Mean Corpuscular Hemoglobin Concent 34g/dL (31-37) Red Cell Distribution Width 18.5% (11.5-14.5) Platelet Count 51x10^3/uL (140-400) Sodium Level 140mmol/L (136-145) Potassium Level 3.3mmol/L (3.5-5.1) Chloride Level 104mmol/L (98-107) Carbon Dioxide Level 27mmol/L (21-32) Anion Gap 9 (6-14) Blood Urea Nitrogen 5mg/dL (7-20) Creatinine 1.8mg/dL (0.6-1.0) Estimated GFR (Cockcroft-Gault) 27.7 Glucose Level 92mg/dL (70-99) Calcium Level 8.3mg/dL (8.5-10.1) Microbiology 05/28/16 Blood Culture - Final, Complete NO GROWTH AFTER 5 DAYS Medications Current Medications Sodium Chloride (Iv Sodium Chloride 0.9% 1000ml Bag) 1,000 ml @ 1,000 mls/hr 1X ONCE IV Last administered on 05/28/16 16:07; Start 05/28/16 at 15:45; Stop 05/28/16 at 16:44; Status DC Ondansetron HCl 4 mg 4 mg PRN Q8HRS PRN IV NAUSEA/VOMITING; Start 05/28/16 at 17 :15; Stop 05/29/16 at 09:22; Status DC Sodium Chloride (Iv Sodium Chloride 0.9% 1000ml Bag) 1,000 ml @ 125 mls/hr Q8H IV ; Start 05/28/16 at 17:07; Stop 05/28/16 at 18:38; Status DC Lactulose 20 gm 20 gm PRN BID PRN PO CONSTIPATION; Start 05/28/16 at 18:45; Stop 05/29/16 at 10:00; Status DC Sodium Chloride (Iv Sodium Chloride 0.9% 1000ml Bag) 1,000 ml @ 100 mls/hr Q10H IV Last administered on 06/01/16 01:26; Start 05/28/16 at 19:00; Stop at 15:33; Status DC Acetaminophen (Tylenol) 325 mg PRN Q6HRS PRN PO MILD PAIN / TEMP Last administered on 06/05/16 17:40; Start 05/28/16 at 19:00 Acetaminophen/ Hydrocodone Bitart (Lortab 5/325) 1 tab PRN Q6HRS PRN PO MODERATE TO SEVERE PAIN Last administered on 06/10/16 22:14; Start 05/28/16 at 19:00 Hydralazine HCl (Apresoline) 10 mg PRN Q4HRS PRN IVP ELEVATED BP, SEE COMMENTS ; Start 05/28/16 at 19:00 Ondansetron HCl (Zofran) 4 mg PRN Q8HRS PRN IV NAUSEA/VOMITING Last administered on 05/30/16 03:36; Start 05/28/16 at 19:00 Albuterol Sulfate (Ventolin Neb Soln) 2.5 mg PRN Q4HRS PRN NEB SHORTNESS OF BREATH; Start 05/28/16 at 19:00 Lactulose 20 gm BID PO Last administered on 05/30/16 08:29; Start 05/29/16 at 10 :00; Stop 05/30/16 at 14:43; Status DC Pantoprazole Sodium (Protonix) 40 mg DAILYAC PO Last administered on 06/11/16 08:28; Start 05/29/16 at 10:00 Lactulose 20 gm TID PO ; Start 05/31/16 at 09:00; Stop 05/31/16 at 09:00; Status DC Lactulose 20 gm TID PO Last administered on 05/31/16 08:33; Start 05/30/16 at 14 :45; Stop 05/31/16 at 09:45; Status DC Rifaximin (Xifaxan) 550 mg Q12HR PO Last administered on 06/11/16 08:28; Start 05/30/16 at 15:00 Lactulose 20 gm 20 gm [id number] PO Last administered on 05/31/16 14:59; Start at 14:00; Stop 06/02/16 at 10:11; Status DC Magnesium Sulfate/ Dextrose 50 ml @ 25 mls/hr PRN DAILY PRN IV for Mag < 1.7 on am labs; Start 06/01/16 at 15:30 Sodium Bicarbonate/ Sodium Chloride (Iv Sodium Chloride 0.45%) 1,075 ml @ 100 mls/hr [id number] IV Last administered on 06/02/16 11:51; Start 06/01/16 at 15:45; Stop 06/02/16 at 18:18; Status DC Potassium Chloride (Klor-Con) 40 meq 1X ONCE PO Last administered on 06/02/16 08:39; Start 06/02/16 at 09:00; Stop 06/02/16 at 09:01; Status DC Lactulose 20 gm PRN BID PRN PO CONSTIPATION; Start 06/03/16 at 09:00; Stop at 12:00; Status DC Lactulose 20 gm BID PO Last administered on 06/02/16 11:49; Start 06/02/16 at 12 :00; Stop 06/03/16 at 10:38; Status DC Methylprednisolone Acetate (Depo-Medrol 40mg Vial) 40 mg 1X ONCE IM Last administered on 06/02/16 16:46; Start 06/02/16 at 16:30; Stop 06/02/16 at 16:31; Status DC Bupivacaine HCl (Sensorcaine-Mpf 0.25%) 10 ml 1X ONCE IJ Last administered on 06/02/16 16:46; Start 06/02/16 at 16:30; Stop 06/02/16 at 16:31; Status DC Methylprednisolone Acetate 40 mg 40 mg 1X ONCE IM Last administered on 16:45; Start 06/02/16 at 16:45; Stop 06/02/16 at 16:46; Status DC Sodium Bicarbonate/ Potassium Chloride/Sodium Chloride (Iv Sodium Chloride 0.45% ) 1,095 ml @ 100 mls/hr [id number] IV Last administered on 06/02/16 21:05; Start 06/02/16 at 18:30; Stop 06/03/16 at 05:26; Status DC Potassium Chloride 40 meq 40 meq 1X PRN PRN PO if repeat K < 3.7; Start at 18:15; Stop 06/03/16 at 05:00; Status DC Sodium Bicarbonate 75 meq/Sodium Chloride 1,075 ml @ 100 mls/hr [id number] IV Last administered on 06/04/16 03:30; Start 06/03/16 at 06:00; Stop 06/04/16 at 11: 39; Status DC Magnesium Sulfate/ Dextrose (Magnesium Sulfate PREMIX 4GM) 100 ml @ 25 mls/hr 1X ONCE IV Last administered on 06/03/16 10:10; Start 06/03/16 at 09:00; Stop 06/03/16 at 12:59; Status DC Magnesium Oxide (Magnesium Oxide) 400 mg DAILY PO Last administered on 08:29; Start 06/03/16 at 09:00 Lidocaine/Sodium Bicarbonate (Buffered Lidocaine 1%) 20 ml STK-MED ONCE IJ ; Start 06/03/16 at 10:23; Stop 06/03/16 at 10:24; Status DC Midazolam HCl (Versed) 5 mg STK-MED ONCE .ROUTE ; Start 06/03/16 at 10:24; Stop 06/03/16 at 10:25; Status DC Fentanyl Citrate (Fentanyl 5ml Vial) 250 mcg STK-MED ONCE .ROUTE ; Start at 10:24; Stop 06/03/16 at 10:25; Status DC Lidocaine/Sodium Bicarbonate (Buffered Lidocaine 1%) 20 ml 1X ONCE IJ Last administered on 06/03/16 10:57; Start 06/03/16 at 10:45; Stop 06/03/16 at 10:46; Status DC Midazolam HCl (Versed) 3 mg 1X ONCE IV Last administered on 06/03/16 10:58; Start 06/03/16 at 10:45; Stop 06/03/16 at 10:46; Status DC Fentanyl Citrate (Fentanyl 5ml Vial) 150 mcg 1X ONCE IV Last administered on 10:58; Start 06/03/16 at 10:45; Stop 06/03/16 at 10:46; Status DC Lactulose 20 gm DAILY PO Last administered on 06/04/16 09:02; Start 06/04/16 at 09:00; Stop 06/04/16 at 12:32; Status DC Albuterol/ Ipratropium (Duoneb) 3 ml RTQID NEB Last administered on 06/11/16 06:43; Start 06/03/16 at 20:00 Alprazolam (Xanax) 0.25 mg PRN Q8HRS PRN PO ANXIETY / AGITATION Last administered on 06/10/16 12:13; Start 06/04/16 at 10:15 Haloperidol Lactate (Haldol) 0.5 mg PRN Q6HRS PRN IVP AGITATION, 2ND CHOICE; Start 06/04/16 at 10:15 Lactulose 20 gm BID PO Last administered on 06/11/16 08:28; Start 06/04/16 at 21:00 Midazolam HCl (Versed) 2 mg STK-MED ONCE .ROUTE ; Start 06/04/16 at 12:35; Stop 06/04/16 at 12:36; Status DC Fentanyl Citrate 100 mcg 100 mcg STK-MED ONCE .ROUTE ; Start 06/04/16 at 12:35; Stop 06/04/16 at 12:36; Status DC Cefazolin Sodium (Ancef 1gm Ivpb For Omni) 50 ml @ As Directed STK-MED ONCE IV ; Start 06/04/16 at 12:35; Stop 06/04/16 at 12:36; Status DC Heparin Sodium (Porcine) 10,000 unit STK-MED ONCE .ROUTE ; Start 06/04/16 at 12: 37; Stop 06/04/16 at 12:38; Status DC Lidocaine/ Epinephrine 20 ml 20 ml STK-MED ONCE .ROUTE ; Start 06/04/16 at 12:37 ; Stop 06/04/16 at 12:38; Status DC Heparin Sodium/ Sodium Chloride 500 ml @ As Directed STK-MED ONCE .ROUTE ; Start 06/04/16 at 12:37; Stop 06/04/16 at 12:38; Status DC Heparin Sodium/ Sodium Chloride 1,000 unit 1X ONCE IART Last administered on 13:09; Start 06/04/16 at 13:15; Stop 06/04/16 at 13:16; Status DC Midazolam HCl (Versed) 2 mg 1X ONCE IV Last administered on 06/04/16 13:12; Start 06/04/16 at 13:15; Stop 06/04/16 at 13:16; Status DC Fentanyl Citrate 100 mcg 100 mcg 1X ONCE IV Last administered on 06/04/16 13: 12; Start 06/04/16 at 13:15; Stop 06/04/16 at 13:16; Status DC Cefazolin Sodium (Ancef 1gm Ivpb For Omni) 50 ml @ 100 mls/hr 1X ONCE IV Last administered on 06/04/16 13:13; Start 06/04/16 at 13:15; Stop 06/04/16 at 13: 44; Status DC Heparin Sodium (Porcine) 2,600 unit 1X ONCE INT CAT Last administered on 13:10; Start 06/04/16 at 13:15; Stop 06/04/16 at 13:16; Status DC Lidocaine/ Epinephrine 20 ml 20 ml 1X ONCE IJ Last administered on 06/04/16 13 :11; Start 06/04/16 at 13:15; Stop 06/04/16 at 13:16; Status DC Sodium Chloride (Iv Sodium Chloride 0.9% 1000ml Bag) 1,000 ml @ 1,000 mls/hr Q1H PRN IV hypotension; Start 06/04/16 at 18:12; Stop 06/05/16 at 00:11; Status DC Sodium Chloride (Normal Saline Flush) 10 ml 1X PRN PRN IV AP catheter pack; Start 06/04/16 at 18:15; Stop 06/05/16 at 18:14; Status Cancel Sodium Chloride (Normal Saline Flush) 10 ml 1X PRN PRN IV DEPUTY JAILER catheter pack; Start 06/04/16 at 18:15; Stop 06/05/16 at 18:14; Status Cancel Info (PHARMACY MONITORING -- do not chart) 1 each PRN DAILY PRN MC SEE COMMENTS ; Start 06/04/16 at 18:15; Status UNV Info (PHARMACY MONITORING -- do not chart) 1 each PRN DAILY PRN MC SEE COMMENTS ; Start 06/04/16 at 18:15; Stop 06/08/16 at 17:45; Status DC Albuterol/ Ipratropium 3 ml 3 ml 1X ONCE NEB Last administered on 06/05/16 00 :29; Start 06/05/16 at 00:15; Stop 06/05/16 at 00:16; Status DC Sodium Chloride 1,000 ml @ 1,000 mls/hr Q1H PRN IV hypotension; Start 06/05/16 at 11:56; Stop 06/05/16 at 17:55; Status DC Albumin Human (Albuminar) 200 ml @ 200 mls/hr 1X PRN PRN IV Hypotension; Start 06/05/16 at 12:00; Stop 06/05/16 at 17:59; Status DC Acetaminophen (Tylenol) 500 mg 1X PRN PRN PO MILD PAIN / TEMP; Start 06/05/16 at 12:00; Stop 06/06/16 at 11:59; Status DC Diphenhydramine HCl (Benadryl) 25 mg 1X PRN PRN IV ITCHING; Start 06/05/16 at 12:00; Stop 06/06/16 at 11:59; Status DC Diphenhydramine HCl (Benadryl) 25 mg 1X PRN PRN IV ITCHING; Start 06/05/16 at 12:00; Stop 06/06/16 at 11:59; Status DC Sodium Chloride (Normal Saline Flush) 10 ml 1X PRN PRN IV AP catheter pack; Start 06/05/16 at 12:00; Stop 06/06/16 at 11:59; Status DC Sodium Chloride (Normal Saline Flush) 10 ml 1X PRN PRN IV DEPUTY JAILER catheter pack; Start 06/05/16 at 12:00; Stop 06/06/16 at 11:59; Status DC Info 1 each 1 each PRN DAILY PRN MC SEE COMMENTS; Start 06/05/16 at 12:00; Status UNV Magnesium Sulfate/ Dextrose (Magnesium Sulfate PREMIX 2GM) 50 ml @ 25 mls/hr 1X ONCE IV Last administered on 06/06/16 07:56; Start 06/06/16 at 06:45; Stop 06/06/16 at 08:44; Status DC Potassium Chloride 40 meq 40 meq 1X ONCE PO Last administered on 06/07/16 09: 31; Start 06/07/16 at 08:45; Stop 06/07/16 at 08:46; Status DC Sodium Chloride 1,000 ml @ 1,000 mls/hr Q1H PRN IV hypotension; Start 06/08/16 at 10:39; Stop 06/08/16 at 16:38; Status DC Sodium Chloride (Iv Sodium Chloride 0.9% 1000ml Bag) 1,000 ml @ 400 mls/hr Q2H30M PRN IV PATENCY; Start 06/08/16 at 10:39; Stop 06/08/16 at 22:38; Status DC Info 1 each 1 each PRN DAILY PRN MC SEE COMMENTS; Start 06/08/16 at 10:45 Sodium Chloride (Iv Sodium Chloride 0.9% 1000ml Bag) 1,000 ml @ 75 mls/hr [id number] IV Last administered on 06/10/16 22:20; Start 06/08/16 at 11:45 Iohexol (Omnipaque 240 Mg/ml) 50 ml 1X ONCE PO Last administered on 06/08/16 15:15; Start 06/08/16 at 15:15; Stop 06/08/16 at 15:16; Status DC Lidocaine/Sodium Bicarbonate (Buffered Lidocaine 1%) 20 ml STK-MED ONCE IJ ; Start 06/09/16 at 09:54; Stop 06/09/16 at 09:55; Status DC Midazolam HCl (Versed) 2 mg STK-MED ONCE .ROUTE ; Start 06/09/16 at 15:03; Stop 06/09/16 at 15:04; Status DC Fentanyl Citrate (Fentanyl 2ml Vial) 100 mcg STK-MED ONCE .ROUTE ; Start at 15:03; Stop 06/09/16 at 15:04; Status DC Lidocaine/Sodium Bicarbonate (Buffered Lidocaine 1%) 20 ml 1X ONCE IJ Last administered on 06/09/16 16:35; Start 06/09/16 at 15:15; Stop 06/09/16 at 15:17 ; Status DC Midazolam HCl (Versed) 2 mg 1X ONCE IV Last administered on 06/09/16 16:35; Start 06/09/16 at 15:15; Stop 06/09/16 at 15:17; Status DC Fentanyl Citrate 100 mcg 100 mcg 1X ONCE IV Last administered on 06/09/16 16: 35; Start 06/09/16 at 15:15; Stop 06/09/16 at 15:17; Status DC Desmopressin Acetate/Sodium Chloride (Ddavp/Iv Sodium Chloride 0.9% 50ml) 55 ml @ 110 mls/hr 1X ONCE IV Last administered on 06/09/16 16:34; Start 06/09/16 at 16:30; Stop 06/09/16 at 16:59; Status DC Iohexol (Omnipaque 350 Mg/ml) 90 ml 1X ONCE IV Last administered on 06/10/16t 07:53; Start 06/10/16 at 07:30; Stop 06/10/16 at 07:31; Status DC Info 1 each 1 each PRN DAILY PRN MC SEE COMMENTS; Start 06/10/16 at 07:30; Stop 06/12/16 at 07:29 Sodium Chloride 1,000 ml @ 1,000 mls/hr Q1H PRN IV hypotension; Start 06/10/16 at 08:19; Stop 06/10/16 at 16:00; Status DC Albumin Human (Albuminar) 200 ml @ 200 mls/hr 1X PRN PRN IV Hypotension; Start 06/10/16 at 08:30; Stop 06/10/16 at 16:00; Status DC Acetaminophen (Tylenol) 500 mg 1X PRN PRN PO MILD PAIN / TEMP; Start 06/10/16 at 08:30; Stop 06/10/16 at 16:00; Status DC Diphenhydramine HCl (Benadryl) 25 mg 1X PRN PRN IV ITCHING; Start 06/10/16 at 08:30; Stop 06/10/16 at 16:00; Status DC Diphenhydramine HCl (Benadryl) 25 mg 1X PRN PRN IV ITCHING; Start 06/10/16 at 08:30; Stop 06/10/16 at 16:00; Status DC Sodium Chloride (Normal Saline Flush) 10 ml 1X PRN PRN IV AP catheter pack; Start 06/10/16 at 08:30; Stop 06/10/16 at 16:00; Status DC Sodium Chloride (Normal Saline Flush) 10 ml 1X PRN PRN IV DEPUTY JAILER catheter pack; Start 06/10/16 at 08:30; Stop 06/10/16 at 16:00; Status DC Labetalol HCl 10 mg 10 mg PRN Q1HR PRN IVP SBP > 180; Start 06/10/16 at 08:30; Stop 06/10/16 at 16:00; Status DC Sodium Chloride (Iv Sodium Chloride 0.9% 1000ml Bag) 1,000 ml @ 400 mls/hr Q2H30M PRN IV PATENCY; Start 06/10/16 at 08:19; Stop 06/10/16 at 16:00; Status DC Info (PHARMACY MONITORING -- do not chart) 1 each PRN DAILY PRN MC SEE COMMENTS ; Start 06/10/16 at 08:30; Status UNV Darbepoetin Ankit (Aranesp) 60 mcg [id number] SQ Last administered on 06/10/16t 22 :14; Start 06/10/16 at 21:00 Active Scripts Active Pantoprazole Sodium 40 Mg Tablet.dr 40 Mg PO DAILYAC 30 Days Reported Neomycin Sulfate 500 Mg Tablet 1 Tab PO BID Spironolactone 50 Mg Tablet 1 Tab PO DAILY Mag-Oxide (Magnesium Oxide) 400 Mg Tablet 2 Tab PO BID Vitamin D3 (Cholecalciferol (Vitamin D3)) 400 Unit Tablet 400 Unit PO BID Fish Oil Conc 1,000 mg Softgel ([place]-3/Dha/Epa/Fish Oil) 1,000 Mg Capsule 3, 000 Mg PO DAILY Multiple Vitamin (Multivitamin With Minerals) 1 Each Tablet 1 Each PO Corzide 40-5 Tablet (Nadolol/Bendroflumethiazide) 1 Each Tablet 0.5 Tab PO DAILY Coenzyme Q10 (Ubidecarenone) 100 Mg Capsule 100 Mg PO DAILY Calcium (Calcium Carbonate) 600 Mg Tablet 600 Mg PO BID Vitals/I & O Vital Sign - Last 24 Hours 06/10/16 06/10/16 06/10/16 06/10/16 12:50 13:05 14:02 14:57 Temp 97.7 97.7 97.9 98.2 97.7 97.7 97.9 98.2 Pulse 109 110 105 103 Resp 18 18 18 18 B/P 106/56 108/58 128/75 138/80 06/10/16 06/10/16 06/10/16 06/10/16 15:00 15:24 19:00 19:33 Temp 98.6 98.1 98.6 98.1 Pulse 97 118 Resp 20 20 B/P 128/72 123/73 Pulse Ox 91 92 92 93 O2 Delivery Room Air Room Air Room Air Room Air 06/10/16 06/10/16 06/10/16 06/10/16 20:00 22:14 23:00 23:14 Temp 97.9 97.9 Pulse 105 Resp 20 B/P 119/77 Pulse Ox 94 92 O2 Delivery Room Air Room Air Room Air Room Air 06/11/16 06/11/16 03:00 06:43 Temp 97.9 97.9 Pulse 98 Resp 20 B/P 144/69 Pulse Ox 92 91 O2 Delivery Room Air Room Air Intake and Output 06/10/16 06/10/16 06/11/16 15:00 23:00 07:00 Intake Total 500 ml 850 ml Output Total 550 ml 0 ml Balance 500 ml 300 ml 0 ml CESARIO ABARCA MD Jun 11, 2016 10:36
[2016-06-11] MEDS: IV NORMAL SALINE 1000ML BAG 1,000 ML IV SCH (11:34)
--- NOTE | 2016-06-11 11:48 | PDOC ---
G I PROGRESS NOTE Reason for Follow-up Cirrhosis/confusion Subjective Alert/wants to go home Physical Exam Lungs clear CV S1 S2 ABD +BS, soft, nontender Review of Relevant I have reviewed the following items amy (where applicable) has been applied. Labs Laboratory Tests Test 06/10/16 03:27 06/11/16 03:17 White Blood Count 9.0x10^3/uL (4.0-11.0) 8.4x10^3/uL (4.0-11.0) Red Blood Count 2.15x10^6/uL (3.50-5.40) 2.70x10^6/uL (3.50-5.40) Hemoglobin 6.9g/dL (12.0-15.5) 8.4g/dL (12.0-15.5) Hematocrit 20.3% (36.0-47.0) 25.0% (36.0-47.0) Mean Corpuscular Volume 95fL (79-100) 93fL (79-100) Mean Corpuscular Hemoglobin 32pg (25-35) 31pg (25-35) Mean Corpuscular Hemoglobin Concent 34g/dL (31-37) 34g/dL (31-37) Red Cell Distribution Width 19.4% (11.5-14.5) 18.5% (11.5-14.5) Platelet Count 45x10^3/uL (140-400) 51x10^3/uL (140-400) Neutrophils (%) (Auto) 62% (31-73) Lymphocytes (%) (Auto) 15% (24-48) Monocytes (%) (Auto) 19% (0-9) Eosinophils (%) (Auto) 3% (0-3) Basophils (%) (Auto) 1% (0-3) Neutrophils # (Auto) 5.6x10^3uL (1.8-7.7) Lymphocytes # (Auto) 1.3x10^3/uL (1.0-4.8) Monocytes # (Auto) 1.7x10^3/uL (0.0-1.1) Eosinophils # (Auto) 0.3x10^3/uL (0.0-0.7) Basophils # (Auto) 0.1x10^3/uL (0.0-0.2) Segmented Neutrophils % 65% (35-66) Lymphocytes % 14% (24-48) Monocytes % 17% (0-10) Eosinophils % 4% (0-5) Platelet Estimate Decreased (ADEQUATE) Anisocytosis Slight Rouleau Present Sodium Level 138mmol/L (136-145) 140mmol/L (136-145) Potassium Level 3.5mmol/L (3.5-5.1) 3.3mmol/L (3.5-5.1) Chloride Level 102mmol/L (98-107) 104mmol/L (98-107) Carbon Dioxide Level 26mmol/L (21-32) 27mmol/L (21-32) Anion Gap 10 (6-14) 9 (6-14) Blood Urea Nitrogen 10mg/dL (7-20) 5mg/dL (7-20) Creatinine 2.6mg/dL (0.6-1.0) 1.8mg/dL (0.6-1.0) Estimated GFR (Cockcroft-Gault) 18.1 27.7 Glucose Level 132mg/dL (70-99) 92mg/dL (70-99) Calcium Level 8.6mg/dL (8.5-10.1) 8.3mg/dL (8.5-10.1) Ammonia 55mcmol/L (11-34) Serum Folate 5.81ng/ml (3.2-20.0) Laboratory Tests Test 06/11/16 03:17 White Blood Count 8.4x10^3/uL (4.0-11.0) Red Blood Count 2.70x10^6/uL (3.50-5.40) Hemoglobin 8.4g/dL (12.0-15.5) Hematocrit 25.0% (36.0-47.0) Mean Corpuscular Volume 93fL (79-100) Mean Corpuscular Hemoglobin 31pg (25-35) Mean Corpuscular Hemoglobin Concent 34g/dL (31-37) Red Cell Distribution Width 18.5% (11.5-14.5) Platelet Count 51x10^3/uL (140-400) Sodium Level 140mmol/L (136-145) Potassium Level 3.3mmol/L (3.5-5.1) Chloride Level 104mmol/L (98-107) Carbon Dioxide Level 27mmol/L (21-32) Anion Gap 9 (6-14) Blood Urea Nitrogen 5mg/dL (7-20) Creatinine 1.8mg/dL (0.6-1.0) Estimated GFR (Cockcroft-Gault) 27.7 Glucose Level 92mg/dL (70-99) Calcium Level 8.3mg/dL (8.5-10.1) Serum Folate 5.81ng/ml (3.2-20.0) Microbiology 05/28/16 Blood Culture - Final, Complete NO GROWTH AFTER 5 DAYS Medications Current Medications Sodium Chloride (Iv Sodium Chloride 0.9% 1000ml Bag) 1,000 ml @ 1,000 mls/hr 1X ONCE IV Last administered on 05/28/16 16:07; Start 05/28/16 at 15:45; Stop 05/28/16 at 16:44; Status DC Ondansetron HCl 4 mg 4 mg PRN Q8HRS PRN IV NAUSEA/VOMITING; Start 05/28/16 at 17 :15; Stop 05/29/16 at 09:22; Status DC Sodium Chloride (Iv Sodium Chloride 0.9% 1000ml Bag) 1,000 ml @ 125 mls/hr Q8H IV ; Start 05/28/16 at 17:07; Stop 05/28/16 at 18:38; Status DC Lactulose 20 gm 20 gm PRN BID PRN PO CONSTIPATION; Start 05/28/16 at 18:45; Stop 05/29/16 at 10:00; Status DC Sodium Chloride (Iv Sodium Chloride 0.9% 1000ml Bag) 1,000 ml @ 100 mls/hr Q10H IV Last administered on 06/01/16 01:26; Start 05/28/16 at 19:00; Stop at 15:33; Status DC Acetaminophen (Tylenol) 325 mg PRN Q6HRS PRN PO MILD PAIN / TEMP Last administered on 06/05/16 17:40; Start 05/28/16 at 19:00 Acetaminophen/ Hydrocodone Bitart (Lortab 5/325) 1 tab PRN Q6HRS PRN PO MODERATE TO SEVERE PAIN Last administered on 06/10/16 22:14; Start 05/28/16 at 19:00 Hydralazine HCl (Apresoline) 10 mg PRN Q4HRS PRN IVP ELEVATED BP, SEE COMMENTS ; Start 05/28/16 at 19:00 Ondansetron HCl (Zofran) 4 mg PRN Q8HRS PRN IV NAUSEA/VOMITING Last administered on 05/30/16 03:36; Start 05/28/16 at 19:00 Albuterol Sulfate (Ventolin Neb Soln) 2.5 mg PRN Q4HRS PRN NEB SHORTNESS OF BREATH; Start 05/28/16 at 19:00 Lactulose 20 gm BID PO Last administered on 05/30/16 08:29; Start 05/29/16 at 10 :00; Stop 05/30/16 at 14:43; Status DC Pantoprazole Sodium (Protonix) 40 mg DAILYAC PO Last administered on 06/11/16 08:28; Start 05/29/16 at 10:00 Lactulose 20 gm TID PO ; Start 05/31/16 at 09:00; Stop 05/31/16 at 09:00; Status DC Lactulose 20 gm TID PO Last administered on 05/31/16 08:33; Start 05/30/16 at 14 :45; Stop 05/31/16 at 09:45; Status DC Rifaximin (Xifaxan) 550 mg Q12HR PO Last administered on 06/11/16 08:28; Start 05/30/16 at 15:00 Lactulose 20 gm 20 gm [id number] PO Last administered on 05/31/16 14:59; Start at 14:00; Stop 06/02/16 at 10:11; Status DC Magnesium Sulfate/ Dextrose 50 ml @ 25 mls/hr PRN DAILY PRN IV for Mag < 1.7 on am labs; Start 06/01/16 at 15:30 Sodium Bicarbonate/ Sodium Chloride (Iv Sodium Chloride 0.45%) 1,075 ml @ 100 mls/hr [id number] IV Last administered on 06/02/16 11:51; Start 06/01/16 at 15:45; Stop 06/02/16 at 18:18; Status DC Potassium Chloride (Klor-Con) 40 meq 1X ONCE PO Last administered on 06/02/16 08:39; Start 06/02/16 at 09:00; Stop 06/02/16 at 09:01; Status DC Lactulose 20 gm PRN BID PRN PO CONSTIPATION; Start 06/03/16 at 09:00; Stop at 12:00; Status DC Lactulose 20 gm BID PO Last administered on 06/02/16 11:49; Start 06/02/16 at 12 :00; Stop 06/03/16 at 10:38; Status DC Methylprednisolone Acetate (Depo-Medrol 40mg Vial) 40 mg 1X ONCE IM Last administered on 06/02/16 16:46; Start 06/02/16 at 16:30; Stop 06/02/16 at 16:31; Status DC Bupivacaine HCl (Sensorcaine-Mpf 0.25%) 10 ml 1X ONCE IJ Last administered on 06/02/16 16:46; Start 06/02/16 at 16:30; Stop 06/02/16 at 16:31; Status DC Methylprednisolone Acetate 40 mg 40 mg 1X ONCE IM Last administered on 16:45; Start 06/02/16 at 16:45; Stop 06/02/16 at 16:46; Status DC Sodium Bicarbonate/ Potassium Chloride/Sodium Chloride (Iv Sodium Chloride 0.45% ) 1,095 ml @ 100 mls/hr [id number] IV Last administered on 06/02/16 21:05; Start 06/02/16 at 18:30; Stop 06/03/16 at 05:26; Status DC Potassium Chloride 40 meq 40 meq 1X PRN PRN PO if repeat K < 3.7; Start at 18:15; Stop 06/03/16 at 05:00; Status DC Sodium Bicarbonate 75 meq/Sodium Chloride 1,075 ml @ 100 mls/hr [id number] IV Last administered on 06/04/16 03:30; Start 06/03/16 at 06:00; Stop 06/04/16 at 11: 39; Status DC Magnesium Sulfate/ Dextrose (Magnesium Sulfate PREMIX 4GM) 100 ml @ 25 mls/hr 1X ONCE IV Last administered on 06/03/16 10:10; Start 06/03/16 at 09:00; Stop 06/03/16 at 12:59; Status DC Magnesium Oxide (Magnesium Oxide) 400 mg DAILY PO Last administered on 08:29; Start 06/03/16 at 09:00 Lidocaine/Sodium Bicarbonate (Buffered Lidocaine 1%) 20 ml STK-MED ONCE IJ ; Start 06/03/16 at 10:23; Stop 06/03/16 at 10:24; Status DC Midazolam HCl (Versed) 5 mg STK-MED ONCE .ROUTE ; Start 06/03/16 at 10:24; Stop 06/03/16 at 10:25; Status DC Fentanyl Citrate (Fentanyl 5ml Vial) 250 mcg STK-MED ONCE .ROUTE ; Start at 10:24; Stop 06/03/16 at 10:25; Status DC Lidocaine/Sodium Bicarbonate (Buffered Lidocaine 1%) 20 ml 1X ONCE IJ Last administered on 06/03/16 10:57; Start 06/03/16 at 10:45; Stop 06/03/16 at 10:46; Status DC Midazolam HCl (Versed) 3 mg 1X ONCE IV Last administered on 06/03/16 10:58; Start 06/03/16 at 10:45; Stop 06/03/16 at 10:46; Status DC Fentanyl Citrate (Fentanyl 5ml Vial) 150 mcg 1X ONCE IV Last administered on 10:58; Start 06/03/16 at 10:45; Stop 06/03/16 at 10:46; Status DC Lactulose 20 gm DAILY PO Last administered on 06/04/16 09:02; Start 06/04/16 at 09:00; Stop 06/04/16 at 12:32; Status DC Albuterol/ Ipratropium (Duoneb) 3 ml RTQID NEB Last administered on 06/11/16 06:43; Start 06/03/16 at 20:00 Alprazolam (Xanax) 0.25 mg PRN Q8HRS PRN PO ANXIETY / AGITATION Last administered on 06/10/16 12:13; Start 06/04/16 at 10:15 Haloperidol Lactate (Haldol) 0.5 mg PRN Q6HRS PRN IVP AGITATION, 2ND CHOICE; Start 06/04/16 at 10:15 Lactulose 20 gm BID PO Last administered on 06/11/16 08:28; Start 06/04/16 at 21:00 Midazolam HCl (Versed) 2 mg STK-MED ONCE .ROUTE ; Start 06/04/16 at 12:35; Stop 06/04/16 at 12:36; Status DC Fentanyl Citrate 100 mcg 100 mcg STK-MED ONCE .ROUTE ; Start 06/04/16 at 12:35; Stop 06/04/16 at 12:36; Status DC Cefazolin Sodium (Ancef 1gm Ivpb For Omni) 50 ml @ As Directed STK-MED ONCE IV ; Start 06/04/16 at 12:35; Stop 06/04/16 at 12:36; Status DC Heparin Sodium (Porcine) 10,000 unit STK-MED ONCE .ROUTE ; Start 06/04/16 at 12: 37; Stop 06/04/16 at 12:38; Status DC Lidocaine/ Epinephrine 20 ml 20 ml STK-MED ONCE .ROUTE ; Start 06/04/16 at 12:37 ; Stop 06/04/16 at 12:38; Status DC Heparin Sodium/ Sodium Chloride 500 ml @ As Directed STK-MED ONCE .ROUTE ; Start 06/04/16 at 12:37; Stop 06/04/16 at 12:38; Status DC Heparin Sodium/ Sodium Chloride 1,000 unit 1X ONCE IART Last administered on 13:09; Start 06/04/16 at 13:15; Stop 06/04/16 at 13:16; Status DC Midazolam HCl (Versed) 2 mg 1X ONCE IV Last administered on 06/04/16 13:12; Start 06/04/16 at 13:15; Stop 06/04/16 at 13:16; Status DC Fentanyl Citrate 100 mcg 100 mcg 1X ONCE IV Last administered on 06/04/16 13: 12; Start 06/04/16 at 13:15; Stop 06/04/16 at 13:16; Status DC Cefazolin Sodium (Ancef 1gm Ivpb For Omni) 50 ml @ 100 mls/hr 1X ONCE IV Last administered on 06/04/16 13:13; Start 06/04/16 at 13:15; Stop 06/04/16 at 13: 44; Status DC Heparin Sodium (Porcine) 2,600 unit 1X ONCE INT CAT Last administered on 13:10; Start 06/04/16 at 13:15; Stop 06/04/16 at 13:16; Status DC Lidocaine/ Epinephrine 20 ml 20 ml 1X ONCE IJ Last administered on 06/04/16t 13 :11; Start 06/04/16 at 13:15; Stop 06/04/16 at 13:16; Status DC Sodium Chloride (Iv Sodium Chloride 0.9% 1000ml Bag) 1,000 ml @ 1,000 mls/hr Q1H PRN IV hypotension; Start 06/04/16 at 18:12; Stop 06/05/16 at 00:11; Status DC Sodium Chloride (Normal Saline Flush) 10 ml 1X PRN PRN IV AP catheter pack; Start 06/04/16 at 18:15; Stop 06/05/16 at 18:14; Status Cancel Sodium Chloride (Normal Saline Flush) 10 ml 1X PRN PRN IV AOC [employer]LLIGENCE [employer]IC[employer] catheter pack; Start 06/04/16 at 18:15; Stop 06/05/16 at 18:14; Status Cancel Info (PHARMACY MONITORING -- do not chart) 1 each PRN DAILY PRN MC SEE COMMENTS ; Start 06/04/16 at 18:15; Status UNV Info (PHARMACY MONITORING -- do not chart) 1 each PRN DAILY PRN MC SEE COMMENTS ; Start 06/04/16 at 18:15; Stop 06/08/16 at 17:45; Status DC Albuterol/ Ipratropium 3 ml 3 ml 1X ONCE NEB Last administered on 06/05/16 00 :29; Start 06/05/16 at 00:15; Stop 06/05/16 at 00:16; Status DC Sodium Chloride 1,000 ml @ 1,000 mls/hr Q1H PRN IV hypotension; Start 06/05/16 at 11:56; Stop 06/05/16 at 17:55; Status DC Albumin Human (Albuminar) 200 ml @ 200 mls/hr 1X PRN PRN IV Hypotension; Start 06/05/16 at 12:00; Stop 06/05/16 at 17:59; Status DC Acetaminophen (Tylenol) 500 mg 1X PRN PRN PO MILD PAIN / TEMP; Start 06/05/16 at 12:00; Stop 06/06/16 at 11:59; Status DC Diphenhydramine HCl (Benadryl) 25 mg 1X PRN PRN IV ITCHING; Start 06/05/16 at 12:00; Stop 06/06/16 at 11:59; Status DC Diphenhydramine HCl (Benadryl) 25 mg 1X PRN PRN IV ITCHING; Start 06/05/16 at 12:00; Stop 06/06/16 at 11:59; Status DC Sodium Chloride (Normal Saline Flush) 10 ml 1X PRN PRN IV AP catheter pack; Start 06/05/16 at 12:00; Stop 06/06/16 at 11:59; Status DC Sodium Chloride (Normal Saline Flush) 10 ml 1X PRN PRN IV AOC [employer] catheter pack; Start 06/05/16 at 12:00; Stop 06/06/16 at 11:59; Status DC Info 1 each 1 each PRN DAILY PRN MC SEE COMMENTS; Start 06/05/16 at 12:00; Status UNV Magnesium Sulfate/ Dextrose (Magnesium Sulfate PREMIX 2GM) 50 ml @ 25 mls/hr 1X ONCE IV Last administered on 06/06/16 07:56; Start 06/06/16 at 06:45; Stop 06/06/16 at 08:44; Status DC Potassium Chloride 40 meq 40 meq 1X ONCE PO Last administered on 06/07/16 09: 31; Start 06/07/16 at 08:45; Stop 06/07/16 at 08:46; Status DC Sodium Chloride 1,000 ml @ 1,000 mls/hr Q1H PRN IV hypotension; Start 06/08/16 at 10:39; Stop 06/08/16 at 16:38; Status DC Sodium Chloride (Iv Sodium Chloride 0.9% 1000ml Bag) 1,000 ml @ 400 mls/hr Q2H30M PRN IV PATENCY; Start 06/08/16 at 10:39; Stop 06/08/16 at 22:38; Status DC Info 1 each 1 each PRN DAILY PRN MC SEE COMMENTS; Start 06/08/16 at 10:45 Sodium Chloride (Iv Sodium Chloride 0.9% 1000ml Bag) 1,000 ml @ 75 mls/hr [id number] IV Last administered on 06/11/16 11:34; Start 06/08/16 at 11:45 Iohexol (Omnipaque 240 Mg/ml) 50 ml 1X ONCE PO Last administered on 06/08/16 15:15; Start 06/08/16 at 15:15; Stop 06/08/16 at 15:16; Status DC Lidocaine/Sodium Bicarbonate (Buffered Lidocaine 1%) 20 ml STK-MED ONCE IJ ; Start 06/09/16 at 09:54; Stop 06/09/16 at 09:55; Status DC Midazolam HCl (Versed) 2 mg STK-MED ONCE .ROUTE ; Start 06/09/16 at 15:03; Stop 06/09/16 at 15:04; Status DC Fentanyl Citrate (Fentanyl 2ml Vial) 100 mcg STK-MED ONCE .ROUTE ; Start at 15:03; Stop 06/09/16 at 15:04; Status DC Lidocaine/Sodium Bicarbonate (Buffered Lidocaine 1%) 20 ml 1X ONCE IJ Last administered on 06/09/16 16:35; Start 06/09/16 at 15:15; Stop 06/09/16 at 15:17 ; Status DC Midazolam HCl (Versed) 2 mg 1X ONCE IV Last administered on 06/09/16 16:35; Start 06/09/16 at 15:15; Stop 06/09/16 at 15:17; Status DC Fentanyl Citrate 100 mcg 100 mcg 1X ONCE IV Last administered on 06/09/16 16: 35; Start 06/09/16 at 15:15; Stop 06/09/16 at 15:17; Status DC Desmopressin Acetate/Sodium Chloride (Ddavp/Iv Sodium Chloride 0.9% 50ml) 55 ml @ 110 mls/hr 1X ONCE IV Last administered on 06/09/16 16:34; Start 06/09/16 at 16:30; Stop 06/09/16 at 16:59; Status DC Iohexol (Omnipaque 350 Mg/ml) 90 ml 1X ONCE IV Last administered on 06/10/16 07:53; Start 06/10/16 at 07:30; Stop 06/10/16 at 07:31; Status DC Info 1 each 1 each PRN DAILY PRN MC SEE COMMENTS; Start 06/10/16 at 07:30; Stop 06/12/16 at 07:29 Sodium Chloride 1,000 ml @ 1,000 mls/hr Q1H PRN IV hypotension; Start 06/10/16 at 08:19; Stop 06/10/16 at 16:00; Status DC Albumin Human (Albuminar) 200 ml @ 200 mls/hr 1X PRN PRN IV Hypotension; Start 06/10/16 at 08:30; Stop 06/10/16 at 16:00; Status DC Acetaminophen (Tylenol) 500 mg 1X PRN PRN PO MILD PAIN / TEMP; Start 06/10/16 at 08:30; Stop 06/10/16 at 16:00; Status DC Diphenhydramine HCl (Benadryl) 25 mg 1X PRN PRN IV ITCHING; Start 06/10/16 at 08:30; Stop 06/10/16 at 16:00; Status DC Diphenhydramine HCl (Benadryl) 25 mg 1X PRN PRN IV ITCHING; Start 06/10/16 at 08:30; Stop 06/10/16 at 16:00; Status DC Sodium Chloride (Normal Saline Flush) 10 ml 1X PRN PRN IV AP catheter pack; Start 06/10/16 at 08:30; Stop 06/10/16 at 16:00; Status DC Sodium Chloride (Normal Saline Flush) 10 ml 1X PRN PRN IV AOC [employer] OFFICER catheter pack; Start 06/10/16 at 08:30; Stop 06/10/16 at 16:00; Status DC Labetalol HCl 10 mg 10 mg PRN Q1HR PRN IVP SBP > 180; Start 06/10/16 at 08:30; Stop 06/10/16 at 16:00; Status DC Sodium Chloride (Iv Sodium Chloride 0.9% 1000ml Bag) 1,000 ml @ 400 mls/hr Q2H30M PRN IV PATENCY; Start 06/10/16 at 08:19; Stop 06/10/16 at 16:00; Status DC Info (PHARMACY MONITORING -- do not chart) 1 each PRN DAILY PRN MC SEE COMMENTS ; Start 06/10/16 at 08:30; Status UNV Darbepoetin Ankit (Aranesp) 60 mcg [id number] SQ Last administered on 06/10/16t 22 :14; Start 06/10/16 at 21:00 Active Scripts Active Pantoprazole Sodium 40 Mg Tablet.dr 40 Mg PO DAILYAC 30 Days Reported Neomycin Sulfate 500 Mg Tablet 1 Tab PO BID Spironolactone 50 Mg Tablet 1 Tab PO DAILY Mag-Oxide (Magnesium Oxide) 400 Mg Tablet 2 Tab PO BID Vitamin D3 (Cholecalciferol (Vitamin D3)) 400 Unit Tablet 400 Unit PO BID Fish Oil Conc 1,000 mg Softgel (Anselmo-3/Dha/Epa/Fish Oil) 1,000 Mg Capsule 3, 000 Mg PO DAILY Multiple Vitamin (Multivitamin With Minerals) 1 Each Tablet 1 Each PO Corzide 40-5 Tablet (Nadolol/Bendroflumethiazide) 1 Each Tablet 0.5 Tab PO DAILY Coenzyme Q10 (Ubidecarenone) 100 Mg Capsule 100 Mg PO DAILY Calcium (Calcium Carbonate) 600 Mg Tablet 600 Mg PO BID Vitals/I & O Vital Sign - Last 24 Hours 06/10/16 06/10/16 06/10/16 06/10/16 12:50 13:05 14:02 14:57 Temp 97.7 97.7 97.9 98.2 97.7 97.7 97.9 98.2 Pulse 109 110 105 103 Resp 18 18 18 18 B/P 106/56 108/58 128/75 138/80 06/10/16 06/10/16 06/10/16 06/10/16 15:00 15:24 19:00 19:33 Temp 98.6 98.1 98.6 98.1 Pulse 97 118 Resp 20 20 B/P 128/72 123/73 Pulse Ox 91 92 92 93 O2 Delivery Room Air Room Air Room Air Room Air 06/10/16 06/10/16 06/10/16 06/10/16 20:00 22:14 23:00 23:14 Temp 97.9 97.9 Pulse 105 Resp 20 B/P 119/77 Pulse Ox 94 92 O2 Delivery Room Air Room Air Room Air Room Air 06/11/16 06/11/16 06/11/16 03:00 06:43 08:00 Temp 97.9 97.9 Pulse 98 Resp 20 B/P 144/69 Pulse Ox 92 91 O2 Delivery Room Air Room Air Room Air O2 Flow Rate 2.0 Intake and Output 06/10/16 06/10/16 06/11/16 15:00 23:00 07:00 Intake Total 500 ml 850 ml Output Total 550 ml 0 ml Balance 500 ml 300 ml 0 ml Problem List Problems Medical Problems: (1) Altered mental status Status: Acute (2) Hyperammonemia Status: Acute Assessment Cirrhosis with encephalopathy, continue with lactulose/xifaxin as o/p, disposition plans per primary DANELLE SALAS MD Jun 11, 2016 11:48
--- NOTE | 2016-06-11 11:56 | PDOC ---
Renal-Progress Notes Subjective Notes Notes NONE History of Present Illness Hx of present illness BETTER Vitals Vitals Vital Signs Date Time Temp Pulse Resp B/P Pulse Ox O2 Delivery O2 Flow Rate FiO2 06/11/16 08:00 Room Air 2.0 06/11/16 06:43 91 06/11/16 03:00 97.9 98 20 144/69 97.9 Weight Weight [ ] I.O. Intake and Output Intake and Output 06/11/16 07:00 Intake Total 1350 ml Output Total 550 ml Balance 800 ml Intake Oral 850 ml Blood Product IV Normal Saline Flush 500 ml Output Urine Total 550 ml # Voids 2 # Bowel Movements 2 Labs Labs Laboratory Tests Test 06/11/16 03:17 White Blood Count 8.4x10^3/uL (4.0-11.0) Red Blood Count 2.70x10^6/uL (3.50-5.40) Hemoglobin 8.4g/dL (12.0-15.5) Hematocrit 25.0% (36.0-47.0) Mean Corpuscular Volume 93fL (79-100) Mean Corpuscular Hemoglobin 31pg (25-35) Mean Corpuscular Hemoglobin Concent 34g/dL (31-37) Red Cell Distribution Width 18.5% (11.5-14.5) Platelet Count 51x10^3/uL (140-400) Sodium Level 140mmol/L (136-145) Potassium Level 3.3mmol/L (3.5-5.1) Chloride Level 104mmol/L (98-107) Carbon Dioxide Level 27mmol/L (21-32) Anion Gap 9 (6-14) Blood Urea Nitrogen 5mg/dL (7-20) Creatinine 1.8mg/dL (0.6-1.0) Estimated GFR (Cockcroft-Gault) 27.7 Glucose Level 92mg/dL (70-99) Calcium Level 8.3mg/dL (8.5-10.1) Serum Folate 5.81ng/ml (3.2-20.0) Micro Micro Microbiology 05/28/16 Blood Culture - Final, Complete NO GROWTH AFTER 5 DAYS Review of Systems Constitutional: yes: alert, weakness Physical Exam General Appearance: no apparent distress, thin, other Respiratory: bilateral CTA Heart: S1S2 Abdomen: soft, bowel sounds present Neurology: alert Assessment Assessment IMP [id number] ATN RATHER THAN ANY NEPHRITIS MET ENCEPHALOPATHY-BETTER CYTOPENIA COLD AGGLUTININS S/P RENAL BX ANEMIA-BETTER AFTER PRBC PLAN RENAL BX RESULTS STILL NOT AVAILABLE HD TOMORROW IVF'S ARANESP HAVE ASKED CM TO SET UP OP HD WILL FOLLOW WILLIAM JORGE MD Jun 11, 2016 11:56
--- NOTE | 2016-06-11 12:13 | PDOC ---
Subjective: Subjective: Onc f/u- Cold agglutinin AIHA, thrombocytopenia No change. Fatigued but stable. Bruising on abdomen larger but appears to be healing. No new bruising. Mentation clear this AM. Objective: Vital Signs: Vital Signs Date Time Temp Pulse Resp B/P Pulse Ox O2 Delivery O2 Flow Rate FiO2 06/11/16 08:00 Room Air 2.0 06/11/16 06:43 91 06/11/16 03:00 97.9 98 20 144/69 97.9 Physical Exam: Extremities: No edema General: Alert, Oriented X3, Cooperative, No acute distress Lungs: Other (no resp distress) Psych/Mental Status: Mental status NL, Mood NL Skin: Other (bruising across all of left flank, over HD catheter. No new bruising. Area becoming baby attendant.) Labs/Imaging: Hgb stable after transfusion 6.9 --> 8.4, plt unchanged at 54 Bmbx path and renal bx path pending Assessment/Plan A/P: 71 yo F with: 1. Cold agglutinin AIHA of unclear etiology. No evidence of lymphoma, infection. Consider autoimmune cause. Overall stable, does not appear to be an aggressive hemolysis. 2. Thrombocytopenia, likely more cirrhotic in nature vs autoimmune. Unlikely to change. 3. Acute vs chronic kidney disease- renal following. S/P renal bx 06/09. 4. Ho alcoholic cirrhosis, abuse up to admission per daughter; pt denies. 5. Bruising- Improving, becoming baby attendant, no new areas. Plan: - F/u pending final path from bmbx 06/03 (multiple pathologists reviewing) and renal bx 06/09 - Daily CBC, retic count, LDH (ordered). As long as hgb remains stable, retic/ LDH not rising due to significant hemolysis would hold off on Rituxan and continue with supportive care. Hemolysis does not appear brisk. - Daily folic acid added; lab at low normal. NAVEED SEPULVEDA DO Jun 11, 2016 12:12
[2016-06-11] MEDS: FOLIC ACID 1 MG TABLET PO SCH (12:14)
--- NOTE | 2016-06-11 13:06 | PDOC ---
PROGRESS NOTES Chief Complaint Chief Complaint CC- Altered mental status, hyperammonemia 1. Encephalopathy, possible metabolic, hepatic. 2. Acute kidney injury, ATN,myeloma? 3. Metabolic acidosis. 4. Thrombocytopenia 2/2 cirrhosis likely 5. Anemia, chronic. 6. Hyperbilirubinemia. 7. Alcoholism. 8. high INR 2/2 CIrrhosis likely 9, LEFT thigh pain, 2/2 OA? 10. hypomagnesemia History of Present Illness History of Present Illness Patient was awake, alert and in the bed, her Hgb is stable at 8.4 today. Called pathologist and discuss her path report of bone marrow biopsy which shows no multiple myeloma and her renal biopsy report is still pending. Discussed with Case management about her discharge disposition. At the time of evaluation pt. was in no acute distress and had no new complains. Vitals Vitals Vital Signs Date Time Temp Pulse Resp B/P Pulse Ox O2 Delivery O2 Flow Rate FiO2 06/11/16 12:29 Room Air 06/11/16 11:00 97.9 86 16 143/76 94 97.9 06/11/16 08:00 2.0 Physical Exam Physical Exam aaox2 to person and place only General: Alert, Oriented X3, Cooperative, No acute distress Heart: Regular rate Lungs: Clear Abdomen: Soft, No tenderness, Other (no ascites) Extremities: No edema Skin: Other Labs LABS Laboratory Tests Test 06/11/16 03:17 White Blood Count 8.4x10^3/uL (4.0-11.0) Red Blood Count 2.70x10^6/uL (3.50-5.40) Hemoglobin 8.4g/dL (12.0-15.5) Hematocrit 25.0% (36.0-47.0) Mean Corpuscular Volume 93fL (79-100) Mean Corpuscular Hemoglobin 31pg (25-35) Mean Corpuscular Hemoglobin Concent 34g/dL (31-37) Red Cell Distribution Width 18.5% (11.5-14.5) Platelet Count 51x10^3/uL (140-400) Sodium Level 140mmol/L (136-145) Potassium Level 3.3mmol/L (3.5-5.1) Chloride Level 104mmol/L (98-107) Carbon Dioxide Level 27mmol/L (21-32) Anion Gap 9 (6-14) Blood Urea Nitrogen 5mg/dL (7-20) Creatinine 1.8mg/dL (0.6-1.0) Estimated GFR (Cockcroft-Gault) 27.7 Glucose Level 92mg/dL (70-99) Calcium Level 8.3mg/dL (8.5-10.1) Serum Folate 5.81ng/ml (3.2-20.0) Review of Systems Review of Systems Denies fever, chills Denies SOB, CP Awake, alert, oriented Assessment and Plan Assessmemt and Plan Assessment: 1. Encephalopathy, possible metabolic, hepatic. 2. Acute kidney injury, ATN,myeloma? 3. Metabolic acidosis. 4. Thrombocytopenia 2/2 cirrhosis likely 5. Anemia, chronic. 6. Hyperbilirubinemia. 7. Alcoholism. 8. high INR 2/2 CIrrhosis likely 9, LEFT thigh pain, 2/2 OA? 10. hypomagnesemia Plan: - Agree with Renal and Heme onc plan of care - D/w case management for discharge disposition - Called pathology to discuss her renal and bone marrow biopsy reports - Bone marrow biopsy is negative for multiple myleoma - Renal biopsy report pending - Continue lactulose to keep BM 2-3 times per day. - Recheck labs in AM - PT/OT - Appreciate subspecialities inputs and recommendation Problems Medical Problems: (1) Altered mental status Status: Acute (2) Hyperammonemia Status: Acute Problems: Comment Review of Relevant I have reviewed the following items amy (where applicable) has been applied. Labs Laboratory Tests Test 06/10/16 03:27 06/11/16 03:17 White Blood Count 9.0x10^3/uL (4.0-11.0) 8.4x10^3/uL (4.0-11.0) Red Blood Count 2.15x10^6/uL (3.50-5.40) 2.70x10^6/uL (3.50-5.40) Hemoglobin 6.9g/dL (12.0-15.5) 8.4g/dL (12.0-15.5) Hematocrit 20.3% (36.0-47.0) 25.0% (36.0-47.0) Mean Corpuscular Volume 95fL (79-100) 93fL (79-100) Mean Corpuscular Hemoglobin 32pg (25-35) 31pg (25-35) Mean Corpuscular Hemoglobin Concent 34g/dL (31-37) 34g/dL (31-37) Red Cell Distribution Width 19.4% (11.5-14.5) 18.5% (11.5-14.5) Platelet Count 45x10^3/uL (140-400) 51x10^3/uL (140-400) Neutrophils (%) (Auto) 62% (31-73) Lymphocytes (%) (Auto) 15% (24-48) Monocytes (%) (Auto) 19% (0-9) Eosinophils (%) (Auto) 3% (0-3) Basophils (%) (Auto) 1% (0-3) Neutrophils # (Auto) 5.6x10^3uL (1.8-7.7) Lymphocytes # (Auto) 1.3x10^3/uL (1.0-4.8) Monocytes # (Auto) 1.7x10^3/uL (0.0-1.1) Eosinophils # (Auto) 0.3x10^3/uL (0.0-0.7) Basophils # (Auto) 0.1x10^3/uL (0.0-0.2) Segmented Neutrophils % 65% (35-66) Lymphocytes % 14% (24-48) Monocytes % 17% (0-10) Eosinophils % 4% (0-5) Platelet Estimate Decreased (ADEQUATE) Anisocytosis Slight Rouleau Present Sodium Level 138mmol/L (136-145) 140mmol/L (136-145) Potassium Level 3.5mmol/L (3.5-5.1) 3.3mmol/L (3.5-5.1) Chloride Level 102mmol/L (98-107) 104mmol/L (98-107) Carbon Dioxide Level 26mmol/L (21-32) 27mmol/L (21-32) Anion Gap 10 (6-14) 9 (6-14) Blood Urea Nitrogen 10mg/dL (7-20) 5mg/dL (7-20) Creatinine 2.6mg/dL (0.6-1.0) 1.8mg/dL (0.6-1.0) Estimated GFR (Cockcroft-Gault) 18.1 27.7 Glucose Level 132mg/dL (70-99) 92mg/dL (70-99) Calcium Level 8.6mg/dL (8.5-10.1) 8.3mg/dL (8.5-10.1) Ammonia 55mcmol/L (11-34) Serum Folate 5.81ng/ml (3.2-20.0) Laboratory Tests Test 06/11/16 03:17 White Blood Count 8.4x10^3/uL (4.0-11.0) Red Blood Count 2.70x10^6/uL (3.50-5.40) Hemoglobin 8.4g/dL (12.0-15.5) Hematocrit 25.0% (36.0-47.0) Mean Corpuscular Volume 93fL (79-100) Mean Corpuscular Hemoglobin 31pg (25-35) Mean Corpuscular Hemoglobin Concent 34g/dL (31-37) Red Cell Distribution Width 18.5% (11.5-14.5) Platelet Count 51x10^3/uL (140-400) Sodium Level 140mmol/L (136-145) Potassium Level 3.3mmol/L (3.5-5.1) Chloride Level 104mmol/L (98-107) Carbon Dioxide Level 27mmol/L (21-32) Anion Gap 9 (6-14) Blood Urea Nitrogen 5mg/dL (7-20) Creatinine 1.8mg/dL (0.6-1.0) Estimated GFR (Cockcroft-Gault) 27.7 Glucose Level 92mg/dL (70-99) Calcium Level 8.3mg/dL (8.5-10.1) Serum Folate 5.81ng/ml (3.2-20.0) Microbiology 05/28/16 Blood Culture - Final, Complete NO GROWTH AFTER 5 DAYS Medications Current Medications Sodium Chloride (Iv Sodium Chloride 0.9% 1000ml Bag) 1,000 ml @ 1,000 mls/hr 1X ONCE IV Last administered on 05/28/16t 16:07; Start 05/28/16 at 15:45; Stop 05/28/16 at 16:44; Status DC Ondansetron HCl 4 mg 4 mg PRN Q8HRS PRN IV NAUSEA/VOMITING; Start 05/28/16 at 17 :15; Stop 05/29/16 at 09:22; Status DC Sodium Chloride (Iv Sodium Chloride 0.9% 1000ml Bag) 1,000 ml @ 125 mls/hr Q8H IV ; Start 05/28/16 at 17:07; Stop 05/28/16 at 18:38; Status DC Lactulose 20 gm 20 gm PRN BID PRN PO CONSTIPATION; Start 05/28/16 at 18:45; Stop 05/29/16 at 10:00; Status DC Sodium Chloride (Iv Sodium Chloride 0.9% 1000ml Bag) 1,000 ml @ 100 mls/hr Q10H IV Last administered on 06/01/16 01:26; Start 05/28/16 at 19:00; Stop at 15:33; Status DC Acetaminophen (Tylenol) 325 mg PRN Q6HRS PRN PO MILD PAIN / TEMP Last administered on 06/05/16 17:40; Start 05/28/16 at 19:00 Acetaminophen/ Hydrocodone Bitart (Lortab 5/325) 1 tab PRN Q6HRS PRN PO MODERATE TO SEVERE PAIN Last administered on 06/10/16 22:14; Start 05/28/16 at 19:00 Hydralazine HCl (Apresoline) 10 mg PRN Q4HRS PRN IVP ELEVATED BP, SEE COMMENTS ; Start 05/28/16 at 19:00 Ondansetron HCl (Zofran) 4 mg PRN Q8HRS PRN IV NAUSEA/VOMITING Last administered on 05/30/16 03:36; Start 05/28/16 at 19:00 Albuterol Sulfate (Ventolin Neb Soln) 2.5 mg PRN Q4HRS PRN NEB SHORTNESS OF BREATH; Start 05/28/16 at 19:00 Lactulose 20 gm BID PO Last administered on 05/30/16 08:29; Start 05/29/16 at 10 :00; Stop 05/30/16 at 14:43; Status DC Pantoprazole Sodium (Protonix) 40 mg DAILYAC PO Last administered on 06/11/16 08:28; Start 05/29/16 at 10:00 Lactulose 20 gm TID PO ; Start 05/31/16 at 09:00; Stop 05/31/16 at 09:00; Status DC Lactulose 20 gm TID PO Last administered on 05/31/16 08:33; Start 05/30/16 at 14 :45; Stop 05/31/16 at 09:45; Status DC Rifaximin (Xifaxan) 550 mg Q12HR PO Last administered on 06/11/16 08:28; Start 05/30/16 at 15:00 Lactulose 20 gm 20 gm [id number] PO Last administered on 05/31/16 14:59; Start at 14:00; Stop 06/02/16 at 10:11; Status DC Magnesium Sulfate/ Dextrose 50 ml @ 25 mls/hr PRN DAILY PRN IV for Mag < 1.7 on am labs; Start 06/01/16 at 15:30 Sodium Bicarbonate/ Sodium Chloride (Iv Sodium Chloride 0.45%) 1,075 ml @ 100 mls/hr [id number] IV Last administered on 06/02/16 11:51; Start 06/01/16 at 15:45; Stop 06/02/16 at 18:18; Status DC Potassium Chloride (Klor-Con) 40 meq 1X ONCE PO Last administered on 06/02/16 08:39; Start 06/02/16 at 09:00; Stop 06/02/16 at 09:01; Status DC Lactulose 20 gm PRN BID PRN PO CONSTIPATION; Start 06/03/16 at 09:00; Stop at 12:00; Status DC Lactulose 20 gm BID PO Last administered on 06/02/16 11:49; Start 06/02/16 at 12 :00; Stop 06/03/16 at 10:38; Status DC Methylprednisolone Acetate (Depo-Medrol 40mg Vial) 40 mg 1X ONCE IM Last administered on 06/02/16 16:46; Start 06/02/16 at 16:30; Stop 06/02/16 at 16:31; Status DC Bupivacaine HCl (Sensorcaine-Mpf 0.25%) 10 ml 1X ONCE IJ Last administered on 06/02/16 16:46; Start 06/02/16 at 16:30; Stop 06/02/16 at 16:31; Status DC Methylprednisolone Acetate 40 mg 40 mg 1X ONCE IM Last administered on 16:45; Start 06/02/16 at 16:45; Stop 06/02/16 at 16:46; Status DC Sodium Bicarbonate/ Potassium Chloride/Sodium Chloride (Iv Sodium Chloride 0.45% ) 1,095 ml @ 100 mls/hr [id number] IV Last administered on 06/02/16 21:05; Start 06/02/16 at 18:30; Stop 06/03/16 at 05:26; Status DC Potassium Chloride 40 meq 40 meq 1X PRN PRN PO if repeat K < 3.7; Start at 18:15; Stop 06/03/16 at 05:00; Status DC Sodium Bicarbonate 75 meq/Sodium Chloride 1,075 ml @ 100 mls/hr [id number] IV Last administered on 06/04/16 03:30; Start 06/03/16 at 06:00; Stop 06/04/16 at 11: 39; Status DC Magnesium Sulfate/ Dextrose (Magnesium Sulfate PREMIX 4GM) 100 ml @ 25 mls/hr 1X ONCE IV Last administered on 06/03/16 10:10; Start 06/03/16 at 09:00; Stop 06/03/16 at 12:59; Status DC Magnesium Oxide (Magnesium Oxide) 400 mg DAILY PO Last administered on 08:29; Start 06/03/16 at 09:00 Lidocaine/Sodium Bicarbonate (Buffered Lidocaine 1%) 20 ml STK-MED ONCE IJ ; Start 06/03/16 at 10:23; Stop 06/03/16 at 10:24; Status DC Midazolam HCl (Versed) 5 mg STK-MED ONCE .ROUTE ; Start 06/03/16 at 10:24; Stop 06/03/16 at 10:25; Status DC Fentanyl Citrate (Fentanyl 5ml Vial) 250 mcg STK-MED ONCE .ROUTE ; Start at 10:24; Stop 06/03/16 at 10:25; Status DC Lidocaine/Sodium Bicarbonate (Buffered Lidocaine 1%) 20 ml 1X ONCE IJ Last administered on 06/03/16 10:57; Start 06/03/16 at 10:45; Stop 06/03/16 at 10:46; Status DC Midazolam HCl (Versed) 3 mg 1X ONCE IV Last administered on 06/03/16 10:58; Start 06/03/16 at 10:45; Stop 06/03/16 at 10:46; Status DC Fentanyl Citrate (Fentanyl 5ml Vial) 150 mcg 1X ONCE IV Last administered on 10:58; Start 06/03/16 at 10:45; Stop 06/03/16 at 10:46; Status DC Lactulose 20 gm DAILY PO Last administered on 06/04/16 09:02; Start 06/04/16 at 09:00; Stop 06/04/16 at 12:32; Status DC Albuterol/ Ipratropium (Duoneb) 3 ml RTQID NEB Last administered on 06/11/16 12:29; Start 06/03/16 at 20:00 Alprazolam (Xanax) 0.25 mg PRN Q8HRS PRN PO ANXIETY / AGITATION Last administered on 06/10/16 12:13; Start 06/04/16 at 10:15 Haloperidol Lactate (Haldol) 0.5 mg PRN Q6HRS PRN IVP AGITATION, 2ND CHOICE; Start 06/04/16 at 10:15 Lactulose 20 gm BID PO Last administered on 06/11/16 08:28; Start 06/04/16 at 21:00 Midazolam HCl (Versed) 2 mg STK-MED ONCE .ROUTE ; Start 06/04/16 at 12:35; Stop 06/04/16 at 12:36; Status DC Fentanyl Citrate 100 mcg 100 mcg STK-MED ONCE .ROUTE ; Start 06/04/16 at 12:35; Stop 06/04/16 at 12:36; Status DC Cefazolin Sodium (Ancef 1gm Ivpb For Omni) 50 ml @ As Directed STK-MED ONCE IV ; Start 06/04/16 at 12:35; Stop 06/04/16 at 12:36; Status DC Heparin Sodium (Porcine) 10,000 unit STK-MED ONCE .ROUTE ; Start 06/04/16 at 12: 37; Stop 06/04/16 at 12:38; Status DC Lidocaine/ Epinephrine 20 ml 20 ml STK-MED ONCE .ROUTE ; Start 06/04/16 at 12:37 ; Stop 06/04/16 at 12:38; Status DC Heparin Sodium/ Sodium Chloride 500 ml @ As Directed STK-MED ONCE .ROUTE ; Start 06/04/16 at 12:37; Stop 06/04/16 at 12:38; Status DC Heparin Sodium/ Sodium Chloride 1,000 unit 1X ONCE IART Last administered on 13:09; Start 06/04/16 at 13:15; Stop 06/04/16 at 13:16; Status DC Midazolam HCl (Versed) 2 mg 1X ONCE IV Last administered on 06/04/16 13:12; Start 06/04/16 at 13:15; Stop 06/04/16 at 13:16; Status DC Fentanyl Citrate 100 mcg 100 mcg 1X ONCE IV Last administered on 06/04/16 13: 12; Start 06/04/16 at 13:15; Stop 06/04/16 at 13:16; Status DC Cefazolin Sodium (Ancef 1gm Ivpb For Omni) 50 ml @ 100 mls/hr 1X ONCE IV Last administered on 06/04/16 13:13; Start 06/04/16 at 13:15; Stop 06/04/16 at 13: 44; Status DC Heparin Sodium (Porcine) 2,600 unit 1X ONCE INT CAT Last administered on 13:10; Start 06/04/16 at 13:15; Stop 06/04/16 at 13:16; Status DC Lidocaine/ Epinephrine 20 ml 20 ml 1X ONCE IJ Last administered on 06/04/16 13 :11; Start 06/04/16 at 13:15; Stop 06/04/16 at 13:16; Status DC Sodium Chloride (Iv Sodium Chloride 0.9% 1000ml Bag) 1,000 ml @ 1,000 mls/hr Q1H PRN IV hypotension; Start 06/04/16 at 18:12; Stop 06/05/16 at 00:11; Status DC Sodium Chloride (Normal Saline Flush) 10 ml 1X PRN PRN IV AP catheter pack; Start 06/04/16 at 18:15; Stop 06/05/16 at 18:14; Status Cancel Sodium Chloride (Normal Saline Flush) 10 ml 1X PRN PRN IV A AND P MECHANIC catheter pack; Start 06/04/16 at 18:15; Stop 06/05/16 at 18:14; Status Cancel Info (PHARMACY MONITORING -- do not chart) 1 each PRN DAILY PRN MC SEE COMMENTS ; Start 06/04/16 at 18:15; Status UNV Info (PHARMACY MONITORING -- do not chart) 1 each PRN DAILY PRN MC SEE COMMENTS ; Start 06/04/16 at 18:15; Stop 06/08/16 at 17:45; Status DC Albuterol/ Ipratropium 3 ml 3 ml 1X ONCE NEB Last administered on 06/05/16 00 :29; Start 06/05/16 at 00:15; Stop 06/05/16 at 00:16; Status DC Sodium Chloride 1,000 ml @ 1,000 mls/hr Q1H PRN IV hypotension; Start 06/05/16 at 11:56; Stop 06/05/16 at 17:55; Status DC Albumin Human (Albuminar) 200 ml @ 200 mls/hr 1X PRN PRN IV Hypotension; Start 06/05/16 at 12:00; Stop 06/05/16 at 17:59; Status DC Acetaminophen (Tylenol) 500 mg 1X PRN PRN PO MILD PAIN / TEMP; Start 06/05/16 at 12:00; Stop 06/06/16 at 11:59; Status DC Diphenhydramine HCl (Benadryl) 25 mg 1X PRN PRN IV ITCHING; Start 06/05/16 at 12:00; Stop 06/06/16 at 11:59; Status DC Diphenhydramine HCl (Benadryl) 25 mg 1X PRN PRN IV ITCHING; Start 06/05/16 at 12:00; Stop 06/06/16 at 11:59; Status DC Sodium Chloride (Normal Saline Flush) 10 ml 1X PRN PRN IV AP catheter pack; Start 06/05/16 at 12:00; Stop 06/06/16 at 11:59; Status DC Sodium Chloride (Normal Saline Flush) 10 ml 1X PRN PRN IV A AND P MECHANIC catheter pack; Start 06/05/16 at 12:00; Stop 06/06/16 at 11:59; Status DC Info 1 each 1 each PRN DAILY PRN MC SEE COMMENTS; Start 06/05/16 at 12:00; Status UNV Magnesium Sulfate/ Dextrose (Magnesium Sulfate PREMIX 2GM) 50 ml @ 25 mls/hr 1X ONCE IV Last administered on 06/06/16t 07:56; Start 06/06/16 at 06:45; Stop 06/06/16 at 08:44; Status DC Potassium Chloride 40 meq 40 meq 1X ONCE PO Last administered on 06/07/16 09: 31; Start 06/07/16 at 08:45; Stop 06/07/16 at 08:46; Status DC Sodium Chloride 1,000 ml @ 1,000 mls/hr Q1H PRN IV hypotension; Start 06/08/16 at 10:39; Stop 06/08/16 at 16:38; Status DC Sodium Chloride (Iv Sodium Chloride 0.9% 1000ml Bag) 1,000 ml @ 400 mls/hr Q2H30M PRN IV PATENCY; Start 06/08/16 at 10:39; Stop 06/08/16 at 22:38; Status DC Info 1 each 1 each PRN DAILY PRN MC SEE COMMENTS; Start 06/08/16 at 10:45 Sodium Chloride (Iv Sodium Chloride 0.9% 1000ml Bag) 1,000 ml @ 75 mls/hr [id number] IV Last administered on 06/11/16 11:34; Start 06/08/16 at 11:45 Iohexol (Omnipaque 240 Mg/ml) 50 ml 1X ONCE PO Last administered on 06/08/16 15:15; Start 06/08/16 at 15:15; Stop 06/08/16 at 15:16; Status DC Lidocaine/Sodium Bicarbonate (Buffered Lidocaine 1%) 20 ml STK-MED ONCE IJ ; Start 06/09/16 at 09:54; Stop 06/09/16 at 09:55; Status DC Midazolam HCl (Versed) 2 mg STK-MED ONCE .ROUTE ; Start 06/09/16 at 15:03; Stop 06/09/16 at 15:04; Status DC Fentanyl Citrate (Fentanyl 2ml Vial) 100 mcg STK-MED ONCE .ROUTE ; Start at 15:03; Stop 06/09/16 at 15:04; Status DC Lidocaine/Sodium Bicarbonate (Buffered Lidocaine 1%) 20 ml 1X ONCE IJ Last administered on 06/09/16 16:35; Start 06/09/16 at 15:15; Stop 06/09/16 at 15:17 ; Status DC Midazolam HCl (Versed) 2 mg 1X ONCE IV Last administered on 06/09/16 16:35; Start 06/09/16 at 15:15; Stop 06/09/16 at 15:17; Status DC Fentanyl Citrate 100 mcg 100 mcg 1X ONCE IV Last administered on 06/09/16 16: 35; Start 06/09/16 at 15:15; Stop 06/09/16 at 15:17; Status DC Desmopressin Acetate/Sodium Chloride (Ddavp/Iv Sodium Chloride 0.9% 50ml) 55 ml @ 110 mls/hr 1X ONCE IV Last administered on 06/09/16 16:34; Start 06/09/16 at 16:30; Stop 06/09/16 at 16:59; Status DC Iohexol (Omnipaque 350 Mg/ml) 90 ml 1X ONCE IV Last administered on 06/10/16 07:53; Start 06/10/16 at 07:30; Stop 06/10/16 at 07:31; Status DC Info 1 each 1 each PRN DAILY PRN MC SEE COMMENTS; Start 06/10/16 at 07:30; Stop 06/12/16 at 07:29 Sodium Chloride 1,000 ml @ 1,000 mls/hr Q1H PRN IV hypotension; Start 06/10/16 at 08:19; Stop 06/10/16 at 16:00; Status DC Albumin Human (Albuminar) 200 ml @ 200 mls/hr 1X PRN PRN IV Hypotension; Start 06/10/16 at 08:30; Stop 06/10/16 at 16:00; Status DC Acetaminophen (Tylenol) 500 mg 1X PRN PRN PO MILD PAIN / TEMP; Start 06/10/16 at 08:30; Stop 06/10/16 at 16:00; Status DC Diphenhydramine HCl (Benadryl) 25 mg 1X PRN PRN IV ITCHING; Start 06/10/16 at 08:30; Stop 06/10/16 at 16:00; Status DC Diphenhydramine HCl (Benadryl) 25 mg 1X PRN PRN IV ITCHING; Start 06/10/16 at 08:30; Stop 06/10/16 at 16:00; Status DC Sodium Chloride (Normal Saline Flush) 10 ml 1X PRN PRN IV AP catheter pack; Start 06/10/16 at 08:30; Stop 06/10/16 at 16:00; Status DC Sodium Chloride (Normal Saline Flush) 10 ml 1X PRN PRN IV A AND P MECHANIC catheter pack; Start 06/10/16 at 08:30; Stop 06/10/16 at 16:00; Status DC Labetalol HCl 10 mg 10 mg PRN Q1HR PRN IVP SBP > 180; Start 06/10/16 at 08:30; Stop 06/10/16 at 16:00; Status DC Sodium Chloride (Iv Sodium Chloride 0.9% 1000ml Bag) 1,000 ml @ 400 mls/hr Q2H30M PRN IV PATENCY; Start 06/10/16 at 08:19; Stop 06/10/16 at 16:00; Status DC Info (PHARMACY MONITORING -- do not chart) 1 each PRN DAILY PRN MC SEE COMMENTS ; Start 06/10/16 at 08:30; Status UNV Darbepoetin Ankit (Aranesp) 60 mcg [id number] SQ Last administered on 06/10/16t 22 :14; Start 06/10/16 at 21:00 Folic Acid (Folic Acid) 1 mg DAILY PO Last administered on 06/11/16t 12:14; Start 06/11/16 at 12:00 Active Scripts Active Pantoprazole Sodium 40 Mg Tablet.dr 40 Mg PO DAILYAC 30 Days Reported Neomycin Sulfate 500 Mg Tablet 1 Tab PO BID Spironolactone 50 Mg Tablet 1 Tab PO DAILY Mag-Oxide (Magnesium Oxide) 400 Mg Tablet 2 Tab PO BID Vitamin D3 (Cholecalciferol (Vitamin D3)) 400 Unit Tablet 400 Unit PO BID Fish Oil Conc 1,000 mg Softgel ([place]-3/Dha/Epa/Fish Oil) 1,000 Mg Capsule 3, 000 Mg PO DAILY Multiple Vitamin (Multivitamin With Minerals) 1 Each Tablet 1 Each PO Corzide 40-5 Tablet (Nadolol/Bendroflumethiazide) 1 Each Tablet 0.5 Tab PO DAILY Coenzyme Q10 (Ubidecarenone) 100 Mg Capsule 100 Mg PO DAILY Calcium (Calcium Carbonate) 600 Mg Tablet 600 Mg PO BID Vitals/I & O Vital Sign - Last 24 Hours 06/10/16 06/10/16 06/10/16 06/10/16 13:05 14:02 14:57 15:00 Temp 97.7 97.9 98.2 98.6 97.7 97.9 98.2 98.6 Pulse 110 105 103 97 Resp 18 18 18 20 B/P 108/58 128/75 138/80 128/72 Pulse Ox 91 O2 Delivery Room Air 06/10/16 06/10/16 06/10/16 06/10/16 15:24 19:00 19:33 20:00 Temp 98.1 98.1 Pulse 118 Resp 20 B/P 123/73 Pulse Ox 92 92 93 O2 Delivery Room Air Room Air Room Air Room Air 06/10/16 06/10/16 06/10/16 06/11/16 22:14 23:00 23:14 03:00 Temp 97.9 97.9 97.9 97.9 Pulse 105 98 Resp 20 20 B/P 119/77 144/69 Pulse Ox 94 92 92 O2 Delivery Room Air Room Air Room Air Room Air 06/11/16 06/11/16 06/11/16 06/11/16 06:43 07:00 08:00 11:00 Temp 97.9 97.9 97.9 97.9 Pulse 105 86 Resp 16 16 B/P 120/65 143/76 Pulse Ox 91 91 94 O2 Delivery Room Air Room Air Room Air Room Air O2 Flow Rate 2.0 06/11/16 12:29 O2 Delivery Room Air Intake and Output 06/10/16 06/10/16 06/11/16 15:00 23:00 07:00 Intake Total 500 ml 850 ml Output Total 550 ml 0 ml Balance 500 ml 300 ml 0 ml MARCEL ENGLISH III, DO Jun 11, 2016 13:06
[2016-06-11] MEDS: HYDROCODONE/APAP 5/325MG TABLET. PO PRN (22:06)
[2016-06-12] MEDS: IV NORMAL SALINE 1000ML BAG 1,000 ML IV SCH ×2 (01:05→09:05)
[2016-06-12 03:00] VITALS: BP 142/78
[2016-06-12 05:16] LABS: CALCIUM 8.6 mg/dL (8.5-10.1); CREATININE 2.4 mg/dL (0.6-1.0); GFR 19.8; POTASSIUM 3.5 mmol/L (3.5-5.1)
[2016-06-12 06:57] LABS: BASO # 0.1 x10^3/uL (0.0-0.2); BASO % 1 % (0-3); EOS % 4 % (0-3); HEMATOCRIT 25.5 % (36.0-47.0); HEMOGLOBIN 8.8 g/dL (12.0-15.5); LYMPH # 1.2 x10^3/uL (1.0-4.8); LYMPH % 14 % (24-48); MEAN CORPUSCULAR HEMOGLOBIN 32 pg (25-35); MEAN CORPUSCULAR HGB CONC 34 g/dL (31-37); MEAN CORPUSCULAR VOLUME 94 fL (79-100); MONO % 18 % (0-9); NEUT % 63 % (31-73); PLATELET COUNT 50 x10^3/uL (140-400); RED BLOOD COUNT 2.72 x10^6/uL (3.50-5.40); RED CELL DISTRIBUTION WIDTH 19.8 % (11.5-14.5); WHITE BLOOD COUNT 8.8 x10^3/uL (4.0-11.0)
[2016-06-12 07:00] VITALS: BP 146/84
[2016-06-12] MEDS: PANTOPRAZOLE 40 MG TABLET. PO SCH (07:38)
[2016-06-12] MEDS: IPRATRPIUM/ALBUTEROL 0.5/2.5MG 3 ML NEBU. NEB SCH ×2 (08:00→12:50)
[2016-06-12] MEDS: MAGNESIUM OXIDE 400 MG TABLET PO SCH (08:27)
[2016-06-12] MEDS: RIFAXIMIN 550 MG TABLET PO SCH (08:27)
[2016-06-12] MEDS: FOLIC ACID 1 MG TABLET PO SCH (08:29)
[2016-06-12] MEDS ORDERED: IV NORMAL SALINE 1000ML BAG 1,000 ML IV PRN ×2 (09:36)
[2016-06-12] MEDS ORDERED: DIALYSIS PATIENT. MC PRN (09:45)
--- NOTE | 2016-06-12 10:00 | PDOC ---
Subjective: Subjective: Onc f/u- Cold agglutinin AIHA, thrombocytopenia No changes. Working on setting up outpt f/u. Bruising stable, no new spots, continues to lessen. No worsening fatigue, SOB. 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 No evidence of lymphoma, infection. Consider autoimmune cause. Overall stable, does not appear to be an aggressive hemolysis and her body is compensating, therefore holding on tx ( Rituxan). Continue folic acid. 2. Thrombocytopenia, likely more cirrhotic in nature. Stable. 3. Acute vs chronic kidney disease- renal following. S/P renal bx 06/09, pending. Working on setting up outpt HD. 4. Ho alcoholic cirrhosis, abuse up to admission per daughter; pt denies. Occasionally encephalopathy, controlled when takes meds. 5. Left flank bruising- Healing, no new areas. Denies falls. Plan: - F/u pending final path from [facility]x 06/03 (multiple pathologists reviewing, no evidence of myeloma seen) and renal bx 06/09 - Daily CBC, retic count, LDH (ordered). As long as hgb remains stable, retic/ LDH not rising due to significant hemolysis would hold off on Rituxan and continue with supportive care. Hemolysis does not appear brisk. - Daily folic acid. Dr. Holcomb is covering this weekend if any acute issues occur; Dr. Colunga will take over on Wednesday. NAVEED SEPULVEDA DO Jun 12, 2016 09:59
--- NOTE | 2016-06-12 10:18 | PDOC ---
PROGRESS NOTES Subjective Subjective No new complaints. Objective Objective Vital Signs Date Time Temp Pulse Resp B/P Pulse Ox O2 Delivery O2 Flow Rate FiO2 06/12/16 07:00 97.9 99 18 146/84 91 Room Air 97.9 06/11/16 23:10 2.0 Intake and Output 06/12/16 07:00 Intake Total 1730 ml Output Total 575 ml Balance 1155 ml Intake Oral 730 ml IV Total 1000 ml Output Urine Total 525 ml Urine/Stool Mix 50 ml # Bowel Movements 6 Physical Exam Physical Exam She is comfortable on dialysis bed and she remains independent with her mobility at roller walker level but her cognitive status is a concern for her going home to live by herself. Assessment Assessment Problems Medical Problems: (1) Altered mental status Status: Acute (2) Hyperammonemia Status: Acute Plan Plan of Care Agree with plans for home with home health if she does not have any family to take her home and she does not qualify for SNF. Comment Review of Relevant I have reviewed the following items amy (where applicable) has been applied. Labs Laboratory Tests Test 06/11/16 03:17 06/11/16 13:06 06/12/16 03:41 White Blood Count 8.4x10^3/uL (4.0-11.0) 8.8x10^3/uL (4.0-11.0) Red Blood Count 2.70x10^6/uL (3.50-5.40) 2.72x10^6/uL (3.50-5.40) Hemoglobin 8.4g/dL (12.0-15.5) 8.8g/dL (12.0-15.5) Hematocrit 25.0% (36.0-47.0) 25.5% (36.0-47.0) Mean Corpuscular Volume 93fL (79-100) 94fL (79-100) Mean Corpuscular Hemoglobin 31pg (25-35) 32pg (25-35) Mean Corpuscular Hemoglobin Concent 34g/dL (31-37) 34g/dL (31-37) Red Cell Distribution Width 18.5% (11.5-14.5) 19.8% (11.5-14.5) Platelet Count 51x10^3/uL (140-400) 50x10^3/uL (140-400) Reticulocyte Count (auto) 0.9% (0.5-2.5) Sodium Level 140mmol/L (136-145) 139mmol/L (136-145) Potassium Level 3.3mmol/L (3.5-5.1) 3.5mmol/L (3.5-5.1) Chloride Level 104mmol/L (98-107) 104mmol/L (98-107) Carbon Dioxide Level 27mmol/L (21-32) 23mmol/L (21-32) Anion Gap 9 (6-14) 12 (6-14) Blood Urea Nitrogen 5mg/dL (7-20) 7mg/dL (7-20) Creatinine 1.8mg/dL (0.6-1.0) 2.4mg/dL (0.6-1.0) Estimated GFR (Cockcroft-Gault) 27.7 19.8 Glucose Level 92mg/dL (70-99) 82mg/dL (70-99) Calcium Level 8.3mg/dL (8.5-10.1) 8.6mg/dL (8.5-10.1) Serum Folate 5.81ng/ml (3.2-20.0) Ammonia 38mcmol/L (11-34) Neutrophils (%) (Auto) 63% (31-73) Lymphocytes (%) (Auto) 14% (24-48) Monocytes (%) (Auto) 18% (0-9) Eosinophils (%) (Auto) 4% (0-3) Basophils (%) (Auto) 1% (0-3) Neutrophils # (Auto) 5.5x10^3uL (1.8-7.7) Lymphocytes # (Auto) 1.2x10^3/uL (1.0-4.8) Monocytes # (Auto) 1.6x10^3/uL (0.0-1.1) Eosinophils # (Auto) 0.4x10^3/uL (0.0-0.7) Basophils # (Auto) 0.1x10^3/uL (0.0-0.2) Laboratory Tests Test 06/11/16 13:06 06/12/16 03:41 Ammonia 38mcmol/L (11-34) White Blood Count 8.8x10^3/uL (4.0-11.0) Red Blood Count 2.72x10^6/uL (3.50-5.40) Hemoglobin 8.8g/dL (12.0-15.5) Hematocrit 25.5% (36.0-47.0) Mean Corpuscular Volume 94fL (79-100) Mean Corpuscular Hemoglobin 32pg (25-35) Mean Corpuscular Hemoglobin Concent 34g/dL (31-37) Red Cell Distribution Width 19.8% (11.5-14.5) Platelet Count 50x10^3/uL (140-400) Neutrophils (%) (Auto) 63% (31-73) Lymphocytes (%) (Auto) 14% (24-48) Monocytes (%) (Auto) 18% (0-9) Eosinophils (%) (Auto) 4% (0-3) Basophils (%) (Auto) 1% (0-3) Neutrophils # (Auto) 5.5x10^3uL (1.8-7.7) Lymphocytes # (Auto) 1.2x10^3/uL (1.0-4.8) Monocytes # (Auto) 1.6x10^3/uL (0.0-1.1) Eosinophils # (Auto) 0.4x10^3/uL (0.0-0.7) Basophils # (Auto) 0.1x10^3/uL (0.0-0.2) Sodium Level 139mmol/L (136-145) Potassium Level 3.5mmol/L (3.5-5.1) Chloride Level 104mmol/L (98-107) Carbon Dioxide Level 23mmol/L (21-32) Anion Gap 12 (6-14) Blood Urea Nitrogen 7mg/dL (7-20) Creatinine 2.4mg/dL (0.6-1.0) Estimated GFR (Cockcroft-Gault) 19.8 Glucose Level 82mg/dL (70-99) Calcium Level 8.6mg/dL (8.5-10.1) Microbiology 05/28/16 Blood Culture - Final, Complete NO GROWTH AFTER 5 DAYS Medications Current Medications Sodium Chloride (Iv Sodium Chloride 0.9% 1000ml Bag) 1,000 ml @ 1,000 mls/hr 1X ONCE IV Last administered on 05/28/16 16:07; Start 05/28/16 at 15:45; Stop 05/28/16 at 16:44; Status DC Ondansetron HCl 4 mg 4 mg PRN Q8HRS PRN IV NAUSEA/VOMITING; Start 05/28/16 at 17 :15; Stop 05/29/16 at 09:22; Status DC Sodium Chloride (Iv Sodium Chloride 0.9% 1000ml Bag) 1,000 ml @ 125 mls/hr Q8H IV ; Start 05/28/16 at 17:07; Stop 05/28/16 at 18:38; Status DC Lactulose 20 gm 20 gm PRN BID PRN PO CONSTIPATION; Start 05/28/16 at 18:45; Stop 05/29/16 at 10:00; Status DC Sodium Chloride (Iv Sodium Chloride 0.9% 1000ml Bag) 1,000 ml @ 100 mls/hr Q10H IV Last administered on 06/01/16 01:26; Start 05/28/16 at 19:00; Stop at 15:33; Status DC Acetaminophen (Tylenol) 325 mg PRN Q6HRS PRN PO MILD PAIN / TEMP Last administered on 06/05/16 17:40; Start 05/28/16 at 19:00 Acetaminophen/ Hydrocodone Bitart (Lortab 5/325) 1 tab PRN Q6HRS PRN PO MODERATE TO SEVERE PAIN Last administered on 06/11/16 22:06; Start 05/28/16 at 19:00 Hydralazine HCl (Apresoline) 10 mg PRN Q4HRS PRN IVP ELEVATED BP, SEE COMMENTS ; Start 05/28/16 at 19:00 Ondansetron HCl (Zofran) 4 mg PRN Q8HRS PRN IV NAUSEA/VOMITING Last administered on 05/30/16 03:36; Start 05/28/16 at 19:00 Albuterol Sulfate (Ventolin Neb Soln) 2.5 mg PRN Q4HRS PRN NEB SHORTNESS OF BREATH; Start 05/28/16 at 19:00 Lactulose 20 gm BID PO Last administered on 05/30/16 08:29; Start 05/29/16 at 10 :00; Stop 05/30/16 at 14:43; Status DC Pantoprazole Sodium (Protonix) 40 mg DAILYAC PO Last administered on 06/12/16 07:38; Start 05/29/16 at 10:00 Lactulose 20 gm TID PO ; Start 05/31/16 at 09:00; Stop 05/31/16 at 09:00; Status DC Lactulose 20 gm TID PO Last administered on 05/31/16 08:33; Start 05/30/16 at 14 :45; Stop 05/31/16 at 09:45; Status DC Rifaximin (Xifaxan) 550 mg Q12HR PO Last administered on 06/12/16 08:27; Start 05/30/16 at 15:00 Lactulose 20 gm 20 gm [id number] PO Last administered on 05/31/16 14:59; Start at 14:00; Stop 06/02/16 at 10:11; Status DC Magnesium Sulfate/ Dextrose 50 ml @ 25 mls/hr PRN DAILY PRN IV for Mag < 1.7 on am labs; Start 06/01/16 at 15:30 Sodium Bicarbonate/ Sodium Chloride (Iv Sodium Chloride 0.45%) 1,075 ml @ 100 mls/hr [id number] IV Last administered on 06/02/16 11:51; Start 06/01/16 at 15:45; Stop 06/02/16 at 18:18; Status DC Potassium Chloride (Klor-Con) 40 meq 1X ONCE PO Last administered on 06/02/16 08:39; Start 06/02/16 at 09:00; Stop 06/02/16 at 09:01; Status DC Lactulose 20 gm PRN BID PRN PO CONSTIPATION; Start 06/03/16 at 09:00; Stop at 12:00; Status DC Lactulose 20 gm BID PO Last administered on 06/02/16 11:49; Start 06/02/16 at 12 :00; Stop 06/03/16 at 10:38; Status DC Methylprednisolone Acetate (Depo-Medrol 40mg Vial) 40 mg 1X ONCE IM Last administered on 06/02/16 16:46; Start 06/02/16 at 16:30; Stop 06/02/16 at 16:31; Status DC Bupivacaine HCl (Sensorcaine-Mpf 0.25%) 10 ml 1X ONCE IJ Last administered on 06/02/16 16:46; Start 06/02/16 at 16:30; Stop 06/02/16 at 16:31; Status DC Methylprednisolone Acetate 40 mg 40 mg 1X ONCE IM Last administered on 16:45; Start 06/02/16 at 16:45; Stop 06/02/16 at 16:46; Status DC Sodium Bicarbonate/ Potassium Chloride/Sodium Chloride (Iv Sodium Chloride 0.45% ) 1,095 ml @ 100 mls/hr [id number] IV Last administered on 06/02/16 21:05; Start 06/02/16 at 18:30; Stop 06/03/16 at 05:26; Status DC Potassium Chloride 40 meq 40 meq 1X PRN PRN PO if repeat K < 3.7; Start at 18:15; Stop 06/03/16 at 05:00; Status DC Sodium Bicarbonate 75 meq/Sodium Chloride 1,075 ml @ 100 mls/hr [id number] IV Last administered on 06/04/16 03:30; Start 06/03/16 at 06:00; Stop 06/04/16 at 11: 39; Status DC Magnesium Sulfate/ Dextrose (Magnesium Sulfate PREMIX 4GM) 100 ml @ 25 mls/hr 1X ONCE IV Last administered on 06/03/16 10:10; Start 06/03/16 at 09:00; Stop 06/03/16 at 12:59; Status DC Magnesium Oxide (Magnesium Oxide) 400 mg DAILY PO Last administered on 08:27; Start 06/03/16 at 09:00 Lidocaine/Sodium Bicarbonate (Buffered Lidocaine 1%) 20 ml STK-MED ONCE IJ ; Start 06/03/16 at 10:23; Stop 06/03/16 at 10:24; Status DC Midazolam HCl (Versed) 5 mg STK-MED ONCE .ROUTE ; Start 06/03/16 at 10:24; Stop 06/03/16 at 10:25; Status DC Fentanyl Citrate (Fentanyl 5ml Vial) 250 mcg STK-MED ONCE .ROUTE ; Start at 10:24; Stop 06/03/16 at 10:25; Status DC Lidocaine/Sodium Bicarbonate (Buffered Lidocaine 1%) 20 ml 1X ONCE IJ Last administered on 06/03/16 10:57; Start 06/03/16 at 10:45; Stop 06/03/16 at 10:46; Status DC Midazolam HCl (Versed) 3 mg 1X ONCE IV Last administered on 06/03/16 10:58; Start 06/03/16 at 10:45; Stop 06/03/16 at 10:46; Status DC Fentanyl Citrate (Fentanyl 5ml Vial) 150 mcg 1X ONCE IV Last administered on 10:58; Start 06/03/16 at 10:45; Stop 06/03/16 at 10:46; Status DC Lactulose 20 gm DAILY PO Last administered on 06/04/16 09:02; Start 06/04/16 at 09:00; Stop 06/04/16 at 12:32; Status DC Albuterol/ Ipratropium (Duoneb) 3 ml RTQID NEB Last administered on 06/11/16 19:42; Start 06/03/16 at 20:00 Alprazolam (Xanax) 0.25 mg PRN Q8HRS PRN PO ANXIETY / AGITATION Last administered on 06/10/16 12:13; Start 06/04/16 at 10:15 Haloperidol Lactate (Haldol) 0.5 mg PRN Q6HRS PRN IVP AGITATION, 2ND CHOICE; Start 06/04/16 at 10:15 Lactulose 20 gm BID PO Last administered on 06/11/16 08:28; Start 06/04/16 at 21:00 Midazolam HCl (Versed) 2 mg STK-MED ONCE .ROUTE ; Start 06/04/16 at 12:35; Stop 06/04/16 at 12:36; Status DC Fentanyl Citrate 100 mcg 100 mcg STK-MED ONCE .ROUTE ; Start 06/04/16 at 12:35; Stop 06/04/16 at 12:36; Status DC Cefazolin Sodium (Ancef 1gm Ivpb For Omni) 50 ml @ As Directed STK-MED ONCE IV ; Start 06/04/16 at 12:35; Stop 06/04/16 at 12:36; Status DC Heparin Sodium (Porcine) 10,000 unit STK-MED ONCE .ROUTE ; Start 06/04/16 at 12: 37; Stop 06/04/16 at 12:38; Status DC Lidocaine/ Epinephrine 20 ml 20 ml STK-MED ONCE .ROUTE ; Start 06/04/16 at 12:37 ; Stop 06/04/16 at 12:38; Status DC Heparin Sodium/ Sodium Chloride 500 ml @ As Directed STK-MED ONCE .ROUTE ; Start 06/04/16 at 12:37; Stop 06/04/16 at 12:38; Status DC Heparin Sodium/ Sodium Chloride 1,000 unit 1X ONCE IART Last administered on 13:09; Start 06/04/16 at 13:15; Stop 06/04/16 at 13:16; Status DC Midazolam HCl (Versed) 2 mg 1X ONCE IV Last administered on 06/04/16 13:12; Start 06/04/16 at 13:15; Stop 06/04/16 at 13:16; Status DC Fentanyl Citrate 100 mcg 100 mcg 1X ONCE IV Last administered on 06/04/16 13: 12; Start 06/04/16 at 13:15; Stop 06/04/16 at 13:16; Status DC Cefazolin Sodium (Ancef 1gm Ivpb For Omni) 50 ml @ 100 mls/hr 1X ONCE IV Last administered on 06/04/16 13:13; Start 06/04/16 at 13:15; Stop 06/04/16 at 13: 44; Status DC Heparin Sodium (Porcine) 2,600 unit 1X ONCE INT CAT Last administered on 13:10; Start 06/04/16 at 13:15; Stop 06/04/16 at 13:16; Status DC Lidocaine/ Epinephrine 20 ml 20 ml 1X ONCE IJ Last administered on 06/04/16 13 :11; Start 06/04/16 at 13:15; Stop 06/04/16 at 13:16; Status DC Sodium Chloride (Iv Sodium Chloride 0.9% 1000ml Bag) 1,000 ml @ 1,000 mls/hr Q1H PRN IV hypotension; Start 06/04/16 at 18:12; Stop 06/05/16 at 00:11; Status DC Sodium Chloride (Normal Saline Flush) 10 ml 1X PRN PRN IV AP catheter pack; Start 06/04/16 at 18:15; Stop 06/05/16 at 18:14; Status Cancel Sodium Chloride (Normal Saline Flush) 10 ml 1X PRN PRN IV LAMBSKIN TRIMMER catheter pack; Start 06/04/16 at 18:15; Stop 06/05/16 at 18:14; Status Cancel Info (PHARMACY MONITORING -- do not chart) 1 each PRN DAILY PRN MC SEE COMMENTS ; Start 06/04/16 at 18:15; Status UNV Info (PHARMACY MONITORING -- do not chart) 1 each PRN DAILY PRN MC SEE COMMENTS ; Start 06/04/16 at 18:15; Stop 06/08/16 at 17:45; Status DC Albuterol/ Ipratropium 3 ml 3 ml 1X ONCE NEB Last administered on 06/05/16t 00 :29; Start 06/05/16 at 00:15; Stop 06/05/16 at 00:16; Status DC Sodium Chloride 1,000 ml @ 1,000 mls/hr Q1H PRN IV hypotension; Start 06/05/16 at 11:56; Stop 06/05/16 at 17:55; Status DC Albumin Human (Albuminar) 200 ml @ 200 mls/hr 1X PRN PRN IV Hypotension; Start 06/05/16 at 12:00; Stop 06/05/16 at 17:59; Status DC Acetaminophen (Tylenol) 500 mg 1X PRN PRN PO MILD PAIN / TEMP; Start 06/05/16 at 12:00; Stop 06/06/16 at 11:59; Status DC Diphenhydramine HCl (Benadryl) 25 mg 1X PRN PRN IV ITCHING; Start 06/05/16 at 12:00; Stop 06/06/16 at 11:59; Status DC Diphenhydramine HCl (Benadryl) 25 mg 1X PRN PRN IV ITCHING; Start 06/05/16 at 12:00; Stop 06/06/16 at 11:59; Status DC Sodium Chloride (Normal Saline Flush) 10 ml 1X PRN PRN IV AP catheter pack; Start 06/05/16 at 12:00; Stop 06/06/16 at 11:59; Status DC Sodium Chloride (Normal Saline Flush) 10 ml 1X PRN PRN IV LAMBSKIN TRIMMER catheter pack; Start 06/05/16 at 12:00; Stop 06/06/16 at 11:59; Status DC Info 1 each 1 each PRN DAILY PRN MC SEE COMMENTS; Start 06/05/16 at 12:00; Status UNV Magnesium Sulfate/ Dextrose (Magnesium Sulfate PREMIX 2GM) 50 ml @ 25 mls/hr 1X ONCE IV Last administered on 06/06/16 07:56; Start 06/06/16 at 06:45; Stop 06/06/16 at 08:44; Status DC Potassium Chloride 40 meq 40 meq 1X ONCE PO Last administered on 06/07/16 09: 31; Start 06/07/16 at 08:45; Stop 06/07/16 at 08:46; Status DC Sodium Chloride 1,000 ml @ 1,000 mls/hr Q1H PRN IV hypotension; Start 06/08/16 at 10:39; Stop 06/08/16 at 16:38; Status DC Sodium Chloride (Iv Sodium Chloride 0.9% 1000ml Bag) 1,000 ml @ 400 mls/hr Q2H30M PRN IV PATENCY; Start 06/08/16 at 10:39; Stop 06/08/16 at 22:38; Status DC Info 1 each 1 each PRN DAILY PRN MC SEE COMMENTS; Start 06/08/16 at 10:45 Sodium Chloride (Iv Sodium Chloride 0.9% 1000ml Bag) 1,000 ml @ 75 mls/hr [id number] IV Last administered on 06/12/16 01:05; Start 06/08/16 at 11:45 Iohexol (Omnipaque 240 Mg/ml) 50 ml 1X ONCE PO Last administered on 06/08/16 15:15; Start 06/08/16 at 15:15; Stop 06/08/16 at 15:16; Status DC Lidocaine/Sodium Bicarbonate (Buffered Lidocaine 1%) 20 ml STK-MED ONCE IJ ; Start 06/09/16 at 09:54; Stop 06/09/16 at 09:55; Status DC Midazolam HCl (Versed) 2 mg STK-MED ONCE .ROUTE ; Start 06/09/16 at 15:03; Stop 06/09/16 at 15:04; Status DC Fentanyl Citrate (Fentanyl 2ml Vial) 100 mcg STK-MED ONCE .ROUTE ; Start at 15:03; Stop 06/09/16 at 15:04; Status DC Lidocaine/Sodium Bicarbonate (Buffered Lidocaine 1%) 20 ml 1X ONCE IJ Last administered on 06/09/16 16:35; Start 06/09/16 at 15:15; Stop 06/09/16 at 15:17 ; Status DC Midazolam HCl (Versed) 2 mg 1X ONCE IV Last administered on 06/09/16 16:35; Start 06/09/16 at 15:15; Stop 06/09/16 at 15:17; Status DC Fentanyl Citrate 100 mcg 100 mcg 1X ONCE IV Last administered on 06/09/16 16: 35; Start 06/09/16 at 15:15; Stop 06/09/16 at 15:17; Status DC Desmopressin Acetate/Sodium Chloride (Ddavp/Iv Sodium Chloride 0.9% 50ml) 55 ml @ 110 mls/hr 1X ONCE IV Last administered on 06/09/16 16:34; Start 06/09/16 at 16:30; Stop 06/09/16 at 16:59; Status DC Iohexol (Omnipaque 350 Mg/ml) 90 ml 1X ONCE IV Last administered on 06/10/16 07:53; Start 06/10/16 at 07:30; Stop 06/10/16 at 07:31; Status DC Info 1 each 1 each PRN DAILY PRN MC SEE COMMENTS; Start 06/10/16 at 07:30; Stop 06/12/16 at 07:29; Status DC Sodium Chloride 1,000 ml @ 1,000 mls/hr Q1H PRN IV hypotension; Start 06/10/16 at 08:19; Stop 06/10/16 at 16:00; Status DC Albumin Human (Albuminar) 200 ml @ 200 mls/hr 1X PRN PRN IV Hypotension; Start 06/10/16 at 08:30; Stop 06/10/16 at 16:00; Status DC Acetaminophen (Tylenol) 500 mg 1X PRN PRN PO MILD PAIN / TEMP; Start 06/10/16 at 08:30; Stop 06/10/16 at 16:00; Status DC Diphenhydramine HCl (Benadryl) 25 mg 1X PRN PRN IV ITCHING; Start 06/10/16 at 08:30; Stop 06/10/16 at 16:00; Status DC Diphenhydramine HCl (Benadryl) 25 mg 1X PRN PRN IV ITCHING; Start 06/10/16 at 08:30; Stop 06/10/16 at 16:00; Status DC Sodium Chloride (Normal Saline Flush) 10 ml 1X PRN PRN IV AP catheter pack; Start 06/10/16 at 08:30; Stop 06/10/16 at 16:00; Status DC Sodium Chloride (Normal Saline Flush) 10 ml 1X PRN PRN IV LAMBSKIN TRIMMER catheter pack; Start 06/10/16 at 08:30; Stop 06/10/16 at 16:00; Status DC Labetalol HCl 10 mg 10 mg PRN Q1HR PRN IVP SBP > 180; Start 06/10/16 at 08:30; Stop 06/10/16 at 16:00; Status DC Sodium Chloride (Iv Sodium Chloride 0.9% 1000ml Bag) 1,000 ml @ 400 mls/hr Q2H30M PRN IV PATENCY; Start 06/10/16 at 08:19; Stop 06/10/16 at 16:00; Status DC Info (PHARMACY MONITORING -- do not chart) 1 each PRN DAILY PRN MC SEE COMMENTS ; Start 06/10/16 at 08:30; Status UNV Darbepoetin Ankit (Aranesp) 60 mcg [id number] SQ Last administered on 06/10/16t 22 :14; Start 06/10/16 at 21:00 Folic Acid 1 mg 1 mg DAILY PO Last administered on 06/12/16t 08:29; Start 06/11 at 12:00 Sodium Chloride 1,000 ml @ 1,000 mls/hr Q1H PRN IV hypotension; Start 06/12/16 at 09:36; Stop 06/12/16 at 15:35 Sodium Chloride (Iv Sodium Chloride 0.9% 1000ml Bag) 1,000 ml @ 400 mls/hr Q2H30M PRN IV PATENCY; Start 06/12/16 at 09:36; Stop 06/12/16 at 21:35 Info (PHARMACY MONITORING -- do not chart) 1 each PRN DAILY PRN MC SEE COMMENTS ; Start 06/12/16 at 09:45; Status UNV Active Scripts Active Pantoprazole Sodium 40 Mg Tablet.dr 40 Mg PO DAILYAC 30 Days Reported Neomycin Sulfate 500 Mg Tablet 1 Tab PO BID Spironolactone 50 Mg Tablet 1 Tab PO DAILY Mag-Oxide (Magnesium Oxide) 400 Mg Tablet 2 Tab PO BID Vitamin D3 (Cholecalciferol (Vitamin D3)) 400 Unit Tablet 400 Unit PO BID Fish Oil Conc 1,000 mg Softgel ([place]-3/Dha/Epa/Fish Oil) 1,000 Mg Capsule 3, 000 Mg PO DAILY Multiple Vitamin (Multivitamin With Minerals) 1 Each Tablet 1 Each PO Corzide 40-5 Tablet (Nadolol/Bendroflumethiazide) 1 Each Tablet 0.5 Tab PO DAILY Coenzyme Q10 (Ubidecarenone) 100 Mg Capsule 100 Mg PO DAILY Calcium (Calcium Carbonate) 600 Mg Tablet 600 Mg PO BID Vitals/I & O Vital Sign - Last 24 Hours 06/11/16 06/11/16 06/11/16 06/11/16 11:00 12:29 14:53 15:01 Temp 97.9 97.9 97.9 97.9 Pulse 86 100 Resp 16 16 B/P 143/76 137/75 Pulse Ox 94 91 O2 Delivery Room Air Room Air Room Air Room Air 06/11/16 06/11/16 06/11/16 06/11/16 19:00 19:43 20:00 22:06 Temp 98.1 98.1 Pulse 108 Resp 18 B/P 137/81 Pulse Ox 91 91 91 O2 Delivery Room Air Room Air Room Air Room Air O2 Flow Rate 2.0 2.0 06/11/16 06/11/16 06/12/16 06/12/16 23:00 23:10 03:00 07:00 Temp 99.7 98.8 97.9 99.7 98.8 97.9 Pulse 105 110 99 Resp 18 18 18 B/P 143/83 142/78 146/84 Pulse Ox 91 91 92 91 O2 Delivery Room Air Room Air Room Air Room Air O2 Flow Rate 2.0 Intake and Output 06/11/16 06/11/16 06/12/16 15:00 23:00 07:00 Intake Total 1730 ml Output Total 200 ml 150 ml 225 ml Balance 1530 ml -150 ml -225 ml CEASRIO ABARCA MD Jun 12, 2016 10:18
--- NOTE | 2016-06-12 10:52 | PDOC ---
PROGRESS NOTES Chief Complaint Chief Complaint CC- Altered mental status, hyperammonemia 1. Encephalopathy, possible metabolic, hepatic. 2. Acute kidney injury, ATN,myeloma? 3. Metabolic acidosis. 4. Thrombocytopenia 2/2 cirrhosis likely 5. Anemia, chronic. 6. Hyperbilirubinemia. 7. Alcoholism. 8. high INR 2/2 CIrrhosis likely 9, LEFT thigh pain, 2/2 OA? 10. hypomagnesemia History of Present Illness History of Present Illness Patient was having HD, she was feeling better, was not confused, had abdominal distension but nontender, wants to go home. Plan of care discussed with binder caser and pt. Renal biopsy report is pending. Vitals Vitals Vital Signs Date Time Temp Pulse Resp B/P Pulse Ox O2 Delivery O2 Flow Rate FiO2 06/12/16 08:00 Room Air 06/12/16 07:00 97.9 99 18 146/84 91 97.9 06/11/16 23:10 2.0 Physical Exam Physical Exam aaox2 to person and place only General: Alert, Oriented X3, Cooperative, No acute distress Heart: Regular rate Lungs: Clear Abdomen: Soft, No tenderness, Other (Mild distension, NT) Extremities: No edema Skin: Other (bruising on left flank, no new spots, lightening) Labs LABS Laboratory Tests Test 06/11/16 13:06 06/12/16 03:41 Ammonia 38mcmol/L (11-34) White Blood Count 8.8x10^3/uL (4.0-11.0) Red Blood Count 2.72x10^6/uL (3.50-5.40) Hemoglobin 8.8g/dL (12.0-15.5) Hematocrit 25.5% (36.0-47.0) Mean Corpuscular Volume 94fL (79-100) Mean Corpuscular Hemoglobin 32pg (25-35) Mean Corpuscular Hemoglobin Concent 34g/dL (31-37) Red Cell Distribution Width 19.8% (11.5-14.5) Platelet Count 50x10^3/uL (140-400) Neutrophils (%) (Auto) 63% (31-73) Lymphocytes (%) (Auto) 14% (24-48) Monocytes (%) (Auto) 18% (0-9) Eosinophils (%) (Auto) 4% (0-3) Basophils (%) (Auto) 1% (0-3) Neutrophils # (Auto) 5.5x10^3uL (1.8-7.7) Lymphocytes # (Auto) 1.2x10^3/uL (1.0-4.8) Monocytes # (Auto) 1.6x10^3/uL (0.0-1.1) Eosinophils # (Auto) 0.4x10^3/uL (0.0-0.7) Basophils # (Auto) 0.1x10^3/uL (0.0-0.2) Sodium Level 139mmol/L (136-145) Potassium Level 3.5mmol/L (3.5-5.1) Chloride Level 104mmol/L (98-107) Carbon Dioxide Level 23mmol/L (21-32) Anion Gap 12 (6-14) Blood Urea Nitrogen 7mg/dL (7-20) Creatinine 2.4mg/dL (0.6-1.0) Estimated GFR (Cockcroft-Gault) 19.8 Glucose Level 82mg/dL (70-99) Calcium Level 8.6mg/dL (8.5-10.1) Review of Systems Review of Systems Alert, awake, oriented No SOB, no CP Mild abdominal distension, left leg mild edema, feeling better Assessment and Plan Assessmemt and Plan Assessment: 1. Encephalopathy, possible metabolic, hepatic. 2. Acute kidney injury, ATN,myeloma? 3. Metabolic acidosis. 4. Thrombocytopenia 2/2 cirrhosis likely 5. Anemia, chronic. 6. Hyperbilirubinemia. 7. Alcoholism. 8. high INR 2/2 CIrrhosis likely 9, LEFT thigh pain, 2/2 OA? 10. hypomagnesemia Plan: - Renal biopsy report pending - D/w case management for discharge disposition - Probable discharge today - Bone marrow biopsy is negative for multiple myleoma - Continue lactulose to keep BM 2-3 times per day. - Recheck labs in AM - PT/OT - Appreciate subspecialities inputs and recommendation Problems Medical Problems: (1) Altered mental status Status: Acute (2) Hyperammonemia Status: Acute Problems: Comment Review of Relevant I have reviewed the following items amy (where applicable) has been applied. Labs Laboratory Tests Test 06/11/16 03:17 06/11/16 13:06 06/12/16 03:41 White Blood Count 8.4x10^3/uL (4.0-11.0) 8.8x10^3/uL (4.0-11.0) Red Blood Count 2.70x10^6/uL (3.50-5.40) 2.72x10^6/uL (3.50-5.40) Hemoglobin 8.4g/dL (12.0-15.5) 8.8g/dL (12.0-15.5) Hematocrit 25.0% (36.0-47.0) 25.5% (36.0-47.0) Mean Corpuscular Volume 93fL (79-100) 94fL (79-100) Mean Corpuscular Hemoglobin 31pg (25-35) 32pg (25-35) Mean Corpuscular Hemoglobin Concent 34g/dL (31-37) 34g/dL (31-37) Red Cell Distribution Width 18.5% (11.5-14.5) 19.8% (11.5-14.5) Platelet Count 51x10^3/uL (140-400) 50x10^3/uL (140-400) Reticulocyte Count (auto) 0.9% (0.5-2.5) Sodium Level 140mmol/L (136-145) 139mmol/L (136-145) Potassium Level 3.3mmol/L (3.5-5.1) 3.5mmol/L (3.5-5.1) Chloride Level 104mmol/L (98-107) 104mmol/L (98-107) Carbon Dioxide Level 27mmol/L (21-32) 23mmol/L (21-32) Anion Gap 9 (6-14) 12 (6-14) Blood Urea Nitrogen 5mg/dL (7-20) 7mg/dL (7-20) Creatinine 1.8mg/dL (0.6-1.0) 2.4mg/dL (0.6-1.0) Estimated GFR (Cockcroft-Gault) 27.7 19.8 Glucose Level 92mg/dL (70-99) 82mg/dL (70-99) Calcium Level 8.3mg/dL (8.5-10.1) 8.6mg/dL (8.5-10.1) Serum Folate 5.81ng/ml (3.2-20.0) Ammonia 38mcmol/L (11-34) Neutrophils (%) (Auto) 63% (31-73) Lymphocytes (%) (Auto) 14% (24-48) Monocytes (%) (Auto) 18% (0-9) Eosinophils (%) (Auto) 4% (0-3) Basophils (%) (Auto) 1% (0-3) Neutrophils # (Auto) 5.5x10^3uL (1.8-7.7) Lymphocytes # (Auto) 1.2x10^3/uL (1.0-4.8) Monocytes # (Auto) 1.6x10^3/uL (0.0-1.1) Eosinophils # (Auto) 0.4x10^3/uL (0.0-0.7) Basophils # (Auto) 0.1x10^3/uL (0.0-0.2) Laboratory Tests Test 06/11/16 13:06 06/12/16 03:41 Ammonia 38mcmol/L (11-34) White Blood Count 8.8x10^3/uL (4.0-11.0) Red Blood Count 2.72x10^6/uL (3.50-5.40) Hemoglobin 8.8g/dL (12.0-15.5) Hematocrit 25.5% (36.0-47.0) Mean Corpuscular Volume 94fL (79-100) Mean Corpuscular Hemoglobin 32pg (25-35) Mean Corpuscular Hemoglobin Concent 34g/dL (31-37) Red Cell Distribution Width 19.8% (11.5-14.5) Platelet Count 50x10^3/uL (140-400) Neutrophils (%) (Auto) 63% (31-73) Lymphocytes (%) (Auto) 14% (24-48) Monocytes (%) (Auto) 18% (0-9) Eosinophils (%) (Auto) 4% (0-3) Basophils (%) (Auto) 1% (0-3) Neutrophils # (Auto) 5.5x10^3uL (1.8-7.7) Lymphocytes # (Auto) 1.2x10^3/uL (1.0-4.8) Monocytes # (Auto) 1.6x10^3/uL (0.0-1.1) Eosinophils # (Auto) 0.4x10^3/uL (0.0-0.7) Basophils # (Auto) 0.1x10^3/uL (0.0-0.2) Sodium Level 139mmol/L (136-145) Potassium Level 3.5mmol/L (3.5-5.1) Chloride Level 104mmol/L (98-107) Carbon Dioxide Level 23mmol/L (21-32) Anion Gap 12 (6-14) Blood Urea Nitrogen 7mg/dL (7-20) Creatinine 2.4mg/dL (0.6-1.0) Estimated GFR (Cockcroft-Gault) 19.8 Glucose Level 82mg/dL (70-99) Calcium Level 8.6mg/dL (8.5-10.1) Microbiology 05/28/16 Blood Culture - Final, Complete NO GROWTH AFTER 5 DAYS Medications Current Medications Sodium Chloride (Iv Sodium Chloride 0.9% 1000ml Bag) 1,000 ml @ 1,000 mls/hr 1X ONCE IV Last administered on 05/28/16 16:07; Start 05/28/16 at 15:45; Stop 05/28/16 at 16:44; Status DC Ondansetron HCl 4 mg 4 mg PRN Q8HRS PRN IV NAUSEA/VOMITING; Start 05/28/16 at 17 :15; Stop 05/29/16 at 09:22; Status DC Sodium Chloride (Iv Sodium Chloride 0.9% 1000ml Bag) 1,000 ml @ 125 mls/hr Q8H IV ; Start 05/28/16 at 17:07; Stop 05/28/16 at 18:38; Status DC Lactulose 20 gm 20 gm PRN BID PRN PO CONSTIPATION; Start 05/28/16 at 18:45; Stop 05/29/16 at 10:00; Status DC Sodium Chloride (Iv Sodium Chloride 0.9% 1000ml Bag) 1,000 ml @ 100 mls/hr Q10H IV Last administered on 06/01/16 01:26; Start 05/28/16 at 19:00; Stop at 15:33; Status DC Acetaminophen (Tylenol) 325 mg PRN Q6HRS PRN PO MILD PAIN / TEMP Last administered on 06/05/16 17:40; Start 05/28/16 at 19:00 Acetaminophen/ Hydrocodone Bitart (Lortab 5/325) 1 tab PRN Q6HRS PRN PO MODERATE TO SEVERE PAIN Last administered on 06/11/16 22:06; Start 05/28/16 at 19:00 Hydralazine HCl (Apresoline) 10 mg PRN Q4HRS PRN IVP ELEVATED BP, SEE COMMENTS ; Start 05/28/16 at 19:00 Ondansetron HCl (Zofran) 4 mg PRN Q8HRS PRN IV NAUSEA/VOMITING Last administered on 05/30/16 03:36; Start 05/28/16 at 19:00 Albuterol Sulfate (Ventolin Neb Soln) 2.5 mg PRN Q4HRS PRN NEB SHORTNESS OF BREATH; Start 05/28/16 at 19:00 Lactulose 20 gm BID PO Last administered on 05/30/16 08:29; Start 05/29/16 at 10 :00; Stop 05/30/16 at 14:43; Status DC Pantoprazole Sodium (Protonix) 40 mg DAILYAC PO Last administered on 06/12/16 07:38; Start 05/29/16 at 10:00 Lactulose 20 gm TID PO ; Start 05/31/16 at 09:00; Stop 05/31/16 at 09:00; Status DC Lactulose 20 gm TID PO Last administered on 05/31/16 08:33; Start 05/30/16 at 14 :45; Stop 05/31/16 at 09:45; Status DC Rifaximin (Xifaxan) 550 mg Q12HR PO Last administered on 06/12/16 08:27; Start 05/30/16 at 15:00 Lactulose 20 gm 20 gm [id number] PO Last administered on 05/31/16 14:59; Start at 14:00; Stop 06/02/16 at 10:11; Status DC Magnesium Sulfate/ Dextrose 50 ml @ 25 mls/hr PRN DAILY PRN IV for Mag < 1.7 on am labs; Start 06/01/16 at 15:30 Sodium Bicarbonate/ Sodium Chloride (Iv Sodium Chloride 0.45%) 1,075 ml @ 100 mls/hr [id number] IV Last administered on 06/02/16 11:51; Start 06/01/16 at 15:45; Stop 06/02/16 at 18:18; Status DC Potassium Chloride (Klor-Con) 40 meq 1X ONCE PO Last administered on 06/02/16 08:39; Start 06/02/16 at 09:00; Stop 06/02/16 at 09:01; Status DC Lactulose 20 gm PRN BID PRN PO CONSTIPATION; Start 06/03/16 at 09:00; Stop at 12:00; Status DC Lactulose 20 gm BID PO Last administered on 06/02/16 11:49; Start 06/02/16 at 12 :00; Stop 06/03/16 at 10:38; Status DC Methylprednisolone Acetate (Depo-Medrol 40mg Vial) 40 mg 1X ONCE IM Last administered on 06/02/16 16:46; Start 06/02/16 at 16:30; Stop 06/02/16 at 16:31; Status DC Bupivacaine HCl (Sensorcaine-Mpf 0.25%) 10 ml 1X ONCE IJ Last administered on 06/02/16 16:46; Start 06/02/16 at 16:30; Stop 06/02/16 at 16:31; Status DC Methylprednisolone Acetate 40 mg 40 mg 1X ONCE IM Last administered on 16:45; Start 06/02/16 at 16:45; Stop 06/02/16 at 16:46; Status DC Sodium Bicarbonate/ Potassium Chloride/Sodium Chloride (Iv Sodium Chloride 0.45% ) 1,095 ml @ 100 mls/hr [id number] IV Last administered on 06/02/16 21:05; Start 06/02/16 at 18:30; Stop 06/03/16 at 05:26; Status DC Potassium Chloride 40 meq 40 meq 1X PRN PRN PO if repeat K < 3.7; Start at 18:15; Stop 06/03/16 at 05:00; Status DC Sodium Bicarbonate 75 meq/Sodium Chloride 1,075 ml @ 100 mls/hr [id number] IV Last administered on 06/04/16 03:30; Start 06/03/16 at 06:00; Stop 06/04/16 at 11: 39; Status DC Magnesium Sulfate/ Dextrose (Magnesium Sulfate PREMIX 4GM) 100 ml @ 25 mls/hr 1X ONCE IV Last administered on 06/03/16 10:10; Start 06/03/16 at 09:00; Stop 06/03/16 at 12:59; Status DC Magnesium Oxide (Magnesium Oxide) 400 mg DAILY PO Last administered on 08:27; Start 06/03/16 at 09:00 Lidocaine/Sodium Bicarbonate (Buffered Lidocaine 1%) 20 ml STK-MED ONCE IJ ; Start 06/03/16 at 10:23; Stop 06/03/16 at 10:24; Status DC Midazolam HCl (Versed) 5 mg STK-MED ONCE .ROUTE ; Start 06/03/16 at 10:24; Stop 06/03/16 at 10:25; Status DC Fentanyl Citrate (Fentanyl 5ml Vial) 250 mcg STK-MED ONCE .ROUTE ; Start at 10:24; Stop 06/03/16 at 10:25; Status DC Lidocaine/Sodium Bicarbonate (Buffered Lidocaine 1%) 20 ml 1X ONCE IJ Last administered on 06/03/16 10:57; Start 06/03/16 at 10:45; Stop 06/03/16 at 10:46; Status DC Midazolam HCl (Versed) 3 mg 1X ONCE IV Last administered on 06/03/16 10:58; Start 06/03/16 at 10:45; Stop 06/03/16 at 10:46; Status DC Fentanyl Citrate (Fentanyl 5ml Vial) 150 mcg 1X ONCE IV Last administered on 10:58; Start 06/03/16 at 10:45; Stop 06/03/16 at 10:46; Status DC Lactulose 20 gm DAILY PO Last administered on 06/04/16 09:02; Start 06/04/16 at 09:00; Stop 06/04/16 at 12:32; Status DC Albuterol/ Ipratropium (Duoneb) 3 ml RTQID NEB Last administered on 06/11/16 19:42; Start 06/03/16 at 20:00 Alprazolam (Xanax) 0.25 mg PRN Q8HRS PRN PO ANXIETY / AGITATION Last administered on 06/10/16 12:13; Start 06/04/16 at 10:15 Haloperidol Lactate (Haldol) 0.5 mg PRN Q6HRS PRN IVP AGITATION, 2ND CHOICE; Start 06/04/16 at 10:15 Lactulose 20 gm BID PO Last administered on 06/11/16 08:28; Start 06/04/16 at 21:00 Midazolam HCl (Versed) 2 mg STK-MED ONCE .ROUTE ; Start 06/04/16 at 12:35; Stop 06/04/16 at 12:36; Status DC Fentanyl Citrate 100 mcg 100 mcg STK-MED ONCE .ROUTE ; Start 06/04/16 at 12:35; Stop 06/04/16 at 12:36; Status DC Cefazolin Sodium (Ancef 1gm Ivpb For Omni) 50 ml @ As Directed STK-MED ONCE IV ; Start 06/04/16 at 12:35; Stop 06/04/16 at 12:36; Status DC Heparin Sodium (Porcine) 10,000 unit STK-MED ONCE .ROUTE ; Start 06/04/16 at 12: 37; Stop 06/04/16 at 12:38; Status DC Lidocaine/ Epinephrine 20 ml 20 ml STK-MED ONCE .ROUTE ; Start 06/04/16 at 12:37 ; Stop 06/04/16 at 12:38; Status DC Heparin Sodium/ Sodium Chloride 500 ml @ As Directed STK-MED ONCE .ROUTE ; Start 06/04/16 at 12:37; Stop 06/04/16 at 12:38; Status DC Heparin Sodium/ Sodium Chloride 1,000 unit 1X ONCE IART Last administered on 13:09; Start 06/04/16 at 13:15; Stop 06/04/16 at 13:16; Status DC Midazolam HCl (Versed) 2 mg 1X ONCE IV Last administered on 06/04/16 13:12; Start 06/04/16 at 13:15; Stop 06/04/16 at 13:16; Status DC Fentanyl Citrate 100 mcg 100 mcg 1X ONCE IV Last administered on 06/04/16 13: 12; Start 06/04/16 at 13:15; Stop 06/04/16 at 13:16; Status DC Cefazolin Sodium (Ancef 1gm Ivpb For Omni) 50 ml @ 100 mls/hr 1X ONCE IV Last administered on 06/04/16 13:13; Start 06/04/16 at 13:15; Stop 06/04/16 at 13: 44; Status DC Heparin Sodium (Porcine) 2,600 unit 1X ONCE INT CAT Last administered on 13:10; Start 06/04/16 at 13:15; Stop 06/04/16 at 13:16; Status DC Lidocaine/ Epinephrine 20 ml 20 ml 1X ONCE IJ Last administered on 06/04/16 13 :11; Start 06/04/16 at 13:15; Stop 06/04/16 at 13:16; Status DC Sodium Chloride (Iv Sodium Chloride 0.9% 1000ml Bag) 1,000 ml @ 1,000 mls/hr Q1H PRN IV hypotension; Start 06/04/16 at 18:12; Stop 06/05/16 at 00:11; Status DC Sodium Chloride (Normal Saline Flush) 10 ml 1X PRN PRN IV AP catheter pack; Start 06/04/16 at 18:15; Stop 06/05/16 at 18:14; Status Cancel Sodium Chloride (Normal Saline Flush) 10 ml 1X PRN PRN IV [employer] catheter pack; Start 06/04/16 at 18:15; Stop 06/05/16 at 18:14; Status Cancel Info (PHARMACY MONITORING -- do not chart) 1 each PRN DAILY PRN MC SEE COMMENTS ; Start 06/04/16 at 18:15; Status UNV Info (PHARMACY MONITORING -- do not chart) 1 each PRN DAILY PRN MC SEE COMMENTS ; Start 06/04/16 at 18:15; Stop 06/08/16 at 17:45; Status DC Albuterol/ Ipratropium 3 ml 3 ml 1X ONCE NEB Last administered on 06/05/16 00 :29; Start 06/05/16 at 00:15; Stop 06/05/16 at 00:16; Status DC Sodium Chloride 1,000 ml @ 1,000 mls/hr Q1H PRN IV hypotension; Start 06/05/16 at 11:56; Stop 06/05/16 at 17:55; Status DC Albumin Human (Albuminar) 200 ml @ 200 mls/hr 1X PRN PRN IV Hypotension; Start 06/05/16 at 12:00; Stop 06/05/16 at 17:59; Status DC Acetaminophen (Tylenol) 500 mg 1X PRN PRN PO MILD PAIN / TEMP; Start 06/05/16 at 12:00; Stop 06/06/16 at 11:59; Status DC Diphenhydramine HCl (Benadryl) 25 mg 1X PRN PRN IV ITCHING; Start 06/05/16 at 12:00; Stop 06/06/16 at 11:59; Status DC Diphenhydramine HCl (Benadryl) 25 mg 1X PRN PRN IV ITCHING; Start 06/05/16 at 12:00; Stop 06/06/16 at 11:59; Status DC Sodium Chloride (Normal Saline Flush) 10 ml 1X PRN PRN IV AP catheter pack; Start 06/05/16 at 12:00; Stop 06/06/16 at 11:59; Status DC Sodium Chloride (Normal Saline Flush) 10 ml 1X PRN PRN IV [employer] catheter pack; Start 06/05/16 at 12:00; Stop 06/06/16 at 11:59; Status DC Info 1 each 1 each PRN DAILY PRN MC SEE COMMENTS; Start 06/05/16 at 12:00; Status UNV Magnesium Sulfate/ Dextrose (Magnesium Sulfate PREMIX 2GM) 50 ml @ 25 mls/hr 1X ONCE IV Last administered on 06/06/16 07:56; Start 06/06/16 at 06:45; Stop 06/06/16 at 08:44; Status DC Potassium Chloride 40 meq 40 meq 1X ONCE PO Last administered on 06/07/16 09: 31; Start 06/07/16 at 08:45; Stop 06/07/16 at 08:46; Status DC Sodium Chloride 1,000 ml @ 1,000 mls/hr Q1H PRN IV hypotension; Start 06/08/16 at 10:39; Stop 06/08/16 at 16:38; Status DC Sodium Chloride (Iv Sodium Chloride 0.9% 1000ml Bag) 1,000 ml @ 400 mls/hr Q2H30M PRN IV PATENCY; Start 06/08/16 at 10:39; Stop 06/08/16 at 22:38; Status DC Info 1 each 1 each PRN DAILY PRN MC SEE COMMENTS; Start 06/08/16 at 10:45 Sodium Chloride (Iv Sodium Chloride 0.9% 1000ml Bag) 1,000 ml @ 75 mls/hr [id number] IV Last administered on 06/12/16 01:05; Start 06/08/16 at 11:45 Iohexol (Omnipaque 240 Mg/ml) 50 ml 1X ONCE PO Last administered on 06/08/16 15:15; Start 06/08/16 at 15:15; Stop 06/08/16 at 15:16; Status DC Lidocaine/Sodium Bicarbonate (Buffered Lidocaine 1%) 20 ml STK-MED ONCE IJ ; Start 06/09/16 at 09:54; Stop 06/09/16 at 09:55; Status DC Midazolam HCl (Versed) 2 mg STK-MED ONCE .ROUTE ; Start 06/09/16 at 15:03; Stop 06/09/16 at 15:04; Status DC Fentanyl Citrate (Fentanyl 2ml Vial) 100 mcg STK-MED ONCE .ROUTE ; Start at 15:03; Stop 06/09/16 at 15:04; Status DC Lidocaine/Sodium Bicarbonate (Buffered Lidocaine 1%) 20 ml 1X ONCE IJ Last administered on 06/09/16 16:35; Start 06/09/16 at 15:15; Stop 06/09/16 at 15:17 ; Status DC Midazolam HCl (Versed) 2 mg 1X ONCE IV Last administered on 06/09/16 16:35; Start 06/09/16 at 15:15; Stop 06/09/16 at 15:17; Status DC Fentanyl Citrate 100 mcg 100 mcg 1X ONCE IV Last administered on 06/09/16 16: 35; Start 06/09/16 at 15:15; Stop 06/09/16 at 15:17; Status DC Desmopressin Acetate/Sodium Chloride (Ddavp/Iv Sodium Chloride 0.9% 50ml) 55 ml @ 110 mls/hr 1X ONCE IV Last administered on 06/09/16 16:34; Start 06/09/16 at 16:30; Stop 06/09/16 at 16:59; Status DC Iohexol (Omnipaque 350 Mg/ml) 90 ml 1X ONCE IV Last administered on 06/10/16 07:53; Start 06/10/16 at 07:30; Stop 06/10/16 at 07:31; Status DC Info 1 each 1 each PRN DAILY PRN MC SEE COMMENTS; Start 06/10/16 at 07:30; Stop 06/12/16 at 07:29; Status DC Sodium Chloride 1,000 ml @ 1,000 mls/hr Q1H PRN IV hypotension; Start 06/10/16 at 08:19; Stop 06/10/16 at 16:00; Status DC Albumin Human (Albuminar) 200 ml @ 200 mls/hr 1X PRN PRN IV Hypotension; Start 06/10/16 at 08:30; Stop 06/10/16 at 16:00; Status DC Acetaminophen (Tylenol) 500 mg 1X PRN PRN PO MILD PAIN / TEMP; Start 06/10/16 at 08:30; Stop 06/10/16 at 16:00; Status DC Diphenhydramine HCl (Benadryl) 25 mg 1X PRN PRN IV ITCHING; Start 06/10/16 at 08:30; Stop 06/10/16 at 16:00; Status DC Diphenhydramine HCl (Benadryl) 25 mg 1X PRN PRN IV ITCHING; Start 06/10/16 at 08:30; Stop 06/10/16 at 16:00; Status DC Sodium Chloride (Normal Saline Flush) 10 ml 1X PRN PRN IV AP catheter pack; Start 06/10/16 at 08:30; Stop 06/10/16 at 16:00; Status DC Sodium Chloride (Normal Saline Flush) 10 ml 1X PRN PRN IV [employer] catheter pack; Start 06/10/16 at 08:30; Stop 06/10/16 at 16:00; Status DC Labetalol HCl 10 mg 10 mg PRN Q1HR PRN IVP SBP > 180; Start 06/10/16 at 08:30; Stop 06/10/16 at 16:00; Status DC Sodium Chloride (Iv Sodium Chloride 0.9% 1000ml Bag) 1,000 ml @ 400 mls/hr Q2H30M PRN IV PATENCY; Start 06/10/16 at 08:19; Stop 06/10/16 at 16:00; Status DC Info (PHARMACY MONITORING -- do not chart) 1 each PRN DAILY PRN MC SEE COMMENTS ; Start 06/10/16 at 08:30; Status UNV Darbepoetin Ankit (Aranesp) 60 mcg [id number] SQ Last administered on 06/10/16 22 :14; Start 06/10/16 at 21:00 Folic Acid 1 mg 1 mg DAILY PO Last administered on 06/12/16 08:29; Start 06/11 at 12:00 Sodium Chloride 1,000 ml @ 1,000 mls/hr Q1H PRN IV hypotension; Start 06/12/16 at 09:36; Stop 06/12/16 at 15:35 Sodium Chloride (Iv Sodium Chloride 0.9% 1000ml Bag) 1,000 ml @ 400 mls/hr Q2H30M PRN IV PATENCY; Start 06/12/16 at 09:36; Stop 06/12/16 at 21:35 Info (PHARMACY MONITORING -- do not chart) 1 each PRN DAILY PRN MC SEE COMMENTS ; Start 06/12/16 at 09:45; Status UNV Active Scripts Active Pantoprazole Sodium 40 Mg Tablet.dr 40 Mg PO DAILYAC 30 Days Reported Neomycin Sulfate 500 Mg Tablet 1 Tab PO BID Spironolactone 50 Mg Tablet 1 Tab PO DAILY Mag-Oxide (Magnesium Oxide) 400 Mg Tablet 2 Tab PO BID Vitamin D3 (Cholecalciferol (Vitamin D3)) 400 Unit Tablet 400 Unit PO BID Fish Oil Conc 1,000 mg Softgel (Larned-3/Dha/Epa/Fish Oil) 1,000 Mg Capsule 3, 000 Mg PO DAILY Multiple Vitamin (Multivitamin With Minerals) 1 Each Tablet 1 Each PO Corzide 40-5 Tablet (Nadolol/Bendroflumethiazide) 1 Each Tablet 0.5 Tab PO DAILY Coenzyme Q10 (Ubidecarenone) 100 Mg Capsule 100 Mg PO DAILY Calcium (Calcium Carbonate) 600 Mg Tablet 600 Mg PO BID Vitals/I & O Vital Sign - Last 24 Hours 06/11/16 06/11/16 06/11/16 06/11/16 11:00 12:29 14:53 15:01 Temp 97.9 97.9 97.9 97.9 Pulse 86 100 Resp 16 16 B/P 143/76 137/75 Pulse Ox 94 91 O2 Delivery Room Air Room Air Room Air Room Air 06/11/16 06/11/16 06/11/16 06/11/16 19:00 19:43 20:00 22:06 Temp 98.1 98.1 Pulse 108 Resp 18 B/P 137/81 Pulse Ox 91 91 91 O2 Delivery Room Air Room Air Room Air Room Air O2 Flow Rate 2.0 2.0 06/11/16 06/11/16 06/12/16 06/12/16 23:00 23:10 03:00 07:00 Temp 99.7 98.8 97.9 99.7 98.8 97.9 Pulse 105 110 99 Resp 18 20 18 18 B/P 143/83 142/78 146/84 Pulse Ox 91 91 92 91 O2 Delivery Room Air Room Air Room Air Room Air O2 Flow Rate 2.0 06/12/16 08:00 O2 Delivery Room Air Intake and Output 06/11/16 06/11/16 06/12/16 15:00 23:00 07:00 Intake Total 1730 ml Output Total 200 ml 150 ml 225 ml Balance 1530 ml -150 ml -225 ml MARCEL ENGLISH III DO Jun 12, 2016 10:52
--- NOTE | 2016-06-12 11:09 | PDOC ---
Renal-Progress Notes Subjective Notes Notes NONE History of Present Illness Hx of present illness NO CHANGE Vitals Vitals Vital Signs Date Time Temp Pulse Resp B/P Pulse Ox O2 Delivery O2 Flow Rate FiO2 06/12/16 08:00 Room Air 06/12/16 07:00 97.9 99 18 146/84 91 97.9 06/11/16 23:10 2.0 Weight Weight [ ] I.O. Intake and Output Intake and Output 06/12/16 07:00 Intake Total 1730 ml Output Total 575 ml Balance 1155 ml Intake Oral 730 ml IV Total 1000 ml Output Urine Total 525 ml Urine/Stool Mix 50 ml # Bowel Movements 6 Labs Labs Laboratory Tests Test 06/11/16 13:06 06/12/16 03:41 Ammonia 38mcmol/L (11-34) White Blood Count 8.8x10^3/uL (4.0-11.0) Red Blood Count 2.72x10^6/uL (3.50-5.40) Hemoglobin 8.8g/dL (12.0-15.5) Hematocrit 25.5% (36.0-47.0) Mean Corpuscular Volume 94fL (79-100) Mean Corpuscular Hemoglobin 32pg (25-35) Mean Corpuscular Hemoglobin Concent 34g/dL (31-37) Red Cell Distribution Width 19.8% (11.5-14.5) Platelet Count 50x10^3/uL (140-400) Neutrophils (%) (Auto) 63% (31-73) Lymphocytes (%) (Auto) 14% (24-48) Monocytes (%) (Auto) 18% (0-9) Eosinophils (%) (Auto) 4% (0-3) Basophils (%) (Auto) 1% (0-3) Neutrophils # (Auto) 5.5x10^3uL (1.8-7.7) Lymphocytes # (Auto) 1.2x10^3/uL (1.0-4.8) Monocytes # (Auto) 1.6x10^3/uL (0.0-1.1) Eosinophils # (Auto) 0.4x10^3/uL (0.0-0.7) Basophils # (Auto) 0.1x10^3/uL (0.0-0.2) Sodium Level 139mmol/L (136-145) Potassium Level 3.5mmol/L (3.5-5.1) Chloride Level 104mmol/L (98-107) Carbon Dioxide Level 23mmol/L (21-32) Anion Gap 12 (6-14) Blood Urea Nitrogen 7mg/dL (7-20) Creatinine 2.4mg/dL (0.6-1.0) Estimated GFR (Cockcroft-Gault) 19.8 Glucose Level 82mg/dL (70-99) Calcium Level 8.6mg/dL (8.5-10.1) Micro Micro Microbiology 05/28/16 Blood Culture - Final, Complete NO GROWTH AFTER 5 DAYS Review of Systems Constitutional: yes: alert, weakness Physical Exam General Appearance: no apparent distress, thin, other Respiratory: bilateral CTA Heart: S1S2 Abdomen: soft, bowel sounds present Neurology: alert Assessment Assessment IMP [id number] SHOWED ATN AND NOTHING ELSE MET ENCEPHALOPATHY-BETTER CYTOPENIA COLD AGGLUTININS ANEMIA-BETTER AFTER PRBC PLAN HD TODAY UF TOLERATED STOP IVF'S HAVE ASKED CM TO SET UP OP HD EXPECT RENAL RECOVERY WILL FOLLOW WILLIAM JORGE MD Jun 12, 2016 11:09
[2016-06-12] MEDS: LACTULOSE 20 GM/30 ML SOLUTION. PO SCH (12:54)
[2016-06-12] MEDS: HYDROCODONE/APAP 5/325MG TABLET. PO PRN (13:34)
--- NOTE | 2016-06-16 15:09 | PATHOLOGY ---
PATHOLOGY REPORT * * * * * * * * FINAL DIAGNOSIS: Peripheral smear: - Normocytic normochromic anemia, moderate, with prominent red cell agglutinates.See comment. - Thrombocytopenia, moderate. Bone marrow, aspirate smears, clot section, core biopsy: - Mildly hypercellular marrow showing trilineage hematopoiesis, no significant dyspoiesis, adequate megakaryocytes, and mild polyclonal plasmacytosis. - Focal presence of reticuloendothelial iron stores. COMMENT: The peripheral smear shows a moderate normocytic normochromic anemia with prominent red cell agglutinates, and mild to moderate thrombocytopenia. The bone marrow is mildly hypercellular and shows trilineage hematopoiesis, no significant dyspoiesis, adequate megakaryocytes, and mild plasmacytosis. Red cell agglutinates usually indicate the presence of cold agglutinins, most commonly an IgM antibody. Cold agglutinins can arise in a variety of diseases and are clinically divided into cases occurring after viral or mycoplasma infections, cases associated with lymphoproliferative disorders or plasma cells dyscrasias (cold agglutinin disease), and chronic idiopathic cases which are more frequently seen in elderly women. With regards to this case, there is no morphologic evidence of lymphomatous involvement. There is a mild plasmacytosis. Although two small spikes are identified in the serum protein electrophoresis, bone marrow flow cytometric analysis and immunophenotypic studies performed on the biopsy and clot section show no monoclonal plasma cell population. The cold agglutinin may be playing an etiologic role in the anemia in the form of a compensated hemolytic anemia. In this case, liver disease may also be a contributing factor to the anemia and thrombocytopenia. (JPM:csd; d/t: 06/15-) Special stains: Iron (A1 and aspirate smear); immunoperoxidase stains: CD138 (A1 and B1); in-situ hybridization for kappa and lambda light chains (A1 and B1) REPORT ELECTRONICALLY SIGNED BY: Ry Guillory M.D. DATE/TIME: 06/16/2016 15:08 * * * * * * * * MICROSCOPIC DESCRIPTION: Laboratory Data: The WBC count is 5.2 K/CMM, and the automated WBC differential reveals 86% neutrophils, 12% lymphs, and 2% monos. The RBC count is 2.40 M/CMM, hemoglobin 8.4 G/DL, hematocrit 23.6%, MCV 98 FL, MCH 35 PG, MCHC 36 G/DL, and the RDW is 19.0%. The platelet count is 91 K/CMM. The total protein on admission was 8.4 G/DL, albumin 2.5 G/DL, and globulin 5.9 G/DL. The BUN was 40 MG/DL, and creatinine 4.3 G/DL. The total bilirubin is 2.2 MG/DL, alkaline phosphatase 189 U/L, AST 73 U/L, and ammonia 81 MCMOL/L. The LDH was 266 U/L. The serum iron is 81 UG/DL, TIBC 136 UG/DL, iron saturation 60%, and ferritin 303 NG/ML. The vitamin B12 is 1,273 PG/ML, and folate 13.22 NG/ML. Serum protein electrophoresis reveals two spikes measuring 0.1 and 0.7 G/DL. Serum immunofixation shows IgM monoclonal protein with lambda light chain specificity. The serum IgG is 1,503 MG/DL, IgA 632 MG/DL, and IgM 1,083 MG/DL. The serum kappa is 161.09 MG/L, lambda 103.84 MG/L, and the kappa/lambda ratio is 1.55. The serum erythropoietin is 19.3 MIU/ML. The haptoglobin is 29 MG/DL. Peripheral Smear: The peripheral smear is reviewed. The WBC count is in the low normal range. The WBC differential reveals a predominance of segmented neutrophils, with a small population of lymphocytes and occasional monocytes noted. Some of the neutrophils show toxic granulation. Neutrophils do not show dysplastic changes. There is a rare circulating myelocyte. There is no significant neutrophilic left shift. There are no circulating blasts. There is no leukoerythroblastic reaction. The lymphocyte population consists predominantly of small lymphocytes. Red blood cells predominantly appear normochromic and normocytic. There are prominent red cell agglutinates comprised of clumps and aggregates of red blood cells. Platelets are mildly decreased. Occasional large platelets are noted. Aspirate Smears: Two Talavera's-stained and one iron-stained aspirate smears are examined. The smears contain multiple cellular and fatty marrow particles. The M/E ratio varies from normal to focal areas showing an erythroid hyperplasia. Erythroid maturation predominantly appears normoblastic. There are no megaloblastic or overt dysplastic changes. Granulopoiesis qualitatively appears normal. There is a modest left shift of granulopoiesis. There are no obvious dysplastic changes. There is no increase of blasts. Megakaryocytes appear adequate in number and are of variable ploidy. There are foci of mild plasmacytosis showing between 5% and 10% plasma cells. Other areas show a smaller proportion of plasma cells. The plasma cells are of small to medium size and have a relatively mature appearance. There are admixed small lymphocytes with no significant increase of lymphocytes noted. There are no cells foreign to the marrow. The iron stain shows focal stainable iron. No ringed sideroblasts are identified. Bone Marrow Biopsy and Clot Sections: Sections of the biopsy reveal a segment of bone marrow showing prominent areas of aspiration artifact. Preserved areas of the biopsy range between 20-30% and 60-70% cellular. The clot section contains multiple marrow particles, the majority of which range between 20-30% and 60-70% cellularity. There is a good admixture of erythroid and granulocytic precursors, which are present in varying stages of maturation. There is no increase of blasts. Megakaryocytes focally appear adequate in number and are of variable ploidy. There are admixed plasma cells, which are focally aligned along blood vessels. There are no areas of sheet like replacement by plasma cells. There is an occasional small loose lymphoid aggregate within the clot section comprised of small lymphocytes. There are no abnormal lymphoid aggregates, granulomas or cells foreign to the marrow. To further characterize the target cells in a tissue architectural context, immunoperoxidase stains for CD138 and in-situ hybridization for kappa and lambda light chain are obtained on the biopsy and clot section and yield the following results: CD138 (B1): plasma cells positive and have an interstitial distribution and are focally aligned along blood vessels; plasma cells comprise approximately 5-10% of nucleated marrow cells [place] and lambda JANINA (B1): plasma cells appear polyclonal CD138 (A1): plasma cells positive and have an interstitial distribution and are focally aligned along blood vessels; plasma cells comprise approximately 5-10% of the nucleated marrow cells [place] and lambda JANINA (A1): plasma cells appear polyclonal. The iron stain of the clot section shows focal reticuloendothelial iron stores. No ringed sideroblasts are identified. Special Studies: Bone marrow submitted for flow cytometry has a viability of 97.6%. Granulocytes comprise 80.1% of total cells and show phenotypic evidence of maturation. Monocytes comprise 5.4% of total cells and show phenotypic evidence of maturation. CD45 dim, CD34 positive cells comprise 1.4% of total cells. Plasma cells comprise 0.8% of total cells and show unremarkable surface marker expression. Lymphocytes comprise 8.2% of total cells. T-cells comprise 81% of lymphoid cells and show a CD4/CD8 ratio of about 1.8. NK-cells comprise 8% of lymphoid cells. Mature B-cells comprise 5% of lymphoid cells and are too few for reliable clonality determination and show an obscured light chain pattern. Bone marrow submitted for cytogenetic analysis shows a normal female karyotype in all cells analyzed. (JPM:mgr:csd; d/t: 06/09-) GROSS PATHOLOGY: A. Received in formalin labeled "Taylor Hernández and BM asp clot," is blood coagulum, measuring 2.8 x 2.8 x 0.5 cm in aggregate dimensions. The specimen is submitted entirely in cassette A1. B. Received in formalin labeled "Taylor Hernández" are 2 needle cores of gallegos bone, measuring 0.3 and 1.2 cm in length and 0.2 cm in diameter. The specimen is submitted entirely in cassette B1, following decalcification. (TTL; 06/03/2016) INITIAL CPT CODE(S): 83779 A; 37132, 66528, 13278, 14286, 40696 B; 33427, 63900, 61940, 63052, 77887 C; 50779, 99100 Professional services performed [place] [facility] [place] [address] Technical services performed by [facility] at [address] [place] [address], [place] [address]. SPECIMEN(S) RECEIVED: A.Bone marrow, clot B.Bone marrow, biopsy C.Bone marrow, aspirate smears D.Peripheral smear CLINICAL HISTORY: Abnormal protein spike, myeloma? PATIENT: TAYLOR HERNÁNDEZ /AGE: 11 1945 (Age: 71) PATIENT #: [id number] ALT CASE #: SPECIMEN COLLECTION DATE: 06/03/2016 SPECIMEN RECEIVED DATE: 06/03/2016 [facility] - [address] [place] [address] - PHONE: [phone] * * * END OF REPORT * * *
--- NOTE | 2016-06-17 09:12 | PATHOLOGY ---
PATHOLOGY REPORT * * * * * * * * FINAL DIAGNOSIS: Please see next page for scanned image of report submitted by chain sales consultant pathologist, Todd Duncan M.D. (JPM:alfredo; d/t: 06/17/2016) REPORT ELECTRONICALLY SIGNED BY: Ry Guillory M.D. DATE/TIME: 06/17/2016 09:11 * * * * * * * * INITIAL CPT CODE(S): A; 43138 Professional and Technical services performed by [facility], [address] , [address], [place] [address]. SPECIMEN(S) RECEIVED: A.Percutaneous renal biopsy CLINICAL HISTORY: ARF/ATN PATIENT: JAMES BARR /AGE: 11 1945 (Age: 71) PATIENT #: [id number] ALT CASE #: SPECIMEN COLLECTION DATE: 06/09/2016 SPECIMEN RECEIVED DATE: 06/10/2016 [facility] - [id number] [place] [address] - PHONE: [phone] * * * END OF REPORT * * *
== END 2016-06-12 15:23 | disposition home health service (06) | DRG 682 ==
LOC: ER 14:16 → 5 NORTH 16:51
PROVIDERS: ADMIT Internal Medicine; ATTEND Internal Medicine
PROC: 07DR3ZX Extraction of Iliac Bone Marrow, Percutaneous Approach, Diagnostic (ICD-10-PCS; principal; 2016-06-03)
PROC: 5A1D60Z (ICD-10-PCS; 2016-06-04)
PROC: 02H633Z Insertion of Infusion Device into Right Atrium, Percutaneous Approach (ICD-10-PCS; 2016-06-05)
PROC: B2141ZZ Fluoroscopy of Right Heart using Low Osmolar Contrast (ICD-10-PCS; 2016-06-05)
PROC: B244ZZZ Ultrasonography of Right Heart (ICD-10-PCS; 2016-06-05)
PROC: 30233N1 Transfusion of Nonautologous Red Blood Cells into Peripheral Vein, Percutaneous Approach (ICD-10-PCS; 2016-06-05)
PROC: 0TB03ZX Excision of Right Kidney, Percutaneous Approach, Diagnostic (ICD-10-PCS; 2016-06-10)
DX: N17.0 Acute kidney failure with tubular necrosis (principal); G93.41 Metabolic encephalopathy; D59.1 Other autoimmune hemolytic anemias; E87.2 Acidosis; J98.11 Atelectasis; C90.00 Multiple myeloma not having achieved remission; D69.59 Other secondary thrombocytopenia; E78.00 Pure hypercholesterolemia, unspecified; E78.5 Hyperlipidemia, unspecified; E83.42 Hypomagnesemia; F10.20 Alcohol dependence, uncomplicated; F17.200 Nicotine dependence, unspecified, uncomplicated; I12.9 Hypertensive chronic kidney disease with stage 1 through stage 4 chronic kidney disease, or unspecified chronic kidney disease; I25.10 Atherosclerotic heart disease of native coronary artery without angina pectoris; J44.9 Chronic obstructive pulmonary disease, unspecified; K21.9 Gastro-esophageal reflux disease without esophagitis; K70.31 Alcoholic cirrhosis of liver with ascites; K70.40 Alcoholic hepatic failure without coma; M17.0 Bilateral primary osteoarthritis of knee; N18.3 Chronic kidney disease, stage 3 (moderate); S30.1XXA Contusion of abdominal wall, initial encounter; Z90.49 Acquired absence of other specified parts of digestive tract; Z82.49 Family history of ischemic heart disease and other diseases of the circulatory system
CPT/HCPCS: 36415; 36558; 38221; 50200; 51701; 70450; 71010; 71250; 73502; 73565; 74175; 74176; 76770; 76937; 77001; 77012; 77075; 80048; 80053; 80069; 80076; 81001; 82105; 82140; 82607; 82668; 82728; 82746; 82947; 83010; 83520; 83540; 83550; 83615; 83735; 84132; 84165; 84166; 84300; 84484; 85007; 85027; 85045; 85384; 85610; 85730; 86308; 86334; 86705; 86706; 86738; 86850; 86880; 86900; 86901; 86920; 87040; 87340; 87341; 88184; 88185; 88237; 93005; 93976; 94250; 94640; 94760; 96360; 96361; A4215; A4314; C1713; C1750; C1769; C1892; G0364; J0690; J0881; J1030; J2250; J2405; J2597; J3010; J3475; J3480; J3490; J7030; J7060; J7620; P9016; Q9966; Q9967; 96125; 97002; 97110; 97116; 97530; 97535; 99285-25

== ENCOUNTER 2016-06-25 13:38 | Inpatient (IN) | payer MEDICARE, OTHER ==
[~2016-06-25] VITALS: Ht 152.4 cm; Wt 55.4 kg
[2016-06-25 14:14] LABS: INR 1.7 (0.8-1.1); PROTHROMBIN TIME PATIENT 19.1 SEC (11.7-14.0)
[2016-06-25 14:26] LABS: CALCIUM 9.1 mg/dL (8.5-10.1); CREATININE 2.1 mg/dL (0.6-1.0); GFR 23.2; POTASSIUM 4.6 mmol/L (3.5-5.1)
--- NOTE | 2016-06-25 14:26 | RAD ---
EXAM: Head CT without contrast. HISTORY: Altered mental status. TECHNIQUE: Computed tomographic images of the head were obtained without contrast. COMPARISON: 06/17/2016. FINDINGS: There is no acute or subacute extra-axial or intraparenchymal hemorrhage. There is no mass effect or midline shift. There is no hydrocephalus. There are areas of decreased attenuation within the cerebral white matter, nonspecific and likely related to chronic small vessel disease. There is cerebral and cerebellar atrophy. The visualized portions of the orbits, paranasal sinuses and mastoid air cells are unremarkable. No suspicious calvarial lesion is seen. IMPRESSION: 1. Scattered areas of hypodensity within the cerebral white matter, likely due to chronic small vessel disease. 2. Cerebral and cerebellar atrophy. 3. Note is made that MRI is more sensitive for acute infarction. PQRS Compliance Statement: One or more of the following individualized dose reduction techniques were utilized for this examination: 1. Automated exposure control 2. Adjustment of the mA and/or kV according to patient size 3. Use of iterative reconstruction technique
[2016-06-25 14:31] LABS: ALBUMIN 2.3 g/dL (3.4-5.0); ALBUMIN/GLOBULIN RATIO 0.5 (1.0-1.7); TOTAL BILIRUBIN 3.2 mg/dL (0.2-1.0); TOTAL PROTEIN 7.1 g/dL (6.4-8.2)
--- NOTE | 2016-06-25 14:35 | RAD ---
EXAM: Chest, single view. HISTORY: Mental status changes. COMPARISON: 06/03/2016. FINDINGS: A frontal view of the chest is obtained. There is stable small to moderate left and small right pleural effusions. There is left greater than right lower lobe atelectasis or infiltrate. The heart is normal in size. There is a right port catheter with the tip in the superior vena cava. IMPRESSION: Stable small to moderate left and small right pleural effusions and left greater than right lower lobe atelectasis or infiltrate.
[2016-06-25 14:36] LABS: ETHANOL < 10 mg/dL (0-10)
--- NOTE | 2016-06-25 14:42 | EKG ---
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
[2016-06-25 14:51] LABS: BILIRUBIN,URINE MODERATE (NEG); GLUCOSE,URINE NEGATIVE (NEG); NITRITE,URINE NEGATIVE (NEG); PH,URINE 5.5; PROTEIN,URINE 100 mg/dL (NEG-TRACE); UROBILINOGEN,URINE 0.2 mg/dL (0.2 mg/dL)
[2016-06-25 14:53] LABS: BASO % 0 % (0-3); EOS % 1 % (0-3); HEMATOCRIT 29.7 % (36.0-47.0); HEMOGLOBIN 10.2 g/dL (12.0-15.5); LYMPH # 0.8 x10^3/uL (1.0-4.8); LYMPH % 9 % (24-48); MEAN CORPUSCULAR HEMOGLOBIN 35 pg (25-35); MEAN CORPUSCULAR HGB CONC 34 g/dL (31-37); MEAN CORPUSCULAR VOLUME 101 fL (79-100); MONO % 16 % (0-9); NEUT % 74 % (31-73); PLATELET COUNT 109 x10^3/uL (140-400); RED BLOOD COUNT 2.94 x10^6/uL (3.50-5.40); RED CELL DISTRIBUTION WIDTH 22.7 % (11.5-14.5); WHITE BLOOD COUNT 9.5 x10^3/uL (4.0-11.0)
[2016-06-25 15:00] LABS: BACTERIA,URINE FEW /HPF (0-FEW); RBC,URINE >40 /HPF (0-2)
[2016-06-25 15:01] LABS: SQUAMOUS EPITHELIAL CELL,UR FEW /LPF
[2016-06-25 15:04] LABS: BARBITURATES NEG (NEG); BENZODIAZEPINES NEG (NEG); CANNABINOIDS NEG (NEG); COCAINE NEG (NEG); ETHANOL, URINE NEG (NEG); METHADONE NEG (NEG); OPIATES POS (NEG); PHENCYCLIDINE NEG (NEG)
[2016-06-25 15:14] LABS: PLT ESTIMATE DECREASED (ADEQUATE)
[2016-06-25] MEDS ORDERED: ACETAMINOPHEN 325 MG TABLET. PO PRN (15:15)
[2016-06-25] MEDS ORDERED: NALOXONE 0.4 MG/ML VIAL. IV ONE (15:15)
[2016-06-25 15:23] LABS: ANISOCYTOSIS MOD; POIKILOCYTOSIS SLIGHT
[2016-06-25 15:24] LABS: BURR CELLS PRESENT; TARGET CELLS PRESENT
--- NOTE | 2016-06-25 15:28 | PHYS DOC ---
Past Medical History Past Medical History: Alcoholism, Anxiety, COPD, GERD, High Cholesterol Additional Past Medical Histor: cirrhosis of liver Past Surgical History: Cholecystectomy, Other Additional Past Surgical Histo: ABD SURGERY, back surgery Alcohol Use: Heavy Drug Use: None Adult General Chief Complaint Chief Complaint: ALTERED MENTAL STATUS HPI HPI Patient is a 71 year old female who presents with altered mental status. Patient brought from dialysis where she reportedly became confused shelter through her 3 hour dialysis. History very limited by her clinical condition. She denies any pain at this time, unsure what occurred at dialysis. PCP is Dr. Richardson. Unknown whether she has recently missed any dialysis. No family present at bedside. Review of Systems Review of Systems Constitutional: Denies fever or chills Eyes: Denies change in visual acuity HENT: Denies nasal congestion or sore throat Respiratory: Denies cough or shortness of breath Cardiovascular: Denies chest pain or edema GI: Denies abdominal pain, nausea, vomiting, bloody stools or diarrhea : Denies dysuria or hematuria Musculoskeletal: Denies back pain or joint pain Integument: Denies rash or skin lesions Neurologic: Reports altered mental status. Denies headache, focal weakness or sensory changes Current Medications Current Medications Allergies Allergies Allergies Coded Allergies Type Severity Reaction Last Updated Verified No Known Drug Allergies 03/13/13 No Physical Exam Physical Exam Constitutional: Well developed, well nourished, no acute distress, non-toxic appearance. HENT: Normocephalic, atraumatic, bilateral external ears normal, oropharynx moist, nose normal. Eyes: PERRLA 3 mm bilaterally, EOMI, conjunctiva normal, no discharge. Neck: supple, no stridor. Cardiovascular: RRR, no murmurs, no edema. Lungs & Thorax: LCTAB, no wheezing, no respiratory distress. Abdomen: soft, nontender, nondistended. Skin: Warm, dry, no erythema, no rash. Back: No tenderness. Extremities: No tenderness, no edema. Neurologic: Alert and oriented to person & place only, CN2-12 grossly intact though slow to follow commands, symmetric but weak strength to bilateral upper & lower extremities, symmetric sensation to upper & lower extrmeities, no focal deficits noted. Psychologic: confused Current Patient Data Vital Signs Vital Signs Date Time Temp Pulse Resp B/P Pulse Ox O2 Delivery O2 Flow Rate FiO2 06/25/16 14:24 108 18 137/69 93 Room Air 06/25/16 13:40 98.4 98.4 Lab Values Laboratory Tests Test 06/25/16 13:45 06/25/16 14:30 White Blood Count 9.5x10^3/uL (4.0-11.0) Red Blood Count 2.94x10^6/uL (3.50-5.40) L Hemoglobin 10.2g/dL (12.0-15.5) L Hematocrit 29.7% (36.0-47.0) L Mean Corpuscular Volume 101fL (79-100) H Mean Corpuscular Hemoglobin 35pg (25-35) Mean Corpuscular Hemoglobin Concent 34g/dL (31-37) Red Cell Distribution Width 22.7% (11.5-14.5) H Platelet Count 109x10^3/uL (140-400) #L Neutrophils (%) (Auto) 74% (31-73) H Lymphocytes (%) (Auto) 9% (24-48) L Monocytes (%) (Auto) 16% (0-9) H Eosinophils (%) (Auto) 1% (0-3) Basophils (%) (Auto) 0% (0-3) Neutrophils # (Auto) 7.0x10^3uL (1.8-7.7) Lymphocytes # (Auto) 0.8x10^3/uL (1.0-4.8) L Monocytes # (Auto) 1.6x10^3/uL (0.0-1.1) H Eosinophils # (Auto) 0.1x10^3/uL (0.0-0.7) Basophils # (Auto) 0.0x10^3/uL (0.0-0.2) Platelet Estimate Decreased (ADEQUATE) Poikilocytosis Slight Anisocytosis Mod Target Cells Present David Cells Present Prothrombin Time 19.1SEC (11.7-14.0) H Prothrombin Time INR 1.7 (0.8-1.1) H PTT 62SEC (24-38) H Sodium Level 139mmol/L (136-145) Potassium Level 4.6mmol/L (3.5-5.1) Chloride Level 102mmol/L (98-107) Carbon Dioxide Level 23mmol/L (21-32) Anion Gap 14 (6-14) Blood Urea Nitrogen 7mg/dL (7-20) Creatinine 2.1mg/dL (0.6-1.0) H Estimated GFR (Cockcroft-Gault) 23.2 BUN/Creatinine Ratio 3 (6-20) L Glucose Level 84mg/dL (70-99) Calcium Level 9.1mg/dL (8.5-10.1) Total Bilirubin 3.2mg/dL (0.2-1.0) H Aspartate Amino Transferase (AST) 104U/L (15-37) H Alanine Aminotransferase (ALT) 29U/L (14-59) Alkaline Phosphatase 164U/L (46-116) H Troponin I Quantitative < 0.017ng/mL (0.000-0.055) SZ-Hjg-K-Type Natriuretic Peptide 8872pg/mL (0-124) H Total Protein 7.1g/dL (6.4-8.2) Albumin 2.3g/dL (3.4-5.0) L Albumin/Globulin Ratio 0.5 (1.0-1.7) L Thyroid Stimulating Hormone (TSH) 2.526uIU/mL (0.358-3.74) Salicylates Level < 2.8mg/dL (2.8-20.0) L Salicylate Last Dose Date Unk Salicylate Last Dose Time Unk Acetaminophen Level < 10mcg/ml (10-30) L Acetaminophen Last Dose Date Unk Acetaminophen Last Dose Time Unk Ethyl Alcohol Level < 10mg/dL (0-10) Urine Collection Type U cath Urine Color Red Urine Clarity Cloudy Urine pH 5.5 Urine Specific [place] 1.020 Urine Protein 100mg/dL (NEG-TRACE) Urine Glucose (UA) Negativemg/dL (NEG) Urine Ketones (Stick) Tracemg/dL (NEG) Urine Blood Large (NEG) Urine Nitrite Negative (NEG) Urine Bilirubin Moderate (NEG) Urine Urobilinogen Dipstick 0.2mg/dL (0.2 mg/dL) Urine Leukocyte Esterase Small (NEG) Urine RBC >40/HPF (0-2) Urine WBC 5-10/HPF (0-4) Urine Squamous Epithelial Cells Few/LPF Urine Renal Epithelial Cells Few/LPF Urine Bacteria Few/HPF (0-FEW) Urine Hyaline Casts Few/HPF Urine Granular Casts Occasional/HPF Urine Opiates Screen Pos (NEG) Urine Methadone Screen Neg (NEG) Urine Barbiturates Neg (NEG) Urine Phencyclidine Screen Neg (NEG) Urine Amphetamine/Methamphetamine Neg (NEG) Urine Benzodiazepines Screen Neg (NEG) Urine Cocaine Screen Neg (NEG) Urine Cannabinoids Screen Neg (NEG) Urine Ethyl Alcohol Neg (NEG) Laboratory Tests 06/25/16 13:45 Laboratory Tests 06/25/16 13:45 EKG EKG Interpreted by me: Normal sinus rhythm rate 89, no acute ST or T wave changes, Q waves in 3 and aVF, normal intervals, no ectopy [] Radiology/Procedures Radiology/Procedures PROCEDURE: HEAD WO CONTRAST EXAM: Head CT without contrast. HISTORY: Altered mental status. TECHNIQUE: Computed tomographic images of the head were obtained without contrast. COMPARISON: 06/17/2016. FINDINGS: There is no acute or subacute extra-axial or intraparenchymal hemorrhage. There is no mass effect or midline shift. There is no hydrocephalus. There are areas of decreased attenuation within the cerebral white matter, nonspecific and likely related to chronic small vessel disease. There is cerebral and cerebellar atrophy. The visualized portions of the orbits, paranasal sinuses and mastoid air cells are unremarkable. No suspicious calvarial lesion is seen. IMPRESSION: 1. Scattered areas of hypodensity within the cerebral white matter, likely due to chronic small vessel disease. 2. Cerebral and cerebellar atrophy. 3. Note is made that MRI is more sensitive for acute infarction. PQRS Compliance Statement: One or more of the following individualized dose reduction techniques were utilized for this examination: 1. Automated exposure control 2. Adjustment of the mA and/or kV according to patient size 3. Use of iterative reconstruction technique DICTATED and SIGNED BY: MAYELA MUNIZ MD DATE: 06/25/16 1417 PROCEDURE: CHEST AP ONLY EXAM: Chest, single view. HISTORY: Mental status changes. COMPARISON: 06/03/2016. FINDINGS: A frontal view of the chest is obtained. There is stable small to moderate left and small right pleural effusions. There is left greater than right lower lobe atelectasis or infiltrate. The heart is normal in size. There is a right port catheter with the tip in the superior vena cava. IMPRESSION: Stable small to moderate left and small right pleural effusions and left greater than right lower lobe atelectasis or infiltrate. DICTATED and SIGNED BY: MAYELA MUNIZ MD DATE: 06/25/16 4303[] Course & Med Decision Making Course & Med Decision Making Pertinent Labs and Imaging studies reviewed. (See chart for details) Patient presents with altered mental status. Difficult to obtain history, not clear what is her baseline. She has stable vitals, no significant complaints, but obviously not well enough to care for herself at this time. No findings of acute stroke. Obtained labs, EKG, CXR, head CT, UA. She has findings of pulmonary infiltrate consistent with healthcare associated pneumonia, not in sepsis. Gave broad spectrum antibiotics. Gave narcan as her med record indicates use of chronic narcotic pain medication, no significant change in mental status. Recommend admission to the hospital for further evaluation & treatment. Discussed with Dr. Parker who agrees to admit to inpatient status on behalf of Dr. rCow. Consults to Dr. Hurd of nephrology, Dr. Ramos of neurology. Patient admitted in stable condition. [] Dragon Disclaimer Dragon Disclaimer This electronic medical record was generated, in whole or in part, using a voice recognition dictation system. Departure Departure Impression: Primary Impression: Altered mental state Additional Impression: Healthcare associated bacterial pneumonia Disposition: ADMITTED INPATIENT Condition: STABLE Problem Qualifiers ZHANNA GONZALEZ MD Jun 25, 2016 15:28
[2016-06-25] MEDS: ONDANSETRON PF 4 MG/2 ML VIAL. IV PRN (15:29)
[2016-06-25] MEDS ORDERED: LEVOFLOXACIN PER PHARMACY MC PRN (15:30)
[2016-06-25] MEDS ORDERED: PIP/TAZO PER PHARMACY MC PRN (15:30)
[2016-06-25] MEDS ORDERED: PIPERACILLIN/TAZOBACTAM 2.25 GM in IV NORMAL SALINE 50ML 50 ML IV ONE (15:45)
[2016-06-25] MEDS ORDERED: VANCOMYCIN 1.25 GM in IV NORMAL SALINE 250ML 250 ML IV ONE (15:45)
--- NOTE | 2016-06-25 16:16 | ACF ---
Admission Forms Criteria MENTAL STATUS CHANGE Clinical Indications for Inpatient Care (Place 'X' for any and all applicable criteria): Ongoing inpatient care may be needed for ANY ONE of the following(1)(2)(3)(5)(6) : [X]I. Suspected serious etiology (eg, medical disorder, AGRONOMY SPECIALIST event) of mental status change [ ]II. Danger to self or others not manageable at lower level of care [ ]III. Grave disability (eg, inability to perform self care necessary at lower level of care) [ ]IV. Agitation or inappropriate behavior interfering with care for primary condition (eg, attempting to discontinue lines or drains prematurely, unable to cooperate with respiratory care) [ ]V. Delirium [A] [D][E] as described by ANY ONE of the following(26): [ ]a) Delirium due to alcohol or sedative [F] withdrawal [ ]b) Delirium of uncertain etiology that has not responded to appropriate empiric treatment [ ]c) Delirium that prevents performance of a life-sustaining function (eg, feeding or hydrating oneself) [ ]. General contraindications and/or Inappropriate clinical situations for Observational Care in patients with Mental Status Change, when ANY ONE of the following is required: [ ]a) Prediction of prolongation of LOS based on ANY ONE of the following may be considered as a contraindication for observational care 2, 3, 4, 5, 6, 7, 8, 9, 10, 11 [ ]i) Age > 65 yrs. [ ]ii) Patient arriving by ambulance [ ]iii) Patient with high acuity [ ]iv) Patient requiring vital sign monitoring [ ]v) Patient on IV medication [ ]b) Systolic blood pressures 180mmHg 3,12 [ ]c) Patient with altered mental status including delirium and other alteration of consciousness, (3) [ ]d) Patient whose discharge disposition will be to a senior living home or rehabilitation home should not be managed in Emergency Department Observation Unit. CMS rule requires 3 days hospital stay before such placement.3,13 [ ]e) Patient with failure to thrive due to broad array of etiologies 3,16,17 [ ]f) Inability to ambulate 3,14 Extended stay beyond goal length of stay for the primary condition may be needed until ALL of the following are present(3)(5): [ ]a) Underlying medical etiology of mental status change is absent, or has been established and adequately treated [ ]b) Danger to self or others is absent or manageable at lower level of care. [ ]c) Behavior crisis management, including physical or chemical restraints, is not required or available at lower level of car [ ]d) Substance or alcohol withdrawal is absent or manageable at lower level of care. [ ]e) Behavioral symptoms (eg, agitation, somnolence, inappropriate behavior) are absent, or are manageable at lower level of care. The original [facility] content created by [facility] has been revised. The portions of the content which have been revised are identified through the use of italic text or in bold, and [facility] has neither reviewed nor approved the modified material. All other unmodified content is copyright [facility]. Please see references footnoted in the original [facility] edition 2016 Admission Criteria Met?: Yes CARLENE CHATMAN Jun 25, 2016 16:16
[2016-06-25] MEDS ORDERED: HYDR-2678 PO (16:31)
[2016-06-25 16:57] VITALS: BP 105/70
[2016-06-25 16:58] VITALS: BP 105/70
--- NOTE | 2016-06-25 17:06 | PDOC2 ---
NEUROLOGY CONSULT Date of Admission Date of Admission DATE: 06/25/16 TIME: 16:45 Reason for Consult Reason for Consult: IMPRESSION: Metabolic encephalopathy. Confusion. Hepatic cirrhosis, alcohol related. Hyperbilirubinemia. Renal failure on dialysis. UTI CHF? Pulmonary effusion. COPD HTN HLD Alcoholism. RECOMMENDATIONS/PLAN: EEG Lab: see orders. Treat medical diseases. Repeat HCT tomorrow as needed. OT/PT. HISTORY OF THE PRESENT ILLNESS: 71-y-old female patient with above medical diseases has recurrent mental status changes and confusional episodes. She was here in [facility] about 2 weeks ago due to mental status changes. She was in dialysis and was noted to have mental status change again and confusion to be brought for hospitalization. Her HCT showed no acute findings except cerebral atrophy. No focalized sensory or motor deficits. PAST MEDICAL HISTORY: Please see above. PAST SURGERY HISTORY: Appendectomy Cholecystectomy Abdominal surgery Back surgery. ALLERGY: Reviewed. MEDICATIONS: Refer to [facility] FAMILY HISTORY: HTN CAD SOCIAL HISTORY: Lives alone at home with help from care aid. Denies current smoking, drinking, and illicit drug use. She drinks wine heavily almost on a daily basis for about 40 years. REVIEW OF SYSTEMS: Constitutional: Mild malnutrition. Head: No recent traumatic brain or head injury. Skin: No edema, or rash. Ear: No infection. Eyes: No vision loss or color blindness. Nose: No bleeding or purulent discharges. Hearing: Hearing decrease. Neck: No injury. Breast: No history of cancer, masses,or discharges. Cardiac: HTN, HLD. Pulmonary: OPD. GI: No GI ulcer, GI bleeding. Urinary/genital: UTI. Endocrinologic: No cousin face, craniofacial dysmorphism, polydactyly. Skeletomuscular: Generalized weakness. Neurological: see HP. Psychiatric: Denies drug use/abuse. Otherwise, not [id number] review of systems. PHYSICAL EXAMINATION: General appearance is in subacute distress. HEENT: Normocephalic and nontraumatic. Eyes, nose, ears, and throat are unremarkable. Neck is supple. No lymphadenopathy. No bruits are heard over the carotid artery. No crepitus. Cardiovascular: S1, S2, regular rate and rhythm. Pulmonary: Clear to auscultation bilaterally. Abdomen: Bowel sounds are positive. Extremities: No rash, lesions, or edema. No restriction of range of motion NEUROLOGICAL EXAMINATION: Awake. Oriented to place and person but not to time. PERRL. EOMI. CN: no focal findings. Muscle tone: within normal. Muscle strength: 4 DTR: 2- Plantar reflex: Neutral response bilaterally Gait: not examined in bed. Sensory exam: no abnormal findings. No acute cerebellar signs elicited. F-T-N test not performed due to not follow commands. Current Medications Current Medications Current Medications Naloxone HCl (Narcan) 0.4 mg 1X ONCE IV Last administered on 06/25/16 15:29; Start 06/25/16 at 15:15; Stop 06/25/16 at 15:21; Status DC Ondansetron HCl (Zofran) 4 mg PRN Q8HRS PRN IV NAUSEA/VOMITING Last administered on 06/25/16 15:29; Start 06/25/16 at 15:15; Stop 06/26/16 at 15:14 Morphine Sulfate 2 mg PRN Q2HR PRN IV PAIN; Start 06/25/16 at 15:15; Stop 06/26 at 15:14 Acetaminophen (Tylenol) 650 mg PRN Q4HRS PRN PO FEVER; Start 06/25/16 at 15:15 ; Stop 06/26/16 at 15:14 Levofloxacin/ Dextrose (Levaquin Per Pharmacy) 1 each PRN DAILY PRN [facility] SEE COMMENTS; Start 06/25/16 at 15:30 Piperacillin Sod/ Tazobactam Sod (Zosyn Per Pharmacy) 1 each PRN DAILY PRN [facility] SEE COMMENTS; Start 06/25/16 at 15:30 Vancomycin HCl 1 each 1 each PRN DAILY PRN [facility] SEE COMMENTS; Start 06/25/16 at 15:30 Levofloxacin/ Dextrose 150 ml @ 100 mls/hr 1X ONCE IV ; Start 06/25/16 at 15: 45; Stop 06/25/16 at 17:14 Vancomycin HCl 1.25 gm/Sodium Chloride 250 ml @ 166.667 mls/hr 1X ONCE IV ; Start 06/25/16 at 15:45; Stop 06/25/16 at 17:14 Piperacillin Sod/ Tazobactam Sod/ Sodium Chloride (Zosyn/Iv Sodium Chloride 0.9 % 50ml) 50 ml @ 100 mls/hr 1X ONCE IV Last administered on 06/25/16 16:01; Start 06/25/16 at 15:45; Stop 06/25/16 at 16:14; Status DC Active Scripts Active Pantoprazole Sodium 40 Mg Tablet.dr 40 Mg PO DAILYAC 30 Days Reported Lortab 5-325 mg Tablet (Hydrocodone/Acetaminophen) 1 Each Tablet 1 Tab PO PRN Q6HRS PRN Neomycin Sulfate 500 Mg Tablet 1 Tab PO BID Spironolactone 50 Mg Tablet 1 Tab PO DAILY Allergies Allergies: Coded Allergies: No Known Drug Allergies (Unverified , 03/13/13) Vitals VITALS Vital Signs Date Time Temp Pulse Resp B/P Pulse Ox O2 Delivery O2 Flow Rate FiO2 06/25/16 13:40 98.4 108 18 137/63 91 Room Air 98.4 Labs Labs Laboratory Tests Test 06/25/16 13:45 06/25/16 14:30 White Blood Count 9.5x10^3/uL (4.0-11.0) Red Blood Count 2.94x10^6/uL (3.50-5.40) Hemoglobin 10.2g/dL (12.0-15.5) Hematocrit 29.7% (36.0-47.0) Mean Corpuscular Volume 101fL (79-100) Mean Corpuscular Hemoglobin 35pg (25-35) Mean Corpuscular Hemoglobin Concent 34g/dL (31-37) Red Cell Distribution Width 22.7% (11.5-14.5) Platelet Count 109x10^3/uL (140-400) Neutrophils (%) (Auto) 74% (31-73) Lymphocytes (%) (Auto) 9% (24-48) Monocytes (%) (Auto) 16% (0-9) Eosinophils (%) (Auto) 1% (0-3) Basophils (%) (Auto) 0% (0-3) Neutrophils # (Auto) 7.0x10^3uL (1.8-7.7) Lymphocytes # (Auto) 0.8x10^3/uL (1.0-4.8) Monocytes # (Auto) 1.6x10^3/uL (0.0-1.1) Eosinophils # (Auto) 0.1x10^3/uL (0.0-0.7) Basophils # (Auto) 0.0x10^3/uL (0.0-0.2) Platelet Estimate Decreased (ADEQUATE) Poikilocytosis Slight Anisocytosis Mod Target Cells Present David Cells Present Prothrombin Time 19.1SEC (11.7-14.0) Prothromb Time International Ratio 1.7 (0.8-1.1) Activated Partial Thromboplast Time 62SEC (24-38) Sodium Level 139mmol/L (136-145) Potassium Level 4.6mmol/L (3.5-5.1) Chloride Level 102mmol/L (98-107) Carbon Dioxide Level 23mmol/L (21-32) Anion Gap 14 (6-14) Blood Urea Nitrogen 7mg/dL (7-20) Creatinine 2.1mg/dL (0.6-1.0) Estimated GFR (Cockcroft-Gault) 23.2 BUN/Creatinine Ratio 3 (6-20) Glucose Level 84mg/dL (70-99) Calcium Level 9.1mg/dL (8.5-10.1) Total Bilirubin 3.2mg/dL (0.2-1.0) Aspartate Amino Transf (AST/SGOT) 104U/L (15-37) Alanine Aminotransferase (ALT/SGPT) 29U/L (14-59) Alkaline Phosphatase 164U/L (46-116) Troponin I Quantitative < 0.017ng/mL (0.000-0.055) PK-Cnl-U-Type Natriuretic Peptide 8872pg/mL (0-124) Total Protein 7.1g/dL (6.4-8.2) Albumin 2.3g/dL (3.4-5.0) Albumin/Globulin Ratio 0.5 (1.0-1.7) Thyroid Stimulating Hormone (TSH) 2.526uIU/mL (0.358-3.74) Salicylates Level < 2.8mg/dL (2.8-20.0) Salicylate Last Dose Date Unk Salicylate Last Dose Time Unk Acetaminophen Level < 10mcg/ml (10-30) Acetaminophen Last Dose Date Unk Acetaminophen Last Dose Time Unk Ethyl Alcohol Level < 10mg/dL (0-10) Urine Collection Type U cath Urine Color Red Urine Clarity Cloudy Urine pH 5.5 Urine Specific [place] 1.020 Urine Protein 100mg/dL (NEG-TRACE) Urine Glucose (UA) Negativemg/dL (NEG) Urine Ketones (Stick) Tracemg/dL (NEG) Urine Blood Large (NEG) Urine Nitrite Negative (NEG) Urine Bilirubin Moderate (NEG) Urine Urobilinogen Dipstick 0.2mg/dL (0.2 mg/dL) Urine Leukocyte Esterase Small (NEG) Urine RBC >40/HPF (0-2) Urine WBC 5-10/HPF (0-4) Urine Squamous Epithelial Cells Few/LPF Urine Renal Epithelial Cells Few/LPF Urine Bacteria Few/HPF (0-FEW) Urine Hyaline Casts Few/HPF Urine Granular Casts Occasional/HPF Urine Opiates Screen Pos (NEG) Urine Methadone Screen Neg (NEG) Urine Barbiturates Neg (NEG) Urine Phencyclidine Screen Neg (NEG) Urine Amphetamine/Methamphetamine Neg (NEG) Urine Benzodiazepines Screen Neg (NEG) Urine Cocaine Screen Neg (NEG) Urine Cannabinoids Screen Neg (NEG) Urine Ethyl Alcohol Neg (NEG) Laboratory Tests Test 06/25/16 13:45 06/25/16 14:30 White Blood Count 9.5x10^3/uL (4.0-11.0) Red Blood Count 2.94x10^6/uL (3.50-5.40) Hemoglobin 10.2g/dL (12.0-15.5) Hematocrit 29.7% (36.0-47.0) Mean Corpuscular Volume 101fL (79-100) Mean Corpuscular Hemoglobin 35pg (25-35) Mean Corpuscular Hemoglobin Concent 34g/dL (31-37) Red Cell Distribution Width 22.7% (11.5-14.5) Platelet Count 109x10^3/uL (140-400) Neutrophils (%) (Auto) 74% (31-73) Lymphocytes (%) (Auto) 9% (24-48) Monocytes (%) (Auto) 16% (0-9) Eosinophils (%) (Auto) 1% (0-3) Basophils (%) (Auto) 0% (0-3) Neutrophils # (Auto) 7.0x10^3uL (1.8-7.7) Lymphocytes # (Auto) 0.8x10^3/uL (1.0-4.8) Monocytes # (Auto) 1.6x10^3/uL (0.0-1.1) Eosinophils # (Auto) 0.1x10^3/uL (0.0-0.7) Basophils # (Auto) 0.0x10^3/uL (0.0-0.2) Platelet Estimate Decreased (ADEQUATE) Poikilocytosis Slight Anisocytosis Mod Target Cells Present David Cells Present Prothrombin Time 19.1SEC (11.7-14.0) Prothromb Time International Ratio 1.7 (0.8-1.1) Activated Partial Thromboplast Time 62SEC (24-38) Sodium Level 139mmol/L (136-145) Potassium Level 4.6mmol/L (3.5-5.1) Chloride Level 102mmol/L (98-107) Carbon Dioxide Level 23mmol/L (21-32) Anion Gap 14 (6-14) Blood Urea Nitrogen 7mg/dL (7-20) Creatinine 2.1mg/dL (0.6-1.0) Estimated GFR (Cockcroft-Gault) 23.2 BUN/Creatinine Ratio 3 (6-20) Glucose Level 84mg/dL (70-99) Calcium Level 9.1mg/dL (8.5-10.1) Total Bilirubin 3.2mg/dL (0.2-1.0) Aspartate Amino Transf (AST/SGOT) 104U/L (15-37) Alanine Aminotransferase (ALT/SGPT) 29U/L (14-59) Alkaline Phosphatase 164U/L (46-116) Troponin I Quantitative < 0.017ng/mL (0.000-0.055) QV-Quc-Z-Type Natriuretic Peptide 8872pg/mL (0-124) Total Protein 7.1g/dL (6.4-8.2) Albumin 2.3g/dL (3.4-5.0) Albumin/Globulin Ratio 0.5 (1.0-1.7) Thyroid Stimulating Hormone (TSH) 2.526uIU/mL (0.358-3.74) Salicylates Level < 2.8mg/dL (2.8-20.0) Salicylate Last Dose Date Unk Salicylate Last Dose Time Unk Acetaminophen Level < 10mcg/ml (10-30) Acetaminophen Last Dose Date Unk Acetaminophen Last Dose Time Unk Ethyl Alcohol Level < 10mg/dL (0-10) Urine Collection Type U cath Urine Color Red Urine Clarity Cloudy Urine pH 5.5 Urine Specific [place] 1.020 Urine Protein 100mg/dL (NEG-TRACE) Urine Glucose (UA) Negativemg/dL (NEG) Urine Ketones (Stick) Tracemg/dL (NEG) Urine Blood Large (NEG) Urine Nitrite Negative (NEG) Urine Bilirubin Moderate (NEG) Urine Urobilinogen Dipstick 0.2mg/dL (0.2 mg/dL) Urine Leukocyte Esterase Small (NEG) Urine RBC >40/HPF (0-2) Urine WBC 5-10/HPF (0-4) Urine Squamous Epithelial Cells Few/LPF Urine Renal Epithelial Cells Few/LPF Urine Bacteria Few/HPF (0-FEW) Urine Hyaline Casts Few/HPF Urine Granular Casts Occasional/HPF Urine Opiates Screen Pos (NEG) Urine Methadone Screen Neg (NEG) Urine Barbiturates Neg (NEG) Urine Phencyclidine Screen Neg (NEG) Urine Amphetamine/Methamphetamine Neg (NEG) Urine Benzodiazepines Screen Neg (NEG) Urine Cocaine Screen Neg (NEG) Urine Cannabinoids Screen Neg (NEG) Urine Ethyl Alcohol Neg (NEG) EMILY COELLO MD Jun 25, 2016 17:06
[2016-06-25] MEDS: VANCOMYCIN PER PHARMACY MC PRN (17:47)
[2016-06-25] MEDS: ASPIRIN CHEWABLE 81 MG TABLET. PO SCH (18:07)
[2016-06-25 19:50] VITALS: BP 105/63
[2016-06-25] MEDS: PIPERACILLIN/TAZOBACTAM 2.25 GM in IV NORMAL SALINE 50ML 50 ML IV SCH (23:17)
[2016-06-25 23:19] VITALS: BP 116/63
[2016-06-26] MEDS: PIPERACILLIN/TAZOBACTAM 2.25 GM in IV NORMAL SALINE 50ML 50 ML IV SCH ×3 (06:01→20:34)
[2016-06-26 07:12] LABS: CHOLESTEROL/HDL RATIO 18.6
[2016-06-26] MEDS: ASPIRIN CHEWABLE 81 MG TABLET. PO SCH (07:39)
[2016-06-26 07:40] VITALS: BP 109/60
--- NOTE | 2016-06-26 08:27 | PDOC ---
Provider Note Provider Note [id number] CANELO CHAVEZ MD Jun 26, 2016 08:27
[2016-06-26] MEDS ORDERED: PANTOPRAZOLE 40 MG TABLET.DR. PO SCH (09:00)
--- NOTE | 2016-06-26 09:04 | RAD ---
Indication change in mental status. Noncontrast images of the head were obtained. Comparison is made to an examination one day earlier. The calvarium appears unremarkable. The visualized paranasal sinuses appear normal. There is no subdural or epidural hematoma. Chronic changes, described on the examination yesterday, are reproduced. There is no hemorrhage. An acute finding or significant change when compared to yesterday's study is not seen. IMPRESSION: Chronic changes. No acute finding seen or significant change compared to the examination one day earlier PQRS Compliance Statement: One or more of the following individualized dose reduction techniques were utilized for this examination: 1. Automated exposure control 2. Adjustment of the mA and/or kV according to patient size 3. Use of iterative reconstruction technique
[2016-06-26 10:35] VITALS: BP 118/57
--- NOTE | 2016-06-26 11:32 | HP ---
ADMIT DATE: 06/25/2016 CHIEF COMPLAINT: Confusion. HISTORY OF PRESENT ILLNESS: A 71-year-old white female with history of alcoholic liver disease, apparently, has been recently started on dialysis per Dr. Ortiz, and was doing dialysis this week when she became confused and weak and general malaise. CT scan in the ER was negative and no fever has been present since she was started on antibiotics for presumed hospital-acquired pneumonia, though, she has not been coughing or having any notable fever. She was in the hospital just recently for what appeared to be some degree of mild hemolysis, perhaps, related to underlying liver disease, but no clear etiology. She is not able to provide a good history at this time. PAST MEDICAL HISTORY: Well documented in the old records, no allergies are known. SOCIAL HISTORY: Quit smoking some months ago, quit drinking some months ago as well, lives alone, apparently. FAMILY HISTORY: Unknown. REVIEW OF SYSTEMS: No other complaints. OBJECTIVE: ENT: Minimal scleral icterus is noted. The teeth have some gingivitis and caries, but no active lesions are seen. NECK: No carotid bruits, nodes, thyroid enlargement, or masses. LUNGS: Decreased breath sounds and crackles at both bases. CARDIOVASCULAR: Grade 3 systolic murmur. Regular rate. No irregular beat or murmur. ABDOMEN: Mildly protuberant, liver edge palpable. No masses are felt. EXTREMITIES: Decreased pedal pulses, 2+ edema in lower feet to lower legs, 1+ clubbing at the nail beds. NEUROLOGIC: Generally, physiologic and nonfocal. Gait was not tested. No tremors were seen. Mental status is a little spacey. ASSESSMENT: Multifactorial problems including history of alcoholic liver disease, recent renal disease, started dialysis for unknown etiology and then weakness during dialysis. She has thrombocytopenia presumably from cirrhosis, hypersplenism, and systolic murmur that I could not find out by the echocardiogram report. PLAN: Echo and further observation and consultants ____ patient better. CANELO CHAVEZ MD DR: LILLIAN/gerda JOB#: [id number] / [id number]
[2016-06-26] MEDS: IPRATRPIUM/ALBUTEROL 0.5/2.5MG 3 ML NEBU. NEB SCH ×3 (11:43→20:03)
--- NOTE | 2016-06-26 12:21 | PDOC2 ---
CONSULT Date of Consult Date of Consult DATE: 06/26/16 TIME: 12:17 Reason for Consult Reason for Consult: ESRD Referring Physician Referring Physician: KATHY Identification/Chief Complaint Chief Complaint CONFUSION Source Source: Chart review History of Present Illness Reason for Visit: THIS IS A 71 YR OLD ADMITTED WITH CONFUSION. SHE HAS KVNG-ATN FROM HER LAST HOSPITAL ADMIT. 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 SHE HAS BEEN RECEIVING OP HD FOR HER KVNG. SHE REMAINS OLIGURIC. NO HX OF CKD Past Medical History Cardiovascular: HTN, Hyperlipidemia GI: GERD, Other Hepatobiliary: Cirrhosis Renal/: Acute renal failure Past Surgical History Past Surgical History: Appendectomy, Cholecystectomy Family History Family History: Other Social History ALCOHOL: other Drugs: None Current Problem List Problem List Problems Medical Problems: (1) Altered mental state Status: Acute (2) Healthcare associated bacterial pneumonia Status: Acute Current Medications Current Medications Current Medications Naloxone HCl (Narcan) 0.4 mg 1X ONCE IV Last administered on 06/25/16 15:29; Start 06/25/16 at 15:15; Stop 06/25/16 at 15:21; Status DC Ondansetron HCl (Zofran) 4 mg PRN Q8HRS PRN IV NAUSEA/VOMITING Last administered on 06/25/16 15:29; Start 06/25/16 at 15:15; Stop 06/26/16 at 15:14 Morphine Sulfate 2 mg PRN Q2HR PRN IV PAIN; Start 06/25/16 at 15:15; Stop 06/26 at 15:14 Acetaminophen (Tylenol) 650 mg PRN Q4HRS PRN PO FEVER; Start 06/25/16 at 15:15 ; Stop 06/26/16 at 15:14 Levofloxacin/ Dextrose (Levaquin Per Pharmacy) 1 each PRN DAILY PRN MC SEE COMMENTS; Start 06/25/16 at 15:30 Piperacillin Sod/ Tazobactam Sod (Zosyn Per Pharmacy) 1 each PRN DAILY PRN MC SEE COMMENTS; Start 06/25/16 at 15:30 Vancomycin HCl 1 each 1 each PRN DAILY PRN MC SEE COMMENTS Last administered on 06/25/16 17:47; Start 06/25/16 at 15:30 Levofloxacin/ Dextrose 150 ml @ 100 mls/hr 1X ONCE IV Last administered on 18:29; Start 06/25/16 at 15:45; Stop 06/25/16 at 17:14; Status DC Vancomycin HCl 1.25 gm/Sodium Chloride 250 ml @ 166.667 mls/hr 1X ONCE IV Last administered on 06/25/16 16:58; Start 06/25/16 at 15:45; Stop 06/25/16 at 17:14; Status DC Piperacillin Sod/ Tazobactam Sod/ Sodium Chloride (Zosyn/Iv Sodium Chloride 0.9 % 50ml) 50 ml @ 100 mls/hr 1X ONCE IV Last administered on 06/25/16 16:01; Start 06/25/16 at 15:45; Stop 06/25/16 at 16:14; Status DC Aspirin 81 mg 81 mg DAILYWBKFT PO Last administered on 06/26/16 07:39; Start 06/25/16 at 17:30 Levofloxacin/ Dextrose 100 ml @ 100 mls/hr Q48H IV ; Start 06/27/16 at 09:00 Piperacillin Sod/ Tazobactam Sod/ Sodium Chloride (Zosyn/Iv Sodium Chloride 0.9 % 50ml) 50 ml @ 100 mls/hr Q8HRS IV Last administered on 06/26/16 06:01; Start 06/25/16 at 23:00 Vancomycin HCl 1 each 1X ONCE MC ; Start 06/27/16 at 06:00; Stop 06/27/16 at 06: 01 Acetaminophen/ Hydrocodone Bitart (Lortab 5/325) 1 tab PRN Q6HRS PRN PO PAIN MILD TO MOD; Start 06/26/16 at 08:15 Pantoprazole Sodium (Protonix) 40 mg DAILYAC PO Last administered on 06/26/16 10:17; Start 06/26/16 at 09:00 Albuterol/ Ipratropium (Duoneb) 3 ml RTQID NEB Last administered on 06/26/16 11:43; Start 06/26/16 at 12:00 Simvastatin (Zocor) 10 mg QHS PO ; Start 06/26/16 at 21:00 Active Scripts Active Pantoprazole Sodium 40 Mg Tablet.dr 40 Mg PO DAILYAC 30 Days Reported Lortab 5-325 mg Tablet (Hydrocodone/Acetaminophen) 1 Each Tablet 1 Tab PO PRN Q6HRS PRN Neomycin Sulfate 500 Mg Tablet 1 Tab PO BID Spironolactone 50 Mg Tablet 1 Tab PO DAILY Allergies Allergies: Coded Allergies: No Known Drug Allergies (Unverified , 03/13/13) ROS Review of System CONFUSED Physical Exam General: Cooperative HEENT: Atraumatic, PERRLA, Other (SOME SCLERAL ICTERUS) Lungs: Clear to auscultation Heart: Regular rate Abdomen: Normal bowel sounds, Soft Neuro: Other (CONFUSED) Psych/Mental Status: Other (CONFUSED) Vitals VITALS Vital Signs Date Time Temp Pulse Resp B/P Pulse Ox O2 Delivery O2 Flow Rate FiO2 06/26/16 11:43 88 Room Air 06/26/16 10:35 97.6 89 17 118/57 97.6 Labs Labs Laboratory Tests Test 06/25/16 13:45 06/25/16 14:30 06/25/16 17:05 06/26/16 06:10 White Blood Count 9.5x10^3/uL (4.0-11.0) Red Blood Count 2.94x10^6/uL (3.50-5.40) Hemoglobin 10.2g/dL (12.0-15.5) Hematocrit 29.7% (36.0-47.0) Mean Corpuscular Volume 101fL (79-100) Mean Corpuscular Hemoglobin 35pg (25-35) Mean Corpuscular Hemoglobin Concent 34g/dL (31-37) Red Cell Distribution Width 22.7% (11.5-14.5) Platelet Count 109x10^3/uL (140-400) Neutrophils (%) (Auto) 74% (31-73) Lymphocytes (%) (Auto) 9% (24-48) Monocytes (%) (Auto) 16% (0-9) Eosinophils (%) (Auto) 1% (0-3) Basophils (%) (Auto) 0% (0-3) Neutrophils # (Auto) 7.0x10^3uL (1.8-7.7) Lymphocytes # (Auto) 0.8x10^3/uL (1.0-4.8) Monocytes # (Auto) 1.6x10^3/uL (0.0-1.1) Eosinophils # (Auto) 0.1x10^3/uL (0.0-0.7) Basophils # (Auto) 0.0x10^3/uL (0.0-0.2) Platelet Estimate Decreased (ADEQUATE) Poikilocytosis Slight Anisocytosis Mod Target Cells Present [place] Cells Present Prothrombin Time 19.1SEC (11.7-14.0) Prothromb Time International Ratio 1.7 (0.8-1.1) Activated Partial Thromboplast Time 62SEC (24-38) Sodium Level 139mmol/L (136-145) Potassium Level 4.6mmol/L (3.5-5.1) Chloride Level 102mmol/L (98-107) Carbon Dioxide Level 23mmol/L (21-32) Anion Gap 14 (6-14) Blood Urea Nitrogen 7mg/dL (7-20) Creatinine 2.1mg/dL (0.6-1.0) Estimated GFR (Cockcroft-Gault) 23.2 BUN/Creatinine Ratio 3 (6-20) Glucose Level 84mg/dL (70-99) Calcium Level 9.1mg/dL (8.5-10.1) Total Bilirubin 3.2mg/dL (0.2-1.0) Aspartate Amino Transf (AST/SGOT) 104U/L (15-37) Alanine Aminotransferase (ALT/SGPT) 29U/L (14-59) Alkaline Phosphatase 164U/L (46-116) Troponin I Quantitative < 0.017ng/mL (0.000-0.055) HX-Vji-N-Type Natriuretic Peptide 8872pg/mL (0-124) Total Protein 7.1g/dL (6.4-8.2) Albumin 2.3g/dL (3.4-5.0) Albumin/Globulin Ratio 0.5 (1.0-1.7) Thyroid Stimulating Hormone (TSH) 2.526uIU/mL (0.358-3.74) Salicylates Level < 2.8mg/dL (2.8-20.0) Salicylate Last Dose Date Unk Salicylate Last Dose Time Unk Acetaminophen Level < 10mcg/ml (10-30) Acetaminophen Last Dose Date Unk Acetaminophen Last Dose Time Unk Ethyl Alcohol Level < 10mg/dL (0-10) Urine Collection Type U cath Urine Color Red Urine Clarity Cloudy Urine pH 5.5 Urine Specific [place] 1.020 Urine Protein 100mg/dL (NEG-TRACE) Urine Glucose (UA) Negativemg/dL (NEG) Urine Ketones (Stick) Tracemg/dL (NEG) Urine Blood Large (NEG) Urine Nitrite Negative (NEG) Urine Bilirubin Moderate (NEG) Urine Urobilinogen Dipstick 0.2mg/dL (0.2 mg/dL) Urine Leukocyte Esterase Small (NEG) Urine RBC >40/HPF (0-2) Urine WBC 5-10/HPF (0-4) Urine Squamous Epithelial Cells Few/LPF Urine Renal Epithelial Cells Few/LPF Urine Bacteria Few/HPF (0-FEW) Urine Hyaline Casts Few/HPF Urine Granular Casts Occasional/HPF Urine Opiates Screen Pos (NEG) Urine Methadone Screen Neg (NEG) Urine Barbiturates Neg (NEG) Urine Phencyclidine Screen Neg (NEG) Urine Amphetamine/Methamphetamine Neg (NEG) Urine Benzodiazepines Screen Neg (NEG) Urine Cocaine Screen Neg (NEG) Urine Cannabinoids Screen Neg (NEG) Urine Ethyl Alcohol Neg (NEG) Ammonia 13mcmol/L (11-34) Creatine Kinase 141U/L (26-192) Vitamin B12 Level > 2000pg/mL (247-911) Triglycerides Level 146mg/dL (0-150) Cholesterol Level 186mg/dL (0-200) LDL Cholesterol, Calculated 147mg/dL (0-100) VLDL Cholesterol, Calculated 29mg/dL (0-40) HDL Cholesterol 10mg/dL (40-60) Cholesterol/HDL Ratio 18.6 Random Vancomycin Level 19.7mcg/mL Laboratory Tests Test 06/25/16 13:45 06/25/16 14:30 06/25/16 17:05 06/26/16 06:10 White Blood Count 9.5x10^3/uL (4.0-11.0) Red Blood Count 2.94x10^6/uL (3.50-5.40) Hemoglobin 10.2g/dL (12.0-15.5) Hematocrit 29.7% (36.0-47.0) Mean Corpuscular Volume 101fL (79-100) Mean Corpuscular Hemoglobin 35pg (25-35) Mean Corpuscular Hemoglobin Concent 34g/dL (31-37) Red Cell Distribution Width 22.7% (11.5-14.5) Platelet Count 109x10^3/uL (140-400) Neutrophils (%) (Auto) 74% (31-73) Lymphocytes (%) (Auto) 9% (24-48) Monocytes (%) (Auto) 16% (0-9) Eosinophils (%) (Auto) 1% (0-3) Basophils (%) (Auto) 0% (0-3) Neutrophils # (Auto) 7.0x10^3uL (1.8-7.7) Lymphocytes # (Auto) 0.8x10^3/uL (1.0-4.8) Monocytes # (Auto) 1.6x10^3/uL (0.0-1.1) Eosinophils # (Auto) 0.1x10^3/uL (0.0-0.7) Basophils # (Auto) 0.0x10^3/uL (0.0-0.2) Platelet Estimate Decreased (ADEQUATE) Poikilocytosis Slight Anisocytosis Mod Target Cells Present [place] Cells Present Prothrombin Time 19.1SEC (11.7-14.0) Prothromb Time International Ratio 1.7 (0.8-1.1) Activated Partial Thromboplast Time 62SEC (24-38) Sodium Level 139mmol/L (136-145) Potassium Level 4.6mmol/L (3.5-5.1) Chloride Level 102mmol/L (98-107) Carbon Dioxide Level 23mmol/L (21-32) Anion Gap 14 (6-14) Blood Urea Nitrogen 7mg/dL (7-20) Creatinine 2.1mg/dL (0.6-1.0) Estimated GFR (Cockcroft-Gault) 23.2 BUN/Creatinine Ratio 3 (6-20) Glucose Level 84mg/dL (70-99) Calcium Level 9.1mg/dL (8.5-10.1) Total Bilirubin 3.2mg/dL (0.2-1.0) Aspartate Amino Transf (AST/SGOT) 104U/L (15-37) Alanine Aminotransferase (ALT/SGPT) 29U/L (14-59) Alkaline Phosphatase 164U/L (46-116) Troponin I Quantitative < 0.017ng/mL (0.000-0.055) YA-Rlz-Y-Type Natriuretic Peptide 8872pg/mL (0-124) Total Protein 7.1g/dL (6.4-8.2) Albumin 2.3g/dL (3.4-5.0) Albumin/Globulin Ratio 0.5 (1.0-1.7) Thyroid Stimulating Hormone (TSH) 2.526uIU/mL (0.358-3.74) Salicylates Level < 2.8mg/dL (2.8-20.0) Salicylate Last Dose Date Unk Salicylate Last Dose Time Unk Acetaminophen Level < 10mcg/ml (10-30) Acetaminophen Last Dose Date Unk Acetaminophen Last Dose Time Unk Ethyl Alcohol Level < 10mg/dL (0-10) Urine Collection Type U cath Urine Color Red Urine Clarity Cloudy Urine pH 5.5 Urine Specific [place] 1.020 Urine Protein 100mg/dL (NEG-TRACE) Urine Glucose (UA) Negativemg/dL (NEG) Urine Ketones (Stick) Tracemg/dL (NEG) Urine Blood Large (NEG) Urine Nitrite Negative (NEG) Urine Bilirubin Moderate (NEG) Urine Urobilinogen Dipstick 0.2mg/dL (0.2 mg/dL) Urine Leukocyte Esterase Small (NEG) Urine RBC >40/HPF (0-2) Urine WBC 5-10/HPF (0-4) Urine Squamous Epithelial Cells Few/LPF Urine Renal Epithelial Cells Few/LPF Urine Bacteria Few/HPF (0-FEW) Urine Hyaline Casts Few/HPF Urine Granular Casts Occasional/HPF Urine Opiates Screen Pos (NEG) Urine Methadone Screen Neg (NEG) Urine Barbiturates Neg (NEG) Urine Phencyclidine Screen Neg (NEG) Urine Amphetamine/Methamphetamine Neg (NEG) Urine Benzodiazepines Screen Neg (NEG) Urine Cocaine Screen Neg (NEG) Urine Cannabinoids Screen Neg (NEG) Urine Ethyl Alcohol Neg (NEG) Ammonia 13mcmol/L (11-34) Creatine Kinase 141U/L (26-192) Vitamin B12 Level > 2000pg/mL (247-911) Triglycerides Level 146mg/dL (0-150) Cholesterol Level 186mg/dL (0-200) LDL Cholesterol, Calculated 147mg/dL (0-100) VLDL Cholesterol, Calculated 29mg/dL (0-40) HDL Cholesterol 10mg/dL (40-60) Cholesterol/HDL Ratio 18.6 Random Vancomycin Level 19.7mcg/mL Assessment/Plan Assessment/Plan IMP MET ENCEPHALOPATHY LIVER CIRRHOSIS LIVER FAILURE ANEMIA KVNG-NOT RECOVERED SINCE EARLY THIS MONTH. PLAN HD TTS WHILE SHE WILL CONT WITH OP HD TTS ARANESP WILL FOLLOW WILLIAM JORGE MD Jun 26, 2016 12:21
[2016-06-26] MEDS: MORPHINE SULFATE 2 MG/ML DISP.SYRIN. IV PRN ×3 (13:17→21:56)
[2016-06-26] MEDS: ONDANSETRON PF 4 MG/2 ML VIAL. IV PRN (13:17)
[2016-06-26] MEDS: HYDROCODONE/APAP 5/325MG TABLET. PO PRN ×2 (13:59→20:34)
[2016-06-26 15:00] VITALS: BP 99/56
--- NOTE | 2016-06-26 15:40 | PDOC ---
Subjective: Subjective: Readmitted from dialysis yesterday w/ AMS. Worsening abd distention since discharge. Is very uncomfortable, causing SOA. Stooling. No n/v. Started on atbx for presumed pneumonia. Objective: Vital Signs: Vital Signs Date Time Temp Pulse Resp B/P Pulse Ox O2 Delivery O2 Flow Rate FiO2 06/26/16 15:19 18 88 Room Air 2.0 06/26/16 15:00 97.5 96 99/56 97.5 Labs: Laboratory Tests Test 06/25/16 17:05 06/26/16 06:10 Ammonia 13mcmol/L Creatine Kinase 141U/L Vitamin B12 Level > 2000pg/mL Triglycerides Level 146mg/dL Cholesterol Level 186mg/dL LDL Cholesterol, Calculated 147mg/dL VLDL Cholesterol, Calculated 29mg/dL HDL Cholesterol 10mg/dL Cholesterol/HDL Ratio 18.6 Random Vancomycin Level 19.7mcg/mL Imaging: CXR 06/25/16 IMPRESSION: Stable small to moderate left and small right pleural effusions and left greater than right lower lobe atelectasis or infiltrate. Head CT 06/26/16 IMPRESSION: Chronic changes. No acute finding seen or significant change compared to the examination one day earlier. Echocardiogram 06/26/16 PENDING PE: GEN: NAD, up to chair HEENT: Atraumatic, PERRLA LUNGS: poor effort/decreased anteriorly w/ nasal cannula HEART: S1S2 ABD: +distended/uncomfortable +BS EXTREMITY/SKIN: BLE wrapped in dressing NEURO/PSYCH: appropriate although admits confusion A/P: Alcoholic cirrhosis, ascites, encephalopathy -CT earlier this month w/ hepatic cirrhosis with mesenteric congestion and a moderate volume of ascites (similar 01/2016) -Doppler 05/2016 unrevealing, AFP WNL -previously on Xifaxan BID and lactulose ---> not restarted -ammonia WNL today Anemia/thrombocytopenia -heme/onc following, s/p bone marrow bx 06/03, s/p renal bx 06/09 (?cannot view complete report) -Hgb improved since discharge -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 Jackson. Will check abd US re: ascites w/ possible IR consult for paracentesis. Difficult w/ KVNG on HD. ?pulm consult IVY BETH Jun 26, 2016 15:40
--- NOTE | 2016-06-26 16:22 | CARD ---
APPROVED REPORT EXAM: Two-dimensional and M-mode echocardiogram with Doppler and color Doppler. Other Information Quality : AverageHR: 92bpm INDICATION Murmur 2D DIMENSIONS RVDd3.3 (2.9-3.5cm)Left Atrium(2D)4.6 (1.6-4.0cm) IVSd0.9 (0.7-1.1cm)Aortic Root(2D)3.0 (2.0-3.7cm) LVDd4.0 (3.9-5.9cm)LVOT Diameter2.1 (1.8-2.4cm) PWd0.9 (0.7-1.1cm)LVDs2.3 (2.5-4.0cm) FS (%) 40.7 %SV49.3 ml LVEF(%)65.0 (>50%) Aortic Valve AoV Peak Titus.207.4cm/sAoV VTI38.5cm AO Peak GR.17.2mmHgLVOT VTI 27.65cm AO Mean GR.9mmHg Mitral Valve MV E Diulfbqg993.9cm/sMV E Peak Gr.13mmHg MV DECEL [id number] A Hgddtqjy922.7cm/s MV E Mean Gr.7mmHgE/A Ratio0.8 MV A [id number] TDI Lateral E' P. V11.94cm/sMedial E' P. V7.80cm/s E/Lateral E'9.7E/Medial E'14.9 Tricuspid Valve TR P. Dptkaopp387te/sRAP PNFCDJHD9lhHc TR Peak Gr.91krXzRPWI80ovOx LEFT VENTRICLE The left ventricle is normal size. There is normal left ventricular wall thickness. Left ventricle sy stolic function is normal. The Ejection Fraction is 60-65%. There is normal LV segmental wall motion. Transmitral Doppler flow pattern is Grade I-abnormal relaxation pattern. There is no ventricular sep jonathan defect visualized. RIGHT VENTRICLE The right ventricle is normal size. The right ventricular systolic function is normal. ATRIA The left atrium is mildly dilated. The right atrium is mildly dilated. The is an ASD noted in two dif ferent views. AORTIC VALVE The aortic valve is mildly sclerotic. The aortic valve is trileaflet. Doppler and Color Flow revealed no significant aortic regurgitation. There is no significant aortic valvular stenosis. MITRAL VALVE Mitral annular calcification is mild. The mitral valve leaflets are calcified. There is no evidence o f mitral valve prolapse. There is no mitral valve stenosis. Doppler and Color Flow revealed no mitral valve regurgitation noted. TRICUSPID VALVE The tricuspid valve is normal in structure. Doppler and Color Flow revealed mild tricuspid regurgitat ion. There is mild-moderate pulmonary hypertension. The PA pressure was estimated at 40 mmHg. PULMONIC VALVE The pulmonary valve is normal in structure. Doppler and Color Flow revealed mild pulmonic valvular re gurgitation. GREAT VESSELS The aortic root is normal in size. The ascending aorta is normal in size. The IVC is normal in size a nd collapses >50% with inspiration. PERICARDIAL EFFUSION There is large left pleural effusion. There is no evidence of significant pericardial effusion. Critical Notification Critical Value: No <Conclusion> Left ventricle systolic function is normal. The Ejection Fraction is 60-65%. There is normal LV segmental wall motion. Transmitral Doppler flow pattern is Grade I-abnormal relaxation pattern. The left atrium is mildly dilated. Doppler and Color Flow revealed mild tricuspid regurgitation. The PA pressure was estimated at 40 mmHg. There is no evidence of significant pericardial effusion. There is large left pleural effusion.
--- NOTE | 2016-06-26 16:41 | PDOC ---
PROGRESS NOTES Assessment Assessment Metabolic encephalopathy. Confusion. Hepatic cirrhosis, alcohol related. Hyperbilirubinemia. Renal failure on dialysis. UTI CHF? Pulmonary effusion. COPD HTN HLD Alcoholism. RECOMMENDATIONS/PLAN: EEG Add Zocor 10 mg HS. Treat medical diseases. OT/PT. 2 HCTs negative without acute findings. HISTORY OF THE PRESENT ILLNESS: 71-y-old female patient with above medical diseases has recurrent mental status changes and confusional episodes. She was here in [facility] about 2 weeks ago due to mental status changes. She was in dialysis and was noted to have mental status change again and confusion to be brought for hospitalization. Her HCT showed no acute findings except cerebral atrophy. No focalized sensory or motor deficits. PAST MEDICAL HISTORY: Please see above. PAST SURGERY HISTORY: Appendectomy Cholecystectomy Abdominal surgery Back surgery. ALLERGY: Reviewed. MEDICATIONS: Refer to MAR FAMILY HISTORY: HTN CAD SOCIAL HISTORY: Lives alone at home with help from intensive care ambulance paramedic. Denies current smoking, drinking, and illicit drug use. She drinks wine heavily almost on a daily basis for about 40 years. REVIEW OF SYSTEMS: Constitutional: Mild malnutrition. Head: No recent traumatic brain or head injury. Skin: No edema, or rash. Ear: No infection. Eyes: No vision loss or color blindness. Nose: No bleeding or purulent discharges. Hearing: Hearing decrease. Neck: No injury. Breast: No history of cancer, masses,or discharges. Cardiac: HTN, HLD. Pulmonary: OPD. GI: No GI ulcer, GI bleeding. Urinary/genital: UTI. Endocrinologic: No cousin face, craniofacial dysmorphism, polydactyly. Skeletomuscular: Generalized weakness. Neurological: see HP. Psychiatric: Denies drug use/abuse. Otherwise, not -zamrc review of systems. PHYSICAL EXAMINATION: General appearance is in subacute distress. HEENT: Normocephalic and nontraumatic. Eyes, nose, ears, and throat are unremarkable. Neck is supple. No lymphadenopathy. No bruits are heard over the carotid artery. No crepitus. Cardiovascular: S1, S2, regular rate and rhythm. Pulmonary: Clear to auscultation bilaterally. Abdomen: Bowel sounds are positive. Extremities: No rash, lesions, or edema. No restriction of range of motion NEUROLOGICAL EXAMINATION: Awake. Oriented to place and person but not to time. PERRL. EOMI. CN: no focal findings. Muscle tone: within normal. Muscle strength: 4+ DTR: 2 Plantar reflex: Neutral response bilaterally Gait: not examined in bed. Sensory exam: no abnormal findings. No acute cerebellar signs elicited. F-T-N test not performed due to not follow commands. Objective Objective Vital Signs Date Time Temp Pulse Resp B/P Pulse Ox O2 Delivery O2 Flow Rate FiO2 06/26/16 16:30 18 92 Room Air 2.0 06/26/16 15:00 97.5 96 99/56 97.5 Intake and Output 06/26/16 07:00 Intake Total 550 ml Output Total 50 ml Balance 500 ml Intake Oral 400 ml IV Total 150 ml Output Urine Total 50 ml Vitals Signs Vitals VS - Last 72 Hours, by Label Date Time Temp Pulse Resp B/P Pulse Ox O2 Delivery O2 Flow Rate FiO2 06/26/16 16:30 18 92 Room Air 2.0 06/26/16 16:16 92 Nasal Cannula 2.0 06/26/16 15:19 18 88 Room Air 2.0 06/26/16 15:13 20 88 Nasal Cannula 2.0 06/26/16 15:00 97.5 96 16 99/56 89 Nasal Cannula 2.0 97.5 06/26/16 13:59 18 88 Room Air 06/26/16 13:17 18 88 Room Air 06/26/16 11:43 88 Room Air 06/26/16 10:35 97.6 89 17 118/57 92 Room Air 97.6 06/26/16 08:00 Room Air 06/26/16 07:40 97.4 90 16 109/60 92 Room Air 97.4 06/26/16 03:00 100 06/25/16 23:19 97.9 121 16 116/63 91 Room Air 97.9 06/25/16 20:00 Room Air 06/25/16 19:50 98.3 107 16 105/63 93 Room Air 98.3 06/25/16 16:58 107 16 105/70 92 Room Air 06/25/16 16:57 107 16 105/70 92 Room Air 06/25/16 16:40 Room Air 06/25/16 16:00 118 18 136/72 95 Room Air 06/25/16 15:13 96 18 141/78 95 Room Air 06/25/16 14:24 108 18 137/69 93 Room Air 06/25/16 14:11 104 16 139/79 95 Room Air 06/25/16 13:40 98.4 108 18 137/63 91 Room Air 98.4 Laboratory Laboratory Laboratory Tests Test 06/25/16 17:05 06/26/16 06:10 Ammonia 13mcmol/L (11-34) Creatine Kinase 141U/L (26-192) Vitamin B12 Level > 2000pg/mL (247-911) Triglycerides Level 146mg/dL (0-150) Cholesterol Level 186mg/dL (0-200) LDL Cholesterol, Calculated 147mg/dL (0-100) VLDL Cholesterol, Calculated 29mg/dL (0-40) HDL Cholesterol 10mg/dL (40-60) Cholesterol/HDL Ratio 18.6 Random Vancomycin Level 19.7mcg/mL Medication Medications Current Medications Acetaminophen/ Hydrocodone Bitart (Lortab 5/325) 1 tab PRN Q6HRS PRN PO PAIN MILD TO MOD Last administered on 06/26/16 13:59; Start 06/26/16 at 08:15 Albuterol/ Ipratropium (Duoneb) 3 ml RTQID NEB Last administered on 06/26/16 16:14; Start 06/26/16 at 12:00 Aspirin 81 mg 81 mg DAILYWBKFT PO Last administered on 06/26/16 07:39; Start 06/25/16 at 17:30 Darbepoetin Ankit (Aranesp) 60 mcg Fr SQ ; Start 06/26/16 at 21:00 Levofloxacin/ Dextrose 100 ml @ 100 mls/hr Q48H IV ; Start 06/27/16 at 09:00 Pantoprazole Sodium (Protonix) 40 mg DAILYAC PO Last administered on 06/26/16 10:17; Start 06/26/16 at 09:00 Piperacillin Sod/ Tazobactam Sod/ Sodium Chloride (Zosyn/Iv Sodium Chloride 0.9 % 50ml) 50 ml @ 100 mls/hr Q8HRS IV Last administered on 06/26/16 13:22; Start 06/25/16 at 23:00 Rifaximin (Xifaxan) 550 mg Q12HR PO ; Start 06/26/16 at 21:00 Simvastatin (Zocor) 10 mg QHS PO ; Start 06/26/16 at 21:00 Vancomycin HCl 1 each 1X ONCE MC ; Start 06/27/16 at 06:00; Stop 06/27/16 at 06: 01 Comment Review of Relevant I have reviewed the following items amy (where applicable) has been applied. EMILY COELLO MD Jun 26, 2016 16:41
[2016-06-26] MEDS ORDERED: MORPHINE SULFATE 2 MG/ML DISP.SYRIN. IV PRN (18:00)
[2016-06-26] MEDS ORDERED: ONDANSETRON PF 4 MG/2 ML VIAL. IV PRN (18:00)
[2016-06-26 19:20] VITALS: BP 109/58
[2016-06-26] MEDS ORDERED: RIFAXIMIN 550 MG TABLET PO SCH (21:00)
[2016-06-26] MEDS ORDERED: SIMVASTATIN 10 MG TABLET PO SCH (21:00)
[2016-06-26] MEDS ORDERED: DARBEPOETIN ALFA 60 MCG/0.3 ML DISP.SYRIN. SQ SCH (21:00)
[2016-06-26 23:20] VITALS: BP 95/58
[2016-06-27] VITALS (9 sets, daily range): BP systolic 85–136; BP diastolic 41–70
[2016-06-27 00:53] LABS: HCO3 ABG 20 mmol/L (21-28); PCO2 ABG 36 mmHg (35-46); SAT O2 ABG 77 % (92-99)
[2016-06-27 00:54] LABS: PH ABG 7.36 (7.35-7.45); PO2 ABG 44 mmHg (65-108)
[2016-06-27] MEDS ORDERED: VANCOMYCIN RANDOM LEVEL. MC ONE (06:00)
[2016-06-27] MEDS: VANCOMYCIN PER PHARMACY MC PRN ×2 (06:24→06:29)
[2016-06-27] MEDS: PIPERACILLIN/TAZOBACTAM 2.25 GM in IV NORMAL SALINE 50ML 50 ML IV SCH (06:33)
[2016-06-27] MEDS: IPRATRPIUM/ALBUTEROL 0.5/2.5MG 3 ML NEBU. NEB SCH ×3 (07:25→15:54)
--- NOTE | 2016-06-27 08:01 | RAD ---
EXAM: Abdominal sonogram limited. HISTORY: Distention. TECHNIQUE: Sonographic imaging of the abdomen was performed. COMPARISON: CT dated 06/10/2016. FINDINGS: There is a moderate to large amount of abdominal ascites. There are small left greater than right pleural effusions. The abdominal visceral and vascular structures are not formally assessed. IMPRESSION: 1. Moderate to large amount of abdominal ascites. 2. Small left greater than right pleural effusions. 3. Note is made that the abdominal visceral and basilar structures are not formally assessed on this exam.
[2016-06-27] MEDS ORDERED: DIALYSIS PATIENT. MC PRN (08:30)
[2016-06-27] MEDS ORDERED: ACETAMINOPHEN 500 MG TABLET PO PRN (08:30)
[2016-06-27] MEDS ORDERED: IV NORMAL SALINE 1000ML BAG 1,000 ML IV PRN (08:30)
[2016-06-27] MEDS ORDERED: DIPHENHYDRAMINE 50 MG/ML VIAL. IV PRN ×2 (08:30)
[2016-06-27] MEDS: ALBUMIN HUMAN 25% 200 ML IV PRN ×2 (08:50→09:13)
--- NOTE | 2016-06-27 09:59 | PDOC ---
GENERAL General: vss and afebrile. confused and lethargic. receiving dialysis currently. discussed in detail with daughter. on bi-pap currently due to worsening respiratory status. large amount ascites on us and bilateral pleural effusions likely related to cirrhosis as cardiac function on echo essentially normal. continue supportive care. overall prognosis poor and shared with daughter. Problems: VITAL SIGNS Vital Signs: Vital Signs Date Time Temp Pulse Resp B/P Pulse Ox O2 Delivery O2 Flow Rate FiO2 06/27/16 09:04 94 06/27/16 07:25 97.6 112 19 114/62 BiPAP/CPAP 97.6 06/27/16 00:23 10.0 I & O I & O Intake and Output 06/27/16 07:00 Intake Total 1350 ml Output Total 0 ml Balance 1350 ml Intake Oral 1300 ml IV Total 50 ml Output Urine Total 0 ml # Voids 4 ALLERGIES Allergies: Allergies Coded Allergies Type Severity Reaction Last Updated Verified No Known Drug Allergies 03/13/13 No MEDS Medications: Current Medications Medications (Trade) Dose Ordered Sig/Sherri Start Time Stop Time Status Last Admin Dose Admin Acetaminophen (Tylenol) 500 mg 1X PRN PRN 06/27/16 08:30 06/28/16 08:29 Acetaminophen/ Hydrocodone Bitart (Lortab 5/325) 1 tab PRN Q6HRS PRN 06/26/16 08:15 06/26/16 20:34 1 TAB Albumin Human (Albuminar) 200 ml @ 200 mls/hr 1X PRN PRN 06/27/16 08:30 06/27/16 14:29 06/27/16 09:13 200 MLS/HR Albuterol/ Ipratropium (Duoneb) 3 ml RTQID 06/26/16 12:00 06/27/16 07:25 3 ML Aspirin 81 mg 81 mg [id number] 06/25/16 17:30 06/26/16 07:39 81 MG Darbepoetin Ankit (Aranesp) 60 mcg Fr 06/26/16 21:00 06/26/16 20:34 60 MCG Diphenhydramine HCl (Benadryl) 25 mg 1X PRN PRN 06/27/16 08:30 06/28/16 08:29 Info (PHARMACY MONITORING -- do not chart) 1 each PRN DAILY PRN 06/27/16 08:30 Levofloxacin/ Dextrose 100 ml @ 100 mls/hr Q48H 06/27/16 09:00 Levofloxacin/ Dextrose (Levaquin Per Pharmacy) 1 each PRN DAILY PRN 06/25/16 15:30 Morphine Sulfate 2 mg 2 mg PRN Q3HRS PRN 06/26/16 18:30 06/26/16 21:56 2 MG Naloxone HCl (Narcan) 0.4 mg 1X ONCE 06/25/16 15:15 06/25/16 15:21 DC 06/25/16 15:29 0.4 MG Ondansetron HCl (Zofran) 4 mg PRN Q8HRS PRN 06/26/16 18:00 Pantoprazole Sodium (Protonix) 40 mg DAILYAC 06/26/16 09:00 06/26/16 10:17 40 MG Piperacillin Sod/ Tazobactam Sod (Zosyn Per Pharmacy) 1 each PRN DAILY PRN 06/25/16 15:30 Piperacillin Sod/ Tazobactam Sod/ Sodium Chloride (Zosyn/Iv Sodium Chloride 0.9% 50ml) 50 ml @ 100 mls/hr Q8HRS 06/25/16 23:00 06/27/16 06:33 100 MLS/HR Rifaximin (Xifaxan) 550 mg Q12HR 06/26/16 21:00 06/26/16 20:34 550 MG Simvastatin (Zocor) 10 mg QHS 06/26/16 21:00 06/26/16 20:34 10 MG Sodium Chloride 1,000 ml @ 1,000 mls/hr Q1H PRN 06/27/16 08:30 06/27/16 14:29 Vancomycin HCl 500 mg/Sodium Chloride 100 ml @ 100 mls/hr QTUTHSA 06/27/16 16:00 Vancomycin HCl 1 each 1 each PRN DAILY PRN 06/25/16 15:30 06/27/16 06:29 1 EACH Vancomycin HCl/ Sodium Chloride (Iv Sodium Chloride 0.9% 250ml) 250 ml @ 166.667 mls/hr 1X ONCE 06/25/16 15:45 06/25/16 17:14 DC 06/25/16 16:58 166.667 MLS/HR LAB Lab: Laboratory Tests Test 4/1/17 00:23 O2 Saturation 77% (92-99) Arterial Blood pH 7.36 (7.35-7.45) Arterial Blood pCO2 at Patient Temp 36mmHg (35-46) Arterial Blood pO2 at Patient Temp 44mmHg (65-108) Arterial Blood HCO3 20mmol/L (21-28) Arterial Blood Base Excess -5mmol/L (-3-3) Nutrition Consultation Dietary Evaluation: Recommendations by RD: Add supplement feedings Comments: add supplement of choice when pt eating better Expected Outcomes/Goals: to meet > 75% est nutr needs Malnutrition Findings: Food and Nutrition Intake (Sev: <50% est energy req 5days Weight Status: Appropriate Fluid Accumulation (Severe): Severe DORA GOLDMAN MD Jun 27, 2016 09:59
--- NOTE | 2016-06-27 11:25 | PDOC ---
G I PROGRESS NOTE Subjective Seen in dialysis. Did not awaken from sleep. Physical Exam Abdomen distended, soft not tense, with ascites. Review of Relevant I have reviewed the following items amy (where applicable) has been applied. Labs Laboratory Tests Test 06/25/16 13:45 06/25/16 14:30 06/25/16 17:05 06/26/16 06:10 White Blood Count 9.5x10^3/uL (4.0-11.0) Red Blood Count 2.94x10^6/uL (3.50-5.40) Hemoglobin 10.2g/dL (12.0-15.5) Hematocrit 29.7% (36.0-47.0) Mean Corpuscular Volume 101fL (79-100) Mean Corpuscular Hemoglobin 35pg (25-35) Mean Corpuscular Hemoglobin Concent 34g/dL (31-37) Red Cell Distribution Width 22.7% (11.5-14.5) Platelet Count 109x10^3/uL (140-400) Neutrophils (%) (Auto) 74% (31-73) Lymphocytes (%) (Auto) 9% (24-48) Monocytes (%) (Auto) 16% (0-9) Eosinophils (%) (Auto) 1% (0-3) Basophils (%) (Auto) 0% (0-3) Neutrophils # (Auto) 7.0x10^3uL (1.8-7.7) Lymphocytes # (Auto) 0.8x10^3/uL (1.0-4.8) Monocytes # (Auto) 1.6x10^3/uL (0.0-1.1) Eosinophils # (Auto) 0.1x10^3/uL (0.0-0.7) Basophils # (Auto) 0.0x10^3/uL (0.0-0.2) Platelet Estimate Decreased (ADEQUATE) Poikilocytosis Slight Anisocytosis Mod Target Cells Present [place] Cells Present Prothrombin Time 19.1SEC (11.7-14.0) Prothromb Time International Ratio 1.7 (0.8-1.1) Activated Partial Thromboplast Time 62SEC (24-38) Sodium Level 139mmol/L (136-145) Potassium Level 4.6mmol/L (3.5-5.1) Chloride Level 102mmol/L (98-107) Carbon Dioxide Level 23mmol/L (21-32) Anion Gap 14 (6-14) Blood Urea Nitrogen 7mg/dL (7-20) Creatinine 2.1mg/dL (0.6-1.0) Estimated GFR (Cockcroft-Gault) 23.2 BUN/Creatinine Ratio 3 (6-20) Glucose Level 84mg/dL (70-99) Calcium Level 9.1mg/dL (8.5-10.1) Total Bilirubin 3.2mg/dL (0.2-1.0) Aspartate Amino Transf (AST/SGOT) 104U/L (15-37) Alanine Aminotransferase (ALT/SGPT) 29U/L (14-59) Alkaline Phosphatase 164U/L (46-116) Troponin I Quantitative < 0.017ng/mL (0.000-0.055) AJ-Vid-O-Type Natriuretic Peptide 8872pg/mL (0-124) Total Protein 7.1g/dL (6.4-8.2) Albumin 2.3g/dL (3.4-5.0) Albumin/Globulin Ratio 0.5 (1.0-1.7) Thyroid Stimulating Hormone (TSH) 2.526uIU/mL (0.358-3.74) Salicylates Level < 2.8mg/dL (2.8-20.0) Salicylate Last Dose Date Unk Salicylate Last Dose Time Unk Acetaminophen Level < 10mcg/ml (10-30) Acetaminophen Last Dose Date Unk Acetaminophen Last Dose Time Unk Ethyl Alcohol Level < 10mg/dL (0-10) Urine Collection Type U cath Urine Color Red Urine Clarity Cloudy Urine pH 5.5 Urine Specific [place] 1.020 Urine Protein 100mg/dL (NEG-TRACE) Urine Glucose (UA) Negativemg/dL (NEG) Urine Ketones (Stick) Tracemg/dL (NEG) Urine Blood Large (NEG) Urine Nitrite Negative (NEG) Urine Bilirubin Moderate (NEG) Urine Urobilinogen Dipstick 0.2mg/dL (0.2 mg/dL) Urine Leukocyte Esterase Small (NEG) Urine RBC >40/HPF (0-2) Urine WBC 5-10/HPF (0-4) Urine Squamous Epithelial Cells Few/LPF Urine Renal Epithelial Cells Few/LPF Urine Bacteria Few/HPF (0-FEW) Urine Hyaline Casts Few/HPF Urine Granular Casts Occasional/HPF Urine Opiates Screen Pos (NEG) Urine Methadone Screen Neg (NEG) Urine Barbiturates Neg (NEG) Urine Phencyclidine Screen Neg (NEG) Urine Amphetamine/Methamphetamine Neg (NEG) Urine Benzodiazepines Screen Neg (NEG) Urine Cocaine Screen Neg (NEG) Urine Cannabinoids Screen Neg (NEG) Urine Ethyl Alcohol Neg (NEG) Ammonia 13mcmol/L (11-34) Creatine Kinase 141U/L (26-192) Vitamin B12 Level > 2000pg/mL (247-911) Triglycerides Level 146mg/dL (0-150) Cholesterol Level 186mg/dL (0-200) LDL Cholesterol, Calculated 147mg/dL (0-100) VLDL Cholesterol, Calculated 29mg/dL (0-40) HDL Cholesterol 10mg/dL (40-60) Cholesterol/HDL Ratio 18.6 Random Vancomycin Level 19.7mcg/mL Test 06/27/16 00:23 O2 Saturation 77% (92-99) Arterial Blood pH 7.36 (7.35-7.45) Arterial Blood pCO2 at Patient Temp 36mmHg (35-46) Arterial Blood pO2 at Patient Temp 44mmHg (65-108) Arterial Blood HCO3 20mmol/L (21-28) Arterial Blood Base Excess -5mmol/L (-3-3) Laboratory Tests Test 06/27/16 00:23 O2 Saturation 77% (92-99) Arterial Blood pH 7.36 (7.35-7.45) Arterial Blood pCO2 at Patient Temp 36mmHg (35-46) Arterial Blood pO2 at Patient Temp 44mmHg (65-108) Arterial Blood HCO3 20mmol/L (21-28) Arterial Blood Base Excess -5mmol/L (-3-3) Microbiology 06/25/16 Urine Culture - Preliminary, Resulted 06/25/16 Urine Culture Result 1 (MORIAH) - Preliminary, Resulted Medications Current Medications Naloxone HCl (Narcan) 0.4 mg 1X ONCE IV Last administered on 06/25/16t 15:29; Start 06/25/16 at 15:15; Stop 06/25/16 at 15:21; Status DC Ondansetron HCl (Zofran) 4 mg PRN Q8HRS PRN IV NAUSEA/VOMITING Last administered on 06/26/16 13:17; Start 06/25/16 at 15:15; Stop 06/26/16 at 15:14 ; Status DC Morphine Sulfate 2 mg PRN Q2HR PRN IV PAIN Last administered on 06/26/16 15:13 ; Start 06/25/16 at 15:15; Stop 06/26/16 at 15:14; Status DC Acetaminophen (Tylenol) 650 mg PRN Q4HRS PRN PO FEVER; Start 06/25/16 at 15:15 ; Stop 06/26/16 at 15:14; Status DC Levofloxacin/ Dextrose (Levaquin Per Pharmacy) 1 each PRN DAILY PRN MC SEE COMMENTS; Start 06/25/16 at 15:30 Piperacillin Sod/ Tazobactam Sod (Zosyn Per Pharmacy) 1 each PRN DAILY PRN MC SEE COMMENTS; Start 06/25/16 at 15:30 Vancomycin HCl 1 each 1 each PRN DAILY PRN MC SEE COMMENTS Last administered on 06/27/16 06:29; Start 06/25/16 at 15:30 Levofloxacin/ Dextrose 150 ml @ 100 mls/hr 1X ONCE IV Last administered on 18:29; Start 06/25/16 at 15:45; Stop 06/25/16 at 17:14; Status DC Vancomycin HCl 1.25 gm/Sodium Chloride 250 ml @ 166.667 mls/hr 1X ONCE IV Last administered on 06/25/16 16:58; Start 06/25/16 at 15:45; Stop 06/25/16 at 17:14; Status DC Piperacillin Sod/ Tazobactam Sod/ Sodium Chloride (Zosyn/Iv Sodium Chloride 0.9 % 50ml) 50 ml @ 100 mls/hr 1X ONCE IV Last administered on 06/25/16 16:01; Start 06/25/16 at 15:45; Stop 06/25/16 at 16:14; Status DC Aspirin 81 mg 81 mg [id number] PO Last administered on 06/26/16 07:39; Start 06/25/16 at 17:30 Levofloxacin/ Dextrose 100 ml @ 100 mls/hr Q48H IV ; Start 06/27/16 at 09:00 Piperacillin Sod/ Tazobactam Sod/ Sodium Chloride (Zosyn/Iv Sodium Chloride 0.9 % 50ml) 50 ml @ 100 mls/hr Q8HRS IV Last administered on 06/27/16 06:33; Start 06/25/16 at 23:00 Vancomycin HCl 1 each 1X ONCE MC ; Start 06/27/16 at 06:00; Stop 06/27/16 at 06: 01; Status DC Acetaminophen/ Hydrocodone Bitart (Lortab 5/325) 1 tab PRN Q6HRS PRN PO PAIN MILD TO MOD Last administered on 06/26/16 20:34; Start 06/26/16 at 08:15 Pantoprazole Sodium (Protonix) 40 mg DAILYAC PO Last administered on 06/26/16 10:17; Start 06/26/16 at 09:00 Albuterol/ Ipratropium (Duoneb) 3 ml RTQID NEB Last administered on 06/27/16 07 :25; Start 06/26/16 at 12:00 Simvastatin (Zocor) 10 mg QHS PO Last administered on 06/26/16 20:34; Start at 21:00 Darbepoetin Ankit (Aranesp) 60 mcg Fr SQ Last administered on 06/26/16 20:34; Start 06/26/16 at 21:00 Rifaximin (Xifaxan) 550 mg Q12HR PO Last administered on 06/26/16 20:34; Start 06/26/16 at 21:00 Morphine Sulfate 2 mg PRN Q2HR PRN IV PAIN Last administered on 06/26/16 18:09 ; Start 06/26/16 at 18:00; Stop 06/26/16 at 18:27; Status DC Ondansetron HCl (Zofran) 4 mg PRN Q8HRS PRN IV NAUSEA/VOMITING; Start 06/26/16 at 18:00 Morphine Sulfate 2 mg 2 mg PRN Q3HRS PRN IV PAIN Last administered on 21:56; Start 06/26/16 at 18:30 Vancomycin HCl 500 mg/Sodium Chloride 100 ml @ 100 mls/hr QTUTHSA IV ; Start at 16:00 Sodium Chloride 1,000 ml @ 1,000 mls/hr Q1H PRN IV hypotension; Start 06/27/16 at 08:30; Stop 06/27/16 at 14:29 Albumin Human (Albuminar) 200 ml @ 200 mls/hr 1X PRN PRN IV Hypotension Last administered on 06/27/16t 09:13; Start 06/27/16 at 08:30; Stop 06/27/16 at 14:29 Acetaminophen (Tylenol) 500 mg 1X PRN PRN PO MILD PAIN / TEMP; Start 06/27/16 at 08:30; Stop 06/28/16 at 08:29 Diphenhydramine HCl (Benadryl) 25 mg 1X PRN PRN IV ITCHING; Start 06/27/16 at 08 :30; Stop 06/28/16 at 08:29 Diphenhydramine HCl (Benadryl) 25 mg 1X PRN PRN IV ITCHING; Start 06/27/16 at 08 :30; Stop 06/28/16 at 08:29 Info (PHARMACY MONITORING -- do not chart) 1 each PRN DAILY PRN MC SEE COMMENTS ; Start 06/27/16 at 08:30 Active Scripts Active Pantoprazole Sodium 40 Mg Tablet.dr 40 Mg PO DAILYAC 30 Days Reported Lortab 5-325 mg Tablet (Hydrocodone/Acetaminophen) 1 Each Tablet 1 Tab PO PRN Q6HRS PRN Neomycin Sulfate 500 Mg Tablet 1 Tab PO BID Spironolactone 50 Mg Tablet 1 Tab PO DAILY Vitals/I & O Vital Sign - Last 24 Hours 06/26/16 06/26/16 06/26/16 06/26/16 11:43 13:17 13:59 15:00 Temp 97.5 97.5 Pulse 96 Resp 18 18 16 B/P 99/56 Pulse Ox 88 88 88 89 O2 Delivery Room Air Room Air Room Air Nasal Cannula O2 Flow Rate 2.0 06/26/16 06/26/16 06/26/16 06/26/16 15:13 15:19 16:16 16:30 Resp 20 18 18 Pulse Ox 88 88 92 92 O2 Delivery Nasal Cannula Room Air Nasal Cannula Room Air O2 Flow Rate 2.0 2.0 2.0 2.0 06/26/16 06/26/16 06/26/16 06/26/16 18:09 19:20 20:00 20:03 Temp 97.7 97.7 Pulse 110 Resp 18 16 B/P 109/58 Pulse Ox 92 90 93 O2 Delivery Room Air Nasal Cannula Room Air Nasal Cannula O2 Flow Rate 2.0 3.0 3.0 3.0 06/26/16 06/27/16 06/27/16 06/27/16 23:20 00:23 00:40 01:14 Temp 97.5 97.5 Pulse 112 Resp 16 B/P 95/58 Pulse Ox 92 95 O2 Delivery Simple Mask BiPAP/CPAP O2 Flow Rate 10.0 06/27/16 06/27/16 06/27/16 06/27/16 02:50 03:25 05:15 07:25 Temp 97.5 97.6 97.5 97.6 Pulse 108 112 Resp 20 19 B/P 136/70 114/62 Pulse Ox 91 95 94 94 O2 Delivery BiPAP/CPAP BiPAP/CPAP 06/27/16 06/27/16 07:25 09:04 Pulse Ox 96 94 Intake and Output 06/26/16 06/26/16 06/27/16 15:00 23:00 07:00 Intake Total 200 ml 650 ml 500 ml Output Total 0 ml Balance 200 ml 650 ml 500 ml Problem List Problems Medical Problems: (1) Altered mental state Status: Acute (2) Healthcare associated bacterial pneumonia Status: Acute Assessment Ascites, apparently worse than in past. Plan of Care: Continue current Tx, Mgmt Plan of Care Note If it seems the ascites is affecting her pulmonary status, would do paracentesis (hard for me to tell as not familiar with patient). ISH PACKER MD Jun 27, 2016 11:25
--- NOTE | 2016-06-27 11:34 | PDOC ---
Dialysis Progress Note Dialysis Note Dialysis Note Seen on Hemodialysis, tolerating treatment Poorly Vitals on Hemodialysis: 106/52 96 on Bipap General Appearance: Unarousable Alert Oriented x ? 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 admin Vitals Vital Signs Vital Signs Date Time Temp Pulse Resp B/P Pulse Ox O2 Delivery O2 Flow Rate FiO2 06/27/16 09:04 94 06/27/16 07:25 97.6 112 19 114/62 BiPAP/CPAP 97.6 06/27/16 00:23 10.0 Labs Last Labs Laboratory Tests Test 06/25/16 13:45 06/25/16 14:30 06/25/16 17:05 06/26/16 06:10 White Blood Count 9.5x10^3/uL (4.0-11.0) Red Blood Count 2.94x10^6/uL (3.50-5.40) Hemoglobin 10.2g/dL (12.0-15.5) Hematocrit 29.7% (36.0-47.0) Mean Corpuscular Volume 101fL (79-100) Mean Corpuscular Hemoglobin 35pg (25-35) Mean Corpuscular Hemoglobin Concent 34g/dL (31-37) Red Cell Distribution Width 22.7% (11.5-14.5) Platelet Count 109x10^3/uL (140-400) Neutrophils (%) (Auto) 74% (31-73) Lymphocytes (%) (Auto) 9% (24-48) Monocytes (%) (Auto) 16% (0-9) Eosinophils (%) (Auto) 1% (0-3) Basophils (%) (Auto) 0% (0-3) Neutrophils # (Auto) 7.0x10^3uL (1.8-7.7) Lymphocytes # (Auto) 0.8x10^3/uL (1.0-4.8) Monocytes # (Auto) 1.6x10^3/uL (0.0-1.1) Eosinophils # (Auto) 0.1x10^3/uL (0.0-0.7) Basophils # (Auto) 0.0x10^3/uL (0.0-0.2) Platelet Estimate Decreased (ADEQUATE) Poikilocytosis Slight Anisocytosis Mod Target Cells Present [place] Cells Present Prothrombin Time 19.1SEC (11.7-14.0) Prothromb Time International Ratio 1.7 (0.8-1.1) Activated Partial Thromboplast Time 62SEC (24-38) Sodium Level 139mmol/L (136-145) Potassium Level 4.6mmol/L (3.5-5.1) Chloride Level 102mmol/L (98-107) Carbon Dioxide Level 23mmol/L (21-32) Anion Gap 14 (6-14) Blood Urea Nitrogen 7mg/dL (7-20) Creatinine 2.1mg/dL (0.6-1.0) Estimated GFR (Cockcroft-Gault) 23.2 BUN/Creatinine Ratio 3 (6-20) Glucose Level 84mg/dL (70-99) Calcium Level 9.1mg/dL (8.5-10.1) Total Bilirubin 3.2mg/dL (0.2-1.0) Aspartate Amino Transf (AST/SGOT) 104U/L (15-37) Alanine Aminotransferase (ALT/SGPT) 29U/L (14-59) Alkaline Phosphatase 164U/L (46-116) Troponin I Quantitative < 0.017ng/mL (0.000-0.055) DZ-[id number]-W-Type Natriuretic Peptide 8872pg/mL (0-124) Total Protein 7.1g/dL (6.4-8.2) Albumin 2.3g/dL (3.4-5.0) Albumin/Globulin Ratio 0.5 (1.0-1.7) Thyroid Stimulating Hormone (TSH) 2.526uIU/mL (0.358-3.74) Salicylates Level < 2.8mg/dL (2.8-20.0) Salicylate Last Dose Date Unk Salicylate Last Dose Time Unk Acetaminophen Level < 10mcg/ml (10-30) Acetaminophen Last Dose Date Unk Acetaminophen Last Dose Time Unk Ethyl Alcohol Level < 10mg/dL (0-10) Urine Collection Type U cath Urine Color Red Urine Clarity Cloudy Urine pH 5.5 Urine Specific [place] 1.020 Urine Protein 100mg/dL (NEG-TRACE) Urine Glucose (UA) Negativemg/dL (NEG) Urine Ketones (Stick) Tracemg/dL (NEG) Urine Blood Large (NEG) Urine Nitrite Negative (NEG) Urine Bilirubin Moderate (NEG) Urine Urobilinogen Dipstick 0.2mg/dL (0.2 mg/dL) Urine Leukocyte Esterase Small (NEG) Urine RBC >40/HPF (0-2) Urine WBC 5-10/HPF (0-4) Urine Squamous Epithelial Cells Few/LPF Urine Renal Epithelial Cells Few/LPF Urine Bacteria Few/HPF (0-FEW) Urine Hyaline Casts Few/HPF Urine Granular Casts Occasional/HPF Urine Opiates Screen Pos (NEG) Urine Methadone Screen Neg (NEG) Urine Barbiturates Neg (NEG) Urine Phencyclidine Screen Neg (NEG) Urine Amphetamine/Methamphetamine Neg (NEG) Urine Benzodiazepines Screen Neg (NEG) Urine Cocaine Screen Neg (NEG) Urine Cannabinoids Screen Neg (NEG) Urine Ethyl Alcohol Neg (NEG) Ammonia 13mcmol/L (11-34) Creatine Kinase 141U/L (26-192) Vitamin B12 Level > 2000pg/mL (247-911) Triglycerides Level 146mg/dL (0-150) Cholesterol Level 186mg/dL (0-200) LDL Cholesterol, Calculated 147mg/dL (0-100) VLDL Cholesterol, Calculated 29mg/dL (0-40) HDL Cholesterol 10mg/dL (40-60) Cholesterol/HDL Ratio 18.6 Random Vancomycin Level 19.7mcg/mL Test 06/27/16 00:23 O2 Saturation 77% (92-99) Arterial Blood pH 7.36 (7.35-7.45) Arterial Blood pCO2 at Patient Temp 36mmHg (35-46) Arterial Blood pO2 at Patient Temp 44mmHg (65-108) Arterial Blood HCO3 20mmol/L (21-28) Arterial Blood Base Excess -5mmol/L (-3-3) Laboratory Tests Test 06/27/16 00:23 O2 Saturation 77% (92-99) Arterial Blood pH 7.36 (7.35-7.45) Arterial Blood pCO2 at Patient Temp 36mmHg (35-46) Arterial Blood pO2 at Patient Temp 44mmHg (65-108) Arterial Blood HCO3 20mmol/L (21-28) Arterial Blood Base Excess -5mmol/L (-3-3) Assessment Assessment Problems Medical Problems: (1) Altered mental state Status: Acute (2) Healthcare associated bacterial pneumonia Status: Acute Problems: Plan Plan of Care Problems Medical Problems: (1) Altered mental state Status: Acute (2) Healthcare associated bacterial pneumonia Status: Acute WIL GRANDE MD Jun 27, 2016 11:34
[2016-06-27] MEDS ORDERED: VANCOMYCIN 1 GM in IV NORMAL SALINE 250ML 250 ML IV ONE (12:30)
[2016-06-27] MEDS ORDERED: NOREPINEPHRINE VIAL 8 MG in IV NORMAL SALINE 250ML 250 ML IV PRN (12:45)
--- NOTE | 2016-06-27 13:00 | PDOC ---
PROGRESS NOTES Assessment Assessment Metabolic encephalopathy. Confusion. Hepatic cirrhosis, alcohol related. Hyperbilirubinemia. Renal failure on dialysis. UTI CHF? Pulmonary effusion. COPD HTN HLD Alcoholism. RECOMMENDATIONS/PLAN: EEG Continue Zocor 10 mg HS. Treat UTI and other medical diseases. OT/PT. 2 HCTs negative without acute findings. Lab: TSH, Vit B12 WNL HISTORY OF THE PRESENT ILLNESS: 71-y-old female patient with above medical diseases has recurrent mental status changes and confusional episodes. She was here in [facility] about 2 weeks ago due to mental status changes. She was in dialysis and was noted to have mental status change again and confusion to be brought for hospitalization. Her HCT showed no acute findings except cerebral atrophy. No focalized sensory or motor deficits. She is awake but not able to communicate on 06/27. PAST MEDICAL HISTORY: Please see above. PAST SURGERY HISTORY: Appendectomy Cholecystectomy Abdominal surgery Back surgery. ALLERGY: Reviewed. MEDICATIONS: Refer to [facility] FAMILY HISTORY: HTN CAD SOCIAL HISTORY: Lives alone at home with help from health care coordinator. Denies current smoking, drinking, and illicit drug use. She drinks wine heavily almost on a daily basis for about 40 years. REVIEW OF SYSTEMS: Constitutional: Mild malnutrition. Head: No recent traumatic brain or head injury. Skin: No edema, or rash. Ear: No infection. Eyes: No vision loss or color blindness. Nose: No bleeding or purulent discharges. Hearing: Hearing decrease. Neck: No injury. Breast: No history of cancer, masses,or discharges. Cardiac: HTN, HLD. Pulmonary: OPD. GI: No GI ulcer, GI bleeding. Urinary/genital: UTI. Endocrinologic: No cousin face, craniofacial dysmorphism, polydactyly. Skeletomuscular: Generalized weakness. Neurological: see HP. Psychiatric: Denies drug use/abuse. Otherwise, not [id number] review of systems. PHYSICAL EXAMINATION: General appearance is in subacute distress. HEENT: Normocephalic and nontraumatic. Eyes, nose, ears, and throat are unremarkable. Neck is supple. No lymphadenopathy. No bruits are heard over the carotid artery. No crepitus. Cardiovascular: S1, S2, regular rate and rhythm. Pulmonary: Clear to auscultation bilaterally. Abdomen: Bowel sounds are positive. Extremities: No rash, lesions, or edema. No restriction of range of motion NEUROLOGICAL EXAMINATION: Awake. Not oriented to time, but not sure about place and person. PERRL. EOMI. CN: no focal findings. Muscle tone: within normal. Muscle strength: 4+ DTR: 2 Plantar reflex: Neutral response bilaterally Gait: not examined in bed. Sensory exam: no abnormal findings. No acute cerebellar signs elicited. F-T-N test not performed due to not follow commands. Objective Objective Vital Signs Date Time Temp Pulse Resp B/P Pulse Ox O2 Delivery O2 Flow Rate FiO2 06/27/16 12:45 94 06/27/16 07:25 97.6 112 19 114/62 BiPAP/CPAP 97.6 06/27/16 00:23 10.0 Intake and Output 06/27/16 07:00 Intake Total 1350 ml Output Total 0 ml Balance 1350 ml Intake Oral 1300 ml IV Total 50 ml Output Urine Total 0 ml # Voids 4 Vitals Signs Vitals VS - Last 72 Hours, by Label Date Time Temp Pulse Resp B/P Pulse Ox O2 Delivery O2 Flow Rate FiO2 06/27/16 12:45 94 06/27/16 09:04 94 06/27/16 07:25 96 06/27/16 07:25 97.6 112 19 114/62 94 BiPAP/CPAP 97.6 06/27/16 05:15 94 06/27/16 03:25 97.5 108 20 136/70 95 BiPAP/CPAP 97.5 06/27/16 02:50 91 06/27/16 01:14 95 BiPAP/CPAP 06/27/16 00:40 92 06/27/16 00:23 Simple Mask 10.0 06/26/16 23:20 97.5 112 16 95/58 97.5 06/26/16 20:03 93 Nasal Cannula 3.0 06/26/16 20:00 Room Air 3.0 06/26/16 19:20 97.7 110 16 109/58 90 Nasal Cannula 3.0 97.7 06/26/16 18:09 18 92 Room Air 2.0 06/26/16 16:30 18 92 Room Air 2.0 06/26/16 16:16 92 Nasal Cannula 2.0 06/26/16 15:19 18 88 Room Air 2.0 06/26/16 15:13 20 88 Nasal Cannula 2.0 06/26/16 15:00 97.5 96 16 99/56 89 Nasal Cannula 2.0 97.5 06/26/16 13:59 18 88 Room Air 06/26/16 13:17 18 88 Room Air 06/26/16 11:43 88 Room Air 06/26/16 10:35 97.6 89 17 118/57 92 Room Air 97.6 06/26/16 08:00 Room Air 06/26/16 07:40 97.4 90 16 109/60 92 Room Air 97.4 Laboratory Laboratory Laboratory Tests Test 06/27/16 00:23 O2 Saturation 77% (92-99) Arterial Blood pH 7.36 (7.35-7.45) Arterial Blood pCO2 at Patient Temp 36mmHg (35-46) Arterial Blood pO2 at Patient Temp 44mmHg (65-108) Arterial Blood HCO3 20mmol/L (21-28) Arterial Blood Base Excess -5mmol/L (-3-3) Microbiology 06/25/16 Urine Culture - Preliminary, Resulted 06/25/16 Urine Culture Result 1 (MORIAH) - Preliminary, Resulted Medication Medications Current Medications Acetaminophen (Tylenol) 500 mg 1X PRN PRN PO MILD PAIN / TEMP; Start 06/27/16 at 08:30; Stop 06/28/16 at 08:29 Albumin Human (Albuminar) 200 ml @ 200 mls/hr 1X PRN PRN IV Hypotension Last administered on 06/27/16 09:13; Start 06/27/16 at 08:30; Stop 06/27/16 at 14:29 Darbepoetin Ankit (Aranesp) 60 mcg Fr SQ Last administered on 06/26/16 20:34; Start 06/26/16 at 21:00 Diphenhydramine HCl (Benadryl) 25 mg 1X PRN PRN IV ITCHING; Start 06/27/16 at 08 :30; Stop 06/28/16 at 08:29 Diphenhydramine HCl (Benadryl) 25 mg 1X PRN PRN IV ITCHING; Start 06/27/16 at 08 :30; Stop 06/28/16 at 08:29 Info 1 each 1 each PRN DAILY PRN MC SEE COMMENTS; Start 06/27/16 at 08:30 Levofloxacin/ Dextrose (LEVAQUIN 500mg PREMIX) 100 ml @ 100 mls/hr Q48H IV ; Start 06/27/16 at 09:00 Morphine Sulfate 2 mg PRN Q2HR PRN IV PAIN Last administered on 06/26/16 18:09 ; Start 06/26/16 at 18:00; Stop 06/26/16 at 18:27; Status DC Morphine Sulfate 2 mg 2 mg PRN Q3HRS PRN IV PAIN Last administered on 21:56; Start 06/26/16 at 18:30 Norepinephrine Bitartrate/Sodium Chloride (Levophed Vial/ Iv Sodium Chloride 0.9 % 250ml) 258 ml @ 0 mls/hr CONT PRN IV SEE I/O RECORD; Start 06/27/16 at 12:45 Ondansetron HCl (Zofran) 4 mg PRN Q8HRS PRN IV NAUSEA/VOMITING; Start 06/26/16 at 18:00 Rifaximin (Xifaxan) 550 mg Q12HR PO Last administered on 06/26/16 20:34; Start 06/26/16 at 21:00 Simvastatin (Zocor) 10 mg QHS PO Last administered on 06/26/16 20:34; Start at 21:00 Sodium Chloride 1,000 ml @ 1,000 mls/hr Q1H PRN IV hypotension; Start 06/27/16 at 08:30; Stop 06/27/16 at 14:29 Vancomycin HCl 1 each 1X ONCE MC ; Start 06/27/16 at 06:00; Stop 06/27/16 at 06: 01; Status DC Vancomycin HCl 500 mg/Sodium Chloride 100 ml @ 100 mls/hr QTUTHSA IV ; Start at 16:00 Vancomycin HCl 1 gm/Sodium Chloride 250 ml @ 250 mls/hr 1X ONCE IV ; Start 06/27/16 at 12:30; Stop 06/27/16 at 12:36; Status DC Comment Review of Relevant I have reviewed the following items amy (where applicable) has been applied. EMILY COELLO MD Jun 27, 2016 13:00
[2016-06-27 13:35] LABS: ALBUMIN 3.3 g/dL (3.4-5.0); ALBUMIN/GLOBULIN RATIO 0.9 (1.0-1.7); CALCIUM 9.5 mg/dL (8.5-10.1); CREATININE 1.6 mg/dL (0.6-1.0); GFR 31.7; POTASSIUM 4.1 mmol/L (3.5-5.1); TOTAL BILIRUBIN 3.5 mg/dL (0.2-1.0); TOTAL PROTEIN 6.8 g/dL (6.4-8.2)
[2016-06-27 14:28] LABS: BASO % 1 % (0-3); EOS % 1 % (0-3); HEMATOCRIT 28.3 % (36.0-47.0); HEMOGLOBIN 9.9 g/dL (12.0-15.5); LYMPH # 0.5 x10^3/uL (1.0-4.8); LYMPH % 6 % (24-48); MEAN CORPUSCULAR HEMOGLOBIN 36 pg (25-35); MEAN CORPUSCULAR HGB CONC 35 g/dL (31-37); MEAN CORPUSCULAR VOLUME 103 fL (79-100); MONO % 6 % (0-9); NEUT % 86 % (31-73); PLATELET COUNT 76 x10^3/uL (140-400); RED BLOOD COUNT 2.75 x10^6/uL (3.50-5.40); RED CELL DISTRIBUTION WIDTH 23.3 % (11.5-14.5); WHITE BLOOD COUNT 7.9 x10^3/uL (4.0-11.0)
[2016-06-27 15:02] LABS: PLT ESTIMATE DECREASED (ADEQUATE); POLYCHROMASIA SLIGHT
[2016-06-27 15:03] LABS: TOXIC GRANULATION MOD; TOXIC VACUOLATION MARKED
--- NOTE | 2016-06-27 15:54 | RAD ---
PROCEDURE Complete abdominal ultrasound dated 06/27/2016. HISTORY Evaluate for ascites. TECHNIQUE Routine sonographic imaging performed. COMPARISON None. FINDINGS Liver is homogeneous in echogenicity. No focal hepatic mass. Biliary tree normal in caliber. Common bile duct measures 3 millimeter. Gallbladder is surgically absent. No abnormality of the gallbladder fossa. Right kidney measures 8.5 centimeter in length. Left kidney measures 8.5 centimeter in length. No hydronephrosis. Spleen is homogeneous in echogenicity measures 7.7 centimeters longitudinal dimension. Pancreas is not well visualized due to overlying bowel gas. Limited visualized portions of aorta and IVC are unremarkable. There is moderate ascites. IMPRESSION - Moderate amount of ascites. - Status post cholecystectomy. - Atrophic kidneys. Electronically signed by: Beka Crawford (Jun 27, 2016 15:53:03)
[2016-06-27] MEDS ORDERED: VANCOMYCIN 500 MG in IV NORMAL SALINE 100ML 100 ML IV SCH (16:00)
[2016-06-27 16:13] LABS: HCO3 ABG 24 mmol/L (21-28); PCO2 ABG 35 mmHg (35-46); PH ABG 7.46 (7.35-7.45); PO2 ABG 67 mmHg (65-108); SAT O2 ABG 93 % (92-99)
[2016-06-27 16:30] LABS: FIO2 ABG 70
[2016-06-27] MEDS: MORPHINE SULFATE 2 MG/ML DISP.SYRIN. IV PRN (18:57)
--- NOTE | 2016-06-27 19:12 | PDOC ---
PULMONARY PROGRESS NOTES Vitals Vital Signs Date Time Temp Pulse Resp B/P Pulse Ox O2 Delivery O2 Flow Rate FiO2 06/27/16 18:57 26 62 Nasal Cannula 06/27/16 18:00 112 85/41 06/27/16 17:05 97.4 97.4 06/27/16 00:23 10.0 Lungs: Clear Cardiovascular: S1, S2 Abdomen: Soft, Non-tender Extremities: No Edema Labs Laboratory Tests Test 06/26/16 06:10 06/27/16 00:23 06/27/16 12:30 06/27/16 13:00 Triglycerides Level 146mg/dL (0-150) Cholesterol Level 186mg/dL (0-200) LDL Cholesterol, Calculated 147mg/dL (0-100) VLDL Cholesterol, Calculated 29mg/dL (0-40) HDL Cholesterol 10mg/dL (40-60) Cholesterol/HDL Ratio 18.6 Random Vancomycin Level 19.7mcg/mL O2 Saturation 77% (92-99) 93% (92-99) Arterial Blood pH 7.36 (7.35-7.45) 7.46 (7.35-7.45) Arterial Blood pCO2 at Patient Temp 36mmHg (35-46) 35mmHg (35-46) Arterial Blood pO2 at Patient Temp 44mmHg (65-108) 67mmHg (65-108) Arterial Blood HCO3 20mmol/L (21-28) 24mmol/L (21-28) Arterial Blood Base Excess -5mmol/L (-3-3) 1mmol/L (-3-3) FiO2 70 White Blood Count 7.9x10^3/uL (4.0-11.0) Red Blood Count 2.75x10^6/uL (3.50-5.40) Hemoglobin 9.9g/dL (12.0-15.5) Hematocrit 28.3% (36.0-47.0) Mean Corpuscular Volume 103fL (79-100) Mean Corpuscular Hemoglobin 36pg (25-35) Mean Corpuscular Hemoglobin Concent 35g/dL (31-37) Red Cell Distribution Width 23.3% (11.5-14.5) Platelet Count 76x10^3/uL (140-400) Neutrophils (%) (Auto) 86% (31-73) Lymphocytes (%) (Auto) 6% (24-48) Monocytes (%) (Auto) 6% (0-9) Eosinophils (%) (Auto) 1% (0-3) Basophils (%) (Auto) 1% (0-3) Neutrophils # (Auto) 6.8x10^3uL (1.8-7.7) Lymphocytes # (Auto) 0.5x10^3/uL (1.0-4.8) Monocytes # (Auto) 0.5x10^3/uL (0.0-1.1) Eosinophils # (Auto) 0.1x10^3/uL (0.0-0.7) Basophils # (Auto) 0.0x10^3/uL (0.0-0.2) Segmented Neutrophils % 82% (35-66) Band Neutrophils % 8% (0-9) Lymphocytes % 4% (24-48) Monocytes % 6% (0-10) Toxic Granulation Mod Toxic Vacuolation Marked Platelet Estimate Decreased (ADEQUATE) Polychromasia Slight Sodium Level 141mmol/L (136-145) Potassium Level 4.1mmol/L (3.5-5.1) Chloride Level 102mmol/L (98-107) Carbon Dioxide Level 28mmol/L (21-32) Anion Gap 11 (6-14) Blood Urea Nitrogen 5mg/dL (7-20) Creatinine 1.6mg/dL (0.6-1.0) Estimated GFR (Cockcroft-Gault) 31.7 BUN/Creatinine Ratio 3 (6-20) Glucose Level 77mg/dL (70-99) Calcium Level 9.5mg/dL (8.5-10.1) Total Bilirubin 3.5mg/dL (0.2-1.0) Aspartate Amino Transf (AST/SGOT) 100U/L (15-37) Alanine Aminotransferase (ALT/SGPT) 20U/L (14-59) Alkaline Phosphatase 130U/L (46-116) Troponin I Quantitative 0.036ng/mL (0.000-0.055) Total Protein 6.8g/dL (6.4-8.2) Albumin 3.3g/dL (3.4-5.0) Albumin/Globulin Ratio 0.9 (1.0-1.7) Laboratory Tests Test 06/27/16 00:23 06/27/16 12:30 06/27/16 13:00 O2 Saturation 77% (92-99) 93% (92-99) Arterial Blood pH 7.36 (7.35-7.45) 7.46 (7.35-7.45) Arterial Blood pCO2 at Patient Temp 36mmHg (35-46) 35mmHg (35-46) Arterial Blood pO2 at Patient Temp 44mmHg (65-108) 67mmHg (65-108) Arterial Blood HCO3 20mmol/L (21-28) 24mmol/L (21-28) Arterial Blood Base Excess -5mmol/L (-3-3) 1mmol/L (-3-3) FiO2 70 White Blood Count 7.9x10^3/uL (4.0-11.0) Red Blood Count 2.75x10^6/uL (3.50-5.40) Hemoglobin 9.9g/dL (12.0-15.5) Hematocrit 28.3% (36.0-47.0) Mean Corpuscular Volume 103fL (79-100) Mean Corpuscular Hemoglobin 36pg (25-35) Mean Corpuscular Hemoglobin Concent 35g/dL (31-37) Red Cell Distribution Width 23.3% (11.5-14.5) Platelet Count 76x10^3/uL (140-400) Neutrophils (%) (Auto) 86% (31-73) Lymphocytes (%) (Auto) 6% (24-48) Monocytes (%) (Auto) 6% (0-9) Eosinophils (%) (Auto) 1% (0-3) Basophils (%) (Auto) 1% (0-3) Neutrophils # (Auto) 6.8x10^3uL (1.8-7.7) Lymphocytes # (Auto) 0.5x10^3/uL (1.0-4.8) Monocytes # (Auto) 0.5x10^3/uL (0.0-1.1) Eosinophils # (Auto) 0.1x10^3/uL (0.0-0.7) Basophils # (Auto) 0.0x10^3/uL (0.0-0.2) Segmented Neutrophils % 82% (35-66) Band Neutrophils % 8% (0-9) Lymphocytes % 4% (24-48) Monocytes % 6% (0-10) Toxic Granulation Mod Toxic Vacuolation Marked Platelet Estimate Decreased (ADEQUATE) Polychromasia Slight Sodium Level 141mmol/L (136-145) Potassium Level 4.1mmol/L (3.5-5.1) Chloride Level 102mmol/L (98-107) Carbon Dioxide Level 28mmol/L (21-32) Anion Gap 11 (6-14) Blood Urea Nitrogen 5mg/dL (7-20) Creatinine 1.6mg/dL (0.6-1.0) Estimated GFR (Cockcroft-Gault) 31.7 BUN/Creatinine Ratio 3 (6-20) Glucose Level 77mg/dL (70-99) Calcium Level 9.5mg/dL (8.5-10.1) Total Bilirubin 3.5mg/dL (0.2-1.0) Aspartate Amino Transf (AST/SGOT) 100U/L (15-37) Alanine Aminotransferase (ALT/SGPT) 20U/L (14-59) Alkaline Phosphatase 130U/L (46-116) Troponin I Quantitative 0.036ng/mL (0.000-0.055) Total Protein 6.8g/dL (6.4-8.2) Albumin 3.3g/dL (3.4-5.0) Albumin/Globulin Ratio 0.9 (1.0-1.7) Medications Active Scripts Medications Dose Route/Sig Days Date Category Lortab 5-325 mg Tablet (Hydrocodone/Acetaminophen) 1 Each Tablet 1 Tab PO PRN Q6HRS PRN 06/25/16 Reported Neomycin Sulfate 500 Mg Tablet 1 Tab PO BID 04/02/16 Reported Spironolactone 50 Mg Tablet 1 Tab PO DAILY 04/02/16 Reported Pantoprazole Sodium 40 Mg Tablet.dr 40 Mg PO DAILYAC 30 01/23/16 Rx Impression . FULL NOTE DICTATED THANKS PT EXPECTED TO DO POORLY LITZY HEAD MD Jun 27, 2016 19:12
[2016-06-27] MEDS ORDERED: MORPHINE SULFATE 4 MG/ML DISP.SYRIN. IV PRN (19:15)
[2016-06-27] MEDS ORDERED: MORPHINE SULFATE 2 MG/ML DISP.SYRIN. IV PRN (20:00)
--- NOTE | 2016-06-28 01:55 | CONS ---
DATE OF CONSULTATION: 06/27/2016 ATTENDING PHYSICIAN: Hubert Parker M.D. REASON FOR CONSULTATION: The patient is seen in pulmonary consultation at the request of Dr. Parker for acute respiratory failure. HISTORY OF PRESENT ILLNESS: The patient is a 71-year-old female with a history of alcoholic liver disease. She underwent dialysis earlier today. She was being transported to the sixth floor. I saw her when she was on the sixth floor, was having some respiratory distress. Ultimately, a rapid response was called. I was asked to see her in consultation. I obtained a stat arterial blood gas and arterial blood gas revealed a pH of 7.36, PaCO2 of 36, pO2 of 44. The patient was transferred to the intensive care unit, placed on BiPAP. She was started on empiric antibiotics and labs were obtained. Since then her daughter arrived to the hospital. She is now a [id number] and comfort care. She is off of BiPAP. She appears to be comfortable. PAST MEDICAL HISTORY: End-stage liver disease, hypertension, hyperlipidemia, gastroesophageal reflux, acute renal failure on hemodialysis. PAST SURGICAL HISTORY: Status post appendectomy. ALLERGIES: No known drug allergies. CURRENT MEDICATIONS: List was reviewed. REVIEW OF SYSTEMS: Unobtainable secondary to the patient's condition. PHYSICAL EXAMINATION: GENERAL: The patient appeared to be jaundiced and cirrhotic. She was in mild respiratory distress initially. She is now receiving IV morphine. She appears to be comfortable. HEENT: Eyes, the sclerae were icteric. NECK: Jugular venous distention was elevated. LUNGS: Show rales bilaterally. CARDIOVASCULAR: Regular rate and rhythm with S1, S2, no S3. ABDOMEN: Soft, distended. EXTREMITIES: No clubbing or cyanosis, some edema. NEUROLOGIC: The patient was confused. LABORATORY DATA: Noted. White count was normal. Hemoglobin and hematocrit were noted. Arterial blood gas as indicated above. INR was 1.7. Electrolytes were noted. AST was elevated, total bilirubin was elevated. Albumin was low. Chest x-ray revealed small bilateral effusion on the right and infiltrate on the right. IMPRESSION: 1. Acute respiratory failure, multifactorial secondary to end-stage liver disease, possible sepsis. 2. Ascites. 3. End-stage renal disease, on hemodialysis. 4. Metabolic and toxic encephalopathy. 5. Severe protein malnutrition present upon admission. 6. Sepsis with hypotension. PLAN: As indicated above, initially the patient was transferred to the Intensive Care Unit for aggressive measures. Since then her daughter has arrived and wished to proceed with comfort care. BiPAP has been discontinued. We will continue to provide morphine as needed. Discontinue norepinephrine. Discontinue antibiotics, blood draws. I do appreciate the privilege in sharing in the patient's care. Total critical care time of 40 minutes. LITZY HEAD MD DR: SONAL/gerda JOB#: [id number] / [id number]
== END 2016-06-28 03:20 | disposition expired | DRG 871 ==
LOC: ER 13:38 → 6 SOUTH 14:36 → 1 WEST ICU 06-27 14:16
PROVIDERS: ADMIT Family Medicine; ATTEND Family Medicine
PROC: 5A09357 Assistance with Respiratory Ventilation, Less than 24 Consecutive Hours, Continuous Positive Airway Pressure (ICD-10-PCS; principal; 2016-06-27)
PROC: 5A1D00Z (ICD-10-PCS; 2016-06-27)
DX: A41.9 Sepsis, unspecified organism (principal); E43 Unspecified severe protein-calorie malnutrition; G92 Toxic encephalopathy; J15.9 Unspecified bacterial pneumonia; J96.00 Acute respiratory failure, unspecified whether with hypoxia or hypercapnia; N17.0 Acute kidney failure with tubular necrosis; N18.6 End stage renal disease; I12.0 Hypertensive chronic kidney disease with stage 5 chronic kidney disease or end stage renal disease; J44.0 Chronic obstructive pulmonary disease with (acute) lower respiratory infection; N39.0 Urinary tract infection, site not specified; J90 Pleural effusion, not elsewhere classified; E78.00 Pure hypercholesterolemia, unspecified; E78.5 Hyperlipidemia, unspecified; F10.20 Alcohol dependence, uncomplicated; K21.9 Gastro-esophageal reflux disease without esophagitis; K70.31 Alcoholic cirrhosis of liver with ascites; K70.40 Alcoholic hepatic failure without coma; Y95 Nosocomial condition; Z51.5 Encounter for palliative care; Z66 Do not resuscitate; D73.1 Hypersplenism; D69.6 Thrombocytopenia, unspecified; D64.9 Anemia, unspecified; F41.9 Anxiety disorder, unspecified; Z68.23 Body mass index [BMI] 23.0-23.9, adult; Z79.899 Other long term (current) drug therapy; Z82.49 Family history of ischemic heart disease and other diseases of the circulatory system; Z90.49 Acquired absence of other specified parts of digestive tract; Z99.2 Dependence on renal dialysis; Z79.82 Long term (current) use of aspirin
CPT/HCPCS: 36415; 36600; 70450; 71010; 76705; 80053; 80061; 80202; 81001; 82140; 82550; 82607; 82805; 83880; 84443; 84484; 85007; 85027; 85610; 85730; 87086; 93005; 93306; 94250; 94640; 94660; 94760; 96374; 96375; 99406; G0480; G0481; G6038; J0881; J1956; J2270; J2310; J2405; J2543; J3370; J7050; J7620; P9046; 80196; 99285-25; J7030